=== PATIENT | female | born 1975 | race Caucasian/White ===

== ENCOUNTER 2016-07-12 15:14 | Inpatient (IN) | payer MEDICAID ==
[~2016-07-12] VITALS: Ht 162.6 cm; Wt 62.1 kg
[2016-07-12 14:43] VITALS: BP 116/82
[2016-07-12] MEDS: HYDROcodone/APAP 7.5 MG/325 MG (LORTAB, LORCET PLUS) TABLET PO PRN ×2 (15:47→21:22)
--- NOTE | 2016-07-12 15:59 | Physical Therapy Evaluation ---
PT Evaluation-General Medical Diagnosis Admission Date Jul 12, 2016 at 15:14 Medical Diagnosis: left hip fracture, ARDS, ARF Onset Date: Jul 12, 2016 Therapy Diagnosis Therapy Diagnosis: weakness, abn gait Precautions Precautions/Isolations: Standard Precautions Weight Bear Status Weight Bearing Restriction: Weight Bearing/Tolerated (left LE) Location Restriction: L LE Referral Physician: Ford Reason for Referral: Evaluation/Treatment Medical History Pertinent Medical History: DM Additional Medical History ETOH Current History Began 05/04/16 with esophageal perforation that was subsequently repaired. This was followed by lung decortication. She was intubated and remains with a tracheostomy. She fell on 07/08/16 and sustained a left hip fracture requiring a karen to repair. She is WBAT. She has also had aspiration pneumonia. Approx 1 week ago, her sig other experienced a medical event and . Reviewed History: Yes Social History Home: Single Level Current Living Status: unsure at this time Entry Into Home: Level Entry (per pt report) Prior/Core FIM Prior Level of Function Functional [place] Measure 0=Not Assessed/NA 4=Minimal Assistance 1=Total Assistance 5=Supervision or Setup 2=Maximal Assistance 6=Modified [place] 3=Moderate Assistance 7=Complete [place] Bed Mobility: 7 Transfers (B,C,W/C) (FIM): 7 Gait: 7 Pt indicates she was indep before April of 2016. Indicated that she still drives and able to ambulate in the community. She also indicated that prior to this event she was on disability but did not indicate why. She does not work. PT Evaluation-Current Subjective Agrees to stand EOB with this therapist. Indicates her left hip hurts "really" bad but did not rate or describe it. Objective Patient Orientation: Person, Place Problem Solving: Fair Attachments: Oxygen ROM/Strength ROM Lower Extremities WFL ; left hip flexion to approx 90 degrees only Strenght Lower Extremities Right LE strength is grossly 4-/5 throughout except DF which is 2/5. Left LE strength is grossly 3/5 throughout except DF which is 2/5. Integumentary/Posture Integumentary Refer to nursing notes. Bowel Incontinence: Yes Bladder Incontinence: Yes Posture Normal and symmetrical Neuromuscular (Tone, Coordination, Reflexes) Intact reflexes and no noted tone. Coordination LE's impaired bilaterally. Sensory Vision: Wears Glasses Hearing: Functional Hand Dominance: Right Sensation Right Lower Extremit: Intact Sensation Left Lower Extremity: Intact Transfers Functional [place] Measure 0=Not Assessed/NA 4=Minimal Assistance 1=Total Assistance 5=Supervision or Setup 2=Maximal Assistance 6=Modified [place] 3=Moderate Assistance 7=Complete IndependenceIRFPAI Quality Coding Scale 6 Independent with activity with or without an assistive device 5 Patient requires set up or clean up by helper. Patient completes activity by themselves 4 Supervision or touching assist (CGA). Sunman provide cues , steadying assist 3 The helper provides less than half the effort to complete the activity 2 The helper provides more than half the effort to complete the activity 1 Dependent. The helper does all the effort to complete an activity 7 Patient refused to complete or attempt activity 9 The patient did not perform the activity before the current illness or injury 88 Not attempted due to Medical conditions or safety concerns Transfers (B, C, W/C) (FIM): 2 Scootin Rollin (assist to place legs and sequence as well as roll) Roll Left to Right (QC): 2 Supine to/from Sit: 3 (assist to lift both legs into bed; needed assist to get left leg out of bed) Sit to/from Stand: 2 (max of 1 assist to stand) Sit to Lying (QC): 2 Lying to Sitting/Side of Bed(Q: 3 Sit to Stand (QC): 2 Chair/Vne-bp-Ttgdh Xfer(QC): 2 Car Transfer (QC): 88 (unsafe and unable; ambulance transfer to facility) Cues for sequencing needed. Gait Does the Patient Walk?: Yes Mode of Locomotion: Walk Anticipated Mode of Locomotion: Walk Gait (FIM): 1 (sidestepping only ) Walk 10 feet (QC): 88 (unable; too weak) Walk 50 ft with 2 Turns(QC): 88 Walk 150 ft (QC): 88 Walking 10ft/uneven surface-QC: 88 Gait Assistive Device: FWW Comments/Gait Description Pt only able to stand EOB and take steps sideways with mod to max assist. Too weak to attempt forward gait this visit. Wheelchair Training Does the Pt Use a Wheelchair?: No Stairs Stairs (FIM): 0 (usafe and unable to attempt) 1 Step (curb) (QC): 88 4 Steps (QC): 88 12 Steps (QC): 88 If not tested on admit;explain unable to attempt; weakness Balance Sitting Static: Fair Sitting Dynamic: Fair Standing Static: Fair Standing Dynamic: Poor Picking up an Object (QC): 88 (unable; unsafe) Treatment Sit to stand x 3 at EOB with max assist and sidestepping with max assist with FWW, WBAT. Assessment/Needs Pt presents with complicated medical process involving an esophageal perforation followed by medical complications and surgical interventions. She has been hospitalized since Apr 2016. Most recently, she fell and sustained a left hip fracture that has been repaired. She has a medical history of DM and ETOH use. She has had aspiration pneumonia. Currently she has a trach in place. She has significant LE weakness that impairs functional bed mobility, transfers and gait. Her standing balance is impaired and she has limited functional activity tolerance. She will benefit from skilled PT services to address her deficits and allow her to return to her prior living environment. Unsure of discharge plan due to recent of her significant other. Rehab Potential: Fair Post Rehab Potential-Barriers: Complicated medical stay PT Short Term Goals Short Term Goals Time Frame: Jul 26, 2016 Transfers (B,C,W/C) (FIM): 4 Gait (FIM): 4 Distance (FIM): 3=150 ft Gait Assistive Device: FWW Stairs (FIM): 2 # of Steps: 4 Stairs Level of Assist: 4 PT Biological Sciences Instructor Goals Usp Goals PT Biological Sciences Instructor Goals Time Frame: Aug 09, 2016 Transfers (B,C,W/C) (FIM): 6 Sit to Lying (QC): 6 Lying-Sitting on Side/Bed(QC): 6 Sit to Stand (QC): 6 Roll Left to Right (QC): 6 Chair/Qqe-wy-Xkgbr Xfer(QC): 6 Car Transfer (QC): 5 Does the Patient Walk: Yes Gait (FIM): 6 Gait distance (FIM): 3=150 ft Walk 10 feet (QC): 6 Walk 10ft-Uneven Surface(QC): 6 Walk 50ft with 2 Turns (QC): 6 Walk 150 ft (QC): 6 Gait Level of Assist: 6 Gait Assistive Device: FWW Stairs (FIM): 5 # of Steps: 8 1 Step (curb) (QC): 5 4 Steps (QC): 5 12 Steps (QC): 88 Stairs Level Of Assist: 5 Picking up an Object (QC): 5 Goals set for pt to be mod indep with functional mobility to allow her to return home as before. PT Plan Problem List Problem List: Activity Tolerance, Functional Strength, Safety, Balance, Gait, Transfer, Bed Mobility Treatment/Plan Treatment Plan: Continue Plan of Care Treatment Plan: Bed Mobility, Education, Functional Activity Tavares, Functional Strength, Group Therapy (socialization, education), Gait, Safety, Therapeutic Exercise, Transfers Treatment Duration: Aug 09, 2016 # of days/week 5-6 Visits Per Week: 10-15 Minutes/Day (M-F): 60-90 Minutes/Day (Sat/Marcano): prn Pt/Family Agrees w/Plan: Yes Safety Risks/Education Patient Education: Transfer Techniques, Safety Issues Teaching Recipient: Patient Teaching Methods: Demonstration, Discussion Response to Teaching: Reinforcement Needed Discharge Recommendations Plan Progress functional mobility and gait. Therapy D/C Recommendations: Physical Therapy Home Care Time/GCodes Time In: 1500 Time Out: 1535 Total Billed Treatment Time: 35 Total Billed Treatment visit EVHigh 15 FA 20 Pt arrived via ambulance this date. Fatigued from transfer. DALIA PÉREZ PT Jul 12, 2016 15:59
[2016-07-12] MEDS: NYSTATIN ORAL SUSP 5 ML UDC PO SCH ×2 (17:00→21:21)
[2016-07-12 18:00] VITALS: BP 112/76
[2016-07-12] MEDS: CYCLOBENZAPRINE 10 MG (FLEXERIL) TAB PO PRN (18:22)
[2016-07-12] MEDS: inSUlin (REGULAR) HUMAN 1 UNIT/0.01 ML (CHARGE PER UNIT) SC SCH (20:02)
[2016-07-12] MEDS ORDERED: NON-FORMULARY MEDICATION 1 EA EA SC SCH (21:00)
[2016-07-12] MEDS: LORazepam 0.5 MG (ATIVAN) TABLET PEG PRN (21:22)
[2016-07-12] MEDS: CARVEDILOL 12.5 MG (COREG) TABLET PO SCH (21:22)
[2016-07-12] MEDS: inSUlin DETERMIR 1 UNIT/0.01 ML (LEVEMIR) CHARGE PER UNIT SQ SCH (21:23)
[2016-07-13 06:00] VITALS: BP 141/74
[2016-07-13] MEDS: inSUlin (REGULAR) HUMAN 1 UNIT/0.01 ML (CHARGE PER UNIT) SC SCH ×4 (06:00→21:12)
[2016-07-13 06:46] LABS: BASOPHILS % (AUTO) 0 % (0-10); EOSINOPHILS # (AUTO) 0.3 10^3/uL (0.0-0.3); EOSINOPHILS % (AUTO) 4 % (0-10); LYMPHOCYTES # (AUTO) 1.6 X 10^3 (1.0-4.0); LYMPHOCYTES % (AUTO) 28 % (12-44); MEAN CORPUSCULAR HEMOGLOBIN 28 PG (25-34); MEAN CORPUSCULAR HGB CONC 31 G/DL (32-36); MEAN CORPUSCULAR VOLUME 90 FL (80-99); MEAN PLATELET VOLUME 10.7 FL (7.4-10.4); MONOCYTES # (AUTO) 0.6 X 10^3 (0.0-1.0); MONOCYTES % (AUTO) 10 % (0-12); NEUTROPHILS # (AUTO) 3.4 X 10^3 (1.8-7.8); NEUTROPHILS % (AUTO) 58 % (42-75); PLATELET COUNT 268 10^3/uL (130-400); RED BLOOD COUNT 3.51 10^6/uL (4.35-5.85); WHITE BLOOD COUNT 5.9 10^3/uL (4.3-11.0)
--- NOTE | 2016-07-13 06:58 | Pulmonary Consultation ---
History of Present Illness History of Present Illness Date of Consultation 07/13/16 06:53 Date of Admission History of Present Illness 40yo transferred from [facility] after being on ventilator with ARDS aspiration pneumonia and right hydropneumothorax Allergies and Home Medications Allergies Coded Allergies: Sulfa (Sulfonamide Antibiotics) (Verified Allergy, Mild, Rash, 07/12/16) Home Medications Aspirin 81 Mg Tablet.dr 81 MG PO DAILY (Reported) Carvedilol 12.5 Mg Tablet 12.5 MG PO BID (Reported) Cyclobenzaprine HCl 10 Mg Tablet 10 MG PO TID PRN PRN SPASMS (Reported) Hydrocodone/Acetaminophen 1 Each Tablet 1 TAB PO Q4H PRN PRN PAIN (Reported) Insulin Glargine,Hum.rec.anlog 100 Unit/1 Ml Vial 18 UNIT SQ BID (Reported) Insulin Lispro 100 Unit/1 Ml Vial SQ UD (Reported) </= 140 = NO CORRECTIONAL 141-180= 2 UNITS 181-220= 5 UNITS 221-280= 8 UNITS Nystatin 100,000 Unit/1 Ml Oral.susp 1 ML PO QID (Reported) Past Ngrhwbm-Anxhcu-Zxvxig Hx Patient Social History Alcohol Use: Past History Recreational Drug Use: Yes (past hx) Drug of Choice: polydrug abuse, meth Smoking Status: Current Everyday Smoker Type Used: Cigarettes Recent Foreign Travel: No Contact w/Someone Who Travel: No Recent Infectious Disease Expo: No Recent Hopitalizations: Yes Physical Abuse Screen: No Sexual Abuse: No Seasonal Allergies Seasonal Allergies: No Respiratory Respiratory Disorders: Pneumonia Gastrointestinal Gastrointestinal Disorders: Gastrointestinal Bleed, Esophageal Varices Musculoskeletal Musculoskeletal Disorders: Fractures HEENT Hearing Impairment: Denies Psychosocial Behavioral Health Disorders: Anxiety, Depression Blood Transfusions Adverse Reaction to a Blood Tr: No Review of Systems Constitutional: : Malaise: Sweats: WeaknessNo: Chills, Fever, Other Respiratory: : Cough: Dry: SOB with excertion: Shortness of breath Cardiovascular: No: Chest Pain, Edema, Lt Headedness, Orthopnea, Other, Palpitations, Paroxysmal Noc. Dyspnea Neurological: : Weakness Exam Exam Vital Signs Date Time Temp Pulse Resp B/P Pulse Ox O2 Delivery O2 Flow Rate FiO2 07/12/16 20:20 Trach Collar 4.00 07/12/16 18:00 96.6 73 20 112/76 100 Trach Collar 4.00 1/19/17 16:30 Trach Collar 4.00 07/12/16 14:43 96.1 86 22 116/82 99 Trach Collar 4.00 General Appearance: No Apparent Distress Anxious Chronically ill Neck: Full Range of Motion Respiratory: No Accessory Muscle Use No Respiratory Distress Decreased Breath Sounds Cardiovascular: Regular Rate, Rhythm No Edema No Gallop Gastrointestinal: normal bowel sounds non tender soft Neurologic/Psychiatric: Alert Oriented x3 Skin: Normal Color Warm/Dry Lymphatic: No Adenopathy Results Lab Laboratory Tests 07/13/16 06:36 Assessment/Plan Assessment/Plan Tracheostomy s/p ARDS -Cap trach during day -when not capped use heated humidity -Check CXR -obtain more records from [facility]. Clinical Quality Measures DVT/VTE Risk/Contraindication: Risk Factor Score Per Nursin RFS Level Per Nursing on Admit: 3=High AUDELIA JUSTICE DO Jul 13, 2016 06:58
[2016-07-13 07:17] LABS: ALANINE AMINOTRANSFERASE 16 U/L (0-55); ALBUMIN 2.9 G/DL (3.2-4.5); ANION GAP 7 MMOL/L (5-14); ASPARTATE AMINO TRANSFERASE 16 U/L (5-34); BILIRUBIN,TOTAL 0.3 MG/DL (0.1-1.0); BLOOD UREA NITROGEN 9 MG/DL (7-18); BUN/CREATININE RATIO 18; CALCIUM 9.1 MG/DL (8.5-10.1); CARBON DIOXIDE 31 MMOL/L (21-32); CHLORIDE 100 MMOL/L (98-107); GFR ESTIMATED > 60; GLUCOSE 162 MG/DL (70-105); POTASSIUM 4.5 MMOL/L (3.6-5.0); SODIUM 138 MMOL/L (135-145); TOTAL PROTEIN 6.6 G/DL (6.4-8.2)
--- NOTE | 2016-07-13 08:08 | PM & R (SOAP) Progress Note ---
Subjective Subjective/Events-last exam Patient was seen in her room this AM Appreciate labs and DR Hidalgo note.CXR pending.Theapy assessments pending other than PT which is reviewed Patient with weakness both lower extremities left >rt Review of Systems Neurological: : Weakness Objective Exam Last Set of Vital Signs Vital Signs Date Time Temp Pulse Resp B/P Pulse Ox O2 Delivery O2 Flow Rate FiO2 07/13/16 06:00 98.3 84 17 141/74 98 Trach Collar 4.00 Capillary Refill : I&O Bad tableGeneral: Alert, Oriented X3, Cooperative, No Acute Distress HEENT: Atraumatic, PERRLA, EOMI, Mucous Memb Moist/[place] Neck: Other (trach) Lungs: Clear to Auscultation Heart: Regular Rate Abdomen: Normal Bowel Sounds, Soft, No Tenderness, Other (Peg tube in place) Extremities: Other (trace edema) Neuro: Other (Weakness both lower legs left >rt) Results Lab Laboratory Tests 07/12/16 18:53: Glucometer 252H 07/12/16 20:45: Glucometer 276H 07/13/16 06:34: Glucometer 165H 07/13/16 06:36: Alanine Aminotransferase (ALT/SGPT) 16, Albumin 2.9L, Alkaline Phosphatase 86, Anion Gap 7, Aspartate Amino Transf (AST/SGOT) 16, BUN/Creatinine Ratio 18, Basophils # (Auto) 0.0, Basophils (%) (Auto) 0, Blood Urea Nitrogen 9, Calcium Level 9.1, Carbon Dioxide Level 31, Chloride Level 100, Creatinine 0.50L, Eosinophils # (Auto) 0.3, Eosinophils (%) (Auto) 4, Estimat Glomerular Filtration Rate > 60, Glucose Level 162H, Hematocrit 32L, Hemoglobin 9.8L, Hemoglobin A1c 6.0, Lymphocytes # (Auto) 1.6, Lymphocytes (%) (Auto) 28, Mean Corpuscular Hemoglobin 28, Mean Corpuscular Hemoglobin Concent 31L, Mean Corpuscular Volume 90, Mean Platelet Volume 10.7H, Monocytes # (Auto) 0.6, Monocytes (%) (Auto) 10, Neutrophils # (Auto) 3.4, Neutrophils (%) (Auto) 58, Platelet Count 268, Potassium Level 4.5, Red Blood Count 3.51L, Red Cell Distribution Width 16.0H, Sodium Level 138, Total Bilirubin 0.3, Total Protein 6.6, White Blood Count 5.9 Assessment/Plan Assessment Left hip frx s/p repair S/P trach for pneumonia and ards S/P espohageal rupture and repair OSH-with hx of espohageal varices NPO status on tube feeds HX of substance abuse and etoh use Plan PT?OT/ST assessments ongoing F/U with Lucy and check CXR Trial of capping parul RT F/U DR piña to see this 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
[2016-07-13] MEDS: NYSTATIN ORAL SUSP 5 ML UDC PO SCH ×4 (08:50→21:12)
[2016-07-13] MEDS: ASPIRIN E.C. 81 MG (ECOTRIN) TAB PO SCH (08:50)
[2016-07-13] MEDS: CARVEDILOL 12.5 MG (COREG) TABLET PO SCH ×2 (08:50→21:11)
[2016-07-13] MEDS: inSUlin DETERMIR 1 UNIT/0.01 ML (LEVEMIR) CHARGE PER UNIT SQ SCH ×2 (08:51→21:13)
[2016-07-13] MEDS: HYDROcodone/APAP 7.5 MG/325 MG (LORTAB, LORCET PLUS) TABLET PO PRN ×3 (08:51→21:29)
[2016-07-13] MEDS ORDERED: INSU100V SQ (09:22)
[2016-07-13] MEDS ORDERED: ASPI-983 PO (09:22)
[2016-07-13] MEDS ORDERED: INSU100V6 SQ (09:22)
[2016-07-13] MEDS ORDERED: HYDR-3816 PO (09:22)
[2016-07-13] MEDS ORDERED: CYCL10TA9 PO (09:22)
[2016-07-13] MEDS ORDERED: CARV12.53 PO (09:22)
[2016-07-13] MEDS ORDERED: NYST1000 PO (09:22)
--- NOTE | 2016-07-13 09:22 | HISTORY AND PHYSICAL ---
DATE OF ADMISSION: 07/12/2016 CHIEF COMPLAINT: Difficulty with walking. HISTORY OF PRESENT ILLNESS: The patient is a 40-year-old female recent who lives in [place], [place] who was admitted to an outside hospital in [place] due to esophageal perforation associated with sepsis with various procedures and is currently n.p.o. and on tube feeds and has a trach. Tracheostomy was done 05/22/2016 for ongoing treatment of ARDS. The patient was progressing with mobilization with therapies until she fell on the of this month at an outside facility sustaining a left hip fracture and she is now status post IM nailing with orthopedics. Prior to this illness which began 04/25/2016, it was reported the patient lived with her adult children but was independent with her ADLs. Her spouse apparently during her illness but plan is for her to go home with her daughter who has a history of ethanol use in the past. The patient was followed by hospitalist service, GI, Orthopedics, and general surgery. Currently, she requires assistance for ADLs, is dependent for tube feeds. Communication is impaired due to trach. H&H on 07/11 was 9.2/30.3, platelet count 227,000, WBC count 7.3, albumin 2.9, calcium 8.8. She was treated for pneumonia as well and empyema while at the outside facility. She was followed by infectious disease as well. Orthopedics was Dr. Irwin. PAST MEDICAL HISTORY: 1. Diabetes mellitus. 2. Upper GI bleed. 3. Polydrug abuse including methamphetamine. 4. Hyperlipidemia. 5. Depression. 6. Prior suicide attempt. PAST SURGICAL HISTORY: As per above and cyst removal. ALLERGIES: Sulfa. FAMILY HISTORY: Noncontributory. SOCIAL HISTORY: As per above. Lives in [place], [place]. REVIEW OF SYSTEMS: Ten-point review of systems is significant for dysphasia, n.p.o. on tube feedings. Generalized weakness and anxiety. The patient requested Xanax. MEDICATIONS: 1. Lovenox 40 mg subcutaneous q.24 hours for DVT prophylaxis. 2. ASA 81 mg per PEG daily. 3. Coreg 12.5 mg per PEG b.i.d. 4. Insulin Levemir 18 units subcutaneous b.i.d. 5. Sliding scale insulin regimen. 6. Lorazepam 0.5 mg per PEG q.4 hours for anxiety. 7. Nystatin swish and spit 5 mL q.i.d. 8. Flexeril 10 mg per PEG t.i.d. p.r.n. muscle spasms. 9. Lortab 7.5, 1 tablet q.4 hours per PEG p.r.n. moderate pain. PHYSICAL EXAMINATION: Significant for a female, appearing somewhat older than her stated age, lying in bed in no acute distress. VITAL SIGNS: Blood pressure 112/76, O2 sat 100% on trach collar 4 liters. Blood pressure 112/76, respirations 20, pulse 73. HEENT: Vision and hearing appear grossly intact. Speech is impaired by trach. She is able to communicate by writing down on pad. NECK: Trach in place. No drainage noted. HEART: Regular rhythm. LUNGS: Clear. ABDOMEN: PEG tube in place, clean, soft, nontender. Bowel sounds present. EXTREMITIES: No lower leg edema. No calf tenderness. MUSCULOSKELETAL: The patient has an island dressing over the left hip. No drainage noted. NEUROLOGIC: Right lower extremity strength grossly 4/5 except dorsiflexion which is 2/5. Left lower extremity strength is grossly 3/5 throughout except dorsiflexion which is 2/5. The patient has good minus strength in both upper extremities with functional active range of motion. Coordination of the lower extremities is impaired bilaterally. Cognitively appears grossly intact. Sensation grossly intact to touch. IMPRESSION: 1. Ambulatory dysfunction secondary to fall, fracture left femur, status post IM nailing, Dr. Irwin [facility] [place]. 2. Esophageal perforation with underlying esophageal varices with resulting sepsis, pneumonia and empyema, status post repair. Currently n.p.o. status post PEG on tube feeds. 3. Status post trach for Treatment of ARDS on collar trach collar. 4. General debilitation related to all of this. 5. History of ethanol and substance abuse. 6. Diabetes mellitus, controlled with medication. 7. Anxiety, on medication. 8. DVT prophylaxis on Lovenox subcutaneous. PLAN: The patient will have a comprehensive program of inpatient rehabilitation with goal of maximizing level of functional independence prior to discharge home with her daughter. The patient will have PT/OT 90 minutes per day, each discipline, 5 days a week, when not being seen by speech therapy for gait strengthening, conditioning, balance, ADLs, any patient/family/caregiver training necessary, any adaptive equipment and training necessary. Speech therapy to do cognitive speech and swallow screen, maintain n.p.o. for now. Nutritional consult done. Tube feeds adjusted. PEG tube and trach tube care. Check chest x-ray and routine labs in a.m. Consult Dr. Winters for medical management of this out of town patient. Consult Dr. Ayala for trach care and follow-up recommendations as needed. set up worker to assist with discharge planning, community reentry. Respiratory therapy to assist with trach collar, trach management, monitoring O2 saturation. ESTIMATED LENGTH OF STAY: 3 weeks. PROGNOSIS: Therapy with cardiac and fall precautions. Follow-up with orthopedics, GI, and general surgery upon discharge from this facility. DIET: N.p.o. on tube feeds. CODE STATUS: Full code. POST ADMISSION PHYSICIAN ASSESSMENT: The preadmission screen agrees with the post admission assessment that the patient is a good candidate for inpatient rehabilitation. She appears to be well motivated to participate in 3 hours of therapy a day. She should be able tolerate 3 hours of therapy a day from a medical and surgical standpoint. She should benefit from the 3 hours of therapy a day. She has a reasonable discharge plan, reasonable discharge rehabilitation goals and a supportive family. The goals would be for her to be modified independent to supervision for ADLs and mobility skills prior to discharge home with independence in tube feeds with family training if necessary. The patient has various comorbidities that need to be closely monitored with medications and treatments adjusted on a daily basis as needed. These include the ongoing trach care, tube feed care, her diabetes mellitus, her anxiety, and wound care. BARRIERS TO DISCHARGE: Barriers discharge for this patient who had been on independent prior to this are for her to be modified independent to supervision for ADLs and mobility skills, tube feeds as necessary or at least family training for that and to possibly wean her from trace or provide communication through Passy-Mykel valve prior to discharge home with her daughter so as to lessen the burden of the caregivers. RISKS FOR THIS PATIENT: Include: 1. Recurrent respiratory failure. 2. Trach site infection. 3. PEG tube site infection. 4. Recurrent respiratory infection. 5. Aspiration. 6. DVT. 7. Pulmonary embolism. 8. Fall. 9. Fracture. 10. Wound infection of the hip. 11. Contractures. 12. Urinary retention. 13. UTI. 14. Poorly controlled diabetes and anxiety. Job ID: [id number] Dictated Date: 07/12/2016 21:48:08 Radio Technician Date: 07/13/2016 08:59:49/masood TARANGO
[2016-07-13] MEDS: ENOXAPARIN 40 MG/0.4 ML (LOVENOX) SYR SC SCH (10:45)
--- NOTE | 2016-07-13 11:03 | Diagnostic Imaging Report ---
EXAMINATION: PA and lateral views of the chest. INDICATION: Status post tracheostomy placement. FINDINGS: There is a tracheostomy tube in place with the tip projecting at the level of the clavicles and trachea. There is a PICC line terminating at the upper SVC level. A tube over the left upper abdomen is presumably a gastrostomy tube. There is gaseous distention of the stomach with an air/fluid level seen. The lungs demonstrate minimal vascular congestion and atelectasis in the right perihilar and right basilar areas. The heart size is borderline enlarged. No effusion or pneumothorax. The mediastinum and carlos appear unremarkable. IMPRESSION: Mild pulmonary vascular congestion. Right perihilar subsegmental atelectasis. Dictated by: Dictated on workstation # [id number]
[2016-07-13] MEDS: RT-ALBUTEROL/IPRATROPIUM 3 ML (DUONEB) VIAL INH SCH ×3 (11:08→20:06)
--- NOTE | 2016-07-13 11:20 | Physical Therapy Daily Note ---
PT Daily Note-Current Subjective Agreeable to PT. Reports she rested well last night. Reports she gets tired quickly Pain Numeric Pain Scale: 5-Moderate Pain Location: Left Location Body Site: Hip Pain Description: Ache (constant and nagging. ) Mental Status Patient Orientation: Person, Place, Time, Situation trach with oxygen at 10l/min Transfers Functional [place] Measure 0=Not Assessed/NA 4=Minimal Assistance 1=Total Assistance 5=Supervision or Setup 2=Maximal Assistance 6=Modified [place] 3=Moderate Assistance 7=Complete IndependenceIRFPAI Quality Coding Scale 6 Independent with activity with or without an assistive device 5 Patient requires set up or clean up by helper. Patient completes activity by themselves 4 Supervision or touching assist (CGA). [place] provide cues , steadying assist 3 The helper provides less than half the effort to complete the activity 2 The helper provides more than half the effort to complete the activity 1 Dependent. The helper does all the effort to complete an activity 7 Patient refused to complete or attempt activity 9 The patient did not perform the activity before the current illness or injury 88 Not attempted due to Medical conditions or safety concerns Sup to from sit with mod assist with assist with both legs and some assist with her trunk. Needed assist to transition to sitting on side of bed with feet on the floor. SPT x 1 with FWW with min assist. Pt unable to come to full stand to return to bed from the chair. Required max assist dance style to transition to the bed. Exercises Supine Ex: Ankle pumps, Pelvic tilt, Quad Set, Glut sets, Heel Slides, Short Arc Quads, Hip abd/add Supine Reps: 10 Seated Therapy Exercises: Ankle pumps, Long arc quads, Hip flexion Seated Reps: 10 ther ex peformed to strengthen LE's for functional transfers. Seated EOB maintained x 15 minutes for deep breathing and work to increase functional activity tolerance. Pt in bed post treatment with needs met. Assessment Current Status: Good Progress Progressing. New admit. Complicated history that will make progress slow but anticipate it to be steady. Pt motivated and compliant. PT Short Term Goals Short Term Goals Time Frame: Jul 26, 2016 Transfers (B,C,W/C) (FIM): 4 Gait (FIM): 4 Distance (FIM): 3=150 ft Gait Assistive Device: FWW Stairs (FIM): 2 # of Steps: 4 Stairs Level of Assist: 4 PT Intermediate Goals Geospatial Systems Integrator Goals PT Intermediate Goals Time Frame: Aug 09, 2016 Transfers (B,C,W/C) (FIM): 6 Sit to Lying (QC): 6 Lying-Sitting on Side/Bed(QC): 6 Sit to Stand (QC): 6 Rollin (assist to place legs and sequence as well as roll) Roll Left to Right (QC): 6 Chair/Zci-hp-Oxerr Xfer(QC): 6 Car Transfer (QC): 5 Does the Patient Walk: Yes Gait (FIM): 6 Gait distance (FIM): 3=150 ft Walk 10 feet (QC): 6 Walk 10ft-Uneven Surface(QC): 6 Walk 50ft with 2 Turns (QC): 6 Walk 150 ft (QC): 6 Gait Level of Assist: 6 Gait Assistive Device: FWW Stairs (FIM): 5 # of Steps: 8 1 Step (curb) (QC): 5 4 Steps (QC): 5 12 Steps (QC): 88 Stairs Level Of Assist: 5 Picking up an Object (QC): 5 PT Plan Problem List Problem List: Activity Tolerance, Functional Strength, Safety, Balance, Gait, Transfer Treatment/Plan Treatment Plan: Continue Plan of Care Treatment Plan: Bed Mobility, Education, Functional Activity Tavares, Functional Strength, Group Therapy (socialization, education), Gait, Safety, Therapeutic Exercise, Transfers Treatment Duration: Aug 09, 2016 Visits Per Week: 10-15 Minutes/Day (M-F): 60-90 Minutes/Day (Sat/Marcano): prn Safety Risks/Education Patient Education: Transfer Techniques, Safety Issues Teaching Recipient: Patient Teaching Methods: Demonstration, Discussion Response to Teaching: Verbalize Understanding, Return Demonstration, Reinforcement Needed Time/GCodes Time In: 1000 Time Out: 1100 Total Billed Treatment Time: 60 Total Billed Treatment visit FA35 EX 25 DALIA PÉREZ PT Jul 13, 2016 11:20
--- NOTE | 2016-07-13 12:55 | Consultation ---
History of Present Illness History of Present Illness Patient Consulted On(yamile/time) 07/13/16 12:51 Date of Admission History of Present Illness patient came from the Hospital in [place] for rehabilitation. Patient has a hip fracture. Patient has a trach and PICC line and PEG tube. Patient had a perforated esophageal ulcer. Patient has history of diabetes, polydrug abuse including amphetamine meth, depression and prior suicide attempts Allergies and Home Medications Allergies Coded Allergies: Sulfa (Sulfonamide Antibiotics) (Verified Allergy, Mild, Rash, 07/12/16) Home Medications Aspirin 81 Mg Tablet.dr 81 MG PO DAILY (Reported) Carvedilol 12.5 Mg Tablet 12.5 MG PO BID (Reported) Cyclobenzaprine HCl 10 Mg Tablet 10 MG PO TID PRN PRN SPASMS (Reported) Hydrocodone/Acetaminophen 1 Each Tablet 1 TAB PO Q4H PRN PRN PAIN (Reported) Insulin Glargine,Hum.rec.anlog 100 Unit/1 Ml Vial 18 UNIT SQ BID (Reported) Insulin Lispro 100 Unit/1 Ml Vial SQ UD (Reported) </= 140 = NO CORRECTIONAL 141-180= 2 UNITS 181-220= 5 UNITS 221-280= 8 UNITS Nystatin 100,000 Unit/1 Ml Oral.susp 1 ML PO QID (Reported) Past Jysuejw-Yqzyei-Pdyqov Hx Patient Social History Alcohol Use: Past History Recreational Drug Use: Yes (past hx) Drug of Choice: polydrug abuse, meth Smoking Status: Current Everyday Smoker Type Used: Cigarettes Recent Foreign Travel: No Contact w/Someone Who Travel: No Recent Infectious Disease Expo: No Recent Hopitalizations: Yes Physical Abuse Screen: No Sexual Abuse: No Seasonal Allergies Seasonal Allergies: No Respiratory Respiratory Disorders: Pneumonia Gastrointestinal Gastrointestinal Disorders: Gastrointestinal Bleed, Esophageal Varices Musculoskeletal Musculoskeletal Disorders: Fractures HEENT Hearing Impairment: Denies Psychosocial Behavioral Health Disorders: Anxiety, Depression Blood Transfusions Adverse Reaction to a Blood Tr: No Review of Systems-General Constitutional: no symptoms reported EENTM: other (ttrach in place) Respiratory: wheezing other (ingestion) Cardiovascular: no symptoms reported 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) Genitourinary: no symptoms reported Physical Exam-General Problems Physical Exam Vital Signs Vital Sign - Last 12Hours 07/12/16 07/13/16 14:43 09:02 Temp 96.1 Pulse 86 Resp 22 B/P 116/82 Pulse Ox 99 O2 Delivery Trach Collar O2 Flow Rate 4.00 FiO2 35 Capillary Refill : General Appearance: no apparent distress thin Eyes: Bilateral Eye Normal Inspection HEENT: normal ENT inspection other (has a trach) Respiratory: normal breath sounds no respiratory distress no accessory muscle use Cardiovascular: regular rate, rhythm no murmur Gastrointestinal: non tender soft Assessment/Plan Assessment/Plan Admission Diagnosis/Plan hip fracture. Perforated esophageal ulcer . Hypertension diabetes. Previous suicide attempts. Depression Clinical Quality Measures DVT/VTE Risk/Contraindication: Risk Factor Score Per Nursin RFS Level Per Nursing on Admit: 3=High RANDI RIBEIRO DO Jul 13, 2016 12:55
[2016-07-13] MEDS ORDERED: RT-ALBUTEROL/IPRATROPIUM 3 ML (DUONEB) VIAL INH PRN (13:00)
--- NOTE | 2016-07-13 13:29 | Occupational Therapy Eval ---
OT Evaluation-General/PLF Medical Diagnosis Admission Date Jul 12, 2016 at 15:14 Medical Diagnosis: left hip fracture, ARDS, ARF Onset Date: May 04, 2016 Therapy Diagnosis Therapy Diagnosis: weakness, decr self care, decr functional mobility, decr activity tolerance Height/Weight Height (Feet): 5 Height (Inches): 4.00 Weight (Pounds): 142 Weight (Ounces): 1.6 Precautions Precautions/Isolations: Aspiration, Fall Prevention, Standard Precautions, Contact/Enteric Isolation (c diff), Pressure Ulcer Safety Interventions: Move Closer to Desk, Reorient-PRN Weight Bear Status Weight Bearing Restriction: Weight Bearing/Tolerated (left LE) Location Restriction: L LE Referral Physician: Ford Medical History Pertinent Medical History: DM, Fractures, Smoking Additional Medical History Initial injury perforated esophagus. Developed acute respiratory failure with hypoxemia, ARDs, pneumonia, collapsed lung, chest tube, trach, PEG tube, septic shock, sepsis. She fell and broke her L hip, with IM karen. during hospitalization. Hx multiple substance abuse, suicide attempt, seizures Current History Admitted via ambulance, with fatigue Reviewed History: Yes Social History Home: Single Level Current Living Status: Entry Into Home: Level Entry (per pt report) ADL-Prior Level of Function ADL PLOF Comments Pt reported that she was able to manage her basic self care needs prior to hospitalization. She does not drive and has worked at [employer]. She said that she will be going to live with her son on discharge OT Current Status Subjective Pt seen in room in bed, reported pain 3-4/10 in L hip (did not describe). Pt has trach and no speaking valve so communication by writing Appearance Alert, cooperative, motivated Mental Status/Objective Patient Orientation: Person, Place, Time, Situation Attachments: Central Line, IV, Oxygen, PEG Tube, Other-See Comments (trach) Current Glasses/Contacts: Yes Hearing Aids: No Dentures/Partials: Yes (lost them) Hand Dominance: Right Upper Extremity ROM Grossly WFL bilat Upper Extremity Coordination Grossly WFL Upper Extremity Strength Grossly 4/5 bilat ADL-Treatment ADL-Current All ADLs took much longer than usual due to multiple attachments (O2 or humidified O2, PEG, IV) and difficulty moving L hip Functional [place] Measure 0=Not Assessed/NA 4=Minimal Assistance 1=Total Assistance 5=Supervision or Setup 2=Maximal Assistance 6=Modified [place] 3=Moderate Assistance 7=Complete IndependenceIRFPAI Quality Coding Scale 6 Independent with activity with or without an assistive device 5 Patient requires set up or clean up by helper. Patient completes activity by themselves 4 Supervision or touching assist (CGA). [place] provide cues , steadying assist 3 The helper provides less than half the effort to complete the activity 2 The helper provides more than half the effort to complete the activity 1 Dependent. The helper does all the effort to complete an activity 7 Patient refused to complete or attempt activity 9 The patient did not perform the activity before the current illness or injury 88 Not attempted due to Medical conditions or safety concerns Eating (FIM): 0 (Pt is NPO. Feeding tube which she cannot manage) Eating (QC): 88 Grooming (FIM): 5 (setup to brush hair. has no dentures at this time and no teeth) Oral Hygiene (QC): 88 Bathing (FIM): 5 (Pt washed and dried all parts, sponge bath, supervision, skilled cues, mod techniques. Washed bottom while seated EOB) Shower/Bathe Self (QC): 4 Upper Body Dressing (FIM): 5 (setup) Upper Body Dressing (QC): 5 Lower Body Dressing (FIM): 3 (Help getting sock off and on L foot, skilled cues, mod techniques, getting pants on over feet. Mod assist when standing to pull pants up, FWW) Lower Body Dressing (QC): 3 On/Off Footwear (QC): 3 (Pt did R foot but not L) Toileting (FIM): 3 (Help to manage clothing. pt wiped) Toileting Hygiene (QC): 3 Transfers (B, C, W/C) (FIM): 3 (Mod assist, FWW) Toilet/Commode Transfer (FIM): 3 (BSC, with FWW) Toilet Transfer (QC): 3 Shower Transfer (FIM): 0 Education OT Patient Education: Modified ADL techniques, Progress toward Goal/Update tx plan, Purpose of tx/functional activities, Reviewed precautions, Rehab process, Safety issues, Transfer techniques Teaching Recipient: Patient Teaching Methods: Demonstration, Discussion Response to Teaching: Verbalize Understanding, Return Demonstration OT Short Term Goals Short Term Goals Time Frame: Jul 20, 2016 Lower Body Dressing(FIM): 5 Transfers (B,C,W/C) (FIM): 4 Toilet/Commode Transfer(FIM): 4 Additional Short Term Goals: 2-Verbalize Understanding, 3-ImproveStrength/Tavares 1=Demonstrate adherence to instructed precautions during ADL tasks. 2=Patient will verbalize/demonstrate understanding of assistive devices/ modifications for ADL. 3=Patient will improve strength/tolerance for activity to enable patient to perform ADL's. OT Senior Business Analyst Goals Mcfp Goals Time Frame: Aug 09, 2016 Eating (FIM): 5 Eating (QC): 5 Oral Hygiene (QC): 6 Grooming(FIM): 6 Bathing(FIM): 5 Shower/Bathe Self (QC): 5 Upper Body Dressing(FIM): 6 Upper Body Dressing (QC): 6 Lower Body Dressing(FIM): 6 Lower Body Dressing (QC): 6 On/Off Footwear (QC): 6 Toileting(FIM): 6 Toileting Hygiene (QC): 6 Toilet/Commode Transfer(FIM): 6 Toilet/Commode Transfer (QC): 6 Shower Transfer(FIM): 6 Improve bilat UE strength to 5/5 to help with transfers and ADLs Additional Goals: 2-Verbalize Understanding, 3-ImproveStrength/Tavares 1=Demonstrate adherence to instructed precautions during ADL tasks. 2=Patient will verbalize/demonstrate understanding of assistive devices/ modifications for ADL. 3=Patient will improve strength/tolerance for activity to enable patient to perform ADL's. OT Education/Plan Problem List/Assessment Assessment: Decreased Activ Tolerance, Decreased Safety Aware, Decreased UE Strength, Dependent Transfers, Impaired Bed Mobility, Impaired Funct Balance, Impaired Self-Care Skills Pt would benefit from skilled OT to increase her independence in basic self care to allow her to return to son's home and decrease caregiver bruden Discharge Recommendations Plan/Recommendations: Continue POC Treatment Plan/Plan of Care Treatment,Training & Education: Yes Patient would benefit from OT for education, treatment and training to promote independence in ADL's, mobility, safety and/or upper extremity function for ADL' s. Plan of Care: ADL Retraining, Caregiver Training, Functional Mobility, Group Exercise/Act as Ind (education, exercise, activity tolerance, functional activities, safety), UE Funct Exercise/Act, UE Neuromus Re-Ed/Coord Treatment Duration: Aug 09, 2016 # of days/week 5-6 Visits Per Week: 10-11 Minutes/Day (M-F): 75-90 Minutes/Day (Sat/Marcano): PRN Agreement: Yes Rehab Potential: Fair Time/GCodes Start Time: 11:25 Stop Time: 12:10 Total Time Billed (hr/min): 45 Billed Treatment Time visit, 20 minutes evaluation high complexity, 25 minutes ADL WARD PARISI OT Jul 13, 2016 13:29
--- NOTE | 2016-07-13 14:54 | Therapy Group Daily Note ---
Therapy Daily Group Note Exercises Fine Motor Other/Notes Pt participated socially by introducing self by name, place of and to describe favorite childhood games. Problem solving applied to ask and answer questions to complete cognitive activity. Fine motor activity used to increased dexterity,coordination and strengthening for daily functional tasks. Pt transported back to room. Pt transferred to BSC using FWW for balance CGA. Pt managed clothing and hygiene.Pt transferred to bed using FWW, CGA. Call light in reach, all needs met. Start Time: 13:00 Stop Time: 14:00 Total Billed Treatment Time: 60 Total Billed Treatment 1-GRP DALIA ENGLE Jul 13, 2016 14:54
--- NOTE | 2016-07-13 15:24 | ST Dysphagia Evaluation ---
Speech Evaluation-General Medical Diagnosis left hip fracture, ARDS, ARF Onset Date: Jul 12, 2016 Therapy Diagnosis Therapy Diagnosis: Moderate Oropharyngeal Dysphagia Precautions Precautions: Aspiration Precautions/Isolations: Aspiration, Fall Prevention, Standard Precautions, Pressure Ulcer Referral Referring Physician: Dr. Giuseppe Youngblood Reason for Referral: Evaluation/Treatment Clinical Bedside Swallowing Evaluation Medical History Pertinent Medical History: DM Reviewed History: Yes Social History Current Living Status: unsure at this time Speech PLF/Current-Dysphagia Prior Level of Function Prior to the patient's esophageal perforation, the patient denied dysphagia challenges with any consistency she currently consumed (regular with thin liquids). Subjective The patient was recently admitted to [facility] following an esophageal perforation. The patient greeted the clinician appropriately and agreed to participate in the dysphagia evaluation on this date. Cognitive Status Patient Orientation: Person, Place, Time, Situation Oral Motor Skills Dentition: Edentalous (The patient is edentulous, however, reports she has dentures that were lost at her previous hospital stay.) Ability to Follow Directions: Good The patient is currently NPO pending the swallowing evaluation. Oral Expression Ability: No Impairment Tracheostomy Type: Cuffed (-Deflated cuff observed.), Unplugged, Speaking Valve (A speaking valve is present, however, the patient stated her respirations struggle with the device in place.), Shiley Observation: Excessive Excretion Hypopharynx Other Contributing Factors: PEG Tube Voice Voice Phonatory-Based Quality: Aphonia (With digital occlusion (by clinican and patient), the patient demonstrated a strained vocal quality.) Voice Pitch: Moderately Low Voice Loudness: Severely Soft/Quiet Face Facial Symmetry: Symmetrical Oral-Facial Assessment Oral-Facial Dentition: Normal Labial Seal Description: Normal Smile: Normal Puff Cheeks: Normal Lingual Protrusion: Normal Lingual ROM: Normal Lingual Strength: Normal Pharynx Velopharyngeal Move.: Normal Volitional Dry Swallow: Yes Dysphagia Evaluation Consistencies Presented: Thin Liquid (Teaspoon), Honey Thick Liquid (Teaspoon, Cup Sip), Pureed Oral Phase: Reduced Oral Transit The patient demonstrated mildly increased posterior transit time of puree consistencies. Pharyngeal Phase: Multiple Swallow Attempts, Reduced Laryngeal Elevation The patient demonstrated multiple swallow attempted (one average, three) for all bolus material. *Bolus material was dyed blue to aid in the visualization of possible aspiration from the trach site with each consistency tested. - Thin Liquid, Honey-Thick, Puree: No signs/symptoms of aspiration were demonstrated with multiple boluses of thin liquid, honey-thick liquid, or puree. The patient demonstrated multiple, effortful swallows with all consistencies tested. No tinged bolus material was suctioned from the patient's tracheostomy site by the clinician following the assessment. - Due to the patient's medical history (esophageal perforation, PEG tube) and the presence of marked hypopharyngeal secretions, a video swallow will be recommended prior to the onset of an oral diet. The patient will be re- evaluated on 07/15/16. If the patient continues to not demonstrate signs/ symptoms of aspiration, a video swallow will be requested. Dietary Recommendations: NPO Liquid Recommendations: NPO 1. Frequent oral care to reduce the entrance of bacteria from the oral cavity to the lungs should aspiration of secretions occur. 2. Moist toothettes (drained) for oral moisture. The patient was educated by the clinician and was agreeable to use the toothette for comfort, only (not swallow the water). Dysphagia Evaluation Summary Moderate oropharyngeal dysphagia characterized by increased posterior transfer of bolus material and decreased laryngeal elevation. Speech Short Term Goals Short Term Goals Short Term Goals 1. The patient will tolerate trials of the least restrictive diet without signs/ symptoms of aspiration or laryngeal penetration. 2. The patient will participate in a video swallow to definitely rule out aspiration. 3. The patient will demonstrate swallowing strategies, independently. 4. The patient will demonstrate base of tongue, pharyngeal, and laryngeal elevation exercises with 80% accuracy and mild clinician cueing. Time Frame-STG: Two Weeks Speech Fleet Manager/Dispatch Goals Penitentiary Goals 1. The patient will tolerate the least restrictive diet without signs/symptoms of aspiration or laryngeal penetration. Time Frame: Eight Weeks Speech-Plan Treatment Plan Speech Therapy Treatment Plan: Continue Plan of Care Treatment Duration: Sep 07, 2016 # of days/week Four to Five Visits Per Week: Four to Five Minutes/Day (M-F): 30 Rehab Potential: Guarded Safety Risks/Education Teaching Recipient: Patient Teaching Methods: Discussion Response to Teaching: Verbalize Understanding Education Topics Provided: Plan of Care, Signs/symptoms of aspiration Time Speech Therapy Time In: 09:30 Speech Therapy Time Out: 10:00 Total Billed Time: 30 Billed Treatment Time 1 AUNG FONSECA Jul 13, 2016 15:24
[2016-07-13] MEDS: LORazepam 0.5 MG (ATIVAN) TABLET PEG PRN ×2 (15:56→21:11)
[2016-07-13 18:38] VITALS: BP 110/74
[2016-07-13] MEDS: CYCLOBENZAPRINE 10 MG (FLEXERIL) TAB PO PRN (19:43)
[2016-07-14] MEDS: HYDROcodone/APAP 7.5 MG/325 MG (LORTAB, LORCET PLUS) TABLET PO PRN ×4 (04:03→18:24)
[2016-07-14 06:00] VITALS: BP 95/62
[2016-07-14] MEDS: inSUlin (REGULAR) HUMAN 1 UNIT/0.01 ML (CHARGE PER UNIT) SC SCH ×4 (06:00→20:59)
[2016-07-14] MEDS: RT-ALBUTEROL/IPRATROPIUM 3 ML (DUONEB) VIAL INH SCH ×4 (06:45→19:12)
[2016-07-14 08:50] VITALS: BP 110/65
[2016-07-14] MEDS: NYSTATIN ORAL SUSP 5 ML UDC PO SCH ×4 (08:51→20:52)
[2016-07-14] MEDS: ENOXAPARIN 40 MG/0.4 ML (LOVENOX) SYR SC SCH (08:52)
[2016-07-14] MEDS: CARVEDILOL 12.5 MG (COREG) TABLET PO SCH ×2 (08:52→20:52)
[2016-07-14] MEDS: ASPIRIN E.C. 81 MG (ECOTRIN) TAB PO SCH (08:52)
[2016-07-14] MEDS: inSUlin DETERMIR 1 UNIT/0.01 ML (LEVEMIR) CHARGE PER UNIT SQ SCH ×2 (09:01→20:56)
--- NOTE | 2016-07-14 10:31 | Physical Therapy Daily Note ---
PT Daily Note-Current Subjective Agrees to PT. reports her undergarment is wet. Would like to sit up in the chair. Transfers Functional [place] Measure 0=Not Assessed/NA 4=Minimal Assistance 1=Total Assistance 5=Supervision or Setup 2=Maximal Assistance 6=Modified [place] 3=Moderate Assistance 7=Complete IndependenceIRFPAI Quality Coding Scale 6 Independent with activity with or without an assistive device 5 Patient requires set up or clean up by helper. Patient completes activity by themselves 4 Supervision or touching assist (CGA). [place] provide cues , steadying assist 3 The helper provides less than half the effort to complete the activity 2 The helper provides more than half the effort to complete the activity 1 Dependent. The helper does all the effort to complete an activity 7 Patient refused to complete or attempt activity 9 The patient did not perform the activity before the current illness or injury 88 Not attempted due to Medical conditions or safety concerns Treatments Pt transferred sup to sit EOB with min assist. Sit to stand x 2 to doff and don undergarments. Min assist to stand and CGA to remain standing. Changed undergarment and cleansed pt skin while standing--CGA. Max assist checo care and undergarment placement. Pt needed to sit once to rest. Pt then performed SPT bed to chair with FWW with close CGA. Favors left LE with WB transfer but able to put weight through her toes. Up in chair post treatment with needs met. Assessment Current Status: Good Progress Pt seems more alert today and anxious to get out of bed. Pt follows cues well and is making good progress. Limited functional act tolerance persists, but as expected due to lengthy medical stay. PT Short Term Goals Short Term Goals Time Frame: Jul 26, 2016 Transfers (B,C,W/C) (FIM): 4 Gait (FIM): 4 Distance (FIM): 3=150 ft Gait Assistive Device: FWW Stairs (FIM): 2 # of Steps: 4 Stairs Level of Assist: 4 PT Telegraph Office Manager Goals Detention Goals PT Telegraph Office Manager Goals Time Frame: Aug 09, 2016 Transfers (B,C,W/C) (FIM): 6 Sit to Lying (QC): 6 Lying-Sitting on Side/Bed(QC): 6 Sit to Stand (QC): 6 Rollin (assist to place legs and sequence as well as roll) Roll Left to Right (QC): 6 Chair/[id number] Xfer(QC): 6 Car Transfer (QC): 5 Does the Patient Walk: Yes Gait (FIM): 6 Gait distance (FIM): 3=150 ft Walk 10 feet (QC): 6 Walk 10ft-Uneven Surface(QC): 6 Walk 50ft with 2 Turns (QC): 6 Walk 150 ft (QC): 6 Gait Level of Assist: 6 Gait Assistive Device: FWW Stairs (FIM): 5 # of Steps: 8 1 Step (curb) (QC): 5 4 Steps (QC): 5 12 Steps (QC): 88 Stairs Level Of Assist: 5 Picking up an Object (QC): 5 PT Plan Problem List Problem List: Activity Tolerance, Functional Strength, Safety, Balance, Gait, Transfer, Bed Mobility Treatment/Plan Treatment Plan: Continue Plan of Care Treatment Plan: Bed Mobility, Education, Functional Activity Tavares, Functional Strength, Group Therapy (socialization, education), Gait, Safety, Therapeutic Exercise, Transfers Treatment Duration: Aug 09, 2016 Visits Per Week: 10-15 Minutes/Day (M-F): 60-90 Minutes/Day (Sat/Marcano): prn Safety Risks/Education Patient Education: Transfer Techniques, Safety Issues Teaching Recipient: Patient Teaching Methods: Discussion Response to Teaching: Verbalize Understanding, Reinforcement Needed Time/GCodes Time In: 1010 Time Out: 1025 Total Billed Treatment Time: 15 Total Billed Treatment visit FA 15 DALIA PÉREZ PT Jul 14, 2016 10:31
[2016-07-14] MEDS: LORazepam 0.5 MG (ATIVAN) TABLET PEG PRN (10:48)
[2016-07-14 18:46] VITALS: BP 123/83
[2016-07-14] MEDS: CYCLOBENZAPRINE 10 MG (FLEXERIL) TAB PO PRN (20:52)
[2016-07-15] MEDS: HYDROcodone/APAP 7.5 MG/325 MG (LORTAB, LORCET PLUS) TABLET PO PRN ×4 (00:15→18:28)
[2016-07-15 04:19] VITALS: BP 101/72
[2016-07-15] MEDS: inSUlin (REGULAR) HUMAN 1 UNIT/0.01 ML (CHARGE PER UNIT) SC SCH ×4 (06:18→20:59)
[2016-07-15] MEDS: RT-ALBUTEROL/IPRATROPIUM 3 ML (DUONEB) VIAL INH SCH ×4 (07:29→19:50)
[2016-07-15] MEDS: inSUlin DETERMIR 1 UNIT/0.01 ML (LEVEMIR) CHARGE PER UNIT SQ SCH ×2 (09:25→20:59)
[2016-07-15] MEDS: ENOXAPARIN 40 MG/0.4 ML (LOVENOX) SYR SC SCH (09:25)
[2016-07-15] MEDS: NYSTATIN ORAL SUSP 5 ML UDC PO SCH ×4 (09:25→20:04)
[2016-07-15] MEDS: ASPIRIN E.C. 81 MG (ECOTRIN) TAB PO SCH (09:26)
[2016-07-15] MEDS: CARVEDILOL 12.5 MG (COREG) TABLET PO SCH ×2 (09:26→20:04)
--- NOTE | 2016-07-15 09:34 | Individualized Plan of Care ---
Individualized Plan of Care Rehab Nursing IPOC Order Admission Date Jul 12, 2016 at 15:14 Current Orders Orders-RAHEEM SHAW MD Patient Visit (07/13/16 ) Dysphagia Evaluation Std (07/13/16 ) Patient Visit (07/13/16 ) Functional Activities, Ea 15 (07/13/16 ) Exercise Therap, Ea 15 Min (07/13/16 ) Tube Feeding (07/13/16 Dinner) Nursing Communication (Pt.Care (07/13/16 22:26) Patient Visit (07/14/16 ) Functional Activities, Ea 15 (07/14/16 ) PT IPOC Problem List: Activity Tolerance, Functional Strength, Safety, Balance, Gait, Transfer, Bed Mobility Treatment Plan: Continue Plan of Care Bed Mobility, Education, Functional Activity Tavares, Functional Strength, Group Therapy (socialization, education), Gait, Safety, Therapeutic Exercise, Transfers Treatment Duration: Aug 09, 2016 Visits Per Week: 10-15 Minutes/Day (M-F): 60-90 Minutes/Day (Sat/Marcano): prn OT IPOC Problems: Decreased Activ Tolerance, Decreased Safety Aware, Decreased UE Strength, Dependent Transfers, Impaired Bed Mobility, Impaired Funct Balance, Impaired Self-Care Skills OT Problems Pt would benefit from skilled OT to increase her independence in basic self care to allow her to return to son's home and decrease caregiver bruden Plan of Care: ADL Retraining, Caregiver Training, Functional Mobility, Group Exercise/Act as Ind (education, exercise, activity tolerance, functional activities, safety), UE Funct Exercise/Act, UE Neuromus Re-Ed/Coord Treatment Duration: Aug 09, 2016 Visits Per Week: 10-11 Minutes/Day (M-F): 75-90 Minutes/Day (Sat/Marcano): PRN ST IPOC Speech Therapy Treatment Plan: Continue Plan of Care Treatment Duration: Sep 07, 2016 Visits Per Week: Four to Five Minutes/Day (M-F): 30 Physician IPOC Medical Issues being managed closely and that require the 24 hour availability of a physician:dysphagia NPO status on tube feeds DM pain management Medical Issues: DVT Prophylaxis, Falls Precautions, Fluid/Electrolyte/ Nutrition Balance, Infection Protection, Pain Management, Swallowing Precautions , Wound Care, Other (List) (as per above) Brief Synthesis of Preadmission Screen, Post-Admission Evaluation, and Therapy Evaluations:40 yo female who had been Independent who developed esophageaal perforation requiring repair at OSH with hx of esophageal varices and poly substance abuse who had a long stay for treatment of these conditions who then fell and sustained a left femur frx treated at the same [facility] requiring repair with ortho there Now referred to IRU here for ongoning therapies,She is a recent and plans are for her to go home with her child upon completion of therapies here. Medical Prognosis: good Anticipated Length of Stay: 3-4 weeks Rehab Goals Modified Independent to supervision for adls AND MOBILITY skills and [place] or family training for tube feed administration Anticipated discharge destinat: Home with family and [facility] RAHEEM SHAW MD Jul 15, 2016 09:34
[2016-07-15] MEDS: LORazepam 0.5 MG (ATIVAN) TABLET PEG PRN ×2 (13:20→18:28)
[2016-07-15 18:10] VITALS: BP 90/59
[2016-07-15] MEDS: CYCLOBENZAPRINE 10 MG (FLEXERIL) TAB PO PRN (19:56)
[2016-07-16 06:00] VITALS: BP 99/68
[2016-07-16] MEDS: inSUlin (REGULAR) HUMAN 1 UNIT/0.01 ML (CHARGE PER UNIT) SC SCH ×4 (06:47→19:54)
[2016-07-16] MEDS: RT-ALBUTEROL/IPRATROPIUM 3 ML (DUONEB) VIAL INH SCH ×4 (07:27→19:46)
--- NOTE | 2016-07-16 08:14 | Progress Note (SOAP) ---
Subjective Subjective/Events-last exam patient not having any complaints. Patient has trach, feeding tube, and needs physical therapy and occupational therapy Objective Exam Vital Signs Date Time Temp Pulse Resp B/P Pulse Ox O2 Delivery O2 Flow Rate FiO2 07/16/16 07:27 91 6.00 28 07/16/16 06:00 96.7 93 14 99/68 98 Trach Collar 6.00 07/15/16 21:00 Trach Collar 6.00 07/15/16 19:52 97 6.00 28 07/15/16 18:10 97.6 102 20 90/59 99 Trach Collar 6.00 07/15/16 14:51 97 6.00 28 07/15/16 10:56 98 6.00 28 07/15/16 09:00 Trach Collar 4.00 I & O 07/16/16 06:59 Intake Total 1000 ml Balance 1000 ml Capillary Refill : General Appearance: No Apparent Distress WD/WN HEENT: Other (has trach) Neck: Full Range of Motion Normal Inspection Respiratory: Chest Non Tender No Accessory Muscle Use No Respiratory Distress Cardiovascular: Regular Rate, Rhythm Gastrointestinal: soft Results Lab Laboratory Tests 07/15/16 11:37: Glucometer 365H 07/15/16 15:57: Glucometer 328H 07/15/16 20:47: Glucometer 250H 07/16/16 06:00: Glucometer 253H Assessment/Plan Assessment/Plan Assess & Plan/Chief Complaint hip fracture. Perforated esophageal ulcer . Hypertension diabetes. Previous suicide attempts. Depression. . 07/16/16. Hip fracture. Perforated esophageal ulcer. Hypertension. Diabetes. Previous suicide attempts. Depression Diagnosis/Problems: Clinical Quality Measures DVT/VTE Risk/Contraindication: Risk Factor Score Per Nursin RFS Level Per Nursing on Admit: 3=High RANDI RIBEIRO DO Jul 16, 2016 08:14
[2016-07-16] MEDS: HYDROcodone/APAP 7.5 MG/325 MG (LORTAB, LORCET PLUS) TABLET PO PRN ×4 (08:39→22:12)
[2016-07-16] MEDS: NYSTATIN ORAL SUSP 5 ML UDC PO SCH ×4 (08:39→20:03)
[2016-07-16] MEDS: CARVEDILOL 12.5 MG (COREG) TABLET PO SCH ×2 (08:39→20:04)
[2016-07-16] MEDS: inSUlin DETERMIR 1 UNIT/0.01 ML (LEVEMIR) CHARGE PER UNIT SQ SCH ×2 (08:39→20:04)
[2016-07-16] MEDS: LORazepam 0.5 MG (ATIVAN) TABLET PEG PRN ×4 (08:39→22:12)
[2016-07-16] MEDS: ENOXAPARIN 40 MG/0.4 ML (LOVENOX) SYR SC SCH (08:39)
[2016-07-16] MEDS: ASPIRIN E.C. 81 MG (ECOTRIN) TAB PO SCH (08:39)
--- NOTE | 2016-07-16 10:24 | Occupational Ther Daily Note ---
OT Current Status-Daily Note Subjective Pt. reports 7/10 pain in right hip. Nursing notified and gives pt. medication. Appearance Pt. is in bed. Is able to communicate by mouthing words, or writing them down. Agrees to treatment. Mental Status/Objective Patient Orientation: Person, Place, Time, Situation Functional [place] Measure 0=Not Assessed/NA 4=Minimal Assistance 1=Total Assistance 5=Supervision or Setup 2=Maximal Assistance 6=Modified [place] 3=Moderate Assistance 7=Complete [place] Attachments: IV, NG Tube ADL-Treatment Functional [place] Measure 0=Not Assessed/NA 4=Minimal Assistance 1=Total Assistance 5=Supervision or Setup 2=Maximal Assistance 6=Modified [place] 3=Moderate Assistance 7=Complete IndependenceIRFPAI Quality Coding Scale 6 Independent with activity with or without an assistive device 5 Patient requires set up or clean up by helper. Patient completes activity by themselves 4 Supervision or touching assist (CGA). [place] provide cues , steadying assist 3 The helper provides less than half the effort to complete the activity 2 The helper provides more than half the effort to complete the activity 1 Dependent. The helper does all the effort to complete an activity 7 Patient refused to complete or attempt activity 9 The patient did not perform the activity before the current illness or injury 88 Not attempted due to Medical conditions or safety concerns Grooming (FIM): 5 (Pt. is able to brush hair seated on side of bed. Declines brushing out her mouth.) Bathing (FIM): 4 (Pt. requires min assist in stance to wash checo areas. Pt. issued therapy sponge to wash bilateral LE.) Lower Body Dressing (FIM): 4 (Pt. able to doff/don right sock. Required use of adaptive equipment to doff/don left sock.) Lower Body Dressing (QC): 4 On/Off Footwear (QC): 4 Toileting (FIM): 3 (Pt. was incontinent of urine in brief. Required assist to wash self. Max assist to re-apply brief.) Transfers (B, C, W/C) (FIM): 4 (Min assist for supine-sit, and sit-stand.) Other Treatment Pt. agrees to treatment. Transfers supine-sit with Min assist. Able to balance on side of bed while performing spongebath. Does not have street clothing available. Issued adaptive equipment and educated on how to use it. Tolerates treatment well. Does report pain in right hip, and has pain medication for it. Pt. requests mouth wash but this is not available. OT offers to assist her to brush mouth with toothbrush and paste, as she has no teeth. Pt. declines. Education OT Patient Education: Correct positioning, Modified ADL techniques, Progress toward Goal/Update tx plan, Purpose of tx/functional activities, Reviewed precautions, Rehab process, Transfer techniques Teaching Recipient: Patient Teaching Methods: Demonstration, Discussion Response to Teaching: Verbalize Understanding, Return Demonstration OT Short Term Goals Short Term Goals Time Frame: Jul 20, 2016 Lower Body Dressing(FIM): 5 Transfers (B,C,W/C) (FIM): 4 Toilet/Commode Transfer(FIM): 4 Additional Short Term Goals: 2-Verbalize Understanding, 3-ImproveStrength/Tavares 1=Demonstrate adherence to instructed precautions during ADL tasks. 2=Patient will verbalize/demonstrate understanding of assistive devices/ modifications for ADL. 3=Patient will improve strength/tolerance for activity to enable patient to perform ADL's. OT Channel Development Manager Goals Care Home Goals Time Frame: Aug 09, 2016 Eating (FIM): 5 Eating (QC): 5 Oral Hygiene (QC): 6 Grooming(FIM): 6 Bathing(FIM): 5 Shower/Bathe Self (QC): 5 Upper Body Dressing(FIM): 6 Upper Body Dressing (QC): 6 Lower Body Dressing(FIM): 6 Lower Body Dressing (QC): 6 On/Off Footwear (QC): 6 Toileting(FIM): 6 Toileting Hygiene (QC): 6 Toilet/Commode Transfer(FIM): 6 Toilet/Commode Transfer (QC): 6 Shower Transfer(FIM): 6 Improve bilat UE strength to 5/5 to help with transfers and ADLs Additional Goals: 2-Verbalize Understanding, 3-ImproveStrength/Tavares 1=Demonstrate adherence to instructed precautions during ADL tasks. 2=Patient will verbalize/demonstrate understanding of assistive devices/ modifications for ADL. 3=Patient will improve strength/tolerance for activity to enable patient to perform ADL's. OT Education/Plan Problem List/Assessment Assessment: Decreased Activ Tolerance, Decreased UE Strength, Dependent Transfers, Impaired Bed Mobility, Impaired Funct Balance, Impaired I ADL's, Impaired Self-Care Skills Pt would benefit from skilled OT to increase her independence in basic self care to allow her to return to son's home and decrease caregiver bruden Discharge Recommendations Plan/Recommendations: Continue POC Therapy D/C Recommendations: Home w/ Family Support, Occupational Therapy Home Care, Scheduled Assistance Treatment Plan/Plan of Care Treatment,Training & Education: Yes Patient would benefit from OT for education, treatment and training to promote independence in ADL's, mobility, safety and/or upper extremity function for ADL' s. Plan of Care: ADL Retraining, Caregiver Training, Functional Mobility, Group Exercise/Act as Ind (education, exercise, activity tolerance, functional activities, safety), UE Funct Exercise/Act, UE Neuromus Re-Ed/Coord Treatment Duration: Aug 09, 2016 Visits Per Week: 10-11 Minutes/Day (M-F): 75-90 Minutes/Day (Sat/Marcano): PRN Agreement: Yes Rehab Potential: Fair Time/GCodes Start Time: 08:15 Stop Time: 09:00 Total Time Billed (hr/min): 45 Billed Treatment Time 1, ADL x 3 CORINA TREADWELL OT Jul 16, 2016 10:23
--- NOTE | 2016-07-16 11:56 | Physical Therapy Daily Note ---
PT Daily Note-Current Subjective Pt is supine in bed upon arrival. Pt reports feeling tired and weak. Pt reports pain of 7/10 at L hip incision site and pain is achy and seems to stretch and pull as EX occurs. Pt agrees to PT. Pain Numeric Pain Scale: 7 Location: Incisional, Left Location Body Site: Hip Pain Description: Ache, Tightness Mental Status Patient Orientation: Person, Place, Time, Situation Attachments: PEG Tube Pt has Trach. w/O2. Transfers Functional [place] Measure 0=Not Assessed/NA 4=Minimal Assistance 1=Total Assistance 5=Supervision or Setup 2=Maximal Assistance 6=Modified [place] 3=Moderate Assistance 7=Complete IndependenceIRFPAI Quality Coding Scale 6 Independent with activity with or without an assistive device 5 Patient requires set up or clean up by helper. Patient completes activity by themselves 4 Supervision or touching assist (CGA). [place] provide cues , steadying assist 3 The helper provides less than half the effort to complete the activity 2 The helper provides more than half the effort to complete the activity 1 Dependent. The helper does all the effort to complete an activity 7 Patient refused to complete or attempt activity 9 The patient did not perform the activity before the current illness or injury 88 Not attempted due to Medical conditions or safety concerns Transfers (B, C, W/C) (FIM): 3 Scootin Rollin Roll Left to Right (QC): 5 Supine to/from Sit: 5 Sit to/from Stand: 3 Sit to Lying (QC): 4 Sit to Stand (QC): 3 Chair/Sum-nl-Fludy Xfer(QC): 4 Bed to/from Chair: 4 Weight Bearing Weight Bearing Restriction: Weight Bearing/Tolerated Location Restriction: L LE Wheelchair Training Does the Pt Use a Wheelchair?: Yes Wheelchair (FIM): 4 Wheelchair Distance: 0=368-25 ft Distance: 60' Wheelchair Level of Assist: 4 Wheel 50 ft with 2 turns (QC): 4 Type of Wheelchair: Manual Pt has difficulty and needs assistance with distance from room to Therapy Gym especially with managing feeding tube while propelling W/C. Exercises Seated Therapy Exercises: Ankle pumps, Sit to stand (only 1 before pt reports feeling to weak and not able to continue), Long arc quads, Hip flexion, Kicking activity Seated Reps: 15 NuStep Minutes: 6 NuStep Workload: 4 Treatments Pt transfers from supine to EOB using bed rails at SBA then EOB to standing at Mod A. Pt held on to PT's arms for SPT to W/C. Pt propelled W/C while PT managed feeding tubing to Therapy Gym. Pt then SPT to NuStep for 6m at Workload 4. Pt reported discomfort while using NuStep so discontinued and SPT back to W/C at Mod A. Pt completed seated EX in W/C with one rest break during due to fatigue. Pt then attempted sit to stand at //bars. After one attempt, pt reported needing to sit back in W/C due to weakness and pain. Pt asked to return to room and ask nursing for pain med. Nursing notified next pain med is 12:40 (a little more than an hour away). Pt asked to return to bed to rest at end of tx. Pt SPT to EOB at Mod A then EOB to supine at Min A to assist for positioning. Pt was left with all needs met at end of tx and RT was arriving. Assessment Current Status: Fair Progress Pt continues to have a low activity tolerance and is weak especially with sit to stand transfers. Pt continues to report pain that limits participation in tx. Pt was asked to try ambulation in //bars with PT's assistance but pt refused due to weakness and pain. PT Short Term Goals Short Term Goals Time Frame: Jul 26, 2016 Transfers (B,C,W/C) (FIM): 4 Gait (FIM): 4 Distance (FIM): 3=150 ft Gait Assistive Device: FWW Stairs (FIM): 2 # of Steps: 4 Stairs Level of Assist: 4 PT Mcc Goals Sourcing Coordinator Goals PT Mcc Goals Time Frame: Aug 09, 2016 Transfers (B,C,W/C) (FIM): 6 Sit to Lying (QC): 6 Lying-Sitting on Side/Bed(QC): 6 Sit to Stand (QC): 6 Rollin (assist to place legs and sequence as well as roll) Roll Left to Right (QC): 6 Chair/Dbq-ye-Yqqva Xfer(QC): 6 Car Transfer (QC): 5 Does the Patient Walk: Yes Gait (FIM): 6 Gait distance (FIM): 3=150 ft Walk 10 feet (QC): 6 Walk 10ft-Uneven Surface(QC): 6 Walk 50ft with 2 Turns (QC): 6 Walk 150 ft (QC): 6 Gait Level of Assist: 6 Gait Assistive Device: FWW Stairs (FIM): 5 # of Steps: 8 1 Step (curb) (QC): 5 4 Steps (QC): 5 12 Steps (QC): 88 Stairs Level Of Assist: 5 Picking up an Object (QC): 5 PT Plan Problem List Problem List: Activity Tolerance, Functional Strength, Safety, Balance, Gait, Transfer, Bed Mobility Treatment/Plan Treatment Plan: Continue Plan of Care Treatment Plan: Bed Mobility, Education, Functional Activity Tavares, Functional Strength, Group Therapy (socialization, education), Gait, Safety, Therapeutic Exercise, Transfers Treatment Duration: Aug 09, 2016 Visits Per Week: 10-15 Minutes/Day (M-F): 60-90 Minutes/Day (Sat/Marcano): prn Safety Risks/Education Patient Education: Transfer Techniques, Correct Positioning, W/C Management, Safety Issues Teaching Recipient: Patient Teaching Methods: Discussion Response to Teaching: Reinforcement Needed Time/GCodes Time In: 1030 Time Out: 1130 Total Billed Treatment Time: 60 Total Billed Treatment visit, FA X2 (30m) & EX X2 (30m) PAULINE DE LA PAZ EMBEDDED SOFTWARE MANAGER Jul 16, 2016 11:56
[2016-07-16] MEDS ORDERED: inSUlin DETERMIR 1 UNIT/0.01 ML (LEVEMIR) CHARGE PER UNIT SQ ONE (12:30)
--- NOTE | 2016-07-16 12:31 | Physician Query-General Query ---
Physician Query-General Query to Physician: Please specify the type/specific location of the lt femur fx PHYSICIAN RESPONSE: Based on the clinical findings in the record, please respond to the query above on this document as an addendum. Possible, probable, or questionable diagnosis can be coded for INPATIENTS ONLY. Physician Response: Physician Response See progress note 07/17/16 If you have questions please contact: Billet Header: Linda Ext: [phone] Thank you for your time and cooperation. Clinical Utility Bag Assembler/Billet Header This is a permanent part of the medical record LINDA POWERS Jul 16, 2016 12:31 RAHEEM SHAW MD Jul 17, 2016 11:44
--- NOTE | 2016-07-16 15:11 | ST Cognitive Linguistic Eval ---
Speech Evaluation-General Medical Diagnosis left hip fracture, ARDS, ARF Onset Date: May 04, 2016 Therapy Diagnosis Therapy Diagnosis: Questionable Cognitive Impairment Precautions Precautions: Aspiration Precautions/Isolations: Aspiration, Fall Prevention, Standard Precautions, Pressure Ulcer Referral Referring Physician: Dr. Giuseppe Youngblood Reason for Referral: Evaluation/Treatment Cognitive Screen Medical History Pertinent Medical History: DM, Fractures, Smoking Reviewed History: Yes Social History Current Living Status: Speech PLF-Current Status Prior Level of Function The patient denied cognitive challenges prior to hospitalization. Subjective The patient was recently admitted to [facility] with a left hip fracture and previously documented acute respiratory failure. The patient does have a tracheostomy tube and PEG tube in place. The patient greeted the clinician appropriately and agreed to participate in the cognitive screen on this date. Language Eval: Auditory Comprehends Simple Yes/No Ques: Functional Indent/Objects Multiple [place]: Functional Ident/Pics in Multiple [place]: Functional Follows 1-Step Commands: Functional Follows Complex Directions: Functional Follows General Conversations: Functional The patient did transcribe a majority of responses on paper with a pen. Language Eval: Verbal Language Completes Spontaneous Greeting: Functional Produces Auto, Serial Info: Functional Imitates Simple Words/Phrases: Functional Word Finding: Functional Requests Basic Needs: Functional States Basic Personal Info: Functional Expresses Complex Ideas: Functional Digital occlusion of the trach site was attempted by the patient, however, a severely strained vocal quality was produced. The patient does not wish to attempt Passy Mykel Speaking Valve trials, as she states it is difficult for her to breath with the valve in place. The clinician will continue to focus on vocalizations, including resonant voice exercises in attempts to reduce laryngeal tension. Language Evaluation: Writing Writes to Simple Dictation: Functional Writes Personal Information: Functional Writes Short Phrases: Functional Cognitive Patient Orientation The patient was alert and oriented to location, date, day of week, and year. Objective Cognitive Domain Attention: WNL Memory: WNL Problem Solving: Functional Objective Impression The patient demonstrated cognitive linguistic skills grossly within normal limits for completion of ADL's. The patient did demonstrated aphonia upon digital occlusion of tracheostomy tube; due to this finding, the speech pathologist will continue voicing trials in the future. Communication/Social Cognition Comprehension: 6 Expression: 5 Social Interaction: 5 Problem Solvin Memory: 5 Speech Patient Assess Expression of Ideas/Wants: Expression (4) Understanding [place] Content: Understands (4) Brief Interview-Mental Status: Yes Repetition of Three Words: Three (3) Temporal Orientation: Year: Correct (3) Temporal Orientation: Month: Accurate within 5 days(2) Temporal Orientation: Day: Correct (1) Recall : Wear: Yes, no cue required (2) Recall : Color: Yes, no cue required (2) Recall : Bed: Yes, no cue required (2) Speech Short Term Goals Short Term Goals Short Term Goals 1. The patient will tolerate trials of the least restrictive diet without signs/ symptoms of aspiration or laryngeal penetration. 2. The patient will participate in a video swallow to definitely rule out aspiration. 3. The patient will demonstrate swallowing strategies, independently. 4. The patient will demonstrate base of tongue, pharyngeal, and laryngeal elevation exercises with 80% accuracy and mild clinician cueing. 5. The patient will demonstrate resonant voice techniques to aid in vocalizations with 80% accuracy and moderate clinician verbal cueing and direct modeling. Time Frame-STG: Two Weeks Speech Usp Goals Confidential Investigator Goals 1. The patient will tolerate the least restrictive diet without signs/symptoms of aspiration or laryngeal penetration. 2. The patient will demonstrate reduced laryngeal tension for increase use of audible voice. Time Frame: Eight Weeks Comprehension: 6 Expression: 6 Social Interaction: 6 Problem Solvin Memory: 6 Speech-Plan Treatment Plan Speech Therapy Treatment Plan: Continue Plan of Care Treatment Duration: Sep 07, 2016 # of days/week Four to Five Visits Per Week: Four to Five Minutes/Day (M-F): 30 Rehab Potential: Fair Safety Risks/Education Teaching Recipient: Patient Teaching Methods: Discussion Response to Teaching: Verbalize Understanding Education Topics Provided: Plan of Care Time Speech Therapy Time In: 09:30 Speech Therapy Time Out: 10:00 Total Billed Time: 30 Billed Treatment Time David KIMBER [place]SMEL [place] Jul 16, 2016 15:11
--- NOTE | 2016-07-16 15:12 | Therapy Group Daily Note ---
Therapy Daily Group Note Patient Education Topic Exercises, Other List Below (education on transfers and equipment) Exercises LE Seated Exercise, UE Exercise DALIA ENGLE Jul 16, 2016 15:11
--- NOTE | 2016-07-16 15:16 | Therapy Group Daily Note ---
Therapy Daily Group Note Patient Education Topic Exercises, Other List Below (education on transfers and equipment ) Exercises LE Seated Exercise, UE Exercise Other/Notes Pt propelled self to therapy, without assistance. Pt participated socially by introducing self, currently living and to describe her biggest fear. Pt held a conversation by describing how she would manage her fears. UE/LE seated exercises were completed, education on benefits of LE exercises to decrease blood clots and increase circulation. UE/LE light resistance theraband completed while seated to promote safe transfers. Transfer techniques and equipment used to assist with transfers were discussed and examples were given on how to properly transfer from surface to surface. Pt propelled back to room. Call light in hand. All needs met. Start Time: 13:00 Stop Time: 14:20 Total Billed Treatment Time: 80 Total Billed Treatment 1-GRP DALIA ENGLE Jul 16, 2016 15:16
[2016-07-16 18:50] VITALS: BP 103/69
[2016-07-16] MEDS: CYCLOBENZAPRINE 10 MG (FLEXERIL) TAB PO PRN (20:04)
--- NOTE | 2016-07-16 20:34 | PM & R (SOAP) Progress Note ---
Subjective Subjective/Events-last exam Patient was seen in her room this evening Patient anxous to return home Reassured Patient SBA for transfers Remains on 02 by Trach collar Objective Exam Last Set of Vital Signs Vital Signs Date Time Temp Pulse Resp B/P Pulse Ox O2 Delivery O2 Flow Rate FiO2 07/16/16 19:46 98 6.00 28 07/16/16 18:50 98.2 101 22 103/69 Trach Collar Capillary Refill : I&O Intake and Output 07/16/16 00:00 Intake Total 1901 ml Balance 1901 ml Intake Oral 0 ml Tube Feeding 1101 ml Other 800 ml # Voids 14 # Urine Diapers 6 # Bowel Movements 2 General: Alert, Oriented X3, Cooperative, No Acute Distress HEENT: Atraumatic, PERRLA, EOMI, Mucous Memb Moist/[place] Neck: Other (trach) Lungs: Clear to Auscultation Heart: Regular Rate Abdomen: Normal Bowel Sounds, Soft, No Tenderness, Other (Peg tube in place) Extremities: Other (trace edema) Neuro: Other (Weakness both lower legs left >rt) Results Lab Laboratory Tests 07/13/16 21:06: Glucometer 250H 07/14/16 06:09: Glucometer 73 07/14/16 09:00: Glucometer 145H 07/14/16 10:53: Glucometer 197H 07/14/16 16:32: Glucometer 302H 07/14/16 20:57: Glucometer 228H 07/15/16 06:13: Glucometer 291H 07/15/16 11:37: Glucometer 365H 07/15/16 15:57: Glucometer 328H 07/15/16 20:47: Glucometer 250H 07/16/16 06:00: Glucometer 253H 07/16/16 11:21: Glucometer 361H 07/16/16 16:39: Glucometer 348H 07/16/16 19:52: Glucometer 154H Assessment/Plan Assessment Left hip frx s/p repair S/P trach for pneumonia and ards S/P espohageal rupture and repair OSH-with hx of espohageal varices NPO status on tube feeds HX of substance abuse and etoh use Plan Continue PT/OT/ST F/U with Lucy and check CXR-done Trial of capping parul RT F/U Appreciate Dr Thorpe notes and orders Solid Plasterer has made recs re tube feeds Discussed with RN last week Team Conference 07/18/16 RAHEEM SHAW MD Jul 16, 2016 20:34
[2016-07-17] MEDS: inSUlin (REGULAR) HUMAN 1 UNIT/0.01 ML (CHARGE PER UNIT) SC SCH ×4 (06:00→20:33)
[2016-07-17 06:31] VITALS: BP 116/75
[2016-07-17] MEDS: RT-ALBUTEROL/IPRATROPIUM 3 ML (DUONEB) VIAL INH SCH ×4 (07:16→20:06)
[2016-07-17] MEDS: NYSTATIN ORAL SUSP 5 ML UDC PO SCH ×4 (08:08→20:33)
[2016-07-17] MEDS: ASPIRIN E.C. 81 MG (ECOTRIN) TAB PO SCH (08:08)
[2016-07-17] MEDS: ENOXAPARIN 40 MG/0.4 ML (LOVENOX) SYR SC SCH (08:08)
[2016-07-17] MEDS: CARVEDILOL 12.5 MG (COREG) TABLET PO SCH ×2 (08:09→20:33)
[2016-07-17] MEDS: inSUlin DETERMIR 1 UNIT/0.01 ML (LEVEMIR) CHARGE PER UNIT SQ SCH ×2 (08:09→20:33)
[2016-07-17] MEDS: HYDROcodone/APAP 7.5 MG/325 MG (LORTAB, LORCET PLUS) TABLET PO PRN ×3 (08:11→20:32)
--- NOTE | 2016-07-17 08:20 | Progress Note (SOAP) ---
Subjective Subjective/Events-last exam HIP FRACTURE. Trach. PICC l PEG tube.. Patient feeling okay and doing okay today Objective Exam Vital Signs Date Time Temp Pulse Resp B/P Pulse Ox O2 Delivery O2 Flow Rate FiO2 07/17/16 07:20 90 6.00 28 07/17/16 06:31 96.9 84 16 116/75 96 Trach Collar 07/16/16 20:50 Trach Collar 4.00 07/16/16 19:46 98 6.00 28 07/16/16 18:50 98.2 101 22 103/69 96 Trach Collar 6.00 07/16/16 15:42 98 6.00 28 07/16/16 11:23 97 6.00 28 07/16/16 09:00 Trach Collar 4.00 I & O 07/17/16 07:00 Intake Total 2000 ml Balance 2000 ml Capillary Refill : General Appearance: No Apparent Distress WD/WN HEENT: Normal ENT Inspection Neck: Normal Inspection Respiratory: Chest Non Tender No Accessory Muscle Use No Respiratory Distress Cardiovascular: Regular Rate, Rhythm Gastrointestinal: non tender soft Results Lab Laboratory Tests 07/16/16 11:21: Glucometer 361H 07/16/16 16:39: Glucometer 348H 07/16/16 19:52: Glucometer 154H 07/17/16 06:27: Glucometer 151H Assessment/Plan Assessment/Plan Assess & Plan/Chief Complaint hip fracture. Perforated esophageal ulcer . Hypertension diabetes. Previous suicide attempts. Depression. . 07/16/16. Hip fracture. Perforated esophageal ulcer. Hypertension. Diabetes. Previous suicide attempts. Depression. . 07/17/16. Hip fracture. Hypertension. Diabetes. Depression Hypertension. Diabetes.. Patient doing okay today Diagnosis/Problems: Clinical Quality Measures DVT/VTE Risk/Contraindication: Risk Factor Score Per Nursin RFS Level Per Nursing on Admit: 3=High RANDI RIBEIRO DO Jul 17, 2016 08:20
--- NOTE | 2016-07-17 08:31 | Pulmonary Progress Note ---
Subjective Subjective/Events-last exam Pt has not been tolerating speaking valve. Exam Exam Vital Signs Date Time Temp Pulse Resp B/P Pulse Ox O2 Delivery O2 Flow Rate FiO2 07/17/16 07:20 90 6.00 28 07/17/16 06:31 96.9 84 16 116/75 96 Trach Collar 07/16/16 20:50 Trach Collar 4.00 07/16/16 19:46 98 6.00 28 07/16/16 18:50 98.2 101 22 103/69 96 Trach Collar 6.00 07/16/16 15:42 98 6.00 28 07/16/16 11:23 97 6.00 28 07/16/16 09:00 Trach Collar 4.00 I & O 07/17/16 07:00 Intake Total 2000 ml Balance 2000 ml General Appearance: No Apparent Distress WD/WN HEENT: Normal ENT Inspection Neck: Normal Inspection Respiratory: Chest Non Tender No Accessory Muscle Use No Respiratory Distress Cardiovascular: Regular Rate, Rhythm Gastrointestinal: non tender soft Assessment/Plan Assessment/Plan Tracheostomy s/p ARDS -Pt is not tolerating even having speaking valve -Will try again today Clinical Quality Measures DVT/VTE Risk/Contraindication: Risk Factor Score Per Nursin RFS Level Per Nursing on Admit: 3=High AUDELIA JUSTICE DO Jul 17, 2016 08:31
--- NOTE | 2016-07-17 10:23 | Physical Therapy Daily Note ---
PT Daily Note-Current Subjective Pt laying supine with nurse giving meds upon arrival. Pt reports tightness/ sore on L side especially at incision site. Pt agrees to PT. Dr Ayala arrives at start of tx and finds trach. valve needs changed and pt needs suctioned. asks for pt to remain in room until suctioned. Pain Location: Incisional, Left Location Body Site: Hip Pain Description: Tightness Mental Status Patient Orientation: Person, Place, Time, Situation Attachments: PEG Tube, Other-See Comments (Trach. w/speech valve) Transfers Functional [place] Measure 0=Not Assessed/NA 4=Minimal Assistance 1=Total Assistance 5=Supervision or Setup 2=Maximal Assistance 6=Modified [place] 3=Moderate Assistance 7=Complete IndependenceIRFPAI Quality Coding Scale 6 Independent with activity with or without an assistive device 5 Patient requires set up or clean up by helper. Patient completes activity by themselves 4 Supervision or touching assist (CGA). [place] provide cues , steadying assist 3 The helper provides less than half the effort to complete the activity 2 The helper provides more than half the effort to complete the activity 1 Dependent. The helper does all the effort to complete an activity 7 Patient refused to complete or attempt activity 9 The patient did not perform the activity before the current illness or injury 88 Not attempted due to Medical conditions or safety concerns Scootin Rollin Roll Left to Right (QC): 5 Supine to/from Sit: 5 Sit to/from Stand: 4 Sit to Lying (QC): 4 Sit to Stand (QC): 4 Chair/Doe-pg-Haibf Xfer(QC): 4 Bed to/from Chair: 4 Weight Bearing Weight Bearing Restriction: Full Weight Bearing Location Restriction: LE Bilateral Pt is FWB but is weak in BLE upon standing. Wheelchair Training Does the Pt Use a Wheelchair?: Yes Wheelchair (FIM): 3 Wheelchair Distance: 6=827-81 ft Distance: 125' Wheelchair Level of Assist: 4 Wheel 50 ft with 2 turns (QC): 4 Type of Wheelchair: Manual Pt needs assistance with managing feeding tubing. Pt needs VC for sequencing occasionally. Exercises Seated Therapy Exercises: Ankle pumps, Sit to stand (5 reps at //bars), Long arc quads, Hip flexion, Kicking activity Seated Reps: 15 (3 sets of 15 reps each) Treatments After receiving meds from nursing, pt transferred from supine to EOB at A then EOB to standing at SBA. Pt SPT to W/C for tx at [facility]-Min A. Dr Ayala arrived to see pt. advised pt needs trach. suctioned and new valve placed, ask to not leave room until suctioned. Pt completed 1 rep of seated Ex in W/C while waiting for RT to suction. PT's valve was replaced and pt was suctioned as well as speaking valve put on. Pt then propelled W/C to Therapy Gym for tx. Pt then completed 2 more reps of seated Ex with rest break in between. Pt then completed sit to stands at //bars. Pt reports feeling fatigued and propelled herself back to room to rest. Pt transferred from W/C to EOB using SPT at CGA-Min A. Pt transfers EOB to supine at Min A for positioning especially with BLE. Pt was left with all needs met at end of tx. Nursing notified that pt might need suctioned later this morning. Assessment Current Status: Good Progress Pt is making progress with strengthening and independence with transfers and W/ C mobility. Pt continues to have tightness in both ankles and pain when in DF. PT Short Term Goals Short Term Goals Time Frame: Jul 26, 2016 Transfers (B,C,W/C) (FIM): 4 Gait (FIM): 4 Distance (FIM): 3=150 ft Gait Assistive Device: FWW Wheelchair Distance: 60' Stairs (FIM): 2 # of Steps: 4 Stairs Level of Assist: 4 PT Char Belt Operator Goals Char Belt Operator Goals PT Char Belt Operator Goals Time Frame: Aug 09, 2016 Transfers (B,C,W/C) (FIM): 6 Sit to Lying (QC): 6 Lying-Sitting on Side/Bed(QC): 6 Sit to Stand (QC): 6 Rollin Roll Left to Right (QC): 6 Chair/Prz-ot-Vjrvy Xfer(QC): 6 Car Transfer (QC): 5 Does the Patient Walk: Yes Gait (FIM): 6 Gait distance (FIM): 3=150 ft Walk 10 feet (QC): 6 Walk 10ft-Uneven Surface(QC): 6 Walk 50ft with 2 Turns (QC): 6 Walk 150 ft (QC): 6 Gait Level of Assist: 6 Gait Assistive Device: FWW Stairs (FIM): 5 # of Steps: 8 1 Step (curb) (QC): 5 4 Steps (QC): 5 12 Steps (QC): 88 Stairs Level Of Assist: 5 Picking up an Object (QC): 5 PT Plan Problem List Problem List: Activity Tolerance, Functional Strength, Safety, Balance, Gait, Transfer Treatment/Plan Treatment Plan: Continue Plan of Care Treatment Plan: Bed Mobility, Education, Functional Activity Tavares, Functional Strength, Group Therapy (socialization, education), Gait, Safety, Therapeutic Exercise, Transfers Treatment Duration: Aug 09, 2016 Visits Per Week: 10-15 Minutes/Day (M-F): 60-90 Minutes/Day (Sat/Marcano): prn Safety Risks/Education Patient Education: Gait Training, Transfer Techniques, Correct Positioning, Disease Process, Safety Issues Teaching Recipient: Patient Teaching Methods: Discussion Response to Teaching: Verbalize Understanding Time/GCodes Time In: 815 Time Out: 915 Total Billed Treatment Time: 60 Total Billed Treatment visit, FA X2 (30m) & EX X2 (30m) PAULINE DE LA PAZ PTA Jul 17, 2016 10:23
[2016-07-17] MEDS: LORazepam 0.5 MG (ATIVAN) TABLET PEG PRN ×2 (11:25→20:32)
--- NOTE | 2016-07-17 11:43 | PM & R (SOAP) Progress Note ---
Subjective Subjective/Events-last exam Patient was seen in her room this AM Appreciate DR Hidalgo and Ila notes and orders Appreciate labs and accuchecks Patient min assist for transfers Objective Exam Last Set of Vital Signs Vital Signs Date Time Temp Pulse Resp B/P Pulse Ox O2 Delivery O2 Flow Rate FiO2 07/17/16 09:00 Trach Collar 4.00 07/17/16 07:20 90 28 07/17/16 06:31 96.9 84 16 116/75 Capillary Refill : I&O Intake and Output 07/17/16 00:00 Intake Total 1000 ml Balance 1000 ml Intake Oral 0 ml Tube Feeding 600 ml Other 400 ml # Voids 5 # Urine Diapers 8 # Bowel Movements 1 General: Alert, Oriented X3, Cooperative, No Acute Distress HEENT: Atraumatic, PERRLA, EOMI, Mucous Memb Moist/[place] Neck: Other (trach) Lungs: Clear to Auscultation Heart: Regular Rate Abdomen: Normal Bowel Sounds, Soft, No Tenderness, Other (Peg tube in place) Extremities: Other (trace edema) Neuro: Other (Weakness both lower legs left >rt) Results Lab Laboratory Tests 07/14/16 16:32: Glucometer 302H 07/14/16 20:57: Glucometer 228H 07/15/16 06:13: Glucometer 291H 07/15/16 11:37: Glucometer 365H 07/15/16 15:57: Glucometer 328H 07/15/16 20:47: Glucometer 250H 07/16/16 06:00: Glucometer 253H 07/16/16 11:21: Glucometer 361H 07/16/16 16:39: Glucometer 348H 07/16/16 19:52: Glucometer 154H 07/17/16 06:27: Glucometer 151H 07/17/16 11:05: Glucometer 363H Assessment/Plan Assessment Comminuted left intertrochanteric fracture s/p repair OSH ortho S/P trach for pneumonia and ards S/P espohageal rupture and repair OSH-with hx of esophageal varices NPO status on tube feeds HX of substance abuse and etoh use DM meds being adjusted Plan Continue PT/OT/ST F/U with Lucy and check CXR-done Trial of capping trach-ongoing RT F/U Appreciate Dr Thorpe notes and orders Wine [employer] Spir[employer] Clerk has made recs re tube feeds Discussed with RN last week Team Conference tomorrow Appreciate Dr Hidalgo notes and orders Trend Accuchecks and adjust meds as needed RAHEEM SHAW MD Jul 17, 2016 11:43
--- NOTE | 2016-07-17 11:54 | Occupational Ther Daily Note ---
OT Current Status-Daily Note Subjective Pt. does not report pain, but does report that she is tired at end of treatment. Appearance Pt. is in bed. Agrees to shower. Mental Status/Objective Patient Orientation: Person, Place, Time, Situation Functional [place] Measure 0=Not Assessed/NA 4=Minimal Assistance 1=Total Assistance 5=Supervision or Setup 2=Maximal Assistance 6=Modified [place] 3=Moderate Assistance 7=Complete [place] ADL-Treatment Functional [place] Measure 0=Not Assessed/NA 4=Minimal Assistance 1=Total Assistance 5=Supervision or Setup 2=Maximal Assistance 6=Modified [place] 3=Moderate Assistance 7=Complete IndependenceIRFPAI Quality Coding Scale 6 Independent with activity with or without an assistive device 5 Patient requires set up or clean up by helper. Patient completes activity by themselves 4 Supervision or touching assist (CGA). [place] provide cues , steadying assist 3 The helper provides less than half the effort to complete the activity 2 The helper provides more than half the effort to complete the activity 1 Dependent. The helper does all the effort to complete an activity 7 Patient refused to complete or attempt activity 9 The patient did not perform the activity before the current illness or injury 88 Not attempted due to Medical conditions or safety concerns Grooming (FIM): 5 (Pt. is able to comb hair with set up.) Bathing (FIM): 4 (Pt. requires min assist in stance to wash checo area. Also requires CGA at times while dynamically moving during sitting to wash.) Lower Body Dressing (FIM): 3 (Pt. is able to doff socks, but requires assist to don left sock. Is able to don right sock.) Transfers (B, C, W/C) (FIM): 4 (Pt. is able to transfer supine to and from sit with SBA. Requires min assist to stand and transfer to and from chair.) Shower Transfer(FIM): 4 Other Treatment Pt. showered this date. OT covered all bandaged areas per nursing with plastic and tape to keep dry. Transferred from bed to wheelchair with min assist, and then into shower with min assist. Pt. able to wash hair, but then asked OT to wash it again for her. Pt. able to reach all areas in shower, but did require steadying assist to wash checo area and with balance in stance. Transferred back to chair after shower, and then to bed with min assist. Pt. able to sit back up after rest break and complete 6 minutes on armbike to increase UE strength for daily tasks such as donning a shirt. Tolerated this well. Pt. requested to rest again. All needs met in room. Pt. comfortable. Will come back later to work with pt. again. Education OT Patient Education: Correct positioning, Exercise program, Modified ADL techniques, Progress toward Goal/Update tx plan, Purpose of tx/functional activities, Reviewed precautions, Rehab process, Transfer techniques Teaching Recipient: Patient Teaching Methods: Demonstration, Discussion Response to Teaching: Verbalize Understanding, Return Demonstration OT Short Term Goals Short Term Goals Time Frame: Jul 20, 2016 Lower Body Dressing(FIM): 5 Transfers (B,C,W/C) (FIM): 4 Toilet/Commode Transfer(FIM): 4 Additional Short Term Goals: 2-Verbalize Understanding, 3-ImproveStrength/Tavares 1=Demonstrate adherence to instructed precautions during ADL tasks. 2=Patient will verbalize/demonstrate understanding of assistive devices/ modifications for ADL. 3=Patient will improve strength/tolerance for activity to enable patient to perform ADL's. OT Usp Goals Materials Director Goals Time Frame: Aug 09, 2016 Eating (FIM): 5 Eating (QC): 5 Oral Hygiene (QC): 6 Grooming(FIM): 6 Bathing(FIM): 5 Shower/Bathe Self (QC): 5 Upper Body Dressing(FIM): 6 Upper Body Dressing (QC): 6 Lower Body Dressing(FIM): 6 Lower Body Dressing (QC): 6 On/Off Footwear (QC): 6 Toileting(FIM): 6 Toileting Hygiene (QC): 6 Toilet/Commode Transfer(FIM): 6 Toilet/Commode Transfer (QC): 6 Shower Transfer(FIM): 6 Comprehension(FIM): 6 Expression (FIM): 6 Social Interaction(FIM): 6 Problem Solving(FIM): 6 Memory(FIM): 6 Improve bilat UE strength to 5/5 to help with transfers and ADLs Additional Goals: 2-Verbalize Understanding, 3-ImproveStrength/Tavares 1=Demonstrate adherence to instructed precautions during ADL tasks. 2=Patient will verbalize/demonstrate understanding of assistive devices/ modifications for ADL. 3=Patient will improve strength/tolerance for activity to enable patient to perform ADL's. OT Education/Plan Problem List/Assessment Assessment: Decreased Activ Tolerance, Decreased UE Strength, Dependent Transfers, Impaired Funct Balance, Impaired I ADL's, Impaired Self-Care Skills Pt would benefit from skilled OT to increase her independence in basic self care to allow her to return to son's home and decrease caregiver bruden Discharge Recommendations Plan/Recommendations: Continue POC Therapy D/C Recommendations: Home w/ Family Support, Occupational Therapy Home Care, Scheduled Assistance Barriers to Progress weakness, trach, feeding tube. Treatment Plan/Plan of Care Treatment,Training & Education: Yes Patient would benefit from OT for education, treatment and training to promote independence in ADL's, mobility, safety and/or upper extremity function for ADL' s. Plan of Care: ADL Retraining, Caregiver Training, Functional Mobility, Group Exercise/Act as Ind (education, exercise, activity tolerance, functional activities, safety), UE Funct Exercise/Act, UE Neuromus Re-Ed/Coord Treatment Duration: Aug 09, 2016 Visits Per Week: 10-11 Minutes/Day (M-F): 75-90 Minutes/Day (Sat/Marcano): PRN Agreement: Yes Rehab Potential: Fair Time/GCodes Start Time: 10:30 Stop Time: 11:40 Total Time Billed (hr/min): 70 Billed Treatment Time 1, ADL x 60minutes, EX x 10minutes CORINA TREADWELL OT Jul 17, 2016 11:54
--- NOTE | 2016-07-17 15:00 | Physical Therapy Daily Note ---
PT Daily Note-Current Subjective Patient in bed pre tx, agrees to PT, pleasant and motivated. Pain Numeric Pain Scale: 6 Location: Left Location Body Site: Hip Appearance Patient in bed post tx, has nurse call, phone, tray, all needs met. Patient states she needs suctioned, nurse notified. Mental Status Patient Orientation: Normal For Age Attachments: PEG Tube Transfers Functional [place] Measure 0=Not Assessed/NA 4=Minimal Assistance 1=Total Assistance 5=Supervision or Setup 2=Maximal Assistance 6=Modified [place] 3=Moderate Assistance 7=Complete IndependenceIRFPAI Quality Coding Scale 6 Independent with activity with or without an assistive device 5 Patient requires set up or clean up by helper. Patient completes activity by themselves 4 Supervision or touching assist (CGA). [place] provide cues , steadying assist 3 The helper provides less than half the effort to complete the activity 2 The helper provides more than half the effort to complete the activity 1 Dependent. The helper does all the effort to complete an activity 7 Patient refused to complete or attempt activity 9 The patient did not perform the activity before the current illness or injury 88 Not attempted due to Medical conditions or safety concerns Transfers (B, C, W/C) (FIM): 4 Scootin Rollin Supine to/from Sit: 4 (min assist to get left leg back into bed) Sit to/from Stand: 4 Bed to/from Chair: 4 cues for hand placement and to lock brakes on the wheelchair Treatments After getting up from bed and into a wheelchair patient was taken to the therapy gym and then into the parallel bars. She stood and attempted heel raises but only was able to do a few before she needed to sit down and she said she was going pee. Patient was then taken back to her room, changed and dressed and then transferred back to bed. Assessment Current Status: Fair Progress Patient perform a transfers and bed mobility several times and seem to be getting better at it. PT Short Term Goals Short Term Goals Time Frame: Jul 26, 2016 Transfers (B,C,W/C) (FIM): 4 Gait (FIM): 4 Distance (FIM): 3=150 ft Gait Assistive Device: FWW Wheelchair Distance: 125' Stairs (FIM): 2 # of Steps: 4 Stairs Level of Assist: 4 PT Chcf Goals Social Science Manager Goals PT Social Science Manager Goals Time Frame: Aug 09, 2016 Transfers (B,C,W/C) (FIM): 6 Sit to Lying (QC): 6 Lying-Sitting on Side/Bed(QC): 6 Sit to Stand (QC): 6 Rollin Roll Left to Right (QC): 6 Chair/Stt-so-Cqght Xfer(QC): 6 Car Transfer (QC): 5 Does the Patient Walk: Yes Gait (FIM): 6 Gait distance (FIM): 3=150 ft Walk 10 feet (QC): 6 Walk 10ft-Uneven Surface(QC): 6 Walk 50ft with 2 Turns (QC): 6 Walk 150 ft (QC): 6 Gait Level of Assist: 6 Gait Assistive Device: FWW Stairs (FIM): 5 # of Steps: 8 1 Step (curb) (QC): 5 4 Steps (QC): 5 12 Steps (QC): 88 Stairs Level Of Assist: 5 Picking up an Object (QC): 5 PT Plan Problem List Problem List: Activity Tolerance, Functional Strength, Safety, Balance, Gait, Transfer, Bed Mobility Treatment/Plan Treatment Plan: Continue Plan of Care Treatment Plan: Bed Mobility, Education, Functional Activity Tavares, Functional Strength, Group Therapy (socialization, education), Gait, Safety, Therapeutic Exercise, Transfers Treatment Duration: Aug 09, 2016 Visits Per Week: 10-15 Minutes/Day (M-F): 60-90 Minutes/Day (Sat/Marcano): prn Safety Risks/Education Patient Education: Transfer Techniques, Correct Positioning, Safety Issues Teaching Recipient: Patient Teaching Methods: Demonstration, Discussion Response to Teaching: Reinforcement Needed Time/GCodes Time In: 1430 Time Out: 1500 Total Billed Treatment Time: 30 Total Billed Treatment 1 visit FA 30 min JOSEE SPARKS PT Jul 17, 2016 15:00
--- NOTE | 2016-07-17 15:41 | Occupational Ther Daily Note ---
OT Current Status-Daily Note Subjective No pain reported. Appearance Pt. asleep in bed. Wakes up and agrees to therapy. Mental Status/Objective Patient Orientation: Person, Place, Time, Situation Functional [place] Measure 0=Not Assessed/NA 4=Minimal Assistance 1=Total Assistance 5=Supervision or Setup 2=Maximal Assistance 6=Modified [place] 3=Moderate Assistance 7=Complete [place] ADL-Treatment Functional [place] Measure 0=Not Assessed/NA 4=Minimal Assistance 1=Total Assistance 5=Supervision or Setup 2=Maximal Assistance 6=Modified [place] 3=Moderate Assistance 7=Complete IndependenceIRFPAI Quality Coding Scale 6 Independent with activity with or without an assistive device 5 Patient requires set up or clean up by helper. Patient completes activity by themselves 4 Supervision or touching assist (CGA). [place] provide cues , steadying assist 3 The helper provides less than half the effort to complete the activity 2 The helper provides more than half the effort to complete the activity 1 Dependent. The helper does all the effort to complete an activity 7 Patient refused to complete or attempt activity 9 The patient did not perform the activity before the current illness or injury 88 Not attempted due to Medical conditions or safety concerns Transfers (B, C, W/C) (FIM): 4 (Pt. transfers supine-sit with SBA, and sit- stand with min assist. Able to get legs back into bed with SBA.) Pt. agrees to therapy. Transfers to side of bed with SBA. Participated in fine motor coordination task with nut/bolts to increase strength for tasks such as buttoning shirt. Tolerates this well. Practices standing at bedside. Stand 3 times with min assist each time. Tolerates standing approximately 1 minute each time. Transfers back to bed with SBA for sit-supine. All needs met in room. Education OT Patient Education: Correct positioning, Exercise program, Progress toward Goal/Update tx plan, Purpose of tx/functional activities, Reviewed precautions, Rehab process, Transfer techniques Teaching Recipient: Patient Teaching Methods: Demonstration, Discussion Response to Teaching: Verbalize Understanding, Return Demonstration OT Short Term Goals Short Term Goals Time Frame: Jul 20, 2016 Lower Body Dressing(FIM): 5 Transfers (B,C,W/C) (FIM): 4 Toilet/Commode Transfer(FIM): 4 Additional Short Term Goals: 2-Verbalize Understanding, 3-ImproveStrength/Tavares 1=Demonstrate adherence to instructed precautions during ADL tasks. 2=Patient will verbalize/demonstrate understanding of assistive devices/ modifications for ADL. 3=Patient will improve strength/tolerance for activity to enable patient to perform ADL's. OT Retirement Goals Retirement Goals Time Frame: Aug 09, 2016 Eating (FIM): 5 Eating (QC): 5 Oral Hygiene (QC): 6 Grooming(FIM): 6 Bathing(FIM): 5 Shower/Bathe Self (QC): 5 Upper Body Dressing(FIM): 6 Upper Body Dressing (QC): 6 Lower Body Dressing(FIM): 6 Lower Body Dressing (QC): 6 On/Off Footwear (QC): 6 Toileting(FIM): 6 Toileting Hygiene (QC): 6 Toilet/Commode Transfer(FIM): 6 Toilet/Commode Transfer (QC): 6 Shower Transfer(FIM): 6 Comprehension(FIM): 6 Expression (FIM): 6 Social Interaction(FIM): 6 Problem Solving(FIM): 6 Memory(FIM): 6 Improve bilat UE strength to 5/5 to help with transfers and ADLs Additional Goals: 2-Verbalize Understanding, 3-ImproveStrength/Tavares 1=Demonstrate adherence to instructed precautions during ADL tasks. 2=Patient will verbalize/demonstrate understanding of assistive devices/ modifications for ADL. 3=Patient will improve strength/tolerance for activity to enable patient to perform ADL's. OT Education/Plan Problem List/Assessment Assessment: Decreased Activ Tolerance, Decreased UE Strength, Impaired Bed Mobility, Impaired Funct Balance, Impaired I ADL's, Impaired Self-Care Skills, Restricted Funct UE ROM Pt would benefit from skilled OT to increase her independence in basic self care to allow her to return to son's home and decrease caregiver bruden Discharge Recommendations Plan/Recommendations: Continue POC Therapy D/C Recommendations: Home w/ Family Support, Occupational Therapy Home Care, Scheduled Assistance Treatment Plan/Plan of Care Treatment,Training & Education: Yes Patient would benefit from OT for education, treatment and training to promote independence in ADL's, mobility, safety and/or upper extremity function for ADL' s. Plan of Care: ADL Retraining, Caregiver Training, Functional Mobility, Group Exercise/Act as Ind (education, exercise, activity tolerance, functional activities, safety), UE Funct Exercise/Act, UE Neuromus Re-Ed/Coord Treatment Duration: Aug 09, 2016 Visits Per Week: 10-11 Minutes/Day (M-F): 75-90 Minutes/Day (Sat/Marcano): PRN Agreement: Yes Rehab Potential: Fair Time/GCodes Start Time: 13:10 Stop Time: 13:30 Total Time Billed (hr/min): 20 Billed Treatment Time 1, EX CORINA TREADWELL OT Jul 17, 2016 15:41
[2016-07-17 18:06] VITALS: BP 97/67
[2016-07-17 19:49] VITALS: BP 109/75
[2016-07-18] MEDS: LORazepam 0.5 MG (ATIVAN) TABLET PEG PRN ×4 (00:32→22:42)
[2016-07-18] MEDS: HYDROcodone/APAP 7.5 MG/325 MG (LORTAB, LORCET PLUS) TABLET PO PRN ×5 (00:33→22:42)
[2016-07-18 06:00] VITALS: BP 105/71
[2016-07-18] MEDS: inSUlin (REGULAR) HUMAN 1 UNIT/0.01 ML (CHARGE PER UNIT) SC SCH ×4 (06:00→20:48)
[2016-07-18] MEDS: RT-ALBUTEROL/IPRATROPIUM 3 ML (DUONEB) VIAL INH SCH ×4 (06:20→19:55)
--- NOTE | 2016-07-18 08:00 | Progress Note (SOAP) ---
Subjective Subjective/Events-last exam patient has no complaints this a.m. Patient during the day blood sugars elevated. Increase basal insulin. Patient getting out of bed with 2 person assist Objective Exam Vital Signs Date Time Temp Pulse Resp B/P Pulse Ox O2 Delivery O2 Flow Rate FiO2 07/18/16 06:20 100 6.00 28 07/18/16 06:00 96.9 93 18 105/71 96 Room Air 07/17/16 20:30 Trach Collar 4.00 07/17/16 20:06 97 6.00 28 07/17/16 19:49 109/75 07/17/16 18:06 96.9 98 16 97/67 96 07/17/16 09:00 Trach Collar 4.00 I & O 07/18/16 07:00 Intake Total 2350 ml Balance 2350 ml Capillary Refill : General Appearance: No Apparent Distress WD/WN HEENT: Other (has trach) Neck: Normal Inspection Respiratory: Chest Non Tender No Accessory Muscle Use No Respiratory Distress Cardiovascular: Regular Rate, Rhythm No Murmur Gastrointestinal: other (PEG tube) Results Lab Laboratory Tests 07/17/16 11:05: Glucometer 363H 07/17/16 15:19: Glucometer 340H 07/17/16 18:07: Glucometer 194H 07/17/16 20:03: Glucometer 138H 07/18/16 06:18: Glucometer 174H Assessment/Plan Assessment/Plan Assess & Plan/Chief Complaint hip fracture. Perforated esophageal ulcer . Hypertension diabetes. Previous suicide attempts. Depression. . 07/16/16. Hip fracture. Perforated esophageal ulcer. Hypertension. Diabetes. Previous suicide attempts. Depression. . 07/17/16. Hip fracture. Hypertension. Diabetes. Depression Hypertension. Diabetes.. Patient doing okay today. . 07/18/16. Hip fracture hypertension. Diabetes. Patient improving Diagnosis/Problems: Clinical Quality Measures DVT/VTE Risk/Contraindication: Risk Factor Score Per Nursin RFS Level Per Nursing on Admit: 3=High RANDI RIBEIRO DO Jul 18, 2016 08:00
[2016-07-18] MEDS: NYSTATIN ORAL SUSP 5 ML UDC PO SCH ×4 (08:54→20:52)
[2016-07-18] MEDS: CARVEDILOL 12.5 MG (COREG) TABLET PO SCH ×2 (08:54→20:52)
[2016-07-18] MEDS: ASPIRIN E.C. 81 MG (ECOTRIN) TAB PO SCH (08:54)
[2016-07-18] MEDS: ENOXAPARIN 40 MG/0.4 ML (LOVENOX) SYR SC SCH (08:55)
[2016-07-18] MEDS: inSUlin DETERMIR 1 UNIT/0.01 ML (LEVEMIR) CHARGE PER UNIT SQ SCH ×2 (08:56→20:51)
--- NOTE | 2016-07-18 09:24 | PM & R (SOAP) Progress Note ---
Subjective Subjective/Events-last exam Patient was seen in her room this AM Appreciate Dr thorpe notes and orders Therapy notes reviewed Patient Min assist for transfers Accuchecks and current labs noted Objective Exam Last Set of Vital Signs Vital Signs Date Time Temp Pulse Resp B/P Pulse Ox O2 Delivery O2 Flow Rate FiO2 07/18/16 06:20 100 6.00 28 07/18/16 06:00 96.9 93 18 105/71 Room Air Capillary Refill : I&O Intake and Output 07/18/16 00:00 Intake Total 2300 ml Balance 2300 ml Tube Feeding 1600 ml Other 700 ml # Voids 1 # Urine Diapers 8 General: Alert, Oriented X3, Cooperative, No Acute Distress HEENT: Atraumatic, PERRLA, EOMI, Mucous Memb Moist/Fowler Neck: Other (trach) Lungs: Clear to Auscultation Heart: Regular Rate Abdomen: Normal Bowel Sounds, Soft, No Tenderness, Other (Peg tube in place) Extremities: Other (trace edema) Neuro: Other (Weakness both lower legs left >rt) Results Lab Laboratory Tests 07/15/16 11:37: Glucometer 365H 07/15/16 15:57: Glucometer 328H 07/15/16 20:47: Glucometer 250H 07/16/16 06:00: Glucometer 253H 07/16/16 11:21: Glucometer 361H 07/16/16 16:39: Glucometer 348H 07/16/16 19:52: Glucometer 154H 07/17/16 06:27: Glucometer 151H 07/17/16 11:05: Glucometer 363H 07/17/16 15:19: Glucometer 340H 07/17/16 18:07: Glucometer 194H 07/17/16 20:03: Glucometer 138H 07/18/16 06:18: Glucometer 174H Assessment/Plan Assessment Comminuted left intertrochanteric fracture s/p repair OSH ortho S/P trach for pneumonia and ards S/P espohageal rupture and repair OSH-with hx of esophageal varices NPO status on tube feeds-MBS to be done with ST HX of substance abuse and etoh use DM meds being adjusted Plan Continue PT/OT/ST F/U with Lucy and check CXR-done Trial of capping trach-ongoing RT F/U Appreciate Dr Thorpe notes and orders Stock Blender has made recs re tube feeds Discussed with RN last we Appreciate Dr Hidalgo notes and orders Trend Accuchecks and adjust meds as needed Team Conference to be held later today-see report for full functional update and POC and RAHEEM RODRIGUEZ MD Jul 18, 2016 09:24
--- NOTE | 2016-07-18 12:15 | Occupational Ther Daily Note ---
OT Current Status-Daily Note Subjective Pt. reports that her left hip hurts, but does not give a pain level. States, " I have already had something." Appearance Pt. is in bed. Declines bathing but agrees to come to therapy gym to work on UE strengthening. Mental Status/Objective Patient Orientation: Person, Place Functional [place] Measure 0=Not Assessed/NA 4=Minimal Assistance 1=Total Assistance 5=Supervision or Setup 2=Maximal Assistance 6=Modified [place] 3=Moderate Assistance 7=Complete [place] ADL-Treatment Functional [place] Measure 0=Not Assessed/NA 4=Minimal Assistance 1=Total Assistance 5=Supervision or Setup 2=Maximal Assistance 6=Modified [place] 3=Moderate Assistance 7=Complete IndependenceIRFPAI Quality Coding Scale 6 Independent with activity with or without an assistive device 5 Patient requires set up or clean up by helper. Patient completes activity by themselves 4 Supervision or touching assist (CGA). [place] provide cues , steadying assist 3 The helper provides less than half the effort to complete the activity 2 The helper provides more than half the effort to complete the activity 1 Dependent. The helper does all the effort to complete an activity 7 Patient refused to complete or attempt activity 9 The patient did not perform the activity before the current illness or injury 88 Not attempted due to Medical conditions or safety concerns Other Treatment Pt. is in bed. Agrees to treatment. Does not want to wear her speaking valve, but does plug trach with her finger when she wants to have a voice. Transferred supine-sit with SBA. Sit-stand with min assist and transferred to wheelchair. Went to therapy gym. Participated in series of UE strengthening tasks to increase overall strength. Tolerated armbike at mod resistance x 15minutes with 1 rest break to increase strength to brush hair, don shirt, hold walker. Then completed arm arc to increase UE ROM at shoulder level. Donned 1 lb. wrist weights to complete peg activity for increased UE strength. Spoke with pt.regarding home set up. Pt. states that she will have a lot of help at home from her son and her sister. States that she wants to go home. Spoke to her about the trach and peg tube. Pt. does not know how long she will need this. Went back to room. Transferred back to bed with min assist. All needs met at this time. Education OT Patient Education: Correct positioning, Modified ADL techniques, Progress toward Goal/Update tx plan, Purpose of tx/functional activities, Reviewed precautions, Rehab process, Transfer techniques Teaching Recipient: Patient Teaching Methods: Demonstration, Discussion Response to Teaching: Verbalize Understanding, Return Demonstration OT Short Term Goals Short Term Goals Time Frame: Jul 20, 2016 Lower Body Dressing(FIM): 5 Transfers (B,C,W/C) (FIM): 4 Toilet/Commode Transfer(FIM): 4 Additional Short Term Goals: 2-Verbalize Understanding, 3-ImproveStrength/Tavares 1=Demonstrate adherence to instructed precautions during ADL tasks. 2=Patient will verbalize/demonstrate understanding of assistive devices/ modifications for ADL. 3=Patient will improve strength/tolerance for activity to enable patient to perform ADL's. OT Correction Goals Load Blocker Goals Time Frame: Aug 09, 2016 Eating (FIM): 5 Eating (QC): 5 Oral Hygiene (QC): 6 Grooming(FIM): 6 Bathing(FIM): 5 Shower/Bathe Self (QC): 5 Upper Body Dressing(FIM): 6 Upper Body Dressing (QC): 6 Lower Body Dressing(FIM): 6 Lower Body Dressing (QC): 6 On/Off Footwear (QC): 6 Toileting(FIM): 6 Toileting Hygiene (QC): 6 Toilet/Commode Transfer(FIM): 6 Toilet/Commode Transfer (QC): 6 Shower Transfer(FIM): 6 Comprehension(FIM): 6 Expression (FIM): 6 Social Interaction(FIM): 6 Problem Solving(FIM): 6 Memory(FIM): 6 Improve bilat UE strength to 5/5 to help with transfers and ADLs Additional Goals: 2-Verbalize Understanding, 3-ImproveStrength/Tavares 1=Demonstrate adherence to instructed precautions during ADL tasks. 2=Patient will verbalize/demonstrate understanding of assistive devices/ modifications for ADL. 3=Patient will improve strength/tolerance for activity to enable patient to perform ADL's. OT Education/Plan Problem List/Assessment Assessment: Decreased Activ Tolerance, Decreased UE Strength, Dependent Transfers, Impaired Bed Mobility, Impaired Funct Balance, Impaired I ADL's, Impaired Self-Care Skills, Restricted Funct UE ROM Pt would benefit from skilled OT to increase her independence in basic self care to allow her to return to son's home and decrease caregiver bruden Discharge Recommendations Plan/Recommendations: Continue POC Therapy D/C Recommendations: Home w/ Family Support, Occupational Therapy Home Care, Longterm (TCU/NH) Equpiment Recommendations-D/C: Extended Bath Bench Comment Pt. needs a walker as well. Target Placement Home with family support. Treatment Plan/Plan of Care Treatment,Training & Education: Yes Patient would benefit from OT for education, treatment and training to promote independence in ADL's, mobility, safety and/or upper extremity function for ADL' s. Plan of Care: ADL Retraining, Caregiver Training, Functional Mobility, Group Exercise/Act as Ind (education, exercise, activity tolerance, functional activities, safety), UE Funct Exercise/Act, UE Neuromus Re-Ed/Coord Treatment Duration: Aug 09, 2016 Visits Per Week: 10-11 Minutes/Day (M-F): 75-90 Minutes/Day (Sat/Marcano): PRN Agreement: Yes Rehab Potential: Fair Time/GCodes Start Time: 10:30 Stop Time: 11:30 Total Time Billed (hr/min): 60 Billed Treatment Time 1, EX x 30minutes, FA x 30minutes CORINA TREADWELL OT Jul 18, 2016 12:15
--- NOTE | 2016-07-18 13:35 | Speech Therapy Daily Note ---
Speech Daily Progress Note Subjective The patient was seated upright in bed upon entrance. The patient greeted the clinician appropriately and agreed to participate in dysphagia therapy on this date. Objective Passy Mykel Speaking Valve (PMV): Per patient, she is tolerating the speaking valve, however, continues to feel "a little short of breath." Prior to placement , the patient's SpO2% was 95%. The patient was able to independently place PMV. In place, the patient's SpO2% fluctuated between 84% and 94% throughout a period of 15 minutes. The patient's SpO2% increased once external pressure was placed to the trach (repositioned), as well as, her voice (improved). Per RT, the patient's trach does not lay well in the airway at rest and improves with the above external pressure. Backflow is noted when the patient removes the PMV. Dysphagia Exercises: Dysphagia exercises were initiated on this date. The patient demonstrated good accuracy with dysphagia exercises following direct modeling by the clinician. Assessment Assessment Current Status: Good Progress Treatment Plan Continue Plan of Care Communication Comprehension: 5 Expression: 4 Social Cognition Social Interaction: 4 Problem Solvin Memory: 4 Speech Short Term Goals Short Term Goals Short Term Goals 1. The patient will tolerate trials of the least restrictive diet without signs/ symptoms of aspiration or laryngeal penetration. 2. The patient will participate in a video swallow to definitely rule out aspiration. 3. The patient will demonstrate swallowing strategies, independently. 4. The patient will demonstrate base of tongue, pharyngeal, and laryngeal elevation exercises with 80% accuracy and mild clinician cueing. 5. The patient will demonstrate resonant voice techniques to aid in vocalizations with 80% accuracy and moderate clinician verbal cueing and direct modeling. Time Frame-STG: Two Weeks Speech Jail Goals Oven Stripper Goals 1. The patient will tolerate the least restrictive diet without signs/symptoms of aspiration or laryngeal penetration. 2. The patient will demonstrate reduced laryngeal tension for increase use of audible voice. Time Frame: Eight Weeks Comprehension: 6 Expression: 6 Social Interaction: 6 Problem Solvin Memory: 6 Speech-Plan Treatment Plan Speech Therapy Treatment Plan: Continue Plan of Care Treatment Duration: Sep 07, 2016 # of days/week Four to Five Visits Per Week: Four to Five Minutes/Day (M-F): 30 Rehab Potential: Fair Safety Risks/Education Teaching Recipient: Patient Teaching Methods: Demonstration, Handout, Discussion Response to Teaching: Verbalize Understanding Education Topics Provided: Dysphagia Exercises Time Speech Therapy Time In: 10:00 Speech Therapy Time Out: 10:30 Total Billed Time: 30 Billed Treatment Time 1, AUNG FREEMAN Jul 18, 2016 13:35
--- NOTE | 2016-07-18 14:08 | Physical Therapy Daily Note ---
PT Daily Note-Current Subjective Pt supine in bed upon arrival. RT is just finishing breathing tx with pt. Pt is encouraged to use speaking valve as often as possible to help so trach. can be removed. Pt agrees to PT although reports pain of 7/10 in outer L calf. Pain Numeric Pain Scale: 10-Worst Possible Pain Location: Left, Lateral Location Body Site: Calf Pain Description: Stabbing, Sharp Comment: Pt increased pain during supine Ex and asked to discontinue. Mental Status Patient Orientation: Person, Place, Time, Situation Attachments: PEG Tube Transfers Functional [place] Measure 0=Not Assessed/NA 4=Minimal Assistance 1=Total Assistance 5=Supervision or Setup 2=Maximal Assistance 6=Modified [place] 3=Moderate Assistance 7=Complete IndependenceIRFPAI Quality Coding Scale 6 Independent with activity with or without an assistive device 5 Patient requires set up or clean up by helper. Patient completes activity by themselves 4 Supervision or touching assist (CGA). [place] provide cues , steadying assist 3 The helper provides less than half the effort to complete the activity 2 The helper provides more than half the effort to complete the activity 1 Dependent. The helper does all the effort to complete an activity 7 Patient refused to complete or attempt activity 9 The patient did not perform the activity before the current illness or injury 88 Not attempted due to Medical conditions or safety concerns Transfers (B, C, W/C) (FIM): 4 Scootin Rollin Supine to/from Sit: 5 Sit to/from Stand: 4 Sit to Lying (QC): 4 Sit to Stand (QC): 4 Chair/Ncz-pt-[place] Xfer(QC): 4 Bed to/from Chair: 4 Weight Bearing Weight Bearing Restriction: Full Weight Bearing Location Restriction: LE Bilateral Wheelchair Training Does the Pt Use a Wheelchair?: Yes Wheelchair (FIM): 3 Wheelchair Distance: 1=934-92 ft Distance: 80' Wheelchair Level of Assist: 4 Wheel 50 ft with 2 turns (QC): 5 Wheel 150 ft (QC): 88 Type of Wheelchair: Manual Pt needs assistance with managing pt's feeding tube during W/C mobility as well as fatigues and needs to rest before arriving at Therapy Gym. Exercises Supine Ex: Ankle pumps, Quad Set, Heel Slides, Straight leg raise, Hip abd/add Supine Reps: 15 Treatments Pt transferred from supine to EOB at SBA and EOB to standing for SPT at Min A. Pt propelled W/C to Therapy Gym. Pt transferred from W/C to mat for Supine Ex at Min A. Pt completed supine Ex but at end of Ex c/o sharp increase in pain in lateral L calf. Pt asked to return to room to rest. Notfied nursing of pain increase but was too early to have pain med. Nursing will watch. Pt transferred from W/C to supine in bed at Min A. Pt was left with call light and all needs met at end of tx. Assessment Current Status: Fair Progress Pt reports sharp increase in pain with EX. Pt will notify staff if continues. PT Short Term Goals Short Term Goals Time Frame: Jul 26, 2016 Transfers (B,C,W/C) (FIM): 4 Gait (FIM): 4 Distance (FIM): 3=150 ft Gait Assistive Device: FWW Wheelchair Distance: 125' Stairs (FIM): 2 # of Steps: 4 Stairs Level of Assist: 4 PT Equipment Maintenance Tech Goals Usp Goals PT Usp Goals Time Frame: Aug 09, 2016 Transfers (B,C,W/C) (FIM): 6 Sit to Lying (QC): 6 Lying-Sitting on Side/Bed(QC): 6 Sit to Stand (QC): 6 Rollin Roll Left to Right (QC): 6 Chair/Gwb-hh-Ibfwi Xfer(QC): 6 Car Transfer (QC): 5 Does the Patient Walk: Yes Gait (FIM): 6 Gait distance (FIM): 3=150 ft Walk 10 feet (QC): 6 Walk 10ft-Uneven Surface(QC): 6 Walk 50ft with 2 Turns (QC): 6 Walk 150 ft (QC): 6 Gait Level of Assist: 6 Gait Assistive Device: FWW Stairs (FIM): 5 # of Steps: 8 1 Step (curb) (QC): 5 4 Steps (QC): 5 12 Steps (QC): 88 Stairs Level Of Assist: 5 Picking up an Object (QC): 5 PT Plan Problem List Problem List: Activity Tolerance, Functional Strength, Safety, Balance, Gait, Transfer Treatment/Plan Treatment Plan: Continue Plan of Care Treatment Plan: Bed Mobility, Education, Functional Activity Tavares, Functional Strength, Group Therapy (socialization, education), Gait, Safety, Therapeutic Exercise, Transfers Treatment Duration: Aug 09, 2016 Visits Per Week: 10-15 Minutes/Day (M-F): 60-90 Minutes/Day (Sat/Marcano): prn Safety Risks/Education Patient Education: Gait Training, Transfer Techniques, Correct Positioning, Safety Issues Teaching Recipient: Patient Teaching Methods: Discussion Time/GCodes Time In: 1130 Time Out: 1215 Total Billed Treatment Time: 45 Total Billed Treatment visit, EX (20m) & FA X2 (25m) PAULINE DE LA PAZ ECONOMIC DEVELOPMENT MANAGER Jul 18, 2016 14:08
--- NOTE | 2016-07-18 15:20 | Therapy Group Daily Note ---
Therapy Daily Group Note Patient Education Topic Exercises, Other List Below (Educationon arthritis, benefits of using a paraffin bath, built up utensils) Exercises Stretching, UE Exercise Other/Notes Pt participated socially by introducing self and describing what she likes to do to help her relax. Topic of discussion was arthritis, carpal tunnel and the benefits of using a paraffin bath, different types of AE for arthritis. Pt was able to place both hands in the paraffin bath. Pt then completed nerve glide exercise. Pt transported back to room. Pt left sitting in w/c. Call light in hand. All needs met. Start Time: 13:00 Stop Time: 14:10 Total Billed Treatment Time: 70 Total Billed Treatment 1-GRP DALIA ENGLE Jul 18, 2016 15:20
[2016-07-18 18:44] VITALS: BP 103/70
[2016-07-19] MEDS: inSUlin (REGULAR) HUMAN 1 UNIT/0.01 ML (CHARGE PER UNIT) SC SCH ×4 (05:34→21:05)
[2016-07-19 06:00] VITALS: BP 108/71
[2016-07-19] MEDS: RT-ALBUTEROL/IPRATROPIUM 3 ML (DUONEB) VIAL INH SCH ×4 (07:07→19:03)
[2016-07-19] MEDS: ASPIRIN E.C. 81 MG (ECOTRIN) TAB PO SCH (08:26)
[2016-07-19] MEDS: CARVEDILOL 12.5 MG (COREG) TABLET PO SCH ×2 (08:26→20:45)
[2016-07-19] MEDS: NYSTATIN ORAL SUSP 5 ML UDC PO SCH ×4 (08:27→20:46)
[2016-07-19] MEDS: inSUlin DETERMIR 1 UNIT/0.01 ML (LEVEMIR) CHARGE PER UNIT SQ SCH ×2 (08:27→20:45)
[2016-07-19] MEDS: ENOXAPARIN 40 MG/0.4 ML (LOVENOX) SYR SC SCH (08:27)
--- NOTE | 2016-07-19 08:34 | PM & R (SOAP) Progress Note ---
Subjective Subjective/Events-last exam Patient was seen in her room this AM Patient min assist for transfers Objective Exam Last Set of Vital Signs Vital Signs Date Time Temp Pulse Resp B/P Pulse Ox O2 Delivery O2 Flow Rate FiO2 07/19/16 07:07 98 6.00 28 07/19/16 06:00 97.5 89 22 108/71 Room Air Capillary Refill : I&O Intake and Output 07/19/16 00:00 Intake Total 2350 ml Balance 2350 ml Tube Feeding 1250 ml Other 1100 ml # Voids 3 # Urine Diapers 4 General: Alert, Oriented X3, Cooperative, No Acute Distress HEENT: Atraumatic, PERRLA, EOMI, Mucous Memb Moist/[place] Neck: Other (trach) Lungs: Clear to Auscultation Heart: Regular Rate Abdomen: Normal Bowel Sounds, Soft, No Tenderness, Other (Peg tube in place) Extremities: Other (trace edema) Neuro: Other (Weakness both lower legs left >rt) Results Lab Laboratory Tests 07/16/16 11:21: Glucometer 361H 07/16/16 16:39: Glucometer 348H 07/16/16 19:52: Glucometer 154H 07/17/16 06:27: Glucometer 151H 07/17/16 11:05: Glucometer 363H 07/17/16 15:19: Glucometer 340H 07/17/16 18:07: Glucometer 194H 07/17/16 20:03: Glucometer 138H 07/18/16 06:18: Glucometer 174H 07/18/16 11:02: Glucometer 309H 07/18/16 15:50: Glucometer 247H 07/18/16 20:48: Glucometer 145H 07/19/16 05:31: Glucometer 184H Assessment/Plan Assessment Comminuted left intertrochanteric fracture s/p repair OSH ortho S/P trach for pneumonia and ards S/P espohageal rupture and repair OSH-with hx of esophageal varices NPO status on tube feeds-MBS to be done with ST HX of substance abuse and etoh use DM meds being adjusted Plan Continue PT/OT/ST F/U with Lucy and check CXR-done Trial of capping trach-ongoing RT F/U Appreciate Dr Thorpe notes and orders Corporate Strategy Associate has made recs re tube feeds Discussed with RN last week Appreciate Dr Hidalgo notes and orders Trend Accuchecks and adjust meds as needed Team Conference held yesterday-see report for full functional update and POC and RAHEEM RODRIGUEZ MD Jul 19, 2016 08:33
[2016-07-19] MEDS: HYDROcodone/APAP 7.5 MG/325 MG (LORTAB, LORCET PLUS) TABLET PO PRN ×3 (09:44→20:45)
--- NOTE | 2016-07-19 09:45 | Progress Note (SOAP) ---
Subjective Subjective/Events-last exam patient states she's feeling better. Patient sugars still elevated but coming down some. Patient getting around with a walker Objective Exam Vital Signs Date Time Temp Pulse Resp B/P Pulse Ox O2 Delivery O2 Flow Rate FiO2 07/19/16 07:07 98 6.00 28 07/19/16 06:00 97.5 89 22 108/71 96 Room Air 07/19/16 02:57 28 07/18/16 20:30 Trach Collar 07/18/16 19:55 94 6.00 28 07/18/16 18:44 97.1 95 18 103/70 97 Room Air 07/18/16 15:57 94 07/18/16 11:23 93 I & O 07/19/16 06:59 Intake Total 2350 ml Balance 2350 ml Capillary Refill : General Appearance: No Apparent Distress WD/WN HEENT: Normal ENT Inspection Neck: Other (trach) Respiratory: Chest Non Tender No Accessory Muscle Use No Respiratory Distress Cardiovascular: Regular Rate, Rhythm Gastrointestinal: non tender soft Results Lab Laboratory Tests 07/18/16 11:02: Glucometer 309H 07/18/16 15:50: Glucometer 247H 07/18/16 20:48: Glucometer 145H 07/19/16 05:31: Glucometer 184H Assessment/Plan Assessment/Plan Assess & Plan/Chief Complaint hip fracture. Perforated esophageal ulcer . Hypertension diabetes. Previous suicide attempts. Depression. . 07/16/16. Hip fracture. Perforated esophageal ulcer. Hypertension. Diabetes. Previous suicide attempts. Depression. . 07/17/16. Hip fracture. Hypertension. Diabetes. Depression Hypertension. Diabetes.. Patient doing okay today. . 07/18/16. Hip fracture hypertension. Diabetes. Patient improving. . 07/19/16 hip fracture. Diabetes. Patient feel she is improving. Patient getting around with a walker. Sugars still elevated. More levimir Diagnosis/Problems: Clinical Quality Measures DVT/VTE Risk/Contraindication: Risk Factor Score Per Nursin RFS Level Per Nursing on Admit: 3=High RANDI RIBEIRO DO Jul 19, 2016 09:44
--- NOTE | 2016-07-19 10:15 | ST Mod Barium Swallow ---
Speech Evaluation-General Medical Diagnosis left hip fracture, ARDS, ARF Onset Date: May 04, 2016 Precautions Precautions: Aspiration Precautions/Isolations: Fall Prevention, Standard Precautions Referral Referring Physician: Dr. Giuseppe Youngblood Reason for Referral: Evaluation/Treatment Medical History Pertinent Medical History: DM, Fractures, Smoking Reviewed History: Yes Social History Current Living Status: Speech Mod Barium Swallow Summary/Impressions 1. The patient should remain NPO with primary nutrition, hydration, and medication received via PEJ tube. 2. Therapeutic trials of puree consistency (two to three teaspoons) with speech pathology, only. 3. Frequent, consistent oral care to reduce the transfer of oral bacteria to the lungs should aspiration of secretions occur. 4. Consider further esophageal evaluation, such as an EGD, due to the patient's demonstrated impaired esophageal motility and presence of aspiration. 5. Continue dysphagia strengthening exercises, as directed. Speech Short Term Goals Short Term Goals Short Term Goals 1. The patient will tolerate trials of the least restrictive diet without signs/ symptoms of aspiration or laryngeal penetration. 2. The patient will participate in a video swallow to definitely rule out aspiration. 3. The patient will demonstrate swallowing strategies, independently. 4. The patient will demonstrate base of tongue, pharyngeal, and laryngeal elevation exercises with 80% accuracy and mild clinician cueing. 5. The patient will demonstrate resonant voice techniques to aid in vocalizations with 80% accuracy and moderate clinician verbal cueing and direct modeling. Time Frame-STG: Two Weeks Speech [facility] Goals High School Director Goals 1. The patient will tolerate the least restrictive diet without signs/symptoms of aspiration or laryngeal penetration. 2. The patient will demonstrate reduced laryngeal tension for increase use of audible voice. Time Frame: Eight Weeks Comprehension: 6 Expression: 6 Social Interaction: 6 Problem Solvin Memory: 6 Speech-Plan Treatment Plan Treatment Duration: Sep 07, 2016 Visits Per Week: Four to Five Minutes/Day (M-F): 30 Rehab Potential: AUNG uSarez Jul 19, 2016 10:15
--- NOTE | 2016-07-19 11:16 | Physical Therapy Daily Note ---
PT Daily Note-Current Subjective Agrees to rx but states she is so very tired. Agrees to ther ex in bed, TRFs and sit to stands and pre gait activity Pain Numeric Pain Scale: 0-No Pain Mental Status Patient Orientation: Normal For Age Attachments: Oxygen, PEG Tube Transfers Functional [place] Measure 0=Not Assessed/NA 4=Minimal Assistance 1=Total Assistance 5=Supervision or Setup 2=Maximal Assistance 6=Modified [place] 3=Moderate Assistance 7=Complete IndependenceIRFPAI Quality Coding Scale 6 Independent with activity with or without an assistive device 5 Patient requires set up or clean up by helper. Patient completes activity by themselves 4 Supervision or touching assist (CGA). [place] provide cues , steadying assist 3 The helper provides less than half the effort to complete the activity 2 The helper provides more than half the effort to complete the activity 1 Dependent. The helper does all the effort to complete an activity 7 Patient refused to complete or attempt activity 9 The patient did not perform the activity before the current illness or injury 88 Not attempted due to Medical conditions or safety concerns Transfers (B, C, W/C) (FIM): 4 Scootin Rollin Supine to/from Sit: 5 Sit to/from Stand: 4 Bed to/from Chair: 4 Gait Training Gait Assistive Device: FWW side stepping left and right at bedside Exercises Supine Ex: Bridging, Ankle pumps, Quad Set, Rolling, Glut sets, Lower trunk rotation, Heel Slides, Short Arc Quads, Scooting, Straight leg raise, Hip abd/ add Supine Reps: 20 Seated Therapy Exercises: Ankle pumps, Sit to stand, Long arc quads, Hip flexion Seated Reps: 12 Assessment Current Status: Good Progress pt. needed suctioned during Rx , was plagued with heavy secretions PT Short Term Goals Short Term Goals Time Frame: Jul 26, 2016 Transfers (B,C,W/C) (FIM): 4 Gait (FIM): 4 Distance (FIM): 3=150 ft Gait Assistive Device: FWW Wheelchair Distance: 80' Stairs (FIM): 2 # of Steps: 4 Stairs Level of Assist: 4 PT Director Of Healthcare Systems Goals Director Of Healthcare Systems Goals PT Shelter Goals Time Frame: Aug 09, 2016 Transfers (B,C,W/C) (FIM): 6 Sit to Lying (QC): 6 Lying-Sitting on Side/Bed(QC): 6 Sit to Stand (QC): 6 Rollin Roll Left to Right (QC): 6 Chair/Exw-sn-Pvgsm Xfer(QC): 6 Car Transfer (QC): 5 Does the Patient Walk: Yes Gait (FIM): 6 Gait distance (FIM): 3=150 ft Walk 10 feet (QC): 6 Walk 10ft-Uneven Surface(QC): 6 Walk 50ft with 2 Turns (QC): 6 Walk 150 ft (QC): 6 Gait Level of Assist: 6 Gait Assistive Device: FWW Stairs (FIM): 5 # of Steps: 8 1 Step (curb) (QC): 5 4 Steps (QC): 5 12 Steps (QC): 88 Stairs Level Of Assist: 5 Picking up an Object (QC): 5 PT Plan Treatment/Plan Treatment Plan: Continue Plan of Care Treatment Plan: Bed Mobility, Education, Functional Activity Tavares, Functional Strength, Group Therapy (socialization, education), Gait, Safety, Therapeutic Exercise, Transfers Treatment Duration: Aug 09, 2016 Visits Per Week: 10-15 Minutes/Day (M-F): 60-90 Minutes/Day (Sat/Marcano): prn Safety Risks/Education Patient Education: Transfer Techniques, Correct Positioning, Safety Issues Teaching Recipient: Patient Teaching Methods: Demonstration, Discussion Response to Teaching: Verbalize Understanding, Return Demonstration, Reinforcement Needed Time/GCodes Time In: 1030 Time Out: 1115 Total Billed Treatment Time: 45 Total Billed Treatment 1,FA20m,EX25m G Codes Necessary: ADAMS Rubin MARKETING AND PROMOTIONS MANAGER Jul 19, 2016 11:16
--- NOTE | 2016-07-19 11:44 | Diagnostic Imaging Report ---
EXAM: Modified barium swallow. INDICATION: Dysphagia. FINDINGS: This study was performed in the presence of the speech pathologist, Deedee Blanca. The patient was asked to swallow barium impregnated substances including honey and nectar consistencies. The patient did show penetration without cough with both of these substances. Also, during the course of the exam, it was noted that there was to and fro motion of the contrast within the esophagus. This does suggest disordered esophageal motility. If further evaluation is desired, then an esophagram should be considered. However, the esophagram itself could be precarious due to the patient's compromised swallowing mechanism. Endoscopy should also be considered for additional study. IMPRESSION: The swallowing mechanism is compromised as there is penetration with both the nectar and honey consistencies. The esophageal motility also appears abnormal. Considerations as above. Dictated by: Dictated on workstation # [id number]
--- NOTE | 2016-07-19 12:37 | Occupational Ther Daily Note ---
OT Current Status-Daily Note Subjective Pt alert and lying in bed. Pt agreed to therapy. No c/o pain at this time. Mental Status/Objective Patient Orientation: Person, Place, Time, Situation Functional [place] Measure 0=Not Assessed/NA 4=Minimal Assistance 1=Total Assistance 5=Supervision or Setup 2=Maximal Assistance 6=Modified [place] 3=Moderate Assistance 7=Complete [place] ADL-Treatment Pt agreed to sponge bath. Pt was able to go from supine to sit EOB by self. Min A with transfer from bed to chair using FWW. Pt then was able to bathe self sitting in chair after set up using AE for lower body bathing. Pt was able to don pants by self and using AE to don L sock and donned R sock by self. Pt was able to brush hair and cleanse mouth with swab by self. Functional [place] Measure 0=Not Assessed/NA 4=Minimal Assistance 1=Total Assistance 5=Supervision or Setup 2=Maximal Assistance 6=Modified [place] 3=Moderate Assistance 7=Complete IndependenceIRFPAI Quality Coding Scale 6 Independent with activity with or without an assistive device 5 Patient requires set up or clean up by helper. Patient completes activity by themselves 4 Supervision or touching assist (CGA). [place] provide cues , steadying assist 3 The helper provides less than half the effort to complete the activity 2 The helper provides more than half the effort to complete the activity 1 Dependent. The helper does all the effort to complete an activity 7 Patient refused to complete or attempt activity 9 The patient did not perform the activity before the current illness or injury 88 Not attempted due to Medical conditions or safety concerns Grooming (FIM): 6 Upper Body (FIM): 5 Lower Body Dressing (FIM): 5 On/Off Footwear (QC): 5 Other Treatment Pt transported to therapy gym via w/c. Completed arm bike for 15 min at 10 tang resistance to increase strength and activity tolerance for daily functional tasks (no breaks). After therapy, pt lying in bed with call light/ phone in reach. All needs met in room. OT Short Term Goals Short Term Goals Time Frame: Jul 20, 2016 Lower Body Dressing(FIM): 5 Transfers (B,C,W/C) (FIM): 4 Toilet/Commode Transfer(FIM): 4 Additional Short Term Goals: 2-Verbalize Understanding, 3-ImproveStrength/Tavares 1=Demonstrate adherence to instructed precautions during ADL tasks. 2=Patient will verbalize/demonstrate understanding of assistive devices/ modifications for ADL. 3=Patient will improve strength/tolerance for activity to enable patient to perform ADL's. OT Head Animal Keeper Goals Snf Goals Time Frame: Aug 09, 2016 Eating (FIM): 5 Eating (QC): 5 Oral Hygiene (QC): 6 Grooming(FIM): 6 Bathing(FIM): 5 Shower/Bathe Self (QC): 5 Upper Body Dressing(FIM): 6 Upper Body Dressing (QC): 6 Lower Body Dressing(FIM): 6 Lower Body Dressing (QC): 6 On/Off Footwear (QC): 6 Toileting(FIM): 6 Toileting Hygiene (QC): 6 Toilet/Commode Transfer(FIM): 6 Toilet/Commode Transfer (QC): 6 Shower Transfer(FIM): 6 Comprehension(FIM): 6 Expression (FIM): 6 Social Interaction(FIM): 6 Problem Solving(FIM): 6 Memory(FIM): 6 Improve bilat UE strength to 5/5 to help with transfers and ADLs Additional Goals: 2-Verbalize Understanding, 3-ImproveStrength/Tavares 1=Demonstrate adherence to instructed precautions during ADL tasks. 2=Patient will verbalize/demonstrate understanding of assistive devices/ modifications for ADL. 3=Patient will improve strength/tolerance for activity to enable patient to perform ADL's. OT Education/Plan Problem List/Assessment Pt would benefit from skilled OT to increase her independence in basic self care to allow her to return to son's home and decrease caregiver bruden Discharge Recommendations Plan/Recommendations: Continue POC Treatment Plan/Plan of Care Patient would benefit from OT for education, treatment and training to promote independence in ADL's, mobility, safety and/or upper extremity function for ADL' s. Plan of Care: ADL Retraining, Caregiver Training, Functional Mobility, Group Exercise/Act as Ind (education, exercise, activity tolerance, functional activities, safety), UE Funct Exercise/Act, UE Neuromus Re-Ed/Coord Treatment Duration: Aug 09, 2016 Visits Per Week: 10-11 Minutes/Day (M-F): 75-90 Minutes/Day (Sat/Marcano): PRN Agreement: Yes Rehab Potential: Fair Time/GCodes Start Time: 08:45 Stop Time: 09:30 Total Time Billed (hr/min): 45 Billed Treatment Time 1 visit-ADL 2 (30 min) EX 1 (15 min) DALIA ENGLE Jul 19, 2016 12:36
--- NOTE | 2016-07-19 13:49 | Physical Therapy Daily Note ---
PT Daily Note-Current Subjective Pt. states she doesnt want to work b/c she is tired. Had discussion reviewing with pt. that if she is sick, vomiting, febrile, in uncontrollable pain she can put therapies off but fatigue is expected and we need to work through it. Pt. accepted this and participated. Pt. declined using her speaking valve stating she cant breathe well with it in Pain Numeric Pain Scale: 0-No Pain Location: No Pain Reported Mental Status Patient Orientation: Confused Attachments: Oxygen, PEG Tube Transfers Functional [place] Measure 0=Not Assessed/NA 4=Minimal Assistance 1=Total Assistance 5=Supervision or Setup 2=Maximal Assistance 6=Modified [place] 3=Moderate Assistance 7=Complete IndependenceIRFPAI Quality Coding Scale 6 Independent with activity with or without an assistive device 5 Patient requires set up or clean up by helper. Patient completes activity by themselves 4 Supervision or touching assist (CGA). [place] provide cues , steadying assist 3 The helper provides less than half the effort to complete the activity 2 The helper provides more than half the effort to complete the activity 1 Dependent. The helper does all the effort to complete an activity 7 Patient refused to complete or attempt activity 9 The patient did not perform the activity before the current illness or injury 88 Not attempted due to Medical conditions or safety concerns TRFs in out bed and SPTs bed to w/c and w/c to Nustep all CGA Gait Training Gait Assistive Device: FWW standing pre gait swaying all CGA Wheelchair Training Does the Pt Use a Wheelchair?: Yes Wheelchair (FIM): 5 Wheelchair Distance: 3=150 ft (x2) Wheelchair Level of Assist: 5 (insruction needed) Type of Wheelchair: Manual Exercises Supine Ex: Bridging, Ankle pumps, Rolling, Heel Slides, Hip abd/add Supine Reps: 12 NuStep Minutes: 12 NuStep Workload: 2 Assessment Current Status: Good Progress impulsive, poor safety judgement PT Short Term Goals Short Term Goals Time Frame: Jul 26, 2016 Transfers (B,C,W/C) (FIM): 4 Gait (FIM): 4 Distance (FIM): 3=150 ft Gait Assistive Device: FWW Wheelchair Distance: 80' Stairs (FIM): 2 # of Steps: 4 Stairs Level of Assist: 4 PT Senior Living Goals Software Developer Manager Goals PT Senior Living Goals Time Frame: Aug 09, 2016 Transfers (B,C,W/C) (FIM): 6 Sit to Lying (QC): 6 Lying-Sitting on Side/Bed(QC): 6 Sit to Stand (QC): 6 Rollin Roll Left to Right (QC): 6 Chair/Zmb-bf-Knixz Xfer(QC): 6 Car Transfer (QC): 5 Does the Patient Walk: Yes Gait (FIM): 6 Gait distance (FIM): 3=150 ft Walk 10 feet (QC): 6 Walk 10ft-Uneven Surface(QC): 6 Walk 50ft with 2 Turns (QC): 6 Walk 150 ft (QC): 6 Gait Level of Assist: 6 Gait Assistive Device: FWW Stairs (FIM): 5 # of Steps: 8 1 Step (curb) (QC): 5 4 Steps (QC): 5 12 Steps (QC): 88 Stairs Level Of Assist: 5 Picking up an Object (QC): 5 PT Plan Treatment/Plan Treatment Plan: Continue Plan of Care Treatment Plan: Bed Mobility, Education, Functional Activity T[place], Functional Strength, Group Therapy (socialization, education), Gait, Safety, Therapeutic Exercise, Transfers Treatment Duration: Aug 09, 2016 Visits Per Week: 10-15 Minutes/Day (M-F): 60-90 Minutes/Day (Sat/Marcano): prn Safety Risks/Education Patient Education: Gait Training, Transfer Techniques, Correct Positioning, W/ C Management, Disease Process, Safety Issues Teaching Recipient: Patient Teaching Methods: Demonstration, Discussion Response to Teaching: Verbalize Understanding, Return Demonstration, Reinforcement Needed Time/GCodes Time In: 1305 Time Out: 1335 Total Billed Treatment Time: 30 Total Billed Treatment 1,FA15,EX15 G Codes Necessary: ADAMS Rubin PHYSICAL THERAPY COORDINATOR Jul 19, 2016 13:49
--- NOTE | 2016-07-19 14:19 | ST Mod Barium Swallow ---
Speech Evaluation-General Medical Diagnosis left hip fracture, ARDS, ARF Onset Date: May 04, 2016 Therapy Diagnosis Therapy Diagnosis: Moderate to Severe Pharyngo-Esophageal Dysphagia Precautions Precautions: Aspiration Precautions/Isolations: Fall Prevention, Standard Precautions Referral Referring Physician: Dr. Giuseppe Youngblood Reason for Referral: Evaluation/Treatment Modified Barium Swallow Evaluation Medical History Pertinent Medical History: DM, Fractures, Smoking Reviewed History: Yes Social History Current Living Status: Speech Mod Barium Swallow Prior Level of Function Prior to the patient's intubation event and subsequent tracheostomy placement, the patient consumed a regular diet with thin liquids at home. The patient denied swallowing difficulties with any consistency she previously consumed. Oral Motor Skills Dentition Comments: The patient is edentulous at this time. Dentures are not present for eval. Lingual Protrusion: Normal Lingual ROM: Normal Lingual Strength: Normal Velum: Normal Volitional Dry Swallow: Yes (The patient digitally occluded trach site for all swallows.) Voluntary Cough: Yes Can Clear Throat Volitionally: Yes Textures-Lateral View Lateral View Food Presentation: Honey Liquid via Spoon, Pureed Solids Oral Phase Labial Closure: No Impairment (WFL) Bolus Formation Pooling L/R: No Impairment (WFL) Bolus Formation Placement: No Impairment (WFL) Solid consistencies were not trialed at this time. A/P Lingual Propulsion: Minimal Impairment (Patient demonstrated minimally increased posterior transfer time with puree consistencies.) Lingual Movement: No Impairment (WFL) Oral Phase Residue: No Impairment (WFL) Pharyngeal Phase Swallow Response: Moderate Impairment (All material reached the laryngeal surface of the epi) Base of Tongue: Mild Impairment Epiglottic Movement: Moderate Impairment (Due to decreased hyo-laryngeal excursion, complete epiglottic inversion was not completed.) Laryngeal Elevation: Moderate Impairment Vallecular Residue: Moderate (With all consistencies tested.) Pharyngeal Wall Residue: Mild Piriform Sinus Residue: Moderate (With all consistencies tested.) Laryngeal Penetration: Moderate (Moderate to severe deep laryngeal penetration occurred with honey-thick consistencies tested during the swallow.) Aspiration Observations: Moderate (With honey-thick consistencies.) Other Pharyngeal Observations: Deep laryngeal penetration with subsequent aspiration occurred with honey-thick liquid following the swallow secondary to retrograde flow from the mid-esophageal region to the pyriform sinus region, through the interarytenoid space and into the airway. The material briefly entered the proximal airway and was expectorated into the laryngeal vestibule upon completion of the swallow. The patient was unable to clear the remaining penetrated material from the laryngeal vestibule, with residue remaining post swallow. Moderate laryngeal penetration occurred with puree consistencies during the swallow. The penetrated material remained mildly in the laryngeal vestibule following the swallow. Due to the large amount of laryngeal penetration and suspected subsequent aspiration, bolus trials were ceased at this time. Esophageal Phase Peristalsis: Moderate A/P Esophageal Propulsion Time: Greater Than 5 Seconds Abnormal Other Esophageal Observations: Reflux (Moderate retrograde flow of honey-thick liquid material was visualized through the cricopharyngeal region and into the pyriform sinus region.) Performed-A/P View Not Applicable/Performed Summary/Impressions The patient demonstrated moderate to severe pharyngoesophageal dysphagia characterized by decreased base of tongue retraction, reduced pharyngeal contractions, decreased hyo-laryngeal excursion resulting in minimal epiglottic inversion, reduced sensation and protection of the airway in the presence of bolus material, and decreased esophageal motility. The patient remains at risk for aspiration with any PO consistencies at this time. 1. The patient should remain NPO with primary nutrition, hydration, and medication received via PEJ tube. 2. Therapeutic trials of puree consistency (two to three teaspoons) with speech pathology, only. 3. Frequent, consistent oral care to reduce the transfer of oral bacteria to the lungs should aspiration of secretions occur. 4. Consider further esophageal evaluation, such as an EGD, due to the patient's demonstrated impaired esophageal motility and presence of aspiration. 5. Continue dysphagia strengthening exercises, as directed. Speech Short Term Goals Short Term Goals Short Term Goals 1. The patient will tolerate trials of the least restrictive diet without signs/ symptoms of aspiration or laryngeal penetration. 2. The patient will participate in a video swallow to definitely rule out aspiration. 3. The patient will demonstrate swallowing strategies, independently. 4. The patient will demonstrate base of tongue, pharyngeal, and laryngeal elevation exercises with 80% accuracy and mild clinician cueing. 5. The patient will demonstrate resonant voice techniques to aid in vocalizations with 80% accuracy and moderate clinician verbal cueing and direct modeling. Time Frame-STG: Two Weeks Speech Jail Goals Associate Professor Of Kinesiology Goals 1. The patient will tolerate the least restrictive diet without signs/symptoms of aspiration or laryngeal penetration. 2. The patient will demonstrate reduced laryngeal tension for increase use of audible voice. Time Frame: Eight Weeks Comprehension: 6 Expression: 6 Social Interaction: 6 Problem Solvin Memory: 6 Speech-Plan Treatment Plan Speech Therapy Treatment Plan: Continue Plan of Care Treatment Duration: Sep 07, 2016 # of days/week Four to Five Visits Per Week: Four to Five Minutes/Day (M-F): 30 Rehab Potential: Fair Safety Risks/Education Teaching Recipient: Patient Teaching Methods: Discussion Response to Teaching: Verbalize Understanding, Reinforcement Needed Education Topics Provided: Swallowing Recommendations, Results Time Speech Therapy Time In: 09:45 Speech Therapy Time Out: 10:15 Total Billed Time: 30 Billed Treatment Time BRIANA Hernandez AUNG FRAGA Jul 19, 2016 14:19
--- NOTE | 2016-07-19 15:14 | Occupational Ther Daily Note ---
OT Current Status-Daily Note Subjective Pt alert, lying in bed. Pt requested to stay in room for afternoon treatment. Pt agreed to therapy. No c/o pain at this time. Mental Status/Objective Patient Orientation: Person, Place, Time, Situation Functional [place] Measure 0=Not Assessed/NA 4=Minimal Assistance 1=Total Assistance 5=Supervision or Setup 2=Maximal Assistance 6=Modified [place] 3=Moderate Assistance 7=Complete [place] Attachments: IV ADL-Treatment Functional [place] Measure 0=Not Assessed/NA 4=Minimal Assistance 1=Total Assistance 5=Supervision or Setup 2=Maximal Assistance 6=Modified [place] 3=Moderate Assistance 7=Complete IndependenceIRFPAI Quality Coding Scale 6 Independent with activity with or without an assistive device 5 Patient requires set up or clean up by helper. Patient completes activity by themselves 4 Supervision or touching assist (CGA). [place] provide cues , steadying assist 3 The helper provides less than half the effort to complete the activity 2 The helper provides more than half the effort to complete the activity 1 Dependent. The helper does all the effort to complete an activity 7 Patient refused to complete or attempt activity 9 The patient did not perform the activity before the current illness or injury 88 Not attempted due to Medical conditions or safety concerns Other Treatment Pt completed resistive clothespins with B hands 2x's with each hand, tolerated well. Pt then complete theraputty (medium resistance) exercises to increase pinch and grasp strength for functional tasks. Pt then demonstrated ability to complete zimmerman translation during activity to promote coordination and dexterity of fingers and hand. After therapy, pt lying in bed with call light/ phone in reach. Pt requested a nurse to come and suction her. All need met in room. OT Short Term Goals Short Term Goals Time Frame: Jul 20, 2016 Lower Body Dressing(FIM): 5 Transfers (B,C,W/C) (FIM): 4 Toilet/Commode Transfer(FIM): 4 Additional Short Term Goals: 2-Verbalize Understanding, 3-ImproveStrength/Tavares 1=Demonstrate adherence to instructed precautions during ADL tasks. 2=Patient will verbalize/demonstrate understanding of assistive devices/ modifications for ADL. 3=Patient will improve strength/tolerance for activity to enable patient to perform ADL's. OT Intermediate Goals Stencil Cutter Machine Goals Time Frame: Aug 09, 2016 Eating (FIM): 5 Eating (QC): 5 Oral Hygiene (QC): 6 Grooming(FIM): 6 Bathing(FIM): 5 Shower/Bathe Self (QC): 5 Upper Body Dressing(FIM): 6 Upper Body Dressing (QC): 6 Lower Body Dressing(FIM): 6 Lower Body Dressing (QC): 6 On/Off Footwear (QC): 6 Toileting(FIM): 6 Toileting Hygiene (QC): 6 Toilet/Commode Transfer(FIM): 6 Toilet/Commode Transfer (QC): 6 Shower Transfer(FIM): 6 Comprehension(FIM): 6 Expression (FIM): 6 Social Interaction(FIM): 6 Problem Solving(FIM): 6 Memory(FIM): 6 Improve bilat UE strength to 5/5 to help with transfers and ADLs Additional Goals: 2-Verbalize Understanding, 3-ImproveStrength/Tavares 1=Demonstrate adherence to instructed precautions during ADL tasks. 2=Patient will verbalize/demonstrate understanding of assistive devices/ modifications for ADL. 3=Patient will improve strength/tolerance for activity to enable patient to perform ADL's. OT Education/Plan Problem List/Assessment Pt would benefit from skilled OT to increase her independence in basic self care to allow her to return to son's home and decrease caregiver bruden Discharge Recommendations Plan/Recommendations: Continue POC Treatment Plan/Plan of Care Patient would benefit from OT for education, treatment and training to promote independence in ADL's, mobility, safety and/or upper extremity function for ADL' s. Plan of Care: ADL Retraining, Caregiver Training, Functional Mobility, Group Exercise/Act as Ind (education, exercise, activity tolerance, functional activities, safety), UE Funct Exercise/Act, UE Neuromus Re-Ed/Coord Treatment Duration: Aug 09, 2016 Visits Per Week: 10-11 Minutes/Day (M-F): 75-90 Minutes/Day (Sat/Marcano): PRN Agreement: Yes Rehab Potential: Fair Time/GCodes Start Time: 14:30 Stop Time: 15:00 Total Time Billed (hr/min): 30 Billed Treatment Time 1 visit-EX 2 (30 min) DALIA ENGLE Jul 19, 2016 15:14
[2016-07-19] MEDS: LORazepam 0.5 MG (ATIVAN) TABLET PEG PRN ×2 (15:26→20:45)
[2016-07-19 18:34] VITALS: BP 118/80
[2016-07-20] MEDS: inSUlin (REGULAR) HUMAN 1 UNIT/0.01 ML (CHARGE PER UNIT) SC SCH ×4 (05:38→21:00)
[2016-07-20 06:00] VITALS: BP 99/64
[2016-07-20 06:04] LABS: BASOPHILS % (AUTO) 0 % (0-10); EOSINOPHILS # (AUTO) 0.2 10^3/uL (0.0-0.3); EOSINOPHILS % (AUTO) 3 % (0-10); LYMPHOCYTES # (AUTO) 1.8 X 10^3 (1.0-4.0); LYMPHOCYTES % (AUTO) 21 % (12-44); MEAN CORPUSCULAR HEMOGLOBIN 28 PG (25-34); MEAN CORPUSCULAR HGB CONC 32 G/DL (32-36); MEAN CORPUSCULAR VOLUME 88 FL (80-99); MEAN PLATELET VOLUME 10.3 FL (7.4-10.4); MONOCYTES # (AUTO) 0.9 X 10^3 (0.0-1.0); MONOCYTES % (AUTO) 11 % (0-12); NEUTROPHILS # (AUTO) 5.6 X 10^3 (1.8-7.8); NEUTROPHILS % (AUTO) 66 % (42-75); PLATELET COUNT 472 10^3/uL (130-400); RED BLOOD COUNT 3.81 10^6/uL (4.35-5.85); RED CELL DISTRIBUTION WIDTH 16.1 % (10.0-14.5); WHITE BLOOD COUNT 8.5 10^3/uL (4.3-11.0)
--- NOTE | 2016-07-20 06:29 | Pulmonary Progress Note ---
Subjective Subjective/Events-last exam pt had barium swallow Exam Exam Vital Signs Date Time Temp Pulse Resp B/P Pulse Ox O2 Delivery O2 Flow Rate FiO2 07/20/16 02:40 6.00 28 07/19/16 20:40 Trach Collar 07/19/16 19:03 97 07/19/16 18:34 96.3 98 16 118/80 91 07/19/16 15:55 99 6.00 28 07/19/16 11:15 91 6.00 28 07/19/16 09:00 Trach Collar 07/19/16 07:07 98 6.00 28 I & O 07/20/16 07:00 Intake Total 2425 ml Balance 2425 ml General Appearance: No Apparent Distress WD/WN HEENT: Normal ENT Inspection Neck: Other (trach) Respiratory: Chest Non Tender No Accessory Muscle Use No Respiratory Distress Cardiovascular: Regular Rate, Rhythm Gastrointestinal: non tender soft Results Lab Laboratory Tests 07/20/16 05:30 Assessment/Plan Assessment/Plan Tracheostomy s/p ARDS -Pt is doing better with speaking valve Dysphagia -Pt failed barium swallow. She is high risk for aspiration. Will d/w speech therapy Clinical Quality Measures DVT/VTE Risk/Contraindication: Risk Factor Score Per Nursin RFS Level Per Nursing on Admit: 3=High AUDELIA JUSTICE DO Jul 20, 2016 06:29
[2016-07-20 06:31] LABS: ANION GAP 11 MMOL/L (5-14); BLOOD UREA NITROGEN 18 MG/DL (7-18); BUN/CREATININE RATIO 32; CALCIUM 9.6 MG/DL (8.5-10.1); CARBON DIOXIDE 27 MMOL/L (21-32); CHLORIDE 99 MMOL/L (98-107); CREATININE SERUM 0.56 MG/DL (0.60-1.30); GFR ESTIMATED > 60; GLUCOSE 176 MG/DL (70-105); POTASSIUM 4.5 MMOL/L (3.6-5.0); SODIUM 137 MMOL/L (135-145)
[2016-07-20] MEDS: RT-ALBUTEROL/IPRATROPIUM 3 ML (DUONEB) VIAL INH SCH ×4 (06:50→19:35)
--- NOTE | 2016-07-20 08:06 | Progress Note (SOAP) ---
Subjective Subjective/Events-last exam patient resting comfortably. Patient has no complaints. Patient had modified barium swallow yesterday. Results abnormal. Has disorder esophageal debility Objective Exam Vital Signs Date Time Temp Pulse Resp B/P Pulse Ox O2 Delivery O2 Flow Rate FiO2 07/20/16 06:56 96 6.00 28 07/20/16 06:00 97.5 102 22 99/64 94 Trach Collar 07/20/16 02:40 6.00 28 07/19/16 20:40 Trach Collar 07/19/16 19:03 97 07/19/16 18:34 96.3 98 16 118/80 91 07/19/16 15:55 99 6.00 28 07/19/16 11:15 91 6.00 28 07/19/16 09:00 Trach Collar I & O 07/20/16 07:00 Intake Total 2425 ml Balance 2425 ml Capillary Refill : General Appearance: No Apparent Distress WD/WN Results Lab Laboratory Tests 07/20/16 05:30 Laboratory Tests 07/19/16 11:26: Glucometer 304H 07/19/16 15:26: Glucometer 174H 07/19/16 20:54: Glucometer 261H 07/20/16 05:30: Anion Gap 11, BUN/Creatinine Ratio 32, Basophils # (Auto) 0.0, Basophils (%) ( Auto) 0, Blood Urea Nitrogen 18, Calcium Level 9.6, Carbon Dioxide Level 27, Chloride Level 99, Creatinine 0.56L, Eosinophils # (Auto) 0.2, Eosinophils (%) ( Auto) 3, Estimat Glomerular Filtration Rate > 60, Glucose Level 176H, Hematocrit 33L, Hemoglobin 10.7L, Lymphocytes # (Auto) 1.8, Lymphocytes (%) ( Auto) 21, Mean Corpuscular Hemoglobin 28, Mean Corpuscular Hemoglobin Concent 32 , Mean Corpuscular Volume 88, Mean Platelet Volume 10.3, Monocytes # (Auto) 0.9 , Monocytes (%) (Auto) 11, Neutrophils # (Auto) 5.6, Neutrophils (%) (Auto) 66, Platelet Count 472H, Potassium Level 4.5, Red Blood Count 3.81L, Red Cell Distribution Width 16.1H, Sodium Level 137, White Blood Count 8.5 07/20/16 05:31: Glucometer 166H Assessment/Plan Assessment/Plan Assess & Plan/Chief Complaint hip fracture. Perforated esophageal ulcer . Hypertension diabetes. Previous suicide attempts. Depression. . 07/16/16. Hip fracture. Perforated esophageal ulcer. Hypertension. Diabetes. Previous suicide attempts. Depression. . 07/17/16. Hip fracture. Hypertension. Diabetes. Depression Hypertension. Diabetes.. Patient doing okay today. . 07/18/16. Hip fracture hypertension. Diabetes. Patient improving. . 07/19/16 hip fracture. Diabetes. Patient feel she is improving. Patient getting around with a walker. Sugars still elevated. More levimir. . 07/20/16. Sugars better. patient failed modified barium swallow study. Has disorder esophageal mobility. Hip fracture. Perforated esophageal ulcer. Hypertension. Diagnosis/Problems: Clinical Quality Measures DVT/VTE Risk/Contraindication: Risk Factor Score Per Nursin RFS Level Per Nursing on Admit: 3=High RANDI RIBEIRO DO Jul 20, 2016 08:06
--- NOTE | 2016-07-20 08:13 | PM & R (SOAP) Progress Note ---
Subjective Subjective/Events-last exam Patient was seen in her room this AM Discussed case with RN Tube feeds switched over to Bolus Patient min assist for transfers Objective Exam Last Set of Vital Signs Vital Signs Date Time Temp Pulse Resp B/P Pulse Ox O2 Delivery O2 Flow Rate FiO2 07/20/16 06:56 96 6.00 28 07/20/16 06:00 97.5 102 22 99/64 Trach Collar Capillary Refill : I&O Intake and Output 07/20/16 00:00 Intake Total 2350 ml Balance 2350 ml Tube Feeding 1250 ml Other 1100 ml # Voids 6 General: Alert, Oriented X3, Cooperative, No Acute Distress HEENT: Atraumatic, PERRLA, EOMI, Mucous Memb Moist/[address] Neck: Other (trach) Lungs: Clear to Auscultation Heart: Regular Rate Abdomen: Normal Bowel Sounds, Soft, No Tenderness, Other (Peg tube in place) Extremities: Other (trace edema) Neuro: Other (Weakness both lower legs left >rt) Results Lab Laboratory Tests 07/17/16 11:05: Glucometer 363H 07/17/16 15:19: Glucometer 340H 07/17/16 18:07: Glucometer 194H 07/17/16 20:03: Glucometer 138H 07/18/16 06:18: Glucometer 174H 07/18/16 11:02: Glucometer 309H 07/18/16 15:50: Glucometer 247H 07/18/16 20:48: Glucometer 145H 07/19/16 05:31: Glucometer 184H 07/19/16 11:26: Glucometer 304H 07/19/16 15:26: Glucometer 174H 07/19/16 20:54: Glucometer 261H 07/20/16 05:30: Anion Gap 11, BUN/Creatinine Ratio 32, Basophils # (Auto) 0.0, Basophils (%) ( Auto) 0, Blood Urea Nitrogen 18, Calcium Level 9.6, Carbon Dioxide Level 27, Chloride Level 99, Creatinine 0.56L, Eosinophils # (Auto) 0.2, Eosinophils (%) ( Auto) 3, Estimat Glomerular Filtration Rate > 60, Glucose Level 176H, Hematocrit 33L, Hemoglobin 10.7L, Lymphocytes # (Auto) 1.8, Lymphocytes (%) ( Auto) 21, Mean Corpuscular Hemoglobin 28, Mean Corpuscular Hemoglobin Concent 32 , Mean Corpuscular Volume 88, Mean Platelet Volume 10.3, Monocytes # (Auto) 0.9 , Monocytes (%) (Auto) 11, Neutrophils # (Auto) 5.6, Neutrophils (%) (Auto) 66, Platelet Count 472H, Potassium Level 4.5, Red Blood Count 3.81L, Red Cell Distribution Width 16.1H, Sodium Level 137, White Blood Count 8.5 07/20/16 05:31: Glucometer 166H Assessment/Plan Assessment Comminuted left intertrochanteric fracture s/p repair OSH ortho S/P trach for pneumonia and ards S/P espohageal rupture and repair OSH-with hx of esophageal varices NPO status on tube feeds-MBS to be done with ST HX of substance abuse and etoh use DM meds being adjusted Plan Continue PT/OT/ST F/U with Lucy and check CXR-done Trial of capping trach-ongoing RT F/U Appreciate Dr Thorpe notes and orders Chief Medical Officer has made recs re tube feeds Discussed with RN last week Appreciate Dr Hidalgo notes and orders Trend Accuchecks and adjust meds as needed Team Conference held 07-18-16 see report for full functional update and POC and ELOS Appreciate MBS report and recs Monitor for any regurg with bolus tube feeds RAHEEM SHAW MD Jul 20, 2016 08:13
[2016-07-20] MEDS: ASPIRIN E.C. 81 MG (ECOTRIN) TAB PO SCH (08:31)
[2016-07-20] MEDS: CARVEDILOL 12.5 MG (COREG) TABLET PO SCH ×2 (08:31→21:00)
[2016-07-20] MEDS: inSUlin DETERMIR 1 UNIT/0.01 ML (LEVEMIR) CHARGE PER UNIT SQ SCH ×2 (08:32→22:00)
[2016-07-20] MEDS: ENOXAPARIN 40 MG/0.4 ML (LOVENOX) SYR SC SCH (08:32)
[2016-07-20] MEDS: NYSTATIN ORAL SUSP 5 ML UDC PO SCH ×4 (08:32→21:00)
--- NOTE | 2016-07-20 10:04 | Occupational Ther Daily Note ---
OT Current Status-Daily Note Subjective Pt. reports 7/10 pain in left hip. Notified nursing. Appearance Pt. is in bed. Agrees to shower. Mental Status/Objective Patient Orientation: Person, Place Functional [place] Measure 0=Not Assessed/NA 4=Minimal Assistance 1=Total Assistance 5=Supervision or Setup 2=Maximal Assistance 6=Modified [place] 3=Moderate Assistance 7=Complete [place] ADL-Treatment Functional [place] Measure 0=Not Assessed/NA 4=Minimal Assistance 1=Total Assistance 5=Supervision or Setup 2=Maximal Assistance 6=Modified [place] 3=Moderate Assistance 7=Complete IndependenceIRFPAI Quality Coding Scale 6 Independent with activity with or without an assistive device 5 Patient requires set up or clean up by helper. Patient completes activity by themselves 4 Supervision or touching assist (CGA). [place] provide cues , steadying assist 3 The helper provides less than half the effort to complete the activity 2 The helper provides more than half the effort to complete the activity 1 Dependent. The helper does all the effort to complete an activity 7 Patient refused to complete or attempt activity 9 The patient did not perform the activity before the current illness or injury 88 Not attempted due to Medical conditions or safety concerns Grooming (FIM): 5 (Pt. is able to comb hair after set up.) Bathing (FIM): 5 (Pt. is able to bathe with SBA all parts.) Upper Body (FIM): 5 (Dons shirt with set up.) Lower Body Dressing (FIM): 5 (Pt. is able to don brief and pants with SBA. Is able to don socks with SBA and adaptive equipment.) On/Off Footwear (QC): 5 Transfers (B, C, W/C) (FIM): 4 (Pt. is able to transfer supine-sit with sba. Transfers sit-stand and to chair with min assist. Back to bed with min assist but able to get her feet into bed with SBA.) Shower Transfer(FIM): 4 Other Treatment Pt. agrees to shower. Abdominal dressings covered with plastic to keep dry. Notified RT after shower to change trach collar. Pt. able to shower well with fatigued noted. Transferred back to bed after all ADLs. Education OT Patient Education: Correct positioning, Modified ADL techniques, Progress toward Goal/Update tx plan, Purpose of tx/functional activities, Reviewed precautions, Rehab process, Transfer techniques Teaching Recipient: Patient Teaching Methods: Demonstration, Discussion Response to Teaching: Verbalize Understanding, Return Demonstration OT Short Term Goals Short Term Goals Time Frame: Jul 20, 2016 Lower Body Dressing(FIM): 5 Transfers (B,C,W/C) (FIM): 4 Toilet/Commode Transfer(FIM): 4 Additional Short Term Goals: 2-Verbalize Understanding, 3-ImproveStrength/Tavares 1=Demonstrate adherence to instructed precautions during ADL tasks. 2=Patient will verbalize/demonstrate understanding of assistive devices/ modifications for ADL. 3=Patient will improve strength/tolerance for activity to enable patient to perform ADL's. OT Ticket Dispatcher Goals Retirement Goals Time Frame: Aug 09, 2016 Eating (FIM): 5 Eating (QC): 5 Oral Hygiene (QC): 6 Grooming(FIM): 6 Bathing(FIM): 5 Shower/Bathe Self (QC): 5 Upper Body Dressing(FIM): 6 Upper Body Dressing (QC): 6 Lower Body Dressing(FIM): 6 Lower Body Dressing (QC): 6 On/Off Footwear (QC): 6 Toileting(FIM): 6 Toileting Hygiene (QC): 6 Toilet/Commode Transfer(FIM): 6 Toilet/Commode Transfer (QC): 6 Shower Transfer(FIM): 6 Comprehension(FIM): 6 Expression (FIM): 6 Social Interaction(FIM): 6 Problem Solving(FIM): 6 Memory(FIM): 6 Improve bilat UE strength to 5/5 to help with transfers and ADLs Additional Goals: 2-Verbalize Understanding, 3-ImproveStrength/Tavares 1=Demonstrate adherence to instructed precautions during ADL tasks. 2=Patient will verbalize/demonstrate understanding of assistive devices/ modifications for ADL. 3=Patient will improve strength/tolerance for activity to enable patient to perform ADL's. OT Education/Plan Problem List/Assessment Assessment: Decreased Activ Tolerance, Decreased UE Strength, Dependent Transfers, Impaired Funct Balance, Impaired I ADL's, Impaired Self-Care Skills, Restricted Funct UE ROM Pt would benefit from skilled OT to increase her independence in basic self care to allow her to return to son's home and decrease caregiver bruden Discharge Recommendations Plan/Recommendations: Continue POC Therapy D/C Recommendations: Home w/ Family Support, Occupational Therapy Home Care, Scheduled Assistance Treatment Plan/Plan of Care Treatment,Training & Education: Yes Patient would benefit from OT for education, treatment and training to promote independence in ADL's, mobility, safety and/or upper extremity function for ADL' s. Plan of Care: ADL Retraining, Caregiver Training, Functional Mobility, Group Exercise/Act as Ind (education, exercise, activity tolerance, functional activities, safety), UE Funct Exercise/Act, UE Neuromus Re-Ed/Coord Treatment Duration: Aug 09, 2016 Visits Per Week: 10-11 Minutes/Day (M-F): 75-90 Minutes/Day (Sat/Marcano): PRN Agreement: Yes Rehab Potential: Fair Time/GCodes Start Time: 08:30 Stop Time: 09:15 Total Time Billed (hr/min): 45 Billed Treatment Time 1, ADL x 3 CORINA TREADWELL OT Jul 20, 2016 10:04
[2016-07-20] MEDS: HYDROcodone/APAP 7.5 MG/325 MG (LORTAB, LORCET PLUS) TABLET PO PRN ×3 (10:36→15:46)
--- NOTE | 2016-07-20 11:07 | Physical Therapy Daily Note ---
PT Daily Note-Current Subjective Pt in bed c/o some left hip pain at 6/10. Requests pain meds and given by nursing. Pain Numeric Pain Scale: 5-Moderate Pain Location: Left Location Body Site: Hip Pain Description: Ache Mental Status Patient Orientation: Normal For Age pt. appears annoyed that she has to have therapy again, this FINAL INSTALLER INSPECTOR explaining again that 3 hr requirement and that she should try even when fatigued Transfers Functional [place] Measure 0=Not Assessed/NA 4=Minimal Assistance 1=Total Assistance 5=Supervision or Setup 2=Maximal Assistance 6=Modified [place] 3=Moderate Assistance 7=Complete IndependenceIRFPAI Quality Coding Scale 6 Independent with activity with or without an assistive device 5 Patient requires set up or clean up by helper. Patient completes activity by themselves 4 Supervision or touching assist (CGA). [place] provide cues , steadying assist 3 The helper provides less than half the effort to complete the activity 2 The helper provides more than half the effort to complete the activity 1 Dependent. The helper does all the effort to complete an activity 7 Patient refused to complete or attempt activity 9 The patient did not perform the activity before the current illness or injury 88 Not attempted due to Medical conditions or safety concerns Transfers (B, C, W/C) (FIM): 4 Scootin Rollin Supine to/from Sit: 5 Sit to/from Stand: 4 Bed to/from Chair: 4 SPTs wit FWW CGA to Min Gait Training Does the Patient Walk?: Yes Distance (FIM): 1=up to 49 ft (6ftx3) Gait Level of Assist: 3 Gait Persons Needed: 1 Gait Assistive Device: Parallel Bars poor control, impulsive Wheelchair Training Does the Pt Use a Wheelchair?: Yes Wheelchair (FIM): 2 Wheelchair Distance: 2=271-19 ft (100x2) Wheelchair Level of Assist: 4 Exercises Supine Ex: Bridging, Ankle pumps, Quad Set, Rolling, Glut sets, Heel Slides, Short Arc Quads, Scooting, Straight leg raise, Hip abd/add Supine Reps: 15 Assessment Current Status: Good Progress fatigued quickly , in bed after Rx, naik at hand PT Short Term Goals Short Term Goals Time Frame: Jul 26, 2016 Transfers (B,C,W/C) (FIM): 4 Gait (FIM): 4 Distance (FIM): 3=150 ft Gait Assistive Device: FWW Wheelchair Distance: 80' Stairs (FIM): 2 # of Steps: 4 Stairs Level of Assist: 4 PT Pump Operator Goals Pump Operator Goals PT Retirement Goals Time Frame: Aug 09, 2016 Transfers (B,C,W/C) (FIM): 6 Sit to Lying (QC): 6 Lying-Sitting on Side/Bed(QC): 6 Sit to Stand (QC): 6 Rollin Roll Left to Right (QC): 6 Chair/Vic-kg-Kgvxi Xfer(QC): 6 Car Transfer (QC): 5 Does the Patient Walk: Yes Gait (FIM): 6 Gait distance (FIM): 3=150 ft Walk 10 feet (QC): 6 Walk 10ft-Uneven Surface(QC): 6 Walk 50ft with 2 Turns (QC): 6 Walk 150 ft (QC): 6 Gait Level of Assist: 6 Gait Assistive Device: FWW Stairs (FIM): 5 # of Steps: 8 1 Step (curb) (QC): 5 4 Steps (QC): 5 12 Steps (QC): 88 Stairs Level Of Assist: 5 Picking up an Object (QC): 5 PT Plan Treatment/Plan Treatment Plan: Continue Plan of Care Treatment Plan: Bed Mobility, Education, Functional Activity Tavares, Functional Strength, Group Therapy (socialization, education), Gait, Safety, Therapeutic Exercise, Transfers Treatment Duration: Aug 09, 2016 Visits Per Week: 10-15 Minutes/Day (M-F): 60-90 Minutes/Day (Sat/Marcano): prn Safety Risks/Education Patient Education: Gait Training, Transfer Techniques, Correct Positioning, W/ C Management, Disease Process, Safety Issues Teaching Recipient: Patient Teaching Methods: Demonstration, Discussion Response to Teaching: Verbalize Understanding, Return Demonstration, Reinforcement Needed Time/GCodes Time In: 1015 Time Out: 1100 Total Billed Treatment Time: 45 Total Billed Treatment 1,GT15,WCH 15,EX15 G Codes Necessary: ADAMS Rubin FINAL INSTALLER INSPECTOR Jul 20, 2016 11:07
--- NOTE | 2016-07-20 11:30 | Speech Therapy Daily Note ---
Speech Daily Progress Note Subjective The patient was seated upright in bed upon entrance. The patient greeted the clinician appropriately and agreed to participate in dysphagia therapy on this date. Objective Dysphagia Exercises: Dysphagia exercises were continued on this date. The patient demonstrated fair to good accuracy with dysphagia exercises following direct modeling by the clinician. The clinician required breaks between exercises for clearance of hypopharyngeal secretions (expectorated orally with digital occlusion of trach). - Extensive education was provided by the clinician regarding the patient's recent video swallow evaluation. The patient verbalized comprehension and denied additional questions at this time. Assessment Assessment Current Status: Fair Progress Treatment Plan Continue Plan of Care Communication Comprehension: 5 Expression: 5 Social Cognition Social Interaction: 5 Problem Solvin Memory: 4 Speech Short Term Goals Short Term Goals Short Term Goals 1. The patient will tolerate trials of the least restrictive diet without signs/ symptoms of aspiration or laryngeal penetration. 2. The patient will participate in a video swallow to definitely rule out aspiration. 3. The patient will demonstrate swallowing strategies, independently. 4. The patient will demonstrate base of tongue, pharyngeal, and laryngeal elevation exercises with 80% accuracy and mild clinician cueing. 5. The patient will demonstrate resonant voice techniques to aid in vocalizations with 80% accuracy and moderate clinician verbal cueing and direct modeling. Time Frame-STG: Two Weeks Speech Customer Operations Representative Goals Chcf Goals 1. The patient will tolerate the least restrictive diet without signs/symptoms of aspiration or laryngeal penetration. 2. The patient will demonstrate reduced laryngeal tension for increase use of audible voice. Time Frame: Eight Weeks Comprehension: 6 Expression: 6 Social Interaction: 6 Problem Solvin Memory: 6 Speech-Plan Treatment Plan Speech Therapy Treatment Plan: Continue Plan of Care Treatment Duration: Sep 07, 2016 # of days/week Four to Five Visits Per Week: Four to Five Minutes/Day (M-F): 30 Rehab Potential: Fair Safety Risks/Education Teaching Recipient: Patient Teaching Methods: Demonstration, Handout, Discussion Response to Teaching: Verbalize Understanding, Return Demonstration, Reinforcement Needed Education Topics Provided: Video Swallow Results, Recommendations, Swallowing Exercises Time Speech Therapy Time In: 11:00 Speech Therapy Time Out: 11:30 Total Billed Time: 30 Billed Treatment Time ALEJANDRA Hernandez ELIZABETH Jul 20, 2016 11:30
--- NOTE | 2016-07-20 14:59 | Therapy Group Daily Note ---
Therapy Daily Group Note Other/Notes Pt transported to OT/PT group via w/c. Pt actively participated in group. Group consisted of introductions (name, place living, what do you do to exercise ), socialization, ARU description and expectations, arthritis education, education on how exercise can alleviate pain, UE/LE seated exercises and recall/ memory activity. Pt unable to speak at this time so pt was able to write thoughts down and give to ARU staff to read. Pt was able to contribute to discussions for arthritis and pain. Pt tolerated UE/LE seated exercises well. Pt was able to complete the recall/memory activity without difficulty. After therapy, pt transported room via w/c and laid down in bed with call light/phone in reach. All needs met in room. Start Time: 13:00 Stop Time: 14:30 Total Billed Treatment Time: 90 Total Billed Treatment 1-GRP DALIA ENGLE Jul 20, 2016 14:58
[2016-07-20] MEDS: CYCLOBENZAPRINE 10 MG (FLEXERIL) TAB PO PRN ×2 (15:46→23:16)
[2016-07-20 18:30] VITALS: BP 111/76
[2016-07-20] MEDS: LORazepam 0.5 MG (ATIVAN) TABLET PEG PRN (21:26)
[2016-07-21 06:00] VITALS: BP 104/71
[2016-07-21] MEDS: inSUlin (REGULAR) HUMAN 1 UNIT/0.01 ML (CHARGE PER UNIT) SC SCH ×4 (06:00→20:01)
[2016-07-21] MEDS: RT-ALBUTEROL/IPRATROPIUM 3 ML (DUONEB) VIAL INH SCH ×4 (07:13→19:10)
[2016-07-21] MEDS: CARVEDILOL 12.5 MG (COREG) TABLET PO SCH ×2 (09:57→20:00)
[2016-07-21] MEDS: NYSTATIN ORAL SUSP 5 ML UDC PO SCH ×4 (09:57→20:00)
[2016-07-21] MEDS: ASPIRIN E.C. 81 MG (ECOTRIN) TAB PO SCH (09:57)
[2016-07-21] MEDS: ENOXAPARIN 40 MG/0.4 ML (LOVENOX) SYR SC SCH (09:58)
[2016-07-21] MEDS: inSUlin DETERMIR 1 UNIT/0.01 ML (LEVEMIR) CHARGE PER UNIT SQ SCH ×2 (09:58→20:00)
[2016-07-21] MEDS: HYDROcodone/APAP 7.5 MG/325 MG (LORTAB, LORCET PLUS) TABLET PO PRN ×3 (11:39→23:12)
--- NOTE | 2016-07-21 12:25 | Physical Therapy Daily Note ---
PT Daily Note-Current Subjective Pt initially refused therapy. Finally agreed to supine ex. Transfers Functional [place] Measure 0=Not Assessed/NA 4=Minimal Assistance 1=Total Assistance 5=Supervision or Setup 2=Maximal Assistance 6=Modified [place] 3=Moderate Assistance 7=Complete IndependenceIRFPAI Quality Coding Scale 6 Independent with activity with or without an assistive device 5 Patient requires set up or clean up by helper. Patient completes activity by themselves 4 Supervision or touching assist (CGA). [place] provide cues , steadying assist 3 The helper provides less than half the effort to complete the activity 2 The helper provides more than half the effort to complete the activity 1 Dependent. The helper does all the effort to complete an activity 7 Patient refused to complete or attempt activity 9 The patient did not perform the activity before the current illness or injury 88 Not attempted due to Medical conditions or safety concerns Exercises Supine Ex: LE Protocol Supine Reps: 20 Assessment No issues with supine exercises. Attempted to convince pt to get up and stand, but pt again refused. PT Short Term Goals Short Term Goals Time Frame: Jul 26, 2016 Transfers (B,C,W/C) (FIM): 4 Gait (FIM): 4 Distance (FIM): 3=150 ft Gait Assistive Device: FWW Wheelchair Distance: 80' Stairs (FIM): 2 # of Steps: 4 Stairs Level of Assist: 4 PT Long-Term Goals Long-Term Goals PT Loan Review Officer Goals Time Frame: Aug 09, 2016 Transfers (B,C,W/C) (FIM): 6 Sit to Lying (QC): 6 Lying-Sitting on Side/Bed(QC): 6 Sit to Stand (QC): 6 Rollin Roll Left to Right (QC): 6 Chair/Eec-uc-Fppwf Xfer(QC): 6 Car Transfer (QC): 5 Does the Patient Walk: Yes Gait (FIM): 6 Gait distance (FIM): 3=150 ft Walk 10 feet (QC): 6 Walk 10ft-Uneven Surface(QC): 6 Walk 50ft with 2 Turns (QC): 6 Walk 150 ft (QC): 6 Gait Level of Assist: 6 Gait Assistive Device: FWW Stairs (FIM): 5 # of Steps: 8 1 Step (curb) (QC): 5 4 Steps (QC): 5 12 Steps (QC): 88 Stairs Level Of Assist: 5 Picking up an Object (QC): 5 PT Plan Treatment/Plan Treatment Plan: Continue Plan of Care Treatment Plan: Bed Mobility, Education, Functional Activity Tavares, Functional Strength, Group Therapy (socialization, education), Gait, Safety, Therapeutic Exercise, Transfers Treatment Duration: Aug 09, 2016 Visits Per Week: 10-15 Minutes/Day (M-F): 60-90 Minutes/Day (Sat/Marcano): prn Time/GCodes Time In: 1100 Time Out: 1115 Total Billed Treatment Time: 15 Total Billed Treatment 1, ex 15' KATHERYN VAUGHN PT Jul 21, 2016 12:25
[2016-07-21] MEDS: CYCLOBENZAPRINE 10 MG (FLEXERIL) TAB PO PRN ×2 (15:11→23:12)
[2016-07-21 18:18] VITALS: BP 116/69
[2016-07-21] MEDS ORDERED: WATER (STERILE) FOR INJECTION 0 ML ONE (19:10)
[2016-07-21] MEDS: LORazepam 0.5 MG (ATIVAN) TABLET PEG PRN (20:00)
[2016-07-22] MEDS: LORazepam 0.5 MG (ATIVAN) TABLET PEG PRN ×3 (00:22→20:48)
[2016-07-22 06:00] VITALS: BP 108/71
[2016-07-22] MEDS: inSUlin (REGULAR) HUMAN 1 UNIT/0.01 ML (CHARGE PER UNIT) SC SCH ×4 (06:00→20:49)
[2016-07-22] MEDS: RT-ALBUTEROL/IPRATROPIUM 3 ML (DUONEB) VIAL INH SCH ×4 (07:56→20:23)
[2016-07-22] MEDS: CARVEDILOL 12.5 MG (COREG) TABLET PO SCH ×2 (09:21→20:48)
[2016-07-22] MEDS: ENOXAPARIN 40 MG/0.4 ML (LOVENOX) SYR SC SCH (09:21)
[2016-07-22] MEDS: ASPIRIN E.C. 81 MG (ECOTRIN) TAB PO SCH (09:21)
[2016-07-22] MEDS: NYSTATIN ORAL SUSP 5 ML UDC PO SCH ×4 (09:21→20:48)
[2016-07-22] MEDS: inSUlin DETERMIR 1 UNIT/0.01 ML (LEVEMIR) CHARGE PER UNIT SQ SCH ×2 (09:22→20:49)
[2016-07-22] MEDS: HYDROcodone/APAP 7.5 MG/325 MG (LORTAB, LORCET PLUS) TABLET PO PRN ×3 (13:07→22:00)
[2016-07-22] MEDS ORDERED: inSUlin (REGULAR) HUMAN 1 UNIT/0.01 ML (CHARGE PER UNIT) SC ONE (16:15)
[2016-07-22 18:00] VITALS: BP 115/76
[2016-07-22] MEDS: CYCLOBENZAPRINE 10 MG (FLEXERIL) TAB PO PRN (20:48)
[2016-07-23 05:54] VITALS: BP 112/82
[2016-07-23] MEDS: inSUlin (REGULAR) HUMAN 1 UNIT/0.01 ML (CHARGE PER UNIT) SC SCH ×4 (06:00→20:50)
--- NOTE | 2016-07-23 07:17 | Pulmonary Progress Note ---
Subjective Subjective/Events-last exam no other complications noted. Exam Exam Vital Signs Date Time Temp Pulse Resp B/P Pulse Ox O2 Delivery O2 Flow Rate FiO2 07/23/16 05:54 97.4 92 20 112/82 98 Trach Collar 6.00 07/22/16 21:00 Trach Collar 4.00 07/22/16 20:23 97 6.00 28 07/22/16 18:00 96.3 96 22 115/76 98 Trach Collar 6.00 07/22/16 15:40 97 6.00 28 07/22/16 10:50 90 07/22/16 08:33 Trach Collar 4.00 07/22/16 08:00 95 6.00 28 I & O 07/23/16 07:00 Intake Total 2470 ml Balance 2470 ml General Appearance: No Apparent Distress WD/WN HEENT: Normal ENT Inspection Neck: Other (trach) Respiratory: Chest Non Tender No Accessory Muscle Use No Respiratory Distress Cardiovascular: Regular Rate, Rhythm Gastrointestinal: non tender soft Assessment/Plan Assessment/Plan Tracheostomy s/p ARDS -Pt is doing better with speaking valve Dysphagia - high risk for aspiration -Pt failed barium swallow. She is high risk for aspiration. Will d/w speech therapy Clinical Quality Measures DVT/VTE Risk/Contraindication: Risk Factor Score Per Nursin RFS Level Per Nursing on Admit: 3=High AUDELIA JUSTICE DO Jul 23, 2016 07:17
[2016-07-23] MEDS: RT-ALBUTEROL/IPRATROPIUM 3 ML (DUONEB) VIAL INH SCH ×4 (07:27→21:42)
--- NOTE | 2016-07-23 08:46 | Progress Note (SOAP) ---
Subjective Subjective/Events-last exam patient states she's feeling better. Patient has trach. Patient speaking better and latter. Patient failure to swallowing study. Hip fracture Objective Exam Vital Signs Date Time Temp Pulse Resp B/P Pulse Ox O2 Delivery O2 Flow Rate FiO2 07/23/16 07:27 98 6.00 28 07/23/16 05:54 97.4 92 20 112/82 98 Trach Collar 6.00 07/22/16 21:00 Trach Collar 4.00 07/22/16 20:23 97 6.00 28 07/22/16 18:00 96.3 96 22 115/76 98 Trach Collar 6.00 07/22/16 15:40 97 6.00 28 07/22/16 10:50 90 I & O 07/23/16 07:00 Intake Total 2470 ml Balance 2470 ml Capillary Refill : General Appearance: No Apparent Distress WD/WN Neck: Other (trach) Respiratory: No Accessory Muscle Use No Respiratory Distress Cardiovascular: Regular Rate, Rhythm No Murmur Results Lab Laboratory Tests 07/22/16 10:48: Glucometer 209H 07/22/16 15:24: Glucometer 427*H 07/22/16 20:08: Glucometer 261H 07/23/16 06:00: Glucometer 82 Assessment/Plan Assessment/Plan Assess & Plan/Chief Complaint hip fracture. Perforated esophageal ulcer . Hypertension diabetes. Previous suicide attempts. Depression. . 07/16/16. Hip fracture. Perforated esophageal ulcer. Hypertension. Diabetes. Previous suicide attempts. Depression. . 07/17/16. Hip fracture. Hypertension. Diabetes. Depression Hypertension. Diabetes.. Patient doing okay today. . 07/18/16. Hip fracture hypertension. Diabetes. Patient improving. . 07/19/16 hip fracture. Diabetes. Patient feel she is improving. Patient getting around with a walker. Sugars still elevated. More levimir. . 07/20/16. Sugars better. patient failed modified barium swallow study. Has disorder esophageal mobility. Hip fracture. Perforated esophageal ulcer. Hypertension.. . 07/23/16. Hip fracture. Perforated esophageal ulcer. Hypertension. Diabetes. Doing better. Previous suicide attempts. Diagnosis/Problems: Clinical Quality Measures DVT/VTE Risk/Contraindication: Risk Factor Score Per Nursin RFS Level Per Nursing on Admit: 3=High RANDI RIBEIRO DO Jul 23, 2016 08:46
[2016-07-23] MEDS: NYSTATIN ORAL SUSP 5 ML UDC PO SCH ×4 (08:47→20:33)
[2016-07-23] MEDS: inSUlin DETERMIR 1 UNIT/0.01 ML (LEVEMIR) CHARGE PER UNIT SQ SCH ×2 (08:47→20:51)
[2016-07-23] MEDS: ASPIRIN E.C. 81 MG (ECOTRIN) TAB PO SCH (08:48)
[2016-07-23] MEDS: ENOXAPARIN 40 MG/0.4 ML (LOVENOX) SYR SC SCH (08:48)
[2016-07-23] MEDS: CARVEDILOL 12.5 MG (COREG) TABLET PO SCH ×2 (08:48→20:33)
--- NOTE | 2016-07-23 09:46 | Occupational Ther Daily Note ---
OT Current Status-Daily Note Subjective Pt seen in room, up in bed, agreeable to OT. No pain mentioned Appearance Alert, cooperative Mental Status/Objective Functional [place] Measure 0=Not Assessed/NA 4=Minimal Assistance 1=Total Assistance 5=Supervision or Setup 2=Maximal Assistance 6=Modified [place] 3=Moderate Assistance 7=Complete [place] Attachments: Central Line, Drains, Oxygen, PEG Tube ADL-Treatment Pt was incontinent of urine in her paper briefs Functional [place] Measure 0=Not Assessed/NA 4=Minimal Assistance 1=Total Assistance 5=Supervision or Setup 2=Maximal Assistance 6=Modified [place] 3=Moderate Assistance 7=Complete IndependenceIRFPAI Quality Coding Scale 6 Independent with activity with or without an assistive device 5 Patient requires set up or clean up by helper. Patient completes activity by themselves 4 Supervision or touching assist (CGA). [place] provide cues , steadying assist 3 The helper provides less than half the effort to complete the activity 2 The helper provides more than half the effort to complete the activity 1 Dependent. The helper does all the effort to complete an activity 7 Patient refused to complete or attempt activity 9 The patient did not perform the activity before the current illness or injury 88 Not attempted due to Medical conditions or safety concerns Eating (FIM): 0 (Continues NPO. Failed swallow study) Grooming (FIM): 5 (Combed hair setup. Cleaned mouth with swab. No teeth. Washed face and hands with setup) Bathing (FIM): 5 (Washed and dried all parts with setup, sponge bath. Stood SBA during bath) Upper Body (FIM): 5 (Setup to don shirt and doff gown) Lower Body Dressing (FIM): 5 (Setup. Pt education use of dressing stick and mod technique for donning pants and brief. Pt recalled educ for donning slipper sock. Stood SBA, FWW to pull pants up) On/Off Footwear (QC): 5 (SOck aid, setup) She is interested in trying out transfer tub bench to use with bathtub at home ( may have difficulty stepping in and out of tub) Other Treatment Pt did 12 reps bilat UE exercise with yellow theraband, working on shoulders and elbows, focusing on exercises needed for safe sit to stand from surfaces. Pt did 2 sets, able to track reps herself and switch sides without assistance. Education OT Patient Education: Exercise program, Modified ADL techniques, Progress toward Goal/Update tx plan, Use of adapted equipment Teaching Recipient: Patient Teaching Methods: Demonstration, Discussion Response to Teaching: Return Demonstration OT Short Term Goals Short Term Goals Time Frame: Jul 20, 2016 Lower Body Dressing(FIM): 5 Transfers (B,C,W/C) (FIM): 4 Toilet/Commode Transfer(FIM): 4 Additional Short Term Goals: 2-Verbalize Understanding, 3-ImproveStrength/Tavares 1=Demonstrate adherence to instructed precautions during ADL tasks. 2=Patient will verbalize/demonstrate understanding of assistive devices/ modifications for ADL. 3=Patient will improve strength/tolerance for activity to enable patient to perform ADL's. OT Carbon Capture Power Plant Engineer Goals Longterm Goals Time Frame: Aug 09, 2016 Eating (FIM): 5 Eating (QC): 5 Oral Hygiene (QC): 6 Grooming(FIM): 6 Bathing(FIM): 5 Shower/Bathe Self (QC): 5 Upper Body Dressing(FIM): 6 Upper Body Dressing (QC): 6 Lower Body Dressing(FIM): 6 Lower Body Dressing (QC): 6 On/Off Footwear (QC): 6 Toileting(FIM): 6 Toileting Hygiene (QC): 6 Toilet/Commode Transfer(FIM): 6 Toilet/Commode Transfer (QC): 6 Shower Transfer(FIM): 6 Comprehension(FIM): 6 Expression (FIM): 6 Social Interaction(FIM): 6 Problem Solving(FIM): 6 Memory(FIM): 6 Improve bilat UE strength to 5/5 to help with transfers and ADLs Additional Goals: 2-Verbalize Understanding, 3-ImproveStrength/Tavares 1=Demonstrate adherence to instructed precautions during ADL tasks. 2=Patient will verbalize/demonstrate understanding of assistive devices/ modifications for ADL. 3=Patient will improve strength/tolerance for activity to enable patient to perform ADL's. OT Education/Plan Problem List/Assessment Pt would benefit from skilled OT to increase her independence in basic self care to allow her to return to son's home and decrease caregiver bruden Discharge Recommendations Plan/Recommendations: Continue POC Treatment Plan/Plan of Care Patient would benefit from OT for education, treatment and training to promote independence in ADL's, mobility, safety and/or upper extremity function for ADL' s. Plan of Care: ADL Retraining, Caregiver Training, Functional Mobility, Group Exercise/Act as Ind (education, exercise, activity tolerance, functional activities, safety), UE Funct Exercise/Act, UE Neuromus Re-Ed/Coord Treatment Duration: Aug 09, 2016 Visits Per Week: 10-11 Minutes/Day (M-F): 75-90 Minutes/Day (Sat/Marcano): PRN Agreement: Yes Rehab Potential: Fair Time/GCodes Start Time: 08:55 Stop Time: 09:30 Total Time Billed (hr/min): 35 Billed Treatment Time visit, 20 minutes ADL, 15 minutes exercise WARD PARISI OT Jul 23, 2016 09:45
[2016-07-23] MEDS: HYDROcodone/APAP 7.5 MG/325 MG (LORTAB, LORCET PLUS) TABLET PO PRN ×4 (10:15→20:33)
--- NOTE | 2016-07-23 10:29 | Physical Therapy Daily Note ---
PT Daily Note-Current Subjective Pt. agreeable to Rx. c/o during Rx that she had pain in left hip at 7/10 and requested pain meds. Pt. also c/o some SOB with when laying down with 2-3 pillows for ther ex on mat in gym Pain Numeric Pain Scale: 7 Location: Right Location Body Site: Hip Pain Description: Ache Mental Status pt. is impulsive and begins to TRF without gait belt or FWW near her and this DRUM TENDER across the room. Transfers Functional [place] Measure 0=Not Assessed/NA 4=Minimal Assistance 1=Total Assistance 5=Supervision or Setup 2=Maximal Assistance 6=Modified [place] 3=Moderate Assistance 7=Complete IndependenceIRFPAI Quality Coding Scale 6 Independent with activity with or without an assistive device 5 Patient requires set up or clean up by helper. Patient completes activity by themselves 4 Supervision or touching assist (CGA). [place] provide cues , steadying assist 3 The helper provides less than half the effort to complete the activity 2 The helper provides more than half the effort to complete the activity 1 Dependent. The helper does all the effort to complete an activity 7 Patient refused to complete or attempt activity 9 The patient did not perform the activity before the current illness or injury 88 Not attempted due to Medical conditions or safety concerns Transfers (B, C, W/C) (FIM): 4 Scootin Rollin Supine to/from Sit: 4 Sit to/from Stand: 4 Bed to/from Chair: 4 Pt. requested assist from sup to sit when she was feeling SOB, 2 TRFs SBA and 1 TRF with min to CGA Gait Training Does the Patient Walk?: Yes Gait (FIM): 1 Distance (FIM): 1=up to 49 ft (20ftx3) Gait Level of Assist: 4 Gait Persons Needed: 1 Gait Assistive Device: FWW poor DF, needs much skilled verbal instruction for broader LUZ and step length Wheelchair Training Does the Pt Use a Wheelchair?: Yes Wheelchair (FIM): 2 Wheelchair Distance: 3=119-66 ft Wheelchair Level of Assist: 5 Type of Wheelchair: Manual Exercises Supine Ex: Bridging, Ankle pumps, Quad Set, Rolling, Glut sets, Heel Slides, Short Arc Quads, Scooting, Straight leg raise, Hip abd/add Supine Reps: 12 Seated Therapy Exercises: Ankle pumps, Sit to stand, Long arc quads Seated Reps: 10 Assessment Current Status: Good Progress improved TRF skills and gait skills, c/o pain and SOB inhibits pts Rx tolerance PT Short Term Goals Short Term Goals Time Frame: Jul 26, 2016 Transfers (B,C,W/C) (FIM): 4 Gait (FIM): 4 Distance (FIM): 3=150 ft Gait Assistive Device: FWW Wheelchair Distance: 80' Stairs (FIM): 2 # of Steps: 4 Stairs Level of Assist: 4 PT Assisted Goals Methods Specialist Goals PT Methods Specialist Goals Time Frame: Aug 09, 2016 Transfers (B,C,W/C) (FIM): 6 Sit to Lying (QC): 6 Lying-Sitting on Side/Bed(QC): 6 Sit to Stand (QC): 6 Rollin Roll Left to Right (QC): 6 Chair/Rfx-zk-Yomcf Xfer(QC): 6 Car Transfer (QC): 5 Does the Patient Walk: Yes Gait (FIM): 6 Gait distance (FIM): 3=150 ft Walk 10 feet (QC): 6 Walk 10ft-Uneven Surface(QC): 6 Walk 50ft with 2 Turns (QC): 6 Walk 150 ft (QC): 6 Gait Level of Assist: 6 Gait Assistive Device: FWW Stairs (FIM): 5 # of Steps: 8 1 Step (curb) (QC): 5 4 Steps (QC): 5 12 Steps (QC): 88 Stairs Level Of Assist: 5 Picking up an Object (QC): 5 PT Plan Treatment/Plan Treatment Plan: Continue Plan of Care Treatment Plan: Bed Mobility, Education, Functional Activity Tavares, Functional Strength, Group Therapy (socialization, education), Gait, Safety, Therapeutic Exercise, Transfers Treatment Duration: Aug 09, 2016 Visits Per Week: 10-15 Minutes/Day (M-F): 60-90 Minutes/Day (Sat/Marcano): prn Safety Risks/Education Patient Education: Gait Training, Transfer Techniques, Issued Written HEP, Correct Positioning, W/C Management, Disease Process, Safety Issues Teaching Recipient: Patient Teaching Methods: Demonstration, Discussion Response to Teaching: Verbalize Understanding, Return Demonstration, Reinforcement Needed Time/GCodes Time In: 930 Time Out: 1030 Total Billed Treatment Time: 60 Total Billed Treatment 1,EX25,GT20,FA15 G Codes Necessary: ADAMS Rubin PTA 30, 2017 10:29
--- NOTE | 2016-07-23 11:54 | Speech Therapy Daily Note ---
Speech Daily Progress Note Subjective The patient was seated upright in bed upon entrance. The patient greeted the clinician appropriately and agreed to participate in dysphagia therapy on this date. The patient did intermittently wear [place] Valve (PMV) throughout treatment. Backflow (moderate) was noted when the patient removed the PMV. Objective Dysphagia Exercises: Dysphagia exercises were continued on this date. The patient demonstrated fair to good accuracy with dysphagia exercises following direct modeling by the clinician. The clinician required breaks between exercises for clearance of hypopharyngeal secretions (expectorated orally with digital occlusion of trach). Extensive education was provided to the patient regarding her NPO status and high risk of aspiration with oral intake of any kind (ice chips, candy, gum). The patient is allowed to continue oral swabs for moisture and may use ice water for moisture of oral swabs. Assessment Assessment Current Status: Fair Progress Treatment Plan Continue Plan of Care Communication Comprehension: 5 Expression: 5 Social Cognition Social Interaction: 4 Problem Solvin Memory: 5 Speech Short Term Goals Short Term Goals Short Term Goals 1. The patient will tolerate trials of the least restrictive diet without signs/ symptoms of aspiration or laryngeal penetration. 2. The patient will participate in a video swallow to definitely rule out aspiration. 3. The patient will demonstrate swallowing strategies, independently. 4. The patient will demonstrate base of tongue, pharyngeal, and laryngeal elevation exercises with 80% accuracy and mild clinician cueing. 5. The patient will demonstrate resonant voice techniques to aid in vocalizations with 80% accuracy and moderate clinician verbal cueing and direct modeling. Time Frame-STG: Two Weeks Speech Time Study Analyst Goals Time Study Analyst Goals 1. The patient will tolerate the least restrictive diet without signs/symptoms of aspiration or laryngeal penetration. 2. The patient will demonstrate reduced laryngeal tension for increase use of audible voice. Time Frame: Eight Weeks Comprehension: 6 Expression: 6 Social Interaction: 6 Problem Solvin Memory: 6 Speech-Plan Treatment Plan Speech Therapy Treatment Plan: Continue Plan of Care Treatment Duration: Sep 07, 2016 # of days/week Four to Five Visits Per Week: Four to Five Minutes/Day (M-F): 30 Rehab Potential: Fair Safety Risks/Education Teaching Recipient: Patient Teaching Methods: Demonstration, Discussion Response to Teaching: Verbalize Understanding, Return Demonstration, Reinforcement Needed Education Topics Provided: Dysphagia Exercises Time Speech Therapy Time In: 10:30 Speech Therapy Time Out: 11:00 Total Billed Time: 30 Billed Treatment Time 1, DYST FLAKITO,AUNG ST Jul 23, 2016 11:54
--- NOTE | 2016-07-23 14:44 | Physical Therapy Daily Note ---
PT Daily Note-Current Subjective Patient is in recliner and agrees to PT. Patient c/o 12/01 with RN issuing medication. Pain Numeric Pain Scale: 6 Location: Left Location Body Site: Hip Pain Description: Ache Mental Status Patient Orientation: Normal For Age Transfers Functional [place] Measure 0=Not Assessed/NA 4=Minimal Assistance 1=Total Assistance 5=Supervision or Setup 2=Maximal Assistance 6=Modified [place] 3=Moderate Assistance 7=Complete IndependenceIRFPAI Quality Coding Scale 6 Independent with activity with or without an assistive device 5 Patient requires set up or clean up by helper. Patient completes activity by themselves 4 Supervision or touching assist (CGA). [place] provide cues , steadying assist 3 The helper provides less than half the effort to complete the activity 2 The helper provides more than half the effort to complete the activity 1 Dependent. The helper does all the effort to complete an activity 7 Patient refused to complete or attempt activity 9 The patient did not perform the activity before the current illness or injury 88 Not attempted due to Medical conditions or safety concerns Transfers (B, C, W/C) (FIM): 4 Scootin Sit to/from Stand: 4 Sit to Stand (QC): 4 CGA for safety Gait Training Does the Patient Walk?: Yes Gait (FIM): 2 Distance (FIM): 4=122-21 ft Distance: 50' x 4 Gait Level of Assist: 4 Gait Persons Needed: 1 Gait Assistive Device: FWW functional with FWW; patient has to perform terminal knee extension to weight shift Exercises Seated Therapy Exercises: Ankle pumps, Long arc quads Seated Reps: 20 Assessment Patient improving with treatment and returned to room and is up in recliner. PT issued warm blanket to relieve left hip pain. PT Short Term Goals Short Term Goals Time Frame: Jul 26, 2016 Transfers (B,C,W/C) (FIM): 4 Gait (FIM): 4 Distance (FIM): 3=150 ft Gait Assistive Device: FWW Wheelchair Distance: 80' Stairs (FIM): 2 # of Steps: 4 Stairs Level of Assist: 4 PT Detention Goals Nuclear Auxiliary Operator Goals PT Nuclear Auxiliary Operator Goals Time Frame: Aug 09, 2016 Transfers (B,C,W/C) (FIM): 6 Sit to Lying (QC): 6 Lying-Sitting on Side/Bed(QC): 6 Sit to Stand (QC): 6 Rollin Roll Left to Right (QC): 6 Chair/Wvo-mt-Swzql Xfer(QC): 6 Car Transfer (QC): 5 Does the Patient Walk: Yes Gait (FIM): 6 Gait distance (FIM): 3=150 ft Walk 10 feet (QC): 6 Walk 10ft-Uneven Surface(QC): 6 Walk 50ft with 2 Turns (QC): 6 Walk 150 ft (QC): 6 Gait Level of Assist: 6 Gait Assistive Device: FWW Stairs (FIM): 5 # of Steps: 8 1 Step (curb) (QC): 5 4 Steps (QC): 5 12 Steps (QC): 88 Stairs Level Of Assist: 5 Picking up an Object (QC): 5 PT Plan Treatment/Plan Treatment Plan: Continue Plan of Care Treatment Plan: Bed Mobility, Education, Functional Activity Tavares, Functional Strength, Group Therapy (socialization, education), Gait, Safety, Therapeutic Exercise, Transfers Treatment Duration: Aug 09, 2016 Visits Per Week: 10-15 Minutes/Day (M-F): 60-90 Minutes/Day (Sat/Marcano): prn Time/GCodes Time In: 1350 Time Out: 1405 Total Billed Treatment Time: 15 Total Billed Treatment 1 visit FA 15 min KYA BENTLEY PT Jul 23, 2016 14:44
--- NOTE | 2016-07-23 14:46 | Occupational Ther Daily Note ---
OT Current Status-Daily Note Subjective Pt seen in room, up in recliner, agreeable to OT. No pain mentioned Appearance Alert, cooperative, impulsive and moves fast without good awareness of safely Mental Status/Objective Functional [place] Measure 0=Not Assessed/NA 4=Minimal Assistance 1=Total Assistance 5=Supervision or Setup 2=Maximal Assistance 6=Modified [place] 3=Moderate Assistance 7=Complete [place] ADL-Treatment Functional [place] Measure 0=Not Assessed/NA 4=Minimal Assistance 1=Total Assistance 5=Supervision or Setup 2=Maximal Assistance 6=Modified [place] 3=Moderate Assistance 7=Complete IndependenceIRFPAI Quality Coding Scale 6 Independent with activity with or without an assistive device 5 Patient requires set up or clean up by helper. Patient completes activity by themselves 4 Supervision or touching assist (CGA). [place] provide cues , steadying assist 3 The helper provides less than half the effort to complete the activity 2 The helper provides more than half the effort to complete the activity 1 Dependent. The helper does all the effort to complete an activity 7 Patient refused to complete or attempt activity 9 The patient did not perform the activity before the current illness or injury 88 Not attempted due to Medical conditions or safety concerns Toileting (FIM): 5 (Tall toilet, grab bar, FWW. managed clothing and hygiene) Toilet/Commode Transfer (FIM): 5 (Tall tolet, grab bar, FWW) Other Treatment Pt walked to w/c CGA, FWW and transferred, with skilled cues for safely. pt propelled herself to the gym for UE exercise.Pt did 15 minutes bilat UE exercise on arm bike, 5 minutes at 15W resistance and 10 minutes at 10W resistance (increased resistance). Pt transported back to her room to toilet. Once up in recliner, pt did 10 reps bilat UE exercise with 2# weight, working on shoulders, elbows, forearms and wrists, as needed to help push herself up for transfers. Also did 10 reps chair pushups. Pt was able to track reps herself and switch sides without difficulty. pt left up in recliner, all needs met. OT Short Term Goals Short Term Goals Time Frame: Jul 20, 2016 Lower Body Dressing(FIM): 5 Transfers (B,C,W/C) (FIM): 4 Toilet/Commode Transfer(FIM): 4 Additional Short Term Goals: 2-Verbalize Understanding, 3-ImproveStrength/Tavares 1=Demonstrate adherence to instructed precautions during ADL tasks. 2=Patient will verbalize/demonstrate understanding of assistive devices/ modifications for ADL. 3=Patient will improve strength/tolerance for activity to enable patient to perform ADL's. OT Chcf Goals Under Cutter Goals Time Frame: Aug 09, 2016 Eating (FIM): 5 Eating (QC): 5 Oral Hygiene (QC): 6 Grooming(FIM): 6 Bathing(FIM): 5 Shower/Bathe Self (QC): 5 Upper Body Dressing(FIM): 6 Upper Body Dressing (QC): 6 Lower Body Dressing(FIM): 6 Lower Body Dressing (QC): 6 On/Off Footwear (QC): 6 Toileting(FIM): 6 Toileting Hygiene (QC): 6 Toilet/Commode Transfer(FIM): 6 Toilet/Commode Transfer (QC): 6 Shower Transfer(FIM): 6 Comprehension(FIM): 6 Expression (FIM): 6 Social Interaction(FIM): 6 Problem Solving(FIM): 6 Memory(FIM): 6 Improve bilat UE strength to 5/5 to help with transfers and ADLs Additional Goals: 2-Verbalize Understanding, 3-ImproveStrength/Tavares 1=Demonstrate adherence to instructed precautions during ADL tasks. 2=Patient will verbalize/demonstrate understanding of assistive devices/ modifications for ADL. 3=Patient will improve strength/tolerance for activity to enable patient to perform ADL's. OT Education/Plan Problem List/Assessment Pt would benefit from skilled OT to increase her independence in basic self care to allow her to return to son's home and decrease caregiver bruden Discharge Recommendations Plan/Recommendations: Continue POC Treatment Plan/Plan of Care Patient would benefit from OT for education, treatment and training to promote independence in ADL's, mobility, safety and/or upper extremity function for ADL' s. Plan of Care: ADL Retraining, Caregiver Training, Functional Mobility, Group Exercise/Act as Ind (education, exercise, activity tolerance, functional activities, safety), UE Funct Exercise/Act, UE Neuromus Re-Ed/Coord Treatment Duration: Aug 09, 2016 Visits Per Week: 10-11 Minutes/Day (M-F): 75-90 Minutes/Day (Sat/Marcano): PRN Agreement: Yes Rehab Potential: Fair Time/GCodes Start Time: 12:50 Stop Time: 13:30 Total Time Billed (hr/min): 40 Billed Treatment Time visit, 40 minutes exercise WARD PARISI OT Jul 23, 2016 14:46
[2016-07-23 18:29] VITALS: BP 119/80
[2016-07-23] MEDS: LORazepam 0.5 MG (ATIVAN) TABLET PEG PRN (20:33)
[2016-07-23] MEDS: CYCLOBENZAPRINE 10 MG (FLEXERIL) TAB PO PRN (20:33)
--- NOTE | 2016-07-23 21:21 | PM & R (SOAP) Progress Note ---
Subjective Subjective/Events-last exam Patient was seen in her room this evening Patient min assist for transfers Objective Exam Last Set of Vital Signs Vital Signs Date Time Temp Pulse Resp B/P Pulse Ox O2 Delivery O2 Flow Rate FiO2 07/23/16 21:08 Trach Collar 6.00 07/23/16 18:29 95.1 89 16 119/80 100 07/23/16 15:53 28 Capillary Refill : I&O Intake and Output 07/23/16 00:00 Intake Total 2675 ml Balance 2675 ml Tube Feeding 1625 ml Other 1050 ml # Voids 10 General: Alert, Oriented X3, Cooperative, No Acute Distress HEENT: Atraumatic, PERRLA, EOMI, Mucous Memb Moist/[place] Neck: Other (trach) Lungs: Clear to Auscultation Heart: Regular Rate Abdomen: Normal Bowel Sounds, Soft, No Tenderness, Other (Peg tube in place) Extremities: Other (trace edema) Neuro: Other (Weakness both lower legs left >rt) Results Lab Laboratory Tests 07/21/16 05:51: Glucometer 80 07/21/16 11:21: Glucometer 97 07/21/16 15:44: Glucometer 220H 07/21/16 19:55: Glucometer 240H 07/22/16 05:40: Glucometer 107 07/22/16 10:48: Glucometer 209H 07/22/16 15:24: Glucometer 427*H 07/22/16 20:08: Glucometer 261H 07/23/16 06:00: Glucometer 82 07/23/16 11:09: Glucometer 68L 07/23/16 12:48: Glucometer 96 07/23/16 16:04: Glucometer 106 07/23/16 20:49: Glucometer 178H Assessment/Plan Assessment Comminuted left intertrochanteric fracture s/p repair OSH ortho S/P trach for pneumonia and ards S/P espohageal rupture and repair OSH-with hx of esophageal varices NPO status on tube feeds-MBS to be done with ST HX of substance abuse and etoh use DM meds being adjusted Plan Continue PT/OT/ST F/U with Lucy and check CXR-done Trial of capping trach-ongoing RT F/U Appreciate Dr Thorpe notes and orders Lawyer Probate has made recs re tube feeds Discussed with RN last week Appreciate Dr Hidalgo notes and orders Trend Accuchecks and adjust meds as needed Appreciate MBS report and recs Monitor for any regurg with bolus tube feeds Next Team Conference 07/25/16 RAHEEM SHAW MD Jul 23, 2016 21:21
[2016-07-24 05:07] VITALS: BP 118/80
[2016-07-24] MEDS: inSUlin (REGULAR) HUMAN 1 UNIT/0.01 ML (CHARGE PER UNIT) SC SCH ×4 (05:37→20:01)
[2016-07-24] MEDS: RT-ALBUTEROL/IPRATROPIUM 3 ML (DUONEB) VIAL INH SCH ×4 (06:44→19:25)
--- NOTE | 2016-07-24 08:16 | Progress Note (SOAP) ---
Subjective Subjective/Events-last exam patient holding her own. Hip fracture. Patient has trach. Objective Exam Vital Signs Date Time Temp Pulse Resp B/P Pulse Ox O2 Delivery O2 Flow Rate FiO2 07/24/16 06:44 99 6.00 28 07/24/16 05:07 98.0 80 21 118/80 96 Trach Collar 6.00 07/23/16 22:27 97 07/23/16 21:08 Trach Collar 6.00 07/23/16 18:29 95.1 89 16 119/80 100 Room Air 07/23/16 15:53 99 6.00 28 07/23/16 09:00 Trach Collar 6.00 I & O 07/24/16 07:00 Intake Total 1110 ml Output Total 420 ml Balance 690 ml Capillary Refill : General Appearance: No Apparent Distress WD/WN Results Lab Laboratory Tests 07/23/16 11:09: Glucometer 68L 07/23/16 12:48: Glucometer 96 07/23/16 16:04: Glucometer 106 07/23/16 20:49: Glucometer 178H 07/24/16 00:17: Glucometer 115H 07/24/16 05:31: Glucometer 63L 07/24/16 06:12: Glucometer 87 Assessment/Plan Assessment/Plan Assess & Plan/Chief Complaint hip fracture. Perforated esophageal ulcer . Hypertension diabetes. Previous suicide attempts. Depression. . 07/16/16. Hip fracture. Perforated esophageal ulcer. Hypertension. Diabetes. Previous suicide attempts. Depression. . 07/17/16. Hip fracture. Hypertension. Diabetes. Depression Hypertension. Diabetes.. Patient doing okay today. . 07/18/16. Hip fracture hypertension. Diabetes. Patient improving. . 07/19/16 hip fracture. Diabetes. Patient feel she is improving. Patient getting around with a walker. Sugars still elevated. More levimir. . 07/20/16. Sugars better. patient failed modified barium swallow study. Has disorder esophageal mobility. Hip fracture. Perforated esophageal ulcer. Hypertension.. . 07/23/16. Hip fracture. Perforated esophageal ulcer. Hypertension. Diabetes. Doing better. Previous suicide attempts.. . 07/24/16. Hip fracture area Perforated esophageal ulcer. Hypertension. Patient voices no complaints Diagnosis/Problems: Clinical Quality Measures DVT/VTE Risk/Contraindication: Risk Factor Score Per Nursin RFS Level Per Nursing on Admit: 3=High GELLENDER,RANDI A DO Jul 24, 2016 08:16
[2016-07-24] MEDS: ENOXAPARIN 40 MG/0.4 ML (LOVENOX) SYR SC SCH (08:34)
[2016-07-24] MEDS: HYDROcodone/APAP 7.5 MG/325 MG (LORTAB, LORCET PLUS) TABLET PO PRN ×3 (08:35→20:01)
[2016-07-24] MEDS: CARVEDILOL 12.5 MG (COREG) TABLET PO SCH ×2 (08:35→20:01)
[2016-07-24] MEDS: ASPIRIN E.C. 81 MG (ECOTRIN) TAB PO SCH (08:35)
[2016-07-24] MEDS: inSUlin DETERMIR 1 UNIT/0.01 ML (LEVEMIR) CHARGE PER UNIT SQ SCH ×2 (08:35→20:02)
[2016-07-24] MEDS: NYSTATIN ORAL SUSP 5 ML UDC PO SCH ×4 (08:49→20:00)
--- NOTE | 2016-07-24 09:29 | Speech Therapy Daily Note ---
Speech Daily Progress Note Subjective The patient was seated upright on the edge of bed upon entrance. The patient greeted the clinician appropriately and agreed to participate in dysphagia therapy on this date. The clinician attempted to place the [place] Valve (PMV ) throughout the session, however, the patient continued to remove the PMV due to discomfort. The patient's SpO2% remained at 98% throughout dysphagia exercises (PMV not in place). Objective Dysphagia Exercises: Dysphagia exercises were continued on this date. The patient demonstrated fair to good accuracy with dysphagia exercises following direct modeling by the clinician. The clinician required breaks between exercises for clearance of hypopharyngeal secretions (expectorated orally with digital occlusion of trach). Assessment Assessment Current Status: Fair Progress Treatment Plan Continue Plan of Care Communication Comprehension: 5 Expression: 5 Social Cognition Social Interaction: 4 Problem Solvin Memory: 4 Speech Short Term Goals Short Term Goals Short Term Goals 1. The patient will tolerate trials of the least restrictive diet without signs/ symptoms of aspiration or laryngeal penetration. 2. The patient will participate in a video swallow to definitely rule out aspiration. 3. The patient will demonstrate swallowing strategies, independently. 4. The patient will demonstrate base of tongue, pharyngeal, and laryngeal elevation exercises with 80% accuracy and mild clinician cueing. 5. The patient will demonstrate resonant voice techniques to aid in vocalizations with 80% accuracy and moderate clinician verbal cueing and direct modeling. Time Frame-STG: Two Weeks Speech Group Home Goals Supervisor Electronic Testing Goals 1. The patient will tolerate the least restrictive diet without signs/symptoms of aspiration or laryngeal penetration. 2. The patient will demonstrate reduced laryngeal tension for increase use of audible voice. Time Frame: Eight Weeks Comprehension: 6 Expression: 6 Social Interaction: 6 Problem Solvin Memory: 6 Speech-Plan Treatment Plan Speech Therapy Treatment Plan: Continue Plan of Care Treatment Duration: Sep 07, 2016 # of days/week Four to Five Visits Per Week: Four to Five Minutes/Day (M-F): 30 Rehab Potential: Fair Safety Risks/Education Teaching Recipient: Patient Teaching Methods: Demonstration, Handout, Discussion Response to Teaching: Return Demonstration, Reinforcement Needed Education Topics Provided: Dysphagia Exercises Time Speech Therapy Time In: 08:30 Speech Therapy Time Out: 09:00 Total Billed Time: 30 Billed Treatment Time ALEJANDRA Hernandez ELIZABETH Jul 24, 2016 09:29
--- NOTE | 2016-07-24 09:56 | Physical Therapy Daily Note ---
PT Daily Note-Current Subjective Pt. in bed, lights off at 9AM. Pt. states it is too early for her to get up and around. States she has never been employed and has never gotten up before 10AM. This INSPECTOR FIREARMS sharing and explaining the routines and goals of ARU and that we may not be able to wait til 10AM for start time every day. Pt. states she is a little dizzy and light headed while on her feet. This INSPECTOR FIREARMS again explains/ suggests that she might consider getting up in the chair earlier to let her brain get use to upright position after for best results ariella after superintendent terminal illness like she has had. Pt. agrees at this time. Pain Numeric Pain Scale: 0-No Pain Mental Status Attachments: Ventilator (trach) pt. is impulsive with movements, seems to have impaired judgement etc Transfers Functional [place] Measure 0=Not Assessed/NA 4=Minimal Assistance 1=Total Assistance 5=Supervision or Setup 2=Maximal Assistance 6=Modified [place] 3=Moderate Assistance 7=Complete IndependenceIRFPAI Quality Coding Scale 6 Independent with activity with or without an assistive device 5 Patient requires set up or clean up by helper. Patient completes activity by themselves 4 Supervision or touching assist (CGA). [place] provide cues , steadying assist 3 The helper provides less than half the effort to complete the activity 2 The helper provides more than half the effort to complete the activity 1 Dependent. The helper does all the effort to complete an activity 7 Patient refused to complete or attempt activity 9 The patient did not perform the activity before the current illness or injury 88 Not attempted due to Medical conditions or safety concerns Transfers (B, C, W/C) (FIM): 5 Scootin Rollin Supine to/from Sit: 5 (pt. reaches her hand and wants to be pulled up however she is able to do this SBA) Sit to/from Stand: 5 Gait Training Does the Patient Walk?: Yes Gait (FIM): 2 Distance (FIM): 5=448-05 ft (70x2,40) Gait Level of Assist: 4 (plus w/c f/u) Gait Persons Needed: 1 Gait Assistive Device: FWW poor DF, Wheelchair Training Does the Pt Use a Wheelchair?: Yes Wheelchair (FIM): 2 Wheelchair Distance: 1=740-73 ft (75ftx2) Wheelchair Level of Assist: 5 Type of Wheelchair: Manual pt. affixes brakes indep, can wheel very slowly, fatigues Exercises Supine Ex: Bridging, Ankle pumps, Quad Set, Rolling, Glut sets, Heel Slides, Short Arc Quads, Scooting, Straight leg raise, Hip abd/add Supine Reps: 15 NuStep Minutes: 8 NuStep Workload: 3 Treatments pt. in bed rolled left and right and removed old tape on brief and donned new elastic pull up brief with instruction for all Assessment Current Status: Good Progress pts. progress is limited by her impaired safety and poor judgement. Pt. voiced today she thinks she could go home right now. PT Short Term Goals Short Term Goals Time Frame: Jul 26, 2016 Transfers (B,C,W/C) (FIM): 4 Gait (FIM): 4 Distance (FIM): 3=150 ft Gait Assistive Device: FWW Wheelchair Distance: 80' Stairs (FIM): 2 # of Steps: 4 Stairs Level of Assist: 4 PT Mcc Goals Claims Service Adjustor Goals PT Claims Service Adjustor Goals Time Frame: Aug 09, 2016 Transfers (B,C,W/C) (FIM): 6 Sit to Lying (QC): 6 Lying-Sitting on Side/Bed(QC): 6 Sit to Stand (QC): 6 Rollin Roll Left to Right (QC): 6 Chair/Edk-sc-Yscmt Xfer(QC): 6 Car Transfer (QC): 5 Does the Patient Walk: Yes Gait (FIM): 6 Gait distance (FIM): 3=150 ft Walk 10 feet (QC): 6 Walk 10ft-Uneven Surface(QC): 6 Walk 50ft with 2 Turns (QC): 6 Walk 150 ft (QC): 6 Gait Level of Assist: 6 Gait Assistive Device: FWW Stairs (FIM): 5 # of Steps: 8 1 Step (curb) (QC): 5 4 Steps (QC): 5 12 Steps (QC): 88 Stairs Level Of Assist: 5 Picking up an Object (QC): 5 PT Plan Treatment/Plan Treatment Plan: Continue Plan of Care Treatment Plan: Bed Mobility, Education, Functional Activity Tavares, Functional Strength, Group Therapy (socialization, education), Gait, Safety, Therapeutic Exercise, Transfers Treatment Duration: Aug 09, 2016 Visits Per Week: 10-15 Minutes/Day (M-F): 60-90 Minutes/Day (Sat/Marcano): prn Safety Risks/Education Patient Education: Gait Training, Transfer Techniques, Correct Positioning, W/ C Management, Disease Process, Safety Issues Teaching Recipient: Patient Teaching Methods: Demonstration, Discussion Response to Teaching: Verbalize Understanding, Return Demonstration, Reinforcement Needed Time/GCodes Time In: 900 Time Out: 1000 Total Billed Treatment Time: 60 Total Billed Treatment 1,EX25m,FA20m,GT15m G Codes Necessary: ADAMS Rubin INSPECTOR FIREARMS Jul 24, 2016 09:56
--- NOTE | 2016-07-24 13:11 | Physical Therapy Daily Note ---
PT Daily Note-Current Subjective Pt. asleep upon entering and is perturbed that she was awakened. This AUTOMOTIVE PARTS COUNTERPERSON reviewed the schedule for the day on her table. Pain Comment: pt. states she is not in pain ans is not dizzy Transfers Functional [place] Measure 0=Not Assessed/NA 4=Minimal Assistance 1=Total Assistance 5=Supervision or Setup 2=Maximal Assistance 6=Modified [place] 3=Moderate Assistance 7=Complete IndependenceIRFPAI Quality Coding Scale 6 Independent with activity with or without an assistive device 5 Patient requires set up or clean up by helper. Patient completes activity by themselves 4 Supervision or touching assist (CGA). [place] provide cues , steadying assist 3 The helper provides less than half the effort to complete the activity 2 The helper provides more than half the effort to complete the activity 1 Dependent. The helper does all the effort to complete an activity 7 Patient refused to complete or attempt activity 9 The patient did not perform the activity before the current illness or injury 88 Not attempted due to Medical conditions or safety concerns all sit to stand SBA Gait Training Does the Patient Walk?: Yes Gait (FIM): 2 Distance (FIM): 7=336-25 ft (70x2) Gait Level of Assist: 4 Gait Persons Needed: 1 Gait Assistive Device: FWW pt. stood, took a hold of FWW , picked it up and turned quickly with FWW in air losing her balance to the side. This AUTOMOTIVE PARTS COUNTERPERSON again explaining safety etc. Pt. appears to ignore Exercises Seated Therapy Exercises: Ankle pumps, Sit to stand, Long arc quads, Hip flexion (right only) Seated Reps: 15 Assessment pt. is asleep at any time of day this AUTOMOTIVE PARTS COUNTERPERSON enters. Pt. is perturbed at being awakened PT Short Term Goals Short Term Goals Time Frame: Jul 26, 2016 Transfers (B,C,W/C) (FIM): 4 Gait (FIM): 4 Distance (FIM): 3=150 ft Gait Assistive Device: FWW Wheelchair Distance: 80' Stairs (FIM): 2 # of Steps: 4 Stairs Level of Assist: 4 PT Tumbler Machine Operator Helper Goals Longterm Goals PT Longterm Goals Time Frame: Aug 09, 2016 Transfers (B,C,W/C) (FIM): 6 Sit to Lying (QC): 6 Lying-Sitting on Side/Bed(QC): 6 Sit to Stand (QC): 6 Rollin Roll Left to Right (QC): 6 Chair/[id number]-[id number] Xfer(QC): 6 Car Transfer (QC): 5 Does the Patient Walk: Yes Gait (FIM): 6 Gait distance (FIM): 3=150 ft Walk 10 feet (QC): 6 Walk 10ft-Uneven Surface(QC): 6 Walk 50ft with 2 Turns (QC): 6 Walk 150 ft (QC): 6 Gait Level of Assist: 6 Gait Assistive Device: FWW Stairs (FIM): 5 # of Steps: 8 1 Step (curb) (QC): 5 4 Steps (QC): 5 12 Steps (QC): 88 Stairs Level Of Assist: 5 Picking up an Object (QC): 5 PT Plan Treatment/Plan Treatment Plan: Continue Plan of Care Treatment Plan: Bed Mobility, Education, Functional Activity Tavares, Functional Strength, Group Therapy (socialization, education), Gait, Safety, Therapeutic Exercise, Transfers Treatment Duration: Aug 09, 2016 Visits Per Week: 10-15 Minutes/Day (M-F): 60-90 Minutes/Day (Sat/Marcano): prn Safety Risks/Education Patient Education: Gait Training, Transfer Techniques, Correct Positioning, Safety Issues Teaching Recipient: Patient Teaching Methods: Demonstration, Discussion Response to Teaching: Verbalize Understanding, Return Demonstration, Reinforcement Needed Time/GCodes Time In: 1245 Time Out: 1300 Total Billed Treatment Time: 15 Total Billed Treatment 1,GT15m G Codes Necessary: ADAMS Rubin AUTOMOTIVE PARTS COUNTERPERSON Jul 24, 2016 13:10
--- NOTE | 2016-07-24 13:25 | Occupational Ther Daily Note ---
OT Current Status-Daily Note Subjective Pt seen in room, up in recliner, agreeable to OT, after PT. No pain mentioned Appearance Alert, cooperative Mental Status/Objective Functional [place] Measure 0=Not Assessed/NA 4=Minimal Assistance 1=Total Assistance 5=Supervision or Setup 2=Maximal Assistance 6=Modified [place] 3=Moderate Assistance 7=Complete [place] ADL-Treatment Functional [place] Measure 0=Not Assessed/NA 4=Minimal Assistance 1=Total Assistance 5=Supervision or Setup 2=Maximal Assistance 6=Modified [place] 3=Moderate Assistance 7=Complete IndependenceIRFPAI Quality Coding Scale 6 Independent with activity with or without an assistive device 5 Patient requires set up or clean up by helper. Patient completes activity by themselves 4 Supervision or touching assist (CGA). [place] provide cues , steadying assist 3 The helper provides less than half the effort to complete the activity 2 The helper provides more than half the effort to complete the activity 1 Dependent. The helper does all the effort to complete an activity 7 Patient refused to complete or attempt activity 9 The patient did not perform the activity before the current illness or injury 88 Not attempted due to Medical conditions or safety concerns Other Treatment Pt did 15 reps bila UE exercise with 2# weight, working on shoulders, elbows, forearms and wrists. Also did 15 reps bilat UE ex with yellow theraband, working on shoulders and elbows in particular. Pt educ as needed on specific exercises. Exercise as needed for transfers up and downw (she sometimes struggles to get upright and with her balance). Pt left up in recliner, all needs met. OT Short Term Goals Short Term Goals Time Frame: Jul 20, 2016 Lower Body Dressing(FIM): 5 Transfers (B,C,W/C) (FIM): 4 Toilet/Commode Transfer(FIM): 4 Additional Short Term Goals: 2-Verbalize Understanding, 3-ImproveStrength/Tavares 1=Demonstrate adherence to instructed precautions during ADL tasks. 2=Patient will verbalize/demonstrate understanding of assistive devices/ modifications for ADL. 3=Patient will improve strength/tolerance for activity to enable patient to perform ADL's. OT Frameman Goals Frameman Goals Time Frame: Aug 09, 2016 Eating (FIM): 5 Eating (QC): 5 Oral Hygiene (QC): 6 Grooming(FIM): 6 Bathing(FIM): 5 Shower/Bathe Self (QC): 5 Upper Body Dressing(FIM): 6 Upper Body Dressing (QC): 6 Lower Body Dressing(FIM): 6 Lower Body Dressing (QC): 6 On/Off Footwear (QC): 6 Toileting(FIM): 6 Toileting Hygiene (QC): 6 Toilet/Commode Transfer(FIM): 6 Toilet/Commode Transfer (QC): 6 Shower Transfer(FIM): 6 Comprehension(FIM): 6 Expression (FIM): 6 Social Interaction(FIM): 6 Problem Solving(FIM): 6 Memory(FIM): 6 Improve bilat UE strength to 5/5 to help with transfers and ADLs Additional Goals: 2-Verbalize Understanding, 3-ImproveStrength/Tavares 1=Demonstrate adherence to instructed precautions during ADL tasks. 2=Patient will verbalize/demonstrate understanding of assistive devices/ modifications for ADL. 3=Patient will improve strength/tolerance for activity to enable patient to perform ADL's. OT Education/Plan Problem List/Assessment Pt would benefit from skilled OT to increase her independence in basic self care to allow her to return to son's home and decrease caregiver bruden Discharge Recommendations Plan/Recommendations: Continue POC Treatment Plan/Plan of Care Patient would benefit from OT for education, treatment and training to promote independence in ADL's, mobility, safety and/or upper extremity function for ADL' s. Plan of Care: ADL Retraining, Caregiver Training, Functional Mobility, Group Exercise/Act as Ind (education, exercise, activity tolerance, functional activities, safety), UE Funct Exercise/Act, UE Neuromus Re-Ed/Coord Treatment Duration: Aug 09, 2016 Visits Per Week: 10-11 Minutes/Day (M-F): 75-90 Minutes/Day (Sat/Marcano): PRN Agreement: Yes Rehab Potential: Fair Time/GCodes Start Time: 13:00 Stop Time: 13:15 Total Time Billed (hr/min): 15 Billed Treatment Time visit, 15 minutes exercise WARD PARISI OT Jul 24, 2016 13:25
--- NOTE | 2016-07-24 13:27 | Occupational Ther Daily Note ---
OT Current Status-Daily Note Subjective Pt seen up in recliner initially at 10 am but requested time to rest after PT so was rescheduled. No pain mentioned Appearance Alert, cooperative, talks by closing off speaking valve Mental Status/Objective Functional [place] Measure 0=Not Assessed/NA 4=Minimal Assistance 1=Total Assistance 5=Supervision or Setup 2=Maximal Assistance 6=Modified [place] 3=Moderate Assistance 7=Complete [place] ADL-Treatment Functional [place] Measure 0=Not Assessed/NA 4=Minimal Assistance 1=Total Assistance 5=Supervision or Setup 2=Maximal Assistance 6=Modified [place] 3=Moderate Assistance 7=Complete IndependenceIRFPAI Quality Coding Scale 6 Independent with activity with or without an assistive device 5 Patient requires set up or clean up by helper. Patient completes activity by themselves 4 Supervision or touching assist (CGA). [place] provide cues , steadying assist 3 The helper provides less than half the effort to complete the activity 2 The helper provides more than half the effort to complete the activity 1 Dependent. The helper does all the effort to complete an activity 7 Patient refused to complete or attempt activity 9 The patient did not perform the activity before the current illness or injury 88 Not attempted due to Medical conditions or safety concerns Grooming (FIM): 6 (Combed hair and rinsed out mouth. Does not have dentures here or teeth. ) Bathing (FIM): 5 (Pt washed and dried all parts except back, sitting in recliner, sponge bath with setup. Pt declined shower. ) Upper Body (FIM): 5 (Undressed and dressed upper body with setup.) Lower Body Dressing (FIM): 5 (Undressed and dressed lower body with setup, SBA for standing to pull pants up, FWW. Able to get sock on R foot herself byt used sock aid to put sock on L foot, with no additional instructions. ) Transfers (B, C, W/C) (FIM): 5 (Safety reminders for sit to stand and stand to sit, for hand placement. CGA, FWW when walking to w/c and back) Other Treatment Pt propelled w/c to gym area. Did 16 minutes bilat UE exercise on arm bike ( increased time) set at 10-12W resistance. Pt worked steadily with no recovery breaks. Also did arc activity x 2 sets short extension and 1 set medium extension, with 1# weight on each arm. All activities to help strengthen arms for transfers and standing during ADLs, using FWW. Pt was returned to room, transferred to recliner, all needs met. Education OT Patient Education: Exercise program, Modified ADL techniques, Safety issues , Transfer techniques Teaching Recipient: Patient Teaching Methods: Discussion Response to Teaching: Return Demonstration OT Short Term Goals Short Term Goals Time Frame: Jul 20, 2016 Lower Body Dressing(FIM): 5 Transfers (B,C,W/C) (FIM): 4 Toilet/Commode Transfer(FIM): 4 Additional Short Term Goals: 2-Verbalize Understanding, 3-ImproveStrength/Tavares 1=Demonstrate adherence to instructed precautions during ADL tasks. 2=Patient will verbalize/demonstrate understanding of assistive devices/ modifications for ADL. 3=Patient will improve strength/tolerance for activity to enable patient to perform ADL's. OT Senior Care Goals Harvest Worker Field Crop Goals Time Frame: Aug 09, 2016 Eating (FIM): 5 Eating (QC): 5 Oral Hygiene (QC): 6 Grooming(FIM): 6 Bathing(FIM): 5 Shower/Bathe Self (QC): 5 Upper Body Dressing(FIM): 6 Upper Body Dressing (QC): 6 Lower Body Dressing(FIM): 6 Lower Body Dressing (QC): 6 On/Off Footwear (QC): 6 Toileting(FIM): 6 Toileting Hygiene (QC): 6 Toilet/Commode Transfer(FIM): 6 Toilet/Commode Transfer (QC): 6 Shower Transfer(FIM): 6 Comprehension(FIM): 6 Expression (FIM): 6 Social Interaction(FIM): 6 Problem Solving(FIM): 6 Memory(FIM): 6 Improve bilat UE strength to 5/5 to help with transfers and ADLs Additional Goals: 2-Verbalize Understanding, 3-ImproveStrength/Tavares 1=Demonstrate adherence to instructed precautions during ADL tasks. 2=Patient will verbalize/demonstrate understanding of assistive devices/ modifications for ADL. 3=Patient will improve strength/tolerance for activity to enable patient to perform ADL's. OT Education/Plan Problem List/Assessment Pt would benefit from skilled OT to increase her independence in basic self care to allow her to return to son's home and decrease caregiver bruden Discharge Recommendations Plan/Recommendations: Continue POC Treatment Plan/Plan of Care Patient would benefit from OT for education, treatment and training to promote independence in ADL's, mobility, safety and/or upper extremity function for ADL' s. Plan of Care: ADL Retraining, Caregiver Training, Functional Mobility, Group Exercise/Act as Ind (education, exercise, activity tolerance, functional activities, safety), UE Funct Exercise/Act, UE Neuromus Re-Ed/Coord Treatment Duration: Aug 09, 2016 Visits Per Week: 10-11 Minutes/Day (M-F): 75-90 Minutes/Day (Sat/Marcano): PRN Agreement: Yes Rehab Potential: Fair Time/GCodes Start Time: 11:00 Stop Time: 12:00 Total Time Billed (hr/min): 60 Billed Treatment Time visit, 25 minutes ADL, 35 minutes exercise WARD PARISI OT Jul 24, 2016 13:27
[2016-07-24 18:13] VITALS: BP 111/71
--- NOTE | 2016-07-24 19:09 | PM & R (SOAP) Progress Note ---
Subjective Subjective/Events-last exam Patient was seen in her room this AM Patient SBA for transfers Appreciate Therapy notes and DR Thorpe note Discussed case with DR Winters this AM Objective Exam Last Set of Vital Signs Vital Signs Date Time Temp Pulse Resp B/P Pulse Ox O2 Delivery O2 Flow Rate FiO2 07/24/16 18:13 96.4 79 14 111/71 99 Trach Collar 07/24/16 09:00 6.00 07/24/16 06:44 28 Capillary Refill : I&O Intake and Output 07/24/16 00:00 Intake Total 1650 ml Output Total 285 ml Balance 1365 ml Intake Oral 0 ml Tube Feeding 870 ml Other 780 ml Output Gastric Drainage Total 285 ml # Voids 5 General: Alert, Oriented X3, Cooperative, No Acute Distress HEENT: Atraumatic, PERRLA, EOMI, Mucous Memb Moist/[place] Neck: Other (trach) Lungs: Clear to Auscultation Heart: Regular Rate Abdomen: Normal Bowel Sounds, Soft, No Tenderness, Other (Peg tube in place) Extremities: Other (trace edema) Neuro: Other (Weakness both lower legs left >rt) Results Lab Laboratory Tests 07/21/16 19:55: Glucometer 240H 07/22/16 05:40: Glucometer 107 07/22/16 10:48: Glucometer 209H 07/22/16 15:24: Glucometer 427*H 07/22/16 20:08: Glucometer 261H 07/23/16 06:00: Glucometer 82 07/23/16 11:09: Glucometer 68L 07/23/16 12:48: Glucometer 96 07/23/16 16:04: Glucometer 106 07/23/16 20:49: Glucometer 178H 07/24/16 00:17: Glucometer 115H 07/24/16 05:31: Glucometer 63L 07/24/16 06:12: Glucometer 87 07/24/16 11:01: Glucometer 95 07/24/16 16:07: Glucometer 159H Assessment/Plan Assessment Comminuted left intertrochanteric fracture s/p repair OSH ortho S/P trach for pneumonia and ards S/P espohageal rupture and repair OSH-with hx of esophageal varices NPO status on tube feeds-MBS to be done with ST-done HX of substance abuse and etoh use DM meds being adjusted Plan Continue PT/OT/ST F/U with Lucy and check CXR-done Trial of capping trach-ongoing RT F/U Appreciate Dr Thorpe notes and orders Director Ship has made recs re tube feeds Discussed with RN last week Appreciate Dr Hidalgo notes and orders Trend Accuchecks and adjust meds as needed Appreciate MBS report and recs Monitor for any regurg with bolus tube feeds Next Team Conference tomorrow 07/25/16 F/U with SW re what discharge options possible RAHEEM SHAW MD Jul 24, 2016 19:09
[2016-07-24] MEDS: CYCLOBENZAPRINE 10 MG (FLEXERIL) TAB PO PRN (20:01)
[2016-07-24] MEDS: LORazepam 0.5 MG (ATIVAN) TABLET PEG PRN (20:01)
[2016-07-25] MEDS: HYDROcodone/APAP 7.5 MG/325 MG (LORTAB, LORCET PLUS) TABLET PO PRN ×4 (00:12→22:04)
[2016-07-25] MEDS: inSUlin (REGULAR) HUMAN 1 UNIT/0.01 ML (CHARGE PER UNIT) SC SCH ×4 (04:59→22:05)
[2016-07-25 06:37] VITALS: BP 102/71
[2016-07-25] MEDS: RT-ALBUTEROL/IPRATROPIUM 3 ML (DUONEB) VIAL INH SCH ×4 (07:00→19:00)
--- NOTE | 2016-07-25 08:09 | Progress Note (SOAP) ---
Subjective Subjective/Events-last exam patient resting comfortably this morning. Patient stable. Objective Exam Vital Signs Date Time Temp Pulse Resp B/P Pulse Ox O2 Delivery O2 Flow Rate FiO2 07/25/16 07:06 98 5.00 28 07/25/16 06:37 97.8 72 18 102/71 98 Trach Collar 6.00 07/24/16 21:00 Trach Collar 6.00 07/24/16 19:25 92 5.00 28 07/24/16 18:13 96.4 79 14 111/71 99 Trach Collar 07/24/16 15:08 98 07/24/16 10:27 92 07/24/16 09:00 Trach Collar 6.00 I & O 07/25/16 07:00 Intake Total 1680 ml Balance 1680 ml Capillary Refill : General Appearance: No Apparent Distress WD/WN Results Lab Laboratory Tests 07/24/16 11:01: Glucometer 95 07/24/16 16:07: Glucometer 159H 07/24/16 19:59: Glucometer 158H 07/24/16 21:37: Glucometer 165H 07/25/16 04:51: Glucometer 120H Assessment/Plan Assessment/Plan Assess & Plan/Chief Complaint hip fracture. Perforated esophageal ulcer . Hypertension diabetes. Previous suicide attempts. Depression. . 07/16/16. Hip fracture. Perforated esophageal ulcer. Hypertension. Diabetes. Previous suicide attempts. Depression. . 07/17/16. Hip fracture. Hypertension. Diabetes. Depression Hypertension. Diabetes.. Patient doing okay today. . 07/18/16. Hip fracture hypertension. Diabetes. Patient improving. . 07/19/16 hip fracture. Diabetes. Patient feel she is improving. Patient getting around with a walker. Sugars still elevated. More levimir. . 07/20/16. Sugars better. patient failed modified barium swallow study. Has disorder esophageal mobility. Hip fracture. Perforated esophageal ulcer. Hypertension.. . 07/23/16. Hip fracture. Perforated esophageal ulcer. Hypertension. Diabetes. Doing better. Previous suicide attempts.. . 07/24/16. Hip fracture area Perforated esophageal ulcer. Hypertension. Patient voices no complaints. . 07/25/16. Patient has no complaints. Patient tolerated this morning Diagnosis/Problems: Clinical Quality Measures DVT/VTE Risk/Contraindication: Risk Factor Score Per Nursin RFS Level Per Nursing on Admit: 3=High GELLENDER,RANDI A DO Jul 25, 2016 08:09
[2016-07-25] MEDS: NYSTATIN ORAL SUSP 5 ML UDC PO SCH ×4 (08:46→22:04)
[2016-07-25] MEDS: CARVEDILOL 12.5 MG (COREG) TABLET PO SCH ×2 (08:46→22:04)
[2016-07-25] MEDS: ASPIRIN E.C. 81 MG (ECOTRIN) TAB PO SCH (08:46)
[2016-07-25] MEDS: ENOXAPARIN 40 MG/0.4 ML (LOVENOX) SYR SC SCH (08:47)
[2016-07-25] MEDS: inSUlin DETERMIR 1 UNIT/0.01 ML (LEVEMIR) CHARGE PER UNIT SQ SCH ×2 (08:48→22:05)
--- NOTE | 2016-07-25 08:54 | Speech Therapy Daily Note ---
Speech Daily Progress Note Subjective The patient was sleeping in bed upon entrance. The patient was roused with moderate verbal prompting and was agreeable to dysphagia treatment on this date. To note, the patient required consistent verbal encouragement for continued participation. Per night nursing, the patient continues to consume hard candies and gum regardless of the clinician's NPO recommendation and education regarding these materials. The clinician visited with the patient for the third time regarding these consistencies prior to the onset of today's session. The patient's high risk of aspiration and possible subsequent pneumonia was shared, as well as, continued education regarding the importance of her NPO status for her overall safety. Per patient, "I can't have anything else, I am going to keep eating them , I don't see anything wrong with it." Extensive education regarding her risk was continued and she verbalized comprehension of the discussed material and her risks. Objective Dysphagia Exercises: The patient demonstrated fair accuracy with dysphagia exercises on this date. Moderate clinician verbal cueing and direct modeling was provided. The patient demonstrated decreased motivation and participation throughout today's session. - The patient was unable to tolerate the [place] Speaking Valve. The valve was placed and promptly removed by patient. Moderate backflow of air was noted upon removal. The patient's SpO2% remained at 95% throughout the session ( without PMV). Assessment Assessment Current Status: Fair Progress Treatment Plan Continue Plan of Care Communication Comprehension: 5 Expression: 5 Social Cognition Social Interaction: 4 Problem Solvin Memory: 4 Speech Short Term Goals Short Term Goals Short Term Goals 1. The patient will tolerate trials of the least restrictive diet without signs/ symptoms of aspiration or laryngeal penetration. 2. The patient will participate in a video swallow to definitely rule out aspiration. 3. The patient will demonstrate swallowing strategies, independently. 4. The patient will demonstrate base of tongue, pharyngeal, and laryngeal elevation exercises with 80% accuracy and mild clinician cueing. 5. The patient will demonstrate resonant voice techniques to aid in vocalizations with 80% accuracy and moderate clinician verbal cueing and direct modeling. Time Frame-STG: Two Weeks Speech Auto Design Detailer Goals Residential Goals 1. The patient will tolerate the least restrictive diet without signs/symptoms of aspiration or laryngeal penetration. 2. The patient will demonstrate reduced laryngeal tension for increase use of audible voice. Time Frame: Eight Weeks Comprehension: 6 Expression: 6 Social Interaction: 6 Problem Solvin Memory: 6 Speech-Plan Treatment Plan Speech Therapy Treatment Plan: Continue Plan of Care Treatment Duration: Sep 07, 2016 # of days/week Four to Five Visits Per Week: Four to Five Minutes/Day (M-F): 30 Rehab Potential: Fair Safety Risks/Education Teaching Recipient: Patient Teaching Methods: Discussion Response to Teaching: Verbalize Understanding, Reinforcement Needed Education Topics Provided: Aspiration Risk, Swallowing Recommendations Time Speech Therapy Time In: 08:15 Speech Therapy Time Out: 08:45 Total Billed Time: 30 Billed Treatment Time 1, AUNG FREEMAN Jul 25, 2016 08:54
--- NOTE | 2016-07-25 10:13 | Physical Therapy Daily Note ---
PT Daily Note-Current Subjective Pt. in bed, frowns when this ARCHITECTURAL ENGINEER enters. Agrees to Rx when encouraged. States she has pain in left hip at 5/10 with exercise and bilat anterior tibs with work on DF. Pain Numeric Pain Scale: 5-Moderate Pain Location: Left Location Body Site: Hip Pain Description: Ache Appearance left hip observed with dressing entact, no red or heat, no gross malformation Mental Status Attachments: Ventilator (trach) pt. is impulsive, moves quickly and unsafely. warned about risks of such movement patterns, pt. rolls her eyes Transfers Functional [place] Measure 0=Not Assessed/NA 4=Minimal Assistance 1=Total Assistance 5=Supervision or Setup 2=Maximal Assistance 6=Modified [place] 3=Moderate Assistance 7=Complete IndependenceIRFPAI Quality Coding Scale 6 Independent with activity with or without an assistive device 5 Patient requires set up or clean up by helper. Patient completes activity by themselves 4 Supervision or touching assist (CGA). [place] provide cues , steadying assist 3 The helper provides less than half the effort to complete the activity 2 The helper provides more than half the effort to complete the activity 1 Dependent. The helper does all the effort to complete an activity 7 Patient refused to complete or attempt activity 9 The patient did not perform the activity before the current illness or injury 88 Not attempted due to Medical conditions or safety concerns Transfers (B, C, W/C) (FIM): 4 Scootin Rollin Supine to/from Sit: 4 Sit to/from Stand: 4 Bed to/from Chair: 4 pt. makes all movement so quickly and impulsively that this ARCHITECTURAL ENGINEER has to warn her eery TRF to wait until this ARCHITECTURAL ENGINEER is nearby or hands on. with ARCHITECTURAL ENGINEER in room but back turned to retrieve equipment pt, has been found on her feet. this is not safe given her foot drop and unsafe judgement Gait Training Does the Patient Walk?: Yes Gait (FIM): 4 Distance (FIM): 8=616-15 ft (125x3) Gait Level of Assist: 4 Gait Persons Needed: 1 Gait Assistive Device: FWW w/c to follow, cues for safe habits, small steps and to make sure she has good controlled movements Exercises Supine Ex: Bridging, Ankle pumps, Quad Set, Glut sets, Heel Slides, Short Arc Quads, Hip abd/add Supine Reps: 10 Seated Therapy Exercises: Sit to stand, Long arc quads Seated Reps: 10 HC stretches bilat and emphasis on ant tibs, seem to be improving NuStep Minutes: 10 NuStep Workload: 2 Treatments pt. c/o SOB in supine position and prefers seated exercise or Nustep. Assessment Current Status: Good Progress pts unsafe habits and poor judgement as well as lack of understanding about what is safe limits progress. Pt. not motivated to work, doesnt want to be awakened. This ARCHITECTURAL ENGINEER educating again today RE: qualifications for ARU PT Short Term Goals Short Term Goals Time Frame: Jul 26, 2016 Transfers (B,C,W/C) (FIM): 4 Gait (FIM): 4 Distance (FIM): 3=150 ft Gait Assistive Device: FWW Wheelchair Distance: 80' Stairs (FIM): 2 # of Steps: 4 Stairs Level of Assist: 4 PT Custodial Goals Language Asst Goals PT Custodial Goals Time Frame: Aug 09, 2016 Transfers (B,C,W/C) (FIM): 6 Sit to Lying (QC): 6 Lying-Sitting on Side/Bed(QC): 6 Sit to Stand (QC): 6 Rollin Roll Left to Right (QC): 6 Chair/Xbn-ff-Xefeo Xfer(QC): 6 Car Transfer (QC): 5 Does the Patient Walk: Yes Gait (FIM): 6 Gait distance (FIM): 3=150 ft Walk 10 feet (QC): 6 Walk 10ft-Uneven Surface(QC): 6 Walk 50ft with 2 Turns (QC): 6 Walk 150 ft (QC): 6 Gait Level of Assist: 6 Gait Assistive Device: FWW Stairs (FIM): 5 # of Steps: 8 1 Step (curb) (QC): 5 4 Steps (QC): 5 12 Steps (QC): 88 Stairs Level Of Assist: 5 Picking up an Object (QC): 5 PT Plan Treatment/Plan Treatment Plan: Continue Plan of Care Treatment Plan: Bed Mobility, Education, Functional Activity Tavares, Functional Strength, Group Therapy (socialization, education), Gait, Safety, Therapeutic Exercise, Transfers Treatment Duration: Aug 09, 2016 Visits Per Week: 10-15 Minutes/Day (M-F): 60-90 Minutes/Day (Sat/Marcano): prn Safety Risks/Education Patient Education: Gait Training, Transfer Techniques, Correct Positioning, W/ C Management, Disease Process, Safety Issues Teaching Recipient: Patient Teaching Methods: Demonstration, Discussion Response to Teaching: Verbalize Understanding, Return Demonstration, Reinforcement Needed Time/GCodes Time In: 900 Time Out: 1000 Total Billed Treatment Time: 60 Total Billed Treatment 1,GT15m,FA15m,EX30m G Codes Necessary: ADAMS Rubin PTA Jul 25, 2016 10:13
--- NOTE | 2016-07-25 11:08 | Occupational Ther Daily Note ---
OT Current Status-Daily Note Subjective Pt seen in room, up in recliner, agreeable to OT. Pt wanted to take a shower. No pain mentioned. Appearance Alert, cooperative Mental Status/Objective Functional [place] Measure 0=Not Assessed/NA 4=Minimal Assistance 1=Total Assistance 5=Supervision or Setup 2=Maximal Assistance 6=Modified [place] 3=Moderate Assistance 7=Complete [place] Attachments: PEG Tube, Other-See Comments (trach) ADL-Treatment Pt was observed to take a sip of water from a cup and cautioned that she has NPO status and reviewed risks of aspiration. Pt verbalized understanding Functional [place] Measure 0=Not Assessed/NA 4=Minimal Assistance 1=Total Assistance 5=Supervision or Setup 2=Maximal Assistance 6=Modified [place] 3=Moderate Assistance 7=Complete IndependenceIRFPAI Quality Coding Scale 6 Independent with activity with or without an assistive device 5 Patient requires set up or clean up by helper. Patient completes activity by themselves 4 Supervision or touching assist (CGA). [place] provide cues , steadying assist 3 The helper provides less than half the effort to complete the activity 2 The helper provides more than half the effort to complete the activity 1 Dependent. The helper does all the effort to complete an activity 7 Patient refused to complete or attempt activity 9 The patient did not perform the activity before the current illness or injury 88 Not attempted due to Medical conditions or safety concerns Grooming (FIM): 5 (Pt combed hair, washed face and hands setup. No makeup) Bathing (FIM): 5 (Washed and dried all parts, SBA when standing to wash bottom. Shower bench, grab bars, hand held shower. Washed hair. Did not cover dressings or trach, per nursing OK, with wet dressings changed by nursing after shower. ) Upper Body (FIM): 5 (setup) Lower Body Dressing (FIM): 5 (setup, supervision for standing to pull pants up. Pt educ to dress operated leg first and to roll down top of Depends to facilitate getting feet in. ) Toileting (FIM): 5 (SBA to stand to manage clothing. BSC over toilet, grab bars , FWW) Toilet/Commode Transfer (FIM): 5 (SBA, BSC over toilet, grab bars, FWW) Shower Transfer(FIM): 5 (Shower bench, SBA. grab bars, FWW) Discussed equipment needs at home, including transfer tub bench for getting in/ out of tub to shower. May also need sock aid and BSC over toilet. Pt left up in recliner, all needs met. OT Short Term Goals Short Term Goals Time Frame: Jul 20, 2016 Lower Body Dressing(FIM): 5 Transfers (B,C,W/C) (FIM): 4 Toilet/Commode Transfer(FIM): 4 Additional Short Term Goals: 2-Verbalize Understanding, 3-ImproveStrength/Tavares 1=Demonstrate adherence to instructed precautions during ADL tasks. 2=Patient will verbalize/demonstrate understanding of assistive devices/ modifications for ADL. 3=Patient will improve strength/tolerance for activity to enable patient to perform ADL's. OT Senior Living Goals Hardware Test Engineer Goals Time Frame: Aug 09, 2016 Eating (FIM): 5 Eating (QC): 5 Oral Hygiene (QC): 6 Grooming(FIM): 6 Bathing(FIM): 5 Shower/Bathe Self (QC): 5 Upper Body Dressing(FIM): 6 Upper Body Dressing (QC): 6 Lower Body Dressing(FIM): 6 Lower Body Dressing (QC): 6 On/Off Footwear (QC): 6 Toileting(FIM): 6 Toileting Hygiene (QC): 6 Toilet/Commode Transfer(FIM): 6 Toilet/Commode Transfer (QC): 6 Shower Transfer(FIM): 6 Comprehension(FIM): 6 Expression (FIM): 6 Social Interaction(FIM): 6 Problem Solving(FIM): 6 Memory(FIM): 6 Improve bilat UE strength to 5/5 to help with transfers and ADLs Additional Goals: 2-Verbalize Understanding, 3-ImproveStrength/Tavares 1=Demonstrate adherence to instructed precautions during ADL tasks. 2=Patient will verbalize/demonstrate understanding of assistive devices/ modifications for ADL. 3=Patient will improve strength/tolerance for activity to enable patient to perform ADL's. OT Education/Plan Problem List/Assessment Pt would benefit from skilled OT to increase her independence in basic self care to allow her to return to son's home and decrease caregiver bruden Discharge Recommendations Plan/Recommendations: Continue POC Treatment Plan/Plan of Care Patient would benefit from OT for education, treatment and training to promote independence in ADL's, mobility, safety and/or upper extremity function for ADL' s. Plan of Care: ADL Retraining, Caregiver Training, Functional Mobility, Group Exercise/Act as Ind (education, exercise, activity tolerance, functional activities, safety), UE Funct Exercise/Act, UE Neuromus Re-Ed/Coord Treatment Duration: Aug 09, 2016 Visits Per Week: 10-11 Minutes/Day (M-F): 75-90 Minutes/Day (Sat/Marcano): PRN Agreement: Yes Rehab Potential: Fair Time/GCodes Start Time: 10:15 Stop Time: 11:00 Total Time Billed (hr/min): 45 Billed Treatment Time visit, 45 minutes ADL WARD PARISI OT Jul 25, 2016 11:08
--- NOTE | 2016-07-25 14:48 | Therapy Group Daily Note ---
Therapy Daily Group Note Patient Education Topic Home Safety, Fall Prevention, Other List Below (mobility devices) Exercises LE Seated Exercise, UE Exercise Other/Notes Pt was an active participant in OT/PT group and socialized with other group members by sharing what she was most proud of. She contributed to discussion/ education on home safety/fall prevention and mobility devices and shared some examples from her life regarding safety at home . She did seated UE and LE exercises . She was returned to her room per w/c, stopping with OT to look at a transfer tub bench in bathtub (idea for home use). Pt transferred SBA, FWW to recliner and needed skilled cues for hand placement for safety when sitting. Start Time: 13:00 Stop Time: 14:15 Total Billed Treatment Time: 75 Total Billed Treatment visit, 75 minutes group WARD PARISI OT Jul 25, 2016 14:48
--- NOTE | 2016-07-25 15:27 | PM & R (SOAP) Progress Note ---
Subjective Subjective/Events-last exam Patient was seen in her room earlier today Patient Min assist for transfers Objective Exam Last Set of Vital Signs Vital Signs Date Time Temp Pulse Resp B/P Pulse Ox O2 Delivery O2 Flow Rate FiO2 07/25/16 14:37 96 5.00 28 07/25/16 09:00 Trach Collar 07/25/16 06:37 97.8 72 18 102/71 Capillary Refill : I&O Intake and Output 07/25/16 00:00 Intake Total 1500 ml Output Total 135 ml Balance 1365 ml Intake Oral 0 ml Tube Feeding 960 ml Other 540 ml Output Gastric Drainage Total 135 ml # Voids 7 # Urine Diapers 1 General: Alert, Oriented X3, Cooperative, No Acute Distress HEENT: Atraumatic, PERRLA, EOMI, Mucous Memb Moist/[place] Neck: Other (trach) Lungs: Clear to Auscultation Heart: Regular Rate Abdomen: Normal Bowel Sounds, Soft, No Tenderness, Other (Peg tube in place) Extremities: Other (trace edema) Neuro: Other (Weakness both lower legs left >rt) Results Lab Laboratory Tests 07/22/16 20:08: Glucometer 261H 07/23/16 06:00: Glucometer 82 07/23/16 11:09: Glucometer 68L 07/23/16 12:48: Glucometer 96 07/23/16 16:04: Glucometer 106 07/23/16 20:49: Glucometer 178H 07/24/16 00:17: Glucometer 115H 07/24/16 05:31: Glucometer 63L 07/24/16 06:12: Glucometer 87 07/24/16 11:01: Glucometer 95 07/24/16 16:07: Glucometer 159H 07/24/16 19:59: Glucometer 158H 07/24/16 21:37: Glucometer 165H 07/25/16 04:51: Glucometer 120H 07/25/16 11:02: Glucometer 62L Assessment/Plan Assessment Comminuted left intertrochanteric fracture s/p repair OSH ortho S/P trach for pneumonia and ards S/P espohageal rupture and repair OSH-with hx of esophageal varices NPO status on tube feeds-MBS to be done with ST-done HX of substance abuse and etoh use DM meds being adjusted Plan Continue PT/OT/ST F/U with Lucy and check CXR-done Trial of capping trach-ongoing RT F/U Appreciate Dr Thorpe notes and orders Pocket Grinder Operator has made recs re tube feeds Discussed with RN last week Appreciate Dr Hidalgo notes and orders Trend Accuchecks and adjust meds as needed Appreciate MBS report and recs Monitor for any regurg with bolus tube feeds Team Conference held earlier today-see report for full functional update and POC and ELOS F/U with SW re what discharge options possible RAHEEM SHAW MD Jul 25, 2016 15:27
[2016-07-25] MEDS: LORazepam 0.5 MG (ATIVAN) TABLET PEG PRN ×2 (17:08→22:04)
[2016-07-25 18:58] VITALS: BP 118/63
[2016-07-25 22:01] VITALS: BP 125/79
[2016-07-26 06:00] VITALS: BP 99/64
[2016-07-26] MEDS: inSUlin (REGULAR) HUMAN 1 UNIT/0.01 ML (CHARGE PER UNIT) SC SCH ×4 (06:00→19:57)
[2016-07-26 06:26] LABS: ALANINE AMINOTRANSFERASE 20 U/L (0-55); ALBUMIN 3.5 G/DL (3.2-4.5); ANION GAP 8 MMOL/L (5-14); ASPARTATE AMINO TRANSFERASE 15 U/L (5-34); BILIRUBIN,TOTAL 0.2 MG/DL (0.1-1.0); BLOOD UREA NITROGEN 16 MG/DL (7-18); BUN/CREATININE RATIO 30; CALCIUM 9.3 MG/DL (8.5-10.1); CARBON DIOXIDE 28 MMOL/L (21-32); CHLORIDE 102 MMOL/L (98-107); CREATININE SERUM 0.54 MG/DL (0.60-1.30); GFR ESTIMATED > 60; GLUCOSE 94 MG/DL (70-105); POTASSIUM 4.2 MMOL/L (3.6-5.0); SODIUM 138 MMOL/L (135-145); TOTAL PROTEIN 7.1 G/DL (6.4-8.2)
--- NOTE | 2016-07-26 07:09 | Pulmonary Progress Note ---
Standard Progress Note Progress Notes no complications noted. Assessment & Plan Tracheostomy s/p ARDS -Pt is doing better with speaking valve Dysphagia - high risk for aspiration -Pt failed barium swallow. She is high risk for aspiration. will change to uncuffed fenestrated tracheostomy tube. RT has ordered tube. AUDELIA JUSTICE DO Jul 26, 2016 07:09
[2016-07-26] MEDS: RT-ALBUTEROL/IPRATROPIUM 3 ML (DUONEB) VIAL INH SCH ×4 (07:19→18:58)
[2016-07-26] MEDS: NYSTATIN ORAL SUSP 5 ML UDC PO SCH ×4 (08:16→19:47)
[2016-07-26] MEDS: inSUlin DETERMIR 1 UNIT/0.01 ML (LEVEMIR) CHARGE PER UNIT SQ SCH ×2 (08:16→19:47)
[2016-07-26] MEDS: ENOXAPARIN 40 MG/0.4 ML (LOVENOX) SYR SC SCH (08:16)
[2016-07-26] MEDS: CARVEDILOL 12.5 MG (COREG) TABLET PO SCH ×2 (08:17→19:46)
[2016-07-26] MEDS: ASPIRIN E.C. 81 MG (ECOTRIN) TAB PO SCH (08:17)
[2016-07-26] MEDS: LORazepam 0.5 MG (ATIVAN) TABLET PEG PRN ×3 (08:17→19:46)
[2016-07-26] MEDS: HYDROcodone/APAP 7.5 MG/325 MG (LORTAB, LORCET PLUS) TABLET PO PRN ×3 (08:17→19:46)
--- NOTE | 2016-07-26 08:23 | Progress Note (SOAP) ---
Subjective Subjective/Events-last exam patient tired and lethargic this morning. Patient doing speech exercises okay. Patient having difficulty with trach Objective Exam Vital Signs Date Time Temp Pulse Resp B/P Pulse Ox O2 Delivery O2 Flow Rate FiO2 07/26/16 07:19 99 6.00 28 07/26/16 06:00 99.8 83 22 99/64 98 Trach Collar 07/26/16 03:07 97 6.00 28 07/25/16 22:09 97 6.00 28 07/25/16 22:01 91 20 125/79 95 Trach Collar 07/25/16 21:00 Trach Collar 6.00 07/25/16 19:00 91 07/25/16 18:58 98.8 86 18 118/63 98 Room Air 07/25/16 14:37 96 5.00 28 07/25/16 10:15 95 5.00 28 07/25/16 09:00 Trach Collar 6.00 I & O 07/26/16 07:00 Intake Total 1660 ml Balance 1660 ml Capillary Refill : General Appearance: No Apparent Distress WD/WN Results Lab Laboratory Tests 07/26/16 05:43 Laboratory Tests 07/25/16 11:02: Glucometer 62L 07/25/16 17:06: Glucometer 164H 07/25/16 21:50: Glucometer 323H 07/26/16 05:43: Alanine Aminotransferase (ALT/SGPT) 20, Albumin 3.5, Alkaline Phosphatase 116, Anion Gap 8, Aspartate Amino Transf (AST/SGOT) 15, BUN/Creatinine Ratio 30, Blood Urea Nitrogen 16, Calcium Level 9.3, Carbon Dioxide Level 28, Chloride Level 102, Creatinine 0.54L, Estimat Glomerular Filtration Rate > 60, Glucose Level 94, Potassium Level 4.2, Sodium Level 138, Total Bilirubin 0.2, Total Protein 7.1 07/26/16 06:03: Glucometer 84 Assessment/Plan Assessment/Plan Assess & Plan/Chief Complaint hip fracture. Perforated esophageal ulcer . Hypertension diabetes. Previous suicide attempts. Depression. . 07/16/16. Hip fracture. Perforated esophageal ulcer. Hypertension. Diabetes. Previous suicide attempts. Depression. . 07/17/16. Hip fracture. Hypertension. Diabetes. Depression Hypertension. Diabetes.. Patient doing okay today. . 07/18/16. Hip fracture hypertension. Diabetes. Patient improving. . 07/19/16 hip fracture. Diabetes. Patient feel she is improving. Patient getting around with a walker. Sugars still elevated. More levimir. . 07/20/16. Sugars better. patient failed modified barium swallow study. Has disorder esophageal mobility. Hip fracture. Perforated esophageal ulcer. Hypertension.. . 07/23/16. Hip fracture. Perforated esophageal ulcer. Hypertension. Diabetes. Doing better. Previous suicide attempts.. . 07/24/16. Hip fracture area Perforated esophageal ulcer. Hypertension. Patient voices no complaints. . 07/25/16. Patient has no complaints. Patient tolerated this morning 07/26/16. Hip fracture. Perforated esophageal ulcer. Hypertension. Diabetes.. Patient lethargic. Diagnosis/Problems: Clinical Quality Measures DVT/VTE Risk/Contraindication: Risk Factor Score Per Nursin RFS Level Per Nursing on Admit: 3=High RANDI RIBEIRO DO Jul 26, 2016 08:23
--- NOTE | 2016-07-26 08:53 | Speech Therapy Daily Note ---
Speech Daily Progress Note Subjective The patient was laying in bed upon entrance. The patient demonstrated fatigue on this date, requiring consistent verbal prompting from clinician for alertness. The patient was agreeable to dysphagia therapy on this date. Objective Dysphagia Exercises: Limited dysphagia exercises were completed on this date due to consistent encouragement required for continued participation. The exercises completed were done with fair accuracy following direct modeling by the clinician. - Due to the patient's upcoming discharge, a repetition of the cognitive screen was completed to ensure appropriate decision making ability. The Perkins Cognitive Assessment (MoCA) was completed (Version One) with the following results. - Visuospatial/Executive: The patient was able to accurately draw clock and complete trail-making. The patient was unable to accurately copy a cube. - Naming: The patient was able to name three items accurately. - Memory: The patient was able to recall three of five words immediately and three of five words following a five minute delay. - Attention: The patient was able to repeat five digits forward and three digits in reverse, as well as, serial seven subtraction. - Language: The patient was able to repeat short phrases and state the similarity between two words. - Orientation: The patient was oriented to date, month, year, day, place, and city. - The patient demonstrated a score of +26/30 which correlates to cognitive functions within normal limits. Assessment Assessment Current Status: Fair Progress Treatment Plan Continue Plan of Care Communication Comprehension: 5 Expression: 5 Social Cognition Social Interaction: 4 Problem Solvin Memory: 4 Speech Short Term Goals Short Term Goals Short Term Goals 1. The patient will tolerate trials of the least restrictive diet without signs/ symptoms of aspiration or laryngeal penetration. 2. The patient will participate in a video swallow to definitely rule out aspiration. 3. The patient will demonstrate swallowing strategies, independently. 4. The patient will demonstrate base of tongue, pharyngeal, and laryngeal elevation exercises with 80% accuracy and mild clinician cueing. 5. The patient will demonstrate resonant voice techniques to aid in vocalizations with 80% accuracy and moderate clinician verbal cueing and direct modeling. Time Frame-STG: Two Weeks Speech [employer] Goals Prison Goals 1. The patient will tolerate the least restrictive diet without signs/symptoms of aspiration or laryngeal penetration. 2. The patient will demonstrate reduced laryngeal tension for increase use of audible voice. Time Frame: Eight Weeks Comprehension: 6 Expression: 6 Social Interaction: 6 Problem Solvin Memory: 6 Speech-Plan Treatment Plan Speech Therapy Treatment Plan: Continue Plan of Care Continue dysphagia exercises as previously completed (Swallow Therapy). Treatment Duration: Sep 07, 2016 # of days/week Four to Five Visits Per Week: Four to Five Minutes/Day (M-F): 30 Rehab Potential: Fair Safety Risks/Education Teaching Recipient: Patient Teaching Methods: Discussion Response to Teaching: Return Demonstration Education Topics Provided: Dysphagia Exercises Time Speech Therapy Time In: 08:15 Speech Therapy Time Out: 08:45 Total Billed Time: 30 Billed Treatment Time 1, AUNG FREEMAN Jul 26, 2016 08:53
--- NOTE | 2016-07-26 10:07 | Physical Therapy Daily Note ---
PT Daily Note-Current Subjective Pt up in recliner, agrees to Rx. States during ther ex that she has been worming on DF with both feet/ankles in her room when she is alone. Pt. requests her spit cup and tissues and sponge with water on it several times during Rx. Pain Numeric Pain Scale: 0-No Pain Mental Status Patient Orientation: Person, Place, Time, Eyes Open, Situation, Normal For Age Attachments: PEG Tube, Ventilator (trach), IV Transfers Functional [place] Measure 0=Not Assessed/NA 4=Minimal Assistance 1=Total Assistance 5=Supervision or Setup 2=Maximal Assistance 6=Modified [place] 3=Moderate Assistance 7=Complete IndependenceIRFPAI Quality Coding Scale 6 Independent with activity with or without an assistive device 5 Patient requires set up or clean up by helper. Patient completes activity by themselves 4 Supervision or touching assist (CGA). [place] provide cues , steadying assist 3 The helper provides less than half the effort to complete the activity 2 The helper provides more than half the effort to complete the activity 1 Dependent. The helper does all the effort to complete an activity 7 Patient refused to complete or attempt activity 9 The patient did not perform the activity before the current illness or injury 88 Not attempted due to Medical conditions or safety concerns Transfers (B, C, W/C) (FIM): 5 Scootin Rollin Supine to/from Sit: 6 Sit to/from Stand: 5 Bed to/from Chair: 5 pt. continues to move impulsively and needs reminders during Rx that she needs to move slowly and wait until gait belt is on and walker is in front of her. Gait Training Does the Patient Walk?: Yes Gait (FIM): 4 Distance (FIM): 3=150 ft (x2) Gait Level of Assist: 4 Gait Persons Needed: 1 Gait Assistive Device: FWW pt. with increased DF and facilitates this during gait...increased safety Wheelchair Training Does the Pt Use a Wheelchair?: Yes Wheelchair (FIM): 5 Wheelchair Distance: 3=150 ft Wheelchair Level of Assist: 5 Type of Wheelchair: Manual needs cues to use UEs to propel w/c and not reach to pull and push on doorways etc Exercises Supine Ex: Bridging, Ankle pumps (HC stretches and AAROM DF), Quad Set, Rolling , Glut sets, Heel Slides, Short Arc Quads, Scooting, Straight leg raise, Hip abd /add Supine Reps: 15 Assessment Current Status: Good Progress improved gait PT Short Term Goals Short Term Goals Time Frame: Jul 26, 2016 Transfers (B,C,W/C) (FIM): 4 Gait (FIM): 4 Distance (FIM): 3=150 ft Gait Assistive Device: FWW Wheelchair Distance: 80' Stairs (FIM): 2 # of Steps: 4 Stairs Level of Assist: 4 PT Mcc Goals First Line Supervisor Goals PT First Line Supervisor Goals Time Frame: Aug 09, 2016 Transfers (B,C,W/C) (FIM): 6 Sit to Lying (QC): 6 Lying-Sitting on Side/Bed(QC): 6 Sit to Stand (QC): 6 Rollin Roll Left to Right (QC): 6 Chair/Xit-rq-Ujlbh Xfer(QC): 6 Car Transfer (QC): 5 Does the Patient Walk: Yes Gait (FIM): 6 Gait distance (FIM): 3=150 ft Walk 10 feet (QC): 6 Walk 10ft-Uneven Surface(QC): 6 Walk 50ft with 2 Turns (QC): 6 Walk 150 ft (QC): 6 Gait Level of Assist: 6 Gait Assistive Device: FWW Stairs (FIM): 5 # of Steps: 8 1 Step (curb) (QC): 5 4 Steps (QC): 5 12 Steps (QC): 88 Stairs Level Of Assist: 5 Picking up an Object (QC): 5 PT Plan Treatment/Plan Treatment Plan: Continue Plan of Care Treatment Plan: Bed Mobility, Education, Functional Activity Tavares, Functional Strength, Group Therapy (socialization, education), Gait, Safety, Therapeutic Exercise, Transfers Treatment Duration: Aug 09, 2016 Visits Per Week: 10-15 Minutes/Day (M-F): 60-90 Minutes/Day (Sat/Marcano): prn Safety Risks/Education Patient Education: Gait Training, Transfer Techniques, Correct Positioning, W/ C Management, Disease Process, Safety Issues Teaching Recipient: Patient Teaching Methods: Demonstration, Discussion Response to Teaching: Verbalize Understanding, Return Demonstration, Reinforcement Needed Discharge Recommendations Plan will attempt to obtain shoes in pts sz 9 , this would allow for AFOs if needed as well as gait support etc Time/GCodes Time In: 915 Time Out: 1015 Total Billed Treatment Time: 60 Total Billed Treatment 1,GT20m,EX15m,FA25m G Codes Necessary: ADAMS Rubin AIRCRAFT STRUCTURE MECHANIC Jul 26, 2016 10:07
--- NOTE | 2016-07-26 11:21 | Occupational Ther Daily Note ---
OT Current Status-Daily Note Subjective Pt seen in room, up in recliner, reluctantly agreeable to OT. pt reported that her stomach was upset and she didn't want to leave her room but agreed to room exercises. Appearance Alert, often closed eyes Mental Status/Objective Functional [place] Measure 0=Not Assessed/NA 4=Minimal Assistance 1=Total Assistance 5=Supervision or Setup 2=Maximal Assistance 6=Modified [place] 3=Moderate Assistance 7=Complete [place] ADL-Treatment Functional [place] Measure 0=Not Assessed/NA 4=Minimal Assistance 1=Total Assistance 5=Supervision or Setup 2=Maximal Assistance 6=Modified [place] 3=Moderate Assistance 7=Complete IndependenceIRFPAI Quality Coding Scale 6 Independent with activity with or without an assistive device 5 Patient requires set up or clean up by helper. Patient completes activity by themselves 4 Supervision or touching assist (CGA). [place] provide cues , steadying assist 3 The helper provides less than half the effort to complete the activity 2 The helper provides more than half the effort to complete the activity 1 Dependent. The helper does all the effort to complete an activity 7 Patient refused to complete or attempt activity 9 The patient did not perform the activity before the current illness or injury 88 Not attempted due to Medical conditions or safety concerns Other Treatment Pt did 15 reps bilat UE exercises with yellow theraband, 1# exercise bar and 2# free weight, working on shoulders, elbows, forearms and wrists. Also provided with blue foam hand outdoor illuminating engineer and red (medium) resistance theraputty with 10 1/4 " beads in it. Pt educ on different exercises she can do with theraputty, including squeezing, pinching, pulling. Return demonstration. Pt needs skilled instruction in exercise to do them correctly but she can track repetitions. Pt left up in recliner, all needs met. OT Short Term Goals Short Term Goals Time Frame: Jul 20, 2016 Lower Body Dressing(FIM): 5 Transfers (B,C,W/C) (FIM): 4 Toilet/Commode Transfer(FIM): 4 Additional Short Term Goals: 2-Verbalize Understanding, 3-ImproveStrength/Tavares 1=Demonstrate adherence to instructed precautions during ADL tasks. 2=Patient will verbalize/demonstrate understanding of assistive devices/ modifications for ADL. 3=Patient will improve strength/tolerance for activity to enable patient to perform ADL's. OT Child Psychologist Goals Skilled Nursing Goals Time Frame: Aug 09, 2016 Eating (FIM): 5 Eating (QC): 5 Oral Hygiene (QC): 6 Grooming(FIM): 6 Bathing(FIM): 5 Shower/Bathe Self (QC): 5 Upper Body Dressing(FIM): 6 Upper Body Dressing (QC): 6 Lower Body Dressing(FIM): 6 Lower Body Dressing (QC): 6 On/Off Footwear (QC): 6 Toileting(FIM): 6 Toileting Hygiene (QC): 6 Toilet/Commode Transfer(FIM): 6 Toilet/Commode Transfer (QC): 6 Shower Transfer(FIM): 6 Comprehension(FIM): 6 Expression (FIM): 6 Social Interaction(FIM): 6 Problem Solving(FIM): 6 Memory(FIM): 6 Improve bilat UE strength to 5/5 to help with transfers and ADLs Additional Goals: 2-Verbalize Understanding, 3-ImproveStrength/Tavares 1=Demonstrate adherence to instructed precautions during ADL tasks. 2=Patient will verbalize/demonstrate understanding of assistive devices/ modifications for ADL. 3=Patient will improve strength/tolerance for activity to enable patient to perform ADL's. OT Education/Plan Problem List/Assessment Pt would benefit from skilled OT to increase her independence in basic self care to allow her to return to son's home and decrease caregiver bruden Discharge Recommendations Plan/Recommendations: Continue POC Treatment Plan/Plan of Care Patient would benefit from OT for education, treatment and training to promote independence in ADL's, mobility, safety and/or upper extremity function for ADL' s. Plan of Care: ADL Retraining, Caregiver Training, Functional Mobility, Group Exercise/Act as Ind (education, exercise, activity tolerance, functional activities, safety), UE Funct Exercise/Act, UE Neuromus Re-Ed/Coord Treatment Duration: Aug 09, 2016 Visits Per Week: 10-11 Minutes/Day (M-F): 75-90 Minutes/Day (Sat/Marcano): PRN Agreement: Yes Rehab Potential: Fair Time/GCodes Start Time: 10:30 Stop Time: 11:15 Total Time Billed (hr/min): 45 Billed Treatment Time visit, 45 minutes exercise WARD PARISI OT Jul 26, 2016 11:21
--- NOTE | 2016-07-26 13:31 | Physical Therapy Daily Note ---
PT Daily Note-Current Subjective Patient states she is nauseous but agrees to PT. Pain Numeric Pain Scale: 0-No Pain Location: No Pain Reported Mental Status Patient Orientation: Normal For Age Attachments: PEG Tube (4) Transfers Functional [place] Measure 0=Not Assessed/NA 4=Minimal Assistance 1=Total Assistance 5=Supervision or Setup 2=Maximal Assistance 6=Modified [place] 3=Moderate Assistance 7=Complete IndependenceIRFPAI Quality Coding Scale 6 Independent with activity with or without an assistive device 5 Patient requires set up or clean up by helper. Patient completes activity by themselves 4 Supervision or touching assist (CGA). [place] provide cues , steadying assist 3 The helper provides less than half the effort to complete the activity 2 The helper provides more than half the effort to complete the activity 1 Dependent. The helper does all the effort to complete an activity 7 Patient refused to complete or attempt activity 9 The patient did not perform the activity before the current illness or injury 88 Not attempted due to Medical conditions or safety concerns Transfers (B, C, W/C) (FIM): 4 Scootin Sit to/from Stand: 5 Sit to Stand (QC): 5 Gait Training Does the Patient Walk?: Yes Gait (FIM): 2 Distance (FIM): 4=195-96 ft Distance: 125' x 3 Gait Level of Assist: 4 Gait Assistive Device: FWW functional gait sequence Exercises Seated Therapy Exercises: Ankle pumps, Long arc quads Seated Reps: [address] Ex=Flex, Abd, Ext, Marching Standing Reps: 15 Assessment Patient is progressing with treatment. She still requires much encouragement to participate with therapy. PT to increase as tolerated by patient. PT Short Term Goals Short Term Goals Time Frame: Jul 26, 2016 Transfers (B,C,W/C) (FIM): 4 Gait (FIM): 4 Distance (FIM): 3=150 ft Gait Assistive Device: FWW Wheelchair Distance: 80' Stairs (FIM): 2 # of Steps: 4 Stairs Level of Assist: 4 PT Senior Care Goals Daycare Provider Goals PT Senior Care Goals Time Frame: Aug 09, 2016 Transfers (B,C,W/C) (FIM): 6 Sit to Lying (QC): 6 Lying-Sitting on Side/Bed(QC): 6 Sit to Stand (QC): 6 Rollin Roll Left to Right (QC): 6 Chair/[id number] Xfer(QC): 6 Car Transfer (QC): 5 Does the Patient Walk: Yes Gait (FIM): 6 Gait distance (FIM): 3=150 ft Walk 10 feet (QC): 6 Walk 10ft-Uneven Surface(QC): 6 Walk 50ft with 2 Turns (QC): 6 Walk 150 ft (QC): 6 Gait Level of Assist: 6 Gait Assistive Device: FWW Stairs (FIM): 5 # of Steps: 8 1 Step (curb) (QC): 5 4 Steps (QC): 5 12 Steps (QC): 88 Stairs Level Of Assist: 5 Picking up an Object (QC): 5 PT Plan Treatment/Plan Treatment Plan: Continue Plan of Care Treatment Plan: Bed Mobility, Education, Functional Activity Tavares, Functional Strength, Group Therapy (socialization, education), Gait, Safety, Therapeutic Exercise, Transfers Treatment Duration: Aug 09, 2016 Visits Per Week: 10-15 Minutes/Day (M-F): 60-90 Minutes/Day (Sat/Marcano): prn Time/GCodes Time In: 1255 Time Out: 1325 Total Billed Treatment Time: 30 Total Billed Treatment 1 visit GT 15 min EX 15 min KYA BENTLEY PT Jul 26, 2016 13:31
--- NOTE | 2016-07-26 15:24 | Occupational Ther Daily Note ---
OT Current Status-Daily Note Subjective Pt seen in room, up in recliner, reluctantly agreeable to OT out of her room. Still reporting upset stomach Appearance Alert, cooperative Mental Status/Objective Functional [place] Measure 0=Not Assessed/NA 4=Minimal Assistance 1=Total Assistance 5=Supervision or Setup 2=Maximal Assistance 6=Modified [place] 3=Moderate Assistance 7=Complete [place] ADL-Treatment Functional [place] Measure 0=Not Assessed/NA 4=Minimal Assistance 1=Total Assistance 5=Supervision or Setup 2=Maximal Assistance 6=Modified [place] 3=Moderate Assistance 7=Complete IndependenceIRFPAI Quality Coding Scale 6 Independent with activity with or without an assistive device 5 Patient requires set up or clean up by helper. Patient completes activity by themselves 4 Supervision or touching assist (CGA). [place] provide cues , steadying assist 3 The helper provides less than half the effort to complete the activity 2 The helper provides more than half the effort to complete the activity 1 Dependent. The helper does all the effort to complete an activity 7 Patient refused to complete or attempt activity 9 The patient did not perform the activity before the current illness or injury 88 Not attempted due to Medical conditions or safety concerns Other Treatment Transferred CGA, FWW from recliner to w/c, with additional assistance needed to maneuver tube feeding pump. Pt educ to move slowly and safely but she is still impulsive. Pt transported per w/c to gym. She did 14 minutes bilat UE exercise on arm bike set at 10W resistance but today took rest/recovery periods which she normally does not do. Pt ended exercises with 2 minutes left on arm bike due to "I told you. I don't feel good". Pt returned to room (help needed with pump), transferred back to bed [facility], FWW with skilled cues for safety. Left up in recliner, all needs met OT Short Term Goals Short Term Goals Time Frame: Jul 20, 2016 Lower Body Dressing(FIM): 5 Transfers (B,C,W/C) (FIM): 4 Toilet/Commode Transfer(FIM): 4 Additional Short Term Goals: 2-Verbalize Understanding, 3-ImproveStrength/Tavares 1=Demonstrate adherence to instructed precautions during ADL tasks. 2=Patient will verbalize/demonstrate understanding of assistive devices/ modifications for ADL. 3=Patient will improve strength/tolerance for activity to enable patient to perform ADL's. OT Production Control Coordinating Clerk Goals Prison Goals Time Frame: Aug 09, 2016 Eating (FIM): 5 Eating (QC): 5 Oral Hygiene (QC): 6 Grooming(FIM): 6 Bathing(FIM): 5 Shower/Bathe Self (QC): 5 Upper Body Dressing(FIM): 6 Upper Body Dressing (QC): 6 Lower Body Dressing(FIM): 6 Lower Body Dressing (QC): 6 On/Off Footwear (QC): 6 Toileting(FIM): 6 Toileting Hygiene (QC): 6 Toilet/Commode Transfer(FIM): 6 Toilet/Commode Transfer (QC): 6 Shower Transfer(FIM): 6 Comprehension(FIM): 6 Expression (FIM): 6 Social Interaction(FIM): 6 Problem Solving(FIM): 6 Memory(FIM): 6 Improve bilat UE strength to 5/5 to help with transfers and ADLs Additional Goals: 2-Verbalize Understanding, 3-ImproveStrength/Tavares 1=Demonstrate adherence to instructed precautions during ADL tasks. 2=Patient will verbalize/demonstrate understanding of assistive devices/ modifications for ADL. 3=Patient will improve strength/tolerance for activity to enable patient to perform ADL's. OT Education/Plan Problem List/Assessment Pt would benefit from skilled OT to increase her independence in basic self care to allow her to return to son's home and decrease caregiver bruden Discharge Recommendations Plan/Recommendations: Continue POC Treatment Plan/Plan of Care Patient would benefit from OT for education, treatment and training to promote independence in ADL's, mobility, safety and/or upper extremity function for ADL' s. Plan of Care: ADL Retraining, Caregiver Training, Functional Mobility, Group Exercise/Act as Ind (education, exercise, activity tolerance, functional activities, safety), UE Funct Exercise/Act, UE Neuromus Re-Ed/Coord Treatment Duration: Aug 09, 2016 Visits Per Week: 10-11 Minutes/Day (M-F): 75-90 Minutes/Day (Sat/Marcano): PRN Agreement: Yes Rehab Potential: Fair Time/GCodes Start Time: 14:00 Stop Time: 14:30 Total Time Billed (hr/min): 30 Billed Treatment Time visit, 30 minutes exercise WARD PARISI OT Jul 26, 2016 15:24
[2016-07-26 18:20] VITALS: BP 107/67
--- NOTE | 2016-07-26 18:53 | PM & R (SOAP) Progress Note ---
Subjective Subjective/Events-last exam Patient was seen in her room this AM Patient min assist for gait and SBA for transfers Appreciate Dr Hidalgo note and orders Current labs reviewed. Objective Exam Last Set of Vital Signs Vital Signs Date Time Temp Pulse Resp B/P Pulse Ox O2 Delivery O2 Flow Rate FiO2 07/26/16 15:43 99 6.00 28 07/26/16 09:00 Trach Collar 07/26/16 06:00 99.8 83 22 99/64 Capillary Refill : I&O Intake and Output 07/26/16 00:00 Intake Total 1720 ml Balance 1720 ml Tube Feeding 1020 ml Other 700 ml # Voids 6 # Urine Diapers 3 # Bowel Movements 1 General: Alert, Oriented X3, Cooperative, No Acute Distress HEENT: Atraumatic, PERRLA, EOMI, Mucous Memb Moist/[place] Neck: Other (trach) Lungs: Clear to Auscultation Heart: Regular Rate Abdomen: Normal Bowel Sounds, Soft, No Tenderness, Other (Peg tube in place) Extremities: Other (trace edema) Neuro: Other (Weakness both lower legs left >rt) Results Lab Laboratory Tests 07/23/16 20:49: Glucometer 178H 07/24/16 00:17: Glucometer 115H 07/24/16 05:31: Glucometer 63L 07/24/16 06:12: Glucometer 87 07/24/16 11:01: Glucometer 95 07/24/16 16:07: Glucometer 159H 07/24/16 19:59: Glucometer 158H 07/24/16 21:37: Glucometer 165H 07/25/16 04:51: Glucometer 120H 07/25/16 11:02: Glucometer 62L 07/25/16 17:06: Glucometer 164H 07/25/16 21:50: Glucometer 323H 07/26/16 05:43: Alanine Aminotransferase (ALT/SGPT) 20, Albumin 3.5, Alkaline Phosphatase 116, Anion Gap 8, Aspartate Amino Transf (AST/SGOT) 15, BUN/Creatinine Ratio 30, Blood Urea Nitrogen 16, Calcium Level 9.3, Carbon Dioxide Level 28, Chloride Level 102, Creatinine 0.54L, Estimat Glomerular Filtration Rate > 60, Glucose Level 94, Potassium Level 4.2, Sodium Level 138, Total Bilirubin 0.2, Total Protein 7.1 07/26/16 06:03: Glucometer 84 07/26/16 11:25: Glucometer 133H 07/26/16 16:22: Glucometer 167H Assessment/Plan Assessment Comminuted left intertrochanteric fracture s/p repair OSH ortho S/P trach for pneumonia and ards S/P espohageal rupture and repair OSH-with hx of esophageal varices NPO status on tube feeds-MBS to be done with ST-done HX of substance abuse and etoh use DM meds adjusted with better control Plan Continue PT/OT/ST F/U with Lucy and check CXR-done Trial of capping trach-ongoing RT F/U Appreciate Dr Thorpe notes and orders Car Head Liner Installer has made recs re tube feeds Discussed with RN last week Appreciate Dr Hidalgo notes and orders Trend Accuchecks and adjust meds as needed Appreciate MBS report and recs Monitor for any regurg with bolus tube feeds Team Conference held yesterday-see report for full functional update and POC and ELOS F/U with SW re what discharge options possible Discharge set for 07/31/16 tentatively RAHEEM SHAW MD Jul 26, 2016 18:53
[2016-07-27] MEDS: inSUlin (REGULAR) HUMAN 1 UNIT/0.01 ML (CHARGE PER UNIT) SC SCH ×4 (06:00→20:42)
[2016-07-27 06:07] VITALS: BP 116/77
[2016-07-27] MEDS: RT-ALBUTEROL/IPRATROPIUM 3 ML (DUONEB) VIAL INH SCH ×4 (07:24→18:59)
--- NOTE | 2016-07-27 08:05 | Progress Note (SOAP) ---
Subjective Subjective/Events-last exam patient awake this morning. Patient trach was changed today. Patient alert. Patient doing good with speech exercises Objective Exam Vital Signs Date Time Temp Pulse Resp B/P Pulse Ox O2 Delivery O2 Flow Rate FiO2 07/27/16 07:24 98 6.00 28 07/27/16 06:07 97.8 81 18 116/77 100 Trach Collar 6.00 07/26/16 21:00 Trach Collar 6.00 07/26/16 18:58 98 6.00 28 07/26/16 18:20 98.1 102 16 107/67 93 07/26/16 15:43 99 6.00 28 07/26/16 11:33 97 6.00 28 07/26/16 09:00 Trach Collar 6.00 I & O 07/27/16 07:00 Intake Total 1600 ml Balance 1600 ml Capillary Refill : General Appearance: No Apparent Distress WD/WN Results Lab Laboratory Tests 07/26/16 11:25: Glucometer 133H 07/26/16 16:22: Glucometer 167H 07/26/16 19:51: Glucometer 268H 07/27/16 05:35: Glucometer 67L Assessment/Plan Assessment/Plan Assess & Plan/Chief Complaint hip fracture. Perforated esophageal ulcer . Hypertension diabetes. Previous suicide attempts. Depression. . 07/16/16. Hip fracture. Perforated esophageal ulcer. Hypertension. Diabetes. Previous suicide attempts. Depression. . 07/17/16. Hip fracture. Hypertension. Diabetes. Depression Hypertension. Diabetes.. Patient doing okay today. . 07/18/16. Hip fracture hypertension. Diabetes. Patient improving. . 07/19/16 hip fracture. Diabetes. Patient feel she is improving. Patient getting around with a walker. Sugars still elevated. More levimir. . 07/20/16. Sugars better. patient failed modified barium swallow study. Has disorder esophageal mobility. Hip fracture. Perforated esophageal ulcer. Hypertension.. . 07/23/16. Hip fracture. Perforated esophageal ulcer. Hypertension. Diabetes. Doing better. Previous suicide attempts.. . 07/24/16. Hip fracture area Perforated esophageal ulcer. Hypertension. Patient voices no complaints. . 07/25/16. Patient has no complaints. Patient tolerated this morning 07/26/16. Hip fracture. Perforated esophageal ulcer. Hypertension. Diabetes.. Patient lethargic.. . 12/09/16. Hip fracture. Perforated esophageal ulcer. Hypertension. Diabetes doing good. Patient had trach exchange today Diagnosis/Problems: Clinical Quality Measures DVT/VTE Risk/Contraindication: Risk Factor Score Per Nursin RFS Level Per Nursing on Admit: 3=High RANDI RIBEIRO DO Jul 27, 2016 08:05
--- NOTE | 2016-07-27 08:23 | PM & R (SOAP) Progress Note ---
Subjective Subjective/Events-last exam Patient was seen in her room this AM Discussed case with DR Winters and RN RT here to switch out trach Objective Exam Last Set of Vital Signs Vital Signs Date Time Temp Pulse Resp B/P Pulse Ox O2 Delivery O2 Flow Rate FiO2 07/27/16 07:24 98 6.00 28 07/27/16 06:07 97.8 81 18 116/77 Trach Collar Capillary Refill : I&O Intake and Output 07/27/16 00:00 Intake Total 1200 ml Balance 1200 ml Intake Oral 0 ml Tube Feeding 1200 ml # Voids 8 General: Alert, Oriented X3, Cooperative, No Acute Distress HEENT: Atraumatic, PERRLA, EOMI, Mucous Memb Moist/[place] Neck: Other (trach) Lungs: Clear to Auscultation Heart: Regular Rate Abdomen: Normal Bowel Sounds, Soft, No Tenderness, Other (Peg tube in place) Extremities: Other (trace edema) Neuro: Other (Weakness both lower legs left >rt) Results Lab Laboratory Tests 07/24/16 11:01: Glucometer 95 07/24/16 16:07: Glucometer 159H 07/24/16 19:59: Glucometer 158H 07/24/16 21:37: Glucometer 165H 07/25/16 04:51: Glucometer 120H 07/25/16 11:02: Glucometer 62L 07/25/16 17:06: Glucometer 164H 07/25/16 21:50: Glucometer 323H 07/26/16 05:43: Alanine Aminotransferase (ALT/SGPT) 20, Albumin 3.5, Alkaline Phosphatase 116, Anion Gap 8, Aspartate Amino Transf (AST/SGOT) 15, BUN/Creatinine Ratio 30, Blood Urea Nitrogen 16, Calcium Level 9.3, Carbon Dioxide Level 28, Chloride Level 102, Creatinine 0.54L, Estimat Glomerular Filtration Rate > 60, Glucose Level 94, Potassium Level 4.2, Sodium Level 138, Total Bilirubin 0.2, Total Protein 7.1 07/26/16 06:03: Glucometer 84 07/26/16 11:25: Glucometer 133H 07/26/16 16:22: Glucometer 167H 07/26/16 19:51: Glucometer 268H 07/27/16 05:35: Glucometer 67L Assessment/Plan Assessment Comminuted left intertrochanteric fracture s/p repair OSH ortho S/P trach for pneumonia and ards S/P espohageal rupture and repair OSH-with hx of esophageal varices NPO status on tube feeds-MBS to be done with ST-done HX of substance abuse and etoh use DM meds adjusted with better control Plan Continue PT/OT/ST F/U with Lucy and check CXR-done Trial of capping [id number] RT F/U Appreciate Dr Thorpe notes and orders Mail Handlers Supervisor has made recs re tube feeds Discussed with RN last week Appreciate Dr Hidalgo notes and orders Trend Accuchecks and adjust meds as needed Appreciate MBS report and recs Monitor for any regurg with bolus tube feeds Team Conference held 07-25-16-see report for full functional update and POC and ELOS F/U with SW re what discharge options possible Discharge set for 07/31/16 tentatively RAHEEM SHAW MD Jul 27, 2016 08:23
[2016-07-27] MEDS: NYSTATIN ORAL SUSP 5 ML UDC PO SCH ×4 (09:08→20:45)
[2016-07-27] MEDS: LORazepam 0.5 MG (ATIVAN) TABLET PEG PRN ×3 (09:08→20:43)
[2016-07-27] MEDS: CARVEDILOL 12.5 MG (COREG) TABLET PO SCH ×2 (09:08→20:44)
[2016-07-27] MEDS: ENOXAPARIN 40 MG/0.4 ML (LOVENOX) SYR SC SCH (09:09)
[2016-07-27] MEDS: ASPIRIN E.C. 81 MG (ECOTRIN) TAB PO SCH (09:09)
[2016-07-27] MEDS: inSUlin DETERMIR 1 UNIT/0.01 ML (LEVEMIR) CHARGE PER UNIT SQ SCH ×2 (09:09→20:42)
[2016-07-27] MEDS: HYDROcodone/APAP 7.5 MG/325 MG (LORTAB, LORCET PLUS) TABLET PO PRN ×3 (09:09→20:44)
--- NOTE | 2016-07-27 09:19 | Occ Therapy Progress Note ---
Therapy Progress Note Attempted to complete therapy at 0830 with pt. Pt refused stating that her stomach did not feel well and that she just wanted to rest. Changed scheduled time to see pt later in morning. DALIA ENGLE Jul 27, 2016 09:19
--- NOTE | 2016-07-27 09:45 | Speech Therapy Daily Note ---
Speech Daily Progress Note Subjective The patient was laying in bed upon entrance. The patient required moderate clinician verbal prompting for appropriate alertness levels, stating she was "tired." The patient was agreeable to dysphagia therapy on this date. To note: The patient's tracheostomy tube was changed to a Shiley, #6, Fenestrated, Uncuffed on this date (prior to the clinician's session). The patient stated the new tracheostomy is much more comfortable, however, refused speaking valve trials on this date. Objective Dysphagia Exercises: The patient demonstrated fair accuracy with dysphagia exercises following direct modeling by the clinician and continuous encouragement for participation. The patient denied any questions or concerns regarding the exercises on this date. Assessment Assessment Current Status: Fair Progress Treatment Plan Continue Plan of Care Communication Comprehension: 5 Expression: 5 Social Cognition Social Interaction: 4 Problem Solvin Memory: 4 Speech Short Term Goals Short Term Goals Short Term Goals 1. The patient will tolerate trials of the least restrictive diet without signs/ symptoms of aspiration or laryngeal penetration. 2. The patient will participate in a video swallow to definitely rule out aspiration. 3. The patient will demonstrate swallowing strategies, independently. 4. The patient will demonstrate base of tongue, pharyngeal, and laryngeal elevation exercises with 80% accuracy and mild clinician cueing. 5. The patient will demonstrate resonant voice techniques to aid in vocalizations with 80% accuracy and moderate clinician verbal cueing and direct modeling. Time Frame-STG: Two Weeks Speech Spine Specialist Goals Spine Specialist Goals 1. The patient will tolerate the least restrictive diet without signs/symptoms of aspiration or laryngeal penetration. 2. The patient will demonstrate reduced laryngeal tension for increase use of audible voice. Time Frame: Eight Weeks Comprehension: 6 Expression: 6 Social Interaction: 6 Problem Solvin Memory: 6 Speech-Plan Treatment Plan Speech Therapy Treatment Plan: Continue Plan of Care Continued skilled dysphagia therapy. Treatment Duration: Sep 07, 2016 # of days/week Four to Five Visits Per Week: Four to Five Minutes/Day (M-F): 30 Rehab Potential: Fair Safety Risks/Education Teaching Recipient: Patient Teaching Methods: Demonstration, Handout Response to Teaching: Return Demonstration, Reinforcement Needed Education Topics Provided: Dysphagia Exercises Time Speech Therapy Time In: 08:00 Speech Therapy Time Out: 08:30 Total Billed Time: 30 Billed Treatment Time 1ALEJANDRA ELIZABETH Jul 27, 2016 09:45
--- NOTE | 2016-07-27 10:27 | Physical Therapy Daily Note ---
PT Daily Note-Current Subjective At 930 AM pt. still in bed with lights off , pretends to still be asleep when this HAND KISS SETTER gently touched her and turned low lights on, spoke quietly. Pt. did awaken and stated angrily that she has an upset tummy and "will not do therapy" . After some discussion pts. nurse was consulted and joined this HAND KISS SETTER in the room to strongly encourage her participation. Pt. emotional but agreed but only if she could "stay in this room" Pain Numeric Pain Scale: 4 Location: Upper Location Body Site: Abdomen Pain Description: Ache Mental Status Attachments: Oxygen, Drains, PEG Tube, Ventilator (trach O2) Transfers Functional [place] Measure 0=Not Assessed/NA 4=Minimal Assistance 1=Total Assistance 5=Supervision or Setup 2=Maximal Assistance 6=Modified [place] 3=Moderate Assistance 7=Complete IndependenceIRFPAI Quality Coding Scale 6 Independent with activity with or without an assistive device 5 Patient requires set up or clean up by helper. Patient completes activity by themselves 4 Supervision or touching assist (CGA). [place] provide cues , steadying assist 3 The helper provides less than half the effort to complete the activity 2 The helper provides more than half the effort to complete the activity 1 Dependent. The helper does all the effort to complete an activity 7 Patient refused to complete or attempt activity 9 The patient did not perform the activity before the current illness or injury 88 Not attempted due to Medical conditions or safety concerns Transfers (B, C, W/C) (FIM): 5 Scootin Rollin Supine to/from Sit: 5 Sit to/from Stand: 5 pt. upset and all moves and TRFs were galindo and not in good keeping with safety , very impulsive etc. Gait Training Does the Patient Walk?: Yes Gait (FIM): 2 Distance (FIM): 8=279-01 ft Gait Level of Assist: 4 Gait Persons Needed: 1 Gait Assistive Device: FWW limited to pt room per her insistence, 50ft, 30ftx2 CGA and assist for attachments Exercises Supine Ex: Bridging, Ankle pumps, Quad Set, Rolling, Glut sets, Heel Slides, Short Arc Quads, Scooting, Straight leg raise, Hip abd/add Supine Reps: 15 Seated Therapy Exercises: Ankle pumps, Sit to stand, Long arc quads, Hip flexion Seated Reps: 12 Assessment Current Status: Good Progress improved DF, pt. very angry today, c/o abdominal pain, "if I could just fart or poop" ( this reported to nursing) PT Short Term Goals Short Term Goals Time Frame: Jul 26, 2016 Transfers (B,C,W/C) (FIM): 4 Gait (FIM): 4 Distance (FIM): 3=150 ft Gait Assistive Device: FWW Wheelchair Distance: 80' Stairs (FIM): 2 # of Steps: 4 Stairs Level of Assist: 4 PT Portfolio Manager Goals [facility] Goals PT [facility] Goals Time Frame: Aug 09, 2016 Transfers (B,C,W/C) (FIM): 6 Sit to Lying (QC): 6 Lying-Sitting on Side/Bed(QC): 6 Sit to Stand (QC): 6 Rollin Roll Left to Right (QC): 6 Chair/Mxm-rd-Dsezb Xfer(QC): 6 Car Transfer (QC): 5 Does the Patient Walk: Yes Gait (FIM): 6 Gait distance (FIM): 3=150 ft Walk 10 feet (QC): 6 Walk 10ft-Uneven Surface(QC): 6 Walk 50ft with 2 Turns (QC): 6 Walk 150 ft (QC): 6 Gait Level of Assist: 6 Gait Assistive Device: FWW Stairs (FIM): 5 # of Steps: 8 1 Step (curb) (QC): 5 4 Steps (QC): 5 12 Steps (QC): 88 Stairs Level Of Assist: 5 Picking up an Object (QC): 5 PT Plan Treatment/Plan Treatment Plan: Continue Plan of Care Treatment Plan: Bed Mobility, Education, Functional Activity Tavares, Functional Strength, Group Therapy (socialization, education), Gait, Safety, Therapeutic Exercise, Transfers Treatment Duration: Aug 09, 2016 Visits Per Week: 10-15 Minutes/Day (M-F): 60-90 Minutes/Day (Sat/Marcano): prn Safety Risks/Education Patient Education: Gait Training, Transfer Techniques, Issued Written HEP, Correct Positioning, Disease Process, Safety Issues Teaching Recipient: Patient Teaching Methods: Demonstration, Discussion Response to Teaching: Verbalize Understanding, Return Demonstration, Reinforcement Needed Time/GCodes Time In: 930 Time Out: 1030 Total Billed Treatment Time: 60 Total Billed Treatment 1,GT15m,FA20m,EX25m G Codes Necessary: No ADAMS MCMAHAN A HAND KISS SETTER Jul 27, 2016 10:27
--- NOTE | 2016-07-27 11:16 | Occupational Ther Daily Note ---
OT Current Status-Daily Note Subjective Pt alert, sitting up in the chair. Pt stated that she did not feel well and just wanted to relax and watch TV. OT encouraged pt to complete therapy, pt did agree to therapy. Mental Status/Objective Patient Orientation: Person, Place, Time, Situation Functional [place] Measure 0=Not Assessed/NA 4=Minimal Assistance 1=Total Assistance 5=Supervision or Setup 2=Maximal Assistance 6=Modified [place] 3=Moderate Assistance 7=Complete [place] Attachments: IV, PEG Tube ADL-Treatment Functional [place] Measure 0=Not Assessed/NA 4=Minimal Assistance 1=Total Assistance 5=Supervision or Setup 2=Maximal Assistance 6=Modified [place] 3=Moderate Assistance 7=Complete IndependenceIRFPAI Quality Coding Scale 6 Independent with activity with or without an assistive device 5 Patient requires set up or clean up by helper. Patient completes activity by themselves 4 Supervision or touching assist (CGA). [place] provide cues , steadying assist 3 The helper provides less than half the effort to complete the activity 2 The helper provides more than half the effort to complete the activity 1 Dependent. The helper does all the effort to complete an activity 7 Patient refused to complete or attempt activity 9 The patient did not perform the activity before the current illness or injury 88 Not attempted due to Medical conditions or safety concerns Other Treatment Attempted to get pt to complete different UE activities that could be completed sitting in recliner. Pt finally participated in word association task and reach grasping tasks. Pt was able to verbalize random words to prepare for a group activity later today. Pt then was able to complete UE tasks reaching and placing items in designated areas, against gravity. Pt stated that she would get dressed later to go to therapy group. After therapy, pt sitting in recliner with feet up watching TV. Call light/phone in reach. All needs met in room. OT Short Term Goals Short Term Goals Time Frame: Jul 20, 2016 Lower Body Dressing(FIM): 5 Transfers (B,C,W/C) (FIM): 4 Toilet/Commode Transfer(FIM): 4 Additional Short Term Goals: 2-Verbalize Understanding, 3-ImproveStrength/Tavares 1=Demonstrate adherence to instructed precautions during ADL tasks. 2=Patient will verbalize/demonstrate understanding of assistive devices/ modifications for ADL. 3=Patient will improve strength/tolerance for activity to enable patient to perform ADL's. OT Neon Tube Pumper Goals Neon Tube Pumper Goals Time Frame: Aug 09, 2016 Eating (FIM): 5 Eating (QC): 5 Oral Hygiene (QC): 6 Grooming(FIM): 6 Bathing(FIM): 5 Shower/Bathe Self (QC): 5 Upper Body Dressing(FIM): 6 Upper Body Dressing (QC): 6 Lower Body Dressing(FIM): 6 Lower Body Dressing (QC): 6 On/Off Footwear (QC): 6 Toileting(FIM): 6 Toileting Hygiene (QC): 6 Toilet/Commode Transfer(FIM): 6 Toilet/Commode Transfer (QC): 6 Shower Transfer(FIM): 6 Comprehension(FIM): 6 Expression (FIM): 6 Social Interaction(FIM): 6 Problem Solving(FIM): 6 Memory(FIM): 6 Improve bilat UE strength to 5/5 to help with transfers and ADLs Additional Goals: 2-Verbalize Understanding, 3-ImproveStrength/Tavares 1=Demonstrate adherence to instructed precautions during ADL tasks. 2=Patient will verbalize/demonstrate understanding of assistive devices/ modifications for ADL. 3=Patient will improve strength/tolerance for activity to enable patient to perform ADL's. OT Education/Plan Problem List/Assessment Pt would benefit from skilled OT to increase her independence in basic self care to allow her to return to son's home and decrease caregiver bruden Discharge Recommendations Plan/Recommendations: Continue POC Treatment Plan/Plan of Care Patient would benefit from OT for education, treatment and training to promote independence in ADL's, mobility, safety and/or upper extremity function for ADL' s. Plan of Care: ADL Retraining, Caregiver Training, Functional Mobility, Group Exercise/Act as Ind (education, exercise, activity tolerance, functional activities, safety), UE Funct Exercise/Act, UE Neuromus Re-Ed/Coord Treatment Duration: Aug 09, 2016 Visits Per Week: 10-11 Minutes/Day (M-F): 75-90 Minutes/Day (Sat/Marcano): PRN Agreement: Yes Rehab Potential: Fair Time/GCodes Start Time: 10:30 Stop Time: 11:15 Total Time Billed (hr/min): 45 Billed Treatment Time 1 visit-FA 3 (45 min) DALIA ENGLE Jul 27, 2016 11:16
--- NOTE | 2016-07-27 14:23 | Therapy Group Daily Note ---
Therapy Daily Group Note Other/Notes Each patient was brought to group, if they could ambulate they were brought that way and if they couldn't then they came by wheelchair. At group each patient had to state their name, where they were from and recall an interesting fact about their past. Then patients were oriented to the rehab floor by discussing the roles of each discipline of therapy, how many minutes are required, etc. Then, each patient participated in a group game/activity that involves memory, critical thinking, and cooperation. The group also had to stop occasionally for upper and lower extremity seated exercises. After group was over each patient was transported back to their room. Start Time: 13:00 Stop Time: 14:00 Total Billed Treatment Time: 60 Total Billed Treatment 1 visit GRP 60 min JOSEE SPARKS PT Jul 27, 2016 14:23
[2016-07-27 18:00] VITALS: BP 124/78
[2016-07-28 05:00] VITALS: BP 105/70
[2016-07-28] MEDS: inSUlin (REGULAR) HUMAN 1 UNIT/0.01 ML (CHARGE PER UNIT) SC SCH ×4 (06:00→20:10)
[2016-07-28] MEDS: RT-ALBUTEROL/IPRATROPIUM 3 ML (DUONEB) VIAL INH SCH ×4 (07:50→19:25)
[2016-07-28] MEDS: ASPIRIN E.C. 81 MG (ECOTRIN) TAB PO SCH (08:50)
[2016-07-28] MEDS: CARVEDILOL 12.5 MG (COREG) TABLET PO SCH ×2 (08:50→20:01)
[2016-07-28] MEDS: NYSTATIN ORAL SUSP 5 ML UDC PO SCH ×4 (08:50→20:02)
[2016-07-28] MEDS: inSUlin DETERMIR 1 UNIT/0.01 ML (LEVEMIR) CHARGE PER UNIT SQ SCH ×2 (08:50→20:10)
[2016-07-28] MEDS: ENOXAPARIN 40 MG/0.4 ML (LOVENOX) SYR SC SCH (08:51)
--- NOTE | 2016-07-28 10:34 | Physical Therapy Daily Note ---
PT Daily Note-Current Subjective States that she is tired. Pain Numeric Pain Scale: 0-No Pain Transfers Functional [place] Measure 0=Not Assessed/NA 4=Minimal Assistance 1=Total Assistance 5=Supervision or Setup 2=Maximal Assistance 6=Modified [place] 3=Moderate Assistance 7=Complete IndependenceIRFPAI Quality Coding Scale 6 Independent with activity with or without an assistive device 5 Patient requires set up or clean up by helper. Patient completes activity by themselves 4 Supervision or touching assist (CGA). [place] provide cues , steadying assist 3 The helper provides less than half the effort to complete the activity 2 The helper provides more than half the effort to complete the activity 1 Dependent. The helper does all the effort to complete an activity 7 Patient refused to complete or attempt activity 9 The patient did not perform the activity before the current illness or injury 88 Not attempted due to Medical conditions or safety concerns Transfers (B, C, W/C) (FIM): 5 Scootin Supine to/from Sit: 5 Sit to/from Stand: 5 Sit to Lying (QC): 5 Sit to Stand (QC): 5 Gait Training Does the Patient Walk?: Yes Gait (FIM): 2 Distance (FIM): 1=314-68 ft Distance: 50' x 4 Walk 50 ft with 2 Turns(QC): 4 Gait Level of Assist: 5 Gait Persons Needed: 2 Gait Assistive Device: FWW Exercises Seated Therapy Exercises: LE Protocol Seated Reps: 20 Assessment Current Status: Excellent Progress Patient did well with all activities. PT Short Term Goals Short Term Goals Time Frame: Jul 26, 2016 Transfers (B,C,W/C) (FIM): 4 Gait (FIM): 4 Distance (FIM): 3=150 ft Gait Assistive Device: FWW Wheelchair Distance: 80' Stairs (FIM): 2 # of Steps: 4 Stairs Level of Assist: 4 PT Barber Or Beauty Shop Manager Goals Assisted Goals PT Assisted Goals Time Frame: Aug 09, 2016 Transfers (B,C,W/C) (FIM): 6 Sit to Lying (QC): 6 Lying-Sitting on Side/Bed(QC): 6 Sit to Stand (QC): 6 Rollin Roll Left to Right (QC): 6 Chair/Fdi-ef-Rvslu Xfer(QC): 6 Car Transfer (QC): 5 Does the Patient Walk: Yes Gait (FIM): 6 Gait distance (FIM): 3=150 ft Walk 10 feet (QC): 6 Walk 10ft-Uneven Surface(QC): 6 Walk 50ft with 2 Turns (QC): 6 Walk 150 ft (QC): 6 Gait Level of Assist: 6 Gait Assistive Device: FWW Stairs (FIM): 5 # of Steps: 8 1 Step (curb) (QC): 5 4 Steps (QC): 5 12 Steps (QC): 88 Stairs Level Of Assist: 5 Picking up an Object (QC): 5 PT Plan Treatment/Plan Treatment Plan: Continue Plan of Care Treatment Plan: Bed Mobility, Education, Functional Activity Tavares, Functional Strength, Group Therapy (socialization, education), Gait, Safety, Therapeutic Exercise, Transfers Treatment Duration: Aug 09, 2016 Visits Per Week: 10-15 Minutes/Day (M-F): 60-90 Minutes/Day (Sat/Marcano): prn Time/GCodes Time In: 1015 Time Out: 1035 Total Billed Treatment Time: 20' Total Billed Treatment 1, GT x 15, EX x 5' G Codes Necessary: KATHERYN Christopher PT Jul 28, 2016 10:34
[2016-07-28] MEDS: HYDROcodone/APAP 7.5 MG/325 MG (LORTAB, LORCET PLUS) TABLET PO PRN ×2 (14:36→18:48)
[2016-07-28 17:50] VITALS: BP 107/69
[2016-07-28] MEDS: LORazepam 0.5 MG (ATIVAN) TABLET PEG PRN (18:48)
[2016-07-28] MEDS: CYCLOBENZAPRINE 10 MG (FLEXERIL) TAB PO PRN (20:01)
[2016-07-29 06:00] VITALS: BP 113/70
[2016-07-29] MEDS: inSUlin (REGULAR) HUMAN 1 UNIT/0.01 ML (CHARGE PER UNIT) SC SCH ×4 (06:58→20:31)
[2016-07-29] MEDS: RT-ALBUTEROL/IPRATROPIUM 3 ML (DUONEB) VIAL INH SCH ×4 (07:34→18:54)
[2016-07-29] MEDS: ASPIRIN E.C. 81 MG (ECOTRIN) TAB PO SCH (08:09)
[2016-07-29] MEDS: CARVEDILOL 12.5 MG (COREG) TABLET PO SCH ×2 (08:09→20:27)
[2016-07-29] MEDS: NYSTATIN ORAL SUSP 5 ML UDC PO SCH ×4 (08:10→20:28)
[2016-07-29] MEDS: inSUlin DETERMIR 1 UNIT/0.01 ML (LEVEMIR) CHARGE PER UNIT SQ SCH ×2 (08:10→20:28)
[2016-07-29] MEDS: ENOXAPARIN 40 MG/0.4 ML (LOVENOX) SYR SC SCH (08:10)
[2016-07-29] MEDS: HYDROcodone/APAP 7.5 MG/325 MG (LORTAB, LORCET PLUS) TABLET PO PRN ×2 (16:57→21:24)
[2016-07-29 17:53] VITALS: BP 107/71
[2016-07-29] MEDS: LORazepam 0.5 MG (ATIVAN) TABLET PEG PRN (20:27)
[2016-07-29] MEDS: CYCLOBENZAPRINE 10 MG (FLEXERIL) TAB PO PRN (22:47)
[2016-07-30 05:07] VITALS: BP 99/65
[2016-07-30] MEDS: inSUlin (REGULAR) HUMAN 1 UNIT/0.01 ML (CHARGE PER UNIT) SC SCH ×4 (05:09→20:16)
[2016-07-30] MEDS: RT-ALBUTEROL/IPRATROPIUM 3 ML (DUONEB) VIAL INH SCH ×4 (07:09→20:30)
--- NOTE | 2016-07-30 08:24 | Progress Note (SOAP) ---
Subjective Subjective/Events-last exam hip fracture. New trach set working better. Patient resting comfortably. Patient has no complaints Objective Exam Vital Signs Date Time Temp Pulse Resp B/P Pulse Ox O2 Delivery O2 Flow Rate FiO2 07/30/16 07:24 6.00 28 07/30/16 05:07 96.3 79 18 99/65 97 Trach Collar 6.00 07/30/16 02:53 6.00 28 07/29/16 20:38 Trach Collar 6.00 07/29/16 18:54 98 6.00 28 07/29/16 17:53 97.1 90 18 107/71 97 Trach Collar 6.00 07/29/16 14:55 96 6.00 28 07/29/16 10:44 93 6.00 28 07/29/16 09:42 Trach Collar 6.00 I & O 07/30/16 07:00 Intake Total 2050 ml Balance 2050 ml Capillary Refill : General Appearance: No Apparent Distress HEENT: Normal ENT Inspection Neck: Other (right in place) Respiratory: Chest Non Tender No Accessory Muscle Use No Respiratory Distress Cardiovascular: Regular Rate, Rhythm No Murmur Gastrointestinal: non tender soft other (PEG tube) Results Lab Laboratory Tests 07/29/16 11:09: Glucometer 193H 07/29/16 15:58: Glucometer 295H 07/29/16 20:26: Glucometer 341H 07/30/16 04:50: Glucometer 139H Assessment/Plan Assessment/Plan Assess & Plan/Chief Complaint hip fracture. Perforated esophageal ulcer . Hypertension diabetes. Previous suicide attempts. Depression. . 07/16/16. Hip fracture. Perforated esophageal ulcer. Hypertension. Diabetes. Previous suicide attempts. Depression. . 07/17/16. Hip fracture. Hypertension. Diabetes. Depression Hypertension. Diabetes.. Patient doing okay today. . 07/18/16. Hip fracture hypertension. Diabetes. Patient improving. . 07/19/16 hip fracture. Diabetes. Patient feel she is improving. Patient getting around with a walker. Sugars still elevated. More levimir. . 07/20/16. Sugars better. patient failed modified barium swallow study. Has disorder esophageal mobility. Hip fracture. Perforated esophageal ulcer. Hypertension.. . 07/23/16. Hip fracture. Perforated esophageal ulcer. Hypertension. Diabetes. Doing better. Previous suicide attempts.. . 07/24/16. Hip fracture area Perforated esophageal ulcer. Hypertension. Patient voices no complaints. . 07/25/16. Patient has no complaints. Patient tolerated this morning 07/26/16. Hip fracture. Perforated esophageal ulcer. Hypertension. Diabetes.. Patient lethargic.. . 12/09/16. Hip fracture. Perforated esophageal ulcer. Hypertension. Diabetes doing good. Patient had trach exchange today. . 13/12/16. Hip fracture. Perforated esophageal ulcer. Hypertension. Diabetes. Patient resting comfortably. Patient has no complaints today Diagnosis/Problems: Clinical Quality Measures DVT/VTE Risk/Contraindication: Risk Factor Score Per Nursin RFS Level Per Nursing on Admit: 3=High RANDI RIBEIRO DO Jul 30, 2016 08:24
[2016-07-30] MEDS: inSUlin DETERMIR 1 UNIT/0.01 ML (LEVEMIR) CHARGE PER UNIT SQ SCH ×2 (09:41→20:17)
[2016-07-30] MEDS: HYDROcodone/APAP 7.5 MG/325 MG (LORTAB, LORCET PLUS) TABLET PO PRN ×3 (09:41→20:17)
[2016-07-30] MEDS: CARVEDILOL 12.5 MG (COREG) TABLET PO SCH ×2 (09:41→20:17)
[2016-07-30] MEDS: ASPIRIN E.C. 81 MG (ECOTRIN) TAB PO SCH (09:41)
[2016-07-30] MEDS: ENOXAPARIN 40 MG/0.4 ML (LOVENOX) SYR SC SCH (09:42)
[2016-07-30 09:45] VITALS: BP 122/77
--- NOTE | 2016-07-30 09:45 | Speech Therapy Daily Note ---
Speech Daily Progress Note Subjective The patient was laying in bed upon entrance. The patient agreed to participate in dysphagia therapy on this date. Objective - Prior to the onset of dysphagia exercises, the patient requested to be suctioned by clinician. The clinician suctioned the patient's tracheostomy site , as well as, cleaned the patient's tracheostomy. The patient reported increased comfort following care. - Dysphagia Exercises: The patient demonstrated fair to good accuracy with dysphagia exercises following direct modeling from the clinician. The patient continued to require moderate encouragement for continued participation and continued to defer Passy Mykel Speaking Valve trials. The patient completed ten repetitions of each exercise. Assessment Assessment Current Status: Fair Progress Treatment Plan Continue Plan of Care Communication Comprehension: 5 Expression: 5 Social Cognition Social Interaction: 4 Problem Solvin Memory: 4 Speech Short Term Goals Short Term Goals Short Term Goals 1. The patient will tolerate trials of the least restrictive diet without signs/ symptoms of aspiration or laryngeal penetration. 2. The patient will participate in a video swallow to definitely rule out aspiration. 3. The patient will demonstrate swallowing strategies, independently. 4. The patient will demonstrate base of tongue, pharyngeal, and laryngeal elevation exercises with 80% accuracy and mild clinician cueing. 5. The patient will demonstrate resonant voice techniques to aid in vocalizations with 80% accuracy and moderate clinician verbal cueing and direct modeling. Time Frame-STG: Two Weeks Speech Long-Term Goals Certified Phlebotomy Technician Goals 1. The patient will tolerate the least restrictive diet without signs/symptoms of aspiration or laryngeal penetration. 2. The patient will demonstrate reduced laryngeal tension for increase use of audible voice. Time Frame: Eight Weeks Comprehension: 6 Expression: 6 Social Interaction: 6 Problem Solvin Memory: 6 Speech-Plan Treatment Plan Speech Therapy Treatment Plan: Continue Plan of Care Skilled dysphagia therapy to focus on pharyngeal and laryngeal strengthening. Treatment Duration: Sep 07, 2016 # of days/week Four to Five. Visits Per Week: Four to Five Minutes/Day (M-F): 30 Rehab Potential: Fair Safety Risks/Education Teaching Recipient: Patient Teaching Methods: Demonstration, Handout Response to Teaching: Return Demonstration, Reinforcement Needed Education Topics Provided: Dysphagia Exercises Time Speech Therapy Time In: 09:00 Speech Therapy Time Out: 09:30 Total Billed Time: 30 Billed Treatment Time ALEJANDRA Hernandez AUNG FRAGA Jul 30, 2016 09:45
[2016-07-30] MEDS: NYSTATIN ORAL SUSP 5 ML UDC PO SCH ×4 (09:46→20:17)
--- NOTE | 2016-07-30 13:17 | Occupational Ther Daily Note ---
OT Current Status-Daily Note Subjective Pt seen in room, up in bed, agreeable to OT. No pain mentioned. Appearance Alert, cooperative. Vocal - has speaking valve in place Mental Status/Objective Functional [place] Measure 0=Not Assessed/NA 4=Minimal Assistance 1=Total Assistance 5=Supervision or Setup 2=Maximal Assistance 6=Modified [place] 3=Moderate Assistance 7=Complete [place] Attachments: PEG Tube, Other-See Comments (trach) ADL-Treatment Pt continues to be impulsive when walking with FWW and required SBA for safety with mobility components of ADLs Functional [place] Measure 0=Not Assessed/NA 4=Minimal Assistance 1=Total Assistance 5=Supervision or Setup 2=Maximal Assistance 6=Modified [place] 3=Moderate Assistance 7=Complete IndependenceIRFPAI Quality Coding Scale 6 Independent with activity with or without an assistive device 5 Patient requires set up or clean up by helper. Patient completes activity by themselves 4 Supervision or touching assist (CGA). [place] provide cues , steadying assist 3 The helper provides less than half the effort to complete the activity 2 The helper provides more than half the effort to complete the activity 1 Dependent. The helper does all the effort to complete an activity 7 Patient refused to complete or attempt activity 9 The patient did not perform the activity before the current illness or injury 88 Not attempted due to Medical conditions or safety concerns Eating (FIM): 1 (Pt is NPO. has feeding tube which she cannot manage herself) Eating (QC): 88 (Unsafe to eat due to swallowing precautions) Grooming (FIM): 5 (setup to brush hair, wash face and hands. pt has dentures which she doesn't wear) Oral Hygiene (QC): 5 (Pt has the ability to remove and replace dentures and clean them, although she doesn't have them here. She can swab her mouth out if items are present) Toileting Hygiene (QC): 4 (SBA for safety for standing to manage clothing and hygiene. BSC over toilet, FWW) Bathing (FIM): 5 (setup, supervision due to impulsivity. Washed and dried all parts. Had help rinsing hair. Shower bench, hand held shower, grab bars. ) Bathing Location: L Arm, R Arm, L Upper Leg, R Upper Leg, L Lower Leg ( including foot), R Lower Leg (including foot), Chest, Abdomen, Buttocks, Perineal Area Upper Body (FIM): 5 (setup to don shirt) Upper Body Dressing (QC): 5 (setup) Lower Body Dressing (FIM): 5 (SBA to stand to pull pants up and down. Able to get skipper socks on, using soft sock aid. FWW. Some reminders for modified technique. Limited by L hip ROM) Lower Body Dressing (QC): 4 (SBA for safety for standing to pull pants up) On/Off Footwear (QC): 5 (setup using soft sock aid) Toileting (FIM): 5 (SBA for safety for standing. BSC over toilet. FWW) Toilet/Commode Transfer (FIM): 5 (Sba for safety, BSC over toilet, FWW) Toilet Transfer (QC): 4 (SBA for safety due to impulsivity, BSC over toilet, FWW) Shower Transfer(FIM): 5 (SBA for safety due to impulsivity. SHower bench, grab bars) Other Treatment Pt worked on bilat UE strengthening with red theraputty with beads in it and with yellow theraband, 15 reps 4 different exercises. UE ex to strengthen arms for standing during ADLs and walking with FWW. Pt left up in recliner, all needs met. OT Short Term Goals Short Term Goals Time Frame: Jul 20, 2016 Lower Body Dressing(FIM): 5 Transfers (B,C,W/C) (FIM): 4 Toilet/Commode Transfer(FIM): 4 Additional Short Term Goals: 2-Verbalize Understanding, 3-ImproveStrength/Tavares 1=Demonstrate adherence to instructed precautions during ADL tasks. 2=Patient will verbalize/demonstrate understanding of assistive devices/ modifications for ADL. 3=Patient will improve strength/tolerance for activity to enable patient to perform ADL's. OT Senior Training And Development Rep Goals Residential Goals Time Frame: Aug 09, 2016 Eating (FIM): 5 Eating (QC): 5 Oral Hygiene (QC): 6 Grooming(FIM): 6 Bathing(FIM): 5 Shower/Bathe Self (QC): 5 Upper Body Dressing(FIM): 6 Upper Body Dressing (QC): 6 Lower Body Dressing(FIM): 6 Lower Body Dressing (QC): 6 On/Off Footwear (QC): 6 Toileting(FIM): 6 Toileting Hygiene (QC): 6 Toilet/Commode Transfer(FIM): 6 Toilet/Commode Transfer (QC): 6 Shower Transfer(FIM): 6 Comprehension(FIM): 6 Expression (FIM): 6 Social Interaction(FIM): 6 Problem Solving(FIM): 6 Memory(FIM): 6 Improve bilat UE strength to 5/5 to help with transfers and ADLs Additional Goals: 2-Verbalize Understanding, 3-ImproveStrength/Tavares 1=Demonstrate adherence to instructed precautions during ADL tasks. 2=Patient will verbalize/demonstrate understanding of assistive devices/ modifications for ADL. 3=Patient will improve strength/tolerance for activity to enable patient to perform ADL's. OT Education/Plan Problem List/Assessment Pt would benefit from skilled OT to increase her independence in basic self care to allow her to return to son's home and decrease caregiver bruden Discharge Recommendations Plan/Recommendations: Continue POC Treatment Plan/Plan of Care Patient would benefit from OT for education, treatment and training to promote independence in ADL's, mobility, safety and/or upper extremity function for ADL' s. Plan of Care: ADL Retraining, Caregiver Training, Functional Mobility, Group Exercise/Act as Ind (education, exercise, activity tolerance, functional activities, safety), UE Funct Exercise/Act, UE Neuromus Re-Ed/Coord Treatment Duration: Aug 09, 2016 Visits Per Week: 10-11 Minutes/Day (M-F): 75-90 Minutes/Day (Sat/Marcano): PRN Agreement: Yes Rehab Potential: Fair Time/GCodes Start Time: 09:30 Stop Time: 10:15 Total Time Billed (hr/min): 45 Billed Treatment Time visit, 20 minutes exercise, 25 minutes ADL WARD PARISI OT Jul 30, 2016 13:17
--- NOTE | 2016-07-30 13:27 | Physical Therapy Daily Note ---
PT Daily Note-Current Subjective Pt is L side lying in bed upon arrival. Pt reports pain of 7/10 in L calf and just received pain med. Pt agreed to PT. Pain Numeric Pain Scale: 7 Location: Left Location Body Site: Calf Pain Description: Ache Mental Status Patient Orientation: Person, Place, Situation Attachments: Oxygen, Drains, PEG Tube, Other-See Comments (Trach.) Transfers Functional [place] Measure 0=Not Assessed/NA 4=Minimal Assistance 1=Total Assistance 5=Supervision or Setup 2=Maximal Assistance 6=Modified [place] 3=Moderate Assistance 7=Complete IndependenceIRFPAI Quality Coding Scale 6 Independent with activity with or without an assistive device 5 Patient requires set up or clean up by helper. Patient completes activity by themselves 4 Supervision or touching assist (CGA). [place] provide cues , steadying assist 3 The helper provides less than half the effort to complete the activity 2 The helper provides more than half the effort to complete the activity 1 Dependent. The helper does all the effort to complete an activity 7 Patient refused to complete or attempt activity 9 The patient did not perform the activity before the current illness or injury 88 Not attempted due to Medical conditions or safety concerns Transfers (B, C, W/C) (FIM): 5 Scootin Rollin Roll Left to Right (QC): 5 Supine to/from Sit: 5 Sit to/from Stand: 5 Sit to Lying (QC): 5 Sit to Stand (QC): 5 Chair/Xbv-lf-Falqg Xfer(QC): 5 Bed to/from Chair: 5 Car Transfer (QC): 88 Pt did not have a car available for transfer as well as raining outside and a little chilly fo did not attempt for safety. Weight Bearing Weight Bearing Restriction: Full Weight Bearing Location Restriction: LE Bilateral Gait Training Does the Patient Walk?: Yes Distance (FIM): 3=150 ft Distance: 150 + 150= 300 Walk 10 feet (QC): 5 Walk 50 ft with 2 Turns(QC): 5 Walk 150 ft (QC): 4 Walking 10ft/uneven surface-QC: 4 Gait Level of Assist: 5 Gait Persons Needed: 1 Gait Assistive Device: FWW Pt fatigues easy and requires rest breaks. Pt still has slight foot drop during ambualtion. Pt is steady, no LOB. Pt's alexa is slow. Stair Training Stair Training: Handrails/: 2 handrails Stairs (FIM): 2 #of Steps: 4 1 Step (curb) (QC): 4 4 Steps (QC): 4 12 Steps (QC): 88 Stairs: Pattern: Step to Level of Assist: 4 Balance Picking up an Object (QC): 88 Special Test Comments Did not attempt for safety due to unsteady when bending over. Exercises Seated Therapy Exercises: Ankle pumps, Sit to stand, Long arc quads, Hip flexion, Kicking activity Seated Reps: 20 Treatments Pt transfers from supine to EOB at [facility] then EOB to standing using FWW at [facility]. Pt ambulates to Therapy Gym using FWW at [facility]. Pt rests upon arrival. Pt then attempts stairs at CGA-Min A using 2 hand rails in step to gait pattern. Pt reports feeling dizzy, disoriented and a little foggy and requests to return to room to regroup. Pt ask for PT to return in approx. 30m to resume PT tx. Upon return, pt resumed tx with transfer to standing using FWW to standing and walked in [facility] for approx. 150' using FWW at [facility] then needed short rest. Pt walked again for additional 150' before rest. Pt then wanted to return to room. Pt transferred back to recliner at [facility] then completed seated EX in recliner. Pt asked for feet to be raised up and chair reclined with pillow under head, low back and legs. Pt was left with all needs met at end of tx. Assessment Pt reports feeling dizzy, disoriented & foggy early in tx but after rest, pt was able to resume tx. Pt is transferring and ambulating better with more strength. PT Short Term Goals Short Term Goals Time Frame: Jul 26, 2016 Transfers (B,C,W/C) (FIM): 4 Gait (FIM): 4 Distance (FIM): 3=150 ft Gait Assistive Device: FWW Wheelchair Distance: 80' Stairs (FIM): 2 # of Steps: 4 Stairs Level of Assist: 4 PT Hopper Filler Goals Half-Way Goals PT Hopper Filler Goals Time Frame: Aug 09, 2016 Transfers (B,C,W/C) (FIM): 6 Sit to Lying (QC): 6 Lying-Sitting on Side/Bed(QC): 6 Sit to Stand (QC): 6 Rollin Roll Left to Right (QC): 6 Chair/Foi-tv-Erngv Xfer(QC): 6 Car Transfer (QC): 5 Does the Patient Walk: Yes Gait (FIM): 6 Gait distance (FIM): 3=150 ft Walk 10 feet (QC): 6 Walk 10ft-Uneven Surface(QC): 6 Walk 50ft with 2 Turns (QC): 6 Walk 150 ft (QC): 6 Gait Level of Assist: 6 Gait Assistive Device: FWW Stairs (FIM): 5 # of Steps: 8 1 Step (curb) (QC): 5 4 Steps (QC): 5 12 Steps (QC): 88 Stairs Level Of Assist: 5 Picking up an Object (QC): 5 PT Plan Problem List Problem List: Activity Tolerance, Safety, Balance, Gait Treatment/Plan Treatment Plan: Continue Plan of Care Treatment Plan: Bed Mobility, Education, Functional Activity Tavares, Functional Strength, Group Therapy (socialization, education), Gait, Safety, Therapeutic Exercise, Transfers Treatment Duration: Aug 09, 2016 Visits Per Week: 10-15 Minutes/Day (M-F): 60-90 Minutes/Day (Sat/Marcano): prn Safety Risks/Education Patient Education: Gait Training, Transfer Techniques, Correct Positioning, Safety Issues Teaching Recipient: Patient Teaching Methods: Discussion Response to Teaching: Verbalize Understanding Time/GCodes Time In: 1045 Time Out: 1215 Total Billed Treatment Time: 60 Total Billed Treatment 2 visits, FA X2 (30m), GT (15m) & EX (15m) 1st tx: 5742-5381 & 2nd tx: 9939-0233 (60m total) PAULINE DE LA PAZ PTA Jul 30, 2016 13:27
--- NOTE | 2016-07-30 14:51 | Therapy Group Daily Note ---
Therapy Daily Group Note Patient Education Topic Other List Below (memory strategies ) Exercises LE Seated Exercise, UE Exercise Other/Notes Pt. attended group session this date, came to and from in w/c with assist. Pt. participated well introducing self, giving full effort for vocalization, joining in memory activity focused on memories of other group members introduction of themselves . Pts participated in seated U&L extremity therex that was lead by pts reading and demonstrating from exercise instruction cards. This pt. lead her exercise well. Other memory activities included matching image game. Pt. did very well at this. Pt required min assist to room to bed with call naik at hand after. Start Time: 13:00 Stop Time: 14:05 Total Billed Treatment Time: 65 Total Billed Treatment 1,GRP ADAMS MCMAHAN AUTOMOTIVE MECHANIC Jul 30, 2016 14:51
[2016-07-30 17:55] VITALS: BP 116/73
[2016-07-30] MEDS: LORazepam 0.5 MG (ATIVAN) TABLET PEG PRN (20:17)
--- NOTE | 2016-07-30 20:47 | PM & R (SOAP) Progress Note ---
Subjective Subjective/Events-last exam Patient was seen in her room this evening Patient SBA for transfers Tolerating Trach capping well Objective Exam Last Set of Vital Signs Vital Signs Date Time Temp Pulse Resp B/P Pulse Ox O2 Delivery O2 Flow Rate FiO2 07/30/16 17:55 97.5 83 18 116/73 96 Room Air 07/30/16 11:18 Capillary Refill : I&O Intake and Output 07/30/16 00:00 Intake Total 2000 ml Balance 2000 ml Intake Oral 0 ml Tube Feeding 1200 ml Other 800 ml # Voids 5 # Urine Diapers 4 General: Alert, Oriented X3, Cooperative, No Acute Distress HEENT: Atraumatic, PERRLA, EOMI, Mucous Memb Moist/[place] Neck: Other (trach) Lungs: Clear to Auscultation Heart: Regular Rate Abdomen: Normal Bowel Sounds, Soft, No Tenderness, Other (Peg tube in place) Extremities: Other (trace edema) Neuro: Other (Weakness both lower legs left >rt) Results Lab Laboratory Tests 07/28/16 05:53: Glucometer 181H 07/28/16 11:15: Glucometer 211H 07/28/16 16:01: Glucometer 109 07/28/16 20:04: Glucometer 287H 07/29/16 05:42: Glucometer 219H 07/29/16 11:09: Glucometer 193H 07/29/16 15:58: Glucometer 295H 07/29/16 20:26: Glucometer 341H 07/30/16 04:50: Glucometer 139H 07/30/16 11:02: Glucometer 200H 07/30/16 16:03: Glucometer 340H 07/30/16 20:01: Glucometer 222H Assessment/Plan Assessment Comminuted left intertrochanteric fracture s/p repair OSH ortho S/P trach for pneumonia and ards-now capped S/P espohageal rupture and repair OSH-with hx of esophageal varices NPO status on tube feeds-MBS to be done with ST-done HX of substance abuse and etoh use DM meds adjusted with better control Plan Continue PT/OT/ST F/U with Lucy and check CXR-done Trial of capping [id number] RT F/U Appreciate Dr Thorpe notes and orders Propellant Charge Zone Assembler has made recs re tube feeds Discussed with RN last week Appreciate Dr Hidalgo notes and orders Trend Accuchecks and adjust meds as needed Appreciate MBS report and recs Monitor for any regurg with bolus tube feeds F/U with SW re what discharge options possible Next Team Conference 08/01/16 RAHEEM SHAW MD Jul 30, 2016 20:47
[2016-07-30] MEDS: CYCLOBENZAPRINE 10 MG (FLEXERIL) TAB PO PRN (22:08)
[2016-07-31 04:55] VITALS: BP 106/71
[2016-07-31] MEDS: inSUlin (REGULAR) HUMAN 1 UNIT/0.01 ML (CHARGE PER UNIT) SC SCH ×4 (05:14→21:14)
[2016-07-31] MEDS: RT-ALBUTEROL/IPRATROPIUM 3 ML (DUONEB) VIAL INH SCH ×5 (07:26→20:21)
--- NOTE | 2016-07-31 07:26 | Pulmonary Progress Note ---
Subjective Subjective/Events-last exam No complications noted. Exam Exam Vital Signs Date Time Temp Pulse Resp B/P Pulse Ox O2 Delivery O2 Flow Rate FiO2 07/31/16 04:55 97.9 99 18 106/71 97 Trach Collar 6.00 07/31/16 02:49 93 6.00 28 07/30/16 22:26 97 6.00 28 07/30/16 21:00 Trach Collar 6.00 07/30/16 20:30 94 07/30/16 17:55 97.5 83 18 116/73 96 Room Air 07/30/16 16:10 92 07/30/16 11:18 93 07/30/16 09:45 78 122/77 07/30/16 08:00 Trach Collar 6.00 I & O 07/31/16 07:00 Intake Total 2100 ml Balance 2100 ml General Appearance: No Apparent Distress HEENT: Normal ENT Inspection Neck: Other (right in place) Respiratory: Chest Non Tender No Accessory Muscle Use No Respiratory Distress Cardiovascular: Regular Rate, Rhythm No Murmur Gastrointestinal: non tender soft other (PEG tube) Assessment/Plan Assessment/Plan Tracheostomy s/p ARDS -Pt is doing better with speaking valve Dysphagia - high risk for aspiration -Pt failed barium swallow. She is high risk for aspiration. will change to uncuffed fenestrated tracheostomy tube. RT has ordered tube. Clinical Quality Measures DVT/VTE Risk/Contraindication: Risk Factor Score Per Nursin RFS Level Per Nursing on Admit: 3=High AUDELIA JUSTICE DO Jul 31, 2016 07:26
--- NOTE | 2016-07-31 08:24 | Progress Note (SOAP) ---
Subjective Subjective/Events-last exam hip fracture. Trach.. Patient resting comfortably. Decrease the pain medication since patient sleepy Objective Exam Vital Signs Date Time Temp Pulse Resp B/P Pulse Ox O2 Delivery O2 Flow Rate FiO2 07/31/16 07:26 97 6.00 28 07/31/16 04:55 97.9 99 18 106/71 97 Trach Collar 6.00 07/31/16 02:49 93 6.00 28 07/30/16 22:26 97 6.00 28 07/30/16 21:00 Trach Collar 6.00 07/30/16 20:30 94 07/30/16 17:55 97.5 83 18 116/73 96 Room Air 07/30/16 16:10 92 07/30/16 11:18 93 07/30/16 09:45 78 122/77 I & O 07/31/16 07:00 Intake Total 2100 ml Balance 2100 ml Capillary Refill : General Appearance: No Apparent Distress WD/WN Results Lab Laboratory Tests 07/30/16 11:02: Glucometer 200H 07/30/16 16:03: Glucometer 340H 07/30/16 20:01: Glucometer 222H 07/31/16 04:44: Glucometer 94 Assessment/Plan Assessment/Plan Assess & Plan/Chief Complaint hip fracture. Perforated esophageal ulcer . Hypertension diabetes. Previous suicide attempts. Depression. . 07/16/16. Hip fracture. Perforated esophageal ulcer. Hypertension. Diabetes. Previous suicide attempts. Depression. . 07/17/16. Hip fracture. Hypertension. Diabetes. Depression Hypertension. Diabetes.. Patient doing okay today. . 07/18/16. Hip fracture hypertension. Diabetes. Patient improving. . 07/19/16 hip fracture. Diabetes. Patient feel she is improving. Patient getting around with a walker. Sugars still elevated. More levimir. . 07/20/16. Sugars better. patient failed modified barium swallow study. Has disorder esophageal mobility. Hip fracture. Perforated esophageal ulcer. Hypertension.. . 07/23/16. Hip fracture. Perforated esophageal ulcer. Hypertension. Diabetes. Doing better. Previous suicide attempts.. . 07/24/16. Hip fracture area Perforated esophageal ulcer. Hypertension. Patient voices no complaints. . 07/25/16. Patient has no complaints. Patient tolerated this morning 07/26/16. Hip fracture. Perforated esophageal ulcer. Hypertension. Diabetes.. Patient lethargic.. . 12/09/16. Hip fracture. Perforated esophageal ulcer. Hypertension. Diabetes doing good. Patient had trach exchange today. . 13/12/16. Hip fracture. Perforated esophageal ulcer. Hypertension. Diabetes. Patient resting comfortably. Patient has no complaints today. . 07/31/16. Hip fracture. Perforated esophageal ulcer. Hypertension. Diabetes. Patient sleeping. To decrease the pain pills. Diagnosis/Problems: Clinical Quality Measures DVT/VTE Risk/Contraindication: Risk Factor Score Per Nursin RFS Level Per Nursing on Admit: 3=High RANDI RIBEIRO DO Jul 31, 2016 08:24
[2016-07-31] MEDS: inSUlin DETERMIR 1 UNIT/0.01 ML (LEVEMIR) CHARGE PER UNIT SQ SCH ×2 (09:10→21:14)
[2016-07-31] MEDS: ENOXAPARIN 40 MG/0.4 ML (LOVENOX) SYR SC SCH (09:10)
[2016-07-31] MEDS: NYSTATIN ORAL SUSP 5 ML UDC PO SCH ×4 (09:11→21:14)
[2016-07-31] MEDS: CARVEDILOL 12.5 MG (COREG) TABLET PO SCH ×2 (09:11→21:15)
[2016-07-31] MEDS: ASPIRIN E.C. 81 MG (ECOTRIN) TAB PO SCH (09:11)
[2016-07-31] MEDS: HYDROcodone/APAP 7.5 MG/325 MG (LORTAB, LORCET PLUS) TABLET PO PRN ×3 (09:53→21:15)
--- NOTE | 2016-07-31 10:16 | Physical Therapy Daily Note ---
PT Daily Note-Current Subjective Patient in bed pre tx, agrees to PT after some encouragement. Patient very reluctant to participate. Poor motivation. Patient has pain of 6/10 in her left leg, nurse notified and she got some pain meds. Appearance Patient in chair in therapy gym post tx, she has OT right after PT. Mental Status Patient Orientation: Person, Place, Situation Attachments: PEG Tube Transfers Functional [place] Measure 0=Not Assessed/NA 4=Minimal Assistance 1=Total Assistance 5=Supervision or Setup 2=Maximal Assistance 6=Modified [place] 3=Moderate Assistance 7=Complete IndependenceIRFPAI Quality Coding Scale 6 Independent with activity with or without an assistive device 5 Patient requires set up or clean up by helper. Patient completes activity by themselves 4 Supervision or touching assist (CGA). [place] provide cues , steadying assist 3 The helper provides less than half the effort to complete the activity 2 The helper provides more than half the effort to complete the activity 1 Dependent. The helper does all the effort to complete an activity 7 Patient refused to complete or attempt activity 9 The patient did not perform the activity before the current illness or injury 88 Not attempted due to Medical conditions or safety concerns Transfers (B, C, W/C) (FIM): 4 Scootin Rollin Roll Left to Right (QC): 6 Supine to/from Sit: 6 Sit to/from Stand: 4 Sit to Lying (QC): 6 Sit to Stand (QC): 6 Chair/Yzp-bz-Xcupp Xfer(QC): 4 Bed to/from Chair: 4 Patient performs bed mobility with mod I, sit to stand and transfers with CGA. Patient needs cues for safety and hand placement. Gait Training Does the Patient Walk?: Yes Gait (FIM): 4 Distance: 150'x4 Walk 10 feet (QC): 4 Walk 50 ft with 2 Turns(QC): 4 Walk 150 ft (QC): 4 Walking 10ft/uneven surface-QC: 4 Gait Level of Assist: 4 Gait Persons Needed: 1 Gait Assistive Device: FWW Patient ambulates 150' with a rolling walker with CGA, she is very unsteady and impulsive but did not have a LOB. She also can ambulate 10' over an uneven surface like carpet and go 50' with at least 2 turns of 90 degrees. She has foot drop on the left and knee hyperextension during ambulation. Stair Training Stair Training: Handrails/: 2 handrails Stairs (FIM): 2 #of Steps: 4 1 Step (curb) (QC): 3 4 Steps (QC): 3 12 Steps (QC): 88 Stairs: Pattern: Step to Level of Assist: 4 Patient can go up and down 4 steps using 2 handrails with min assist. She is very anxious and unsteady. She is impulsive and needs cues for safety and foot placement. Exercises NuStep Minutes: 15 NuStep Workload: 3 Treatments ambulation, patient was toileted once, bed mobility and transfers, stair training, functional strengthening Assessment Current Status: Poor Progress Patient has poor safety awareness. She does not pay attention to her surroundings and will go through tight spaces while her therapist struggles to keep her balance and safety. She will choose a chair without arm rests to sit in instead of a safer one. She does not pay attention to her attachments. She is impulsive and moves quickly and without regard for her safety. PT Short Term Goals Short Term Goals Time Frame: Jul 26, 2016 Transfers (B,C,W/C) (FIM): 4 Gait (FIM): 4 Distance (FIM): 3=150 ft Gait Assistive Device: FWW Wheelchair Distance: 80' Stairs (FIM): 2 # of Steps: 4 Stairs Level of Assist: 4 PT Assisted Goals Assisted Goals PT Human Resource Adviser Goals Time Frame: Aug 09, 2016 Transfers (B,C,W/C) (FIM): 6 Sit to Lying (QC): 6 (met) Lying-Sitting on Side/Bed(QC): 6 (met) Sit to Stand (QC): 6 Rollin (met) Roll Left to Right (QC): 6 (met) Chair/Qmd-ou-Yvbsq Xfer(QC): 6 Car Transfer (QC): 5 Does the Patient Walk: Yes Gait (FIM): 6 Gait distance (FIM): 3=150 ft Walk 10 feet (QC): 6 Walk 10ft-Uneven Surface(QC): 6 Walk 50ft with 2 Turns (QC): 6 Walk 150 ft (QC): 6 Gait Level of Assist: 6 Gait Assistive Device: FWW Stairs (FIM): 5 # of Steps: 8 1 Step (curb) (QC): 5 4 Steps (QC): 5 12 Steps (QC): 88 Stairs Level Of Assist: 5 Picking up an Object (QC): 5 PT Plan Problem List Problem List: Activity Tolerance, Functional Strength, Safety, Balance, Gait, Transfer, Bed Mobility Treatment/Plan Treatment Plan: Continue Plan of Care Treatment Plan: Bed Mobility, Education, Functional Activity Tavares, Functional Strength, Group Therapy (socialization, education), Gait, Safety, Therapeutic Exercise, Transfers Treatment Duration: Aug 09, 2016 Visits Per Week: 10-15 Minutes/Day (M-F): 60-90 Minutes/Day (Sat/Marcano): prn Safety Risks/Education Patient Education: Gait Training, Transfer Techniques, Steps, Safety Issues Teaching Recipient: Patient Teaching Methods: Handout, Discussion Response to Teaching: Reinforcement Needed Time/GCodes Time In: 930 Time Out: 1015 Total Billed Treatment Time: 45 Total Billed Treatment 1 visit EX 15 min GT 30 min JOSEE SPARKS PT Jul 31, 2016 10:16
--- NOTE | 2016-07-31 11:25 | Occupational Ther Daily Note ---
OT Current Status-Daily Note Subjective Pt seen in gym after PT. Agreeable to OT. No pain mentioned Appearance Alert, cooperative Mental Status/Objective Functional [place] Measure 0=Not Assessed/NA 4=Minimal Assistance 1=Total Assistance 5=Supervision or Setup 2=Maximal Assistance 6=Modified [place] 3=Moderate Assistance 7=Complete [place] Attachments: PEG Tube, Other-See Comments (trach - capped) ADL-Treatment Functional [place] Measure 0=Not Assessed/NA 4=Minimal Assistance 1=Total Assistance 5=Supervision or Setup 2=Maximal Assistance 6=Modified [place] 3=Moderate Assistance 7=Complete IndependenceIRFPAI Quality Coding Scale 6 Independent with activity with or without an assistive device 5 Patient requires set up or clean up by helper. Patient completes activity by themselves 4 Supervision or touching assist (CGA). [place] provide cues , steadying assist 3 The helper provides less than half the effort to complete the activity 2 The helper provides more than half the effort to complete the activity 1 Dependent. The helper does all the effort to complete an activity 7 Patient refused to complete or attempt activity 9 The patient did not perform the activity before the current illness or injury 88 Not attempted due to Medical conditions or safety concerns Other Treatment Pt was scheduled for discharge today but now uncertain, with DC plans pending. Pt did 16 minutes bilat UE exercise with arm bike set at 15W resistance ( increased resistance for entire time), with one brief recovery period. Also did graded clothespins and nuts/bolts with 1# weight on each arm. Exercise and activities to help with safety with walking and ADLs. At end of tx, pt stood with CGA and walked CGA, FWW to room, OT bringing kangaroo pump. She walked impulsively fast but did not lose her balance. Skilled cue to reach back with arms before sitting, which she did not do. Pt left up in recliner, all needs met , pump plugged in. Education OT Patient Education: Exercise program, Progress toward Goal/Update tx plan, Safety issues, Transfer techniques OT Short Term Goals Short Term Goals Time Frame: Jul 20, 2016 Lower Body Dressing(FIM): 5 Transfers (B,C,W/C) (FIM): 4 Toilet/Commode Transfer(FIM): 4 Additional Short Term Goals: 2-Verbalize Understanding, 3-ImproveStrength/Tavares 1=Demonstrate adherence to instructed precautions during ADL tasks. 2=Patient will verbalize/demonstrate understanding of assistive devices/ modifications for ADL. 3=Patient will improve strength/tolerance for activity to enable patient to perform ADL's. OT Brake Linings Coater Goals Mcfp Goals Time Frame: Aug 09, 2016 Eating (FIM): 5 Eating (QC): 5 Oral Hygiene (QC): 6 Grooming(FIM): 6 Bathing(FIM): 5 Shower/Bathe Self (QC): 5 Upper Body Dressing(FIM): 6 Upper Body Dressing (QC): 6 Lower Body Dressing(FIM): 6 Lower Body Dressing (QC): 6 On/Off Footwear (QC): 6 Toileting(FIM): 6 Toileting Hygiene (QC): 6 Toilet/Commode Transfer(FIM): 6 Toilet/Commode Transfer (QC): 6 Shower Transfer(FIM): 6 Comprehension(FIM): 6 Expression (FIM): 6 Social Interaction(FIM): 6 Problem Solving(FIM): 6 Memory(FIM): 6 Improve bilat UE strength to 5/5 to help with transfers and ADLs Additional Goals: 2-Verbalize Understanding, 3-ImproveStrength/Tavares 1=Demonstrate adherence to instructed precautions during ADL tasks. 2=Patient will verbalize/demonstrate understanding of assistive devices/ modifications for ADL. 3=Patient will improve strength/tolerance for activity to enable patient to perform ADL's. OT Education/Plan Problem List/Assessment Pt would benefit from skilled OT to increase her independence in basic self care to allow her to return to son's home and decrease caregiver bruden Discharge Recommendations Plan/Recommendations: Continue POC Treatment Plan/Plan of Care Patient would benefit from OT for education, treatment and training to promote independence in ADL's, mobility, safety and/or upper extremity function for ADL' s. Plan of Care: ADL Retraining, Caregiver Training, Functional Mobility, Group Exercise/Act as Ind (education, exercise, activity tolerance, functional activities, safety), UE Funct Exercise/Act, UE Neuromus Re-Ed/Coord Treatment Duration: Aug 09, 2016 Visits Per Week: 10-11 Minutes/Day (M-F): 75-90 Minutes/Day (Sat/Marcano): PRN Agreement: Yes Rehab Potential: Fair Time/GCodes Start Time: 10:15 Stop Time: 11:00 Total Time Billed (hr/min): 45 Billed Treatment Time visit, 45 minutes exercise WARD PARISI OT Jul 31, 2016 11:25
--- NOTE | 2016-07-31 13:35 | PM & R (SOAP) Progress Note ---
Subjective Subjective/Events-last exam Patient was seen in her room this afternoon Discussed case with RICHARD Patient doesnt want to go to [place] in her home community but her family does Patient still on Tube feeds and Her Insurance wont pay for Home Tube feeds.Patient wants to go home but would be ill advised without safe nutritional support Objective Exam Last Set of Vital Signs Vital Signs Date Time Temp Pulse Resp B/P Pulse Ox O2 Delivery O2 Flow Rate FiO2 07/31/16 09:00 Trach Collar 07/31/16 07:26 97 6.00 28 07/31/16 04:55 97.9 99 18 106/71 Capillary Refill : I&O Intake and Output 07/31/16 00:00 Intake Total 2100 ml Balance 2100 ml Intake Oral 0 ml Tube Feeding 1200 ml Other 900 ml # Voids 8 General: Alert, Oriented X3, Cooperative, No Acute Distress HEENT: Atraumatic, PERRLA, EOMI, Mucous Memb Moist/[place] Neck: Other (trach) Lungs: Clear to Auscultation Heart: Regular Rate Abdomen: Normal Bowel Sounds, Soft, No Tenderness, Other (Peg tube in place) Extremities: Other (trace edema) Neuro: Other (Weakness both lower legs left >rt) Results Lab Laboratory Tests 07/28/16 16:01: Glucometer 109 07/28/16 20:04: Glucometer 287H 07/29/16 05:42: Glucometer 219H 07/29/16 11:09: Glucometer 193H 07/29/16 15:58: Glucometer 295H 07/29/16 20:26: Glucometer 341H 07/30/16 04:50: Glucometer 139H 07/30/16 11:02: Glucometer 200H 07/30/16 16:03: Glucometer 340H 07/30/16 20:01: Glucometer 222H 07/31/16 04:44: Glucometer 94 07/31/16 11:07: Glucometer 239H Assessment/Plan Assessment Comminuted left intertrochanteric fracture s/p repair OSH ortho S/P trach for pneumonia and ards-now capped S/P espohageal rupture and repair OSH-with hx of esophageal varices NPO status on tube feeds-MBS to be done with ST-done HX of substance abuse and etoh use DM meds adjusted with better control Plan Continue PT/OT/ST F/U with Lucy and check CXR-done Trial of capping [id number] RT F/U Appreciate Dr Thorpe notes and orders Camera Engineer has made recs re tube feeds Discussed with RN last week Appreciate Dr Hidalgo notes and orders Trend Accuchecks and adjust meds as needed Appreciate MBS report and recs Monitor for any regurg with bolus tube feeds F/U with SW re what discharge options possible Next Team Conference tomorrow 08/01/16 Encouraged Patient to accept NH Placement at least on a temporary basis RAHEEM SHAW MD Jul 31, 2016 13:35
--- NOTE | 2016-07-31 13:36 | Speech Therapy Daily Note ---
Speech Daily Progress Note Subjective The patient was laying in bed, sleeping upon entrance. The patient required moderate clinician verbal prompting for appropriate alertness level, as well as , adequate participation throughout the session. Objective - Dysphagia Exercises: The patient demonstrated fair to good accuracy with dysphagia exercises following direct modeling from the clinician. The patient continued to require moderate encouragement for continued participation. The patient completed ten repetitions of each exercise. The patient's tracheostomy remained capped throughout the session. Assessment Assessment Current Status: Fair Progress Treatment Plan Continue Plan of Care Communication Comprehension: 5 Expression: 5 Social Cognition Social Interaction: 4 Problem Solvin Memory: 4 Speech Short Term Goals Short Term Goals Short Term Goals 1. The patient will tolerate trials of the least restrictive diet without signs/ symptoms of aspiration or laryngeal penetration. 2. The patient will participate in a video swallow to definitely rule out aspiration. 3. The patient will demonstrate swallowing strategies, independently. 4. The patient will demonstrate base of tongue, pharyngeal, and laryngeal elevation exercises with 80% accuracy and mild clinician cueing. 5. The patient will demonstrate resonant voice techniques to aid in vocalizations with 80% accuracy and moderate clinician verbal cueing and direct modeling. Time Frame-STG: Two Weeks Speech Paint Spray Tender Goals Senior Care Goals 1. The patient will tolerate the least restrictive diet without signs/symptoms of aspiration or laryngeal penetration. 2. The patient will demonstrate reduced laryngeal tension for increase use of audible voice. Time Frame: Eight Weeks Comprehension: 6 Expression: 6 Social Interaction: 6 Problem Solvin Memory: 6 Speech-Plan Treatment Plan Speech Therapy Treatment Plan: Continue Plan of Care Continue skilled dysphagia therapy. Treatment Duration: Sep 07, 2016 # of days/week Four to five Visits Per Week: Four to Five Minutes/Day (M-F): 30 Rehab Potential: Fair Safety Risks/Education Teaching Recipient: Patient Teaching Methods: Demonstration, Handout, Discussion Response to Teaching: Return Demonstration, Reinforcement Needed Education Topics Provided: Dysphagia Exercises Time Speech Therapy Time In: 09:00 Speech Therapy Time Out: 09:30 Total Billed Time: 30 Billed Treatment Time David ALEJANDRA FLAKITOAUNG ST Jul 31, 2016 13:36
--- NOTE | 2016-07-31 14:28 | Occupational Ther Daily Note ---
OT Current Status-Daily Note Subjective Pt seen in room, asleep in recliner, agreeable to OT. Pt stated that she is going home today and is just waiting for her ride. Appearance Alert, cooperative but anxious to finish therapy Mental Status/Objective Functional [place] Measure 0=Not Assessed/NA 4=Minimal Assistance 1=Total Assistance 5=Supervision or Setup 2=Maximal Assistance 6=Modified [place] 3=Moderate Assistance 7=Complete [place] ADL-Treatment Functional [place] Measure 0=Not Assessed/NA 4=Minimal Assistance 1=Total Assistance 5=Supervision or Setup 2=Maximal Assistance 6=Modified [place] 3=Moderate Assistance 7=Complete IndependenceIRFPAI Quality Coding Scale 6 Independent with activity with or without an assistive device 5 Patient requires set up or clean up by helper. Patient completes activity by themselves 4 Supervision or touching assist (CGA). [place] provide cues , steadying assist 3 The helper provides less than half the effort to complete the activity 2 The helper provides more than half the effort to complete the activity 1 Dependent. The helper does all the effort to complete an activity 7 Patient refused to complete or attempt activity 9 The patient did not perform the activity before the current illness or injury 88 Not attempted due to Medical conditions or safety concerns Other Treatment Pt did 10 reps x 2 sets bilat UE ex with red theraband (upgraded to moderate resistance). Pt was able to recall 50% of exercises for second set, in preparation for using as home exercise program. pt also recalled several exercises with red theraputty to use for strengthening hands. Pt educ two intrinsic exercises to work on small muscles in hands. All exercises to help with transfers and ADLs. pt left up in recliner, all needs met. Education OT Patient Education: Exercise program, Home exercise program Teaching Recipient: Patient Teaching Methods: Demonstration, Discussion Response to Teaching: Return Demonstration, Reinforcement Needed OT Short Term Goals Short Term Goals Time Frame: Jul 20, 2016 Lower Body Dressing(FIM): 5 Transfers (B,C,W/C) (FIM): 4 Toilet/Commode Transfer(FIM): 4 Additional Short Term Goals: 2-Verbalize Understanding, 3-ImproveStrength/Tavares 1=Demonstrate adherence to instructed precautions during ADL tasks. 2=Patient will verbalize/demonstrate understanding of assistive devices/ modifications for ADL. 3=Patient will improve strength/tolerance for activity to enable patient to perform ADL's. OT Nursing Home Goals High School Band Teacher Goals Time Frame: Aug 09, 2016 Eating (FIM): 5 Eating (QC): 5 Oral Hygiene (QC): 6 Grooming(FIM): 6 Bathing(FIM): 5 Shower/Bathe Self (QC): 5 Upper Body Dressing(FIM): 6 Upper Body Dressing (QC): 6 Lower Body Dressing(FIM): 6 Lower Body Dressing (QC): 6 On/Off Footwear (QC): 6 Toileting(FIM): 6 Toileting Hygiene (QC): 6 Toilet/Commode Transfer(FIM): 6 Toilet/Commode Transfer (QC): 6 Shower Transfer(FIM): 6 Comprehension(FIM): 6 Expression (FIM): 6 Social Interaction(FIM): 6 Problem Solving(FIM): 6 Memory(FIM): 6 Improve bilat UE strength to 5/5 to help with transfers and ADLs Additional Goals: 2-Verbalize Understanding, 3-ImproveStrength/Tavares 1=Demonstrate adherence to instructed precautions during ADL tasks. 2=Patient will verbalize/demonstrate understanding of assistive devices/ modifications for ADL. 3=Patient will improve strength/tolerance for activity to enable patient to perform ADL's. OT Education/Plan Problem List/Assessment Pt would benefit from skilled OT to increase her independence in basic self care to allow her to return to son's home and decrease caregiver bruden Discharge Recommendations Plan/Recommendations: Continue POC Treatment Plan/Plan of Care Patient would benefit from OT for education, treatment and training to promote independence in ADL's, mobility, safety and/or upper extremity function for ADL' s. Plan of Care: ADL Retraining, Caregiver Training, Functional Mobility, Group Exercise/Act as Ind (education, exercise, activity tolerance, functional activities, safety), UE Funct Exercise/Act, UE Neuromus Re-Ed/Coord Treatment Duration: Aug 09, 2016 Visits Per Week: 10-11 Minutes/Day (M-F): 75-90 Minutes/Day (Sat/Marcano): PRN Agreement: Yes Rehab Potential: Fair Time/GCodes Start Time: 13:30 Stop Time: 14:00 Total Time Billed (hr/min): 30 Billed Treatment Time visit, 30 minutes exercise WARD PARISI OT Jul 31, 2016 14:28
--- NOTE | 2016-07-31 16:15 | Physical Therapy Daily Note ---
PT Daily Note-Current Subjective Patient in bed pre tx, agrees reluctantly to physical therapy. States her pain at 5/10. Appearance Patient in bed post tx, has nurse call, phone, tray, all needs met. Mental Status Patient Orientation: Person, Place, Situation Attachments: PEG Tube Transfers Functional [place] Measure 0=Not Assessed/NA 4=Minimal Assistance 1=Total Assistance 5=Supervision or Setup 2=Maximal Assistance 6=Modified [place] 3=Moderate Assistance 7=Complete IndependenceIRFPAI Quality Coding Scale 6 Independent with activity with or without an assistive device 5 Patient requires set up or clean up by helper. Patient completes activity by themselves 4 Supervision or touching assist (CGA). [place] provide cues , steadying assist 3 The helper provides less than half the effort to complete the activity 2 The helper provides more than half the effort to complete the activity 1 Dependent. The helper does all the effort to complete an activity 7 Patient refused to complete or attempt activity 9 The patient did not perform the activity before the current illness or injury 88 Not attempted due to Medical conditions or safety concerns Transfers (B, C, W/C) (FIM): 5 Sit to/from Stand: 5 much steadier with transfers, stronger Gait Training Gait (FIM): 4 Distance: 200', 150' Gait Level of Assist: 4 (CGA) Gait Persons Needed: 1 Gait Assistive Device: FWW steadier ambulation, better balance and endurance Exercises Seated Therapy Exercises: Ankle pumps, Hip flexion, Hip abd/add Seated Reps: 20 LAQ alternating for 5 min Treatments bed mobility and transfers, ambulation, functional strengthening, patient also needed assist changing her brief before tx Assessment Current Status: Fair Progress better balance and endurance PT Short Term Goals Short Term Goals Time Frame: Jul 26, 2016 Transfers (B,C,W/C) (FIM): 4 Gait (FIM): 4 Distance (FIM): 3=150 ft Gait Assistive Device: FWW Wheelchair Distance: 80' Stairs (FIM): 2 # of Steps: 4 Stairs Level of Assist: 4 PT Edge Stainer Goals Retirement Goals PT Retirement Goals Time Frame: Aug 09, 2016 Transfers (B,C,W/C) (FIM): 6 Sit to Lying (QC): 6 (met) Lying-Sitting on Side/Bed(QC): 6 (met) Sit to Stand (QC): 6 Rollin (met) Roll Left to Right (QC): 6 (met) Chair/Zpu-by-Wtrue Xfer(QC): 6 Car Transfer (QC): 5 Does the Patient Walk: Yes Gait (FIM): 6 Gait distance (FIM): 3=150 ft Walk 10 feet (QC): 6 Walk 10ft-Uneven Surface(QC): 6 Walk 50ft with 2 Turns (QC): 6 Walk 150 ft (QC): 6 Gait Level of Assist: 6 Gait Assistive Device: FWW Stairs (FIM): 5 # of Steps: 8 1 Step (curb) (QC): 5 4 Steps (QC): 5 12 Steps (QC): 88 Stairs Level Of Assist: 5 Picking up an Object (QC): 5 PT Plan Problem List Problem List: Activity Tolerance, Functional Strength, Safety, Balance, Gait, Transfer, Bed Mobility, ROM Treatment/Plan Treatment Plan: Continue Plan of Care Treatment Plan: Bed Mobility, Education, Functional Activity Tavares, Functional Strength, Group Therapy (socialization, education), Gait, Safety, Therapeutic Exercise, Transfers Treatment Duration: Aug 09, 2016 Visits Per Week: 10-15 Minutes/Day (M-F): 60-90 Minutes/Day (Sat/Marcano): prn Safety Risks/Education Patient Education: Gait Training, Transfer Techniques, Safety Issues Teaching Recipient: Patient Teaching Methods: Demonstration, Discussion Response to Teaching: Reinforcement Needed Time/GCodes Time In: 1545 Time Out: 1615 Total Billed Treatment Time: 30 Total Billed Treatment 1 visit GT 20 min EX 10 min JOSEE SPARKS PT Jul 31, 2016 16:15
[2016-07-31 18:20] VITALS: BP 114/74
[2016-07-31] MEDS: LORazepam 0.5 MG (ATIVAN) TABLET PEG PRN (21:14)
[2016-08-01 05:26] VITALS: BP 113/73
[2016-08-01] MEDS: inSUlin (REGULAR) HUMAN 1 UNIT/0.01 ML (CHARGE PER UNIT) SC SCH ×4 (06:00→21:10)
[2016-08-01] MEDS: RT-ALBUTEROL/IPRATROPIUM 3 ML (DUONEB) VIAL INH SCH ×4 (08:12→18:40)
--- NOTE | 2016-08-01 08:30 | Progress Note (SOAP) ---
Subjective Subjective/Events-last exam patient more alert today.. Patient not willing to go to prison in [place]. Patient voices no complaints Objective Exam Vital Signs Date Time Temp Pulse Resp B/P Pulse Ox O2 Delivery O2 Flow Rate FiO2 08/01/16 05:26 97.8 85 18 113/73 97 Trach Collar 6.00 07/31/16 20:13 97 6.00 28 07/31/16 20:10 Trach Collar 6.00 07/31/16 18:20 96.5 77 16 114/74 93 07/31/16 15:23 99 07/31/16 09:00 Trach Collar I & O 08/01/16 07:00 Intake Total 2450 ml Balance 2450 ml Capillary Refill : General Appearance: No Apparent Distress WD/WN HEENT: Normal ENT Inspection Neck: Other (trach) Respiratory: No Accessory Muscle Use No Respiratory Distress Cardiovascular: Regular Rate, Rhythm No Murmur Results Lab Laboratory Tests 07/31/16 11:07: Glucometer 239H 07/31/16 16:22: Glucometer 256H 07/31/16 21:09: Glucometer 201H 08/01/16 06:14: Glucometer 119H Assessment/Plan Assessment/Plan Assess & Plan/Chief Complaint hip fracture. Perforated esophageal ulcer . Hypertension diabetes. Previous suicide attempts. Depression. . 07/16/16. Hip fracture. Perforated esophageal ulcer. Hypertension. Diabetes. Previous suicide attempts. Depression. . 07/17/16. Hip fracture. Hypertension. Diabetes. Depression Hypertension. Diabetes.. Patient doing okay today. . 07/18/16. Hip fracture hypertension. Diabetes. Patient improving. . 07/19/16 hip fracture. Diabetes. Patient feel she is improving. Patient getting around with a walker. Sugars still elevated. More levimir. . 07/20/16. Sugars better. patient failed modified barium swallow study. Has disorder esophageal mobility. Hip fracture. Perforated esophageal ulcer. Hypertension.. . 07/23/16. Hip fracture. Perforated esophageal ulcer. Hypertension. Diabetes. Doing better. Previous suicide attempts.. . 07/24/16. Hip fracture area Perforated esophageal ulcer. Hypertension. Patient voices no complaints. . 07/25/16. Patient has no complaints. Patient tolerated this morning 07/26/16. Hip fracture. Perforated esophageal ulcer. Hypertension. Diabetes.. Patient lethargic.. . 12/09/16. Hip fracture. Perforated esophageal ulcer. Hypertension. Diabetes doing good. Patient had trach exchange today. . 13/12/16. Hip fracture. Perforated esophageal ulcer. Hypertension. Diabetes. Patient resting comfortably. Patient has no complaints today. . 07/31/16. Hip fracture. Perforated esophageal ulcer. Hypertension. Diabetes. Patient sleeping. To decrease the pain pills.. . area Hip fracture. Perforated esophageal ulcer. Hypertension. Diabetes. Patient at this moment doesn't want to go to an [facility] Diagnosis/Problems: Clinical Quality Measures DVT/VTE Risk/Contraindication: Risk Factor Score Per Nursin RFS Level Per Nursing on Admit: 3=High RANDI RIBEIRO DO Aug 01, 2016 08:30
[2016-08-01] MEDS: ASPIRIN E.C. 81 MG (ECOTRIN) TAB PO SCH (09:13)
[2016-08-01] MEDS: NYSTATIN ORAL SUSP 5 ML UDC PO SCH ×4 (09:13→21:09)
[2016-08-01] MEDS: HYDROcodone/APAP 7.5 MG/325 MG (LORTAB, LORCET PLUS) TABLET PO PRN ×3 (09:14→21:09)
[2016-08-01] MEDS: LORazepam 0.5 MG (ATIVAN) TABLET PEG PRN ×3 (09:14→21:09)
[2016-08-01] MEDS: ENOXAPARIN 40 MG/0.4 ML (LOVENOX) SYR SC SCH (09:14)
[2016-08-01] MEDS: CARVEDILOL 12.5 MG (COREG) TABLET PO SCH ×2 (09:14→21:09)
[2016-08-01] MEDS: inSUlin DETERMIR 1 UNIT/0.01 ML (LEVEMIR) CHARGE PER UNIT SQ SCH ×2 (09:14→21:10)
--- NOTE | 2016-08-01 09:25 | Speech Therapy Daily Note ---
Speech Daily Progress Note Subjective The patient was sitting upright in recliner upon entrance. The patient agreed to participate in dysphagia therapy on this date. Objective - Prior to the onset of dysphagia exercises, the patient requested to be suctioned by clinician. The clinician suctioned the patient's tracheostomy site , as well as, cleaned the patient's tracheostomy. The patient reported increased comfort following care. - Dysphagia Exercises: The patient demonstrated fair to good accuracy with dysphagia exercises following direct modeling from the clinician. The patient continued to require moderate encouragement for continued participation and continued to defer Passy Mykel Speaking Valve trials. The patient completed ten repetitions of each exercise. Assessment Assessment Current Status: Fair Progress Treatment Plan Continue Plan of Care Communication Comprehension: 5 Expression: 5 Social Cognition Social Interaction: 4 Problem Solvin Memory: 4 Speech Short Term Goals Short Term Goals Short Term Goals 1. The patient will tolerate trials of the least restrictive diet without signs/ symptoms of aspiration or laryngeal penetration. PROGRESSING 2. The patient will participate in a video swallow to definitely rule out aspiration. MET 3. The patient will demonstrate swallowing strategies, independently. PROGRESSING 4. The patient will demonstrate base of tongue, pharyngeal, and laryngeal elevation exercises with 80% accuracy and mild clinician cueing. PROGRESSING 5. The patient will demonstrate resonant voice techniques to aid in vocalizations with 80% accuracy and moderate clinician verbal cueing and direct modeling. NOT MET Time Frame-STG: Two Weeks Speech Fdc Goals Garment Supervisor Goals 1. The patient will tolerate the least restrictive diet without signs/symptoms of aspiration or laryngeal penetration. 2. The patient will demonstrate reduced laryngeal tension for increase use of audible voice. Time Frame: Eight Weeks Comprehension: 6 Expression: 6 Social Interaction: 6 Problem Solvin Memory: 6 Speech-Plan Treatment Plan Speech Therapy Treatment Plan: Continue Plan of Care Continue skilled dysphagia therapy to strengthen laryngeal, base of tongue, and pharyngeal musculature. Treatment Duration: Sep 07, 2016 # of days/week Four to Five Visits Per Week: Four to Five Minutes/Day (M-F): 30 Rehab Potential: Fair Safety Risks/Education Teaching Recipient: Patient Teaching Methods: Demonstration, Handout, Discussion Response to Teaching: Return Demonstration, Reinforcement Needed Education Topics Provided: Dysphagia Exercises Time Speech Therapy Time In: 08:30 Speech Therapy Time Out: 09:00 Total Billed Time: 30 Billed Treatment Time DavidALEJANDRA ELIZABETH Aug 01, 2016 09:25
--- NOTE | 2016-08-01 10:23 | Physical Therapy Daily Note ---
PT Daily Note-Current Subjective Agreeable to PT. However multiple times throughout course of therapy, requests to stop therapy so she can go to her room and rest. Pain Numeric Pain Scale: 6 Location: Left Location Body Site: Hip Pain Description: Stabbing Comment: increases with activity; has taken pain meds Mental Status Patient Orientation: Person, Place, Time, Situation Transfers Functional [place] Measure 0=Not Assessed/NA 4=Minimal Assistance 1=Total Assistance 5=Supervision or Setup 2=Maximal Assistance 6=Modified [place] 3=Moderate Assistance 7=Complete IndependenceIRFPAI Quality Coding Scale 6 Independent with activity with or without an assistive device 5 Patient requires set up or clean up by helper. Patient completes activity by themselves 4 Supervision or touching assist (CGA). [place] provide cues , steadying assist 3 The helper provides less than half the effort to complete the activity 2 The helper provides more than half the effort to complete the activity 1 Dependent. The helper does all the effort to complete an activity 7 Patient refused to complete or attempt activity 9 The patient did not perform the activity before the current illness or injury 88 Not attempted due to Medical conditions or safety concerns Transfers (B, C, W/C) (FIM): 5 (SBA with standing activities for safety.) Rollin Roll Left to Right (QC): 6 Supine to/from Sit: 6 Sit to/from Stand: 5 Sit to Lying (QC): 6 Sit to Stand (QC): 5 Chair/Qpf-ws-Ojrbh Xfer(QC): 5 Pt is indep from the supine or seated level but once she is transferring to stand recommend SBA for safety reasons. Gait Training Does the Patient Walk?: Yes Gait (FIM): 5 Distance (FIM): 3=150 ft Distance: 150 ft x 4 Walk 10 feet (QC): 5 Walk 50 ft with 2 Turns(QC): 5 Walk 150 ft (QC): 5 Walking 10ft/uneven surface-QC: 4 Gait Level of Assist: 5 Gait Assistive Device: FWW Pt remains at a SBA level for safety reasons and risk for falls. Stair Training Pt declined performing stairs this date. Exercises Supine Ex: Bridging, Ankle pumps, Quad Set, Glut sets, Heel Slides, Short Arc Quads, Straight leg raise, Hip abd/add Supine Reps: 15 (To increase LE strength for improved safety with gait and transfers. ) Standing: Hip Abduction, Hamstring curls, Heel/toe raises, Marching, Mini squats Standing Reps: 15 (to facilitate LE strength for functional gait and transfers without assist or supervision) Assessment Current Status: Fair Progress Pt progressing with skilled intervention but recommend supervision due to LE weakness and risk of falls. Pt does need increased encouragement to participate but does so. Pt's bed mobility is mod indep to indep. She is increasing her functional gait distance as well. PT Short Term Goals Short Term Goals Time Frame: Jul 26, 2016 Transfers (B,C,W/C) (FIM): 4 (met 08/01/16) Gait (FIM): 4 (met 08/01/16) Distance (FIM): 3=150 ft Gait Assistive Device: FWW Wheelchair Distance: 80' Stairs (FIM): 2 # of Steps: 4 Stairs Level of Assist: 4 PT 3D Animator Goals 3D Animator Goals PT [facility] Goals Time Frame: Aug 09, 2016 Transfers (B,C,W/C) (FIM): 6 Sit to Lying (QC): 6 (met) Lying-Sitting on Side/Bed(QC): 6 (met) Sit to Stand (QC): 6 Rollin (met) Roll Left to Right (QC): 6 (met) Chair/Mmb-po-Jnsyr Xfer(QC): 6 Car Transfer (QC): 5 Does the Patient Walk: Yes Gait (FIM): 6 Gait distance (FIM): 3=150 ft Walk 10 feet (QC): 6 Walk 10ft-Uneven Surface(QC): 6 Walk 50ft with 2 Turns (QC): 6 Walk 150 ft (QC): 6 Gait Level of Assist: 6 Gait Assistive Device: FWW Stairs (FIM): 5 # of Steps: 8 1 Step (curb) (QC): 5 4 Steps (QC): 5 12 Steps (QC): 88 Stairs Level Of Assist: 5 Picking up an Object (QC): 5 PT Plan Problem List Problem List: Activity Tolerance, Functional Strength Treatment/Plan Treatment Plan: Continue Plan of Care Treatment Plan: Bed Mobility, Education, Functional Activity Tavares, Functional Strength, Group Therapy (socialization, education), Gait, Safety, Therapeutic Exercise, Transfers Treatment Duration: Aug 09, 2016 Visits Per Week: 10-15 Minutes/Day (M-F): 60-90 Minutes/Day (Sat/Marcano): prn Safety Risks/Education Patient Education: Transfer Techniques, Safety Issues Teaching Recipient: Patient Teaching Methods: Discussion Response to Teaching: Reinforcement Needed Time/GCodes Time In: 925 Time Out: 1015 Total Billed Treatment Time: 50 Total Billed Treatment visit EX 30 GT 20 DALIA PÉREZ PT Aug 01, 2016 10:23
--- NOTE | 2016-08-01 11:01 | PM & R (SOAP) Progress Note ---
Subjective Subjective/Events-last exam Patient was seen in her room this AM Discussed case with DR Winters Pain meds cut back to decrease somnolence May be partially due to depression, Objective Exam Last Set of Vital Signs Vital Signs Date Time Temp Pulse Resp B/P Pulse Ox O2 Delivery O2 Flow Rate FiO2 08/01/16 09:00 Trach Collar 6.00 08/01/16 08:12 96 28 08/01/16 05:26 97.8 85 18 113/73 Capillary Refill : I&O Intake and Output 08/01/16 00:00 Intake Total 2500 ml Balance 2500 ml Intake Oral 0 ml Tube Feeding 1200 ml Other 1300 ml # Voids 8 # Urine Diapers 2 General: Alert, Oriented X3, Cooperative, No Acute Distress HEENT: Atraumatic, PERRLA, EOMI, Mucous Memb Moist/Gananda Neck: Other (trach) Lungs: Clear to Auscultation Heart: Regular Rate Abdomen: Normal Bowel Sounds, Soft, No Tenderness, Other (Peg tube in place) Extremities: Other (trace edema) Neuro: Other (Weakness both lower legs left >rt) Results Lab Laboratory Tests 07/29/16 11:09: Glucometer 193H 07/29/16 15:58: Glucometer 295H 07/29/16 20:26: Glucometer 341H 07/30/16 04:50: Glucometer 139H 07/30/16 11:02: Glucometer 200H 07/30/16 16:03: Glucometer 340H 07/30/16 20:01: Glucometer 222H 07/31/16 04:44: Glucometer 94 07/31/16 11:07: Glucometer 239H 07/31/16 16:22: Glucometer 256H 07/31/16 21:09: Glucometer 201H 08/01/16 06:14: Glucometer 119H Assessment/Plan Assessment Comminuted left intertrochanteric fracture s/p repair OSH ortho S/P trach for pneumonia and ards-now capped S/P espohageal rupture and repair OSH-with hx of esophageal varices NPO status on tube feeds-MBS to be done with ST-done HX of substance abuse and etoh use DM meds adjusted with better control Plan Continue PT/OT/ST F/U with Lucy and check CXR-done Trial of capping [id number] RT F/U Appreciate Dr Thorpe notes and orders Metrology Engineer has made recs re tube feeds Discussed with RN last week Appreciate Dr Hidalgo notes and orders Trend Accuchecks and adjust meds as needed Appreciate MBS report and recs Monitor for any regurg with bolus tube feeds F/U with SW re what discharge options possible Next Team Conference later today 08/01/16-See report for full functional update and POC and ELOS Encouraged Patient to accept NH Placement at least on a temporary basis Adjust Pain meds -Antidepressant begun [place] [facility] consult rerquested RAHEEM SHAW MD Aug 01, 2016 11:01
--- NOTE | 2016-08-01 11:17 | Occupational Ther Daily Note ---
OT Current Status-Daily Note Subjective Pt alert, sitting with feet elevated in recliner. Pt had just finished up with PT, c/o pain in L LE and wanted to complete activities in chair. Mental Status/Objective Patient Orientation: Person, Place, Time, Situation Functional [place] Measure 0=Not Assessed/NA 4=Minimal Assistance 1=Total Assistance 5=Supervision or Setup 2=Maximal Assistance 6=Modified [place] 3=Moderate Assistance 7=Complete [place] ADL-Treatment Pt ambulated with SBA using FWW to bathroom, transferred to toilet with SBA using BSC. Pt completed toileting by self. Pt ambulated to sink with FWW and completed grooming. Then ambulated back to chair with SBA using FWW. Functional [place] Measure 0=Not Assessed/NA 4=Minimal Assistance 1=Total Assistance 5=Supervision or Setup 2=Maximal Assistance 6=Modified [place] 3=Moderate Assistance 7=Complete IndependenceIRFPAI Quality Coding Scale 6 Independent with activity with or without an assistive device 5 Patient requires set up or clean up by helper. Patient completes activity by themselves 4 Supervision or touching assist (CGA). [place] provide cues , steadying assist 3 The helper provides less than half the effort to complete the activity 2 The helper provides more than half the effort to complete the activity 1 Dependent. The helper does all the effort to complete an activity 7 Patient refused to complete or attempt activity 9 The patient did not perform the activity before the current illness or injury 88 Not attempted due to Medical conditions or safety concerns Grooming (FIM): 5 Toileting (FIM): 5 Transfers (B, C, W/C) (FIM): 5 Toilet/Commode Transfer (FIM): 5 Other Treatment Pt then completed UE tasks that promoted strength, activity tolerance and fine motor skills for daily functional tasks. Pt tolerated tasks well and did not required breaks. After therapy, pt sitting in w/c with feet elevated. Call light/phone in reach, all needs met in room. OT Short Term Goals Short Term Goals Time Frame: Jul 20, 2016 Lower Body Dressing(FIM): 5 Transfers (B,C,W/C) (FIM): 4 (met 08/01/16) Toilet/Commode Transfer(FIM): 4 Additional Short Term Goals: 2-Verbalize Understanding, 3-ImproveStrength/Tavares 1=Demonstrate adherence to instructed precautions during ADL tasks. 2=Patient will verbalize/demonstrate understanding of assistive devices/ modifications for ADL. 3=Patient will improve strength/tolerance for activity to enable patient to perform ADL's. OT Senior Web Applications Developer Goals [facility] Goals Time Frame: Aug 09, 2016 Eating (FIM): 5 Eating (QC): 5 Oral Hygiene (QC): 6 Grooming(FIM): 6 Bathing(FIM): 5 Shower/Bathe Self (QC): 5 Upper Body Dressing(FIM): 6 Upper Body Dressing (QC): 6 Lower Body Dressing(FIM): 6 Lower Body Dressing (QC): 6 On/Off Footwear (QC): 6 Toileting(FIM): 6 Toileting Hygiene (QC): 6 Toilet/Commode Transfer(FIM): 6 Toilet/Commode Transfer (QC): 6 Shower Transfer(FIM): 6 Comprehension(FIM): 6 Expression (FIM): 6 Social Interaction(FIM): 6 Problem Solving(FIM): 6 Memory(FIM): 6 Improve bilat UE strength to 5/5 to help with transfers and ADLs Additional Goals: 2-Verbalize Understanding, 3-ImproveStrength/Tavares 1=Demonstrate adherence to instructed precautions during ADL tasks. 2=Patient will verbalize/demonstrate understanding of assistive devices/ modifications for ADL. 3=Patient will improve strength/tolerance for activity to enable patient to perform ADL's. OT Education/Plan Problem List/Assessment Pt would benefit from skilled OT to increase her independence in basic self care to allow her to return to son's home and decrease caregiver bruden Discharge Recommendations Plan/Recommendations: Continue POC Treatment Plan/Plan of Care Patient would benefit from OT for education, treatment and training to promote independence in ADL's, mobility, safety and/or upper extremity function for ADL' s. Plan of Care: ADL Retraining, Caregiver Training, Functional Mobility, Group Exercise/Act as Ind (education, exercise, activity tolerance, functional activities, safety), UE Funct Exercise/Act, UE Neuromus Re-Ed/Coord Treatment Duration: Aug 09, 2016 Visits Per Week: 10-11 Minutes/Day (M-F): 75-90 Minutes/Day (Sat/Marcano): PRN Agreement: Yes Rehab Potential: Fair Time/GCodes Start Time: 10:15 Stop Time: 11:00 Total Time Billed (hr/min): 45 Billed Treatment Time 1 visit-FA 3 (45 min) DALIA ENGLE Aug 01, 2016 11:17
--- NOTE | 2016-08-01 15:03 | Therapy Group Daily Note ---
Therapy Daily Group Note Patient Education Topic Home Safety Exercises LE Seated Exercise, UE Exercise Other/Notes Pt ambulated to group therapy with CGA using FWW. OT/PT group consisted of introductions (name, first car and what happened to it), socialization, ARU description, UE/LE seated exercises, problem solving and critical thinking activity and alert systems that can be used for safety in the home. Pt actively participated in group. Pt contributed to discussions with other patients. Pt was able to gather information and make an informed answer to questions. Pt completed UE/LE exercises well and followed instructions. After therapy, pt sat in recliner with feet elevated and pillow under legs. Call light /phone in reach. All needs met in room. Start Time: 13:00 Stop Time: 14:15 Total Billed Treatment Time: 75 Total Billed Treatment 1-GRP DALIA ENGLE Aug 01, 2016 15:03
[2016-08-01 18:00] VITALS: BP 149/91
[2016-08-01] MEDS ORDERED: MILK OF MAGNESIA 400 MG/5 ML 30 ML UDC PO PRN (20:00)
[2016-08-01] MEDS ORDERED: BISACODYL 10 MG SUPP (DULCOLAX) PR PRN (20:00)
[2016-08-01] MEDS: SENNA W/DOCUSATE (SENOKOT S) TABLET PO SCH (21:09)
[2016-08-02 05:00] VITALS: BP 129/78
[2016-08-02] MEDS: RT-ALBUTEROL/IPRATROPIUM 3 ML (DUONEB) VIAL INH SCH ×4 (06:30→19:13)
[2016-08-02] MEDS: inSUlin (REGULAR) HUMAN 1 UNIT/0.01 ML (CHARGE PER UNIT) SC SCH ×4 (07:18→21:19)
--- NOTE | 2016-08-02 08:37 | Progress Note (SOAP) ---
Subjective Subjective/Events-last exam patient resting comfortably. Patient has no complaints. Patient has trach and PEG tube. Objective Exam Vital Signs Date Time Temp Pulse Resp B/P Pulse Ox O2 Delivery O2 Flow Rate FiO2 08/02/16 06:30 90 08/02/16 05:00 99.9 94 20 129/78 92 Room Air 08/01/16 20:40 Trach Collar 6.00 08/01/16 18:41 93 08/01/16 18:00 98.9 98 20 149/91 97 Room Air 08/01/16 15:25 93 08/01/16 11:23 98 08/01/16 09:00 Trach Collar 6.00 I & O 08/02/16 07:00 Intake Total 2050 ml Balance 2050 ml Capillary Refill : General Appearance: No Apparent Distress WD/WN HEENT: Normal ENT Inspection Neck: Full Range of Motion Respiratory: Chest Non Tender No Accessory Muscle Use No Respiratory Distress Cardiovascular: Regular Rate, Rhythm No Murmur Results Lab Laboratory Tests 08/01/16 11:07: Glucometer 269H 08/01/16 16:04: Glucometer 325H 08/01/16 20:52: Glucometer 220H 08/02/16 05:11: Glucometer 232H Assessment/Plan Assessment/Plan Assess & Plan/Chief Complaint hip fracture. Perforated esophageal ulcer . Hypertension diabetes. Previous suicide attempts. Depression. . 07/16/16. Hip fracture. Perforated esophageal ulcer. Hypertension. Diabetes. Previous suicide attempts. Depression. . 07/17/16. Hip fracture. Hypertension. Diabetes. Depression Hypertension. Diabetes.. Patient doing okay today. . 07/18/16. Hip fracture hypertension. Diabetes. Patient improving. . 07/19/16 hip fracture. Diabetes. Patient feel she is improving. Patient getting around with a walker. Sugars still elevated. More levimir. . 07/20/16. Sugars better. patient failed modified barium swallow study. Has disorder esophageal mobility. Hip fracture. Perforated esophageal ulcer. Hypertension.. . 07/23/16. Hip fracture. Perforated esophageal ulcer. Hypertension. Diabetes. Doing better. Previous suicide attempts.. . 07/24/16. Hip fracture area Perforated esophageal ulcer. Hypertension. Patient voices no complaints. . 07/25/16. Patient has no complaints. Patient tolerated this morning 07/26/16. Hip fracture. Perforated esophageal ulcer. Hypertension. Diabetes.. Patient lethargic.. . 12/09/16. Hip fracture. Perforated esophageal ulcer. Hypertension. Diabetes doing good. Patient had trach exchange today. . 13/12/16. Hip fracture. Perforated esophageal ulcer. Hypertension. Diabetes. Patient resting comfortably. Patient has no complaints today. . 07/31/16. Hip fracture. Perforated esophageal ulcer. Hypertension. Diabetes. Patient sleeping. To decrease the pain pills.. . area Hip fracture. Perforated esophageal ulcer. Hypertension. Diabetes. Patient at this moment doesn't want to go to an [facility]. . 08/02/16. Hip fracture. Perforated esophageal ulcer. Hypertension. Diabetes under control. History of depression Diagnosis/Problems: Clinical Quality Measures DVT/VTE Risk/Contraindication: Risk Factor Score Per Nursin RFS Level Per Nursing on Admit: 3=High RANDI RIBEIRO DO Aug 02, 2016 08:37
[2016-08-02] MEDS: NYSTATIN ORAL SUSP 5 ML UDC PO SCH ×4 (09:20→21:19)
[2016-08-02] MEDS: CARVEDILOL 12.5 MG (COREG) TABLET PO SCH ×2 (09:20→21:05)
[2016-08-02] MEDS: ASPIRIN E.C. 81 MG (ECOTRIN) TAB PO SCH (09:20)
[2016-08-02] MEDS: inSUlin DETERMIR 1 UNIT/0.01 ML (LEVEMIR) CHARGE PER UNIT SQ SCH ×2 (09:20→21:19)
[2016-08-02] MEDS: ENOXAPARIN 40 MG/0.4 ML (LOVENOX) SYR SC SCH (09:21)
[2016-08-02] MEDS: LORazepam 0.5 MG (ATIVAN) TABLET PEG PRN ×2 (09:21→21:05)
[2016-08-02] MEDS: SENNA W/DOCUSATE (SENOKOT S) TABLET PO SCH ×2 (09:21→21:00)
[2016-08-02] MEDS: HYDROcodone/APAP 7.5 MG/325 MG (LORTAB, LORCET PLUS) TABLET PO PRN ×2 (09:22→21:05)
--- NOTE | 2016-08-02 10:03 | Physical Therapy Daily Note ---
PT Daily Note-Current Subjective Throughout treatment pt has multiple requests to use the restroom. Pt reports after sitting on the toilet each time that "it was just air." Pain Numeric Pain Scale: 5-Moderate Pain Location: Left Location Body Site: Hip Pain Description: Ache Comment: paim meds given Mental Status Patient Orientation: Person, Place, Time, Situation Transfers Functional [place] Measure 0=Not Assessed/NA 4=Minimal Assistance 1=Total Assistance 5=Supervision or Setup 2=Maximal Assistance 6=Modified [place] 3=Moderate Assistance 7=Complete IndependenceIRFPAI Quality Coding Scale 6 Independent with activity with or without an assistive device 5 Patient requires set up or clean up by helper. Patient completes activity by themselves 4 Supervision or touching assist (CGA). [place] provide cues , steadying assist 3 The helper provides less than half the effort to complete the activity 2 The helper provides more than half the effort to complete the activity 1 Dependent. The helper does all the effort to complete an activity 7 Patient refused to complete or attempt activity 9 The patient did not perform the activity before the current illness or injury 88 Not attempted due to Medical conditions or safety concerns Transfers (B, C, W/C) (FIM): 5 Roll Left to Right (QC): 6 Supine to/from Sit: 6 Sit to/from Stand: 5 (SBA for safety due to decreased safety awareness) Sit to Lying (QC): 6 Sit to Stand (QC): 5 Chair/[place] Xfer(QC): 5 (SBA for safety) Bed to/from Chair: 5 Car Transfer (QC): 88 Pt able to move about in bed without assist but in standing needs SBA for safety concerns and fall risk Pt performed toilet transfer x 3 with SBA; SBA to pull pants up/down; SBA to stand at the sink to wash hands. Gait Training Does the Patient Walk?: Yes Gait (FIM): 5 Distance (FIM): 3=150 ft Distance: 150 ft x 6 reps Walk 10 feet (QC): 5 (in bathroom and room; SBA for safety) Walk 50 ft with 2 Turns(QC): 5 (in room and valle; sba for safety) Walk 150 ft (QC): 5 (SBA for safety) Walking 10ft/uneven surface-QC: 4 (CGA for safety ) Gait Assistive Device: FWW Pt tends to walk too fast and is not fully aware of obstacles and barriers they may present; decreased safety awareness lends to requiring sBA with gait. Wheelchair Training Does the Pt Use a Wheelchair?: No Stair Training Stair Training: Handrails/: 2 handrails Stairs (FIM): 2 #of Steps: 4 1 Step (curb) (QC): 4 (CGA) 4 Steps (QC): 4 (CGA and skilled cues for sequencing) 12 Steps (QC): 88 (unsafe to attempt; too many steps and strength not appropriate) Stairs: Pattern: Step to Balance Picking up an Object (QC): 4 (close CGA) Exercises Supine Ex: Ankle pumps, Quad Set, Glut sets, Heel Slides, Short Arc Quads, Straight leg raise, Hip abd/add Supine Reps: 15 Seated Therapy Exercises: Ankle pumps, Long arc quads, Hip flexion Seated Reps: 15 Leg exercises perfromed to increase strength for functional transfers and gait safety. Assessment Current Status: Good Progress Pt is making slight functional gains; tends to try to put off therapy with small requests throughout the treatment, but does participate. Pt's ability to handle herself in the restroom improving as well. PT Short Term Goals Short Term Goals Time Frame: Jul 26, 2016 Transfers (B,C,W/C) (FIM): 4 (met 08/01/16) Gait (FIM): 4 (met 08/01/16) Distance (FIM): 3=150 ft Gait Assistive Device: FWW Wheelchair Distance: 80' Stairs (FIM): 2 # of Steps: 4 Stairs Level of Assist: 4 PT [facility]itentiary Goals Driver Operator Goals PT [facility] Goals Time Frame: Aug 09, 2016 Transfers (B,C,W/C) (FIM): 6 Sit to Lying (QC): 6 (met) Lying-Sitting on Side/Bed(QC): 6 (met) Sit to Stand (QC): 6 Rollin Roll Left to Right (QC): 6 (met) Chair/Ywt-gn-Sxfuw Xfer(QC): 6 Car Transfer (QC): 5 Does the Patient Walk: Yes Gait (FIM): 6 Gait distance (FIM): 3=150 ft Walk 10 feet (QC): 6 Walk 10ft-Uneven Surface(QC): 6 Walk 50ft with 2 Turns (QC): 6 Walk 150 ft (QC): 6 Gait Level of Assist: 6 Gait Assistive Device: FWW Stairs (FIM): 5 # of Steps: 8 1 Step (curb) (QC): 5 4 Steps (QC): 5 12 Steps (QC): 88 Stairs Level Of Assist: 5 Picking up an Object (QC): 5 PT Plan Problem List Problem List: Activity Tolerance, Functional Strength, Safety Treatment/Plan Treatment Plan: Continue Plan of Care Treatment Plan: Bed Mobility, Education, Functional Activity Tavares, Functional Strength, Group Therapy (socialization, education), Gait, Safety, Therapeutic Exercise, Transfers Treatment Duration: Aug 09, 2016 Visits Per Week: 10-15 Minutes/Day (M-F): 60-90 Minutes/Day (Sat/Marcano): prn Safety Risks/Education Patient Education: Safety Issues Teaching Recipient: Patient Teaching Methods: Discussion Response to Teaching: Reinforcement Needed Time/GCodes Time In: 915 Time Out: 1000 Total Billed Treatment Time: 45 Total Billed Treatment visit FA 30 EX 15 DALIA PÉREZ PT Aug 02, 2016 10:03
--- NOTE | 2016-08-02 10:41 | Speech Therapy Daily Note ---
Speech Daily Progress Note Subjective The patient was sitting upright in recliner upon entrance. The patient agreed to participate in dysphagia therapy on this date. Objective - Prior to the onset of dysphagia exercises, the patient requested to be suctioned by clinician. The clinician suctioned the patient's tracheostomy site , as well as, cleaned the patient's tracheostomy. The patient reported increased comfort following care. - Dysphagia Exercises: The patient demonstrated fair to good accuracy with dysphagia exercises following direct modeling from the clinician. The patient continued to require moderate encouragement for continued participation and continued to defer Passy Mykel Speaking Valve and capping trials. The patient completed ten repetitions of each exercise. Assessment Assessment Current Status: Fair Progress Treatment Plan Continue Plan of Care Communication Comprehension: 5 Expression: 5 Social Cognition Social Interaction: 4 Problem Solvin Memory: 5 Speech Short Term Goals Short Term Goals Short Term Goals 1. The patient will tolerate trials of the least restrictive diet without signs/ symptoms of aspiration or laryngeal penetration. PROGRESSING 2. The patient will participate in a video swallow to definitely rule out aspiration. MET 3. The patient will demonstrate swallowing strategies, independently. PROGRESSING 4. The patient will demonstrate base of tongue, pharyngeal, and laryngeal elevation exercises with 80% accuracy and mild clinician cueing. PROGRESSING 5. The patient will demonstrate resonant voice techniques to aid in vocalizations with 80% accuracy and moderate clinician verbal cueing and direct modeling. NOT MET Time Frame-STG: Two Weeks Speech Curriculum And Instruction Director Goals Longterm Goals 1. The patient will tolerate the least restrictive diet without signs/symptoms of aspiration or laryngeal penetration. 2. The patient will demonstrate reduced laryngeal tension for increase use of audible voice. Time Frame: Eight Weeks Comprehension: 6 Expression: 6 Social Interaction: 6 Problem Solvin Memory: 6 Speech-Plan Treatment Plan Speech Therapy Treatment Plan: Continue Plan of Care Continue skilled dysphagia therapy to target increased laryngeal, pharyngeal, and base of tongue strength. Treatment Duration: Sep 07, 2016 # of days/week Four to five Visits Per Week: Four to Five Minutes/Day (M-F): 30 Rehab Potential: Fair Safety Risks/Education Teaching Recipient: Patient Teaching Methods: Demonstration, Handout Response to Teaching: Reinforcement Needed Education Topics Provided: Dysphagia Exercises Time Speech Therapy Time In: 08:45 Speech Therapy Time Out: 09:15 Total Billed Time: 30 Billed Treatment Time 1 ALEJANDRA AUNG FRAGA Aug 02, 2016 10:41
--- NOTE | 2016-08-02 12:50 | Occupational Ther Daily Note ---
OT Current Status-Daily Note Subjective Pt alert, sitting in recliner with feet elevated. Pt agreed to therapy. No c/ o pain. Mental Status/Objective Patient Orientation: Person, Place, Time, Situation Functional [place] Measure 0=Not Assessed/NA 4=Minimal Assistance 1=Total Assistance 5=Supervision or Setup 2=Maximal Assistance 6=Modified [place] 3=Moderate Assistance 7=Complete [place] Attachments: PEG Tube ADL-Treatment Functional [place] Measure 0=Not Assessed/NA 4=Minimal Assistance 1=Total Assistance 5=Supervision or Setup 2=Maximal Assistance 6=Modified [place] 3=Moderate Assistance 7=Complete IndependenceIRFPAI Quality Coding Scale 6 Independent with activity with or without an assistive device 5 Patient requires set up or clean up by helper. Patient completes activity by themselves 4 Supervision or touching assist (CGA). [place] provide cues , steadying assist 3 The helper provides less than half the effort to complete the activity 2 The helper provides more than half the effort to complete the activity 1 Dependent. The helper does all the effort to complete an activity 7 Patient refused to complete or attempt activity 9 The patient did not perform the activity before the current illness or injury 88 Not attempted due to Medical conditions or safety concerns Eating (FIM): 1 (peg tube feeding) Eating (QC): 1 (peg tube feeding) Grooming (FIM): 5 (Standing at sink using FWW, pt is able to complete grooming tasks with SBA.) Oral Hygiene (QC): 6 (No teeth, uses oral swab to cleanse mouth.) Toileting Hygiene (QC): 4 (Supervision when standing to manipulate clothing. Able to complete all other toileting by self.) Bathing (FIM): 5 (Using shower bench, hand held shower, grabbars and long handle sponge pt is able to complete bathing with supervision.) Bathing Location: L Arm, R Arm, L Upper Leg, R Upper Leg, L Lower Leg ( including foot), R Lower Leg (including foot), Chest, Abdomen, Buttocks, Perineal Area Shower/Bathe Self (QC): 4 (Using shower bench, hand held shower, grabbars and long handle sponge pt is able to complete bathing with supervision.) Upper Body (FIM): 5 (After set up, pt is able to complete upper body dressing.) Upper Body Dressing (QC): 5 (After set up, pt is able to complete upper body dressing.) Lower Body Dressing (FIM): 5 (After set up, pt is able to complete lower body dressing with supervision to stand and hike pants over hips.) Lower Body Dressing (QC): 4 (After set up, pt is able to complete lower body dressing with supervision to stand and hike pants over hips.) On/Off Footwear (QC): 5 (Able to don/doff footwear after set up.) Toileting (FIM): 5 (Supervision when standing to manipulate clothing. Able to complete all other toileting by self.) Transfers (B, C, W/C) (FIM): 5 (Using FWW, pt is able to complete with SBA.) Toilet/Commode Transfer (FIM): 5 (Using FWW, grabbars and BSC pt is able to complete with SBA.) Toilet Transfer (QC): 4 (Using FWW, grabbars and BSC pt is able to complete with SBA.) Shower Transfer(FIM): 5 (Using FWW, grabbars and shower bench pt is able to complete with SBA.) Other Treatment Pt then completed fine motor coordination tasks, reaching grasping and dynamic sitting for daily functional tasks. Pt was able to complete tasks though did c/ o pain with L LE and requested to stretch it during session. After therapy, pt sitting in recliner with feet up. Call light/phone in reach. All needs met in room. OT Short Term Goals Short Term Goals Time Frame: Jul 20, 2016 Lower Body Dressing(FIM): 5 (met-08/02/16) Transfers (B,C,W/C) (FIM): 4 (met 08/01/16) Toilet/Commode Transfer(FIM): 4 (met-08/02/16) Additional Short Term Goals: 2-Verbalize Understanding, 3-ImproveStrength/Tavares 1=Demonstrate adherence to instructed precautions during ADL tasks. 2=Patient will verbalize/demonstrate understanding of assistive devices/ modifications for ADL. 3=Patient will improve strength/tolerance for activity to enable patient to perform ADL's. OT Informatics Physician Goals Informatics Physician Goals Time Frame: Aug 09, 2016 Eating (FIM): 5 (not met) Eating (QC): 5 (not met) Groomin (not met) Oral Hygiene (QC): 6 (not met) Bathing(FIM): 5 (met-08/02/16) Shower/Bathe Self (QC): 5 (not met) Upper Body Dressing(FIM): 6 (not met) Upper Body Dressing (QC): 6 (not met) Lower Body Dressing(FIM): 6 (not met) Lower Body Dressing (QC): 6 (not met) On/Off Footwear (QC): 6 (not met) Toileting(FIM): 6 (not met) Toileting Hygiene (QC): 6 (not met) Toilet/Commode Transfer(FIM): 6 (not met) Toilet/Commode Transfer (QC): 6 (not met) Shower Transfer(FIM): 6 (not met) Comprehension(FIM): 6 Expression (FIM): 6 Social Interaction(FIM): 6 Problem Solving(FIM): 6 Memory(FIM): 6 Improve bilat UE strength to 5/5 to help with transfers and ADLs Additional Goals: 2-Verbalize Understanding, 3-ImproveStrength/Tavares 1=Demonstrate adherence to instructed precautions during ADL tasks. 2=Patient will verbalize/demonstrate understanding of assistive devices/ modifications for ADL. 3=Patient will improve strength/tolerance for activity to enable patient to perform ADL's. OT Education/Plan Problem List/Assessment Pt would benefit from skilled OT to increase her independence in basic self care to allow her to return to son's home and decrease caregiver bruden Discharge Recommendations Plan/Recommendations: Continue POC Treatment Plan/Plan of Care Patient would benefit from OT for education, treatment and training to promote independence in ADL's, mobility, safety and/or upper extremity function for ADL' s. Plan of Care: ADL Retraining, Caregiver Training, Functional Mobility, Group Exercise/Act as Ind (education, exercise, activity tolerance, functional activities, safety), UE Funct Exercise/Act, UE Neuromus Re-Ed/Coord Treatment Duration: Aug 09, 2016 Visits Per Week: 10-11 Minutes/Day (M-F): 75-90 Minutes/Day (Sat/[place]): PRN Agreement: Yes Rehab Potential: Fair Time/GCodes Start Time: 10:15 Stop Time: 11:45 Total Time Billed (hr/min): 90 Billed Treatment Time 1 visit-ADL 4 (60 min) EX 2 (30 min) DALIA ENGLE Aug 02, 2016 12:50
--- NOTE | 2016-08-02 13:33 | PM & R (SOAP) Progress Note ---
Subjective Subjective/Events-last exam Patient was seen in her room this AM.Patient Modified Independent for transfers Patient tolerating Trach being Capped Pulm following SW working on possible discharge tomorrow Objective Exam Last Set of Vital Signs Vital Signs Date Time Temp Pulse Resp B/P Pulse Ox O2 Delivery O2 Flow Rate FiO2 08/02/16 09:02 Trach Collar 6.00 08/02/16 06:30 90 08/02/16 05:00 99.9 94 20 129/78 08/01/16 08:12 28 Capillary Refill : I&O Intake and Output 08/02/16 00:00 Intake Total 2000 ml Balance 2000 ml Intake Oral 0 ml Tube Feeding 1200 ml Other 800 ml # Voids 12 # Urine Diapers 2 General: Alert, Oriented X3, Cooperative, No Acute Distress HEENT: Atraumatic, PERRLA, EOMI, Mucous Memb Moist/[place]: Other (trach) Lungs: Clear to Auscultation Heart: Regular Rate Abdomen: Normal Bowel Sounds, Soft, No Tenderness, Other (Peg tube in place) Extremities: Other (trace edema) Neuro: Other (Weakness both lower legs left >rt) Results Lab Laboratory Tests 07/30/16 16:03: Glucometer 340H 07/30/16 20:01: Glucometer 222H 07/31/16 04:44: Glucometer 94 07/31/16 11:07: Glucometer 239H 07/31/16 16:22: Glucometer 256H 07/31/16 21:09: Glucometer 201H 08/01/16 06:14: Glucometer 119H 08/01/16 11:07: Glucometer 269H 08/01/16 16:04: Glucometer 325H 08/01/16 20:52: Glucometer 220H 08/02/16 05:11: Glucometer 232H 08/02/16 11:06: Glucometer 246H Assessment/Plan Assessment Comminuted left intertrochanteric fracture s/p repair OSH ortho S/P trach for pneumonia and ards-now capped S/P espohageal rupture and repair OSH-with hx of esophageal varices NPO status on tube feeds-MBS to be done with ST-done HX of substance abuse and etoh use=Patient decline Psych consult DM meds adjusted with better control Depression on med Plan Continue PT/OT/ST F/U with Lucy and check CXR-done Trial of capping [id number] RT F/U Appreciate Dr Thorpe notes and orders Mold Insert Changer has made recs re tube feeds Discussed with RN last week Appreciate Dr Hidalgo notes and orders Trend Accuchecks and adjust meds as needed Appreciate MBS report and recs Monitor for any regurg with bolus tube feeds F/U with SW re what discharge options possib Encouraged Patient to accept NH Placement at least on a temporary basis Adjust Pain meds -Antidepressant begun [facility] consult rerquested-done patient declined consult Team Conference held yesterday-see report for full functional update and POC SW working on possible discharge to a NH tomorrow-Will f/u with her RAHEEM SHAW MD Aug 02, 2016 13:33
--- NOTE | 2016-08-02 13:37 | Physical Therapy Daily Note ---
PT Daily Note-Current Subjective Pt agrees to participate but during therapy, anxious to be finished. Transfers Functional [place] Measure 0=Not Assessed/NA 4=Minimal Assistance 1=Total Assistance 5=Supervision or Setup 2=Maximal Assistance 6=Modified [place] 3=Moderate Assistance 7=Complete IndependenceIRFPAI Quality Coding Scale 6 Independent with activity with or without an assistive device 5 Patient requires set up or clean up by helper. Patient completes activity by themselves 4 Supervision or touching assist (CGA). [place] provide cues , steadying assist 3 The helper provides less than half the effort to complete the activity 2 The helper provides more than half the effort to complete the activity 1 Dependent. The helper does all the effort to complete an activity 7 Patient refused to complete or attempt activity 9 The patient did not perform the activity before the current illness or injury 88 Not attempted due to Medical conditions or safety concerns Pt is SBA with sit to stand all attempts (x6) with FWW. Pt able to transfer on/ off Nu Step with SBA as well. Gait Training Pt ambulated x 150 ft, 130 ft and 175 ft wtih FWW with SBA. Pt tends to walk too fast and is quick to try to sit down. Requires cues to slow down and transfer with caution for safety reasons. Exercises NuStep Minutes: 15 (To facilitate LE strength for improved safety with gait and transfers. ) Assessment Current Status: Good Progress Progressing PT Short Term Goals Short Term Goals Time Frame: Jul 26, 2016 Transfers (B,C,W/C) (FIM): 4 (met 08/01/16) Gait (FIM): 4 (met 08/01/16) Distance (FIM): 3=150 ft Gait Assistive Device: FWW Wheelchair Distance: 80' Stairs (FIM): 2 # of Steps: 4 Stairs Level of Assist: 4 PT Shactor Helper Goals Shactor Helper Goals PT Shactor Helper Goals Time Frame: Aug 09, 2016 Transfers (B,C,W/C) (FIM): 6 Sit to Lying (QC): 6 (met) Lying-Sitting on Side/Bed(QC): 6 (met) Sit to Stand (QC): 6 Rollin Roll Left to Right (QC): 6 (met) Chair/[id number] Xfer(QC): 6 Car Transfer (QC): 5 Does the Patient Walk: Yes Gait (FIM): 6 Gait distance (FIM): 3=150 ft Walk 10 feet (QC): 6 Walk 10ft-Uneven Surface(QC): 6 Walk 50ft with 2 Turns (QC): 6 Walk 150 ft (QC): 6 Gait Level of Assist: 6 Gait Assistive Device: FWW Stairs (FIM): 5 # of Steps: 8 1 Step (curb) (QC): 5 4 Steps (QC): 5 12 Steps (QC): 88 Stairs Level Of Assist: 5 Picking up an Object (QC): 5 PT Plan Problem List Problem List: Activity Tolerance, Functional Strength Treatment/Plan Treatment Plan: Continue Plan of Care Treatment Plan: Bed Mobility, Education, Functional Activity Tavares, Functional Strength, Group Therapy (socialization, education), Gait, Safety, Therapeutic Exercise, Transfers Treatment Duration: Aug 09, 2016 Visits Per Week: 10-15 Minutes/Day (M-F): 60-90 Minutes/Day (Sat/[place]): prn Time/GCodes Time In: 1300 Time Out: 1331 Total Billed Treatment Time: 31 Total Billed Treatment visit EX 15 GT 16 DALIA PÉREZ PT Aug 02, 2016 13:37
[2016-08-02 18:24] VITALS: BP 124/80
[2016-08-03 04:41] VITALS: BP 125/80
[2016-08-03] MEDS: inSUlin (REGULAR) HUMAN 1 UNIT/0.01 ML (CHARGE PER UNIT) SC SCH ×4 (06:00→21:11)
[2016-08-03] MEDS: RT-ALBUTEROL/IPRATROPIUM 3 ML (DUONEB) VIAL INH SCH ×4 (07:06→19:40)
--- NOTE | 2016-08-03 08:36 | Progress Note (SOAP) ---
Subjective Subjective/Events-last exam patient has improved. Patient does things too quickly. Patient sitting up in chair this morning and alert Objective Exam Vital Signs Date Time Temp Pulse Resp B/P Pulse Ox O2 Delivery O2 Flow Rate FiO2 08/03/16 07:06 6.00 28 08/03/16 04:41 98.3 69 18 125/80 99 Room Air 08/03/16 02:46 6.00 28 08/02/16 20:20 Trach Collar 6.00 08/02/16 19:13 90 08/02/16 18:24 97.8 78 16 124/80 95 Room Air 08/02/16 15:05 92 08/02/16 09:02 Trach Collar 6.00 I & O 08/03/16 07:00 Intake Total 2075 ml Balance 2075 ml Capillary Refill : General Appearance: No Apparent Distress WD/WN Results Lab Laboratory Tests 08/02/16 11:06: Glucometer 246H 08/02/16 16:00: Glucometer 220H 08/02/16 21:13: Glucometer 392H 08/03/16 06:32: Glucometer 123H Assessment/Plan Assessment/Plan Assess & Plan/Chief Complaint hip fracture. Perforated esophageal ulcer . Hypertension diabetes. Previous suicide attempts. Depression. . 07/16/16. Hip fracture. Perforated esophageal ulcer. Hypertension. Diabetes. Previous suicide attempts. Depression. . 07/17/16. Hip fracture. Hypertension. Diabetes. Depression Hypertension. Diabetes.. Patient doing okay today. . 07/18/16. Hip fracture hypertension. Diabetes. Patient improving. . 07/19/16 hip fracture. Diabetes. Patient feel she is improving. Patient getting around with a walker. Sugars still elevated. More levimir. . 07/20/16. Sugars better. patient failed modified barium swallow study. Has disorder esophageal mobility. Hip fracture. Perforated esophageal ulcer. Hypertension.. . 07/23/16. Hip fracture. Perforated esophageal ulcer. Hypertension. Diabetes. Doing better. Previous suicide attempts.. . 07/24/16. Hip fracture area Perforated esophageal ulcer. Hypertension. Patient voices no complaints. . 07/25/16. Patient has no complaints. Patient tolerated this morning 07/26/16. Hip fracture. Perforated esophageal ulcer. Hypertension. Diabetes.. Patient lethargic.. . 12/09/16. Hip fracture. Perforated esophageal ulcer. Hypertension. Diabetes doing good. Patient had trach exchange today. . 13/12/16. Hip fracture. Perforated esophageal ulcer. Hypertension. Diabetes. Patient resting comfortably. Patient has no complaints today. . 07/31/16. Hip fracture. Perforated esophageal ulcer. Hypertension. Diabetes. Patient sleeping. To decrease the pain pills.. . area Hip fracture. Perforated esophageal ulcer. Hypertension. Diabetes. Patient at this moment doesn't want to go to an [facility]. . 08/02/16. Hip fracture. Perforated esophageal ulcer. Hypertension. Diabetes under control. History of depression. . 14/04/17. Hip fracture. Perforated esophageal ulcer. Hypertension. Diabetes. Patient seems positive today Diagnosis/Problems: Clinical Quality Measures DVT/VTE Risk/Contraindication: Risk Factor Score Per Nursin RFS Level Per Nursing on Admit: 3=High RANDI RIBEIRO DO Aug 03, 2016 08:36
[2016-08-03] MEDS: ENOXAPARIN 40 MG/0.4 ML (LOVENOX) SYR SC SCH (08:43)
[2016-08-03] MEDS: ASPIRIN E.C. 81 MG (ECOTRIN) TAB PO SCH (08:44)
[2016-08-03] MEDS: CARVEDILOL 12.5 MG (COREG) TABLET PO SCH ×2 (08:44→20:14)
[2016-08-03] MEDS: LORazepam 0.5 MG (ATIVAN) TABLET PEG PRN ×2 (08:44→20:14)
[2016-08-03] MEDS: NYSTATIN ORAL SUSP 5 ML UDC PO SCH ×4 (08:44→20:13)
[2016-08-03] MEDS: HYDROcodone/APAP 7.5 MG/325 MG (LORTAB, LORCET PLUS) TABLET PO PRN ×3 (08:44→20:14)
[2016-08-03] MEDS: inSUlin DETERMIR 1 UNIT/0.01 ML (LEVEMIR) CHARGE PER UNIT SQ SCH ×2 (08:45→20:14)
[2016-08-03] MEDS: SENNA W/DOCUSATE (SENOKOT S) TABLET PO SCH ×2 (08:45→20:14)
--- NOTE | 2016-08-03 08:45 | PM & R (SOAP) Progress Note ---
Subjective Subjective/Events-last exam Patient was seen in her room this AM Patient min assist for UB dressing Mod assist for Lower Body dressing.Trach Collor with humidified Air in place Continues with tube feede Dependent for tube feeds Objective Exam Last Set of Vital Signs Vital Signs Date Time Temp Pulse Resp B/P Pulse Ox O2 Delivery O2 Flow Rate FiO2 08/03/16 07:06 6.00 28 08/03/16 04:41 98.3 69 18 125/80 99 Room Air Capillary Refill : I&O Intake and Output 08/03/16 00:00 Intake Total 2100 ml Balance 2100 ml Intake Oral 0 ml Tube Feeding 1200 ml Other 900 ml # Voids 8 # Bowel Movements 2 General: Alert, Oriented X3, Cooperative, No Acute Distress HEENT: Atraumatic, PERRLA, EOMI, Mucous Memb Moist/[place] Neck: Other (trach) Lungs: Clear to Auscultation Heart: Regular Rate Abdomen: Normal Bowel Sounds, Soft, No Tenderness, Other (Peg tube in place) Extremities: Other (trace edema) Neuro: Other (Weakness both lower legs left >rt) Results Lab Laboratory Tests 07/31/16 11:07: Glucometer 239H 07/31/16 16:22: Glucometer 256H 07/31/16 21:09: Glucometer 201H 08/01/16 06:14: Glucometer 119H 08/01/16 11:07: Glucometer 269H 08/01/16 16:04: Glucometer 325H 08/01/16 20:52: Glucometer 220H 08/02/16 05:11: Glucometer 232H 08/02/16 11:06: Glucometer 246H 08/02/16 16:00: Glucometer 220H 08/02/16 21:13: Glucometer 392H 08/03/16 06:32: Glucometer 123H Assessment/Plan Assessment Comminuted left intertrochanteric fracture s/p repair OSH ortho S/P trach for pneumonia and ards-now capped S/P espohageal rupture and repair OSH-with hx of esophageal varices NPO status on tube feeds-MBS to be done with ST-done HX of substance abuse and etoh use=Patient decline Psych consult DM meds adjusted with better control Depression on med Plan Continue PT/OT/ST F/U with Lucy and check CXR-done Trial of capping [id number] RT F/U Appreciate Dr Thorpe notes and orders Assembly Associate has made recs re tube feeds Discussed with RN last week Appreciate Dr Hidalgo notes and orders Trend Accuchecks and adjust meds as needed Appreciate MBS report and recs Monitor for any regurg with bolus tube feeds F/U with SW re what discharge options possib Encouraged Patient to accept NH Placement at least on a temporary basis Adjust Pain meds -Antidepressant begun [facility] consult rerquested-done patient declined consult Team Conference held 08/01/16-see report for full functional update and POC SW working on possible discharge to a -Will f/u with her RAHEEM SHAW MD Aug 03, 2016 08:45
--- NOTE | 2016-08-03 08:52 | Occupational Ther Daily Note ---
OT Current Status-Daily Note Subjective Pt sleeping in bed, woke to name then rolled over and closed eyes. OT went to other side of bed and continued to talk to pt. Pt noticed that her bed was wet (pt incontinent) and decided to get up. Pt agreed to therapy. Mental Status/Objective Patient Orientation: Person, Place, Time, Situation Functional [place] Measure 0=Not Assessed/NA 4=Minimal Assistance 1=Total Assistance 5=Supervision or Setup 2=Maximal Assistance 6=Modified [place] 3=Moderate Assistance 7=Complete [place] Attachments: PEG Tube ADL-Treatment Pt is able to go from supine to sitting EOB with mod I. Pt is very quick to complete each task and requires cues to slow down and remember safety. Pt able to doff briefs by self then dress self after set up with SBA to stand and hike pants over hips. Close SBA with toilet transfer, toileting mod I. Pt ambulated back to recliner and was able to place pillows behind head and maneuver self to reclining position then set up from reclining to reach items on bedside table in front of her. Pt combed hair by self and was able to use oral swabs to cleanse mouth. Functional [place] Measure 0=Not Assessed/NA 4=Minimal Assistance 1=Total Assistance 5=Supervision or Setup 2=Maximal Assistance 6=Modified [place] 3=Moderate Assistance 7=Complete IndependenceIRFPAI Quality Coding Scale 6 Independent with activity with or without an assistive device 5 Patient requires set up or clean up by helper. Patient completes activity by themselves 4 Supervision or touching assist (CGA). [place] provide cues , steadying assist 3 The helper provides less than half the effort to complete the activity 2 The helper provides more than half the effort to complete the activity 1 Dependent. The helper does all the effort to complete an activity 7 Patient refused to complete or attempt activity 9 The patient did not perform the activity before the current illness or injury 88 Not attempted due to Medical conditions or safety concerns Upper Body (FIM): 5 Lower Body Dressing (FIM): 5 Toileting (FIM): 6 Transfers (B, C, W/C) (FIM): 5 Toilet/Commode Transfer (FIM): 5 Pt was able to complete UE light resistance theraband exercises with 1 cue to remember exercise, 1 set 10 reps. After therapy, pt reclining in chair with call light/phone in reach. Nrsg notified that pt wanted suctioned. All needs met in room. OT Short Term Goals Short Term Goals Time Frame: Jul 20, 2016 Lower Body Dressing(FIM): 5 (met-08/02/16) Transfers (B,C,W/C) (FIM): 4 (met 08/01/16) Toilet/Commode Transfer(FIM): 4 (met-08/02/16) Additional Short Term Goals: 2-Verbalize Understanding, 3-ImproveStrength/[place]ava[place] 1=Demonstrate adherence to instructed precautions during ADL tasks. 2=Patient will verbalize/demonstrate understanding of assistive devices/ modifications for ADL. 3=Patient will improve strength/tolerance for activity to enable patient to perform ADL's. OT Mineral Wool Insulation Supervisor Goals [place] Insulation Supervisor Goals Time Frame: Aug 09, 2016 Eating (FIM): 5 (not met) Eating (QC): 5 (not met) Groomin (not met) Oral Hygiene (QC): 6 (not met) Bathing(FIM): 5 (met-08/02/16) Shower/Bathe Self (QC): 5 (not met) Upper Body Dressing(FIM): 6 (not met) Upper Body Dressing (QC): 6 (not met) Lower Body Dressing(FIM): 6 (not met) Lower Body Dressing (QC): 6 (not met) On/Off Footwear (QC): 6 (not met) Toileting(FIM): 6 (not met) Toileting Hygiene (QC): 6 (not met) Toilet/Commode Transfer(FIM): 6 (not met) Toilet/Commode Transfer (QC): 6 (not met) Shower Transfer(FIM): 6 (not met) Comprehension(FIM): 6 Expression (FIM): 6 Social Interaction(FIM): 6 Problem Solving(FIM): 6 Memory(FIM): 6 Improve bilat UE strength to 5/5 to help with transfers and ADLs Additional Goals: 2-Verbalize Understanding, 3-ImproveStrength/[place] 1=Demonstrate adherence to instructed precautions during ADL tasks. 2=Patient will verbalize/demonstrate understanding of assistive devices/ modifications for ADL. 3=Patient will improve strength/tolerance for activity to enable patient to perform ADL's. OT Education/Plan Problem List/Assessment Pt would benefit from skilled OT to increase her independence in basic self care to allow her to return to son's home and decrease caregiver bruden Discharge Recommendations Plan/Recommendations: Continue POC Treatment Plan/Plan of Care Patient would benefit from OT for education, treatment and training to promote independence in ADL's, mobility, safety and/or upper extremity function for ADL' s. Plan of Care: ADL Retraining, Caregiver Training, Functional Mobility, Group Exercise/Act as Ind (education, exercise, activity tolerance, functional activities, safety), UE Funct Exercise/Act, UE Neuromus Re-Ed/Coord Treatment Duration: Aug 09, 2016 Visits Per Week: 10-11 Minutes/Day (M-F): 75-90 Minutes/Day (Sat/[place]): PRN Agreement: Yes Rehab Potential: Fair Time/GCodes Start Time: 08:00 Stop Time: 08:45 Total Time Billed (hr/min): 30 Billed Treatment Time 1 visit-ADL 2 (35 min) EX 1 (10 min) DALIA ENGLE Aug 03, 2016 08:52
--- NOTE | 2016-08-03 10:03 | Physical Therapy Daily Note ---
PT Daily Note-Current Subjective Agreeable to PT. Reports she feels she might be getting a chest cold. Transfers Functional [place] Measure 0=Not Assessed/NA 4=Minimal Assistance 1=Total Assistance 5=Supervision or Setup 2=Maximal Assistance 6=Modified [place] 3=Moderate Assistance 7=Complete IndependenceIRFPAI Quality Coding Scale 6 Independent with activity with or without an assistive device 5 Patient requires set up or clean up by helper. Patient completes activity by themselves 4 Supervision or touching assist (CGA). [place] provide cues , steadying assist 3 The helper provides less than half the effort to complete the activity 2 The helper provides more than half the effort to complete the activity 1 Dependent. The helper does all the effort to complete an activity 7 Patient refused to complete or attempt activity 9 The patient did not perform the activity before the current illness or injury 88 Not attempted due to Medical conditions or safety concerns Transfers (B, C, W/C) (FIM): 5 Pt is SBA with all functional transfers for safety purposes. Pt scores a 5 on all transfers. Gait Training Does the Patient Walk?: Yes Gait (FIM): 5 Distance (FIM): 3=150 ft Distance: 150 ft x 5 reps Gait Assistive Device: FWW Pt able to ambulate with SBA with FWW in room, bathroom and in the halls; able to make multiple turns and manage in tight spaces in her room. No noted LOB episodes, but supervision required for safety. Exercises Supine Ex: Bridging, Ankle pumps, Quad Set, Glut sets, Heel Slides, Short Arc Quads, Straight leg raise, Hip abd/add Supine Reps: 15 (LE strength for improved safety with transfers) Standing: Hip Abduction, Hamstring curls, Heel/toe raises, Marching, Mini squats Standing Reps: 15 (LE strength for funcitonal transfers and gait to progress to mod indep level) Assessment Current Status: Good Progress Pt progressing. Strength seems to be improving. Pt always anxious to be finished with therapy so she can rest. PT Short Term Goals Short Term Goals Time Frame: Jul 26, 2016 Transfers (B,C,W/C) (FIM): 4 (met 08/01/16) Gait (FIM): 4 (met 08/01/16) Distance (FIM): 3=150 ft Gait Assistive Device: FWW Wheelchair Distance: 80' Stairs (FIM): 2 # of Steps: 4 Stairs Level of Assist: 4 PT Instrument Repair Specialist Goals Instrument Repair Specialist Goals PT Instrument Repair Specialist Goals Time Frame: Aug 09, 2016 Transfers (B,C,W/C) (FIM): 6 Sit to Lying (QC): 6 (met) Lying-Sitting on Side/Bed(QC): 6 (met) Sit to Stand (QC): 6 Rollin Roll Left to Right (QC): 6 (met) Chair/Owa-yr-Mlsjx Xfer(QC): 6 Car Transfer (QC): 5 Does the Patient Walk: Yes Gait (FIM): 6 Gait distance (FIM): 3=150 ft Walk 10 feet (QC): 6 Walk 10ft-Uneven Surface(QC): 6 Walk 50ft with 2 Turns (QC): 6 Walk 150 ft (QC): 6 Gait Level of Assist: 6 Gait Assistive Device: FWW Stairs (FIM): 5 # of Steps: 8 1 Step (curb) (QC): 5 4 Steps (QC): 5 12 Steps (QC): 88 Stairs Level Of Assist: 5 Picking up an Object (QC): 5 PT Plan Problem List Problem List: Activity Tolerance, Functional Strength Treatment/Plan Treatment Plan: Continue Plan of Care Treatment Plan: Bed Mobility, Education, Functional Activity Tavares, Functional Strength, Group Therapy (socialization, education), Gait, Safety, Therapeutic Exercise, Transfers Treatment Duration: Aug 09, 2016 Visits Per Week: 10-15 Minutes/Day (M-F): 60-90 Minutes/Day (Sat/Marcano): prn Time/GCodes Time In: 915 Time Out: 1000 Total Billed Treatment Time: 45 Total Billed Treatment visit EX 23 GT 22 DALIA PÉREZ PT Aug 03, 2016 10:03
--- NOTE | 2016-08-03 10:57 | Speech Therapy Daily Note ---
Speech Daily Progress Note Subjective The patient was sitting upright in recliner upon entrance. The patient agreed to participate in dysphagia therapy on this date. Objective - Prior to the onset of dysphagia exercises, the patient requested to be suctioned by clinician. The clinician suctioned the patient's tracheostomy site , as well as, cleaned the patient's tracheostomy. The patient reported increased comfort following care. - Dysphagia Exercises: The patient demonstrated fair to good accuracy with dysphagia exercises following direct modeling from the clinician. The patient continued to require moderate encouragement for continued participation. The patient did wear Passy Mykel Valve for treatment session and continued to report comfort and adequate breathing. Assessment Assessment Current Status: Fair Progress Treatment Plan Continue Plan of Care Communication Comprehension: 5 Expression: 5 Social Cognition Social Interaction: 4 Problem Solvin Memory: 4 Speech Short Term Goals Short Term Goals Short Term Goals 1. The patient will tolerate trials of the least restrictive diet without signs/ symptoms of aspiration or laryngeal penetration. PROGRESSING 2. The patient will participate in a video swallow to definitely rule out aspiration. MET 3. The patient will demonstrate swallowing strategies, independently. PROGRESSING 4. The patient will demonstrate base of tongue, pharyngeal, and laryngeal elevation exercises with 80% accuracy and mild clinician cueing. PROGRESSING 5. The patient will demonstrate resonant voice techniques to aid in vocalizations with 80% accuracy and moderate clinician verbal cueing and direct modeling. NOT MET Time Frame-STG: Two Weeks Speech Fpc Goals Fpc Goals 1. The patient will tolerate the least restrictive diet without signs/symptoms of aspiration or laryngeal penetration. 2. The patient will demonstrate reduced laryngeal tension for increase use of audible voice. Time Frame: Eight Weeks Comprehension: 6 Expression: 6 Social Interaction: 6 Problem Solvin Memory: 6 Speech-Plan Treatment Plan Speech Therapy Treatment Plan: Continue Plan of Care Continue skilled dysphagia therapy for improved laryngeal, pharyngeal, and base of tongue musculature. Treatment Duration: Sep 07, 2016 # of days/week Four to Five Visits Per Week: Four to Five Minutes/Day (M-F): 30 Rehab Potential: Fair Safety Risks/Education Teaching Recipient: Patient Teaching Methods: Demonstration, Handout Response to Teaching: Return Demonstration, Reinforcement Needed Education Topics Provided: Dysphagia Exercises Time Speech Therapy Time In: 08:45 Speech Therapy Time Out: 09:15 Total Billed Time: 30 Billed Treatment Time ALEJANDRA Hernandez AUNG FRAGA Aug 03, 2016 10:57
[2016-08-03] MEDS ORDERED: CITA20TA7 PEG (12:28)
[2016-08-03] MEDS ORDERED: INSU100V5 SQ (12:28)
[2016-08-03] MEDS ORDERED: INSU100V3 SC (12:28)
[2016-08-03] MEDS ORDERED: IPRA3AMP INH ×2 (12:28)
[2016-08-03] MEDS ORDERED: MAGN400O7 PO (12:28)
[2016-08-03] MEDS ORDERED: BISA10SU12 PR (12:28)
[2016-08-03] MEDS ORDERED: HYDR-3816 PO (12:28)
--- NOTE | 2016-08-03 13:40 | Physical Therapy Daily Note ---
PT Daily Note-Current Subjective Patient in recliner pre tx, agrees to PT. States she has pain of 7/10 in her legs and chest, would like to decrease activity/resistance this afternoon because of pain. Nurse notified of pain. Appearance Patient in recliner post tx with nurse call, phone, tray, all needs met. Mental Status Patient Orientation: Person, Place, Situation Attachments: PEG Tube Transfers Functional [place] Measure 0=Not Assessed/NA 4=Minimal Assistance 1=Total Assistance 5=Supervision or Setup 2=Maximal Assistance 6=Modified [place] 3=Moderate Assistance 7=Complete IndependenceIRFPAI Quality Coding Scale 6 Independent with activity with or without an assistive device 5 Patient requires set up or clean up by helper. Patient completes activity by themselves 4 Supervision or touching assist (CGA). [place] provide cues , steadying assist 3 The helper provides less than half the effort to complete the activity 2 The helper provides more than half the effort to complete the activity 1 Dependent. The helper does all the effort to complete an activity 7 Patient refused to complete or attempt activity 9 The patient did not perform the activity before the current illness or injury 88 Not attempted due to Medical conditions or safety concerns Transfers (B, C, W/C) (FIM): 4 Sit to/from Stand: 4 Patient moves a little too fast and is impulsive and does not keep track of attachments. Gait Training Gait (FIM): 4 Distance: 150'x2 Gait Level of Assist: 4 Gait Persons Needed: 1 Gait Assistive Device: FWW left knee hyperextends, impulsive, poor safety awareness Exercises NuStep Minutes: 10 NuStep Workload: 3 Treatments transfers, ambulation, functional strengthening, patient was also toileted once Assessment Current Status: Fair Progress patient kemi well, her ambulation seemed a little stronger, more steady than last time I saw her PT Short Term Goals Short Term Goals Time Frame: Jul 26, 2016 Transfers (B,C,W/C) (FIM): 4 (met 08/01/16) Gait (FIM): 4 (met 08/01/16) Distance (FIM): 3=150 ft Gait Assistive Device: FWW Wheelchair Distance: 80' Stairs (FIM): 2 # of Steps: 4 Stairs Level of Assist: 4 PT School Year Nanny Goals School Year Nanny Goals PT School Year Nanny Goals Time Frame: Aug 09, 2016 Transfers (B,C,W/C) (FIM): 6 Sit to Lying (QC): 6 (met) Lying-Sitting on Side/Bed(QC): 6 (met) Sit to Stand (QC): 6 Rollin Roll Left to Right (QC): 6 (met) Chair/Tof-ow-Apxqh Xfer(QC): 6 Car Transfer (QC): 5 Does the Patient Walk: Yes Gait (FIM): 6 Gait distance (FIM): 3=150 ft Walk 10 feet (QC): 6 Walk 10ft-Uneven Surface(QC): 6 Walk 50ft with 2 Turns (QC): 6 Walk 150 ft (QC): 6 Gait Level of Assist: 6 Gait Assistive Device: FWW Stairs (FIM): 5 # of Steps: 8 1 Step (curb) (QC): 5 4 Steps (QC): 5 12 Steps (QC): 88 Stairs Level Of Assist: 5 Picking up an Object (QC): 5 PT Plan Problem List Problem List: Activity Tolerance, Functional Strength, Safety, Balance, Gait, Transfer, Bed Mobility Treatment/Plan Treatment Plan: Continue Plan of Care Treatment Plan: Bed Mobility, Education, Functional Activity Tavares, Functional Strength, Group Therapy (socialization, education), Gait, Safety, Therapeutic Exercise, Transfers Treatment Duration: Aug 09, 2016 Visits Per Week: 10-15 Minutes/Day (M-F): 60-90 Minutes/Day (Sat/Marcano): prn Safety Risks/Education Patient Education: Gait Training, Transfer Techniques, Safety Issues Teaching Recipient: Patient Teaching Methods: Demonstration, Discussion Response to Teaching: Reinforcement Needed Time/GCodes Time In: 1305 Time Out: 1335 Total Billed Treatment Time: 30 Total Billed Treatment 1 visit EX 10 min GT 20 min JOSEE SPARKS PT Aug 03, 2016 13:40
[2016-08-03 18:33] VITALS: BP 132/84
[2016-08-04 05:00] VITALS: BP 118/74
[2016-08-04] MEDS: inSUlin (REGULAR) HUMAN 1 UNIT/0.01 ML (CHARGE PER UNIT) SC SCH ×4 (05:49→21:26)
[2016-08-04] MEDS: RT-ALBUTEROL/IPRATROPIUM 3 ML (DUONEB) VIAL INH SCH ×4 (07:00→19:36)
[2016-08-04] MEDS: CARVEDILOL 12.5 MG (COREG) TABLET PO SCH ×2 (09:00→20:33)
[2016-08-04] MEDS: SENNA W/DOCUSATE (SENOKOT S) TABLET PO SCH ×2 (09:00→20:33)
[2016-08-04] MEDS: NYSTATIN ORAL SUSP 5 ML UDC PO SCH ×4 (09:00→20:33)
[2016-08-04] MEDS: ASPIRIN E.C. 81 MG (ECOTRIN) TAB PO SCH (09:00)
[2016-08-04] MEDS: inSUlin DETERMIR 1 UNIT/0.01 ML (LEVEMIR) CHARGE PER UNIT SQ SCH ×2 (09:01→20:33)
[2016-08-04] MEDS: ENOXAPARIN 40 MG/0.4 ML (LOVENOX) SYR SC SCH (09:01)
[2016-08-04] MEDS: HYDROcodone/APAP 7.5 MG/325 MG (LORTAB, LORCET PLUS) TABLET PO PRN ×3 (11:09→20:40)
[2016-08-04 18:00] VITALS: BP 137/83
[2016-08-04] MEDS: CYCLOBENZAPRINE 10 MG (FLEXERIL) TAB PO PRN (20:33)
[2016-08-04] MEDS: LORazepam 0.5 MG (ATIVAN) TABLET PEG PRN (20:33)
[2016-08-05] MEDS: inSUlin (REGULAR) HUMAN 1 UNIT/0.01 ML (CHARGE PER UNIT) SC SCH ×4 (05:07→20:13)
[2016-08-05 05:09] VITALS: BP 97/60
[2016-08-05] MEDS: RT-ALBUTEROL/IPRATROPIUM 3 ML (DUONEB) VIAL INH SCH ×4 (08:28→18:55)
[2016-08-05] MEDS: ASPIRIN E.C. 81 MG (ECOTRIN) TAB PO SCH (09:43)
[2016-08-05] MEDS: SENNA W/DOCUSATE (SENOKOT S) TABLET PO SCH ×2 (09:43→20:15)
[2016-08-05] MEDS: CARVEDILOL 12.5 MG (COREG) TABLET PO SCH ×2 (09:44→20:12)
[2016-08-05] MEDS: NYSTATIN ORAL SUSP 5 ML UDC PO SCH ×4 (09:44→20:12)
[2016-08-05] MEDS: inSUlin DETERMIR 1 UNIT/0.01 ML (LEVEMIR) CHARGE PER UNIT SQ SCH ×2 (09:44→20:13)
[2016-08-05] MEDS: ENOXAPARIN 40 MG/0.4 ML (LOVENOX) SYR SC SCH (09:44)
[2016-08-05] MEDS: HYDROcodone/APAP 7.5 MG/325 MG (LORTAB, LORCET PLUS) TABLET PO PRN ×3 (12:38→22:31)
[2016-08-05 17:35] VITALS: BP 124/67
[2016-08-05] MEDS: CYCLOBENZAPRINE 10 MG (FLEXERIL) TAB PO PRN (20:12)
[2016-08-05] MEDS: LORazepam 0.5 MG (ATIVAN) TABLET PEG PRN (20:12)
[2016-08-06 05:37] VITALS: BP 104/62
[2016-08-06] MEDS: inSUlin (REGULAR) HUMAN 1 UNIT/0.01 ML (CHARGE PER UNIT) SC SCH ×2 (05:37→11:00)
[2016-08-06] MEDS: RT-ALBUTEROL/IPRATROPIUM 3 ML (DUONEB) VIAL INH SCH (06:45)
--- NOTE | 2016-08-06 08:42 | Pulmonary Progress Note ---
Subjective Subjective/Events-last exam No complications noted currently. Exam Exam Vital Signs Date Time Temp Pulse Resp B/P Pulse Ox O2 Delivery O2 Flow Rate FiO2 08/06/16 06:45 6.00 28 08/06/16 05:37 98.0 81 18 104/62 99 Trach Collar 6.00 08/06/16 03:38 6.00 28 08/05/16 21:00 Trach Collar 6.00 08/05/16 18:55 98 6.00 28 08/05/16 17:35 96.6 80 18 124/67 99 Trach Collar 6.00 08/05/16 15:18 94 6.00 28 08/05/16 11:20 88 08/05/16 09:00 Trach Collar 6.00 I & O 08/06/16 07:00 Intake Total 2100 ml Balance 2100 ml General Appearance: No Apparent Distress WD/WN HEENT: Normal ENT Inspection Neck: Full Range of Motion Respiratory: Chest Non Tender No Accessory Muscle Use No Respiratory Distress Cardiovascular: Regular Rate, Rhythm No Murmur Gastrointestinal: normal bowel sounds non tender soft Neurologic/Psychiatric: Alert Oriented x3 Skin: Normal Color Warm/Dry Lymphatic: No Adenopathy Assessment/Plan Assessment/Plan Tracheostomy s/p ARDS monitor Dysphagia - high risk for aspiration -Pt failed barium swallow. She is high risk for aspiration. will change to uncuffed fenestrated tracheostomy tube. RT has ordered tube. Clinical Quality Measures DVT/VTE Risk/Contraindication: Risk Factor Score Per Nursin RFS Level Per Nursing on Admit: 3=High AUDELIA JUSTICE DO Aug 06, 2016 08:42
--- NOTE | 2016-08-06 08:43 | Occupational Ther Daily Note ---
OT Current Status-Daily Note Subjective Pt sleeping in bed, woke easily to name. Pt agreed to therapy. No c/o pain at this time. Mental Status/Objective Patient Orientation: Person, Place, Time, Situation Functional [place] Measure 0=Not Assessed/NA 4=Minimal Assistance 1=Total Assistance 5=Supervision or Setup 2=Maximal Assistance 6=Modified [place] 3=Moderate Assistance 7=Complete [place] Attachments: PEG Tube ADL-Treatment Functional [place] Measure 0=Not Assessed/NA 4=Minimal Assistance 1=Total Assistance 5=Supervision or Setup 2=Maximal Assistance 6=Modified [place] 3=Moderate Assistance 7=Complete IndependenceIRFPAI Quality Coding Scale 6 Independent with activity with or without an assistive device 5 Patient requires set up or clean up by helper. Patient completes activity by themselves 4 Supervision or touching assist (CGA). [place] provide cues , steadying assist 3 The helper provides less than half the effort to complete the activity 2 The helper provides more than half the effort to complete the activity 1 Dependent. The helper does all the effort to complete an activity 7 Patient refused to complete or attempt activity 9 The patient did not perform the activity before the current illness or injury 88 Not attempted due to Medical conditions or safety concerns Grooming (FIM): 6 (No teeth, pt cleanses mouth with oral swabs. Completes grooming by self in sitting.) Oral Hygiene (QC): 6 Toileting Hygiene (QC): 6 (Using BSC, grabbars and FWW pt is able to complete own toileting skills.) Bathing (FIM): 5 (Using grabbars, shower bench and hand held shower pt is able to complete with supervision.) Shower/Bathe Self (QC): 4 (Using grabbars, shower bench and hand held shower pt is able to complete with supervision.) Upper Body (FIM): 5 (After set up, pt is able complete upper body dressing.) Upper Body Dressing (QC): 5 (After set up, pt is able complete upper body dressing.) Lower Body Dressing (FIM): 4 (Pt is inconsistent with donning L sock by self. After setup, pt requires SBA for lower body dressing when standing to hike pants over hips.) Lower Body Dressing (QC): 3 (Pt is inconsistent with donning L sock by self. After setup, pt requires SBA for lower body dressing when standing to hike pants over hips.) On/Off Footwear (QC): 3 (Pt is inconsistent with donning L sock by self. ) Toileting (FIM): 5 (SBA using FWW, grabbars and BSC for toileting.) Transfers (B, C, W/C) (FIM): 5 (SBA using FWW, for transfers. Pt moves quickly and can lose balance unexpectedly.) Toilet/Commode Transfer (FIM): 5 (SBA using FWW, grabbars and BSC for transfer. ) Toilet Transfer (QC): 4 (SBA using FWW, grabbars and BSC for transfer.) Shower Transfer(FIM): 5 (SBA using FWW, grabbars and shower bench for transfer. ) Pt gives up easily when tasks are hard and will ask for help to complete. Pt needs to slow down during ADLs and transfers for safety. Pt inconsistent with donning/doffing L sock, will ask for it to be put on for her. Pt unmotivated during therapies and needs encouragement. After therapy, pt lying in bed with call light/phone in reach. All needs met in room. OT Short Term Goals Short Term Goals Time Frame: Jul 20, 2016 Lower Body Dressing(FIM): 5 (met-08/02/16) Transfers (B,C,W/C) (FIM): 4 (met 08/01/16) Toilet/Commode Transfer(FIM): 4 (met-08/02/16) Additional Short Term Goals: 2-Verbalize Understanding, 3-ImproveStrength/Tavares 1=Demonstrate adherence to instructed precautions during ADL tasks. 2=Patient will verbalize/demonstrate understanding of assistive devices/ modifications for ADL. 3=Patient will improve strength/tolerance for activity to enable patient to perform ADL's. OT Fpc Goals Fpc Goals Time Frame: Aug 09, 2016 Eating (FIM): 5 (not met) Eating (QC): 5 (not met) Groomin (not met) Oral Hygiene (QC): 6 (not met) Bathing(FIM): 5 (met-08/02/16) Shower/Bathe Self (QC): 5 (not met) Upper Body Dressing(FIM): 6 (not met) Upper Body Dressing (QC): 6 (not met) Lower Body Dressing(FIM): 6 (not met) Lower Body Dressing (QC): 6 (not met) On/Off Footwear (QC): 6 (not met) Toileting(FIM): 6 (not met) Toileting Hygiene (QC): 6 (not met) Toilet/Commode Transfer(FIM): 6 (not met) Toilet/Commode Transfer (QC): 6 (not met) Shower Transfer(FIM): 6 (not met) Comprehension(FIM): 6 Expression (FIM): 6 Social Interaction(FIM): 6 Problem Solving(FIM): 6 Memory(FIM): 6 Improve bilat UE strength to 5/5 to help with transfers and ADLs Additional Goals: 2-Verbalize Understanding, 3-ImproveStrength/Tava[place] 1=Demonstrate adherence to instructed precautions during ADL tasks. 2=Patient will verbalize/demonstrate understanding of assistive devices/ modifications for ADL. 3=Patient will improve strength/tolerance for activity to enable patient to perform ADL's. OT Education/Plan Problem List/Assessment Pt would benefit from skilled OT to increase her independence in basic self care to allow her to return to son's home and decrease caregiver bruden Discharge Recommendations Plan/Recommendations: Continue POC Treatment Plan/Plan of Care Patient would benefit from OT for education, treatment and training to promote independence in ADL's, mobility, safety and/or upper extremity function for ADL' s. Plan of Care: ADL Retraining, Caregiver Training, Functional Mobility, Group Exercise/Act as Ind (education, exercise, activity tolerance, functional activities, safety), UE Funct Exercise/Act, UE Neuromus Re-Ed/Coord Treatment Duration: Aug 09, 2016 Visits Per Week: 10-11 Minutes/Day (M-F): 75-90 Minutes/Day (Sat/Marcano): PRN Agreement: Yes Rehab Potential: Fair Time/GCodes Start Time: 08:00 Stop Time: 08:45 Total Time Billed (hr/min): 45 Billed Treatment Time 1 visit-ADL 3 (45 min) DALIA ENGLE Aug 06, 2016 08:43
--- NOTE | 2016-08-06 08:53 | Progress Note (SOAP) ---
Subjective Subjective/Events-last exam patient to be discharged today. Hip fracture. PEG tube. Trach. ` Patient is awake and alert this morning Objective Exam Vital Signs Date Time Temp Pulse Resp B/P Pulse Ox O2 Delivery O2 Flow Rate FiO2 08/06/16 06:45 6.00 28 08/06/16 05:37 98.0 81 18 104/62 99 Trach Collar 6.00 08/06/16 03:38 6.00 28 08/05/16 21:00 Trach Collar 6.00 08/05/16 18:55 98 6.00 28 08/05/16 17:35 96.6 80 18 124/67 99 Trach Collar 6.00 08/05/16 15:18 94 6.00 28 08/05/16 11:20 88 08/05/16 09:00 Trach Collar 6.00 I & O 08/06/16 07:00 Intake Total 2100 ml Balance 2100 ml Capillary Refill : General Appearance: No Apparent Distress WD/WN HEENT: Normal ENT Inspection Neck: Normal Inspection Respiratory: Chest Non Tender No Accessory Muscle Use No Respiratory Distress Cardiovascular: Regular Rate, Rhythm Gastrointestinal: non tender soft Results Lab Laboratory Tests 08/05/16 11:37: Glucometer 248H 08/05/16 16:19: Glucometer 314H 08/05/16 20:04: Glucometer 275H 08/06/16 05:23: Glucometer 122H Assessment/Plan Assessment/Plan Assess & Plan/Chief Complaint hip fracture. Perforated esophageal ulcer . Hypertension diabetes. Previous suicide attempts. Depression. . 07/16/16. Hip fracture. Perforated esophageal ulcer. Hypertension. Diabetes. Previous suicide attempts. Depression. . 07/17/16. Hip fracture. Hypertension. Diabetes. Depression Hypertension. Diabetes.. Patient doing okay today. . 07/18/16. Hip fracture hypertension. Diabetes. Patient improving. . 07/19/16 hip fracture. Diabetes. Patient feel she is improving. Patient getting around with a walker. Sugars still elevated. More levimir. . 07/20/16. Sugars better. patient failed modified barium swallow study. Has disorder esophageal mobility. Hip fracture. Perforated esophageal ulcer. Hypertension.. . 07/23/16. Hip fracture. Perforated esophageal ulcer. Hypertension. Diabetes. Doing better. Previous suicide attempts.. . 07/24/16. Hip fracture area Perforated esophageal ulcer. Hypertension. Patient voices no complaints. . 07/25/16. Patient has no complaints. Patient tolerated this morning 07/26/16. Hip fracture. Perforated esophageal ulcer. Hypertension. Diabetes.. Patient lethargic.. . 12/09/16. Hip fracture. Perforated esophageal ulcer. Hypertension. Diabetes doing good. Patient had trach exchange today. . 13/12/16. Hip fracture. Perforated esophageal ulcer. Hypertension. Diabetes. Patient resting comfortably. Patient has no complaints today. . 07/31/16. Hip fracture. Perforated esophageal ulcer. Hypertension. Diabetes. Patient sleeping. To decrease the pain pills.. . area Hip fracture. Perforated esophageal ulcer. Hypertension. Diabetes. Patient at this moment doesn't want to go to an [facility]. . 08/02/16. Hip fracture. Perforated esophageal ulcer. Hypertension. Diabetes under control. History of depression. . 14/04/17. Hip fracture. Perforated esophageal ulcer. Hypertension. Diabetes. Patient seems positive today. . 08/06/16. Hip fracture. Perforated esophageal ulcer. Hypertension. Diabetes. Patient to be discharged today Diagnosis/Problems: Clinical Quality Measures DVT/VTE Risk/Contraindication: Risk Factor Score Per Nursin RFS Level Per Nursing on Admit: 3=High RANDI RIBEIRO DO Aug 06, 2016 08:53
[2016-08-06] MEDS: ENOXAPARIN 40 MG/0.4 ML (LOVENOX) SYR SC SCH (10:00)
[2016-08-06] MEDS: CARVEDILOL 12.5 MG (COREG) TABLET PO SCH (10:01)
[2016-08-06] MEDS: NYSTATIN ORAL SUSP 5 ML UDC PO SCH ×2 (10:01→14:03)
[2016-08-06] MEDS: SENNA W/DOCUSATE (SENOKOT S) TABLET PO SCH (10:01)
[2016-08-06] MEDS: LORazepam 0.5 MG (ATIVAN) TABLET PEG PRN (10:01)
[2016-08-06] MEDS: inSUlin DETERMIR 1 UNIT/0.01 ML (LEVEMIR) CHARGE PER UNIT SQ SCH (10:01)
[2016-08-06] MEDS: HYDROcodone/APAP 7.5 MG/325 MG (LORTAB, LORCET PLUS) TABLET PO PRN (10:01)
[2016-08-06] MEDS: ASPIRIN E.C. 81 MG (ECOTRIN) TAB PO SCH (10:01)
--- NOTE | 2016-08-06 13:40 | Therapy Team Discharge Summary ---
Therapy Discharge Summary Discharge Recommendations Date of Discharge Therapy D/C Recommendations: Home w/ Family Support, Occupational Therapy Home Care, Scheduled Assistance Speech-Language Pathology The patient was admitted to [facility] following a hip fracture and esophageal perforation. The patient arrived with a PEG tube and tracheostomy tube. Throughout the patient's stay, skilled speech therapy focused on dysphagia interventions to strengthen laryngeal, pharyngeal and base of tongue musculature. The patient participated in a video swallow, which demonstrated aspiration of honey-thick liquid, therefore, the patient remained NPO. The patient's therapy was influenced by reduced participation and motivation for improvement. The patient did not meet swallowing goals initially placed, however, did demonstrate mild improvement with independence of dysphagia exercises. Skilled speech therapy is recommended post discharge. PT File Keeper Goals File Keeper Goals PT File Keeper Goals Time Frame: Aug 09, 2016 Transfers (B,C,W/C) (FIM): 6 Roll Left to Right (QC): 6 (met) Sit to Lying (QC): 6 (met) Lying-Sitting on Side/Bed(QC): 6 (met) Sit to Stand (QC): 6 Chair/Lbc-bv-Vwagy Xfer(QC): 6 Car Transfer (QC): 5 Does the Patient Walk: Yes Gait (FIM): 6 Gait distance (FIM): 3=150 ft Walk 10 feet (QC): 6 Walk 10ft-Uneven Surface(QC): 6 Walk 50ft with 2 Turns (QC): 6 Walk 150 ft (QC): 6 Gait Level of Assist: 6 Gait Assistive Device: FWW Stairs (FIM): 5 # of Steps: 8 1 Step (curb) (QC): 5 4 Steps (QC): 5 12 Steps (QC): 88 Stairs Level Of Assist: 5 Picking up an Object (QC): 5 OT Half-Way Goals Half-Way Goals Time Frame: Aug 09, 2016 Eating (FIM): 5 (not met) Eating (QC): 5 (not met) Oral Hygiene (QC): 6 (not met) Grooming(FIM): 6 (not met) Bathing(FIM): 5 (met-08/02/16) Shower/Bathe Self (QC): 5 (not met) Upper Body Dressing(FIM): 6 (not met) Upper Body Dressing (QC): 6 (not met) Lower Body Dressing(FIM): 6 (not met) Lower Body Dressing (QC): 6 (not met) On/Off Footwear (QC): 6 (not met) Toileting(FIM): 6 (not met) Toileting Hygiene (QC): 6 (not met) Toilet/Commode Transfer(FIM): 6 (not met) Toilet/Commode Transfer (QC): 6 (not met) Shower Transfer(FIM): 6 (not met) Comprehension(FIM): 6 Expression (FIM): 6 Social Interaction(FIM): 6 Problem Solving(FIM): 6 Memory(FIM): 6 Improve bilat UE strength to 5/5 to help with transfers and ADLs Additional Goals: 2-Verbalize Understanding, 3-ImproveStrength/Tavares 1=Demonstrate adherence to instructed precautions during ADL tasks. 2=Patient will verbalize/demonstrate understanding of assistive devices/ modifications for ADL. 3=Patient will improve strength/tolerance for activity to enable patient to perform ADL's. Speech Half-Way Goals File Keeper Goals 1. The patient will tolerate the least restrictive diet without signs/symptoms of aspiration or laryngeal penetration. 2. The patient will demonstrate reduced laryngeal tension for increase use of audible voice. Time Frame: Eight Weeks Comprehension: 6 (NOT MET) Expression: 6 (MET) Social Interaction: 6 (NOT MET) Problem Solvin (NOT MET) Memory: 6 (NOT MET) AUNG FRAGA Aug 06, 2016 13:40
--- NOTE | 2016-08-06 13:59 | Therapy Team Discharge Summary ---
Therapy Discharge Summary Discharge Recommendations Date of Discharge August 06, 2016 Therapy D/C Recommendations: Home w/ Family Support, Occupational Therapy Home Care, Long-Term (TCU/NH) Occupational Therapy Pt was seen for skilled OT after ARDS, ARF and L hip fx with repair. On admission she needed mod assist with transfers, lower body dressing, toileting, and toilet transfers, setup/supervision with grooming, bathing, upper body dressing and was NPO for eating (has PEG tube and she can't manage feedings). By discharge she was mod I with grooming, setup for bathing, upper body dressing , toileting, toilet and shower transfers and NPO for eating. She used FWW, shower bench, grab bars, hand held shower. Pt was impulsive, which limited her independence due to decreased safety. See tx plan for goals met. DC to skilled unit. Recommend continued OT PT Group Home Goals Group Home Goals PT Telecom Assistant Goals Time Frame: Aug 09, 2016 Transfers (B,C,W/C) (FIM): 6 Roll Left to Right (QC): 6 (met) Sit to Lying (QC): 6 (met) Lying-Sitting on Side/Bed(QC): 6 (met) Sit to Stand (QC): 6 Chair/Pkk-ej-Gaotz Xfer(QC): 6 Car Transfer (QC): 5 Does the Patient Walk: Yes Gait (FIM): 6 Gait distance (FIM): 3=150 ft Walk 10 feet (QC): 6 Walk 10ft-Uneven Surface(QC): 6 Walk 50ft with 2 Turns (QC): 6 Walk 150 ft (QC): 6 Gait Level of Assist: 6 Gait Assistive Device: FWW Stairs (FIM): 5 # of Steps: 8 1 Step (curb) (QC): 5 4 Steps (QC): 5 12 Steps (QC): 88 Stairs Level Of Assist: 5 Picking up an Object (QC): 5 OT Telecom Assistant Goals Telecom Assistant Goals Time Frame: Aug 09, 2016 Eating (FIM): 5 (not met) Eating (QC): 5 (not met) Oral Hygiene (QC): 6 (not met) Grooming(FIM): 6 (not met) Bathing(FIM): 5 (met-08/02/16) Shower/Bathe Self (QC): 5 (not met) Upper Body Dressing(FIM): 6 (not met) Upper Body Dressing (QC): 6 (not met) Lower Body Dressing(FIM): 6 (not met) Lower Body Dressing (QC): 6 (not met) On/Off Footwear (QC): 6 (not met) Toileting(FIM): 6 (not met) Toileting Hygiene (QC): 6 (not met) Toilet/Commode Transfer(FIM): 6 (not met) Toilet/Commode Transfer (QC): 6 (not met) Shower Transfer(FIM): 6 (not met) Comprehension(FIM): 6 (NOT MET) Expression (FIM): 6 (MET) Social Interaction(FIM): 6 (NOT MET) Problem Solving(FIM): 6 (NOT MET) Memory(FIM): 6 (NOT MET) Improve bilat UE strength to 5/5 to help with transfers and ADLs Additional Goals: 2-Verbalize Understanding, 3-ImproveStrength/Tavares 1=Demonstrate adherence to instructed precautions during ADL tasks. 2=Patient will verbalize/demonstrate understanding of assistive devices/ modifications for ADL. 3=Patient will improve strength/tolerance for activity to enable patient to perform ADL's. Speech Group Home Goals Telecom Assistant Goals 1. The patient will tolerate the least restrictive diet without signs/symptoms of aspiration or laryngeal penetration. 2. The patient will demonstrate reduced laryngeal tension for increase use of audible voice. Time Frame: Eight Weeks Comprehension: 6 (NOT MET) Expression: 6 (MET) Social Interaction: 6 (NOT MET) Problem Solvin (NOT MET) Memory: 6 (NOT MET) WARD PARISI OT Aug 06, 2016 13:59
--- NOTE | 2016-08-06 14:13 | Physical Therapy Daily Note ---
PT Daily Note-Current Subjective Pt reports she is discharging today to "across the street" Transfers Functional [place] Measure 0=Not Assessed/NA 4=Minimal Assistance 1=Total Assistance 5=Supervision or Setup 2=Maximal Assistance 6=Modified [place] 3=Moderate Assistance 7=Complete IndependenceIRFPAI Quality Coding Scale 6 Independent with activity with or without an assistive device 5 Patient requires set up or clean up by helper. Patient completes activity by themselves 4 Supervision or touching assist (CGA). [place] provide cues , steadying assist 3 The helper provides less than half the effort to complete the activity 2 The helper provides more than half the effort to complete the activity 1 Dependent. The helper does all the effort to complete an activity 7 Patient refused to complete or attempt activity 9 The patient did not perform the activity before the current illness or injury 88 Not attempted due to Medical conditions or safety concerns Transfers (B, C, W/C) (FIM): 6 Scootin Rollin Roll Left to Right (QC): 6 Supine to/from Sit: 6 Sit to/from Stand: 6 Sit to Lying (QC): 6 Sit to Stand (QC): 6 Chair/Hua-ds-Phcxj Xfer(QC): 5 (Supervision) Car Transfer (QC): 88 (wheelchair van used. ) Pt is mod indep with transfer, she becomes SBA once she begins to ambulate; SPT to the wheelchair does not affect FIM as she does not use a wheelchair for primary mobility. Weight Bearing Weight Bearing Restriction: Weight Bearing/Tolerated Gait Training Does the Patient Walk?: Yes Gait (FIM): 5 Distance: 150 ft x 2 Walk 10 feet (QC): 5 (in room ) Walk 50 ft with 2 Turns(QC): 5 (in room and to the restroom) Walk 150 ft (QC): 5 Walking 10ft/uneven surface-QC: 5 Gait Level of Assist: 5 Gait Persons Needed: 1 Gait Assistive Device: FWW Pt remains at SBA level for safety. No LOB noted this date but feel it is in her best interest to be supervised with ambulation due to LE weakness persisting. Wheelchair Training Does the Pt Use a Wheelchair?: No Stair Training Stair Training: Handrails/: 2 handrails Stairs (FIM): 2 #of Steps: 4 1 Step (curb) (QC): 4 (CGA) 4 Steps (QC): 4 (CGA) 12 Steps (QC): 88 (Too difficult to do more than 4 steps; fall risk ) Balance Picking up an Object (QC): 88 (unsafe; fall risk) Assessment Current Status: Good Progress Pt has made functional gains and has improved greatly since evaluation. She would benefit from continued therapy services post discharge to get her to a mod indep level of ambulation and continue to progress LE strength. PT Short Term Goals Short Term Goals Time Frame: Jul 26, 2016 Transfers (B,C,W/C) (FIM): 4 (met 08/01/16) Gait (FIM): 4 (met 08/01/16) Distance (FIM): 3=150 ft Gait Assistive Device: FWW Wheelchair Distance: 80' Stairs (FIM): 2 # of Steps: 4 Stairs Level of Assist: 4 PT Economic Developer Goals Economic Developer Goals PT Economic Developer Goals Time Frame: Aug 09, 2016 Transfers (B,C,W/C) (FIM): 6 (met 08/06/16) Sit to Lying (QC): 6 (met) Lying-Sitting on Side/Bed(QC): 6 (met) Sit to Stand (QC): 6 Rollin Roll Left to Right (QC): 6 (met) Chair/Unc-wi-Ahzik Xfer(QC): 6 Car Transfer (QC): 5 Does the Patient Walk: Yes Gait (FIM): 6 (unmet; remains at a 5) Gait distance (FIM): 3=150 ft Walk 10 feet (QC): 6 Walk 10ft-Uneven Surface(QC): 6 Walk 50ft with 2 Turns (QC): 6 Walk 150 ft (QC): 6 Gait Level of Assist: 6 Gait Assistive Device: FWW Stairs (FIM): 5 (unmet; remains at a 2) # of Steps: 8 1 Step (curb) (QC): 5 4 Steps (QC): 5 12 Steps (QC): 88 Stairs Level Of Assist: 5 Picking up an Object (QC): 5 PT Plan Treatment/Plan Treatment Plan: Discontinue PT Treatment Plan: Bed Mobility, Education, Functional Activity Tavares, Functional Strength, Group Therapy (socialization, education), Gait, Safety, Therapeutic Exercise, Transfers Treatment Duration: Aug 09, 2016 Visits Per Week: 10-15 Minutes/Day (M-F): 60-90 Minutes/Day (Sat/Marcano): prn Discharge Recommendations Therapy D/C Recommendations: Alf (TCU/NH) Time/GCodes Time In: 1210 Time Out: 1233 Total Billed Treatment Time: 23 Total Billed Treatment visit FA 23 DALIA PÉREZ PT Aug 06, 2016 14:13
--- NOTE | 2016-08-06 17:57 | PM & R (SOAP) Progress Note ---
Subjective Subjective/Events-last exam Patient discharged to [facility] today Will have f/u with physician there. Objective Exam Last Set of Vital Signs Vital Signs Date Time Temp Pulse Resp B/P Pulse Ox O2 Delivery O2 Flow Rate FiO2 08/06/16 09:00 Trach Collar 6.00 08/06/16 06:45 28 08/06/16 05:37 98.0 81 18 104/62 99 Capillary Refill : I&O Intake and Output 08/06/16 00:00 Intake Total 2250 ml Balance 2250 ml Tube Feeding 1100 ml Other 1150 ml # Voids 5 # Urine Diapers 6 General: Alert, Oriented X3, Cooperative, No Acute Distress HEENT: Atraumatic, PERRLA, EOMI, Mucous Memb Moist/[place] Neck: Other (trach) Lungs: Clear to Auscultation Heart: Regular Rate Abdomen: Normal Bowel Sounds, Soft, No Tenderness, Other (Peg tube in place) Extremities: Other (trace edema) Neuro: Other (Weakness both lower legs left >rt) Results Lab Laboratory Tests 08/03/16 20:31: Glucometer 322H 08/03/16 22:12: Glucometer 310H 08/04/16 05:19: Glucometer 136H 08/04/16 11:18: Glucometer 238H 08/04/16 16:12: Glucometer 315H 08/04/16 21:16: Glucometer 358H 08/05/16 00:19: Glucometer 314H 08/05/16 05:05: Glucometer 112H 08/05/16 11:37: Glucometer 248H 08/05/16 16:19: Glucometer 314H 08/05/16 20:04: Glucometer 275H 08/06/16 05:23: Glucometer 122H 08/06/16 11:29: Glucometer 176H Assessment/Plan Assessment Comminuted left intertrochanteric fracture s/p repair OSH ortho S/P trach for pneumonia and ards-now capped S/P espohageal rupture and repair OSH-with hx of esophageal varices NPO status on tube feeds-MBS to be done with ST-done HX of substance abuse and etoh use=Patient decline Psych consult DM meds adjusted with better control Depression on med Plan Patient discharged to local [facility] today F/U with Physician there and with PT/OT/ST See orders RAHEEM SHAW MD Aug 06, 2016 17:57
--- NOTE | 2016-08-07 12:44 | Occupational Ther Daily Note ---
OT Current Status-Daily Note Subjective Late note for 08/03/16 therapy session. Pt alert, sitting in recliner. Pt agree to therapy. No c/o pain at this time. Mental Status/Objective Patient Orientation: Person, Place, Time, Situation Functional [place] Measure 0=Not Assessed/NA 4=Minimal Assistance 1=Total Assistance 5=Supervision or Setup 2=Maximal Assistance 6=Modified [place] 3=Moderate Assistance 7=Complete [place] ADL-Treatment Functional [place] Measure 0=Not Assessed/NA 4=Minimal Assistance 1=Total Assistance 5=Supervision or Setup 2=Maximal Assistance 6=Modified [place] 3=Moderate Assistance 7=Complete IndependenceIRFPAI Quality Coding Scale 6 Independent with activity with or without an assistive device 5 Patient requires set up or clean up by helper. Patient completes activity by themselves 4 Supervision or touching assist (CGA). [place] provide cues , steadying assist 3 The helper provides less than half the effort to complete the activity 2 The helper provides more than half the effort to complete the activity 1 Dependent. The helper does all the effort to complete an activity 7 Patient refused to complete or attempt activity 9 The patient did not perform the activity before the current illness or injury 88 Not attempted due to Medical conditions or safety concerns Other Treatment Pt ambulated into bathroom to complete toileting transfer and toileting with SBA. Then ambulated out of room to [facility] area to complete UE gross and fine motor exercises. With 1# wt attached to pt's wrists, pt was able to complete AROM against gravity while reaching, grasping and releasing objects in designated area. Pt was able to sustain bicep curl with 1# wt against gravity for 1-2 min then extend UE. Pt demonstrated good ability with fine motor skills for dexterity and coordination that promotes skills for daily functional tasks. After therapy, pt sitting in recliner with call light/phone in reach. All needs met in room. OT Short Term Goals Short Term Goals Time Frame: Jul 20, 2016 Lower Body Dressing(FIM): 5 (met-08/02/16) Transfers (B,C,W/C) (FIM): 4 (met 08/01/16) Toilet/Commode Transfer(FIM): 4 (met-08/02/16) Additional Short Term Goals: 2-Verbalize Understanding, 3-ImproveStrength/Tavares 1=Demonstrate adherence to instructed precautions during ADL tasks. 2=Patient will verbalize/demonstrate understanding of assistive devices/ modifications for ADL. 3=Patient will improve strength/tolerance for activity to enable patient to perform ADL's. OT Halfway Goals Bobbin Presser Goals Time Frame: Aug 09, 2016 Eating (FIM): 5 (not met) Eating (QC): 5 (not met) Groomin (not met) Oral Hygiene (QC): 6 (not met) Bathing(FIM): 5 (met-08/02/16) Shower/Bathe Self (QC): 5 (not met) Upper Body Dressing(FIM): 6 (not met) Upper Body Dressing (QC): 6 (not met) Lower Body Dressing(FIM): 6 (not met) Lower Body Dressing (QC): 6 (not met) On/Off Footwear (QC): 6 (not met) Toileting(FIM): 6 (not met) Toileting Hygiene (QC): 6 (not met) Toilet/Commode Transfer(FIM): 6 (not met) Toilet/Commode Transfer (QC): 6 (not met) Shower Transfer(FIM): 6 (not met) Comprehension(FIM): 6 (NOT MET) Expression (FIM): 6 (MET) Social Interaction(FIM): 6 (NOT MET) Problem Solving(FIM): 6 (NOT MET) Memory(FIM): 6 (NOT MET) Improve bilat UE strength to 5/5 to help with transfers and ADLs Additional Goals: 2-Verbalize Understanding, 3-ImproveStrength/Tavares 1=Demonstrate adherence to instructed precautions during ADL tasks. 2=Patient will verbalize/demonstrate understanding of assistive devices/ modifications for ADL. 3=Patient will improve strength/tolerance for activity to enable patient to perform ADL's. OT Education/Plan Problem List/Assessment Pt would benefit from skilled OT to increase her independence in basic self care to allow her to return to son's home and decrease caregiver bruden Discharge Recommendations Plan/Recommendations: Continue POC Treatment Plan/Plan of Care Patient would benefit from OT for education, treatment and training to promote independence in ADL's, mobility, safety and/or upper extremity function for ADL' s. Plan of Care: ADL Retraining, Caregiver Training, Functional Mobility, Group Exercise/Act as Ind (education, exercise, activity tolerance, functional activities, safety), UE Funct Exercise/Act, UE Neuromus Re-Ed/Coord Treatment Duration: Aug 09, 2016 Visits Per Week: 10-11 Minutes/Day (M-F): 75-90 Minutes/Day (Sat/Marcano): PRN Agreement: Yes Rehab Potential: Fair Time/GCodes Start Time: 11:30 Stop Time: 12:00 Total Time Billed (hr/min): 30 Billed Treatment Time 1 visit-EX 2 (30 min) DALIA ENGLE Aug 07, 2016 12:44
--- NOTE | 2016-08-07 14:56 | Physical Therapy Daily Note ---
PT Daily Note-Current Subjective This note is a late entry for treatment rendered 08/04/16. pt in bed, very sleepy upon therapist arrival. Pt agreed to therapy after some discussion as to the importance of exercise in achieving her her goals. Transfers Functional [place] Measure 0=Not Assessed/NA 4=Minimal Assistance 1=Total Assistance 5=Supervision or Setup 2=Maximal Assistance 6=Modified [place] 3=Moderate Assistance 7=Complete IndependenceIRFPAI Quality Coding Scale 6 Independent with activity with or without an assistive device 5 Patient requires set up or clean up by helper. Patient completes activity by themselves 4 Supervision or touching assist (CGA). [place] provide cues , steadying assist 3 The helper provides less than half the effort to complete the activity 2 The helper provides more than half the effort to complete the activity 1 Dependent. The helper does all the effort to complete an activity 7 Patient refused to complete or attempt activity 9 The patient did not perform the activity before the current illness or injury 88 Not attempted due to Medical conditions or safety concerns Transfers (B, C, W/C) (FIM): 4 Scootin Rollin Roll Left to Right (QC): 5 Supine to/from Sit: 6 Sit to/from Stand: 5 Sit to Lying (QC): 5 Sit to Stand (QC): 5 Chair/Gsx-xx-Lelzb Xfer(QC): 4 Bed to/from Chair: 4 Pt impulsive during transfers. Supervision is warranted to ensure safety. Gait Training Does the Patient Walk?: Yes Gait (FIM): 4 Distance (FIM): 3=150 ft Distance: 200 Walk 10 feet (QC): 5 Walk 50 ft with 2 Turns(QC): 5 Walk 150 ft (QC): 5 Walking 10ft/uneven surface-QC: 5 Gait Level of Assist: 4 Gait Persons Needed: 1 Gait Assistive Device: FWW Pt had one loss of balance episode when in the room. She was walking toward the bed and became distracted by a discussion with the nurse. Min physical assist was required to correct balance and prevent a fall. Stair Training Stair Training: Handrails/: 2 handrails Stairs (FIM): 2 #of Steps: 5 1 Step (curb) (QC): 4 Level of Assist: 4 Pt had one loss of balance when descending the stairs. She caugjht her toe on a step and required minimal assist to recover balance. Assessment Pt is gaining strength but continues to have safety issues due to lack of LE strength and impulsive nature. She will benefit from safety education and continued functional training. PT Short Term Goals Short Term Goals Time Frame: Jul 26, 2016 Transfers (B,C,W/C) (FIM): 4 (met 08/01/16) Gait (FIM): 4 (met 08/01/16) Distance (FIM): 3=150 ft Gait Assistive Device: FWW Wheelchair Distance: 80' Stairs (FIM): 2 # of Steps: 4 Stairs Level of Assist: 4 PT Correction Goals Correction Goals PT Client Experience Administrator Goals Time Frame: Aug 09, 2016 Transfers (B,C,W/C) (FIM): 6 (met 08/06/16) Sit to Lying (QC): 6 (met) Lying-Sitting on Side/Bed(QC): 6 (met) Sit to Stand (QC): 6 Rollin Roll Left to Right (QC): 6 (met) Chair/Why-ax-Rrvgu Xfer(QC): 6 Car Transfer (QC): 5 Does the Patient Walk: Yes Gait (FIM): 6 (unmet; remains at a 5) Gait distance (FIM): 3=150 ft Walk 10 feet (QC): 6 Walk 10ft-Uneven Surface(QC): 6 Walk 50ft with 2 Turns (QC): 6 Walk 150 ft (QC): 6 Gait Level of Assist: 6 Gait Assistive Device: FWW Stairs (FIM): 5 (unmet; remains at a 2) # of Steps: 8 1 Step (curb) (QC): 5 4 Steps (QC): 5 12 Steps (QC): 88 Stairs Level Of Assist: 5 Picking up an Object (QC): 5 PT Plan Treatment/Plan Treatment Plan: Continue Plan of Care Treatment Plan: Bed Mobility, Education, Functional Activity Tavares, Functional Strength, Group Therapy (socialization, education), Gait, Safety, Therapeutic Exercise, Transfers Treatment Duration: Aug 09, 2016 Visits Per Week: 10-15 Minutes/Day (M-F): 60-90 Minutes/Day (Sat/Marcano): prn Time/GCodes Time In: 1110 Time Out: 1135 Total Billed Treatment Time: 20 Total Billed Treatment visit, gait 20 min ALEXANDER MARTÍNEZ PT Aug 07, 2016 14:56
--- NOTE | 2016-08-07 15:33 | Therapy Team Discharge Summary ---
Therapy Discharge Summary Discharge Recommendations Date of Discharge Aug 06, 2016 at 16:39 Therapy D/C Recommendations: Long Term (TCU/NH) Physical Therapy Patient came to rehab for left hip fracture, ARDS, ARF. Upon admission patient performed bed mobility with mod to max assist, transfers with max assist, only able to take a few sidesteps with mod to max assist, and was not able to perform stairs or propel a wheelchair. Patient has been performing bed mobility and transfer training, balance and endurance training, functional strengthening, stair training, gait training, education. Patient has made fair progress but has not met any of her chcf goals except for her bed mobility. Now, patient performs bed mobility with mod I, transfers with SBA, ambulates 150' with a rolling walker with SBA (including 10' over an uneven surface like carpet and 50' with at least 2 turns of 90 degrees, and can go up and down 4 steps using 2 handrails with CGA. Patient has been discharged from this facility and will be discharged from PT at this time. PT Ripening Room Hand Goals Custodial Goals PT Custodial Goals Time Frame: Aug 09, 2016 Transfers (B,C,W/C) (FIM): 6 (met 08/06/16) Roll Left to Right (QC): 6 (met) Sit to Lying (QC): 6 (met) Lying-Sitting on Side/Bed(QC): 6 (met) Sit to Stand (QC): 6 Chair/Kho-ek-Tldti Xfer(QC): 6 Car Transfer (QC): 5 Does the Patient Walk: Yes Gait (FIM): 6 (unmet; remains at a 5) Gait distance (FIM): 3=150 ft Walk 10 feet (QC): 6 Walk 10ft-Uneven Surface(QC): 6 Walk 50ft with 2 Turns (QC): 6 Walk 150 ft (QC): 6 Gait Level of Assist: 6 Gait Assistive Device: FWW Stairs (FIM): 5 (unmet; remains at a 2) # of Steps: 8 1 Step (curb) (QC): 5 4 Steps (QC): 5 12 Steps (QC): 88 Stairs Level Of Assist: 5 Picking up an Object (QC): 5 OT Custodial Goals Custodial Goals Time Frame: Aug 09, 2016 Eating (FIM): 5 (not met) Eating (QC): 5 (not met) Oral Hygiene (QC): 6 (not met) Grooming(FIM): 6 (not met) Bathing(FIM): 5 (met-08/02/16) Shower/Bathe Self (QC): 5 (not met) Upper Body Dressing(FIM): 6 (not met) Upper Body Dressing (QC): 6 (not met) Lower Body Dressing(FIM): 6 (not met) Lower Body Dressing (QC): 6 (not met) On/Off Footwear (QC): 6 (not met) Toileting(FIM): 6 (not met) Toileting Hygiene (QC): 6 (not met) Toilet/Commode Transfer(FIM): 6 (not met) Toilet/Commode Transfer (QC): 6 (not met) Shower Transfer(FIM): 6 (not met) Comprehension(FIM): 6 (NOT MET) Expression (FIM): 6 (MET) Social Interaction(FIM): 6 (NOT MET) Problem Solving(FIM): 6 (NOT MET) Memory(FIM): 6 (NOT MET) Improve bilat UE strength to 5/5 to help with transfers and ADLs Additional Goals: 2-Verbalize Understanding, 3-ImproveStrength/Tavares 1=Demonstrate adherence to instructed precautions during ADL tasks. 2=Patient will verbalize/demonstrate understanding of assistive devices/ modifications for ADL. 3=Patient will improve strength/tolerance for activity to enable patient to perform ADL's. Speech Custodial Goals Custodial Goals 1. The patient will tolerate the least restrictive diet without signs/symptoms of aspiration or laryngeal penetration. 2. The patient will demonstrate reduced laryngeal tension for increase use of audible voice. Time Frame: Eight Weeks Comprehension: 6 (NOT MET) Expression: 6 (MET) Social Interaction: 6 (NOT MET) Problem Solvin (NOT MET) Memory: 6 (NOT MET) JOSEE SPARKS PT Aug 07, 2016 15:33
--- NOTE | 2016-08-08 08:44 | Behavioral Health Consult ---
Consult- Consult CPT Code: 33344 Psychodiagnostic Examination Date of Service: 07/31/16 Start Time: 1405 Stop Time: 1455 Chief Complaint: long hospitalization Referral: Samantha Jin is a 40-year-old, , female referred by Dr. Youngblood for a clinical diagnostic assessment. Information for this evaluation was gathered from self-report, clinical observation, and available medical records. Presenting Problem: The presenting clinical problem is long hospitalization. Duration of the current problem was reported as approximately 3 months. The primary clinical theme and problem discussed during the appointment was complicated hospitalization for esophageal perforation associated with sepsis. According to records, Samantha was hospitalized to [facility] in [place] for the current occurrence which began on 04/25/2016. During her rehabilitation at that facility she fell during physical therapy and sustained a left hip fracture with IM nailing. She was transferred to [facility] inpatient rehabilitation unit on 07/12/16. Samantha has had slow progress with therapy and it is believed that her emotions may be impacting her treatment. In addition to her medical problems, her while visiting her. She apparently could not attend the because she was on ventilation following respiratory failure. According to records, Samantha has history of prior psychiatric treatment, drug and alcohol use, and possible suicidal ideation. Shaista family is only minimally involved and there is question about discharge planning. Samantha was very guarded with this provider regarding her emotions and discharge plans. During the interview, she stated that she had planned on leaving today and was only working out a ride with her son. She stated that she wants to go outside and is tired of being hospitalized. We talked about the irrational nature of her plans, especially given that she was still on a trach and PEG feeding. She has been noncompliant with managing her sugar levels which is important given her diabetes since childhood. A consultation with social organization professor revealed that Samantha seems to have given up hope and has been much more depressed. Samantha reported that prior to hospitalization she was prescribed Celexa 40 mg and Xanax 0.5 mg twice a day. She denied currently feeling any more depressed than usual, but also stated that she didnt want to talk about her spouse or any other emotions. She stated that she has been perimenopausal and feels that she has hot flashes as a result of this. She denied feeling hopeless and stated I have a life to live. There was no report or evidence of paranoid ideation, obsessions, compulsions, hallucinations, delusions, decreased need for sleep, pressured speech, hyperactivity, anger, or social withdrawal. Observations/Mental Status: Samantha was seen at [facility] and was alone. Overall appearance was disheveled and she appeared much older than her stated age. Samantha appeared to be a poor historian secondary to guardedness. Observed gait and gross motor movements indicated no clinically significant difficulties. In regards to pain, no problems were reported during the interview , she is prescribed Lortab for pain. Shaista general approach to the evaluation lacked interest and motivation. She refused to talk about some issues and asked this provider to leave prior to the completion of the interview. Orientation was intact for person, place, time, and situation. Samantha evidenced fair understanding of the reason for the appointment. Shaista in-session behavior lacked interest and motivation. The predominant mood was anxious with congruent affect. Immediate attention and concentration was grossly intact. Memory functioning appeared to be intact. Level of intellectual functioning compared to same age peers was unable to be adequately assessed. Thought processes were found to be generally logical, coherent and goal directed. Thought content was marked by anxieties. Psychomotor retardation was observed. Tone of voice was soft. Expressive speech was marked by vague, unelaborated responses. Eye contact was fair. Insight was poor. Overall, style of interacting during the appointment was appropriate and motivated. Current/Previous Mental Health Treatment: Past psychiatric history was reported as medication management of depression and anxiety. Samantha also reported that she was hospitalized for suicidal ideation following the of her grandmother. She stated that she was very close to her grandmother and this was a difficult time for her. She denied actually acting out on the suicidal feelings at the time. History of self or other harm was denied. Current destructive behavior patterns: none indicated or reported. Samantha did not discuss history of physical, sexual, or emotional abuse. Disturbance in sleep patterns were indicated as unremarkable. Family psychiatric history was not assessed. Medical History: Medical conditions were reported as childhood onset insulin- dependent diabetes, hyperlipidemia and hypertension. Surgical history was reported as cyst removal. Developmental history was not assessed. Sensory motor problems were not assessed. Samantha did not report history of brain injury or seizure disorder. Current medications: celexa 40 mg, ativan 0.5 mg Q4 hr. Drug allergies: no known drug allergies. Current physician is unknown. Relevant family medical history was not reported. Recreational Drug Usage: Substance abuse history was reported in records as alcohol and polysubstance abuse. But this information was not obtained during this providers interview. Family history of alcohol or drug abuse was reported as unknown. Educational and Vocational Histories: Current level of formal education is unknown. History of learning problems: not assessed. School-based remedial education services: not assessed. In-school behavior problems: not assessed. Current vocational status: unemployed. Vocational history or other skills: Unknown. Legal History: Legal history is unknown. Family and Social Histories: Samantha currently lives with her 19-year-old son in [place]. As noted, her spouse of 25 years during her hospitalization. She stated that they have been since she was 15 years old. Samantha was unable to recite the date of his , but according to staff it was approximately one week before her admission to [facility]. The patient reported that she was raised in [place] and her mother and sister also live in the area. She has a 22-year-old son who lives in [place]. She was reportedly raised by her grandparents. She did not talk about other social activities or support. Ability to care for oneself: uses a walker and gait belt for ambulation , feeding via PEG tube. Hobbies and recreational activities were not reported. However, she expressed interest in being outside. Summary of Assessment Information/Prognosis: Samantha is a 40-year-old female with history of depression and anxiety. She is experiencing significant exacerbation of her symptoms following a complicated hospitalization and of her spouse. On presentation, she appears somewhat calm, but when talking about emotional topics, she becomes anxious, shuts down, and states that she is experiencing hot flashes. The patient denies any history of panic disorder, but it is possible that she could be experiencing panic attacks during this time and is just unable to discuss her symptoms. She has very poor insight and appears to have a desire to discharge from the hospital despite having adequate follow-up care. The priority at this time should be improving her physical state. It is recommended that staff avoid discussing the of her spouse or other emotional topics as this appears to lead to her shutting down. It is recommended that she be referred to a therapist who can help her process this as she is discharged. It may be worth exploring placing her back on Xanax 0.5 mg twice a day as this was a medication for her prior to admission. This may allow better management of the anxiety so that she can participate in rehabilitation. It is also recommended that she be allowed to engage in physical therapy by walking outside as she expresses feeling somewhat bound in the hospital. Regarding the question of giving up, Samantha denies suicidal ideation or prior suicidal acts and indicates that her family is a motivator. Following current assessment, presenting problem and symptoms appear consistent with a preliminary diagnosis of F33.1 Major Depressive Disorder, moderate, recurrent. Current emotional symptoms are of moderate intensity. Overall, prognosis is estimated to be guarded. Diagnostic Impressions (ICD-10): F33.1 Major Depressive Disorder, moderate, recurrent R/O Panic Disorder R/O Substance Abuse DIAZ ANGULO PHD Aug 08, 2016 08:44
--- NOTE | 2016-09-19 12:34 | DISCHARGE SUMMARY ---
DATE OF ADMISSION: 07/12/2016 DATE OF DISCHARGE: 08/06/2016 HISTORY OF PRESENT ILLNESS: The patient is a 40-year-old female, recent who lives in [place], [place] who was admitted to an outside hospital in [place] due to esophageal perforation associated with sepsis with various procedures. She is currently n.p.o. and on tube feeds and has a trach. Tracheostomy was done on 05/22/2015 for ongoing treatment of ARDS. The patient was progressing with therapies, until she fell on the 09 of July and sustained a left hip fracture at outside facility. She is status post IM nailing with orthopedics. Prior to this illness, which began in April 2016, it is reported that the patient lives with her adult children but was independent for ADLs, mobility skills. Her spouse apparently during her illness while hospitalized at outside hospital in [place]. The plan is for her to go home with her daughter. The patient was followed by hospitalist service, GI, orthopedics and general surgery at outside hospital. She currently requires assistance for ADLs and mobility skills. She is dependent for tube feeds, quite debilitated. Communication is impaired due to trach. H\T\H on 07/11 was 9.2/30.3, platelet count 227,000, WBC count 7.3, albumin 2.9, calcium 8.8. She was treated for pneumonia as well with empyema while at the outside hospital. She was followed by infectious disease as well and orthopedics. PAST MEDICAL HISTORY: 1. Diabetes mellitus. 2. Upper GI bleed. 3. Polydrug abuse including methamphetamine. 4. Hyperlipidemia. 5. Depression. 6. Prior suicide attempt. 7. Cyst removal. She is on Lovenox subcutaneous for DVT prophylaxis as well as insulin Levemir and sliding scale insulin regimen and lorazepam p.r.n. for anxiety. MEDICAL COURSE: The patient was followed by Dr. Youngblood and Dr. Winters while on rehab unit. She was counseled by Dr. Rose, psychology services. She was followed by speech therapy with a modified barium swallow revealing aspiration with liquids and solids and she remains n.p.o. she continues on tube feeds. She was followed by Dr. Ayala pulmonology and she was changed to uncuffed fenestrated tracheostomy. Respiratory therapy assisted with this. O2 sats were monitored. She was afebrile during her stay. Blood pressure on 08/06 was 104/62, respirations 18, pulse 81, OT, O2 sat 99% with trach collar flowing. CBC on 07/20 showed improvement of hemoglobin at 10.7 from 9.8 on 07/13. WBC count 8.5. Hematocrit 33, platelet count 472,000. Accu-Cheks from 211 to 08/06 varied between 122 and 314. Chemistry on 07/26 revealed normal electrolytes, BUN creatinine was low at 0.58, normal liver function tests, normal calcium. Glucose was 94. Chest x-ray on 07/13 revealed mild pulmonary vascular congestion right perihilar subsegmental atelectasis. The patient was followed with Dr. Ayala, respiratory treatments provided Her hemoglobin A1c on 07/13 was 6.0 REHABILITATION COURSE: She was by PT, OT, speech. OT notes upon admission, she needed mod assist for transfers, lower body dressing, toileting, and toilet transfers. Set up to supervision with grooming, bathing, upper body dressing, was n.p.o. for eating. She has PEG tube independent for tube feedings. By discharge she was modified independent with grooming. Set up for bathing, upper body dressing, toileting, and toilet and shower transfers and n.p.o. for eating. She used a front wheel walker, shower bench, grab bars, hand-held shower. She was somewhat impulsive at times which limited her independence due to decreased safety. PT notes upon admission, the patient performed bed mobility. Mod to max assist transfers. Max assist only able to take a few steps with mod to max assist and was not able to perform stairs or propel a wheelchair. Upon discharge she is modified independent with bed mobility, standby assist for transfers. Standby assist for ambulation 150 feet with a wheeled walker and could go up and down 4 steps using 2 handrails with contact guard. Speech therapy notes that the patient arrived with a PEG tube and tracheostomy tube and had some difficulty with communication and was n.p.o. Throughout the patient's stay, skilled speech therapy focused on dysphagia intervention and strength and laryngeal pharyngeal on base of tongue musculature. The patient participated in a video swallow which demonstrated aspiration of honey thick liquids. Therefore the patient remained n.p.o. the patient's therapy was influenced by reduced participation motivation for improvement and thus did not meet all swallowing goals. However, the patient did demonstrate mild improvement with independence supervised exercises, and communication improved with adjustment of change out of trach. The patient still required some assistance and would have been difficult for family to provide. All of this due to insurance issues and their own capabilities. clearing tub worker assisted patient with placement at a local custodial with follow-up orders for therapy there. DISCHARGE INSTRUCTIONS: She is discharged to local alf facility. Continue with tube feeds and n.p.o. status, PT, OT, speech therapy to eval and treat. Follow-up with custodial physician. DISCHARGE MEDICATIONS: 1. Dulcolax 10 mg per rectum daily p.r.n. constipation. 2. Citalopram 40 mg per PEG daily. 3. Lortab 7.5/325, 1 tablet per PEG 4 hours p.r.n. moderate pain. 4. Levemir insulin 22 units subcutaneous b.i.d. 5. Humalog R insulin subcutaneous q.i.d. before meals and at bedtime. 6. Albuterol DuoNeb treatments q.2 hours p.r.n. shortness of breath and q.i.d. 7. Milk of magnesia/30 mL per PEG daily p.r.n. constipation. 8. ASA 81 mg per PEG daily. 9. Coreg 12.5 mg per PEG b.i.d. The patient completed a course of nystatin. Her incision site was healing well at the hip DISCHARGE DIAGNOSES: 1. Rehabilitation ambulatory dysfunction secondary to fall with left comminuted intratrochanteric hip fracture, status post nailing, outside facility, improving. 2. Esophageal ulcer perforation. 3. Esophageal varices. 4. Sepsis, treated. 5. Pneumonia, treated. 6. Empyema treated. 7. ARDS, treated. 8. Status post tracheostomy. 9. Diabetes mellitus, controlled on medication. 10. Anxiety, controlled with medication. 11. Tobaccoism, currently abstaining. 12. Depression, on medications. 13. Meth abuse abstaining. 14. Hypertension, controlled with medication. 15. Dysphagia with n.p.o. status, status post PEG tube placement at an outside facility on tube feeds 16. Postoperative anemia, improving. 17. Hypoalbuminemia, serum albumin 2.9 on 07/13 improved to 3.5, 07/26 CONDITION AT DISCHARGE: Improved and stable. PROGNOSIS: Rehab prognosis appears good for continued improvement with general mobility and ADLs communication skills. Hopefully her swallow we will continue to improve Job ID: [id number] Dictated Date: 09/18/2016 15:31:47 Environmental Engineering Professor Date: 09/19/2016 12:08:37/buddy
== END 2016-08-06 16:39 | DRG 560 ==
LOC: EDSEX 15:14
PROVIDERS: ADMIT Physical Medicine & Rehabilitation; ATTEND Physical Medicine & Rehabilitation
DX: S72.142D Displaced intertrochanteric fracture of left femur, subsequent encounter for closed fracture with routine healing (principal); Z93.0 Tracheostomy status; I85.00 Esophageal varices without bleeding; E11.9 Type 2 diabetes mellitus without complications; F41.9 Anxiety disorder, unspecified; F17.210 Nicotine dependence, cigarettes, uncomplicated; F32.9 Major depressive disorder, single episode, unspecified; F15.10 Other stimulant abuse, uncomplicated; I10 Essential (primary) hypertension; R13.10 Dysphagia, unspecified; W19.XXXD Unspecified fall, subsequent encounter
CPT/HCPCS: 36415; 71020; 74230; 80048; 80053; 82962; 83036; 85025; 94640; 94760; 94799

== ENCOUNTER → 2016-08-22 | Outpatient (CLI) | payer MEDICAID ==
[~2016-08-22] MED LIST: ASPI-983 PO; BARIUM SUSPENSION 60% (LIQUID EZ PAQUE) 240 ML DOSE PO ONE; BISA10SU12 PR; CARV12.53 PO; CITA20TA7 PEG; CYCL10TA9 PO; DIATRIZOATE MEGLUM/SODIUM 37% 120 ML (GASTROGRAFIN) PO ONE; HYDR-3816 PO; INSU100V SQ; INSU100V3 SC; INSU100V5 SQ; INSU100V6 SQ; IPRA3AMP INH; MAGN400O7 PO; NYST1000 PO
--- OUTSIDE RECORDS SUMMARY | 2016-08-22 09:38 | XMS REPORT | Continuity of Care Document ---
Author Author [facility] Organization [facility] Address Unknown Phone Unavailable Care Team Providers Care Restrike Hammer Operator Name Role Phone Self, Referral PCP Unavailable Source Comments Some departments are not documenting in the electronic medical record. If you do not see the information that you expected, contact Release of Information in the Health Information Management department at [phone] for further assistance in locating additional records.[facility] Active Allergies and Adverse Reactions Not on File Current Medications Not on file Active Problems Not on file Social History Tobacco Use Types Packs/Day Years Used Date Never Assessed Plan of Care Health Maintenance Due Date Last Done Comments Physical (Comprehensive) 1980 Exam Pertussis Vaccine 1984 Tetanus Vaccine 1990 Cervical Cancer Screening 1994 Influenza Vaccine 02/23/2016 Results from Last 3 Months Not on file
--- NOTE | 2016-08-22 14:47 | Diagnostic Imaging Report ---
Barium swallow. INDICATION: History of esophageal perforation. Fluoroscopy time utilized is 1 minute and 12 seconds. TECHNIQUE: The patient ingested orally Gastrografin which was not tolerated due to bad taste and then thin barium was given. The patient could not tolerate standing position due to her condition and was performed in a 45? supine position. Railcar Foreman image demonstrates a tracheostomy tube in place. The esophagus is opacified with long-segment irregular stricture from the mid to the distal esophagus and retraction of the gastroesophageal junction superiorly. This is perhaps related to a lye stricture. Correlate with patient's history. This is longer than expected for typical malignant stricture. There is no complete obstruction, although the lumen distally within this stricture is severely narrowed. The caliber of the distal aspect of the stricture is 6 mm, and the narrowest portion is about 3 cm in length. No evidence of contrast extravasation into the mediastinum. There is suggestion of a gastrostomy tube in place. IMPRESSION: Long irregular stricture in the distal esophagus with severe narrowing of the lumen in the distal 3 cm of the stricture. Correlate with patient's history and endoscopy exams. This is presumably related to a lye stricture etiology although malignancy is not ruled out. Dictated by: Dictated on workstation # [id number]
== END ==
LOC: RAD 09:34
PROVIDERS: ATTEND Thoracic Surgery (Cardiothoracic Vascular Surgery)
DX: K22.2 Esophageal obstruction (principal)
CPT/HCPCS: 74220

== ENCOUNTER → 2016-08-31 | Outpatient (CLI) | payer MEDICAID ==
[~2016-08-31] MED LIST changes: -BARIUM SUSPENSION 60% (LIQUID EZ PAQUE) 240 ML DOSE PO ONE; -DIATRIZOATE MEGLUM/SODIUM 37% 120 ML (GASTROGRAFIN) PO ONE
--- OUTSIDE RECORDS SUMMARY | 2016-08-31 10:14 | XMS REPORT | Continuity of Care Document ---
Author Author [facility] Organization [facility] Address Unknown Phone Unavailable Care Team Providers Care Machine Stapler Name Role Phone Self, Referral PCP Unavailable Source Comments Some departments are not documenting in the electronic medical record. If you do not see the information that you expected, contact Release of Information in the Health Information Management department at [phone] for further assistance in locating additional records.[facility] Active Allergies and Adverse Reactions Not on [...]
--- NOTE | 2016-08-31 16:33 | Diagnostic Imaging Report ---
INDICATION: Chest pain with dyspnea. DISCUSSION: Two views of the chest were obtained, comparison 07/13/2016. Improved aeration of the bilateral lungs as compared to prior exam. No focal consolidation, pleural fluid, or pneumothorax. Tracheostomy appliance is stable. Stable normal heart size. No osseous abnormality. IMPRESSION: 1. Negative chest. Dictated by: Dictated on workstation # [id number]
== END ==
LOC: RAD 10:09
PROVIDERS: ATTEND Family Medicine
DX: J98.8 Other specified respiratory disorders (principal)
CPT/HCPCS: 71020

== ENCOUNTER → 2016-09-21 | Outpatient (CLI) | payer MEDICAID ==
--- NOTE | 2016-09-21 11:50 | Diagnostic Imaging Report ---
EXAMINATION: Modified barium swallow. Indication: Dysphagia Different consistencies of fluid and food was given mixed with barium and swallowing was visualized under fluoroscopy. FLUOROSCOPY TIME: 2 minutes and 9 seconds FINDINGS: There is aspiration seen with thin and thick liquids. IMPRESSION: Aspiration seen. Please refer to speech therapist's report for additional details . Dictated by: Dictated on workstation # [id number]
== END ==
LOC: RAD 10:44
PROVIDERS: ATTEND Family Medicine
DX: R13.10 Dysphagia, unspecified (principal)
CPT/HCPCS: 74230

== ENCOUNTER → 2016-10-31 | Outpatient (CLI) | payer MEDICAID ==
--- NOTE | 2016-10-31 18:13 | Diagnostic Imaging Report ---
INDICATION: Pain after fall. EXAMINATION: Two views were obtained. FINDINGS: The proximal right femur is intact. The hips are unremarkable. There appears to be a mildly comminuted fracture involving the medial aspect of the right obturator ring. IMPRESSION: 1. Mildly comminuted fracture of the medial aspect of the right obturator ring. 2. The right hip is intact. Dictated by: Dictated on workstation # [id number]
--- NOTE | 2016-10-31 18:17 | Diagnostic Imaging Report ---
INDICATION: Fall. Right hip pain. COMPARISON: None. FINDINGS: Frontal view of the pelvis is obtained. There is some cortical irregularity to the medial aspect of the superior pubic ramus on the right, concerning for a nondisplaced subtle fracture. No additional fracture, malalignment, or osseous destructive process is seen. Hip joint spaces appear preserved and the femoral heads appears smooth and round. There are postoperative changes from an old internally fixed proximal left femoral fracture which feels well healed without evidence of complication. IMPRESSION: Suspect a subtle nondisplaced fracture through the medial aspect of the right superior pubic ramus. No additional acute abnormality is suspected. Paged Dr. Winters at 6:16 p.m. 10/31/2016/cb Dictated by: Dictated on workstation # [id number]
--- NOTE | 2016-10-31 18:21 | Diagnostic Imaging Report ---
INDICATION: Pain. FINDINGS: There has been previous open reduction and internal fixation of the left hip fracture with intramedullary karen and compression screws. There is cortical irregularity in the right obturator ring suspect for nondisplaced fracture. IMPRESSION: Findings suspect for nondisplaced fracture of the right obturator ring. Intact left femur. Dictated by: Dictated on workstation # [id number]
--- NOTE | 2016-11-01 10:33 | Physician Query-Final Dx ---
ELTON GRECO 11/01/16 1032: Clinic Account Progress/Dx Physician Query: Please give diagnosis Date of Service October 31, 2016 at 17:09 RANDI RIBEIRO DO 11/02/16 0647: Clinic Account Progress/Dx DIAGNOSIS: Diagnosis Fall with hip and pelvic pain ELTON GRECO November 01, 2016 10:32 RANDI RIBEIRO DO November 02, 2016 06:47
== END ==
LOC: RAD 17:09
PROVIDERS: ATTEND Family Medicine
DX: S79.911A Unspecified injury of right hip, initial encounter (principal); S79.912A Unspecified injury of left hip, initial encounter; S39.93XA Unspecified injury of pelvis, initial encounter; W19.XXXA Unspecified fall, initial encounter; Y99.8 Other external cause status
CPT/HCPCS: 72170; 73502

== ENCOUNTER 2016-12-16 06:13 | Emergency (ER) | payer MEDICAID ==
[~2016-12-16] VITALS: Ht 162.6 cm; Wt 72.6 kg
--- NOTE | 2016-12-16 07:38 | ED GI ---
General Chief Complaint: Catheter/Drain/Tube Problems Stated Complaint: TUBE DISPLACEMENT Nursing Triage Note: PULLED OUT FEEDING TUBE. LOW BLOOD GLUCOSE Sepsis Screen: No Definite Risk Source of Information: Patient, EMS Exam Limitations: No Limitations History of Present Illness Time Seen By Provider: 06:20 Initial Comments This 41 year old woman presents to the emergency room with hypoglycemia. She has chronic dysphasia and uses a PEG tube. This morning she actually removed her PEG tube and has become hypoglycemic. EMS established an IV and gave D50. Fingerstick blood sugar at the [facility] was in the 40s. Blood sugar is now 222. Patient is alert and conversational. The tube had been sutured in. Patient now has some bleeding at the insertion site. Allergies and Home Medications Allergies Coded Allergies: Sulfa (Sulfonamide Antibiotics) (Verified Allergy, Mild, Rash, 07/12/16) Home Medications Aspirin 81 Mg Tablet.dr, 81 MG PO DAILY, (Reported) Bisacodyl 10 Mg Supp.rect, 10 MG RI DAILY PRN for CONSTIPATION, #30 Prescribed by: RAHEEM SHAW on 08/03/16 1228 Carvedilol 12.5 Mg Tablet, 12.5 MG PO BID, (Reported) Citalopram Hydrobromide 20 Mg Tablet, 40 MG PEG DAILY, #30 Prescribed by: RAHEEM SHAW on 08/03/16 1228 Hydrocodone/Acetaminophen 1 Each Tablet, 1 EA PO Q4H PRN for MODERATE PAIN, #60 Prescribed by: RAHEEM SHWA on 08/03/16 1228 Insulin Determir 1,000 Units/10 Ml Soln, 22 UNIT SQ BID, #1 Prescribed by: RAHEEM SHAW on 08/03/16 1228 Insulin Regular, Human 1,000 Units/10 Ml Soln, 0 UNIT SC ACHS, #1 Prescribed by: RAHEEM SHAW on 08/03/16 1228 Ipratropium/Albuterol Sulfate 3 Ml Ampul.neb, 3 ML INH RTQ2H PRN for sob, #1 Prescribed by: RAHEEM SHAW on 08/03/16 1228 Ipratropium/Albuterol Sulfate 3 Ml Ampul.neb, 3 ML INH RTQID, #1 Prescribed by: RAHEEM SHAW on 08/03/16 1228 Magnesium Hydroxide 400 Mg/5 Ml Oral.susp, 30 ML PO DAILY PRN for CONSTIPATION, #1 Prescribed by: RAHEEM SHAW on 08/03/16 1228 Review of Systems Constitutional: see HPI EENTM: No Symptoms Reported Respiratory: No Symptoms Reported Cardiovascular: No Symptoms Reported Gastrointestinal: See HPI Genitourinary: No Symptoms Reported Musculoskeletal: no symptoms reported Skin: see HPI Psychiatric/Neurological: See HPI Endocrine: See HPI Past Sbgyjik-Soxtxj-Qsxdob Hx Patient Social History Alcohol Use: Denies Use Recreational Drug Use: Yes (history of methamphetamine use) Drug of Choice: polydrug abuse, meth Smoking Status: Former Smoker Type Used: Cigarettes 2nd Hand Smoke Exposure: No Recent Foreign Travel: No Contact w/Someone Who Travel: No Recent Infectious Disease Expo: No Recent Hopitalizations: Yes Immunizations Up To Date Tetanus Booster (TDap): Unknown Date of Influenza Vaccine: Jun 24, 2016 Seasonal Allergies Seasonal Allergies: No Surgeries HX Surgeries: Yes Surgeries: Abdominal (PEG tube), Tracheostomy Respiratory Hx Respiratory Disorders: Yes Respiratory Disorders: Pneumonia Cardiovascular Hx Cardiac Disorders: Yes Cardiac Disorders: High Cholesterol, Hypertension Neurological Hx Neurological Disorders: Yes (Dysphagia) Reproductive System : No Genitourinary Hx Genitourinary Disorders: Yes Genitourinary Disorders: Renal Failure, UTI-Chronic Gastrointestinal Hx Gastrointestinal Disorders: Yes Gastrointestinal Disorders: Gastrointestinal Bleed (upper), Esophageal Varices Musculoskeletal Musculoskeletal Disorders: Fractures Endocrine Hx Endocrine Disorders: Yes Endocrine Disorders: Diabetes, Insulin dep HEENT HX ENT Disorders: Yes (Dysphagia and dysarthria from tracheostomy) Hearing Impairment: Denies Cancer Hx Cancer: No Psychosocial Hx Psychiatric Problems: Yes Behavioral Health Disorders: Anxiety, Suicide Attempts, Depression Blood Transfusions Adverse Reaction to a Blood Tr: No Physical Exam Vital Signs VS - Last 72 Hours, by Label 12/16/16 12/16/16 06:20 08:24 Temp 97.6 Pulse 67 67 Resp 18 18 B/P (MAP) 113/49 Pulse Ox 95 97 O2 Delivery Room Air Room Air Capillary Refill : Less Than 3 Seconds General Appearance: WD/WN, no apparent distress HEENT: PERRL/EOMI, normal ENT inspection Respiratory: lungs clear, normal breath sounds, no respiratory distress, no accessory muscle use Cardiovascular: regular rate, rhythm, no edema, no murmur Gastrointestinal: normal bowel sounds, non tender, soft, other (G-tube insertion site with mild blood oozing) Extremities: normal inspection, no pedal edema Neurologic/Psychiatric: no motor/sensory deficits, alert, normal mood/affect, oriented x 3, other (Chronic deficits as above) Skin: normal color, warm/dry, other (See above) Progress/Results/Core Measures Results/Orders Lab Results Laboratory Tests Test 12/16/16 06:19 Range/Units Glucometer 222 H 70-110 MG/DL My Orders Orders - SUJIT WHITAKER MD Accucheck Stat ONCE (12/16/16 06:15) Vital Signs/I&O Vital Sign - Last 12Hours 12/16/16 12/16/16 06:20 08:24 Temp 97.6 Pulse 67 67 Resp 18 18 B/P (MAP) 113/49 Pulse Ox 95 97 O2 Delivery Room Air Room Air Blood Pressure Mean: 70 Point of Care Testing Finger Stick Blood Glucose: 222 Blood Glucose Action Taken: ERP NOTIFIED Progress Note : Progress Note Betadine was applied to the insertion site. The prior G-tube was an adapted when he Nigerien Merida catheter. A 20 Nigerien G-tube was attempted but would not pass. The 18 Nigerien Merida was able to pass. After the tract was found with the Merida catheter, and the 20 Nigerien G-tube was again attempted. We could not get this to pass. The 18 Nigerien Merida was then placed. Stomach contents were aspirated and tube was flushed with normal saline and capped. Bleeding ceased after replacement of the tube. Patient complained of no pain and tolerated the procedure well. Departure Impression Impression: Primary Impression: Feeding tube dysfunction Qualified Codes: T85.598A - Other mechanical complication of other gastrointestinal prosthetic devices, implants and grafts, initial encounter Additional Impression: Hypoglycemia Disposition: 01 HOME, SELF-CARE Condition: Improved Departure-Patient Inst. Decision time for Depature: 07:10 Referrals: RANDI RIBEIRO DO (PCP/Family) Primary Care Physician Patient Instructions: HYPOGLYCEMIA Add. Discharge Instructions: Check blood sugar on arrival to the [facility]. Monitor blood sugars closely throughout the day. You may resume G-tube feedings. Follow-up with a surgeon as soon as possible for evaluation of the G-tube site. Flush G-tube catheter with at least 20 ML water or each feeding. Monitor insertion site for signs of infection. All discharge instructions reviewed with patient and/or family. Voiced understanding. Copy Copies To 1: RANDI RIBEIRO JOSHUA T MD Dec 16, 2016 07:38
[2016-12-16 08:24] VITALS: BP 113/49
--- OUTSIDE RECORDS SUMMARY | 2016-12-17 18:15 | XMS REPORT | Continuity of Care Document ---
Author Author [facility] Organization [facility] Address Unknown Phone Unavailable Care Team Providers Care Superintendent System Operation Name Role Phone Self, Referral PCP Unavailable Source Comments Some departments are not documenting in the electronic medical record. If you do not see the information that you expected, contact Release of Information in the Health Information Management department at [phone] for further assistance in locating additional records.[facility] Active Allergies and Adverse Reactions Not on File Current Medications Not on file Active Problems Not on file Social History Tobacco Use Types Packs/Day Years Used Date Never Assessed Plan of Care Health Maintenance Due Date Last Done Comments Physical (Comprehensive) 1980 Exam Pertussis Vaccine 1984 Tetanus Vaccine 1990 Cervical Cancer Screening 1994 Breast Cancer Screening 2013 Influenza Vaccine 02/22/2017 Results from Last 3 Months Not on file
== END 2016-12-16 08:25 | disposition home or self-care (01) ==
LOC: EDUNIT# 06:13 → ER 06:15
DX: T85.598A Other mechanical complication of other gastrointestinal prosthetic devices, implants and grafts, initial encounter (principal); E11.649 Type 2 diabetes mellitus with hypoglycemia without coma; I10 Essential (primary) hypertension; Z79.4 Long term (current) use of insulin; Z79.82 Long term (current) use of aspirin; Z79.899 Other long term (current) drug therapy; Z87.891 Personal history of nicotine dependence
CPT/HCPCS: 82962; 99283

== ENCOUNTER 2016-12-27 10:22 | Outpatient (RCR) | payer MEDICAID ==
[~2016-12-27 10:22] MED LIST changes: +CARV12.53 PEG; -CARV12.53 PO
[2017-01-14] MEDS ORDERED: ALPR0.254 PEG (10:42)
[2017-01-14] MEDS ORDERED: INSU100I29 SQ (10:42)
[2017-01-14] MEDS ORDERED: NITR-65 PO (10:42)
[2017-01-14] MEDS ORDERED: GUAI600T43 PEG (10:42)
[2017-01-14] MEDS ORDERED: GUAI237L82 PO (10:42)
[2017-01-14] MEDS ORDERED: HYDR-3816 PEG (10:42)
[2017-01-14] MEDS ORDERED: PANT40TA2 PEG (10:42)
[2017-01-14] MEDS ORDERED: POLY119P5 PEG (10:42)
[2017-01-14] MEDS ORDERED: INSU100V3 SQ (10:42)
[2017-01-14] MEDS ORDERED: ACET-93 PO (10:42)
== END 2017-01-29 14:00 | disposition home or self-care (01) ==
PROVIDERS: ATTEND Family Medicine
DX: R13.10 Dysphagia, unspecified (principal)

== ENCOUNTER → 2017-01-11 | Outpatient (CLI) | payer MEDICAID ==
[~2017-01-11] MED LIST changes: +ACET-93 PO; +ALPR0.254 PEG; +GUAI237L82 PO; +GUAI600T43 PEG; +HYDR-3816 PEG; +INSU100I29 SQ; +INSU100V3 SQ; +NITR-65 PO; +PANT40TA2 PEG; +POLY119P5 PEG
== END ==
LOC: PREOP 05:44
PROVIDERS: ATTEND Surgery
DX: Z01.818 Encounter for other preprocedural examination (principal); R13.10 Dysphagia, unspecified

== ENCOUNTER → 2017-01-14 | Day surgery (SDC) | payer MEDICAID ==
[~2017-01-14] VITALS: Ht 157.5 cm; Wt 53.5 kg
[~2017-01-14] MED LIST changes: +HURRICAINE EXT TUBE (BENZOCAINE) ONE; +HURRICAINE EXT TUBE (BENZOCAINE) XX PRN; +MIDAZOLAM 2 MG/2 ML (VERSED) VIAL IVP PRN; +MIDAZOLAM 2 MG/2 ML (VERSED) VIAL ONE; +NS IV 500 ML 500 ML IV ONE; +NS IV 500 ML 500 ML IV PRN; +fentaNYL INJECTION 100 MCG/2 ML AMP IVP PRN; +fentaNYL INJECTION 100 MCG/2 ML AMP ONE
[2017-01-14 10:49] VITALS: BP 126/70
--- NOTE | 2017-01-14 11:39 | Conscious Sedation/ASA ---
Conscious Sedation Pre-Proced Time Reviewed: 11:39 ASA Class: 3 Airway Mallampati Classification: ([place] appropriate class) I. II. III, IV Lungs Heart ASA score ASA 1: a normal healthy patient ASA 2: a patient with a mild systemic disease (mid diabetes, controlled hypertension, obesity ASA 3: a patient with a severe systemic disease that limits activity (angina , COPD, prior Myocardial infarction) ASA 4: a patient with an incapacitating disease that is a constant threat to life (CHF, renal failure) ASA 5: a moribund patient not expected to survive 24 hrs. (ruptured aneurysm) ASA 6: a declared brain patient whose organs are being harvested. For emergent operations, add the letter E after the classification Grade 2 Sedation Plan: Discussed options with patient/fam Note The patient is an appropriate candidate to undergo the planned procedure, sedation, and anesthesia. The patient immediately re-assessed prior to indication. THEO PERALES MD Jan 14, 2017 11:39 am
--- NOTE | 2017-01-14 11:39 | History & Physicial ---
History of Present Illness History of Present Illness Reason for visit/HPI to undergo an upper endoscopy to evaluate dysphagia. History of aspiration in the past Date of Admission Date Seen by Provider: Jan 14, 2017 Time Seen by Provider: 11:37 I consulted on this patient on 01/14/17 11:35 Attending Physician Theo Perales MD Admitting Physician Israel Winters DO Consult Allergies and Home Medications Allergies Coded Allergies: Sulfa (Sulfonamide Antibiotics) (Verified Allergy, Mild, Rash, 07/12/16) Home Medications Acetaminophen 500 Mg Tablet, 1,000 MG PO Q4H PRN for pain/fever, (Reported) Alprazolam 0.25 Mg Tablet, 0.25 MG PEG BID PRN for ANXIETY, (Reported) Carvedilol 12.5 Mg Tablet, 12.5 MG PEG BID, (Reported) Guaifenesin 600 Mg Tab.er.12h, 600 MG PEG BID, (Reported) Guaifenesin/Dextromethorphan 237 Ml Liquid, 10 ML PO Q4H PRN for COUGH, ( Reported) Hydrocodone/Acetaminophen 1 Each Tablet, 1 EACH PEG Q12H PRN for PAIN-MILD TO MODERATE, (Reported) Insulin Detemir 100 Unit/1 Ml Insuln.pen, 16 UNIT SQ BID, (Reported) Insulin Regular, Human 1,000 Units/10 Ml Soln, 4 UNITS SQ QIDACHS, (Reported) Insulin Regular, Human 1,000 Units/10 Ml Soln, 0 SQ QIDACHS, (Reported) sliding scale Nitrofurantoin Monohyd/M-Cryst 100 Mg Capsule, 100 MG PO BID, (Reported) Pantoprazole Sodium 40 Mg Tablet.dr, 40 MG PEG DAILY, (Reported) Polyethylene Glycol 3350 119 Gm Powder, 17 GM PEG DAILY PRN for CONSTIPATION- 1ST LINE, (Reported) Past Tvrhoab-Haryda-Nmgbop Hx Patient Social History Employed/Student: retired Alcohol Use: Denies Use Recreational Drug Use: No Drug of Choice: polydrug abuse, meth Smoking Status: Current Everyday Smoker Type Used: Cigarettes 2nd Hand Smoke Exposure: No Recent Foreign Travel: No Contact w/other who traveled: No Recent Hopitalizations: Yes Recent Infectious Disease Expo: No Immunizations Up To Date Tetanus Booster (TDap): Unknown Date of Influenza Vaccine: Jun 24, 2016 Seasonal Allergies Seasonal Allergies: No Surgeries HX Surgeries: Yes (ovarian cyst removed with ovary, L hip fx, peg tube) Surgeries: Abdominal, Tracheostomy Respiratory Hx Respiratory Disorders: Yes (hx of collapsed lung ) Cardiovascular Hx Cardiovascular Disorders: Yes Cardiac Disorders: High Cholesterol, Hypertension Neurological Hx Neurological Disorders: Yes Neurological Disorders: Seizure Disorder Reproductive System Hx Reproductive Disorders: No Genitourinary Hx Genitourinary Disorders: Yes Genitourinary Disorders: Renal Failure, UTI-Chronic Gastrointestinal Hx Gastrointestinal Disorders: Yes (peg tube) Gastrointestinal Disorders: Gastroesophageal Reflux, Gastrointestinal Bleed, Esophageal Varices Musculoskeletal Hx Musculoskeletal Disorders: Yes (Lt hip fx) Musculoskeletal Disorders: Fractures Endocrine Hx Endocrine Disorders: Yes Endocrine Disorders: Diabetes, Insulin dep HEENT HX ENT Disorders: Yes (Dysphagia and dysarthria from tracheostomy) Hearing Impairment: Denies Cancer Hx Cancer: No Psychosocial Hx Psychiatric Problems: Yes Behavioral Health Disorders: Anxiety, Suicide Attempts, Depression Integumentary HX Skin/Integumentary Disorder: Yes (red heels, coccyx) Blood Transfusions Hx Blood Disorders: No Adverse Reaction to a Blood Tr: No Constitutional: malaise EENTM: no symptoms reported Respiratory: cough Cardiovascular: no symptoms reported Gastrointestinal: dysphagia Genitourinary: no symptoms reported Physical Exam Vital Signs Vital Sign - Last 12Hours 01/14/17 10:49 Temp 97.8 Pulse 75 Resp 16 B/P (MAP) 126/70 Pulse Ox 94 O2 Delivery Room Air Capillary Refill : General Appearance: No Apparent Distress HEENT: Normal ENT Inspection Neck: Normal Inspection Respiratory: Lungs Clear Cardiovascular: Regular Rate, Rhythm Gastrointestinal: Non Tender, Soft Comments PEG tube in place Assessment/Plan Assessment and Plan lady with intermittent dysphagia. Esophageal motility versus stricture. Upper endoscopy first. Problems: THEO PERALES MD Jan 14, 2017 11:39 am
[2017-01-14] MEDS: fentaNYL INJECTION 100 MCG/2 ML AMP IVP PRN ×2 (12:00→12:02)
[2017-01-14] MEDS: MIDAZOLAM 2 MG/2 ML (VERSED) VIAL IVP PRN ×2 (12:03→12:10)
--- NOTE | 2017-01-14 12:25 | Endo Procedure Record ---
Endo Procedure Report Date of Procedure Jan 14, 2017 Surgeon (s) THEO PERALES MD Post Procedure/Op Diagnosis tight stricture of the mid esophagus Procedure Performed upper endoscopy with balloon dilatation of esophageal stricture Description of Procedure Anesthesia Type: Conscious Sedation Specimen(s) collected/removed none Description of the Procedure Indication for procedure: Thiss lady, a resident at a local rehabilitation center, has been found to have an esophageal stricture. She is currently being fed using a PEG tube.an upper endoscopy with an intent to perform balloon dilatation was arranged. Informed consent was obtained after reviewing the procedure in detail Description of procedure: She was placed in left lateral decubitus position and her vital signs were monitored. Conscious sedation was achieved using Versed and fentanyl. The flexible gastroscope was introduced down the esophagus, where a very tight stricture was encountered at 28 cm from the incised the teeth. The scope could not be advanced further. I was able to dilate to 9 mm using aa balloon, but this would require further dilatations. Obviously, the risk of iatrogenic perforation is high and she would be referred to a higher level facility She tolerated the procedure reasonably well and was taken to the nursing area in a stable condition Impression: Tight mid esophageal stricture. Partial dilatation completed. Copies To: RANDI RIBEIRO XAVIER M MD Jan 14, 2017 12:25 pm
--- NOTE | 2017-01-14 12:31 | Discharge Inst-Simple/Standard ---
Discharge Inst-Standard Discharge Medications New, Converted or Re-Newed RX: Other Patient Instructions/Follow Up Plan of Care/Instructions/FU: my office will arrange further procedurewith Dr. Sanket Cruz and contact the facility Activity as Tolerated: Yes Discharge Diet: Liquid Diet THEO PERALES MD Jan 14, 2017 12:31 pm
[2017-01-14 12:45] VITALS: BP 117/75
[2017-01-14 13:15] VITALS: BP 122/74
[2017-01-14 13:20] VITALS: BP 122/74
== END | disposition home or self-care (01) ==
LOC: ENDO 09:42
PROVIDERS: ATTEND Surgery
DX: K22.2 Esophageal obstruction (principal); F17.210 Nicotine dependence, cigarettes, uncomplicated; E78.00 Pure hypercholesterolemia, unspecified; I10 Essential (primary) hypertension; G40.909 Epilepsy, unspecified, not intractable, without status epilepticus; K21.9 Gastro-esophageal reflux disease without esophagitis; F41.9 Anxiety disorder, unspecified; F32.9 Major depressive disorder, single episode, unspecified; Z79.899 Other long term (current) drug therapy
CPT/HCPCS: 82962

== ENCOUNTER 2017-05-07 18:01 | Inpatient (IN) | payer MEDICAID ==
[~2017-05-07] VITALS: Ht 157.5 cm; Wt 55.1 kg
[2017-05-07] VITALS (9 sets, daily range): BP systolic 103–142; BP diastolic 62–85
[~2017-05-07 18:01] MED LIST changes: -HURRICAINE EXT TUBE (BENZOCAINE) ONE; -HURRICAINE EXT TUBE (BENZOCAINE) XX PRN; -MIDAZOLAM 2 MG/2 ML (VERSED) VIAL IVP PRN; -MIDAZOLAM 2 MG/2 ML (VERSED) VIAL ONE; -NS IV 500 ML 500 ML IV ONE; -NS IV 500 ML 500 ML IV PRN; -fentaNYL INJECTION 100 MCG/2 ML AMP IVP PRN; -fentaNYL INJECTION 100 MCG/2 ML AMP ONE
[2017-05-07] MEDS ORDERED: RX-ALBUTEROL NEB 2.5 MG/3 ML PACK #5 IH ONE (18:03)
[2017-05-07] MEDS ORDERED: RT-ALBUTEROL/IPRATROPIUM 3 ML (DUONEB) VIAL ONE (18:03)
[2017-05-07] MEDS ORDERED: RT-ALBUTEROL SULF 2.5 MG/3 ML PRE-MIX VIAL INH STA (18:09)
[2017-05-07] MEDS ORDERED: RT-ALBUTEROL/IPRATROPIUM 3 ML (DUONEB) VIAL INH ONE (18:15)
[2017-05-07] MEDS ORDERED: NS IV 500 ML 500 ML IV ONE (18:21)
[2017-05-07] MEDS ORDERED: NS IV 1000 ML 1,000 ML IV ONE ×2 (18:21→20:03)
[2017-05-07] MEDS ORDERED: PIPERACILLIN SODIUM/TAZOBACTAM 4.5 GM in NS (IVPB) 100 ML IV ONE (18:30)
--- NOTE | 2017-05-07 18:30 | ED Syncope ---
General Chief Complaint: Neurological Problems Stated Complaint: SYNCOPE Source of Information: Patient, EMS, Care Home Records Exam Limitations: Other (PATRICIA MURGUIA) History of Present Illness Time Seen by Provider: 17:55 Initial Comments Patient presents to ER by EMS from [facility]. Staff reports the patient was out smoking a cigarette when she passed out in her wheelchair. She can ambulate with a walker but also uses a wheelchair. She has a history of a tracheostomy secondary to a spontaneous pneumothorax. The tracheostomy is long since healed. Fire reported to EMS that her sats were 70% so put her on a nonrebreather and her blood sugar was 80 but EMS checked her blood sugar twice and both times were 37. They gave her an amp of D50 and her blood sugar was 120 [address] route. The patient complains of mild shortness of breath and productive cough. She has not able to give a very good history however. Patient states that she slumped in her wheelchair and did not hit her head when she fell but she did lose consciousness and does not member everything. She has no pain in her head, bleeding, blurred vision, ear pain, tinnitus, chipped, fractured or painful dentition. (PATRICIA MURGUIA) Allergies and Home Medications Allergies Coded Allergies: Sulfa (Sulfonamide Antibiotics) (Verified Allergy, Mild, Rash, 07/12/16) Home Medications Acetaminophen 500 Mg Tablet, 1,000 MG PO Q4H PRN for pain/fever, (Reported) Alprazolam 0.25 Mg Tablet, 0.25 MG PEG BID PRN for ANXIETY, (Reported) Carvedilol 12.5 Mg Tablet, 12.5 MG PEG BID, (Reported) Guaifenesin 600 Mg Tab.er.12h, 600 MG PEG BID, (Reported) Guaifenesin/Dextromethorphan 237 Ml Liquid, 10 ML PO Q4H PRN for COUGH, ( Reported) Hydrocodone/Acetaminophen 1 Each Tablet, 1 EACH PEG Q12H PRN for PAIN-MILD TO MODERATE, (Reported) Insulin Detemir 100 Unit/1 Ml Insuln.pen, 16 UNIT SQ BID, (Reported) Insulin Regular, Human 1,000 Units/10 Ml Soln, 4 UNITS SQ QIDACHS, (Reported) Insulin Regular, Human 1,000 Units/10 Ml Soln, 0 SQ QIDACHS, (Reported) sliding scale Nitrofurantoin Monohyd/M-Cryst 100 Mg Capsule, 100 MG PO BID, (Reported) Pantoprazole Sodium 40 Mg Tablet.dr, 40 MG PEG DAILY, (Reported) Polyethylene Glycol 3350 119 Gm Powder, 17 GM PEG DAILY PRN for CONSTIPATION- 1ST LINE, (Reported) Constitutional: see HPI (Patient's poor historian and gives a very incomplete review of systems.), No chills, No diaphoresis, No fever, No malaise EENTM: No ear discharge, No hearing loss Respiratory: cough, phlegm, No short of breath, No wheezing Cardiovascular: No chest pain, No Hx of Intervention, No palpitations, syncope , No vascular heart diseas Gastrointestinal: No abdominal pain, No constipation, No diarrhea, No nausea, No vomiting Genitourinary: No discharge, No dysuria, incontinence : No Musculoskeletal: No back pain, No joint pain Skin: No pruritus, No rash (PATRICIA MURGUIA) Past Ptybhrd-Qgndra-Fpgntq Hx Patient Social History Alcohol Use: Denies Use Recreational Drug Use: No Drug of Choice: polydrug abuse, meth Smoking Status: Current Everyday Smoker Type Used: Cigarettes 2nd Hand Smoke Exposure: No Recent Hopitalizations: Yes (PATRICIA MURGUIA) Immunizations Up To Date Tetanus Booster (TDap): Unknown Date of Influenza Vaccine: Jun 24, 2016 (PATRICIA MURGUIA) Seasonal Allergies Seasonal Allergies: No (PATRICIA MURGUIA) Surgeries History of Surgeries: Yes (ovarian cyst removed with ovary, L hip fx, peg tube) Surgeries: Abdominal, Tracheostomy (PATRICIA MURGUIA) Respiratory History of Respiratory Disorde: Yes (hx of collapsed lung ) Respiratory Disorders: Pneumonia (PATRICIA MURGUIA) Cardiovascular History of Cardiac Disorders: Yes Cardiac Disorders: High Cholesterol, Hypertension (PATRICIA UMRGUIA) Neurological History of Neurological Disord: Yes Neurological Disorders: Seizure Disorder (PATRICIA MURGUIA) Reproductive System Hx Reproductive Disorders: No (PATRICIA MURGUIA) Genitourinary History of Genitourinary Disor: Yes (Yeast in urine, UTI, inct) Genitourinary Disorders: Renal Failure, UTI-Chronic (PATRICIA MURGUIA) Gastrointestinal History of Gastrointestinal Di: Yes (peg tube) Gastrointestinal Disorders: Gastroesophageal Reflux, Gastrointestinal Bleed, Esophageal Varices (PATRICIA MURGUIA) Musculoskeletal History of Musculoskeletal Dis: Yes (Lt hip fx) Musculoskeletal Disorders: Fractures (PATRICIA MURGUIA) Endocrine History of Endocrine Disorders: Yes Endocrine Disorders: Diabetes, Insulin dep (PATRICIA MURGUIA) HEENT History of HEENT Disorders: No Hearing Impairment: Denies (PATRICIA MURGUIA) Cancer History of Cancer: No (PATRICIA MURGUIA) Psychosocial History of Psychiatric Problem: Yes Behavioral Health Disorders: Anxiety, Suicide Attempts, Depression (PATRICIA MURGUIA) Integumentary History of Skin or Integumenta: Yes (red heels, coccyx) (PATRICIA MURGUIA) Blood Transfusions History of Blood Disorders: No Adverse Reaction to a Blood Tr: No (PATRICIA MURGUIA) Physical Exam Vital Signs Vital Sign - Last 12Hours (GARRISON HANKS MD) Vital Signs Capillary Refill : (PATRICIA MURGUIA) General Appearance: WD/WN, Mild Distress HEENT: PERRL/EOMI, TMs Normal, Normal ENT Inspection, Pharynx Normal, Other ( No hematoma, facial tenderness, oropharynx looks normal.) Neck: Full Range of Motion, Normal Inspection, Non Tender, Supple Cardiovascular: Regular Rate, Rhythm, No Edema, No JVD, Normal Peripheral Pulses Respiratory: Chest Non Tender, No Accessory Muscle Use, Crackles (Bilateral bases especially right), Decreased Breath Sounds, Respiratory Distress (Mild to moderate), No Wheezing Gastrointestinal: Normal Bowel Sounds, Non Tender, Soft Extremities: Normal Capillary Refill, Normal Inspection, No Pedal Edema Neurologic/Psychiatric: Alert, Oriented x3 Cranial Nerves: Normal Hearing, Normal Speech, PERRL Motor/Sensory: No Motor Deficit, No Sensory Deficit Skin: Normal Color, Warm/Dry (PATRICIA MURGUIA) Focused Exam Evaluation Lactate Level Laboratory Tests 05/07/17 18:13: Lactic Acid Level 0.67 (GARRISON HANKS MD) Lactic Acid Level Laboratory Tests Test 05/07/17 18:13 Lactic Acid Level 0.67 MMOL/L (0.50-2.00) (GARRISON HANKS MD) Lumen: triple Central Line Procedure: betadine prep, sterile drapes applied Position: internal jugular (R) Anesthesia: Lidocaine Volume Anesthetic (ccs): 3 Complications: none Post Position: sutured, good blood return, position confirmed w/ CXR Progress Placed a central line to the right IJ with the assistance of Radha Jung APRN. Placed via ultrasound guidance. Good flash and return. Sutured in place. 2 sticks, no complications. Tolerated procedure well. Post procedure x-ray ordered. (GARRISON HANKS MD) Progress/Results/Core Measures Results/Orders Lab Results Laboratory Tests Test 05/07/17 18:13 05/07/17 18:29 05/07/17 18:45 05/07/17 19:18 Range/Units White Blood Count 7.8 4.3-11.0 10^3/uL Red Blood Count 4.00 L 4.35-5.85 10^6/uL Hemoglobin 11.2 L 11.5-16.0 G/DL Hematocrit 36 35-52 % Mean Corpuscular Volume 90 80-99 FL Mean Corpuscular Hemoglobin 28 25-34 PG Mean Corpuscular Hemoglobin Concent 31 L 32-36 G/DL Red Cell Distribution Width 15.5 H 10.0-14.5 % Platelet Count 528 H 130-400 10^3/uL Mean Platelet Volume 10.1 7.4-10.4 FL Neutrophils (%) (Auto) 69 42-75 % Lymphocytes (%) (Auto) 22 12-44 % Monocytes (%) (Auto) 6 0-12 % Eosinophils (%) (Auto) 3 0-10 % Basophils (%) (Auto) 0 0-10 % Neutrophils # (Auto) 5.4 1.8-7.8 X 10^3 Lymphocytes # (Auto) 1.7 1.0-4.0 X 10^3 Monocytes # (Auto) 0.5 0.0-1.0 X 10^3 Eosinophils # (Auto) 0.2 0.0-0.3 10^3/uL Basophils # (Auto) 0.0 0.0-0.1 10^3/uL Prothrombin Time 14.0 12.2-14.7 SEC INR Comment 1.1 0.8-1.4 Activated Partial Thromboplast Time 30 24-35 SEC Sodium Level 139 135-145 MMOL/L Potassium Level 3.7 3.6-5.0 MMOL/L Chloride Level 100 98-107 MMOL/L Carbon Dioxide Level 30 21-32 MMOL/L Anion Gap 9 5-14 MMOL/L Blood Urea Nitrogen 14 7-18 MG/DL Creatinine 0.58 L 0.60-1.30 MG/DL Estimat Glomerular Filtration Rate > 60 BUN/Creatinine Ratio 24 Glucose Level 262 H 70-105 MG/DL Lactic Acid Level 0.67 0.50-2.00 MMOL/L Calcium Level 8.6 8.5-10.1 MG/DL Magnesium Level 1.6 L 1.8-2.4 MG/DL Total Bilirubin 0.2 0.1-1.0 MG/DL Aspartate Amino Transf (AST/SGOT) 12 5-34 U/L Alanine Aminotransferase (ALT/SGPT) 9 0-55 U/L Alkaline Phosphatase 121 40-136 U/L Troponin I < 0.30 <0.30 NG/ML Total Protein 7.2 6.4-8.2 GM/DL Albumin 3.0 L 3.2-4.5 GM/DL Glucometer 168 H 70-110 MG/DL Blood Gas Puncture Site LEFT BRACHIAL Blood Gas Patient Temperature 96.5 Arterial Blood pH 7.42 7.37-7.43 Arterial Blood Partial Pressure CO2 48 H 35-45 MMHG Arterial Blood Partial Pressure O2 57 L 79-93 MMHG Arterial Blood HCO3 31 H 23-27 MMOL/L Arterial Blood Total CO2 32.5 H 21.0-31.0 MMOL/L Arterial Blood Oxygen Saturation 91 L 94-100 % Arterial Blood Base Excess 6.3 H -2.5-2.5 MMOL/L Elie Test NA Blood Gas Ventilator Setting NO Blood Gas Inspired Oxygen 10L Urine Color YELLOW Urine Clarity VERY CLOUDY H Urine pH 6 5-9 Urine Specific [place] 1.020 1.016-1.022 Urine Protein 2+ H NEGATIVE Urine Glucose (UA) 1+ H NEGATIVE Urine Ketones NEGATIVE NEGATIVE Urine Nitrite NEGATIVE NEGATIVE Urine Bilirubin NEGATIVE NEGATIVE Urine Urobilinogen 1 NORMAL MG/DL Urine Leukocyte Esterase 3+ H NEGATIVE Urine RBC (Auto) 3+ H NEGATIVE Urine RBC 5-10 H /HPF Urine WBC 10-25 H /HPF Urine Squamous Epithelial Cells .50 /HPF Urine Crystals NONE /LPF Urine Bacteria LARGE H /HPF Urine Casts NONE /LPF Urine Mucus NEGATIVE /LPF Urine Yeast LARGE H /HPF Urine Culture Indicated YES (GARRISON HANKS MD) My Orders Orders - GARRISON HANKS MD Albuterol Pre-Mix Nebs (Rt) (Proventil P (05/07/17 18:09) Albuterol/Ipra Inhalation Soln (Duoneb I (05/07/17 18:15) Svn Sm Volume Nebulizer Rt-Rfs (05/07/17 18:09) Svn Sm Volume Nebulizer Rt-Rfs (05/07/17 18:09) (GARRISON HANKS MD) Medications Given in ED Current Medications Medications Dose Ordered Sig/Juana Route Start Time Stop Time Status Last Admin Dose Admin Piperacillin Sod/ Tazobactam Sod 4.5 gm/Sodium Chloride 100 ml @ 200 mls/hr ONCE ONCE IV 05/07/17 18:30 05/07/17 18:59 DC 05/07/17 19:25 200 MLS/HR Sodium Chloride 500 ml @ 0 mls/hr Q0M ONCE IV 05/07/17 18:21 05/07/17 18:24 DC 05/07/17 18:50 500 MLS/HR Sodium Chloride 1,000 ml @ 0 mls/hr Q0M ONCE IV 05/07/17 18:21 05/07/17 18:24 DC 05/07/17 18:42 1,000 MLS/HR (GARRISON HANKS MD) Vital Signs/I&O Vital Sign - Last 12Hours 05/07/17 05/07/17 05/07/17 18:01 18:01 19:01 Temp 95.6 Pulse 74 70 Resp 18 18 B/P (MAP) 74/42 103/62 Pulse Ox 80 94 O2 Delivery Non Rebreather OxyMask OxyMask O2 Flow Rate 10.00 8.00 (GARRISON HANKS MD) Progress Note : Time: 18:57 Progress Note Blood sugar is 168 in the ER however her blood pressure is reading in the upper 70s systolic over 50s diastolic and she has a temperature of 95.9. Patient is not clinically presenting in as much distress as her vital signs are relaying. Her sats were in the mid 70s to mid 80s on the nonrebreather so we gave her 5 mg of albuterol and a DuoNeb treatment and her saturations on the oxygen mask have improved now mid 90s. She has coughed up copious amounts of mucopurulent sputum. She has coarse lung sounds most consistent with septic shock secondary to a pneumonia and possible COPD. We will start her on Zosyn obtain blood and urine cultures inserted a [place] catheter and a central line at the bedside. We will also aggressively rehydrate her with fluids we have initiated 1500 (30 ml/ kg @ 110#) and will start another liter normal saline. Given her age of 41 and the fact she did not fall out of her wheelchair or seem to hit her head by the patient or EMS history we will just observe her and hold off scanning her head until we get her blood pressure better. (PATRICIA MURGUIA) ECG Initial ECG Impression Date: May 07, 2017 Initial ECG Impression Time: 18:14 Initial ECG Rate: 74 Initial ECG Rhythm: Normal Sinus Initial ECG Intervals: Normal Initial ECG Impression: Normal, Nonspecific Changes Initial ECG Comparisson: No Previous ECG Available Comment No T-wave elevation or depression. (PATRICIA MURGUIA) Diagnostic Imaging Diagonstic Imaging: Xray Plain Films/CT/US/NM/MRI: chest Comments NAME: AUNG DANIEL [facility] REC#: [id number] PHYSICIAN: PATRICIA MURGUIA MD CC: SALLY MAHARAJ; PATRICIA MURGUIA Page 1 of 1 RADIOLOGY REPORT VIA [facility]. [place], [place] CC: SALLY MAHARAJ; PATRICIA MURGUIA Page 1 of 1 RADIOLOGY REPORT NAME: AUNG DANIEL [facility] REC#: [id number] PT STATUS: REG ER : 1975 PHYSICIAN: PATRICIA MURGUIA MD ADMIT DATE: 05/07/17/ER Signed Date of Exam: 05/07/17 CHEST 1 VIEW, AP/PA ONLY INDICATION: Shortness of breath, wheezing. COMPARISON: 08/31/2016. FINDINGS: Single view of the chest demonstrates cardiac enlargement with central vascular congestion. Questionable asymmetric developing infiltrate is seen in the right base. No pneumothorax is identified. Osseous structures are normal. The tracheostomy is no longer seen. IMPRESSION: 1. Cardiac enlargement with central vascular congestion. 2. Questionable developing infiltrate in the right lung base. Follow-up recommended. 3. Not mentioned above esophageal stent in the distal esophagus and stomach. Dictated by: Dictated on workstation # [id number] Dict: 05/07/171847 Trans: 05/07/171855 Interpreted by: SALLY MAHARAJ Electronically signed by: SALLY MAHARAJ 05/07/171855 Diagonstic Imaging: Xray Plain Films/CT/US/NM/MRI: chest Comments NAME: AUNG DANIEL [facility] REC#: [id number] PT STATUS: REG ER : 1975 PHYSICIAN: RADHA JUNG APRN ADMIT DATE: 05/07/17/ER Draft Date of Exam:05/07/17 CHEST 1 VIEW, AP/PA ONLY INDICATION: Line placement. TECHNIQUE: Single view chest 7:57 p.m. CORRELATION STUDY: 05/07/2017. FINDINGS: Since the prior imaging, a right-sided central line has been placed via the neck. Tip projects over the proximal right atrium. A stent like device is in the expected location of the esophagus extending into the stomach. Heart size, mediastinum and vasculature are generally stable. Scattered patchy pulmonary parenchymal densities, right greater than left, are present. IMPRESSION: 1. Right IJ central line has been placed with tip projected over the proximal right atrium. No pneumothorax. 2. Scattered pulmonary parenchymal densities are generally stable. Heart size and vasculature are also stable. Dictated on workstation # [id number] Dict: 05/07/172012 Trans: 05/07/172016 [facility] [id number] Interpreted by: LUIGI LAWS DO Electronically signed by: Reviewed: Reviewed by Me (PATRICIA MURGUIA) Departure Communication (Admissions) Time/Spoke to Admitting Phy: 20:10 Communication Discussed case imaging lab findings and he is okay with Zosyn and vancomycin. (PATRICIA MURGUIA) Impression Impression: Primary Impression: Pneumonia Qualified Codes: J18.1 - Lobar pneumonia, unspecified organism Additional Impressions: Septic shock Episode of syncope Qualified Codes: R55 - Syncope and collapse UTI (urinary tract infection) Qualified Codes: N30.00 - Acute cystitis without hematuria Disposition: ADMITTED INPATIENT Condition: Stable Admissions Decision to Admit Reason: Admit from ER (General) Decision to Admit/Date: May 07, 2017 Time/Decision to Admit Time: 19:06 (PATRICIA MURGUIA) Departure-Patient Inst. Referrals: RANDI RIBEIRO DO (PCP) Primary Care Physician Copy Copies To 1: RANDI RIBEIRO TITUS J May 07, 2017 18:30 GARRISON HANKS MD May 07, 2017 19:50
[2017-05-07 18:51] LABS: BASOPHILS % (AUTO) 0 % (0-10); EOSINOPHILS # (AUTO) 0.2 10^3/uL (0.0-0.3); EOSINOPHILS % (AUTO) 3 % (0-10); LYMPHOCYTES # (AUTO) 1.7 X 10^3 (1.0-4.0); LYMPHOCYTES % (AUTO) 22 % (12-44); MEAN CORPUSCULAR HEMOGLOBIN 28 PG (25-34); MEAN CORPUSCULAR HGB CONC 31 G/DL (32-36); MEAN CORPUSCULAR VOLUME 90 FL (80-99); MEAN PLATELET VOLUME 10.1 FL (7.4-10.4); MONOCYTES # (AUTO) 0.5 X 10^3 (0.0-1.0); MONOCYTES % (AUTO) 6 % (0-12); NEUTROPHILS # (AUTO) 5.4 X 10^3 (1.8-7.8); NEUTROPHILS % (AUTO) 69 % (42-75); PLATELET COUNT 528 10^3/uL (130-400); RED CELL DISTRIBUTION WIDTH 15.5 % (10.0-14.5); WHITE BLOOD COUNT 7.8 10^3/uL (4.3-11.0)
--- NOTE | 2017-05-07 18:54 | Diagnostic Imaging Report ---
INDICATION: Shortness of breath, wheezing. COMPARISON: 08/31/2016. FINDINGS: Single view of the chest demonstrates cardiac enlargement with central vascular congestion. Questionable asymmetric developing infiltrate is seen in the right base. No pneumothorax is identified. Osseous structures are normal. The tracheostomy is no longer seen. IMPRESSION: 1. Cardiac enlargement with central vascular congestion. 2. Questionable developing infiltrate in the right lung base. Follow-up recommended. 3. Not mentioned above esophageal stent in the distal esophagus and stomach. Dictated by: Dictated on workstation # [id number]
[2017-05-07 18:59] LABS: ABG BASE EXCESS 6.3 MMOL/L (-2.5-2.5); ABG HCO3 31 MMOL/L (23-27); ABG OXYGEN SATURATION 91 % (94-100); ABG PCO2 48 MMHG (35-45); ABG PH 7.42 (7.37-7.43); ABG PO2 57 MMHG (79-93); ABG TCO2 32.5 MMOL/L (21.0-31.0)
[2017-05-07 19:00] LABS: PATIENT TEMP 96.5
[2017-05-07 19:08] LABS: INR 1.1 (0.8-1.4)
[2017-05-07 19:19] LABS: ALANINE AMINOTRANSFERASE 9 U/L (0-55); ANION GAP 9 MMOL/L (5-14); ASPARTATE AMINO TRANSFERASE 12 U/L (5-34); BILIRUBIN,TOTAL 0.2 MG/DL (0.1-1.0); BLOOD UREA NITROGEN 14 MG/DL (7-18); BUN/CREATININE RATIO 24; CALCIUM 8.6 MG/DL (8.5-10.1); CARBON DIOXIDE 30 MMOL/L (21-32); CHLORIDE 100 MMOL/L (98-107); CREATININE SERUM 0.58 MG/DL (0.60-1.30); GFR ESTIMATED > 60; GLUCOSE 262 MG/DL (70-105); MAGNESIUM 1.6 MG/DL (1.8-2.4); POTASSIUM 3.7 MMOL/L (3.6-5.0); SODIUM 139 MMOL/L (135-145); TOTAL PROTEIN 7.2 GM/DL (6.4-8.2)
[2017-05-07 19:25] LABS: TROPONIN I < 0.30 NG/ML (<0.30)
[2017-05-07 19:26] LABS: BILIRUBIN,URINE NEGATIVE (NEGATIVE); KETONES,URINE NEGATIVE (NEGATIVE); LEUKOCYTE ESTERASE ,URINE 3+ (NEGATIVE); NITRITE,URINE NEGATIVE (NEGATIVE); PH,URINE 6 (5-9); PROTEIN,URINE 2+ (NEGATIVE); UROBILINOGEN,URINE 1 MG/DL (NORMAL)
[2017-05-07 19:34] LABS: YEAST,URINE LARGE /HPF
[2017-05-07] MEDS ORDERED: MAGNESIUM OXIDE (MAG-OX)400 MG TAB PO ONE (19:45)
[2017-05-07] MEDS ORDERED: NS IV 1000 ML 1,000 ML IV SCH (20:15)
--- OUTSIDE RECORDS SUMMARY | 2017-05-07 20:16 | XMS REPORT | Clinical Summary ---
Author Author [facility] Organization [facility] Address Unknown Phone Unavailable Care Team Providers Care Trackman Name Role Phone PCP Unavailable Source Comments Some departments are not documenting in the electronic medical record. If you do not see the information that you expected, contact Release of Information in the Health Information Management department at [phone] for further assistance in locating additional records.[facility] Allergies Not on File Current Medications Not on file Active Problems Not on file Social History Tobacco Use Types Packs/Day Years Used Date Never Assessed Sex Assigned at Date Recorded Not on file Last Filed Vital Signs Not on file Plan of Treatment Health Maintenance Due Date Last Done Comments PHYSICAL (COMPREHENSIVE) 1980 EXAM PERTUSSIS VACCINE 1984 TETANUS VACCINE 1990 CERVICAL CANCER SCREENING 10/29/2003 BREAST CANCER SCREENING 2013 INFLUENZA VACCINE 01/22/2017 Results Not on filefrom Last 3 Months
--- NOTE | 2017-05-07 20:17 | Diagnostic Imaging Report ---
INDICATION: Line placement. TECHNIQUE: Single view chest 7:57 p.m. CORRELATION STUDY: 05/07/2017. FINDINGS: Since the prior imaging, a right-sided central line has been placed via the neck. Tip projects over the proximal right atrium. A stent like device is in the expected location of the esophagus extending into the stomach. Heart size, mediastinum and vasculature are generally stable. Scattered patchy pulmonary parenchymal densities, right greater than left, are present. IMPRESSION: 1. Right IJ central line has been placed with tip projected over the proximal right atrium. No pneumothorax. 2. Scattered pulmonary parenchymal densities are generally stable. Heart size and vasculature are also stable. Dictated by: Dictated on workstation # [id number]
[2017-05-07] MEDS ORDERED: ONDANSETRON 4 MG/2 ML (SDV) Z0FRAN IV PRN (21:30)
[2017-05-07] MEDS ORDERED: VASOPRESSIN INJECTION 20 UNIT in NS (IVPB) 50 ML IV SCH (21:45)
[2017-05-07] MEDS ORDERED: CATHETER FLUSH 10 ML SYR IV PRN (21:45)
[2017-05-07] MEDS ORDERED: NOREPINEPHRINE 4 MG in D5W IV SOLUTION (EXCEL) 250 ML IV SCH (21:45)
[2017-05-07] MEDS: NS IV 1000 ML 1,000 ML IV SCH ×2 (22:20→22:23)
[2017-05-07] MEDS: CATHETER FLUSH 10 ML SYR IV SCH (22:20)
[2017-05-07] MEDS ORDERED: RT-ALBUTEROL/IPRATROPIUM 3 ML (DUONEB) VIAL INH PRN (22:45)
--- OUTSIDE RECORDS SUMMARY | 2017-05-07 23:00 | XMS REPORT | Clinical Summary ---
Author Author [facility] Organization [facility] Address Unknown Phone Unavailable Care Team Providers Care Guest Services Ambassador Name Role Phone PCP Unavailable Source Comments Some departments are not documenting in the electronic medical record. If you do not see the information that you expected, contact Release of Information in the Health Information Management department at [phone] for further assistance in locating additional records.[facility] Allergies Not on File Current Medications [...]
[2017-05-07] MEDS ORDERED: ALPRAZolam 0.25 MG (XANAX) TAB PO ONE (23:30)
[2017-05-07] MEDS: HYDROcodone/APAP 7.5 MG/325 MG (LORTAB, LORCET PLUS) TABLET PO PRN (23:35)
[2017-05-08] VITALS (25 sets, daily range): BP systolic 94–134; BP diastolic 52–70
[2017-05-08] MEDS: NS IV 1000 ML 1,000 ML IV SCH ×4 (00:32→19:00)
[2017-05-08] MEDS: PIPERACILLIN/TAZOBACTAM 4.5 GM/NS100 ML IVPB IV SCH ×6 (00:49→15:54)
[2017-05-08] MEDS: RT-ALBUTEROL/IPRATROPIUM 3 ML (DUONEB) VIAL INH SCH ×6 (02:00→23:03)
[2017-05-08 05:04] LABS: BASOPHILS % (AUTO) 0 % (0-10); EOSINOPHILS % (AUTO) 0 % (0-10); LYMPHOCYTES # (AUTO) 1.4 X 10^3 (1.0-4.0); LYMPHOCYTES % (AUTO) 6 % (12-44); MEAN CORPUSCULAR HEMOGLOBIN 28 PG (25-34); MEAN CORPUSCULAR HGB CONC 31 G/DL (32-36); MEAN CORPUSCULAR VOLUME 91 FL (80-99); MEAN PLATELET VOLUME 10.5 FL (7.4-10.4); MONOCYTES # (AUTO) 0.7 X 10^3 (0.0-1.0); MONOCYTES % (AUTO) 3 % (0-12); NEUTROPHILS # (AUTO) 23.1 X 10^3 (1.8-7.8); NEUTROPHILS % (AUTO) 91 % (42-75); PLATELET COUNT 491 10^3/uL (130-400); RED BLOOD COUNT 3.63 10^6/uL (4.35-5.85); RED CELL DISTRIBUTION WIDTH 15.7 % (10.0-14.5); WHITE BLOOD COUNT 25.3 10^3/uL (4.3-11.0)
[2017-05-08 05:25] LABS: ANISOCYTOSIS SLIGHT; BAND NEUTROPHILS 16 %; BASOPHILS % (MANUAL) 0 %; EOSINOPHILS % (MANUAL) 0 %; HYPOCHROMASIA MODERATE; LYMPHOCYTES % (MANUAL) 2 %; NEUTROPHILS % (MANUAL) 78 %; REACTIVE LYMPHOCYTES 2 %
[2017-05-08 05:32] LABS: ALANINE AMINOTRANSFERASE 8 U/L (0-55); ALBUMIN 2.4 GM/DL (3.2-4.5); ANION GAP 9 MMOL/L (5-14); ASPARTATE AMINO TRANSFERASE 11 U/L (5-34); BILIRUBIN,TOTAL 0.3 MG/DL (0.1-1.0); BLOOD UREA NITROGEN 7 MG/DL (7-18); BUN/CREATININE RATIO 13; CALCIUM 7.7 MG/DL (8.5-10.1); CARBON DIOXIDE 23 MMOL/L (21-32); CHLORIDE 109 MMOL/L (98-107); CREATININE SERUM 0.52 MG/DL (0.60-1.30); GFR ESTIMATED > 60; GLUCOSE 229 MG/DL (70-105); MAGNESIUM 1.4 MG/DL (1.8-2.4); PHOSPHORUS 2.6 MG/DL (2.3-4.7); POTASSIUM 3.8 MMOL/L (3.6-5.0); SODIUM 141 MMOL/L (135-145); TOTAL PROTEIN 5.2 GM/DL (6.4-8.2)
[2017-05-08] MEDS: KCL 20 MEQ TAB (K-DUR) PO SCH (06:02)
[2017-05-08] MEDS: MAGNESIUM 1 GM/100 ML IVPB 100 ML IV SCH ×3 (06:02→07:00)
[2017-05-08] MEDS: CATHETER FLUSH 10 ML SYR IV SCH ×3 (06:03→22:16)
[2017-05-08] MEDS: POTASSIUM CL 10MEQ/50ML IVPB 50 ML IV SCH (06:03)
[2017-05-08] MEDS: inSUlin (REGULAR) HUMAN 1 UNIT/0.01 ML (CHARGE PER UNIT) SC SCH ×4 (06:03→21:13)
--- NOTE | 2017-05-08 07:00 | Pulmonary Consultation ---
History of Present Illness History of Present Illness Date of Consultation 05/08/17 06:53 Time Seen by Provider: 06:53 Date of Admission History of Present Illness 41yo with hx of pneumonia, PTX and tracheostomy presented via EMS from [facility]EDS AT [facility] presented after being found unresponsive. Upon EMS arrival she was found to have BS of 30 and was given an amp of D50. Pt did respond to D50. She was also found to have severe sepsis with shock. She was give aggressive IVF resuscitation and hypotension did improve. Sp02 was also 70% upon EMS arrival. Pt has had copious amounts of thick yellow/green sputum production. I am consulted for ICU management. Allergies and Home Medications Allergies Coded Allergies: Sulfa (Sulfonamide Antibiotics) (Verified Allergy, Mild, Rash, 07/12/16) Home Medications Acetaminophen 500 Mg Tablet, 1,000 MG PO Q4H PRN for pain/fever, (Reported) Alprazolam 0.25 Mg Tablet, 0.25 MG PEG BID PRN for ANXIETY, (Reported) Carvedilol 12.5 Mg Tablet, 12.5 MG PEG BID, (Reported) Guaifenesin 600 Mg Tab.er.12h, 600 MG PEG BID, (Reported) Guaifenesin/Dextromethorphan 237 Ml Liquid, 10 ML PO Q4H PRN for COUGH, ( Reported) Hydrocodone/Acetaminophen 1 Each Tablet, 1 EACH PEG Q12H PRN for PAIN-MILD TO MODERATE, (Reported) Insulin Detemir 100 Unit/1 Ml Insuln.pen, 16 UNIT SQ BID, (Reported) Insulin Regular, Human 1,000 Units/10 Ml Soln, 4 UNITS SQ QIDACHS, (Reported) Insulin Regular, Human 1,000 Units/10 Ml Soln, 0 SQ QIDACHS, (Reported) sliding scale Nitrofurantoin Monohyd/M-Cryst 100 Mg Capsule, 100 MG PO BID, (Reported) Pantoprazole Sodium 40 Mg Tablet.dr, 40 MG PEG DAILY, (Reported) Polyethylene Glycol 3350 119 Gm Powder, 17 GM PEG DAILY PRN for CONSTIPATION- 1ST LINE, (Reported) Past Wbhoabi-Nmmoda-Yoycim Hx Patient Social History Alcohol Use: Denies Use Recreational Drug Use: No Drug of Choice: polydrug abuse, meth Smoking Status: Current Everyday Smoker Type Used: Cigarettes 2nd Hand Smoke Exposure: No Recent Foreign Travel: No Contact w/Someone Who Travel: No Recent Infectious Disease Expo: No Recent Hopitalizations: Yes Immunizations Up To Date Tetanus Booster (TDap): Unknown Date of Pneumonia Vaccine: Aug 06, 2016 Date of Influenza Vaccine: Jun 24, 2016 Seasonal Allergies Seasonal Allergies: No Surgeries History of Surgeries: Yes (ovarian cyst removed with ovary, L hip fx, peg tube) Surgeries: Abdominal, Tracheostomy Respiratory History of Respiratory Disorde: Yes (hx of collapsed lung ) Respiratory Disorders: Pneumonia Cardiovascular History of Cardiac Disorders: Yes Cardiac Disorders: High Cholesterol, Hypertension Neurological History of Neurological Disord: Yes Neurological Disorders: Seizure Disorder Reproductive System Hx Reproductive Disorders: No Genitourinary History of Genitourinary Disor: Yes (Yeast in urine, UTI, inct) Gastrointestinal History of Gastrointestinal Di: Yes (peg tube) Gastrointestinal Disorders: Gastroesophageal Reflux, Gastrointestinal Bleed, Esophageal Varices Musculoskeletal History of Musculoskeletal Dis: Yes (Lt hip fx) Musculoskeletal Disorders: Fractures Endocrine History of Endocrine Disorders: Yes Endocrine Disorders: Diabetes, Insulin dep HEENT History of HEENT Disorders: No Hearing Impairment: Denies Cancer History of Cancer: No Psychosocial History of Psychiatric Problem: Yes Behavioral Health Disorders: Anxiety, Suicide Attempts, Depression Integumentary History of Skin or Integumenta: Yes (red heels, coccyx) Blood Transfusions History of Blood Disorders: No Adverse Reaction to a Blood Tr: No Family Medical History Family Medial History: Hypertension 19 FATHER Review of Systems Time Seen by Provider: 07:06 Constitutional: Fever, Chills, Sweats, Weakness, Malaise, No: Other Eyes: No: Pain, Vision change, Conjunctivae inflammation, Eyelid inflammation, Other, Redness ENT: No: Ear pain, Ear discharge, Nose pain, Nose discharge, Nose congestion, Mouth pain, Mouth swelling, Throat pain, Throat swelling, Other Respiratory: Cough, Shortness of breath, SOB with excertion, Wheezing, Sputum, No: Hemoptysis Cardiovascular: Orthopnea, Paroxysmal Noc. Dyspnea, Lt Headedness Gastrointestinal: No: Nausea, Vomiting, Abdominal Pain, Diarrhea, Constipation , Melena, Hematochezia, Other Neurological: Weakness, Incoordination, Confusion, No: Seizures Exam Exam Vital Signs Date Time Temp Pulse Resp B/P (MAP) Pulse Ox O2 Delivery O2 Flow Rate FiO2 05/08/17 06:00 90 20 114/59 98 Vapotherm 60.00 15.00 05/08/17 05:00 92 16 110/60 97 Vapotherm 60.00 15.00 05/08/17 04:50 98.0 Vapotherm 60.00 15.00 05/08/17 04:00 90 16 110/59 98 Vapotherm 60.00 15.00 05/08/17 04:00 95 Vapotherm 15.00 80 05/08/17 03:00 86 15 105/60 98 Vapotherm 60.00 15.00 05/08/17 02:34 Vapotherm 60.00 15.00 05/08/17 02:31 100 Vapotherm 15.00 80 05/08/17 02:00 89 16 105/61 100 Vapotherm 80.00 15.00 05/08/17 01:00 97 05/08/17 01:00 97 13 123/64 97 Vapotherm 80.00 15.00 05/08/17 00:50 99.6 Vapotherm 80.00 15.00 05/08/17 00:00 95 Vapotherm 15.00 80 05/08/17 00:00 86 20 134/68 100 Vapotherm 80.00 15.00 05/07/17 23:00 84 24 142/80 95 Vapotherm 80.00 15.00 05/07/17 22:45 75 21 115/64 100 Vapotherm 80.00 15.00 05/07/17 22:30 93 21 122/65 99 Vapotherm 80.00 15.00 05/07/17 22:15 72 20 121/78 98 Vapotherm 80.00 15.00 05/07/17 22:01 Vapotherm 15.00 80 05/07/17 22:00 70 17 124/85 98 Vapotherm 80.00 15.00 05/07/17 21:45 Vapotherm 80.00 15.00 05/07/17 21:45 71 19 124/70 91 Vapotherm 80.00 15.00 05/07/17 21:35 70 96 05/07/17 21:30 79 16 126/69 92 OxyMask 10.00 05/07/17 21:27 78 05/07/17 21:17 96.9 OxyMask 10.00 05/07/17 21:10 97.5 71 15 95 OxyMask 10.00 05/07/17 21:10 97.5 71 15 112/71 95 OxyMask 10.00 05/07/17 20:45 97.6 69 16 104/64 95 OxyMask 10.00 05/07/17 20:30 97.5 70 16 101/56 95 OxyMask 10.00 05/07/17 20:15 97.5 67 16 90/55 95 OxyMask 10.00 05/07/17 20:00 97.6 78 16 80/54 95 OxyMask 10.00 05/07/17 19:45 97.6 77 17 101/55 94 OxyMask 10.00 05/07/17 19:30 97.7 72 14 114/58 94 OxyMask 10.00 05/07/17 19:10 97.6 69 17 98/60 95 OxyMask 10.00 05/07/17 19:01 70 18 103/62 94 OxyMask 05/07/17 18:01 OxyMask 8.00 05/07/17 18:01 95.6 74 18 74/42 80 Non Rebreather 10.00 General Appearance: WD/WN, Mild Distress HEENT: PERRL/EOMI, TMs Normal, Normal ENT Inspection, Pharynx Normal, Other ( No hematoma, facial tenderness, oropharynx looks normal.) Neck: Full Range of Motion, Normal Inspection, Non Tender, Supple Respiratory: Chest Non Tender, No Accessory Muscle Use, Crackles (Bilateral bases especially right), Decreased Breath Sounds, Respiratory Distress (Mild to moderate), No Wheezing Cardiovascular: Regular Rate, Rhythm, No Edema, No JVD, Normal Peripheral Pulses Capillary Refill: Less Than 3 Seconds Extremity: Normal Capillary Refill, Normal Inspection, No Pedal Edema Neurologic/Psychiatric: Alert, Oriented x3 Skin: Normal Color, Warm/Dry Results Lab Laboratory Tests 05/07/17 18:13 05/08/17 04:30 Assessment/Plan Assessment/Plan Pneumonia HCAP with acute respiratory failure -Vanco, and Zosyn -Miranda cultures pending -SVNs -Oxygen -BiPAP PRN r/o aspiration pneumonia -consult speech therapy Severe sepsis secondary to pneumonia and UTI -IVF -Abx Hypotension- resolved with aggressive IVF -Continue NS Hypoglycemia -monitor Hx of tracheostomy with respiratory failure secondary to spontaneous PTX and pneumonia Atelectasis Hypomagnesium -replace 255 Clinical Quality Measures DVT/VTE Risk/Contraindication: Risk Factor Score Per Nursin RFS Level Per Nursing on Admit: 4+=Very High AUDELIA JUSTICE DO May 08, 2017 07:00
[2017-05-08] MEDS ORDERED: FAMOTIDINE 20 MG (PEPCID) TABLET PO PRN (07:15)
--- NOTE | 2017-05-08 07:31 | History & Physicial ---
History of Present Illness History of Present Illness Reason for visit/HPI patient in a resident of a correction. Patient came from [facility]. Patient smoking and passed out in a wheelchair. Pulse ox was in the 70s. EMS called Patient got blood sugar 372 and given D 50 percent. Blood pressure in emergency room 70/50. Temperature 95.9. Patient had septic shock. UTI. Pneumonia and acute respiratory failure. Probable aspiration pneumonia. Hypotension. Hypoglycemia. Hypoglycemia. Patient admitted to ICU Date of Admission May 07, 2017 at 20:15 Time Seen by Provider: 07:25 I consulted on this patient on 05/08/17 07:26 Attending Physician Israel Ribeiro DO Admitting Physician Israel Ribeiro DO Consult Allergies and Home Medications Allergies Coded Allergies: Sulfa (Sulfonamide Antibiotics) (Verified Allergy, Mild, Rash, 07/12/16) Home Medications Acetaminophen 500 Mg Tablet, 1,000 MG PO Q4H PRN for pain/fever, (Reported) Alprazolam 0.25 Mg Tablet, 0.25 MG PEG BID PRN for ANXIETY, (Reported) Carvedilol 12.5 Mg Tablet, 12.5 MG PEG BID, (Reported) Guaifenesin 600 Mg Tab.er.12h, 600 MG PEG BID, (Reported) Guaifenesin/Dextromethorphan 237 Ml Liquid, 10 ML PO Q4H PRN for COUGH, ( Reported) Hydrocodone/Acetaminophen 1 Each Tablet, 1 EACH PEG Q12H PRN for PAIN-MILD TO MODERATE, (Reported) Insulin Detemir 100 Unit/1 Ml Insuln.pen, 16 UNIT SQ BID, (Reported) Insulin Regular, Human 1,000 Units/10 Ml Soln, 4 UNITS SQ QIDACHS, (Reported) Insulin Regular, Human 1,000 Units/10 Ml Soln, 0 SQ QIDACHS, (Reported) sliding scale Nitrofurantoin Monohyd/M-Cryst 100 Mg Capsule, 100 MG PO BID, (Reported) Pantoprazole Sodium 40 Mg Tablet.dr, 40 MG PEG DAILY, (Reported) Polyethylene Glycol 3350 119 Gm Powder, 17 GM PEG DAILY PRN for CONSTIPATION- 1ST LINE, (Reported) Past Cdwxrej-Ksxuei-Istutt Hx Patient Social History Employed/Student: unemployed Alcohol Use: Denies Use Recreational Drug Use: No Drug of Choice: polydrug abuse, meth Smoking Status: Current Everyday Smoker Type Used: Cigarettes 2nd Hand Smoke Exposure: No Physical Abuse Screen: No Sexual Abuse: No Recent Foreign Travel: No Contact w/other who traveled: No Recent Hopitalizations: Yes Recent Infectious Disease Expo: No Immunizations Up To Date Tetanus Booster (TDap): Unknown Date of Pneumonia Vaccine: Aug 06, 2016 Date of Influenza Vaccine: Jun 24, 2016 Seasonal Allergies Seasonal Allergies: No Surgeries Yes (ovarian cyst removed with ovary, L hip fx, peg tube) Abdominal, Tracheostomy Respiratory Yes (hx of collapsed lung ) Pneumonia Cardiovascular Yes High Cholesterol, Hypertension Neurological Yes Seizure Disorder Reproductive System Hx Reproductive Disorders: No Genitourinary Yes (Yeast in urine, UTI, inct) Gastrointestinal Yes (peg tube) Gastroesophageal Reflux, Gastrointestinal Bleed, Esophageal Varices Musculoskeletal Yes (Lt hip fx) Fractures Endocrine History of Endocrine Disorders: Yes Endocrine Disorders: Diabetes, Insulin dep HEENT History of HEENT Disorders: No Hearing Impairment: Denies Cancer No Psychosocial History of Psychiatric Problem: Yes Behavioral Health Disorders: Anxiety, Suicide Attempts, Depression Integumentary History of Skin or Integumenta: Yes (red heels, coccyx) Blood Transfusions History of Blood Disorders: No Adverse Reaction to a Blood Tr: No Family Medical History Family Hx: Hypertension 19 FATHER Constitutional: weakness, other (syncope, hypotension, PEG tube) EENTM: no symptoms reported Respiratory: short of breath Cardiovascular: syncope Gastrointestinal: no symptoms reported, other (PEG tube) Genitourinary: no symptoms reported Physical Exam Vital Signs Vital Sign - Last 12Hours 05/07/17 22:01 FiO2 80 Capillary Refill : Less Than 3 Seconds General Appearance: No Apparent Distress, WD/WN Eyes: Bilateral Eye Normal Inspection HEENT: Normal ENT Inspection Neck: Full Range of Motion, Non Tender Respiratory: Decreased Breath Sounds, Other (congestion) Cardiovascular: Regular Rate, Rhythm, No Murmur Gastrointestinal: Non Tender, Soft, Other (2) Assessment/Plan Assessment and Plan pneumonia. UTI. Septic shock. Hypoglycemia. Hypotension. Syncope. Hypomagnesemia. Leukocytosis but did received Solu-Medrol Problems: Clinical Quality Measures DVT/VTE Risk/Contraindication: Risk Factor Score Per Nursin RFS Level Per Nursing on Admit: 4+=Very High ISRAEL RIBEIRO DO May 08, 2017 07:31
[2017-05-08] MEDS ORDERED: NS IV 1000 ML 1,500 ML IV PRN (08:15)
--- NOTE | 2017-05-08 08:27 | Speech Therapy Progress Note ---
Therapy Progress Note Bedside Swallowing Evaluation Consult received for this patient. Due to the patient's extensive past medical history of aspiration (severe, documented on two past video swallow evaluations), a modified barium swallow is recommended. This information was shared with the RN, who agreed to place the consult for the modified barium swallow. Once orders are received, the clinician will schedule the assessment as soon as possible. AUNG FRAGA May 08, 2017 08:27
[2017-05-08] MEDS ORDERED: VANCOMYCIN 1250 MG/NS 250 ML IVPB IV SCH ×2 (08:30)
[2017-05-08] MEDS: ENOXAPARIN 40 MG/0.4 ML (LOVENOX) SYR SC SCH (08:41)
--- NOTE | 2017-05-08 09:05 | Diagnostic Imaging Report ---
INDICATION: Followup pneumonia. COMPARISON: 05/07/2017. FINDINGS: Single frontal radiographic view of the chest was obtained and demonstrates interval progression of alveolar opacities within the bilateral mid and lower lung leyva. There is no large effusion or pneumothorax. Cardiac silhouette and pulmonary vasculature within normal limits. Indwelling esophageal stent is noted. Right internal jugular central venous catheter tip terminates in the low SVC. Bony structures show no gross acute abnormalities. IMPRESSION: 1. Interval progression of patchy and confluent alveolar infiltrates within the bilateral mid and lower lung leyva concerning for pneumonia. Continued followup is recommended. Dictated by: Dictated on workstation # [id number]
[2017-05-08] MEDS ORDERED: VANCOMYCIN 1 GM/NS 250 ML IVPB IV SCH ×2 (09:30)
--- NOTE | 2017-05-08 10:28 | Speech Therapy Progress Note ---
Therapy Progress Note The patient is scheduled for a modified barium swallow on 05/09/2017 at 9:45am. The RN will be notified by this clinician. AUNG FRAGA May 08, 2017 10:28
[2017-05-08] MEDS ORDERED: INFLUENZA TRIvalent 2017-2018 0.5 ML/45 MCG SYR IM ONE (10:45)
[2017-05-08] MEDS ORDERED: PANT40SU PEG (13:45)
[2017-05-08] MEDS ORDERED: LOVA10TA PEG (13:45)
[2017-05-08] MEDS ORDERED: CITA10SO PEG (13:45)
[2017-05-08] MEDS ORDERED: CARV6.252 PEG (13:45)
[2017-05-08] MEDS ORDERED: ASPI-983 PEG (13:45)
[2017-05-08] MEDS ORDERED: DOCU100T2 PEG (13:45)
[2017-05-08] MEDS ORDERED: GUAI-367 PEG (13:45)
[2017-05-08] MEDS ORDERED: GLUC1KIT IM (13:45)
[2017-05-08] MEDS: ALPRAZolam 0.25 MG (XANAX) TAB PO PRN (21:11)
[2017-05-08] MEDS: VANCOMYCIN 1 GM/NS 250 ML IVPB IV SCH ×2 (21:11)
[2017-05-08] MEDS: HYDROcodone/APAP 7.5 MG/325 MG (LORTAB, LORCET PLUS) TABLET PO PRN (21:11)
[2017-05-09] VITALS (19 sets, daily range): BP systolic 94–139; BP diastolic 57–73
[2017-05-09] MEDS: PIPERACILLIN/TAZOBACTAM 4.5 GM/NS100 ML IVPB IV SCH ×6 (01:31→16:55)
[2017-05-09] MEDS: NS IV 1000 ML 1,000 ML IV SCH ×4 (02:18→16:58)
[2017-05-09] MEDS: RT-ALBUTEROL/IPRATROPIUM 3 ML (DUONEB) VIAL INH SCH ×5 (03:06→19:00)
[2017-05-09 05:14] LABS: BASOPHILS % (AUTO) 0 % (0-10); EOSINOPHILS # (AUTO) 0.1 10^3/uL (0.0-0.3); EOSINOPHILS % (AUTO) 0 % (0-10); LYMPHOCYTES # (AUTO) 1.3 X 10^3 (1.0-4.0); LYMPHOCYTES % (AUTO) 5 % (12-44); MEAN CORPUSCULAR HEMOGLOBIN 28 PG (25-34); MEAN CORPUSCULAR HGB CONC 31 G/DL (32-36); MEAN CORPUSCULAR VOLUME 90 FL (80-99); MEAN PLATELET VOLUME 9.7 FL (7.4-10.4); MONOCYTES # (AUTO) 0.9 X 10^3 (0.0-1.0); MONOCYTES % (AUTO) 4 % (0-12); NEUTROPHILS % (AUTO) 91 % (42-75); PLATELET COUNT 453 10^3/uL (130-400); RED CELL DISTRIBUTION WIDTH 15.6 % (10.0-14.5); WHITE BLOOD COUNT 24.3 10^3/uL (4.3-11.0)
[2017-05-09 05:53] LABS: ALANINE AMINOTRANSFERASE 8 U/L (0-55); ALBUMIN 2.4 GM/DL (3.2-4.5); ANION GAP 12 MMOL/L (5-14); ASPARTATE AMINO TRANSFERASE 11 U/L (5-34); BILIRUBIN,TOTAL 0.4 MG/DL (0.1-1.0); BLOOD UREA NITROGEN 5 MG/DL (7-18); BUN/CREATININE RATIO 9; CALCIUM 8.2 MG/DL (8.5-10.1); CARBON DIOXIDE 20 MMOL/L (21-32); CHLORIDE 104 MMOL/L (98-107); CREATININE SERUM 0.53 MG/DL (0.60-1.30); GFR ESTIMATED > 60; GLUCOSE 241 MG/DL (70-105); MAGNESIUM 1.3 MG/DL (1.8-2.4); PHOSPHORUS 1.5 MG/DL (2.3-4.7); POTASSIUM 3.9 MMOL/L (3.6-5.0); SODIUM 136 MMOL/L (135-145); TOTAL PROTEIN 5.9 GM/DL (6.4-8.2)
[2017-05-09] MEDS: MAGNESIUM 1 GM/100 ML IVPB 100 ML IV SCH ×5 (06:13→08:37)
[2017-05-09] MEDS: POTASSIUM CL 10MEQ/50ML IVPB 50 ML IV SCH (06:13)
[2017-05-09] MEDS: KCL 20 MEQ TAB (K-DUR) PO SCH (06:14)
--- NOTE | 2017-05-09 06:29 | Pulmonary Progress Note ---
Subjective Time Seen by Provider: 06:36 Subjective/Events-last exam Pt is doing better. No complications noted. Pt has been refusing breathing treatments. Exam Exam Vital Signs Date Time Temp Pulse Resp B/P (MAP) Pulse Ox O2 Delivery O2 Flow Rate FiO2 05/09/17 04:22 97 Vapotherm 15.00 40 05/09/17 04:19 98.1 116 20 138/70 96 Vapotherm 40.00 15.00 05/09/17 04:00 107 21 138/70 98 Vapotherm 40.00 15.00 05/09/17 03:07 99 Vapotherm 15.00 40 05/09/17 03:00 101 20 127/63 98 Vapotherm 40.00 15.00 05/09/17 02:00 97 21 130/66 91 Vapotherm 40.00 15.00 05/09/17 01:00 81 05/09/17 01:00 82 18 117/69 99 Vapotherm 40.00 15.00 05/09/17 00:00 95.9 77 12 125/71 99 Vapotherm 40.00 15.00 05/09/17 00:00 97 Vapotherm 15.00 40 05/08/17 23:03 99 Vapotherm 15.00 40 05/08/17 23:00 78 15 120/67 96 Vapotherm 40.00 15.00 05/08/17 22:00 79 14 117/70 99 Vapotherm 40.00 15.00 05/08/17 21:00 84 35 102/52 98 Vapotherm 40.00 15.00 05/08/17 20:00 87 22 117/66 97 Vapotherm 40.00 15.00 05/08/17 19:35 97 Vapotherm 15.00 40 05/08/17 19:35 98.8 84 20 104/64 97 Vapotherm 40.00 15.00 05/08/17 19:00 89 15 102/64 97 Vapotherm 60.00 15.00 05/08/17 19:00 88 05/08/17 18:29 99 Vapotherm 15.00 40 05/08/17 18:00 80 13 95/59 97 Vapotherm 60.00 15.00 05/08/17 17:00 80 15 101/61 96 Vapotherm 60.00 15.00 05/08/17 16:00 78 17 116/62 93 Vapotherm 60.00 15.00 05/08/17 15:27 95 Vapotherm 15.00 40 05/08/17 15:00 88 20 106/59 96 Vapotherm 60.00 15.00 05/08/17 14:00 81 17 118/61 96 Vapotherm 60.00 15.00 05/08/17 13:00 80 16 118/61 95 Vapotherm 60.00 15.00 05/08/17 13:00 80 05/08/17 12:00 79 15 103/56 97 Vapotherm 60.00 15.00 05/08/17 11:54 95 Vapotherm 15.00 40 05/08/17 11:00 88 18 108/57 96 Vapotherm 60.00 15.00 05/08/17 10:00 92 13 94/52 94 Vapotherm 60.00 15.00 05/08/17 09:00 93 25 96/57 94 Vapotherm 60.00 15.00 05/08/17 08:24 87 05/08/17 08:00 90 14 94/58 96 Vapotherm 60.00 15.00 05/08/17 08:00 95 Vapotherm 15.00 40 05/08/17 07:18 95 Vapotherm 15.00 40 05/08/17 07:00 87 20 111/52 97 Vapotherm 60.00 15.00 General Appearance: No Apparent Distress, WD/WN HEENT: Normal ENT Inspection Neck: Full Range of Motion, Non Tender Respiratory: Decreased Breath Sounds, Other (congestion) Cardiovascular: Regular Rate, Rhythm, No Murmur Capillary Refill: Less Than 3 Seconds Extremity: Normal Capillary Refill, Normal Inspection, No Pedal Edema Neurologic/Psychiatric: Alert, Oriented x3 Skin: Normal Color, Warm/Dry Results Lab Laboratory Tests 05/07/17 18:13 05/08/17 04:30 05/09/17 05:05 Assessment/Plan Assessment/Plan Pneumonia HCAP with acute respiratory failure -Vanco, and Zosyn -Add Diflucan -Miranda cultures pending -SVNs change to QID secondary to patient refusing treatments during the night. -Oxygen -BiPAP PRN r/o aspiration pneumonia -consult speech therapy Severe sepsis secondary to pneumonia and UTI - improving -IVF -Abx Hx of tracheostomy with respiratory failure secondary to spontaneous PTX and pneumonia Atelectasis Hypomagnesium -replace 233 Pt is doing better will transfer to 4th floor. Clinical Quality Measures DVT/VTE Risk/Contraindication: Risk Factor Score Per Nursin RFS Level Per Nursing on Admit: 4+=Very High ADUELIA JUSTICE DO May 09, 2017 06:28
[2017-05-09] MEDS: ENOXAPARIN 40 MG/0.4 ML (LOVENOX) SYR SC SCH (06:32)
[2017-05-09] MEDS: inSUlin (REGULAR) HUMAN 1 UNIT/0.01 ML (CHARGE PER UNIT) SC SCH ×4 (06:33→21:30)
[2017-05-09] MEDS: CATHETER FLUSH 10 ML SYR IV SCH ×3 (06:33→21:03)
[2017-05-09] MEDS ORDERED: FLUCONAZOLE 200 MG/100 ML 100 ML IV NR (06:48)
[2017-05-09] MEDS ORDERED: SODIUM PHOSPHATE INJ 30 MM in NS (IVPB) 250 ML IV NR (06:50)
--- NOTE | 2017-05-09 07:46 | Progress Note (SOAP) ---
Subjective Time Seen by Provider: 07:40 Subjective/Events-last exam patient feeling better today and breathing better. Chest x-ray yesterday looked worse with pneumonia. Patient has history of noncompliance. Patient refused breathing treatments yesterday's but will take it today. Patient has history of severe aspiration. Patient to have modified barium study today. Leukocytosis. Sputum culture and urine shows yeast. Sepsis due to pneumonia and UTI. Objective Exam Vital Signs Date Time Temp Pulse Resp B/P (MAP) Pulse Ox O2 Delivery O2 Flow Rate FiO2 05/09/17 06:33 Nasal Cannula 5.00 05/09/17 06:31 Nasal Cannula 5.00 05/09/17 06:22 97 Vapotherm 15.00 40 05/09/17 06:00 108 16 129/71 97 Vapotherm 40.00 15.00 05/09/17 05:00 111 20 139/71 96 Vapotherm 40.00 15.00 05/09/17 04:22 97 Vapotherm 15.00 40 05/09/17 04:19 98.1 116 20 138/70 96 Vapotherm 40.00 15.00 05/09/17 04:00 107 21 138/70 98 Vapotherm 40.00 15.00 05/09/17 03:07 99 Vapotherm 15.00 40 05/09/17 03:00 101 20 127/63 98 Vapotherm 40.00 15.00 05/09/17 02:00 97 21 130/66 91 Vapotherm 40.00 15.00 05/09/17 01:00 81 05/09/17 01:00 82 18 117/69 99 Vapotherm 40.00 15.00 05/09/17 00:00 95.9 77 12 125/71 99 Vapotherm 40.00 15.00 05/09/17 00:00 97 Vapotherm 15.00 40 05/08/17 23:03 99 Vapotherm 15.00 40 05/08/17 23:00 78 15 120/67 96 Vapotherm 40.00 15.00 05/08/17 22:00 79 14 117/70 99 Vapotherm 40.00 15.00 05/08/17 21:00 84 35 102/52 98 Vapotherm 40.00 15.00 05/08/17 20:00 87 22 117/66 97 Vapotherm 40.00 15.00 05/08/17 19:35 97 Vapotherm 15.00 40 05/08/17 19:35 98.8 84 20 104/64 97 Vapotherm 40.00 15.00 05/08/17 19:00 89 15 102/64 97 Vapotherm 60.00 15.00 05/08/17 19:00 88 05/08/17 18:29 99 Vapotherm 15.00 40 05/08/17 18:00 80 13 95/59 97 Vapotherm 60.00 15.00 05/08/17 17:00 80 15 101/61 96 Vapotherm 60.00 15.00 05/08/17 16:00 78 17 116/62 93 Vapotherm 60.00 15.00 05/08/17 15:27 95 Vapotherm 15.00 40 05/08/17 15:00 88 20 106/59 96 Vapotherm 60.00 15.00 05/08/17 14:00 81 17 118/61 96 Vapotherm 60.00 15.00 05/08/17 13:00 80 16 118/61 95 Vapotherm 60.00 15.00 05/08/17 13:00 80 05/08/17 12:00 79 15 103/56 97 Vapotherm 60.00 15.00 05/08/17 11:54 95 Vapotherm 15.00 40 05/08/17 11:00 88 18 108/57 96 Vapotherm 60.00 15.00 05/08/17 10:00 92 13 94/52 94 Vapotherm 60.00 15.00 05/08/17 09:00 93 25 96/57 94 Vapotherm 60.00 15.00 05/08/17 08:24 87 05/08/17 08:00 90 14 94/58 96 Vapotherm 60.00 15.00 05/08/17 08:00 95 Vapotherm 15.00 40 Capillary Refill : Less Than 3 Seconds General Appearance: No Apparent Distress, Anxious HEENT: Normal ENT Inspection Neck: Normal Inspection Respiratory: Normal Breath Sounds, No Accessory Muscle Use, No Respiratory Distress Cardiovascular: Regular Rate, Rhythm, No Murmur Gastrointestinal: non tender, other (has PEG tube) Results Lab Laboratory Tests 05/08/17 11:15: Glucometer 184H 05/08/17 15:40: Glucometer 204H 05/08/17 21:12: Glucometer 99 05/09/17 05:05: White Blood Count 24.3H, Red Blood Count 3.60L, Hemoglobin 10.1L, Hematocrit 33L , Mean Corpuscular Volume 90, Mean Corpuscular Hemoglobin 28, Mean Corpuscular Hemoglobin Concent 31L, Red Cell Distribution Width 15.6H, Platelet Count 453H, Mean Platelet Volume 9.7, Neutrophils (%) (Auto) 91H, Lymphocytes (%) (Auto) 5L , Monocytes (%) (Auto) 4, Eosinophils (%) (Auto) 0, Basophils (%) (Auto) 0, Neutrophils # (Auto) 22.0H, Lymphocytes # (Auto) 1.3, Monocytes # (Auto) 0.9, Eosinophils # (Auto) 0.1, Basophils # (Auto) 0.0, Sodium Level 136, Potassium Level 3.9, Chloride Level 104, Carbon Dioxide Level 20L, Anion Gap 12, Blood Urea Nitrogen 5L, Creatinine 0.53L, Estimat Glomerular Filtration Rate > 60, BUN /Creatinine Ratio 9, Glucose Level 241H, Calcium Level 8.2L, Phosphorus Level 1.5L, Magnesium Level 1.3L, Total Bilirubin 0.4, Aspartate Amino Transf (AST/ SGOT) 11, Alanine Aminotransferase (ALT/SGPT) 8, Alkaline Phosphatase 111, B- Type Natriuretic Peptide 155.6H, Total Protein 5.9L, Albumin 2.4L Microbiology 05/07/17 Blood Culture - Preliminary, Resulted No growth 05/07/17 MRSA Screen - Final, Complete MRSA not isolated 05/07/17 Urine Culture - Preliminary, Resulted Yeast Species See Comments Assessment/Plan Assessment/Plan Assess & Plan/Chief Complaint sepsis. Pneumonia. UTI. Hypoglycemia. History of aspiration. PEG tube. Diabetes. Noncompliance history Clinical Quality Measures DVT/VTE Risk/Contraindication: Risk Factor Score Per Nursin RFS Level Per Nursing on Admit: 4+=Very High RANDI RIBEIRO DO May 09, 2017 07:46
[2017-05-09] MEDS: VANCOMYCIN 1 GM/NS 250 ML IVPB IV SCH ×4 (08:35→20:58)
--- NOTE | 2017-05-09 09:21 | Diagnostic Imaging Report ---
INDICATION: Septic shock and urinary tract infection. COMPARISON: 05/08/2017 FINDINGS: Single view of the chest demonstrates persistent but slightly decreased bilateral pulmonary infiltrates. Trace effusions are present. Heart remains mildly enlarged. There is no pneumothorax. Right IJ catheter is present. IMPRESSION: Slight interval decrease in the bilateral pulmonary infiltrates. Stable trace effusions. Dictated by: Dictated on workstation # [id number]
--- NOTE | 2017-05-09 11:09 | ST Mod Barium Swallow ---
Speech Evaluation-General Medical Diagnosis Right Lobe Pneumonia Onset Date: May 06, 2017 Therapy Diagnosis Therapy Diagnosis: Severe Esophageal Dysphagia Precautions Precautions: Aspiration Precautions/Isolations: Fall Prevention, Standard Precautions Referral Referring Physician: Dr. Israel Winters Reason for Referral: Evaluation/Treatment Modified Barium Swallow Evaluation Medical History Pertinent Medical History: DM, Fractures, Smoking The patient is well known to this department following several past modified barium swallow evaluations. Following the most recent swallow evaluation in December 2016, speech pathology recommended the patient remain NPO with trials of puree consistencies. The patient has a PEG tube in place and a past medical history significant for esophageal perforation. Speech Mod Barium Swallow Prior Level of Function Per patient, she has consumed a "soft" diet at the "care home" and thin liquids. The patient stated "I drink juice, pop, water, whatever I want." The patient denied coughing and choking with any consistency she currently consumes. CXR: 05/09/2017: Slight interval decrease in the bilateral pulmonary infiltrates. Oral Motor Skills Dentition Comments: Edentulous. Lingual Protrusion: Normal Lingual ROM: Normal Lingual Strength: Normal Velum: Normal Volitional Dry Swallow: Yes Voluntary Cough: Yes Can Clear Throat Volitionally: Yes Textures-Lateral View Lateral View Food Presentation: [place] Liquid via Spoon, Honey Liquid via Spoon Oral Phase Labial Closure: No Impairment (WFL) Bolus Formation Pooling L/R: No Impairment (WFL) Bolus Formation Placement: No Impairment (WFL) A/P Lingual Propulsion: No Impairment (WFL) Lingual Movement: No Impairment (WFL) The patient displays mild lingual coating of residual material following the swallow with honey-thick and nectar-thick liquids tested. Oral Phase Residue: No Impairment (WFL) Pharyngeal Phase Swallow Response: Moderate Impairment (Pharyngeal swallow onset was not initiated until bolus material reached the pyriform sinuses.) Base of Tongue: Minimal Impairment Epiglottic Movement: Moderate Impairment (Partial inversion was noted of the epiglottis which appeared secondary to moderately reduced hyolaryngeal excursion and severely reduced laryngeal elevation.) Laryngeal Elevation: Severe Impairment Vallecular Residue: Mild Pharyngeal Wall Residue: Mild Piriform Sinus Residue: Severe Laryngeal Penetration: Moderate (Moderate laryngeal penetration occurred with nectar-thick liquids during the swallow. The penetrated material cleared the laryngeal vestibul upon completion of the swallow.) Aspiration Observations: None Other Pharyngeal Observations: No aspiration was noted with any consistency tested. Deep laryngeal penetration occurred with nectar-thick liquid during the swallow. Once material cleared the UES, the material remained at the location of the distal esophagus. Retrograde flow was noted, with material returning to the pyriform sinuses and penetrating the laryngeal vestibule. The patient continuously expectorated material returned to the pyriform sinuses. Limited to none of the material provided cleared the distal esophagus. The retrograde flow places the patient at an extremely high risk for aspiration following the swallow. Esophageal Phase Peristalsis: Severe A/P Esophageal Propulsion Time: Greater Than 5 Seconds Abnormal Other Esophageal Observations: Enter Comments (See pharyngeal observations from above.) Performed-A/P View Not Applicable/Performed Summary/Impressions Oral Phase Impression: Mild Impairment While the patient displays mild to moderate pharyngeal phase dysphagia, the patient's aspiration risk is secondary to her severe esophageal dysphagia. Limited to no bolus material cleared the distal esophageal region. The material demonstrated retrograde flow, returning to the pyriform sinuses and penetrating the laryngeal vestibule. Following this observation, the Radiology ceased the evaluation. The Radiologist recommends the patient remain NPO with total nutrition, hydration, and medication received via PEG tube. Additionally, the radiologist recommends referral to the patient's GI physician for further management. Speech-Plan Treatment Plan Speech Therapy Treatment Plan: Discontinue ST As the patient's largest deficit and highest risk for aspiration is at the esophageal region, the speech pathologist with defer treatment options to the patient's GI physician. Following treatment by GI, if appropriate, please reconsult speech pathology. Frequency: 1 time per week (Evaluation, only.) Estimated Hrs Per Day: Other (Evaluation, only.) Rehab Potential: Poor Safety Risks/Education Teaching Recipient: Patient Teaching Methods: Discussion Response to Teaching: Verbalize Understanding, Reinforcement Needed Education Topics Provided: NPO Recommendation, Results, Recommendations (to note, the patient has a history of noncompliance with NPO recommendation). Time Speech Therapy Time In: 10:45 Speech Therapy Time Out: 11:05 Total Billed Time: 20 Billed Treatment Time 1, AUNG GRULLON May 09, 2017 11:09
--- NOTE | 2017-05-09 13:31 | Diagnostic Imaging Report ---
EXAMINATION: Modified barium swallow. Indication: Dysphagia Different consistencies of fluid and food was given mixed with barium and swallowing was visualized under fluoroscopy. FLUOROSCOPY TIME: One minute and 34 seconds FINDINGS: No aspiration seen. However the patient couldn't tolerate even minimal amount of oral intake. Imaging of the upper esophagus demonstrates accumulation of barium in the upper esophagus with suggestion of a severe stricture, about 5-6 cm in length in the upper to mid esophagus.. 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 The patient is not able to tolerate even small oral intake at this time. Please refer to speech therapist's report for additional details . The findings were discussed with Dr. Caba at time of dictation. Dictated by: Dictated on workstation # [id number]
[2017-05-09] MEDS ORDERED: TROUGH ORDER-PHARMACY XX NR (19:30)
[2017-05-10 00:25] VITALS: BP 128/74
[2017-05-10] MEDS: PIPERACILLIN/TAZOBACTAM 4.5 GM/NS100 ML IVPB IV SCH ×6 (00:34→16:14)
[2017-05-10 04:08] VITALS: BP 122/69
[2017-05-10 04:48] LABS: BASOPHILS % (AUTO) 0 % (0-10); EOSINOPHILS # (AUTO) 0.3 10^3/uL (0.0-0.3); EOSINOPHILS % (AUTO) 2 % (0-10); LYMPHOCYTES # (AUTO) 1.8 X 10^3 (1.0-4.0); LYMPHOCYTES % (AUTO) 13 % (12-44); MEAN CORPUSCULAR HEMOGLOBIN 28 PG (25-34); MEAN CORPUSCULAR HGB CONC 31 G/DL (32-36); MEAN CORPUSCULAR VOLUME 91 FL (80-99); MEAN PLATELET VOLUME 9.8 FL (7.4-10.4); MONOCYTES # (AUTO) 0.7 X 10^3 (0.0-1.0); MONOCYTES % (AUTO) 5 % (0-12); NEUTROPHILS # (AUTO) 10.7 X 10^3 (1.8-7.8); NEUTROPHILS % (AUTO) 79 % (42-75); PLATELET COUNT 412 10^3/uL (130-400); RED BLOOD COUNT 3.36 10^6/uL (4.35-5.85); RED CELL DISTRIBUTION WIDTH 15.5 % (10.0-14.5); WHITE BLOOD COUNT 13.4 10^3/uL (4.3-11.0)
[2017-05-10 05:08] LABS: ALANINE AMINOTRANSFERASE 9 U/L (0-55); ALBUMIN 2.3 GM/DL (3.2-4.5); ANION GAP 11 MMOL/L (5-14); ASPARTATE AMINO TRANSFERASE 7 U/L (5-34); BILIRUBIN,TOTAL 0.4 MG/DL (0.1-1.0); BLOOD UREA NITROGEN 4 MG/DL (7-18); BUN/CREATININE RATIO 9; CALCIUM 8.2 MG/DL (8.5-10.1); CARBON DIOXIDE 21 MMOL/L (21-32); CHLORIDE 107 MMOL/L (98-107); CREATININE SERUM 0.46 MG/DL (0.60-1.30); GFR ESTIMATED > 60; GLUCOSE 180 MG/DL (70-105); MAGNESIUM 1.6 MG/DL (1.8-2.4); PHOSPHORUS 2.4 MG/DL (2.3-4.7); POTASSIUM 3.4 MMOL/L (3.6-5.0); SODIUM 139 MMOL/L (135-145); TOTAL PROTEIN 5.6 GM/DL (6.4-8.2)
[2017-05-10] MEDS: CATHETER FLUSH 10 ML SYR IV SCH ×3 (05:36→21:16)
[2017-05-10] MEDS: NS IV 1000 ML 1,000 ML IV SCH ×4 (06:03→19:35)
[2017-05-10] MEDS: inSUlin (REGULAR) HUMAN 1 UNIT/0.01 ML (CHARGE PER UNIT) SC SCH ×4 (06:04→21:13)
[2017-05-10] MEDS: ENOXAPARIN 40 MG/0.4 ML (LOVENOX) SYR SC SCH (06:04)
[2017-05-10] MEDS: RT-ALBUTEROL/IPRATROPIUM 3 ML (DUONEB) VIAL INH SCH ×4 (06:50→19:00)
[2017-05-10] MEDS ORDERED: POTASSIUM CL 10MEQ/50ML IVPB 50 ML IV NR (07:00)
--- NOTE | 2017-05-10 07:03 | Progress Note (SOAP) ---
Subjective Time Seen by Provider: 06:45 Objective Exam Vital Signs Date Time Temp Pulse Resp B/P (MAP) Pulse Ox O2 Delivery O2 Flow Rate FiO2 05/10/17 06:53 94 28 05/10/17 06:51 97 Nasal Cannula 2.00 05/10/17 04:08 98.0 80 18 122/69 98 Nasal Cannula 3.00 05/10/17 00:25 97.7 72 18 128/74 99 Nasal Cannula 3.00 05/09/17 20:22 97.0 80 16 122/68 96 Nasal Cannula 3.00 05/09/17 20:00 Vapotherm 3.00 05/09/17 16:08 96.7 70 18 94/64 98 Nasal Cannula 3.00 05/09/17 14:01 97 Nasal Cannula 3.00 05/09/17 14:00 97.9 72 20 96/65 96 Nasal Cannula 3.00 05/09/17 13:00 100/57 05/09/17 12:00 96 Vapotherm 3.00 05/09/17 12:00 102/59 05/09/17 11:43 98.6 67 24 104/58 98 Nasal Cannula 3.00 05/09/17 11:00 104/58 05/09/17 10:00 75 17 112/65 100 Nasal Cannula 3.00 05/09/17 09:00 86 30 104/62 99 Nasal Cannula 3.00 05/09/17 08:12 98 05/09/17 08:00 92 22 104/67 98 Nasal Cannula 3.00 05/09/17 08:00 91 20 111/73 96 Nasal Cannula 3.00 05/09/17 08:00 94 Vapotherm 3.00 05/09/17 07:00 84 05/09/17 07:00 95 17 114/69 97 Nasal Cannula 3.00 05/09/17 07:00 98.2 96 16 123/69 Nasal Cannula 5.00 Capillary Refill : Less Than 3 Seconds General Appearance: No Apparent Distress, WD/WN Respiratory: No Accessory Muscle Use, No Respiratory Distress, Other ( congestion and chest, spitting up phlegm) Cardiovascular: Regular Rate, Rhythm Gastrointestinal: non tender, soft Results Lab Laboratory Tests 05/10/17 04:30 Laboratory Tests 05/09/17 11:16: Glucometer 181H 05/09/17 16:12: Glucometer 112H 05/09/17 20:55: Glucometer 185H 05/09/17 21:05: Vancomycin Level Trough 7.1L 05/10/17 04:30: White Blood Count 13.4H, Red Blood Count 3.36L, Hemoglobin 9.4L, Hematocrit 31L , Mean Corpuscular Volume 91, Mean Corpuscular Hemoglobin 28, Mean Corpuscular Hemoglobin Concent 31L, Red Cell Distribution Width 15.5H, Platelet Count 412H, Mean Platelet Volume 9.8, Neutrophils (%) (Auto) 79H, Lymphocytes (%) (Auto) 13 , Monocytes (%) (Auto) 5, Eosinophils (%) (Auto) 2, Basophils (%) (Auto) 0, Neutrophils # (Auto) 10.7H, Lymphocytes # (Auto) 1.8, Monocytes # (Auto) 0.7, Eosinophils # (Auto) 0.3, Basophils # (Auto) 0.0, Sodium Level 139, Potassium Level 3.4L, Chloride Level 107, Carbon Dioxide Level 21, Anion Gap 11, Blood Urea Nitrogen 4L, Creatinine 0.46L, Estimat Glomerular Filtration Rate > 60, BUN /Creatinine Ratio 9, Glucose Level 180H, Calcium Level 8.2L, Phosphorus Level 2.4, Magnesium Level 1.6L, Total Bilirubin 0.4, Aspartate Amino Transf (AST/SGOT ) 7, Alanine Aminotransferase (ALT/SGPT) 9, Alkaline Phosphatase 95, Total Protein 5.6L, Albumin 2.3L 05/10/17 05:05: Glucometer 183H Microbiology 05/07/17 Blood Culture - Preliminary, Resulted No growth 05/07/17 MRSA Screen - Final, Complete MRSA not isolated 05/07/17 Urine Culture - Final, Complete Presumptive Meli Glabrata Probable Actinomyces Assessment/Plan Assessment/Plan Assess & Plan/Chief Complaint sepsis. Pneumonia. UTI. Hypoglycemia. History of aspiration. PEG tube. Diabetes. Noncompliance history. . 07/10/16. Pneumonia due to aspiration. UTI. septic shock. Hypoglycemia. Diabetes. patient had modified barium swallow. Patient failed the test Patient has severe esophageal stricture Radiologist read it as severe stricture in the upper and midesophagus. Patient told she cannot eat or drink Patient has history of noncomplian Clinical Quality Measures DVT/VTE Risk/Contraindication: Risk Factor Score Per Nursin RFS Level Per Nursing on Admit: 4+=Very High RANDI RIBEIRO DO May 10, 2017 07:03
--- NOTE | 2017-05-10 07:10 | Pulmonary Progress Note ---
Subjective Time Seen by Provider: 07:09 Subjective/Events-last exam Pt is doing better she failed barium swallow. Exam Exam Vital Signs Date Time Temp Pulse Resp B/P (MAP) Pulse Ox O2 Delivery O2 Flow Rate FiO2 05/10/17 06:53 94 28 05/10/17 06:51 97 Nasal Cannula 2.00 05/10/17 04:08 98.0 80 18 122/69 98 Nasal Cannula 3.00 05/10/17 00:25 97.7 72 18 128/74 99 Nasal Cannula 3.00 05/09/17 20:22 97.0 80 16 122/68 96 Nasal Cannula 3.00 05/09/17 20:00 Vapotherm 3.00 05/09/17 16:08 96.7 70 18 94/64 98 Nasal Cannula 3.00 05/09/17 14:01 97 Nasal Cannula 3.00 05/09/17 14:00 97.9 72 20 96/65 96 Nasal Cannula 3.00 05/09/17 13:00 100/57 05/09/17 12:00 96 Vapotherm 3.00 05/09/17 12:00 102/59 05/09/17 11:43 98.6 67 24 104/58 98 Nasal Cannula 3.00 05/09/17 11:00 104/58 05/09/17 10:00 75 17 112/65 100 Nasal Cannula 3.00 05/09/17 09:00 86 30 104/62 99 Nasal Cannula 3.00 05/09/17 08:12 98 05/09/17 08:00 92 22 104/67 98 Nasal Cannula 3.00 05/09/17 08:00 91 20 111/73 96 Nasal Cannula 3.00 05/09/17 08:00 94 Vapotherm 3.00 General Appearance: No Apparent Distress, WD/WN HEENT: Normal ENT Inspection Neck: Normal Inspection Respiratory: No Accessory Muscle Use, No Respiratory Distress, Other ( congestion and chest, spitting up phlegm) Cardiovascular: Regular Rate, Rhythm Capillary Refill: Less Than 3 Seconds Gastrointestinal: non tender, soft Extremity: Normal Capillary Refill, Normal Inspection, No Pedal Edema Neurologic/Psychiatric: Alert, Oriented x3 Skin: Normal Color, Warm/Dry Results Lab Laboratory Tests 05/09/17 05:05 05/10/17 04:30 Assessment/Plan Assessment/Plan Pneumonia HCAP with acute respiratory failure -Vanco, and Zosyn -Add Diflucan -SVNs change to QID secondary to patient refusing treatments during the night. -Oxygen -BiPAP PRN Aspiration pneumonia secondary to severe esophagea stricture -Pt is NPO she does already have a PEG tube UTI - improving -IVF -Abx Hx of tracheostomy with respiratory failure secondary to spontaneous PTX and pneumonia Atelectasis Hypomagnesium -replace 232 Clinical Quality Measures DVT/VTE Risk/Contraindication: Risk Factor Score Per Nursin RFS Level Per Nursing on Admit: 4+=Very High AUDELIA JUSTICE DO May 10, 2017 07:10
--- NOTE | 2017-05-10 07:10 | Diagnostic Imaging Report ---
INDICATION: Hypoglycemia, shock. Portable chest 5:11 AM.? Right jugular central line tip projects over the SVC at the cavoatrial junction. There is an esophageal stent that crosses the GE junction. There are some hazy alveolar infiltrates in the periphery of the lower lungs. These have not appreciably changed from the previous day. IMPRESSION: Stable chest with some peripheral alveolar infiltrates in both lower lungs. Dictated by: Dictated on workstation # [id number]
[2017-05-10 08:00] VITALS: BP 124/72
[2017-05-10] MEDS: FLUCONAZOLE 100 MG/50 ML 50 ML IV SCH (08:33)
[2017-05-10] MEDS: HYDROcodone/APAP 7.5 MG/325 MG (LORTAB, LORCET PLUS) TABLET PO PRN ×2 (09:26→20:01)
[2017-05-10] MEDS: ALPRAZolam 0.25 MG (XANAX) TAB PO PRN ×2 (09:26→20:00)
[2017-05-10 12:00] VITALS: BP 129/72
[2017-05-10 16:00] VITALS: BP 137/73
[2017-05-10] MEDS: ACETAMINOPHEN 500 MG TAB (TYLENOL) PO PRN (16:08)
[2017-05-11] VITALS: BP 146/82
[2017-05-11] MEDS: PIPERACILLIN/TAZOBACTAM 4.5 GM/NS100 ML IVPB IV SCH ×6 (00:11→17:03)
[2017-05-11 05:40] LABS: BASOPHILS % (AUTO) 0 % (0-10); EOSINOPHILS # (AUTO) 0.3 10^3/uL (0.0-0.3); EOSINOPHILS % (AUTO) 3 % (0-10); LYMPHOCYTES # (AUTO) 1.8 X 10^3 (1.0-4.0); LYMPHOCYTES % (AUTO) 14 % (12-44); MEAN CORPUSCULAR HEMOGLOBIN 28 PG (25-34); MEAN CORPUSCULAR HGB CONC 31 G/DL (32-36); MEAN CORPUSCULAR VOLUME 91 FL (80-99); MEAN PLATELET VOLUME 9.6 FL (7.4-10.4); MONOCYTES # (AUTO) 0.5 X 10^3 (0.0-1.0); MONOCYTES % (AUTO) 4 % (0-12); NEUTROPHILS # (AUTO) 10.1 X 10^3 (1.8-7.8); NEUTROPHILS % (AUTO) 79 % (42-75); PLATELET COUNT 434 10^3/uL (130-400); RED BLOOD COUNT 3.39 10^6/uL (4.35-5.85); RED CELL DISTRIBUTION WIDTH 15.2 % (10.0-14.5); WHITE BLOOD COUNT 12.8 10^3/uL (4.3-11.0)
[2017-05-11 06:01] LABS: ALANINE AMINOTRANSFERASE 7 U/L (0-55); ALBUMIN 2.4 GM/DL (3.2-4.5); ANION GAP 10 MMOL/L (5-14); ASPARTATE AMINO TRANSFERASE 6 U/L (5-34); BILIRUBIN,TOTAL 0.2 MG/DL (0.1-1.0); BLOOD UREA NITROGEN 7 MG/DL (7-18); BUN/CREATININE RATIO 13; CALCIUM 8.2 MG/DL (8.5-10.1); CARBON DIOXIDE 25 MMOL/L (21-32); CHLORIDE 102 MMOL/L (98-107); CREATININE SERUM 0.55 MG/DL (0.60-1.30); GFR ESTIMATED > 60; GLUCOSE 313 MG/DL (70-105); MAGNESIUM 1.3 MG/DL (1.8-2.4); PHOSPHORUS 1.5 MG/DL (2.3-4.7); SODIUM 137 MMOL/L (135-145); TOTAL PROTEIN 5.9 GM/DL (6.4-8.2)
[2017-05-11] MEDS: CATHETER FLUSH 10 ML SYR IV SCH ×3 (06:12→21:24)
[2017-05-11] MEDS: ENOXAPARIN 40 MG/0.4 ML (LOVENOX) SYR SC SCH (06:12)
[2017-05-11] MEDS: inSUlin (REGULAR) HUMAN 1 UNIT/0.01 ML (CHARGE PER UNIT) SC SCH ×4 (06:15→21:13)
[2017-05-11] MEDS: RT-ALBUTEROL/IPRATROPIUM 3 ML (DUONEB) VIAL INH SCH ×4 (07:06→19:00)
[2017-05-11 08:00] VITALS: BP 106/70
[2017-05-11] MEDS: ALPRAZolam 0.25 MG (XANAX) TAB PO PRN ×2 (08:19→21:24)
[2017-05-11] MEDS: HYDROcodone/APAP 7.5 MG/325 MG (LORTAB, LORCET PLUS) TABLET PO PRN ×2 (08:20→21:24)
[2017-05-11] MEDS: NS IV 1000 ML 1,000 ML IV SCH (08:30)
--- NOTE | 2017-05-11 08:54 | Diagnostic Imaging Report ---
INDICATION: Pneumonia, UTI, sepsis, hypoglycemia. Comparison made with prior examination from 05/10/2017. FINDINGS: There is cardiomegaly. There is venous congestion. There are bibasal infiltrates left greater than right. There is no pneumothorax The mediastinum is unremarkable. There is a right internal jugular central venous catheter in place. IMPRESSION: Bibasal infiltrates left greater than right. Cardiomegaly and mild central pulmonary venous congestion. Dictated by: Dictated on workstation # [id number]
[2017-05-11] MEDS: FLUCONAZOLE 100 MG/50 ML 50 ML IV SCH (09:55)
--- NOTE | 2017-05-11 11:52 | Progress Note-Hospitalist ---
Standard Progress Note Progress Notes/Assess & Plan Date Seen 05/11/17 Time Seen by Provider: 11:47 Assess & Plan/Chief Complaint The patient is a 41-year-old white female patient of Dr. Gaitan. She is a current resident at [facility]. She is from [facility]. She apparently suffered an event which she says began with a collapsed lung and then caused her to have a prolonged period on a ventilator including tracheostomy. She is hoping to have improved enough to go home soon. At her admission she was apparently in a wheelchair at the facility smoking a cigarette and passed out. This proved to be secondary to hypoglycemia. She was brought to the emergency room and found to have in addition to the hypoglycemia a urinary tract infection and a white count of 25,300. She was rated as septic shock. She is improved rather remarkably and is alert and oriented at my visit. Physical exam: She answers questions quickly. Her speech seems somewhat slurred. Lungs show distant breath sounds and shallow respirations. She is very thin. CV is regular. Abdomen is scaphoid. There is a feeding tube in the left epigastrium. Impression: 1.decreased mental status secondary to hypoglycemia. 2.urine and sputum growing Meli species. 3.diabetes mellitus 4.granulocytosis. 5.recent past history of pneumothorax and pulmonary failure with prolonged period of time on the ventilator. Plan: It is noted that the peak white count was 25,300. Most recent is 12,800. Will continue fluids and antibiotics as at present. Labs Laboratory Tests 05/10/17 04:30 05/11/17 05:30 MYKEL POLANCO MD May 11, 2017 11:52
[2017-05-11] MEDS: ACETAMINOPHEN 500 MG TAB (TYLENOL) PO PRN (14:00)
[2017-05-11 16:38] VITALS: BP 119/67
[2017-05-12] VITALS: BP_SYST 111; BP_SYST 127; BP_DIAS 61; BP_DIAS 70; BP_DIAS 78
[2017-05-12] MEDS: PIPERACILLIN/TAZOBACTAM 4.5 GM/NS100 ML IVPB IV SCH ×6 (00:15→17:23)
[2017-05-12 04:00] VITALS: BP 90/55
[2017-05-12] MEDS: CATHETER FLUSH 10 ML SYR IV SCH ×3 (06:30→21:27)
[2017-05-12] MEDS: ENOXAPARIN 40 MG/0.4 ML (LOVENOX) SYR SC SCH (06:33)
[2017-05-12] MEDS: inSUlin (REGULAR) HUMAN 1 UNIT/0.01 ML (CHARGE PER UNIT) SC SCH ×4 (06:33→21:27)
[2017-05-12 06:50] LABS: BASOPHILS % (AUTO) 0 % (0-10); EOSINOPHILS # (AUTO) 0.3 10^3/uL (0.0-0.3); EOSINOPHILS % (AUTO) 3 % (0-10); LYMPHOCYTES # (AUTO) 1.6 X 10^3 (1.0-4.0); LYMPHOCYTES % (AUTO) 19 % (12-44); MEAN CORPUSCULAR HEMOGLOBIN 28 PG (25-34); MEAN CORPUSCULAR HGB CONC 31 G/DL (32-36); MEAN CORPUSCULAR VOLUME 89 FL (80-99); MEAN PLATELET VOLUME 9.7 FL (7.4-10.4); MONOCYTES # (AUTO) 0.6 X 10^3 (0.0-1.0); MONOCYTES % (AUTO) 7 % (0-12); NEUTROPHILS % (AUTO) 71 % (42-75); PLATELET COUNT 442 10^3/uL (130-400); RED BLOOD COUNT 3.58 10^6/uL (4.35-5.85); RED CELL DISTRIBUTION WIDTH 15.1 % (10.0-14.5); WHITE BLOOD COUNT 8.5 10^3/uL (4.3-11.0)
[2017-05-12] MEDS: RT-ALBUTEROL/IPRATROPIUM 3 ML (DUONEB) VIAL INH SCH ×4 (07:00→19:00)
[2017-05-12 07:14] LABS: ALANINE AMINOTRANSFERASE 10 U/L (0-55); ALBUMIN 2.5 GM/DL (3.2-4.5); ANION GAP 14 MMOL/L (5-14); ASPARTATE AMINO TRANSFERASE 12 U/L (5-34); BILIRUBIN,TOTAL 0.3 MG/DL (0.1-1.0); BLOOD UREA NITROGEN 3 MG/DL (7-18); BUN/CREATININE RATIO 6; CALCIUM 8.3 MG/DL (8.5-10.1); CARBON DIOXIDE 26 MMOL/L (21-32); CHLORIDE 102 MMOL/L (98-107); CREATININE SERUM 0.47 MG/DL (0.60-1.30); GFR ESTIMATED > 60; GLUCOSE 238 MG/DL (70-105); MAGNESIUM 1.4 MG/DL (1.8-2.4); PHOSPHORUS 2.3 MG/DL (2.3-4.7); POTASSIUM 3.9 MMOL/L (3.6-5.0); SODIUM 142 MMOL/L (135-145); TOTAL PROTEIN 6.1 GM/DL (6.4-8.2)
[2017-05-12 07:53] VITALS: BP 121/81
[2017-05-12] MEDS: FLUCONAZOLE 100 MG/50 ML 50 ML IV SCH (09:43)
[2017-05-12] MEDS: NS IV 1000 ML 1,000 ML IV SCH (09:44)
--- NOTE | 2017-05-12 09:49 | Diagnostic Imaging Report ---
INDICATION: Sepsis. COMPARISON: 05/11/2017 FINDINGS: Upright frontal view of the chest is obtained. Right IJ line is unchanged. Heart size and pulmonary vasculature appear stable. There is no pneumothorax. There are persistent bilateral basilar infiltrates which appear minimally worse on the right and minimally improved on the left when compared to the prior study. The upper lungs remain fairly clear. Large esophageal stent is unchanged. IMPRESSION: Persistent bilateral alveolar infiltrates minimally worse on the right, minimally improvement on the left compared to the prior study. Mild cardiomegaly with central venous congestion appears stable. Dictated by: Dictated on workstation # [id number]
[2017-05-12 16:37] VITALS: BP 138/74
[2017-05-13] VITALS: BP 132/75
[2017-05-13] MEDS: PIPERACILLIN/TAZOBACTAM 4.5 GM/NS100 ML IVPB IV SCH ×6 (00:19→16:47)
[2017-05-13] MEDS: NS IV 1000 ML 1,000 ML IV SCH (05:51)
[2017-05-13] MEDS: inSUlin (REGULAR) HUMAN 1 UNIT/0.01 ML (CHARGE PER UNIT) SC SCH ×4 (05:51→21:23)
[2017-05-13 06:07] LABS: BASOPHILS % (AUTO) 0 % (0-10); EOSINOPHILS # (AUTO) 0.2 10^3/uL (0.0-0.3); EOSINOPHILS % (AUTO) 3 % (0-10); LYMPHOCYTES # (AUTO) 1.8 X 10^3 (1.0-4.0); LYMPHOCYTES % (AUTO) 34 % (12-44); MEAN CORPUSCULAR HEMOGLOBIN 28 PG (25-34); MEAN CORPUSCULAR HGB CONC 31 G/DL (32-36); MEAN CORPUSCULAR VOLUME 90 FL (80-99); MEAN PLATELET VOLUME 9.8 FL (7.4-10.4); MONOCYTES # (AUTO) 0.5 X 10^3 (0.0-1.0); MONOCYTES % (AUTO) 9 % (0-12); NEUTROPHILS # (AUTO) 2.8 X 10^3 (1.8-7.8); NEUTROPHILS % (AUTO) 54 % (42-75); PLATELET COUNT 448 10^3/uL (130-400); RED BLOOD COUNT 3.42 10^6/uL (4.35-5.85); RED CELL DISTRIBUTION WIDTH 15.5 % (10.0-14.5); WHITE BLOOD COUNT 5.2 10^3/uL (4.3-11.0)
[2017-05-13 06:19] LABS: ALANINE AMINOTRANSFERASE 7 U/L (0-55); ALBUMIN 2.4 GM/DL (3.2-4.5); ANION GAP 16 MMOL/L (5-14); ASPARTATE AMINO TRANSFERASE 9 U/L (5-34); BILIRUBIN,TOTAL 0.3 MG/DL (0.1-1.0); BLOOD UREA NITROGEN 5 MG/DL (7-18); BUN/CREATININE RATIO 9; CALCIUM 8.7 MG/DL (8.5-10.1); CARBON DIOXIDE 24 MMOL/L (21-32); CHLORIDE 102 MMOL/L (98-107); CREATININE SERUM 0.53 MG/DL (0.60-1.30); GFR ESTIMATED > 60; GLUCOSE 217 MG/DL (70-105); MAGNESIUM 1.4 MG/DL (1.8-2.4); PHOSPHORUS 2.7 MG/DL (2.3-4.7); POTASSIUM 3.7 MMOL/L (3.6-5.0); SODIUM 142 MMOL/L (135-145)
[2017-05-13] MEDS: ENOXAPARIN 40 MG/0.4 ML (LOVENOX) SYR SC SCH (06:33)
--- NOTE | 2017-05-13 06:36 | Pulmonary Progress Note ---
Exam Exam Vital Signs Date Time Temp Pulse Resp B/P (MAP) Pulse Ox O2 Delivery O2 Flow Rate FiO2 05/13/17 00:00 97.0 66 12 132/75 97 Nasal Cannula 2.00 05/12/17 20:15 Nasal Cannula 2.00 05/12/17 19:03 Nasal Cannula 2.00 05/12/17 16:37 97.9 83 18 138/74 94 Nasal Cannula 2.00 05/12/17 10:38 Nasal Cannula 2.00 05/12/17 09:00 Nasal Cannula 2.00 05/12/17 07:53 99.4 83 16 121/81 95 Nasal Cannula 2.00 General Appearance: No Apparent Distress, WD/WN HEENT: Normal ENT Inspection Neck: Normal Inspection Respiratory: No Accessory Muscle Use, No Respiratory Distress, Other ( congestion and chest, spitting up phlegm) Cardiovascular: Regular Rate, Rhythm Capillary Refill: Less Than 3 Seconds Gastrointestinal: non tender, soft Extremity: Normal Capillary Refill, Normal Inspection, No Pedal Edema Neurologic/Psychiatric: Alert, Oriented x3 Skin: Normal Color, Warm/Dry Results Lab Laboratory Tests 05/12/17 06:30 05/13/17 05:45 Assessment/Plan Assessment/Plan Pneumonia HCAP with acute respiratory failure -Zosyn -SVNs change to QID secondary to patient refusing treatments during the night. -Oxygen -BiPAP PRN Aspiration pneumonia secondary to severe esophagea stricture -Pt is NPO she does already have a PEG tube UTI - improving -IVF -Abx Hx of tracheostomy with respiratory failure secondary to spontaneous PTX and pneumonia Atelectasis Hypomagnesium -replace 232 Clinical Quality Measures DVT/VTE Risk/Contraindication: Risk Factor Score Per Nursin RFS Level Per Nursing on Admit: 4+=Very High AUDELIA JUSTICE DO May 13, 2017 06:36
--- NOTE | 2017-05-13 07:13 | Diagnostic Imaging Report ---
INDICATION: Pneumonia. COMPARISON: 05/12/2017. FINDINGS: Single frontal radiographic view of the chest was obtained and demonstrates stable cardiac silhouette and pulmonary vasculature. Right internal jugular central venous catheter is again identified with tip in the low SVC. Lungs continue to show patchy alveolar opacities within the bilateral lower lung leyva. Overall, aeration is stable compared to prior exam. Indwelling esophageal stent is noted. There is no large effusion or pneumothorax. Bony structures show no gross acute abnormalities. IMPRESSION: Stable exam of the chest showing patchy alveolar opacities within both lower lung leyva concerning for pneumonia. Continued followup is recommended. Dictated by: Dictated on workstation # [id number]
[2017-05-13] MEDS: CATHETER FLUSH 10 ML SYR IV SCH ×3 (07:35→21:29)
--- NOTE | 2017-05-13 07:47 | Progress Note (SOAP) ---
Subjective Time Seen by Provider: 07:40 Subjective/Events-last exam patient refuses Jevity through PEG tube. Patient refuses breathing treatments. Patient breathing much better. Patient get psych consult and delinquency prevention social worker involved. Patient noncompliant and does things her way Objective Exam Vital Signs Date Time Temp Pulse Resp B/P (MAP) Pulse Ox O2 Delivery O2 Flow Rate FiO2 05/13/17 00:00 97.0 66 12 132/75 97 Nasal Cannula 2.00 05/12/17 20:15 Nasal Cannula 2.00 05/12/17 19:03 Nasal Cannula 2.00 05/12/17 16:37 97.9 83 18 138/74 94 Nasal Cannula 2.00 05/12/17 10:38 Nasal Cannula 2.00 05/12/17 09:00 Nasal Cannula 2.00 05/12/17 07:53 99.4 83 16 121/81 95 Nasal Cannula 2.00 Capillary Refill : Less Than 3 SecondsLess Than 3 Seconds General Appearance: No Apparent Distress, WD/WN HEENT: Normal ENT Inspection Neck: Full Range of Motion, Normal Inspection Respiratory: Wheezing Cardiovascular: Regular Rate, Rhythm, No Murmur Gastrointestinal: non tender, soft Results Lab Laboratory Tests 05/13/17 05:45 Laboratory Tests 05/12/17 11:11: Glucometer 131H 05/12/17 16:15: Glucometer 149H 05/12/17 20:56: Glucometer 231H 05/13/17 05:20: Glucometer 196H 05/13/17 05:45: White Blood Count 5.2, Red Blood Count 3.42L, Hemoglobin 9.4L, Hematocrit 31L, Mean Corpuscular Volume 90, Mean Corpuscular Hemoglobin 28, Mean Corpuscular Hemoglobin Concent 31L, Red Cell Distribution Width 15.5H, Platelet Count 448H, Mean Platelet Volume 9.8, Neutrophils (%) (Auto) 54, Lymphocytes (%) (Auto) 34, Monocytes (%) (Auto) 9, Eosinophils (%) (Auto) 3, Basophils (%) (Auto) 0, Neutrophils # (Auto) 2.8, Lymphocytes # (Auto) 1.8, Monocytes # (Auto) 0.5, Eosinophils # (Auto) 0.2, Basophils # (Auto) 0.0, Sodium Level 142, Potassium Level 3.7, Chloride Level 102, Carbon Dioxide Level 24, Anion Gap 16H, Blood Urea Nitrogen 5L, Creatinine 0.53L, Estimat Glomerular Filtration Rate > 60, BUN /Creatinine Ratio 9, Glucose Level 217H, Calcium Level 8.7, Phosphorus Level 2.7 , Magnesium Level 1.4L, Total Bilirubin 0.3, Aspartate Amino Transf (AST/SGOT) 9 , Alanine Aminotransferase (ALT/SGPT) 7, Alkaline Phosphatase 89, Total Protein 6.0L, Albumin 2.4L Microbiology 05/07/17 Blood Culture - Final, Complete No growth 05/07/17 MRSA Screen - Final, Complete MRSA not isolated 05/07/17 Urine Culture - Final, Complete Presumptive Meli Glabrata Probable Actinomyces Radiology NAME: AUNG DANIEL [facility] REC#: [id number] PT STATUS: ADM IN : 1975 PHYSICIAN: AUDELIA JUSTICE DO ADMIT DATE: 05/07/17 Draft Date of Exam:05/13/17 CHEST 1 VIEW, AP/PA ONLY INDICATION: Pneumonia. COMPARISON: 05/12/2017. FINDINGS: Single frontal radiographic view of the chest was obtained and demonstrates stable cardiac silhouette and pulmonary vasculature. Right internal jugular central venous catheter is again identified with tip in the low SVC. Lungs continue to show patchy alveolar opacities within the bilateral lower lung leyva. Overall, aeration is stable compared to prior exam. Indwelling esophageal stent is noted. There is no large effusion or pneumothorax. Bony structures show no gross acute abnormalities. IMPRESSION: Stable exam of the chest showing patchy alveolar opacities within both lower lung leyva concerning for pneumonia. Continued followup is recommended. Dictated on workstation # [id number] Dict: 05/13/1707 Trans: 05/13/17 0713 [facility] [id number] Interpreted by: POLY ORTIZ MD Electronically signed by: Assessment/Plan Assessment/Plan Assess & Plan/Chief Complaint sepsis. Pneumonia. UTI. Hypoglycemia. History of aspiration. PEG tube. Diabetes. Noncompliance history. . 07/10/16. Pneumonia due to aspiration. UTI. septic shock. Hypoglycemia. Diabetes. patient had modified barium swallow. Patient failed the test Patient has severe esophageal stricture Radiologist read it as severe stricture in the upper and midesophagus. Patient told she cannot eat or drink Patient has history of noncompliance. . 05/13/17. Patient refuses Jevity and breathing treatments. Explained to patient that she cannot take food orally. Aspiration pneumonia. UTI. Sepsis. Hypoglycemia. Diabetes. Clinical Quality Measures DVT/VTE Risk/Contraindication: Risk Factor Score Per Nursin RFS Level Per Nursing on Admit: 4+=Very High RANDI RIBEIRO DO May 13, 2017 07:47
[2017-05-13] MEDS: FLUCONAZOLE 100 MG/50 ML 50 ML IV SCH (07:56)
[2017-05-13 08:00] VITALS: BP 118/56
[2017-05-13] MEDS: RT-ALBUTEROL/IPRATROPIUM 3 ML (DUONEB) VIAL INH SCH ×4 (08:11→18:58)
[2017-05-13] MEDS: HYDROcodone/APAP 7.5 MG/325 MG (LORTAB, LORCET PLUS) TABLET PO PRN ×2 (09:49→22:10)
[2017-05-13 16:51] VITALS: BP 117/70
[2017-05-13] MEDS: ACETAMINOPHEN 500 MG TAB (TYLENOL) PO PRN (17:02)
[2017-05-13] MEDS: ALPRAZolam 0.25 MG (XANAX) TAB PO PRN (21:34)
[2017-05-14] MEDS: NS IV 1000 ML 1,000 ML IV SCH ×2 (00:30→08:55)
[2017-05-14] MEDS: PIPERACILLIN/TAZOBACTAM 4.5 GM/NS100 ML IVPB IV SCH ×4 (00:30→08:55)
[2017-05-14 00:35] VITALS: BP 124/63
[2017-05-14 04:56] LABS: BASOPHILS % (AUTO) 0 % (0-10); EOSINOPHILS # (AUTO) 0.2 10^3/uL (0.0-0.3); EOSINOPHILS % (AUTO) 3 % (0-10); LYMPHOCYTES # (AUTO) 1.9 X 10^3 (1.0-4.0); LYMPHOCYTES % (AUTO) 25 % (12-44); MEAN CORPUSCULAR HEMOGLOBIN 28 PG (25-34); MEAN CORPUSCULAR HGB CONC 31 G/DL (32-36); MEAN CORPUSCULAR VOLUME 90 FL (80-99); MEAN PLATELET VOLUME 9.4 FL (7.4-10.4); MONOCYTES # (AUTO) 0.4 X 10^3 (0.0-1.0); MONOCYTES % (AUTO) 5 % (0-12); NEUTROPHILS % (AUTO) 67 % (42-75); PLATELET COUNT 442 10^3/uL (130-400); RED BLOOD COUNT 3.56 10^6/uL (4.35-5.85); RED CELL DISTRIBUTION WIDTH 15.4 % (10.0-14.5); WHITE BLOOD COUNT 7.6 10^3/uL (4.3-11.0)
[2017-05-14 05:16] LABS: ALANINE AMINOTRANSFERASE 9 U/L (0-55); ALBUMIN 2.6 GM/DL (3.2-4.5); ANION GAP 13 MMOL/L (5-14); ASPARTATE AMINO TRANSFERASE 11 U/L (5-34); BILIRUBIN,TOTAL 0.2 MG/DL (0.1-1.0); BLOOD UREA NITROGEN 8 MG/DL (7-18); BUN/CREATININE RATIO 16; CALCIUM 8.7 MG/DL (8.5-10.1); CARBON DIOXIDE 28 MMOL/L (21-32); CHLORIDE 98 MMOL/L (98-107); CREATININE SERUM 0.51 MG/DL (0.60-1.30); GFR ESTIMATED > 60; GLUCOSE 242 MG/DL (70-105); MAGNESIUM 1.5 MG/DL (1.8-2.4); PHOSPHORUS 2.7 MG/DL (2.3-4.7); POTASSIUM 3.8 MMOL/L (3.6-5.0); SODIUM 139 MMOL/L (135-145); TOTAL PROTEIN 6.3 GM/DL (6.4-8.2)
[2017-05-14] MEDS: ENOXAPARIN 40 MG/0.4 ML (LOVENOX) SYR SC SCH (06:24)
[2017-05-14] MEDS: inSUlin (REGULAR) HUMAN 1 UNIT/0.01 ML (CHARGE PER UNIT) SC SCH ×2 (06:24→11:20)
[2017-05-14] MEDS: CATHETER FLUSH 10 ML SYR IV SCH (06:24)
[2017-05-14] MEDS: RT-ALBUTEROL/IPRATROPIUM 3 ML (DUONEB) VIAL INH SCH ×2 (07:00→10:07)
--- NOTE | 2017-05-14 07:55 | Progress Note (SOAP) ---
Subjective Time Seen by Provider: 07:50 Subjective/Events-last exam patient doing better today discharge back to the care home. Patient wants to go home with her children. Children know they can take care of her. Patient to be nothing by mouth. Patient to be fed through the PEG tube. Pneumonia with ARF. Aspiration pneumonia. Severe esophageal stricture. Diabetes. Atelectasis. Hypomagnesemia. environmental services tech involved for placement Objective Exam Vital Signs Date Time Temp Pulse Resp B/P (MAP) Pulse Ox O2 Delivery O2 Flow Rate FiO2 05/14/17 07:00 Nasal Cannula 2.00 05/14/17 00:35 97.0 74 20 124/63 96 Nasal Cannula 3.00 05/13/17 21:00 Nasal Cannula 2.00 05/13/17 18:59 93 Nasal Cannula 2.00 05/13/17 16:51 97.5 78 18 117/70 98 Nasal Cannula 2.00 05/13/17 08:00 96.7 65 18 118/56 94 Nasal Cannula 2.00 Capillary Refill : Less Than 3 SecondsLess Than 3 Seconds General Appearance: No Apparent Distress, WD/WN HEENT: Normal ENT Inspection Neck: Full Range of Motion, Normal Inspection Respiratory: Chest Non Tender, Normal Breath Sounds, No Accessory Muscle Use, No Respiratory Distress Cardiovascular: Regular Rate, Rhythm, No Murmur Gastrointestinal: soft Results Lab Laboratory Tests 05/14/17 04:45 Laboratory Tests 05/13/17 11:33: Glucometer 216H 05/13/17 16:53: Glucometer 199H 05/13/17 20:33: Glucometer 170H 05/14/17 04:45: White Blood Count 7.6, Red Blood Count 3.56L, Hemoglobin 9.8L, Hematocrit 32L, Mean Corpuscular Volume 90, Mean Corpuscular Hemoglobin 28, Mean Corpuscular Hemoglobin Concent 31L, Red Cell Distribution Width 15.4H, Platelet Count 442H, Mean Platelet Volume 9.4, Neutrophils (%) (Auto) 67, Lymphocytes (%) (Auto) 25, Monocytes (%) (Auto) 5, Eosinophils (%) (Auto) 3, Basophils (%) (Auto) 0, Neutrophils # (Auto) 5.0, Lymphocytes # (Auto) 1.9, Monocytes # (Auto) 0.4, Eosinophils # (Auto) 0.2, Basophils # (Auto) 0.0, Sodium Level 139, Potassium Level 3.8, Chloride Level 98, Carbon Dioxide Level 28, Anion Gap 13, Blood Urea Nitrogen 8, Creatinine 0.51L, Estimat Glomerular Filtration Rate > 60, BUN/ Creatinine Ratio 16, Glucose Level 242H, Calcium Level 8.7, Phosphorus Level 2.7 , Magnesium Level 1.5L, Total Bilirubin 0.2, Aspartate Amino Transf (AST/SGOT) 11, Alanine Aminotransferase (ALT/SGPT) 9, Alkaline Phosphatase 100, Total Protein 6.3L, Albumin 2.6L 05/14/17 05:23: Glucometer 252H Microbiology 05/07/17 Blood Culture - Final, Complete No growth 05/07/17 MRSA Screen - Final, Complete MRSA not isolated 05/07/17 Urine Culture - Final, Complete Presumptive Meli Glabrata Probable Actinomyces Assessment/Plan Assessment/Plan Assess & Plan/Chief Complaint sepsis. Pneumonia. UTI. Hypoglycemia. History of aspiration. PEG tube. Diabetes. Noncompliance history. . 07/10/16. Pneumonia due to aspiration. UTI. septic shock. Hypoglycemia. Diabetes. patient had modified barium swallow. Patient failed the test Patient has severe esophageal stricture Radiologist read it as severe stricture in the upper and midesophagus. Patient told she cannot eat or drink Patient has history of noncompliance. . 05/13/17. Patient refuses Jevity and breathing treatments. Explained to patient that she cannot take food orally. Aspiration pneumonia. UTI. Sepsis. Hypoglycemia. Diabetes.area . Patient to be discharged today. Patient to go back to care home. 05/14/17. Aspiration pneumonia. Sepsis. Hypoglycemia. Diabetes. Hypomagnesemia. Atelectasis. Severe esophageal stricture. 2 office in one week Clinical Quality Measures DVT/VTE Risk/Contraindication: Risk Factor Score Per Nursin RFS Level Per Nursing on Admit: 4+=Very High RANDI RIBEIRO DO May 14, 2017 07:55
[2017-05-14 08:00] VITALS: BP 139/62
--- NOTE | 2017-05-14 08:15 | Diagnostic Imaging Report ---
INDICATION: Pneumonia. Comparison made with prior examination 05/13/2017. FINDINGS: There is cardiomegaly and some mild venous congestion. There are patchy bibasilar atelectasis and/or pneumonitis. There is no pleural effusion or pneumothorax. Mediastinum is unremarkable. There is a right internal jugular central venous catheter which has its tip in the superior vena cava. IMPRESSION: Patchy bibasilar atelectasis and/or pneumonitis, left greater than right. Cardiomegaly and minimal central pulmonary venous congestion. Dictated by: Dictated on workstation # [id number]
[2017-05-14] MEDS: MAGNESIUM 1 GM/100 ML IVPB 100 ML IV SCH ×2 (08:57→09:38)
[2017-05-14] MEDS: FLUCONAZOLE 100 MG/50 ML 50 ML IV SCH (08:57)
[2017-05-14 09:27] LABS: BILIRUBIN,URINE NEGATIVE (NEGATIVE); KETONES,URINE 3+ (NEGATIVE); LEUKOCYTE ESTERASE ,URINE 3+ (NEGATIVE); NITRITE,URINE NEGATIVE (NEGATIVE); PH,URINE 7 (5-9); PROTEIN,URINE NEGATIVE (NEGATIVE); UROBILINOGEN,URINE NORMAL (NORMAL)
[2017-05-14 09:56] LABS: WBC,URINE >100 /HPF
[2017-05-14 09:57] LABS: SQUAMOUS EPITHELIAL CELL,UR >50 /HPF; YEAST,URINE LARGE /HPF
--- NOTE | 2017-05-15 08:20 | Discharge Summary ---
Diagnosis/Chief Complaint Date of Admission May 07, 2017 at 20:15 Date of Discharge May 14, 2017 at 12:33 Discharge Date: May 14, 2017 Discharge Time: 08:15 Admission Diagnosis Admission Diagnosis pneumonia. UTI. Septic shock. Hypoglycemia. Hypotension. Syncope. Hypomagnesemia. Leukocytosis but did received Solu-Medrol Discharge Diagnosis aspiration pneumonia. Leukocytosis. Anemia. Noncompliance. Diabetes. 2 infection with Meli. Hypoglycemia. Unresponsive. Sepsis. Hypotension. Hypomagnesemia. Severe esophageal dysphagia Reason Hospital Visit patient in a resident of a halfway. Patient came from [facility]. Patient smoking and passed out in a wheelchair. Pulse ox was in the 70s. EMS called Patient got blood sugar 372 and given D 50 percent. Blood pressure in emergency room 70/50. Temperature 95.9. Patient had septic shock. UTI. Pneumonia and acute respiratory failure. Probable aspiration pneumonia. Hypotension. Hypoglycemia. Hypoglycemia. Patient admitted to ICU Discharge Summary Procedures modified barium swallow was abnormal due to severe esophageal dysphagia Consultations pulmonology. Speech therapy Discharge Physical Examination Allergies: Coded Allergies: Sulfa (Sulfonamide Antibiotics) (Verified Allergy, Mild, Rash, 07/12/16) Vitals & I&Os Vital Signs Date Time Temp Pulse Resp B/P (MAP) Pulse Ox O2 Delivery O2 Flow Rate FiO2 05/14/17 12:33 05/14/17 09:07 Nasal Cannula 2.00 05/14/17 08:00 96.6 68 18 98 05/10/17 06:53 28 Hospital Course Labs (last 24 hrs) Laboratory Tests 05/07/17 18:13: White Blood Count 7.8, Red Blood Count 4.00L, Hemoglobin 11.2L, Hematocrit 36, Mean Corpuscular Volume 90, Mean Corpuscular Hemoglobin 28, Mean Corpuscular Hemoglobin Concent 31L, Red Cell Distribution Width 15.5H, Platelet Count 528H, Mean Platelet Volume 10.1, Neutrophils (%) (Auto) 69, Lymphocytes (%) (Auto) 22 , Monocytes (%) (Auto) 6, Eosinophils (%) (Auto) 3, Basophils (%) (Auto) 0, Neutrophils # (Auto) 5.4, Lymphocytes # (Auto) 1.7, Monocytes # (Auto) 0.5, Eosinophils # (Auto) 0.2, Basophils # (Auto) 0.0, Prothrombin Time 14.0, INR Comment 1.1, Activated Partial Thromboplast Time 30, Sodium Level 139, Potassium Level 3.7, Chloride Level 100, Carbon Dioxide Level 30, Anion Gap 9, Blood Urea Nitrogen 14, Creatinine 0.58L, Estimat Glomerular Filtration Rate > 60, BUN/Creatinine Ratio 24, Glucose Level 262H, Lactic Acid Level 0.67, Calcium Level 8.6, Magnesium Level 1.6L, Total Bilirubin 0.2, Aspartate Amino Transf (AST/SGOT) 12, Alanine Aminotransferase (ALT/SGPT) 9, Alkaline Phosphatase 121, Troponin I < 0.30, Total Protein 7.2, Albumin 3.0L 05/07/17 18:29: Glucometer 168H 05/07/17 18:45: Blood Gas Puncture Site LEFT BRACHIAL, Blood Gas Patient Temperature 96.5, Arterial Blood pH 7.42, Arterial Blood Partial Pressure CO2 48H, Arterial Blood Partial Pressure O2 57L, Arterial Blood HCO3 31H, Arterial Blood Total CO2 32.5H , Arterial Blood Oxygen Saturation 91L, Arterial Blood Base Excess 6.3H, Elie Test NA, Blood Gas Ventilator Setting NO, Blood Gas Inspired Oxygen 10L 05/07/17 19:18: Urine Color YELLOW, Urine Clarity VERY CLOUDYH, Urine pH 6, Urine Specific Sheldon 1.020, Urine Protein 2+H, Urine Glucose (UA) 1+H, Urine Ketones NEGATIVE , Urine Nitrite NEGATIVE, Urine Bilirubin NEGATIVE, Urine Urobilinogen 1, Urine Leukocyte Esterase 3+H, Urine RBC (Auto) 3+H, Urine RBC 5-10H, Urine WBC 10-25H , Urine Squamous Epithelial Cells .50, Urine Crystals NONE, Urine Bacteria LARGEH, Urine Casts NONE, Urine Mucus NEGATIVE, Urine Yeast LARGEH, Urine Culture Indicated YES 05/08/17 04:30: White Blood Count 25.3H, Red Blood Count 3.63L, Hemoglobin 10.2L, Hematocrit 33L , Mean Corpuscular Volume 91, Mean Corpuscular Hemoglobin 28, Mean Corpuscular Hemoglobin Concent 31L, Red Cell Distribution Width 15.7H, Platelet Count 491H, Mean Platelet Volume 10.5H, Neutrophils (%) (Auto) 91H, Lymphocytes (%) (Auto) 6L, Monocytes (%) (Auto) 3, Eosinophils (%) (Auto) 0, Basophils (%) (Auto) 0, Neutrophils # (Auto) 23.1H, Lymphocytes # (Auto) 1.4, Monocytes # (Auto) 0.7, Eosinophils # (Auto) 0.0, Basophils # (Auto) 0.0, Neutrophils % (Manual) 78, Lymphocytes % (Manual) 2, Monocytes % (Manual) 2, Eosinophils % (Manual) 0, Basophils % (Manual) 0, Band Neutrophils 16, Reactive Lymphocytes 2, Hypochromasia MODERATE, Anisocytosis SLIGHT, Macrocytosis SLIGHT, Sodium Level 141, Potassium Level 3.8, Chloride Level 109H, Carbon Dioxide Level 23, Anion Gap 9, Blood Urea Nitrogen 7, Creatinine 0.52L, Estimat Glomerular Filtration Rate > 60, BUN/Creatinine Ratio 13, Glucose Level 229H, Lactic Acid Level 0.78, Calcium Level 7.7L, Phosphorus Level 2.6, Magnesium Level 1.4L, Total Bilirubin 0.3, Aspartate Amino Transf (AST/SGOT) 11, Alanine Aminotransferase (ALT/SGPT) 8 , Alkaline Phosphatase 94, Total Protein 5.2L, Albumin 2.4L 05/08/17 11:15: Glucometer 184H 05/08/17 15:40: Glucometer 204H 05/08/17 21:12: Glucometer 99 05/09/17 05:05: White Blood Count 24.3H, Red Blood Count 3.60L, Hemoglobin 10.1L, Hematocrit 33L , Mean Corpuscular Volume 90, Mean Corpuscular Hemoglobin 28, Mean Corpuscular Hemoglobin Concent 31L, Red Cell Distribution Width 15.6H, Platelet Count 453H, Mean Platelet Volume 9.7, Neutrophils (%) (Auto) 91H, Lymphocytes (%) (Auto) 5L , Monocytes (%) (Auto) 4, Eosinophils (%) (Auto) 0, Basophils (%) (Auto) 0, Neutrophils # (Auto) 22.0H, Lymphocytes # (Auto) 1.3, Monocytes # (Auto) 0.9, Eosinophils # (Auto) 0.1, Basophils # (Auto) 0.0, Sodium Level 136, Potassium Level 3.9, Chloride Level 104, Carbon Dioxide Level 20L, Anion Gap 12, Blood Urea Nitrogen 5L, Creatinine 0.53L, Estimat Glomerular Filtration Rate > 60, BUN /Creatinine Ratio 9, Glucose Level 241H, Calcium Level 8.2L, Phosphorus Level 1.5L, Magnesium Level 1.3L, Total Bilirubin 0.4, Aspartate Amino Transf (AST/ SGOT) 11, Alanine Aminotransferase (ALT/SGPT) 8, Alkaline Phosphatase 111, B- Type Natriuretic Peptide 155.6H, Total Protein 5.9L, Albumin 2.4L 05/09/17 11:16: Glucometer 181H 05/09/17 16:12: Glucometer 112H 05/09/17 20:55: Glucometer 185H 05/09/17 21:05: Vancomycin Level Trough 7.1L 05/10/17 04:30: White Blood Count 13.4H, Red Blood Count 3.36L, Hemoglobin 9.4L, Hematocrit 31L , Mean Corpuscular Volume 91, Mean Corpuscular Hemoglobin 28, Mean Corpuscular Hemoglobin Concent 31L, Red Cell Distribution Width 15.5H, Platelet Count 412H, Mean Platelet Volume 9.8, Neutrophils (%) (Auto) 79H, Lymphocytes (%) (Auto) 13 , Monocytes (%) (Auto) 5, Eosinophils (%) (Auto) 2, Basophils (%) (Auto) 0, Neutrophils # (Auto) 10.7H, Lymphocytes # (Auto) 1.8, Monocytes # (Auto) 0.7, Eosinophils # (Auto) 0.3, Basophils # (Auto) 0.0, Sodium Level 139, Potassium Level 3.4L, Chloride Level 107, Carbon Dioxide Level 21, Anion Gap 11, Blood Urea Nitrogen 4L, Creatinine 0.46L, Estimat Glomerular Filtration Rate > 60, BUN /Creatinine Ratio 9, Glucose Level 180H, Calcium Level 8.2L, Phosphorus Level 2.4, Magnesium Level 1.6L, Total Bilirubin 0.4, Aspartate Amino Transf (AST/SGOT ) 7, Alanine Aminotransferase (ALT/SGPT) 9, Alkaline Phosphatase 95, Total Protein 5.6L, Albumin 2.3L 05/10/17 05:05: Glucometer 183H 05/10/17 11:39: Glucometer 126H 05/10/17 16:08: Glucometer 185H 05/10/17 20:46: Glucometer 194H 05/11/17 05:30: White Blood Count 12.8H, Red Blood Count 3.39L, Hemoglobin 9.4L, Hematocrit 31L , Mean Corpuscular Volume 91, Mean Corpuscular Hemoglobin 28, Mean Corpuscular Hemoglobin Concent 31L, Red Cell Distribution Width 15.2H, Platelet Count 434H, Mean Platelet Volume 9.6, Neutrophils (%) (Auto) 79H, Lymphocytes (%) (Auto) 14 , Monocytes (%) (Auto) 4, Eosinophils (%) (Auto) 3, Basophils (%) (Auto) 0, Neutrophils # (Auto) 10.1H, Lymphocytes # (Auto) 1.8, Monocytes # (Auto) 0.5, Eosinophils # (Auto) 0.3, Basophils # (Auto) 0.0, Sodium Level 137, Potassium Level 4.0, Chloride Level 102, Carbon Dioxide Level 25, Anion Gap 10, Blood Urea Nitrogen 7, Creatinine 0.55L, Estimat Glomerular Filtration Rate > 60, BUN/ Creatinine Ratio 13, Glucose Level 313H, Calcium Level 8.2L, Phosphorus Level 1.5L, Magnesium Level 1.3L, Total Bilirubin 0.2, Aspartate Amino Transf (AST/ SGOT) 6, Alanine Aminotransferase (ALT/SGPT) 7, Alkaline Phosphatase 94, Total Protein 5.9L, Albumin 2.4L 05/11/17 11:06: Glucometer 169H 05/11/17 16:29: Glucometer 213H 05/11/17 21:09: Glucometer 124H 05/12/17 06:12: Glucometer 227H 05/12/17 06:30: White Blood Count 8.5, Red Blood Count 3.58L, Hemoglobin 9.9L, Hematocrit 32L, Mean Corpuscular Volume 89, Mean Corpuscular Hemoglobin 28, Mean Corpuscular Hemoglobin Concent 31L, Red Cell Distribution Width 15.1H, Platelet Count 442H, Mean Platelet Volume 9.7, Neutrophils (%) (Auto) 71, Lymphocytes (%) (Auto) 19, Monocytes (%) (Auto) 7, Eosinophils (%) (Auto) 3, Basophils (%) (Auto) 0, Neutrophils # (Auto) 6.0, Lymphocytes # (Auto) 1.6, Monocytes # (Auto) 0.6, Eosinophils # (Auto) 0.3, Basophils # (Auto) 0.0, Sodium Level 142, Potassium Level 3.9, Chloride Level 102, Carbon Dioxide Level 26, Anion Gap 14, Blood Urea Nitrogen 3L, Creatinine 0.47L, Estimat Glomerular Filtration Rate > 60, BUN /Creatinine Ratio 6, Glucose Level 238H, Calcium Level 8.3L, Phosphorus Level 2.3, Magnesium Level 1.4L, Total Bilirubin 0.3, Aspartate Amino Transf (AST/SGOT ) 12, Alanine Aminotransferase (ALT/SGPT) 10, Alkaline Phosphatase 106, Total Protein 6.1L, Albumin 2.5L 05/12/17 11:11: Glucometer 131H 05/12/17 16:15: Glucometer 149H 05/12/17 20:56: Glucometer 231H 05/13/17 05:20: Glucometer 196H 05/13/17 05:45: White Blood Count 5.2, Red Blood Count 3.42L, Hemoglobin 9.4L, Hematocrit 31L, Mean Corpuscular Volume 90, Mean Corpuscular Hemoglobin 28, Mean Corpuscular Hemoglobin Concent 31L, Red Cell Distribution Width 15.5H, Platelet Count 448H, Mean Platelet Volume 9.8, Neutrophils (%) (Auto) 54, Lymphocytes (%) (Auto) 34, Monocytes (%) (Auto) 9, Eosinophils (%) (Auto) 3, Basophils (%) (Auto) 0, Neutrophils # (Auto) 2.8, Lymphocytes # (Auto) 1.8, Monocytes # (Auto) 0.5, Eosinophils # (Auto) 0.2, Basophils # (Auto) 0.0, Sodium Level 142, Potassium Level 3.7, Chloride Level 102, Carbon Dioxide Level 24, Anion Gap 16H, Blood Urea Nitrogen 5L, Creatinine 0.53L, Estimat Glomerular Filtration Rate > 60, BUN /Creatinine Ratio 9, Glucose Level 217H, Calcium Level 8.7, Phosphorus Level 2.7 , Magnesium Level 1.4L, Total Bilirubin 0.3, Aspartate Amino Transf (AST/SGOT) 9 , Alanine Aminotransferase (ALT/SGPT) 7, Alkaline Phosphatase 89, Total Protein 6.0L, Albumin 2.4L 05/13/17 11:33: Glucometer 216H 05/13/17 16:53: Glucometer 199H 05/13/17 20:33: Glucometer 170H 05/14/17 04:45: White Blood Count 7.6, Red Blood Count 3.56L, Hemoglobin 9.8L, Hematocrit 32L, Mean Corpuscular Volume 90, Mean Corpuscular Hemoglobin 28, Mean Corpuscular Hemoglobin Concent 31L, Red Cell Distribution Width 15.4H, Platelet Count 442H, Mean Platelet Volume 9.4, Neutrophils (%) (Auto) 67, Lymphocytes (%) (Auto) 25, Monocytes (%) (Auto) 5, Eosinophils (%) (Auto) 3, Basophils (%) (Auto) 0, Neutrophils # (Auto) 5.0, Lymphocytes # (Auto) 1.9, Monocytes # (Auto) 0.4, Eosinophils # (Auto) 0.2, Basophils # (Auto) 0.0, Sodium Level 139, Potassium Level 3.8, Chloride Level 98, Carbon Dioxide Level 28, Anion Gap 13, Blood Urea Nitrogen 8, Creatinine 0.51L, Estimat Glomerular Filtration Rate > 60, BUN/ Creatinine Ratio 16, Glucose Level 242H, Calcium Level 8.7, Phosphorus Level 2.7 , Magnesium Level 1.5L, Total Bilirubin 0.2, Aspartate Amino Transf (AST/SGOT) 11, Alanine Aminotransferase (ALT/SGPT) 9, Alkaline Phosphatase 100, Total Protein 6.3L, Albumin 2.6L 05/14/17 05:23: Glucometer 252H 05/14/17 09:08: Urine Color YELLOW, Urine Clarity SLIGHTLY CLOUDY, Urine pH 7, Urine Specific Sheldon 1.015L, Urine Protein NEGATIVE, Urine Glucose (UA) 2+H, Urine Ketones 3+ H, Urine Nitrite NEGATIVE, Urine Bilirubin NEGATIVE, Urine Urobilinogen NORMAL, Urine Leukocyte Esterase 3+H, Urine RBC (Auto) 1+H, Urine RBC 2-5H, Urine WBC > 100H, Urine Squamous Epithelial Cells >50H, Urine Crystals NONE, Urine Bacteria TRACE, Urine Casts NONE, Urine Mucus NEGATIVE, Urine Yeast LARGEH, Urine Culture Indicated YES 05/14/17 11:00: Glucometer 211H Microbiology 05/07/17 Blood Culture - Final, Complete No growth 05/07/17 MRSA Screen - Final, Complete MRSA not isolated 05/14/17 Urine Culture - Preliminary, Resulted NO GROWTH Laboratory Tests 05/07/17 18:13 05/08/17 04:30 05/09/17 05:05 05/10/17 04:30 05/11/17 05:30 05/12/17 06:30 05/13/17 05:45 05/14/17 04:45 Pending Labs Microbiology Date/Time Source Procedure Growth Status 05/07/17 18:44 Peripheral Lt Ac Blood Culture - Final No growth Complete 05/07/17 18:13 Peripheral Right Wrist Blood Culture - Preliminary Propionibacterium Species Resulted 05/07/17 21:37 Nasal MRSA Screen - Final MRSA not isolated Complete 05/07/17 21:37 Sputum Expectorated Gram Stain - Final Complete 05/07/17 21:37 Sputum Culture - Final Presumptive Meli Glabrata Presumptive Meli Albicans Complete 05/14/17 09:08 Urine Voided Urine Urine Culture - Preliminary NO GROWTH Resulted 05/07/17 19:18 Urine Clean Catch Urine Culture - Final Presumptive Meli Glabrata Probable Actinomyces Complete Laboratory Tests 05/07/17 18:13: White Blood Count 7.8, Red Blood Count 4.00, Hemoglobin 11.2, Hematocrit 36, Mean Corpuscular Volume 90, Mean Corpuscular Hemoglobin 28, Mean Corpuscular Hemoglobin Concent 31, Red Cell Distribution Width 15.5, Platelet Count 528, Mean Platelet Volume 10.1, Neutrophils (%) (Auto) 69, Lymphocytes (%) (Auto) 22 , Monocytes (%) (Auto) 6, Eosinophils (%) (Auto) 3, Basophils (%) (Auto) 0, Neutrophils # (Auto) 5.4, Lymphocytes # (Auto) 1.7, Monocytes # (Auto) 0.5, Eosinophils # (Auto) 0.2, Basophils # (Auto) 0.0, Prothrombin Time 14.0, INR Comment 1.1, Activated Partial Thromboplast Time 30, Sodium Level 139, Potassium Level 3.7, Chloride Level 100, Carbon Dioxide Level 30, Anion Gap 9, Blood Urea Nitrogen 14, Creatinine 0.58, Estimat Glomerular Filtration Rate > 60 , BUN/Creatinine Ratio 24, Glucose Level 262, Lactic Acid Level 0.67, Calcium Level 8.6, Magnesium Level 1.6, Total Bilirubin 0.2, Aspartate Amino Transf (AST /SGOT) 12, Alanine Aminotransferase (ALT/SGPT) 9, Alkaline Phosphatase 121, Troponin I < 0.30, Total Protein 7.2, Albumin 3.0 05/07/17 18:29: Glucometer 168 05/07/17 18:45: Blood Gas Puncture Site LEFT BRACHIAL, Blood Gas Patient Temperature 96.5, Arterial Blood pH 7.42, Arterial Blood Partial Pressure CO2 48, Arterial Blood Partial Pressure O2 57, Arterial Blood HCO3 31, Arterial Blood Total CO2 32.5, Arterial Blood Oxygen Saturation 91, Arterial Blood Base Excess 6.3, Elie Test NA, Blood Gas Ventilator Setting NO, Blood Gas Inspired Oxygen 10L 05/07/17 19:18: Urine Color YELLOW, Urine Clarity VERY CLOUDY, Urine pH 6, Urine Specific Sheldon 1.020, Urine Protein 2+, Urine Glucose (UA) 1+, Urine Ketones NEGATIVE, Urine Nitrite NEGATIVE, Urine Bilirubin NEGATIVE, Urine Urobilinogen 1, Urine Leukocyte Esterase 3+, Urine RBC (Auto) 3+, Urine RBC 5-10, Urine WBC 10-25, Urine Squamous Epithelial Cells .50, Urine Crystals NONE, Urine Bacteria LARGE, Urine Casts NONE, Urine Mucus NEGATIVE, Urine Yeast LARGE, Urine Culture Indicated YES 05/08/17 04:30: White Blood Count 25.3, Red Blood Count 3.63, Hemoglobin 10.2, Hematocrit 33, Mean Corpuscular Volume 91, Mean Corpuscular Hemoglobin 28, Mean Corpuscular Hemoglobin Concent 31, Red Cell Distribution Width 15.7, Platelet Count 491, Mean Platelet Volume 10.5, Neutrophils (%) (Auto) 91, Lymphocytes (%) (Auto) 6, Monocytes (%) (Auto) 3, Eosinophils (%) (Auto) 0, Basophils (%) (Auto) 0, Neutrophils # (Auto) 23.1, Lymphocytes # (Auto) 1.4, Monocytes # (Auto) 0.7, Eosinophils # (Auto) 0.0, Basophils # (Auto) 0.0, Neutrophils % (Manual) 78, Lymphocytes % (Manual) 2, Monocytes % (Manual) 2, Eosinophils % (Manual) 0, Basophils % (Manual) 0, Band Neutrophils 16, Reactive Lymphocytes 2, Hypochromasia MODERATE, Anisocytosis SLIGHT, Macrocytosis SLIGHT, Sodium Level 141, Potassium Level 3.8, Chloride Level 109, Carbon Dioxide Level 23, Anion Gap 9, Blood Urea Nitrogen 7, Creatinine 0.52, Estimat Glomerular Filtration Rate > 60, BUN/Creatinine Ratio 13, Glucose Level 229, Lactic Acid Level 0.78, Calcium Level 7.7, Phosphorus Level 2.6, Magnesium Level 1.4, Total Bilirubin 0.3, Aspartate Amino Transf (AST/SGOT) 11, Alanine Aminotransferase (ALT/SGPT) 8 , Alkaline Phosphatase 94, Total Protein 5.2, Albumin 2.4 05/08/17 11:15: Glucometer 184 05/08/17 15:40: Glucometer 204 05/08/17 21:12: Glucometer 99 05/09/17 05:05: White Blood Count 24.3, Red Blood Count 3.60, Hemoglobin 10.1, Hematocrit 33, Mean Corpuscular Volume 90, Mean Corpuscular Hemoglobin 28, Mean Corpuscular Hemoglobin Concent 31, Red Cell Distribution Width 15.6, Platelet Count 453, Mean Platelet Volume 9.7, Neutrophils (%) (Auto) 91, Lymphocytes (%) (Auto) 5, Monocytes (%) (Auto) 4, Eosinophils (%) (Auto) 0, Basophils (%) (Auto) 0, Neutrophils # (Auto) 22.0, Lymphocytes # (Auto) 1.3, Monocytes # (Auto) 0.9, Eosinophils # (Auto) 0.1, Basophils # (Auto) 0.0, Sodium Level 136, Potassium Level 3.9, Chloride Level 104, Carbon Dioxide Level 20, Anion Gap 12, Blood Urea Nitrogen 5, Creatinine 0.53, Estimat Glomerular Filtration Rate > 60, BUN/ Creatinine Ratio 9, Glucose Level 241, Calcium Level 8.2, Phosphorus Level 1.5, Magnesium Level 1.3, Total Bilirubin 0.4, Aspartate Amino Transf (AST/SGOT) 11, Alanine Aminotransferase (ALT/SGPT) 8, Alkaline Phosphatase 111, B-Type Natriuretic Peptide 155.6, Total Protein 5.9, Albumin 2.4 05/09/17 11:16: Glucometer 181 05/09/17 16:12: Glucometer 112 05/09/17 20:55: Glucometer 185 05/09/17 21:05: Vancomycin Level Trough 7.1 05/10/17 04:30: White Blood Count 13.4, Red Blood Count 3.36, Hemoglobin 9.4, Hematocrit 31, Mean Corpuscular Volume 91, Mean Corpuscular Hemoglobin 28, Mean Corpuscular Hemoglobin Concent 31, Red Cell Distribution Width 15.5, Platelet Count 412, Mean Platelet Volume 9.8, Neutrophils (%) (Auto) 79, Lymphocytes (%) (Auto) 13, Monocytes (%) (Auto) 5, Eosinophils (%) (Auto) 2, Basophils (%) (Auto) 0, Neutrophils # (Auto) 10.7, Lymphocytes # (Auto) 1.8, Monocytes # (Auto) 0.7, Eosinophils # (Auto) 0.3, Basophils # (Auto) 0.0, Sodium Level 139, Potassium Level 3.4, Chloride Level 107, Carbon Dioxide Level 21, Anion Gap 11, Blood Urea Nitrogen 4, Creatinine 0.46, Estimat Glomerular Filtration Rate > 60, BUN/ Creatinine Ratio 9, Glucose Level 180, Calcium Level 8.2, Phosphorus Level 2.4, Magnesium Level 1.6, Total Bilirubin 0.4, Aspartate Amino Transf (AST/SGOT) 7, Alanine Aminotransferase (ALT/SGPT) 9, Alkaline Phosphatase 95, Total Protein 5.6, Albumin 2.3 05/10/17 05:05: Glucometer 183 05/10/17 11:39: Glucometer 126 05/10/17 16:08: Glucometer 185 05/10/17 20:46: Glucometer 194 05/11/17 05:30: White Blood Count 12.8, Red Blood Count 3.39, Hemoglobin 9.4, Hematocrit 31, Mean Corpuscular Volume 91, Mean Corpuscular Hemoglobin 28, Mean Corpuscular Hemoglobin Concent 31, Red Cell Distribution Width 15.2, Platelet Count 434, Mean Platelet Volume 9.6, Neutrophils (%) (Auto) 79, Lymphocytes (%) (Auto) 14, Monocytes (%) (Auto) 4, Eosinophils (%) (Auto) 3, Basophils (%) (Auto) 0, Neutrophils # (Auto) 10.1, Lymphocytes # (Auto) 1.8, Monocytes # (Auto) 0.5, Eosinophils # (Auto) 0.3, Basophils # (Auto) 0.0, Sodium Level 137, Potassium Level 4.0, Chloride Level 102, Carbon Dioxide Level 25, Anion Gap 10, Blood Urea Nitrogen 7, Creatinine 0.55, Estimat Glomerular Filtration Rate > 60, BUN/ Creatinine Ratio 13, Glucose Level 313, Calcium Level 8.2, Phosphorus Level 1.5 , Magnesium Level 1.3, Total Bilirubin 0.2, Aspartate Amino Transf (AST/SGOT) 6 , Alanine Aminotransferase (ALT/SGPT) 7, Alkaline Phosphatase 94, Total Protein 5.9, Albumin 2.4 05/11/17 11:06: Glucometer 169 05/11/17 16:29: Glucometer 213 05/11/17 21:09: Glucometer 124 05/12/17 06:12: Glucometer 227 05/12/17 06:30: White Blood Count 8.5, Red Blood Count 3.58, Hemoglobin 9.9, Hematocrit 32, Mean Corpuscular Volume 89, Mean Corpuscular Hemoglobin 28, Mean Corpuscular Hemoglobin Concent 31, Red Cell Distribution Width 15.1, Platelet Count 442, Mean Platelet Volume 9.7, Neutrophils (%) (Auto) 71, Lymphocytes (%) (Auto) 19, Monocytes (%) (Auto) 7, Eosinophils (%) (Auto) 3, Basophils (%) (Auto) 0, Neutrophils # (Auto) 6.0, Lymphocytes # (Auto) 1.6, Monocytes # (Auto) 0.6, Eosinophils # (Auto) 0.3, Basophils # (Auto) 0.0, Sodium Level 142, Potassium Level 3.9, Chloride Level 102, Carbon Dioxide Level 26, Anion Gap 14, Blood Urea Nitrogen 3, Creatinine 0.47, Estimat Glomerular Filtration Rate > 60, BUN/ Creatinine Ratio 6, Glucose Level 238, Calcium Level 8.3, Phosphorus Level 2.3, Magnesium Level 1.4, Total Bilirubin 0.3, Aspartate Amino Transf (AST/SGOT) 12, Alanine Aminotransferase (ALT/SGPT) 10, Alkaline Phosphatase 106, Total Protein 6.1, Albumin 2.5 05/12/17 11:11: Glucometer 131 05/12/17 16:15: Glucometer 149 05/12/17 20:56: Glucometer 231 05/13/17 05:20: Glucometer 196 05/13/17 05:45: White Blood Count 5.2, Red Blood Count 3.42, Hemoglobin 9.4, Hematocrit 31, Mean Corpuscular Volume 90, Mean Corpuscular Hemoglobin 28, Mean Corpuscular Hemoglobin Concent 31, Red Cell Distribution Width 15.5, Platelet Count 448, Mean Platelet Volume 9.8, Neutrophils (%) (Auto) 54, Lymphocytes (%) (Auto) 34, Monocytes (%) (Auto) 9, Eosinophils (%) (Auto) 3, Basophils (%) (Auto) 0, Neutrophils # (Auto) 2.8, Lymphocytes # (Auto) 1.8, Monocytes # (Auto) 0.5, Eosinophils # (Auto) 0.2, Basophils # (Auto) 0.0, Sodium Level 142, Potassium Level 3.7, Chloride Level 102, Carbon Dioxide Level 24, Anion Gap 16, Blood Urea Nitrogen 5, Creatinine 0.53, Estimat Glomerular Filtration Rate > 60, BUN/ Creatinine Ratio 9, Glucose Level 217, Calcium Level 8.7, Phosphorus Level 2.7, Magnesium Level 1.4, Total Bilirubin 0.3, Aspartate Amino Transf (AST/SGOT) 9, Alanine Aminotransferase (ALT/SGPT) 7, Alkaline Phosphatase 89, Total Protein 6.0, Albumin 2.4 05/13/17 11:33: Glucometer 216 05/13/17 16:53: Glucometer 199 05/13/17 20:33: Glucometer 170 05/14/17 04:45: White Blood Count 7.6, Red Blood Count 3.56, Hemoglobin 9.8, Hematocrit 32, Mean Corpuscular Volume 90, Mean Corpuscular Hemoglobin 28, Mean Corpuscular Hemoglobin Concent 31, Red Cell Distribution Width 15.4, Platelet Count 442, Mean Platelet Volume 9.4, Neutrophils (%) (Auto) 67, Lymphocytes (%) (Auto) 25, Monocytes (%) (Auto) 5, Eosinophils (%) (Auto) 3, Basophils (%) (Auto) 0, Neutrophils # (Auto) 5.0, Lymphocytes # (Auto) 1.9, Monocytes # (Auto) 0.4, Eosinophils # (Auto) 0.2, Basophils # (Auto) 0.0, Sodium Level 139, Potassium Level 3.8, Chloride Level 98, Carbon Dioxide Level 28, Anion Gap 13, Blood Urea Nitrogen 8, Creatinine 0.51, Estimat Glomerular Filtration Rate > 60, BUN/ Creatinine Ratio 16, Glucose Level 242, Calcium Level 8.7, Phosphorus Level 2.7 , Magnesium Level 1.5, Total Bilirubin 0.2, Aspartate Amino Transf (AST/SGOT) 11 , Alanine Aminotransferase (ALT/SGPT) 9, Alkaline Phosphatase 100, Total Protein 6.3, Albumin 2.6 05/14/17 05:23: Glucometer 252 05/14/17 09:08: Urine Color YELLOW, Urine Clarity SLIGHTLY CLOUDY, Urine pH 7, Urine Specific Sheldon 1.015, Urine Protein NEGATIVE, Urine Glucose (UA) 2+, Urine Ketones 3+, Urine Nitrite NEGATIVE, Urine Bilirubin NEGATIVE, Urine Urobilinogen NORMAL, Urine Leukocyte Esterase 3+, Urine RBC (Auto) 1+, Urine RBC 2-5, Urine WBC >100 , Urine Squamous Epithelial Cells >50, Urine Crystals NONE, Urine Bacteria TRACE , Urine Casts NONE, Urine Mucus NEGATIVE, Urine Yeast LARGE, Urine Culture Indicated YES 05/14/17 11:00: Glucometer 211 Radiology Reviewed MODIFIED BARIUM SWALLOW EXAMINATION: Modified barium swallow. Indication: Dysphagia Different consistencies of fluid and food was given mixed with barium and swallowing was visualized under fluoroscopy. FLUOROSCOPY TIME: One minute and 34 seconds FINDINGS: No aspiration seen. However the patient couldn't tolerate even minimal amount of oral intake. Imaging of the upper esophagus demonstrates accumulation of barium in the upper esophagus with suggestion of a severe stricture, about 5-6 cm in length in the upper to mid esophagus.. 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 The patient is not able to tolerate even small oral intake at this time. Please refer to speech therapist's report for additional details . The findings were discussed with Dr. Caba at time of dictation. Dictated by: Dictated on workstation # [id number] Discussion & Recommendations patient will be nothing by mouth. Patient to be evaluated by GI Discharge Home Medications: Active Scripts Active Reported Glucagon Emergency Kit (Glucagon,Human Recombinant) 1 Mg/Kit Soln 1 Mg IM UD PRN Mucinex Dm ER 600-30 mg Tablet (Guaifenesin/Dextromethorphan) 1 Each Tab.er.12h 1 Tab PEG BID Docusate Sodium 100 Mg Tablet 100 Mg PEG BID Carvedilol 6.25 Mg Tablet 6.25 Mg PEG BID HOLD FOR SYSTOLIC BP <100 OR PULSE <60 Protonix (Pantoprazole Sodium) 40 Mg Granpkt. 40 Mg PEG DAILY Lovastatin 10 Mg Tablet 10 Mg PEG HS Citalopram HBr (Citalopram Hydrobromide) 10 Mg/5 Ml Solution 20 Ml PEG DAILY Aspirin EC (Aspirin) 81 Mg Tablet. 81 Mg PEG DAILY Alprazolam 0.25 Mg Tablet 0.25 Mg PEG BID PRN Robitussin Cough-Chest Dm Liq (Guaifenesin/Dextromethorphan) 237 Ml Liquid 10 Ml PO Q4H PRN Miralax (Polyethylene Glycol 3350) 119 Gm Powder 17 Gm PEG DAILY PRN Humulin R (Insulin Regular, Human) 1,000 Units/10 Ml Soln SQ QID 60-200 =0 UNITS 201-250=3 UNITS 251-300=5 UNITS 301-350=7 UNITS 351-400=9 UNITS CALL MD IF OVER 400 Acetaminophen 500 Mg Tablet 500 Mg PO Q6H PRN Instructions to patient/family Please see electronic discharge instructions given to patient. Clinical Quality Measures DVT/VTE Risk/Contraindication: Risk Factor Score Per Nursin RFS Level Per Nursing on Admit: 4+=Very High RANDI RIBEIRO DO May 15, 2017 08:20
== END 2017-05-14 12:33 | DRG 871 ==
LOC: EDUNIT# 18:01 → ER 18:02 → ICU 20:15 → 4TH 05-09 13:45
PROVIDERS: ADMIT Family Medicine; ATTEND Family Medicine
PROC: 02H633Z Insertion of Infusion Device into Right Atrium, Percutaneous Approach (ICD-10-PCS; principal; 2017-05-07)
DX: A41.9 Sepsis, unspecified organism (principal); R65.21 Severe sepsis with septic shock; J18.9 Pneumonia, unspecified organism; N39.0 Urinary tract infection, site not specified; J96.00 Acute respiratory failure, unspecified whether with hypoxia or hypercapnia; J98.11 Atelectasis; J69.0 Pneumonitis due to inhalation of food and vomit; E83.42 Hypomagnesemia; K22.2 Esophageal obstruction; I95.9 Hypotension, unspecified; E11.649 Type 2 diabetes mellitus with hypoglycemia without coma; Z79.4 Long term (current) use of insulin; F41.9 Anxiety disorder, unspecified; F32.9 Major depressive disorder, single episode, unspecified; K21.9 Gastro-esophageal reflux disease without esophagitis; G40.909 Epilepsy, unspecified, not intractable, without status epilepticus; E78.00 Pure hypercholesterolemia, unspecified; I10 Essential (primary) hypertension; F17.210 Nicotine dependence, cigarettes, uncomplicated; R13.10 Dysphagia, unspecified; Z93.0 Tracheostomy status; Z91.19 Patient's noncompliance with other medical treatment and regimen; Z93.1 Gastrostomy status
CPT/HCPCS: 36415; 51702; 71010; 74230; 80053; 80202; 81000; 82805; 82962; 83605; 83735; 83880; 84100; 84484; 85007; 85025; 85027; 85610; 85730; 87040; 87070; 87081; 87088; 87205; 93005; 94640; 94664; 94760; 96361; 96365

== ENCOUNTER 2017-05-29 08:19 | Emergency (ER) | payer MEDICAID ==
[~2017-05-29] VITALS: Ht 152.4 cm; Wt 49.0 kg
[~2017-05-29 08:19] MED LIST changes: +ASPI-983 PEG; +CARV6.252 PEG; +CITA10SO PEG; +DOCU100T2 PEG; +GLUC1KIT IM; +GUAI-367 PEG; +LOVA10TA PEG; +PANT40SU PEG
--- OUTSIDE RECORDS SUMMARY | 2017-05-29 08:24 | XMS REPORT | Clinical Summary ---
Author Author [facility] Organization [facility] Address Unknown Phone Unavailable Care Team Providers Care Soda Dry House Operator Name Role Phone PCP Unavailable Source Comments Some departments are not documenting in the electronic medical record. If you do not see the information that you expected, contact Release of Information in the Health Information Management department at [phone] for further assistance in locating additional records.[facility] Allergies Not on File Current Medications Not [...]
--- NOTE | 2017-05-29 08:45 | ED General ---
General Chief Complaint: Catheter/Drain/Tube Problems Stated Complaint: PEG TUBE REPLACEMENT Source of Information: Patient Exam Limitations: No Limitations History of Present Illness Time Seen by Provider: 08:30 Initial Comments Here with report of feeding tube accidentally getting pulled out. Patient apparently has Merida catheter in place as a replacement for her previous feeding tube. She asked that was sat on the tube which pulled the tube out. Denies other injury or concerns. Timing/Duration: 1 Hour Severity: Mild Associated Systoms: No Fever/Chills, No Nausea/Vomiting Allergies and Home Medications Allergies Coded Allergies: Sulfa (Sulfonamide Antibiotics) (Verified Allergy, Mild, Rash, 07/12/16) Home Medications Acetaminophen 500 Mg Tablet, 500 MG PO Q6H PRN for MILD PAIN/FEVER, (Reported) Alprazolam 0.25 Mg Tablet, 0.25 MG PEG BID PRN for ANXIETY, (Reported) Aspirin 81 Mg Tablet.dr, 81 MG PEG DAILY, (Reported) Carvedilol 6.25 Mg Tablet, 6.25 MG PEG BID, (Reported) HOLD FOR SYSTOLIC BP <100 OR PULSE <60 Citalopram Hydrobromide 10 Mg/5 Ml Solution, 20 ML PEG DAILY, (Reported) Docusate Sodium 100 Mg Tablet, 100 MG PEG BID, (Reported) Glucagon,Human Recombinant 1 Mg/Kit Soln, 1 MG IM UD PRN for HYPOGLYCEMIA, ( Reported) Guaifenesin/Dextromethorphan 237 Ml Liquid, 10 ML PO Q4H PRN for COUGH, ( Reported) Guaifenesin/Dextromethorphan 1 Each Tab.er.12h, 1 TAB PEG BID, (Reported) Insulin Regular, Human 1,000 Units/10 Ml Soln, SQ QID, (Reported) 60-200 =0 UNITS 201-250=3 UNITS 251-300=5 UNITS 301-350=7 UNITS 351-400=9 UNITS CALL MD IF OVER 400 Lovastatin 10 Mg Tablet, 10 MG PEG HS, (Reported) Pantoprazole Sodium 40 Mg Granpkt.dr, 40 MG PEG DAILY, (Reported) Polyethylene Glycol 3350 119 Gm Powder, 17 GM PEG DAILY PRN for CONSTIPATION- 1ST LINE, (Reported) Constitutional: see HPI, No chills, No fever Respiratory: no symptoms reported Cardiovascular: no symptoms reported Gastrointestinal: see HPI, No abdominal pain, No nausea, No vomiting Genitourinary: no symptoms reported Skin: no symptoms reported Past Wsjnzhi-Rxmpsw-Zemkml Hx Patient Social History Alcohol Use: Denies Use Recreational Drug Use: No Drug of Choice: polydrug abuse, meth Smoking Status: Current Everyday Smoker Type Used: Cigarettes 2nd Hand Smoke Exposure: No Recent Foreign Travel: No Contact w/Someone Who Travel: No Recent Hopitalizations: Yes Immunizations Up To Date Tetanus Booster (TDap): Unknown Date of Pneumonia Vaccine: Aug 06, 2016 Date of Influenza Vaccine: Jun 24, 2016 Seasonal Allergies Seasonal Allergies: No Surgeries History of Surgeries: Yes (ovarian cyst removed with ovary, L hip fx, peg tube) Surgeries: Abdominal, Tracheostomy Respiratory History of Respiratory Disorde: Yes (hx of collapsed lung ) Respiratory Disorders: Pneumonia Cardiovascular History of Cardiac Disorders: Yes Cardiac Disorders: High Cholesterol, Hypertension Neurological History of Neurological Disord: Yes Neurological Disorders: Seizure Disorder Reproductive System Hx Reproductive Disorders: No Genitourinary History of Genitourinary Disor: Yes (Yeast in urine, UTI, inct) Gastrointestinal History of Gastrointestinal Di: Yes (peg tube) Gastrointestinal Disorders: Gastroesophageal Reflux, Gastrointestinal Bleed, Esophageal Varices Musculoskeletal History of Musculoskeletal Dis: Yes (Lt hip fx) Musculoskeletal Disorders: Fractures Endocrine History of Endocrine Disorders: Yes Endocrine Disorders: Diabetes, Insulin dep HEENT History of HEENT Disorders: No Hearing Impairment: Denies Cancer History of Cancer: No Psychosocial History of Psychiatric Problem: Yes Behavioral Health Disorders: Anxiety, Suicide Attempts, Depression Integumentary History of Skin or Integumenta: Yes (red heels, coccyx) Blood Transfusions History of Blood Disorders: No Adverse Reaction to a Blood Tr: No Family Medical History Family Medial History: Hypertension 19 FATHER Physical Exam Vital Signs Vital Sign - Last 12Hours 05/29/17 08:35 Temp 97.2 Pulse 84 Resp 18 B/P (MAP) 114/84 (94) Pulse Ox 92 Capillary Refill : General Appearance: No Apparent Distress, WD/WN Respiratory: Lungs Clear, Normal Breath Sounds, No Accessory Muscle Use Cardiovascular: Regular Rate, Rhythm, No Murmur Gastrointestinal: Non Tender, Soft Neurologic/Psychiatric: Alert, Oriented x3 Skin: Normal Color, Warm/Dry Progress/Results/Core Measures Suspected Sepsis SIRS Temperature: Pulse: Respiratory Rate: Blood Pressure / Mean: Results/Orders Vital Signs/I&O Vital Sign - Last 12Hours 05/29/17 08:35 Temp 97.2 Pulse 84 Resp 18 B/P (MAP) 114/84 (94) Pulse Ox 92 Capillary Refill : Progress Note : Progress Note Seen and evaluated. We will attempt to replace with actual PEG Tube we will use Merida catheter if unavailable. 0910: tube replaced with 18 Bulgarian PEG tube without difficulty. Covered with dressing. 8 mL of saline instilled. Discharged home with return precautions. Patient verbalize understanding instructions and agreement with plan. Departure Impression Impression: Primary Impression: PEG (percutaneous endoscopic gastrostomy) adjustment/replacement/removal Disposition: 01 HOME, SELF-CARE Condition: Improved Departure-Patient Inst. Decision time for Depature: 09:12 Referrals: RANDI RIBEIRO DO (PCP) Primary Care Physician Patient Instructions: How to Care for Your PEG Tube Add. Discharge Instructions: All discharge instructions reviewed with patient and/or family. Voiced understanding. Continue care of PEG tube is previously prescribed. Follow-up with your DrMelissa in a few days for recheck as needed. Return for other concerns as needed. GARRISON HANKS MD May 29, 2017 08:45
[2017-05-29 09:19] VITALS: BP 114/84
== END 2017-05-29 09:49 | disposition home or self-care (01) ==
LOC: EDUNIT# 08:19 → ER 08:20
DX: K94.23 Gastrostomy malfunction (principal); F15.10 Other stimulant abuse, uncomplicated; F19.10 Other psychoactive substance abuse, uncomplicated; E78.00 Pure hypercholesterolemia, unspecified; I10 Essential (primary) hypertension; G40.909 Epilepsy, unspecified, not intractable, without status epilepticus; E11.9 Type 2 diabetes mellitus without complications; K21.9 Gastro-esophageal reflux disease without esophagitis; F41.9 Anxiety disorder, unspecified; F32.9 Major depressive disorder, single episode, unspecified; F17.210 Nicotine dependence, cigarettes, uncomplicated; Z79.82 Long term (current) use of aspirin; Z91.5 Personal history of self-harm; Z87.19 Personal history of other diseases of the digestive system; Z87.440 Personal history of urinary (tract) infections; Z93.0 Tracheostomy status; Z79.4 Long term (current) use of insulin; Z87.01 Personal history of pneumonia (recurrent)
CPT/HCPCS: 43760

== ENCOUNTER 2017-07-04 12:24 | Emergency (ER) | payer MEDICAID ==
[~2017-07-04] VITALS: Ht 162.6 cm; Wt 47.2 kg
--- NOTE | 2017-07-04 15:12 | ED GI ---
General Chief Complaint: Catheter/Drain/Tube Problems Stated Complaint: PEG TUBE CAME LOOSE Nursing Triage Note: TO ED PER [facility] PATIENT REPORTS STAFF UNABLE TO FLUSH PEG TUBE. PATIENT ALSO CONCERN THAT SHE FEELS KNOT NEXT TO PEG TUBE. Sepsis Screen: No Definite Risk History of Present Illness Time Seen By Provider: 14:45 Initial Comments 41-year-old female Patient reports having trouble with her PEG tube. She used it this morning for a feeding and medication, after that it would not flush or irrigate. She denies any nausea, vomiting, diarrhea or abdominal pain. Timing/Duration: 1-3 Hours Location: Periumbilical Radiation: No Radiation Activities at Onset: None Associated Symptoms: Denies Symptoms Allergies and Home Medications Allergies Coded Allergies: Sulfa (Sulfonamide Antibiotics) (Verified Allergy, Mild, Rash, 07/12/16) Home Medications Acetaminophen 500 Mg Tablet, 500 MG PO Q6H PRN for MILD PAIN/FEVER, (Reported) Alprazolam 0.25 Mg Tablet, 0.25 MG PEG BID PRN for ANXIETY, (Reported) Aspirin 81 Mg Tablet., 81 MG PEG DAILY, (Reported) Carvedilol 6.25 Mg Tablet, 6.25 MG PEG BID, (Reported) HOLD FOR SYSTOLIC BP <100 OR PULSE <60 Citalopram Hydrobromide 10 Mg/5 Ml Solution, 20 ML PEG DAILY, (Reported) Docusate Sodium 100 Mg Tablet, 100 MG PEG BID, (Reported) Glucagon,Human Recombinant 1 Mg/Kit Soln, 1 MG IM UD PRN for HYPOGLYCEMIA, ( Reported) Guaifenesin/Dextromethorphan 237 Ml Liquid, 10 ML PO Q4H PRN for COUGH, ( Reported) Guaifenesin/Dextromethorphan 1 Each Tab.er.12h, 1 TAB PEG BID, (Reported) Insulin Regular, Human 1,000 Units/10 Ml Soln, SQ QID, (Reported) 60-200 =0 UNITS 201-250=3 UNITS 251-300=5 UNITS 301-350=7 UNITS 351-400=9 UNITS CALL MD IF OVER 400 Lovastatin 10 Mg Tablet, 10 MG PEG HS, (Reported) Pantoprazole Sodium 40 Mg Granpkt, 40 MG PEG DAILY, (Reported) Polyethylene Glycol 3350 119 Gm Powder, 17 GM PEG DAILY PRN for CONSTIPATION- 1ST LINE, (Reported) Review of Systems Constitutional: no symptoms reported, see HPI Gastrointestinal: See HPI, Other (malfunction of PEG tube) All Other Systems Reviewed Negative Unless Noted: Yes Past Tglxyoh-Vnvnlp-Xcrcva Hx Patient Social History Alcohol Use: Denies Use Recreational Drug Use: Yes (PAST) Drug of Choice: polydrug abuse, meth Smoking Status: Current Everyday Smoker Type Used: Cigarettes 2nd Hand Smoke Exposure: No Recent Foreign Travel: No Contact w/Someone Who Travel: No Recent Infectious Disease Expo: No Recent Hopitalizations: No Immunizations Up To Date Tetanus Booster (TDap): Unknown Date of Pneumonia Vaccine: Aug 06, 2016 Date of Influenza Vaccine: Jun 24, 2016 Seasonal Allergies Seasonal Allergies: No Surgeries History of Surgeries: Yes (ovarian cyst removed with ovary, L hip fx, peg tube) Surgeries: Abdominal, Tracheostomy Respiratory History of Respiratory Disorde: Yes (hx of collapsed lung ) Respiratory Disorders: Pneumonia Cardiovascular History of Cardiac Disorders: Yes Cardiac Disorders: High Cholesterol, Hypertension Neurological History of Neurological Disord: Yes Neurological Disorders: Seizure Disorder Reproductive System Hx Reproductive Disorders: No Genitourinary History of Genitourinary Disor: Yes (Yeast in urine, UTI, inct) Gastrointestinal History of Gastrointestinal Di: Yes (peg tube) Gastrointestinal Disorders: Gastroesophageal Reflux, Gastrointestinal Bleed, Esophageal Varices Musculoskeletal History of Musculoskeletal Dis: Yes (Lt hip fx) Musculoskeletal Disorders: Fractures Endocrine History of Endocrine Disorders: Yes Endocrine Disorders: Diabetes, Insulin dep HEENT History of HEENT Disorders: No Hearing Impairment: Denies Cancer History of Cancer: No Psychosocial History of Psychiatric Problem: Yes Behavioral Health Disorders: Anxiety, Suicide Attempts, Depression Integumentary History of Skin or Integumenta: Yes (red heels, coccyx) Blood Transfusions History of Blood Disorders: No Adverse Reaction to a Blood Tr: No Reviewed Nursing Assessment Reviewed/Agree w Nursing PMH: Yes Family Medical History Family Medial History: Hypertension 19 FATHER Physical Exam Vital Signs VS - Last 72 Hours, by Label 07/04/17 07/04/17 14:27 15:45 Temp 97.1 97.1 Pulse 100 100 Resp 18 18 B/P (MAP) 107/67 (80) Pulse Ox 98 98 Capillary Refill : Less Than 3 Seconds General Appearance: WD/WN, no apparent distress HEENT: PERRL/EOMI, normal ENT inspection, TMs normal, pharynx normal Respiratory: chest non-tender, lungs clear Cardiovascular: normal peripheral pulses, regular rate, rhythm Gastrointestinal: normal bowel sounds, non tender, soft Neurologic/Psychiatric: no motor/sensory deficits, alert, normal mood/affect Progress/Results/Core Measures Results/Orders Vital Signs/I&O Vital Sign - Last 12Hours 07/04/17 07/04/17 14:27 15:45 Temp 97.1 97.1 Pulse 100 100 Resp 18 18 B/P (MAP) 107/67 (80) Pulse Ox 98 98 Blood Pressure Mean: 80 Progress Note : Time: 14:45 Progress Note Initial evaluation, attempted to aspirate and irrigate the PEG tube with no success. Discussed with patient replacing the tube. She agreed with this plan. Discussed patient with Dr. Lanier, concurred with plan of care to change tube. 1500 Peg tube balloon deflated and removed. Tube replaced with 20 Rwandan PEG tube without difficulty, using sterile technique and prepping skin with Hibiclens. Covered with sterile dressing. 8 mL of saline instilled. Patient tolerated procedure well, no complications experience. Explained importance of flushing thoroughly after medications or tube feedings. Discharged home with return precautions. Patient verbalize understanding instructions and agreement with plan. Departure Impression Impression: Primary Impression: PEG tube malfunction Additional Impression: PEG (percutaneous endoscopic gastrostomy) adjustment/replacement/removal Disposition: 01 HOME, SELF-CARE Condition: Improved Departure-Patient Inst. Decision time for Depature: 15:10 Referrals: RANDI RIBEIRO DO (PCP) Primary Care Physician Patient Instructions: Enteral Feeding, Percutaneous Endoscopic Gastrostomy (DC) Add. Discharge Instructions: Flush tube thoroughly after medications and feedings. Follow-up with primary care provider if symptoms are not improving. Return to emergency department for new problems or concerns. All discharge instructions reviewed with patient and/or family. Voiced understanding. Copy Copies To 1: RANDI RIBEIRO AMY ARNP Jul 04, 2017 15:12
[2017-07-04 15:45] VITALS: BP 107/67
--- OUTSIDE RECORDS SUMMARY | 2017-07-04 21:28 | XMS REPORT | Clinical Summary ---
Author Author [facility] Organization [facility] Address Unknown Phone Unavailable Care Team Providers Care Web Assistant Name Role Phone PCP Unavailable Source Comments Some departments are not documenting in the electronic medical record. If you do not see the information that you expected, contact Release of Information in the Health Information Management department at [phone] for further assistance in locating additional records.[facility] Allergies Not on File Current [...]
== END 2017-07-04 16:14 | disposition home or self-care (01) ==
LOC: EDUNIT# 12:24 → ER 12:25
DX: K94.22 Gastrostomy infection (principal); E78.00 Pure hypercholesterolemia, unspecified; I10 Essential (primary) hypertension; G40.909 Epilepsy, unspecified, not intractable, without status epilepticus; E11.9 Type 2 diabetes mellitus without complications; K21.9 Gastro-esophageal reflux disease without esophagitis; F41.9 Anxiety disorder, unspecified; F32.9 Major depressive disorder, single episode, unspecified; F19.10 Other psychoactive substance abuse, uncomplicated; F15.10 Other stimulant abuse, uncomplicated; F17.210 Nicotine dependence, cigarettes, uncomplicated; Z93.0 Tracheostomy status; Z87.448 Personal history of other diseases of urinary system; Z91.5 Personal history of self-harm; Z87.01 Personal history of pneumonia (recurrent); Z79.82 Long term (current) use of aspirin; Z79.4 Long term (current) use of insulin
CPT/HCPCS: 43760

== ENCOUNTER 2017-07-23 13:49 | Emergency (ER) | payer MEDICAID ==
[~2017-07-23] VITALS: Ht 162.6 cm; Wt 47.4 kg
[~2017-07-23 13:49] MED LIST changes: +HYDR-34 PEG; +HYDR-34 PO; -HYDR-3816 PEG; -HYDR-3816 PO
--- OUTSIDE RECORDS SUMMARY | 2017-07-23 13:53 | XMS REPORT | Clinical Summary ---
Author Author [facility] Organization [facility] Address Unknown Phone Unavailable Care Team Providers Care Platform Stapler Name Role Phone Self, Referral PCP Unavailable Source Comments Some departments are not documenting in the electronic medical record. If you do not see the information that you expected, contact Release of Information in the Health Information Management department at [phone] for further assistance in locating additional records.[facility] Allergies Not on File Current Medications Not [...]
[2017-07-23] MEDS: fentaNYL INJECTION 100 MCG/2 ML AMP ONE ×3 (14:42→14:45)
[2017-07-23] MEDS ORDERED: fentaNYL INJECTION 100 MCG/2 ML AMP IM ONE (14:45)
--- NOTE | 2017-07-23 14:54 | ED GI ---
General Chief Complaint: Catheter/Drain/Tube Problems Stated Complaint: G-TUBE SITE PULLED Nursing Triage Note: TO ROOM PER [facility]. PATIENT REPORTS PEG TUBE IS COMING OUT. Sepsis Screen: No Definite Risk Source of Information: Patient Exam Limitations: No Limitations History of Present Illness Date Seen by Provider: Jul 23, 2017 Time Seen by Provider: 14:50 Initial Comments To ER from custodial with reports of PEG tube coming out. This particular PEG tube was replaced on July 04. She does have some pain around the site. She states that she cannot recall the last time she actually used this PEG tube as she is able to eat and drink without needing. Timing/Duration: 1-2 Days Severity/Quality: Moderate Activities at Onset: None Allergies and Home Medications Allergies Coded Allergies: Sulfa (Sulfonamide Antibiotics) (Verified Allergy, Mild, Rash, 07/12/16) Home Medications Acetaminophen 500 Mg Tablet, 500 MG PO Q6H PRN for MILD PAIN/FEVER, (Reported) Alprazolam 0.25 Mg Tablet, 0.25 MG PEG BID PRN for ANXIETY, (Reported) Aspirin 81 Mg Tablet., 81 MG PEG DAILY, (Reported) Carvedilol 6.25 Mg Tablet, 6.25 MG PEG BID, (Reported) HOLD FOR SYSTOLIC BP <100 OR PULSE <60 Citalopram Hydrobromide 10 Mg/5 Ml Solution, 20 ML PEG DAILY, (Reported) Docusate Sodium 100 Mg Tablet, 100 MG PEG BID, (Reported) Glucagon,Human Recombinant 1 Mg/Kit Soln, 1 MG IM UD PRN for HYPOGLYCEMIA, ( Reported) Guaifenesin/Dextromethorphan 237 Ml Liquid, 10 ML PO Q4H PRN for COUGH, ( Reported) Guaifenesin/Dextromethorphan 1 Each Tab.er.12h, 1 TAB PEG BID, (Reported) Insulin Regular, Human 1,000 Units/10 Ml Soln, SQ QID, (Reported) 60-200 =0 UNITS 201-250=3 UNITS 251-300=5 UNITS 301-350=7 UNITS 351-400=9 UNITS CALL MD IF OVER 400 Lovastatin 10 Mg Tablet, 10 MG PEG HS, (Reported) Pantoprazole Sodium 40 Mg Granpkt., 40 MG PEG DAILY, (Reported) Polyethylene Glycol 3350 119 Gm Powder, 17 GM PEG DAILY PRN for CONSTIPATION- 1ST LINE, (Reported) Review of Systems Constitutional: see HPI EENTM: No Symptoms Reported Respiratory: No Symptoms Reported Cardiovascular: No Symptoms Reported Gastrointestinal: See HPI Genitourinary: No Symptoms Reported Musculoskeletal: no symptoms reported Skin: no symptoms reported Psychiatric/Neurological: No Symptoms Reported Endocrine: No Symptoms Reported Past Ukwhimu-Qfuhby-Rjaesd Hx Patient Social History Alcohol Use: Denies Use Recreational Drug Use: No Drug of Choice: polydrug abuse, meth Type Used: Cigarettes 2nd Hand Smoke Exposure: No Recent Foreign Travel: No Contact w/Someone Who Travel: No Recent Infectious Disease Expo: No Recent Hopitalizations: No Immunizations Up To Date Tetanus Booster (TDap): Unknown Date of Pneumonia Vaccine: Aug 06, 2016 Date of Influenza Vaccine: Jun 24, 2016 Seasonal Allergies Seasonal Allergies: No Surgeries History of Surgeries: Yes (ovarian cyst removed with ovary, L hip fx, peg tube) Surgeries: Abdominal, Tracheostomy Respiratory History of Respiratory Disorde: Yes (hx of collapsed lung ) Respiratory Disorders: Pneumonia Cardiovascular History of Cardiac Disorders: Yes Cardiac Disorders: High Cholesterol, Hypertension Neurological History of Neurological Disord: Yes Neurological Disorders: Seizure Disorder Reproductive System Hx Reproductive Disorders: No Genitourinary History of Genitourinary Disor: Yes (Yeast in urine, UTI, inct) Gastrointestinal History of Gastrointestinal Di: Yes (peg tube) Gastrointestinal Disorders: Gastroesophageal Reflux, Gastrointestinal Bleed, Esophageal Varices Musculoskeletal History of Musculoskeletal Dis: Yes (Lt hip fx) Musculoskeletal Disorders: Fractures Endocrine History of Endocrine Disorders: Yes Endocrine Disorders: Diabetes, Insulin dep HEENT History of HEENT Disorders: No Hearing Impairment: Denies Cancer History of Cancer: No Psychosocial History of Psychiatric Problem: Yes Behavioral Health Disorders: Anxiety, Suicide Attempts, Depression Integumentary History of Skin or Integumenta: Yes (red heels, coccyx) Blood Transfusions History of Blood Disorders: No Adverse Reaction to a Blood Tr: No Family Medical History Family Medial History: Hypertension 19 FATHER Physical Exam Vital Signs VS - Last 72 Hours, by Label 07/23/17 14:34 Temp 98.0 Pulse 92 Resp 18 B/P (MAP) 103/80 (88) Capillary Refill : Less Than 3 Seconds General Appearance: WD/WN, no apparent distress HEENT: PERRL/EOMI, normal ENT inspection Neck: non-tender, full range of motion Respiratory: no respiratory distress, no accessory muscle use Cardiovascular: regular rate, rhythm, no murmur Gastrointestinal: normal bowel sounds, soft, other (balloon of the PEG tube was within the soft tissues of the abdominal wall. I was unable to advance this deeper to find that tracked into the stomach. Dr. Cunha was presents to consult with him and he was able to replace this. We will double check with the PEG tube check) Extremities: normal range of motion, non-tender Neurologic/Psychiatric: alert, normal mood/affect, oriented x 3 Skin: normal color, warm/dry Progress/Results/Core Measures Results/Orders My Orders Orders - RADHA REID APRN Fentanyl Injection (Sublimaze Injection (07/23/17 14:45) Peg Tube Check (07/23/17 14:47) Consult Physician (07/23/17 14:47) Medications Given in ED Current Medications Medications Dose Ordered Sig/Juana Route Start Time Stop Time Status Last Admin Dose Admin Fentanyl Citrate 50 mcg ONCE ONCE IM 07/23/17 14:45 07/23/17 14:46 DC 07/23/17 14:45 50 MCG Vital Signs/I&O Vital Sign - Last 12Hours 07/23/17 14:34 Temp 98.0 Pulse 92 Resp 18 B/P (MAP) 103/80 (88) Blood Pressure Mean: 88 Departure Communication (Admissions) Progress Notes Dr. Cunha was able to replace the PEG tube with a 16 Bahamian Merida catheter Impression Impression: Primary Impression: encounter for PEG tube replacement Disposition: 01 HOME, SELF-CARE Condition: Stable Departure-Patient Inst. Decision time for Depature: 14:53 Referrals: RANDI RIBEIRO DO (PCP/Family) Primary Care Physician Patient Instructions: How to Care for Your PEG Tube Add. Discharge Instructions: 1. Call your surgeon for follow-up 2. All discharge instructions reviewed with patient and/or family. Voiced understanding. RADHA REID APRN Jul 23, 2017 14:54
[2017-07-23] MEDS ORDERED: DIATRIZOATE MEGLUM/SODIUM 37% 120 ML (GASTROGRAFIN) NG ONE (15:15)
--- NOTE | 2017-07-23 15:23 | Diagnostic Imaging Report ---
INDICATION: Pain and burning in the patient's PEG tube region. TECHNIQUE: 30 cc of Gastrografin and 30 cc of water was injected into the patient's PEG tube and imaging over the abdomen was performed. FINDINGS: Contrast is identified in the fundus of the stomach. No extravasation is seen. The patient has two stents located in the distal esophagus and stomach. The bowel gas pattern is nonobstructed. IMPRESSION: Satisfactory PEG tube location. Dictated by: Dictated on workstation # [id number]
[2017-07-23 15:30] VITALS: BP 103/80
--- NOTE | 2017-07-23 17:37 | Consultation ---
History of Present Illness History of Present Illness Patient Consulted On(yamile/time) 07/23/17 14:28 Date Seen by Provider: Jul 23, 2017 Time Seen by Provider: 14:28 History of Present Illness Seen and evaluated in ER. Consult requested by Franco Jung for gastrostomy tube dislodged Patient is a 41 year old female who had gastrostomy tube replaced to a button Jun. Patient last couple days has been having pain at site of gastrostomy. Patient states that she had a collapsed lung on the left and had to have stents placed in the distal esophagus. She had gastrostomy tube placed for feeding, but recently has not had to use it due to her ability to eat and drink normally. Patient with moderate pain at site of gastrostomy tube, left upper quadrant. No radiation of pain. Sharp pain. Nothing making it better and nothing worse. Patient with no other complaints. Denies n/v fever sweats chills shortness of breath or chest pain. Allergies and Home Medications Allergies Coded Allergies: Sulfa (Sulfonamide Antibiotics) (Verified Allergy, Mild, Rash, 07/12/16) Home Medications Acetaminophen 500 Mg Tablet, 500 MG PO Q6H PRN for MILD PAIN/FEVER, (Reported) Alprazolam 0.25 Mg Tablet, 0.25 MG PEG BID PRN for ANXIETY, (Reported) Aspirin 81 Mg Tablet.dr, 81 MG PEG DAILY, (Reported) Carvedilol 6.25 Mg Tablet, 6.25 MG PEG BID, (Reported) HOLD FOR SYSTOLIC BP <100 OR PULSE <60 Citalopram Hydrobromide 10 Mg/5 Ml Solution, 20 ML PEG DAILY, (Reported) Docusate Sodium 100 Mg Tablet, 100 MG PEG BID, (Reported) Glucagon,Human Recombinant 1 Mg/Kit Soln, 1 MG IM UD PRN for HYPOGLYCEMIA, ( Reported) Guaifenesin/Dextromethorphan 237 Ml Liquid, 10 ML PO Q4H PRN for COUGH, ( Reported) Guaifenesin/Dextromethorphan 1 Each Tab.er.12h, 1 TAB PEG BID, (Reported) Insulin Regular, Human 1,000 Units/10 Ml Soln, SQ QID, (Reported) 60-200 =0 UNITS 201-250=3 UNITS 251-300=5 UNITS 301-350=7 UNITS 351-400=9 UNITS CALL MD IF OVER 400 Lovastatin 10 Mg Tablet, 10 MG PEG HS, (Reported) Pantoprazole Sodium 40 Mg , 40 MG PEG DAILY, (Reported) Polyethylene Glycol 3350 119 Gm Powder, 17 GM PEG DAILY PRN for CONSTIPATION- 1ST LINE, (Reported) Past Fmxktdy-Frkdit-Idorgf Hx Patient Social History Alcohol Use: Denies Use Recreational Drug Use: No Drug of Choice: polydrug abuse, meth Type Used: Cigarettes 2nd Hand Smoke Exposure: No Recent Foreign Travel: No Contact w/Someone Who Travel: No Recent Infectious Disease Expo: No Recent Hopitalizations: No Immunizations Up To Date Tetanus Booster (TDap): Unknown Date of Pneumonia Vaccine: Aug 06, 2016 Date of Influenza Vaccine: Jun 24, 2016 Seasonal Allergies Seasonal Allergies: No Surgeries History of Surgeries: Yes (ovarian cyst removed with ovary, L hip fx, peg tube) Surgeries: Abdominal, Tracheostomy Respiratory History of Respiratory Disorde: Yes (hx of collapsed lung ) Respiratory Disorders: Pneumonia Cardiovascular History of Cardiac Disorders: Yes Cardiac Disorders: High Cholesterol, Hypertension Neurological History of Neurological Disord: Yes Neurological Disorders: Seizure Disorder Reproductive System Hx Reproductive Disorders: No Genitourinary History of Genitourinary Disor: Yes (Yeast in urine, UTI, inct) Gastrointestinal History of Gastrointestinal Di: Yes (peg tube) Gastrointestinal Disorders: Gastroesophageal Reflux, Gastrointestinal Bleed, Esophageal Varices Musculoskeletal History of Musculoskeletal Dis: Yes (Lt hip fx) Musculoskeletal Disorders: Fractures Endocrine History of Endocrine Disorders: Yes Endocrine Disorders: Diabetes, Insulin dep HEENT History of HEENT Disorders: No Hearing Impairment: Denies Cancer History of Cancer: No Psychosocial History of Psychiatric Problem: Yes Behavioral Health Disorders: Anxiety, Suicide Attempts, Depression Integumentary History of Skin or Integumenta: Yes (red heels, coccyx) Blood Transfusions History of Blood Disorders: No Adverse Reaction to a Blood Tr: No Family Medical History Significant Family History: No Pertinent Family Hx Family Medial History: Hypertension 19 FATHER Review of Systems-General Constitutional: no symptoms reported EENTM: no symptoms reported Respiratory: no symptoms reported Cardiovascular: no symptoms reported Gastrointestinal: see HPI Genitourinary: no symptoms reported Musculoskeletal: no symptoms reported Skin: no symptoms reported Psychiatric/Neurological: No Symptoms Reported Physical Exam-General Problems Physical Exam Vital Signs Vital Sign - Last 12Hours 07/23/17 07/23/17 14:34 15:30 Temp 98.0 Pulse 92 Resp 18 B/P (MAP) 103/80 (88) Pulse Ox 98 Capillary Refill : Less Than 3 Seconds General Appearance: no apparent distress HEENT: PERRL/EOMI Neck: supple Respiratory: no respiratory distress, no accessory muscle use Cardiovascular: regular rate, rhythm Gastrointestinal: soft, tenderness (slight tenderness at gastrostomy site, no erythema or signs of infection.) Rectal: deferred Back: no CVA tenderness Extremities: non-tender Neurologic/Psychiatric: alert, normal mood/affect, oriented x 3 Skin: warm/dry Lymphatic: no adenopathy Assessment/Plan Assessment/Plan Assessment/Plan dislodged gastrostomy tube abdominal pain left upper quadrant patient with button gastrostomy tube which was dislodged. pain at location appears that the tube probably migrated to subcutaneous tissue. I discussed replacing the tube which she understands risks and benefits. Franco Jung has tried to replace the button gastrostomy tube and was not successful. I tried to use the button gastrostomy tube to replace but track feels to be too long. I think the balloon was in the subcutaneous space. I then used a Merida catheter to advance through the tract, I got minimal resistance when doing so. I then inflated the balloon. Patient tolerated replacement without any difficulty. Patient to be sent for Gastrografin study to evaluate for placement. Tube check demonstrated tube in place. Okay to mo home. EMMA SIMENTAL DO Jul 23, 2017 17:37
== END 2017-07-23 15:30 | disposition home or self-care (01) ==
LOC: EDUNIT# 13:49 → ER 13:50
DX: K94.23 Gastrostomy malfunction (principal); E78.00 Pure hypercholesterolemia, unspecified; I10 Essential (primary) hypertension; G43.909 Migraine, unspecified, not intractable, without status migrainosus; E11.9 Type 2 diabetes mellitus without complications; K21.9 Gastro-esophageal reflux disease without esophagitis; F19.10 Other psychoactive substance abuse, uncomplicated; F15.10 Other stimulant abuse, uncomplicated; Z79.82 Long term (current) use of aspirin; Z87.01 Personal history of pneumonia (recurrent); Z93.0 Tracheostomy status; Z87.19 Personal history of other diseases of the digestive system; Z87.440 Personal history of urinary (tract) infections; Z79.4 Long term (current) use of insulin
CPT/HCPCS: 49465; 96372; 99284

== ENCOUNTER 2017-07-23 22:18 | Emergency (ER) | payer MEDICAID ==
[~2017-07-23] VITALS: Ht 162.6 cm; Wt 47.4 kg
--- OUTSIDE RECORDS SUMMARY | 2017-07-23 22:23 | XMS REPORT | Clinical Summary ---
Author Author [facility] Organization [facility] Address Unknown Phone Unavailable Care Team Providers Care Office Machinery Or Equipment Installer Name Role Phone Self, Referral PCP Unavailable Source Comments Some departments are not documenting in the electronic medical record. If you do not see the information that you expected, contact Release of Information in the Health Information Management department at [phone] for further assistance in locating additional records.[facility] Allergies Not on File Current Medications [...]
[2017-07-23 22:25] VITALS: BP 123/76
--- NOTE | 2017-07-23 22:29 | ED GI ---
General Chief Complaint: Catheter/Drain/Tube Problems Stated Complaint: PEG TUBE OUT Nursing Triage Note: PT PULLED FEEDING TUBE OUT. Sepsis Screen: No Definite Risk Source of Information: Patient Exam Limitations: No Limitations History of Present Illness Date Seen by Provider: Jul 23, 2017 Time Seen by Provider: 22:27 Initial Comments Patient was in ER earlier today to have her PEG tube replaced. This was done using a Merida catheter by Dr. Cunha. She does not actually use the PEG tube that she is able to swallow eat and drink.. Tonight this came out. Timing/Duration: 1/2 Hour Severity/Quality: Moderate Radiation: No Radiation Activities at Onset: None Allergies and Home Medications Allergies Coded Allergies: Sulfa (Sulfonamide Antibiotics) (Verified Allergy, Mild, Rash, 07/12/16) Home Medications Acetaminophen 500 Mg Tablet, 500 MG PO Q6H PRN for MILD PAIN/FEVER, (Reported) Alprazolam 0.25 Mg Tablet, 0.25 MG PEG BID PRN for ANXIETY, (Reported) Aspirin 81 Mg Tablet., 81 MG PEG DAILY, (Reported) Carvedilol 6.25 Mg Tablet, 6.25 MG PEG BID, (Reported) HOLD FOR SYSTOLIC BP <100 OR PULSE <60 Citalopram Hydrobromide 10 Mg/5 Ml Solution, 20 ML PEG DAILY, (Reported) Docusate Sodium 100 Mg Tablet, 100 MG PEG BID, (Reported) Glucagon,Human Recombinant 1 Mg/Kit Soln, 1 MG IM UD PRN for HYPOGLYCEMIA, ( Reported) Guaifenesin/Dextromethorphan 237 Ml Liquid, 10 ML PO Q4H PRN for COUGH, ( Reported) Guaifenesin/Dextromethorphan 1 Each Tab.er.12h, 1 TAB PEG BID, (Reported) Insulin Regular, Human 1,000 Units/10 Ml Soln, SQ QID, (Reported) 60-200 =0 UNITS 201-250=3 UNITS 251-300=5 UNITS 301-350=7 UNITS 351-400=9 UNITS CALL MD IF OVER 400 Lovastatin 10 Mg Tablet, 10 MG PEG HS, (Reported) Pantoprazole Sodium 40 Mg Granpdionisio., 40 MG PEG DAILY, (Reported) Polyethylene Glycol 3350 119 Gm Powder, 17 GM PEG DAILY PRN for CONSTIPATION- 1ST LINE, (Reported) Review of Systems Constitutional: see HPI EENTM: No Symptoms Reported Respiratory: No Symptoms Reported Cardiovascular: No Symptoms Reported Gastrointestinal: See HPI, Abdominal Pain Genitourinary: No Symptoms Reported Musculoskeletal: no symptoms reported Skin: no symptoms reported Psychiatric/Neurological: No Symptoms Reported Endocrine: No Symptoms Reported Hematologic/Lymphatic: No Symptoms Reported Past Btpjztq-Litzxf-Okypps Hx Patient Social History Alcohol Use: Denies Use Recreational Drug Use: No Drug of Choice: polydrug abuse, meth Type Used: Cigarettes 2nd Hand Smoke Exposure: No Recent Foreign Travel: No Contact w/Someone Who Travel: No Recent Infectious Disease Expo: No Recent Hopitalizations: No Immunizations Up To Date Tetanus Booster (TDap): Unknown Date of Pneumonia Vaccine: Aug 06, 2016 Date of Influenza Vaccine: Jun 24, 2016 Seasonal Allergies Seasonal Allergies: No Surgeries History of Surgeries: Yes (ovarian cyst removed with ovary, L hip fx, peg tube) Surgeries: Abdominal, Tracheostomy Respiratory History of Respiratory Disorde: Yes (hx of collapsed lung ) Respiratory Disorders: Pneumonia Cardiovascular History of Cardiac Disorders: Yes Cardiac Disorders: High Cholesterol, Hypertension Neurological History of Neurological Disord: Yes Neurological Disorders: Seizure Disorder Reproductive System : No Hx Reproductive Disorders: No Genitourinary History of Genitourinary Disor: Yes (Yeast in urine, UTI, inct) Gastrointestinal History of Gastrointestinal Di: Yes (peg tube) Gastrointestinal Disorders: Gastroesophageal Reflux, Gastrointestinal Bleed, Esophageal Varices Musculoskeletal History of Musculoskeletal Dis: Yes (Lt hip fx) Musculoskeletal Disorders: Fractures Endocrine History of Endocrine Disorders: Yes Endocrine Disorders: Diabetes, Insulin dep HEENT History of HEENT Disorders: No Hearing Impairment: Denies Cancer History of Cancer: No Psychosocial History of Psychiatric Problem: Yes Behavioral Health Disorders: Anxiety, Suicide Attempts, Depression Integumentary History of Skin or Integumenta: Yes (red heels, coccyx) Blood Transfusions History of Blood Disorders: No Adverse Reaction to a Blood Tr: No Family Medical History Significant Family History: No Pertinent Family Hx Family Medial History: Hypertension 19 FATHER Physical Exam Vital Signs VS - Last 72 Hours, by Label 07/23/17 22:20 Temp 97.8 Pulse 103 Resp 12 B/P (MAP) 123/76 (92) Pulse Ox 93 O2 Delivery Room Air Capillary Refill : Less Than 3 Seconds General Appearance: WD/WN, no apparent distress HEENT: PERRL/EOMI, normal ENT inspection Neck: non-tender, full range of motion Respiratory: no respiratory distress, no accessory muscle use Cardiovascular: regular rate, rhythm, no murmur Gastrointestinal: normal bowel sounds, non tender Neurologic/Psychiatric: alert, normal mood/affect, oriented x 3 Skin: normal color, warm/dry Exam Comments I was able to very easily inserted a larger 22 [place] Merida catheter with a 30 cc syringe filled the balloon with 20 cc of sterile saline. Progress/Results/Core Measures Results/Orders Vital Signs/I&O Vital Sign - Last 12Hours 07/23/17 22:20 Temp 97.8 Pulse 103 Resp 12 B/P (MAP) 123/76 (92) Pulse Ox 93 O2 Delivery Room Air Blood Pressure Mean: 92 Departure Impression Impression: Primary Impression: PEG tube malfunction Disposition: 03 XFER SNF Condition: Improved Departure-Patient Inst. Decision time for Depature: 22:29 Referrals: RANDI RIBEIRO DO (PCP) Primary Care Physician Patient Instructions: How to Care for Your PEG Tube RADHA REID APRN Jul 23, 2017 22:29
== END 2017-07-23 22:25 ==
LOC: EDUNIT# 22:18 → ER 22:19
DX: K94.23 Gastrostomy malfunction (principal); E78.00 Pure hypercholesterolemia, unspecified; I10 Essential (primary) hypertension; G40.909 Epilepsy, unspecified, not intractable, without status epilepticus; K21.9 Gastro-esophageal reflux disease without esophagitis; E11.9 Type 2 diabetes mellitus without complications; F41.9 Anxiety disorder, unspecified; F32.9 Major depressive disorder, single episode, unspecified; F19.10 Other psychoactive substance abuse, uncomplicated; F15.10 Other stimulant abuse, uncomplicated; Z93.0 Tracheostomy status; Z87.448 Personal history of other diseases of urinary system; Z91.5 Personal history of self-harm; Z87.01 Personal history of pneumonia (recurrent); Z87.19 Personal history of other diseases of the digestive system; Z79.82 Long term (current) use of aspirin; Z88.2 Allergy status to sulfonamides; Z79.4 Long term (current) use of insulin
CPT/HCPCS: 99283

== ENCOUNTER 2017-07-25 12:04 | Emergency (ER) | payer MEDICAID ==
[~2017-07-25] VITALS: Ht 157.5 cm; Wt 51.7 kg
--- OUTSIDE RECORDS SUMMARY | 2017-07-25 12:09 | XMS REPORT | Clinical Summary ---
Author Author [facility] Organization [facility] Address Unknown Phone Unavailable Care Team Providers Care Retail Center Receptionist Name Role Phone Self, Referral PCP Unavailable Source Comments Some departments are not documenting in the electronic medical record. If you do not see the information that you expected, contact Release of Information in the Health Information Management department at [phone] for further assistance in locating additional records.[facility] Allergies Not on File Current Medications Not [...]
[2017-07-25 12:18] VITALS: BP 94/75
--- NOTE | 2017-07-25 12:18 | ED GI ---
General Chief Complaint: Catheter/Drain/Tube Problems Stated Complaint: PULLED OUT PEG TUBE Source of Information: Patient Exam Limitations: No Limitations History of Present Illness Date Seen by Provider: Jul 25, 2017 Time Seen by Provider: 12:15 Initial Comments To ER after having pulled out her PEG tube accidentally just prior to arrival. This will be the third time in 3 days. Timing/Duration: 1-2 Days Severity/Quality: Moderate Allergies and Home Medications Allergies Coded Allergies: Sulfa (Sulfonamide Antibiotics) (Verified Allergy, Mild, Rash, 07/12/16) Home Medications Acetaminophen 500 Mg Tablet, 500 MG PO Q6H PRN for MILD PAIN/FEVER, (Reported) Alprazolam 0.25 Mg Tablet, 0.25 MG PEG BID PRN for ANXIETY, (Reported) Aspirin 81 Mg Tablet.dr, 81 MG PEG DAILY, (Reported) Carvedilol 6.25 Mg Tablet, 6.25 MG PEG BID, (Reported) HOLD FOR SYSTOLIC BP <100 OR PULSE <60 Citalopram Hydrobromide 10 Mg/5 Ml Solution, 20 ML PEG DAILY, (Reported) Docusate Sodium 100 Mg Tablet, 100 MG PEG BID, (Reported) Glucagon,Human Recombinant 1 Mg/Kit Soln, 1 MG IM UD PRN for HYPOGLYCEMIA, ( Reported) Guaifenesin/Dextromethorphan 237 Ml Liquid, 10 ML PO Q4H PRN for COUGH, ( Reported) Guaifenesin/Dextromethorphan 1 Each Tab.er.12h, 1 TAB PEG BID, (Reported) Insulin Regular, Human 1,000 Units/10 Ml Soln, SQ QID, (Reported) 60-200 =0 UNITS 201-250=3 UNITS 251-300=5 UNITS 301-350=7 UNITS 351-400=9 UNITS CALL MD IF OVER 400 Lovastatin 10 Mg Tablet, 10 MG PEG HS, (Reported) Pantoprazole Sodium 40 Mg Granpkt.dr, 40 MG PEG DAILY, (Reported) Polyethylene Glycol 3350 119 Gm Powder, 17 GM PEG DAILY PRN for CONSTIPATION- 1ST LINE, (Reported) Review of Systems Constitutional: see HPI EENTM: No Symptoms Reported Respiratory: No Symptoms Reported Cardiovascular: No Symptoms Reported Genitourinary: No Symptoms Reported Musculoskeletal: no symptoms reported Skin: no symptoms reported Psychiatric/Neurological: No Symptoms Reported Endocrine: No Symptoms Reported Past Wktsrqs-Gdugbh-Whnolz Hx Patient Social History Drug of Choice: polydrug abuse, meth Type Used: Cigarettes 2nd Hand Smoke Exposure: No Recent Foreign Travel: No Contact w/Someone Who Travel: No Recent Hopitalizations: No Physical Abuse: No Sexual Abuse: No Immunizations Up To Date Tetanus Booster (TDap): Unknown Date of Pneumonia Vaccine: Aug 06, 2016 Date of Influenza Vaccine: Jun 24, 2016 Seasonal Allergies Seasonal Allergies: No Surgeries History of Surgeries: Yes (ovarian cyst removed with ovary, L hip fx, peg tube) Surgeries: Abdominal, Tracheostomy Respiratory History of Respiratory Disorde: Yes (hx of collapsed lung ) Respiratory Disorders: Pneumonia Cardiovascular History of Cardiac Disorders: Yes Cardiac Disorders: High Cholesterol, Hypertension Neurological History of Neurological Disord: Yes Neurological Disorders: Seizure Disorder Reproductive System Hx Reproductive Disorders: No Genitourinary History of Genitourinary Disor: Yes (Yeast in urine, UTI, inct) Gastrointestinal History of Gastrointestinal Di: Yes (peg tube) Gastrointestinal Disorders: Gastroesophageal Reflux, Gastrointestinal Bleed, Esophageal Varices Musculoskeletal History of Musculoskeletal Dis: Yes (Lt hip fx) Musculoskeletal Disorders: Fractures Endocrine History of Endocrine Disorders: Yes Endocrine Disorders: Diabetes, Insulin dep HEENT History of HEENT Disorders: No Hearing Impairment: Denies Cancer History of Cancer: No Psychosocial History of Psychiatric Problem: Yes Behavioral Health Disorders: Anxiety, Suicide Attempts, Depression Suicide Risk Score: 0 Integumentary History of Skin or Integumenta: Yes (red heels, coccyx) Blood Transfusions History of Blood Disorders: No Adverse Reaction to a Blood Tr: No Family Medical History Significant Family History: No Pertinent Family Hx Family Medial History: Hypertension 19 FATHER Physical Exam Vital Signs VS - Last 72 Hours, by Label 07/25/17 07/25/17 12:05 12:18 Temp 97.5 97.5 Pulse 90 90 Resp 24 24 B/P (MAP) 94/75 (81) Pulse Ox 94 94 O2 Delivery Room Air Capillary Refill : General Appearance: WD/WN, no apparent distress HEENT: normal ENT inspection Respiratory: normal breath sounds, no respiratory distress, no accessory muscle use Cardiovascular: regular rate, rhythm, no murmur Gastrointestinal: normal bowel sounds, non tender, soft Extremities: normal range of motion, non-tender Neurologic/Psychiatric: alert, normal mood/affect, oriented x 3 Skin: normal color, warm/dry Exam Comments 24 Japanese PEG tube easily replaced. Inflated the balloon with 6 mL of saline Progress/Results/Core Measures Results/Orders Vital Signs/I&O Vital Sign - Last 12Hours 07/25/17 07/25/17 12:05 12:18 Temp 97.5 97.5 Pulse 90 90 Resp 24 24 B/P (MAP) 94/75 (81) Pulse Ox 94 94 O2 Delivery Room Air Departure Impression Impression: Primary Impression: PEG tube malfunction Disposition: HOME, SELF-CARE Condition: Stable Departure-Patient Inst. Decision time for Depature: 12:20 Referrals: RANDI RIBEIRO DO (PCP/Family) Primary Care Physician Patient Instructions: How to Care for Your PEG Tube Add. Discharge Instructions: All discharge instructions reviewed with patient and/or family. Voiced understanding. RADHA REID APRN Jul 25, 2017 12:18
== END 2017-07-25 12:22 | disposition home or self-care (01) ==
LOC: EDUNIT# 12:04 → ER 12:06
DX: K94.23 Gastrostomy malfunction (principal); F41.9 Anxiety disorder, unspecified; F32.9 Major depressive disorder, single episode, unspecified; E11.9 Type 2 diabetes mellitus without complications; K21.9 Gastro-esophageal reflux disease without esophagitis; E78.00 Pure hypercholesterolemia, unspecified; I10 Essential (primary) hypertension; F15.90 Other stimulant use, unspecified, uncomplicated; Z79.82 Long term (current) use of aspirin; Z87.440 Personal history of urinary (tract) infections; Z87.81 Personal history of (healed) traumatic fracture; Z91.5 Personal history of self-harm; Z87.09 Personal history of other diseases of the respiratory system; Z87.42 Personal history of other diseases of the female genital tract; Z79.4 Long term (current) use of insulin
CPT/HCPCS: 99281

== ENCOUNTER → 2017-08-14 | Outpatient (CLI) | payer MEDICAID ==
--- NOTE | 2017-08-14 15:50 | Diagnostic Imaging Report ---
INDICATION: Pneumonia. Cough. Congestion. COMPARISON: 05/14/2017. FINDINGS: Frontal and lateral radiographic views of the chest were obtained incher normal cardiac silhouette and pulmonary vasculature. Since the previous exam, there has been interval placement of a second stent within the mid esophagus. No unexpected radiopaque foreign bodies are identified. Lungs are clear and show no focal consolidations, large effusions, or pneumothoraces. Bony structures show no gross acute abnormalities. IMPRESSION: 1. No acute cardiopulmonary process. 2. Interval placement of a second more proximal esophageal stent. Dictated by: Dictated on workstation # [id number]
== END ==
LOC: RAD 15:08
PROVIDERS: ATTEND Family Medicine
DX: J18.9 Pneumonia, unspecified organism (principal); Z96.89 Presence of other specified functional implants
CPT/HCPCS: 71046

== ENCOUNTER → 2017-08-28 | Outpatient (CLI) | payer MEDICAID ==
--- NOTE | 2017-08-28 11:25 | Diagnostic Imaging Report ---
INDICATION: Cold. COMPARISON: 08/14/2017. FINDINGS: Two views of the chest are obtained. Heart size is normal. The pulmonary vessels appear unremarkable. There is no pneumothorax, mediastinal widening or pleural fluid. There is a long double esophageal stent which is unchanged in appearance. The osseous structures appear unremarkable. IMPRESSION: No acute cardiopulmonary abnormalities demonstrated. No significant interval change from the prior study. Dictated by: Dictated on workstation # [id number]
== END ==
LOC: RAD 10:43
PROVIDERS: ATTEND Family Medicine
DX: J18.9 Pneumonia, unspecified organism (principal)
CPT/HCPCS: 71046

== ENCOUNTER 2017-08-30 01:23 | Observation (INO) | payer MEDICAID ==
[~2017-08-30] VITALS: Ht 157.5 cm; Wt 51.9 kg
[~2017-08-30 01:23] MED LIST changes: -ALPR0.254 PEG; +ALPR0.254 PO; -ASPI-983 PEG; -DOCU100T2 PEG; +DOCU100T2 PO; -GUAI-367 PEG; +GUAI-367 PO; -LOVA10TA PEG; +LOVA10TA PO; -POLY119P5 PEG; +POLY119P5 PO
[2017-08-30] MEDS ORDERED: LACTATED RINGERS 1,000 ML IV ONE ×2 (01:42→05:19)
[2017-08-30] MEDS ORDERED: cefTRIAXone INJECTION 1,000 MG in NS (IVPB) 100 ML IV STA (01:42)
[2017-08-30] MEDS ORDERED: RT-ALBUTEROL/IPRATROPIUM 3 ML (DUONEB) VIAL INH ONE (01:45)
--- NOTE | 2017-08-30 01:51 | ED Respiratory ---
General Chief Complaint: Respiratory Problems Stated Complaint: RESPIRATORY ISSUES Nursing Triage Note: brought in by [facility] for low blood suger, respiratory difficulty. Source: patient, EMS Exam Limitations: no limitations History of Present Illness Date Seen by Provider: Aug 30, 2017 Time Seen by Provider: 01:25 Initial Comments Patient presents to the ER by EMS with a chief complaint that she was asleep in her bed and nursing woke her up because a routine check her blood sugars showed her sugar to be 35. EMS reports when they got there she was alert, awake and oriented 3 but her blood sugar was 25 by their Accu-Chek. They gave her an amp of sugar. She is insulin-dependent diabetic. She says her blood sugars have not been too high or too low recently. However for the last week she says she's felt malaise, productive cough and a little short of air. Yesterday she had blood drawn and a chest x-ray shot as well as was started on azithromycin by her primary care physician but she has not heard the results of any of this workup yet. She does not think she's had any fevers or chills. She has had no nausea, vomiting, diarrhea, rash. Patient says she still smokes cigarettes but she is not sure how much. Allergies and Home Medications Allergies Coded Allergies: Sulfa (Sulfonamide Antibiotics) (Verified Allergy, Mild, Rash, 07/12/16) Home Medications Acetaminophen 500 Mg Tablet, 500 MG PO Q6H PRN for MILD PAIN/FEVER, (Reported) Alprazolam 0.25 Mg Tablet, 0.25 MG PEG BID PRN for ANXIETY, (Reported) Aspirin 81 Mg Tablet.dr, 81 MG PEG DAILY, (Reported) Carvedilol 6.25 Mg Tablet, 6.25 MG PEG BID, (Reported) HOLD FOR SYSTOLIC BP <100 OR PULSE <60 Citalopram Hydrobromide 10 Mg/5 Ml Solution, 20 ML PEG DAILY, (Reported) Docusate Sodium 100 Mg Tablet, 100 MG PEG BID, (Reported) Glucagon,Human Recombinant 1 Mg/Kit Soln, 1 MG IM UD PRN for HYPOGLYCEMIA, ( Reported) Guaifenesin/Dextromethorphan 237 Ml Liquid, 10 ML PO Q4H PRN for COUGH, ( Reported) Guaifenesin/Dextromethorphan 1 Each Tab.er.12h, 1 TAB PEG BID, (Reported) Insulin Regular, Human 1,000 Units/10 Ml Soln, SQ QID, (Reported) 60-200 =0 UNITS 201-250=3 UNITS 251-300=5 UNITS 301-350=7 UNITS 351-400=9 UNITS CALL MD IF OVER 400 Lovastatin 10 Mg Tablet, 10 MG PEG HS, (Reported) Pantoprazole Sodium 40 Mg Granpkt.dr, 40 MG PEG DAILY, (Reported) Polyethylene Glycol 3350 119 Gm Powder, 17 GM PEG DAILY PRN for CONSTIPATION- 1ST LINE, (Reported) Patient Home Medication List Home Medication List Reviewed: Yes Constitutional: No chills, No fever, malaise EENTM: No ear discharge, No ear pain, No eye pain Respiratory: see HPI, cough, short of breath Cardiovascular: No chest pain, No edema, No syncope Gastrointestinal: No abdominal pain, No constipation, No diarrhea, No nausea Genitourinary: No discharge, No dysuria Musculoskeletal: No back pain, No joint pain Skin: No pruritus, No rash Psychiatric/Neurological: Denies Headache, Denies Numbness Past Ubcmzfn-Utoimi-Fomupj Hx Patient Social History Alcohol Use: Denies Use Recreational Drug Use: No Drug of Choice: polydrug abuse, meth Smoking Status: Current Everyday Smoker Type Used: Cigarettes 2nd Hand Smoke Exposure: No Recent Foreign Travel: No Contact w/Someone Who Travel: No Recent Infectious Disease Expo: No Recent Hopitalizations: Yes Immunizations Up To Date Tetanus Booster (TDap): Unknown Date of Pneumonia Vaccine: Aug 06, 2016 Date of Influenza Vaccine: Jun 24, 2016 Seasonal Allergies Seasonal Allergies: No Surgeries History of Surgeries: Yes (ovarian cyst removed with ovary, L hip fx, peg tube) Surgeries: Abdominal, Tracheostomy Respiratory History of Respiratory Disorde: Yes (hx of collapsed lung ) Respiratory Disorders: Pneumonia Cardiovascular History of Cardiac Disorders: Yes Cardiac Disorders: High Cholesterol, Hypertension Neurological History of Neurological Disord: Yes Neurological Disorders: Seizure Disorder Reproductive System : No Hx Reproductive Disorders: No Genitourinary History of Genitourinary Disor: Yes (Yeast in urine, UTI, inct) Gastrointestinal History of Gastrointestinal Di: Yes (peg tube) Gastrointestinal Disorders: Gastroesophageal Reflux, Gastrointestinal Bleed, Esophageal Varices Musculoskeletal History of Musculoskeletal Dis: Yes (Lt hip fx) Musculoskeletal Disorders: Fractures Endocrine History of Endocrine Disorders: Yes Endocrine Disorders: Diabetes, Insulin dep HEENT History of HEENT Disorders: No Hearing Impairment: Denies Cancer History of Cancer: No Psychosocial History of Psychiatric Problem: Yes Behavioral Health Disorders: Anxiety, Suicide Attempts, Depression Integumentary History of Skin or Integumenta: Yes (red heels, coccyx) Blood Transfusions History of Blood Disorders: No Adverse Reaction to a Blood Tr: No Family Medical History Significant Family History: No Pertinent Family Hx Family Medial History: Hypertension 19 FATHER Physical Exam Vital Signs Vital Signs - First Documented 08/30/17 08/30/17 01:26 01:40 Temp 96.7 Pulse 84 Resp 18 B/P (MAP) 127/91 (103) Pulse Ox 93 O2 Delivery Room Air O2 Flow Rate 2.00 Capillary Refill : Less Than 3 Seconds General Appearance: WD/WN, no apparent distress Eyes: Bilateral Eye Normal Inspection, Bilateral Eye PERRL, Bilateral Eye EOMI HEENT: PERRL/EOMI, normal ENT inspection, TMs normal, pharynx normal ( oropharynx is only mildly dry) Neck: non-tender, normal inspection Respiratory: chest non-tender, no respiratory distress, no accessory muscle use , rales, rhonchi (bilaterally) Cardiovascular: normal peripheral pulses, regular rate, rhythm, no edema Gastrointestinal: normal bowel sounds, non tender, soft Extremities: no pedal edema, no calf tenderness, normal capillary refill Neurologic/Psychiatric: alert, normal mood/affect, oriented x 3 Skin: normal color, warm/dry Focused Exam Evaluation Lactate Level Laboratory Tests 08/30/17 01:35: Lactic Acid Level 0.92 Lactic Acid Level Laboratory Tests Test 08/30/17 01:35 Lactic Acid Level 0.92 MMOL/L (0.50-2.00) Progress/Results/Core Measures Suspected Sepsis Recent Fever Within 48 Hours: No Infection Criteria Present: Documented Infection New/Unexplained Altered Menta: No Sepsis Screen: No Definite Risk Sepsis Diagnosis: SIRS Temperature:96.7 Pulse: 84 Respiratory Rate: 18 Laboratory Tests 08/30/17 01:35: White Blood Count 8.5 Blood Pressure 127 /91 Mean: 103 Laboratory Tests 08/30/17 01:35: Lactic Acid Level 0.92 Laboratory Tests 08/30/17 01:35: Creatinine 0.60, INR Comment 1.0, Platelet Count 353, Total Bilirubin 0.2 Results/Orders Lab Results Laboratory Tests Test 08/30/17 01:32 08/30/17 01:35 Range/Units Glucometer 303 H 70-110 MG/DL White Blood Count 8.5 4.3-11.0 10^3/uL Red Blood Count 3.92 L 4.35-5.85 10^6/uL Hemoglobin 10.4 L 11.5-16.0 G/DL Hematocrit 34 L 35-52 % Mean Corpuscular Volume 86 80-99 FL Mean Corpuscular Hemoglobin 27 25-34 PG Mean Corpuscular Hemoglobin Concent 31 L 32-36 G/DL Red Cell Distribution Width 15.9 H 10.0-14.5 % Platelet Count 353 130-400 10^3/uL Mean Platelet Volume 10.0 7.4-10.4 FL Neutrophils (%) (Auto) 58 42-75 % Lymphocytes (%) (Auto) 27 12-44 % Monocytes (%) (Auto) 12 0-12 % Eosinophils (%) (Auto) 3 0-10 % Basophils (%) (Auto) 0 0-10 % Neutrophils # (Auto) 4.9 1.8-7.8 X 10^3 Lymphocytes # (Auto) 2.3 1.0-4.0 X 10^3 Monocytes # (Auto) 1.1 H 0.0-1.0 X 10^3 Eosinophils # (Auto) 0.2 0.0-0.3 10^3/uL Basophils # (Auto) 0.0 0.0-0.1 10^3/uL Prothrombin Time 13.4 12.2-14.7 SEC INR Comment 1.0 0.8-1.4 Activated Partial Thromboplast Time 32 24-35 SEC Sodium Level 138 135-145 MMOL/L Potassium Level 3.6 3.6-5.0 MMOL/L Chloride Level 102 98-107 MMOL/L Carbon Dioxide Level 28 21-32 MMOL/L Anion Gap 8 5-14 MMOL/L Blood Urea Nitrogen 17 7-18 MG/DL Creatinine 0.60 0.60-1.30 MG/DL Estimat Glomerular Filtration Rate > 60 BUN/Creatinine Ratio 28 Glucose Level 237 H 70-105 MG/DL Lactic Acid Level 0.92 0.50-2.00 MMOL/L Calcium Level 8.7 8.5-10.1 MG/DL Total Bilirubin 0.2 0.1-1.0 MG/DL Aspartate Amino Transf (AST/SGOT) 12 5-34 U/L Alanine Aminotransferase (ALT/SGPT) 9 0-55 U/L Alkaline Phosphatase 123 40-136 U/L B-Type Natriuretic Peptide < 10.0 <100.0 PG/ML Total Protein 6.9 6.4-8.2 GM/DL Albumin 3.2 3.2-4.5 GM/DL Micro Results Microbiology 08/30/17 Influenza Types A,B Antigen (ROMANA) - Final, Complete My Orders Orders - PATRICIA MURGUIA Cbc With Automated Diff (08/30/17:42) Comprehensive Metabolic Panel (08/30/17:42) Lactic Acid Analyzer (08/30/17:42) Blood Culture (08/30/17:42) Sputum Culture (08/30/17:42) Ua Culture If Indicated (08/30/17:42) Protime With Inr (08/30/17:42) Partial Thromboplastin Time (08/30/17:42) O2 (08/30/17:42) Saline Lock/Iv-Start (08/30/17:42) Saline Lock/Iv-Start (08/30/17 01:42) Vital Signs Adult Sepsis Patie Q1H (08/30/17:42) Ceftriaxone Injection (Rocephin Injectio (08/30/17:42) Remove Rings In Anticipation O (08/30/17:42) Influenza A And B Antigens (08/30/17 01:42) Saline Lock/Iv-Start (08/30/17:42) Lactated Ringers (Lr 1000 Ml Iv Solution (08/30/17:42) BNP (08/30/17 01:42) Chest Pa/Lat (2 View) (08/30/17:42) Albuterol/Ipra Inhalation Soln (Duoneb I (08/30/17 01:45) Svn Sm Volume Nebulizer Rt-Rfs (08/30/17 01:42) Accucheck Stat ONCE (08/30/17 01:42) Accucheck Stat ONCE (08/30/17 03:55) Medications Given in ED Current Medications Medications Dose Ordered Sig/Juana Route Start Time Stop Time Status Last Admin Dose Admin Albuterol/ Ipratropium 3 ml ONCE ONCE INH 08/30/17 01:45 08/30/17 01:46 DC 08/30/17 02:13 3 ML Lactated Ringer's 1,000 ml @ 0 mls/hr Q0M ONCE IV 08/30/17 01:42 08/30/17 01:46 DC 08/30/17 01:57 0 MLS/HR Vital Signs/I&O Vital Sign - Last 12Hours 08/30/17 08/30/17 08/30/17 01:26 01:40 02:14 Temp 96.7 Pulse 84 Resp 18 B/P (MAP) 127/91 (103) Pulse Ox 93 96 99 O2 Delivery Room Air Nasal Cannula Nasal Cannula O2 Flow Rate 2.00 1.00 Capillary Refill : Less Than 3 Seconds Blood Pressure Mean: 103 Progress Note #1: Time: 01:49 Progress Note Patient is not tachycardic and her sats are okay. However her blood sugars are low, she's now corrected to 303 after an amp of glucose was administered on route. Patient is not in any acute distress however her lungs are probably rhonchus from across the room. She is on azithromycin 1 day and may need dual coverage. We'll get a chest x-ray and lab work. Progress Note #2: Time: 03:53 Progress Note BNP and white blood cells are not elevated. Her anemia is stable and actually improved from her last draw. Chest x-ray is stable from last time no evidence of infiltrate. Most likely she has bronchitis and azithromycin is a very appropriate choice and we'll let her continue that outpatient. Her blood sugar has gone back down to 49 so she is still lucid and sober any give her some orange juice and speak to her doctor about doing an observation to manage her hypoglycemia. Diagnostic Imaging Diagonstic Imaging: Xray Plain Films/CT/US/NM/MRI: chest (2v) Comments No acute cardiopulmonary processes noted. Double esophageal stent noted in place. Unchanged since 2 days ago x-ray 08/28/17. Reviewed: Reviewed by Me Departure Communication (Admissions) Time/Spoke to Admitting Phy: 04:[address] Ribeiro agrees to take care of the patient. Impression Impression: Primary Impression: Bronchitis Additional Impression: Hypoglycemia Disposition: ADMITTED INPATIENT Condition: Stable Admissions Decision to Admit Reason: Admit from ER (General) Decision to Admit/Date: Aug 30, 2017 Time/Decision to Admit Time: 04:10 Departure-Patient Inst. Referrals: RANDI RIBEIRO DO (PCP/Family) Primary Care Physician Copy Copies To 1: RANDI RIBEIRO TITUS J Aug 30, 2017 01:51
[2017-08-30 01:52] LABS: BASOPHILS % (AUTO) 0 % (0-10); EOSINOPHILS # (AUTO) 0.2 10^3/uL (0.0-0.3); EOSINOPHILS % (AUTO) 3 % (0-10); HEMATOCRIT 34 % (35-52); HEMOGLOBIN 10.4 G/DL (11.5-16.0); LYMPHOCYTES # (AUTO) 2.3 X 10^3 (1.0-4.0); LYMPHOCYTES % (AUTO) 27 % (12-44); MEAN CORPUSCULAR HEMOGLOBIN 27 PG (25-34); MEAN CORPUSCULAR HGB CONC 31 G/DL (32-36); MEAN CORPUSCULAR VOLUME 86 FL (80-99); MONOCYTES # (AUTO) 1.1 X 10^3 (0.0-1.0); MONOCYTES % (AUTO) 12 % (0-12); NEUTROPHILS # (AUTO) 4.9 X 10^3 (1.8-7.8); NEUTROPHILS % (AUTO) 58 % (42-75); PLATELET COUNT 353 10^3/uL (130-400); RED BLOOD COUNT 3.92 10^6/uL (4.35-5.85); RED CELL DISTRIBUTION WIDTH 15.9 % (10.0-14.5); WHITE BLOOD COUNT 8.5 10^3/uL (4.3-11.0)
[2017-08-30 01:59] LABS: PROTHROMBIN TIME PATIENT 13.4 SEC (12.2-14.7)
[2017-08-30 02:11] LABS: ALANINE AMINOTRANSFERASE 9 U/L (0-55); ALBUMIN 3.2 GM/DL (3.2-4.5); ALKALINE PHOSPHATASE 123 U/L (40-136); BILIRUBIN,TOTAL 0.2 MG/DL (0.1-1.0); BUN/CREATININE RATIO 28; CALCIUM 8.7 MG/DL (8.5-10.1); CARBON DIOXIDE 28 MMOL/L (21-32); CHLORIDE 102 MMOL/L (98-107); GFR ESTIMATED > 60; GLUCOSE 237 MG/DL (70-105); POTASSIUM 3.6 MMOL/L (3.6-5.0); SODIUM 138 MMOL/L (135-145); TOTAL PROTEIN 6.9 GM/DL (6.4-8.2)
[2017-08-30] MEDS ORDERED: AZIT250T12 (05:04)
[2017-08-30] MEDS ORDERED: INSU100I29 SC (05:04)
[2017-08-30 05:30] VITALS: BP 103/56
[2017-08-30] MEDS ORDERED: ONDANSETRON 4 MG/2 ML (SDV) Z0FRAN IV PRN (06:30)
[2017-08-30] MEDS ORDERED: ACETAMINOPHEN 500 MG TAB (TYLENOL) PO PRN (06:30)
[2017-08-30 07:12] VITALS: BP 103/56
[2017-08-30] MEDS ORDERED: RT-ALBUTEROL/IPRATROPIUM 3 ML (DUONEB) VIAL INH PRN (07:30)
--- NOTE | 2017-08-30 07:37 | Diagnostic Imaging Report ---
EXAMINATION: CHEST (PA AND LATERAL) CLINICAL INDICATION: 41-year-old female, respiratory distress. COMPARISON: 08/28/2017. FINDINGS: There is a stent overlying the mid chest at the expected location of the esophagus and proximal stomach. Heart size and mediastinal contours are unchanged. There is no identified pneumothorax. There is no pleural effusion. There is subtle reticulonodular opacities in the left midlung which are not seen on the comparison exam. No additional interval focal consolidation is appreciated radiographically. IMPRESSION: 1. Subtle reticulonodular opacities in the left midlung which are not seen previously and potentially could relate to early infiltrate. 2. Redemonstrated stent material. Dictated by: Dictated on workstation # [id number]
--- NOTE | 2017-08-30 08:04 | History & Physicial ---
History of Present Illness History of Present Illness Reason for visit/HPI Patient resident of a senior care. Patient had respiratory difficulty. Patient has been on Zithromax. Patient's blood sugar 25 and 35. Patient chest x-ray shows early pneumonia. Patient sounds congested. Patient previously had a trach. Patient and known diabetic. Date of Admission Aug 30, 2017 at 04:10 Time Seen by Provider: 08:00 I consulted on this patient on 08/30/17 08:00 Attending Physician Israel Ribeiro DO Admitting Physician Israel Ribeiro DO Consult Allergies and Home Medications Allergies Coded Allergies: Sulfa (Sulfonamide Antibiotics) (Verified Allergy, Mild, Rash, 07/12/16) Home Medications Acetaminophen 500 Mg Tablet, 500 MG PO Q6H PRN for MILD PAIN/FEVER, (Reported) Alprazolam 0.25 Mg Tablet, 0.25 MG PEG BID PRN for ANXIETY, (Reported) Aspirin 81 Mg Tablet., 81 MG PEG DAILY, (Reported) Carvedilol 6.25 Mg Tablet, 6.25 MG PEG BID, (Reported) HOLD FOR SYSTOLIC BP <100 OR PULSE <60 Citalopram Hydrobromide 10 Mg/5 Ml Solution, 20 ML PEG DAILY, (Reported) Docusate Sodium 100 Mg Tablet, 100 MG PEG BID, (Reported) Glucagon,Human Recombinant 1 Mg/Kit Soln, 1 MG IM UD PRN for HYPOGLYCEMIA, ( Reported) Guaifenesin/Dextromethorphan 237 Ml Liquid, 10 ML PO Q4H PRN for COUGH, ( Reported) Guaifenesin/Dextromethorphan 1 Each Tab.er.12h, 1 TAB PEG BID, (Reported) Insulin Regular, Human 1,000 Units/10 Ml Soln, SQ QID, (Reported) 60-200 =0 UNITS 201-250=3 UNITS 251-300=5 UNITS 301-350=7 UNITS 351-400=9 UNITS CALL MD IF OVER 400 Lovastatin 10 Mg Tablet, 10 MG PEG HS, (Reported) Pantoprazole Sodium 40 Mg Granpkt., 40 MG PEG DAILY, (Reported) Polyethylene Glycol 3350 119 Gm Powder, 17 GM PEG DAILY PRN for CONSTIPATION- 1ST LINE, (Reported) Patient Home Medication List Home Medication List Reviewed: No Past Mppeinb-Tcmjmx-Cbgpgb Hx Patient Social History Employed/Student: unemployed Alcohol Use: Denies Use Recreational Drug Use: No Drug of Choice: polydrug abuse, meth Smoking Status: Current Everyday Smoker Type Used: Cigarettes 2nd Hand Smoke Exposure: No Physical Abuse Screen: No Sexual Abuse: No Recent Foreign Travel: No Contact w/other who traveled: No Recent Hopitalizations: Yes Recent Infectious Disease Expo: No Immunizations Up To Date Tetanus Booster (TDap): Unknown Date of Pneumonia Vaccine: Aug 06, 2016 Date of Influenza Vaccine: Jun 24, 2016 Seasonal Allergies Seasonal Allergies: No Surgeries Yes (ovarian cyst removed with ovary, L hip fx, peg tube) Abdominal, Tracheostomy Respiratory Yes (hx of collapsed lung ) Pneumonia Cardiovascular Yes High Cholesterol, Hypertension Neurological Yes Seizure Disorder Reproductive System : No Hx Reproductive Disorders: No Genitourinary Yes (Yeast in urine, UTI, inct) Gastrointestinal Yes (peg tube) Gastroesophageal Reflux, Gastrointestinal Bleed, Esophageal Varices Musculoskeletal Yes (Lt hip fx) Fractures Endocrine History of Endocrine Disorders: Yes Endocrine Disorders: Diabetes, Insulin dep HEENT History of HEENT Disorders: No Hearing Impairment: Denies Cancer No Psychosocial History of Psychiatric Problem: Yes Behavioral Health Disorders: Anxiety, Suicide Attempts, Depression Integumentary History of Skin or Integumenta: Yes (red heels, coccyx) Blood Transfusions History of Blood Disorders: No Adverse Reaction to a Blood Tr: No Family Medical History Significant Family History: No Pertinent Family Hx Family Hx: Hypertension 19 FATHER Constitutional: weakness EENTM: no symptoms reported Respiratory: short of breath, other (Congestion) Cardiovascular: no symptoms reported Gastrointestinal: no symptoms reported Genitourinary: no symptoms reported Physical Exam Vital Signs Vital Signs - First Documented 08/30/17 08/30/17 08/30/17 01:26 01:40 07:12 Temp 96.7 Pulse 84 Resp 18 B/P (MAP) 127/91 (103) Pulse Ox 93 O2 Delivery Room Air O2 Flow Rate 2.00 FiO2 2 Capillary Refill : Less Than 3 Seconds General Appearance: No Apparent Distress, Thin Eyes: Bilateral Eye Normal Inspection HEENT: Normal ENT Inspection Neck: Normal Inspection Respiratory: No Accessory Muscle Use, No Respiratory Distress, Crackles, Rhonci Cardiovascular: Regular Rate, Rhythm, No Murmur Gastrointestinal: Non Tender, Soft Assessment/Plan Assessment and Plan Hypoglycemia. Diabetes. Pneumonia. Respiratory difficulty Problems: Admission Diagnosis Admission Status: Observation Clinical Quality Measures DVT/VTE Risk/Contraindication: Risk Factor Score Per Nursin RFS Level Per Nursing on Admit: 4+=Very High ISRAEL RIBEIRO DO Aug 30, 2017 08:04
[2017-08-30 08:30] VITALS: BP 114/58
[2017-08-30] MEDS: ENOXAPARIN 40 MG/0.4 ML (LOVENOX) SYR SC SCH (08:49)
[2017-08-30] MEDS: AZITHROMYCIN 250 MG TAB (ZITHROMAX) PO SCH (08:49)
[2017-08-30] MEDS: cefTRIAXone INJECTION 1,000 MG in NS (IVPB) 100 ML IV SCH (08:49)
[2017-08-30] MEDS ORDERED: AZIT250T12 PO (08:50)
[2017-08-30] MEDS ORDERED: CITA20TA7 PO (08:50)
[2017-08-30] MEDS ORDERED: CARV3.122 PO (08:50)
[2017-08-30] MEDS ORDERED: ALBU2.5V4 NEB (08:50)
[2017-08-30] MEDS ORDERED: GUAI5SYR PO (08:50)
[2017-08-30] MEDS ORDERED: PANT40TA3 PO (08:50)
[2017-08-30] MEDS: RT-ALBUTEROL/IPRATROPIUM 3 ML (DUONEB) VIAL INH SCH ×4 (11:48→21:50)
[2017-08-30] MEDS: inSUlin (REGULAR) HUMAN 1 UNIT/0.01 ML (CHARGE PER UNIT) SC SCH ×3 (12:01→21:09)
[2017-08-30 12:29] VITALS: BP 132/65
[2017-08-30] MEDS: LACTATED RINGERS 1,000 ML IV SCH ×2 (13:26→16:38)
[2017-08-30 16:00] VITALS: BP 130/82
[2017-08-30 20:00] VITALS: BP 129/59
[2017-08-30] MEDS: IBUPROFEN TABLET 200 MG TAB PO PRN (21:08)
[2017-08-31] MEDS: LACTATED RINGERS 1,000 ML IV SCH ×3 (01:09→08:53)
[2017-08-31 01:21] VITALS: BP 152/76
[2017-08-31] MEDS: RT-ALBUTEROL/IPRATROPIUM 3 ML (DUONEB) VIAL INH SCH ×6 (02:00→21:38)
[2017-08-31 03:39] VITALS: BP 142/68
[2017-08-31] MEDS: IBUPROFEN TABLET 200 MG TAB PO PRN ×3 (03:51→18:11)
[2017-08-31 04:19] LABS: BASOPHILS % (AUTO) 0 % (0-10); EOSINOPHILS # (AUTO) 0.3 10^3/uL (0.0-0.3); EOSINOPHILS % (AUTO) 3 % (0-10); HEMATOCRIT 32 % (35-52); HEMOGLOBIN 9.8 G/DL (11.5-16.0); LYMPHOCYTES # (AUTO) 2.1 X 10^3 (1.0-4.0); LYMPHOCYTES % (AUTO) 27 % (12-44); MEAN CORPUSCULAR HEMOGLOBIN 26 PG (25-34); MEAN CORPUSCULAR HGB CONC 31 G/DL (32-36); MEAN CORPUSCULAR VOLUME 86 FL (80-99); MEAN PLATELET VOLUME 10.1 FL (7.4-10.4); MONOCYTES # (AUTO) 0.9 X 10^3 (0.0-1.0); MONOCYTES % (AUTO) 11 % (0-12); NEUTROPHILS # (AUTO) 4.6 X 10^3 (1.8-7.8); NEUTROPHILS % (AUTO) 58 % (42-75); PLATELET COUNT 300 10^3/uL (130-400); RED BLOOD COUNT 3.72 10^6/uL (4.35-5.85); RED CELL DISTRIBUTION WIDTH 15.6 % (10.0-14.5); WHITE BLOOD COUNT 7.9 10^3/uL (4.3-11.0)
[2017-08-31 04:41] LABS: ALANINE AMINOTRANSFERASE 9 U/L (0-55); ALBUMIN 2.9 GM/DL (3.2-4.5); ALKALINE PHOSPHATASE 109 U/L (40-136); BILIRUBIN,TOTAL 0.1 MG/DL (0.1-1.0); BUN/CREATININE RATIO 22; CALCIUM 8.6 MG/DL (8.5-10.1); CARBON DIOXIDE 28 MMOL/L (21-32); CHLORIDE 102 MMOL/L (98-107); CREATININE SERUM 0.55 MG/DL (0.60-1.30); GFR ESTIMATED > 60; GLUCOSE 179 MG/DL (70-105); POTASSIUM 4.4 MMOL/L (3.6-5.0); SODIUM 137 MMOL/L (135-145); TOTAL PROTEIN 6.4 GM/DL (6.4-8.2)
[2017-08-31] MEDS: inSUlin (REGULAR) HUMAN 1 UNIT/0.01 ML (CHARGE PER UNIT) SC SCH ×4 (06:33→22:03)
[2017-08-31 08:00] VITALS: BP 114/66
[2017-08-31] MEDS: ENOXAPARIN 40 MG/0.4 ML (LOVENOX) SYR SC SCH (08:54)
[2017-08-31] MEDS: cefTRIAXone INJECTION 1,000 MG in NS (IVPB) 100 ML IV SCH (08:54)
[2017-08-31] MEDS: AZITHROMYCIN 250 MG TAB (ZITHROMAX) PO SCH (08:54)
--- NOTE | 2017-08-31 09:38 | Diagnostic Imaging Report ---
INDICATION: Shortness of breath, wheezing, and cough. Comparison made with prior examination from 08/30/2017. FINDINGS: Heart size is normal. There is some minimal venous congestion. There are patchy bilateral perihilar infiltrates. There is no pleural effusion or pneumothorax. There is a stent graft in the thoracic and upper abdominal aorta. IMPRESSION: Patchy bilateral perihilar infiltrates with some questionable mild central pulmonary venous congestion. Dictated by: Dictated on workstation # [id number]
[2017-08-31 12:00] VITALS: BP 148/74
[2017-08-31] MEDS ORDERED: NON-FORMULARY MEDICATION 1 EA EA (Polyethylene Glycol 3350 (Miralax) 17 GM) PO PRN (13:00)
[2017-08-31] MEDS ORDERED: ACETAMINOPHEN 500 MG TAB (TYLENOL) PO PRN (13:00)
[2017-08-31] MEDS ORDERED: RT-ALBUTEROL SULF 2.5 MG/3 ML PRE-MIX VIAL IH SCH (13:00)
[2017-08-31] MEDS ORDERED: FUROSEMIDE 40 MG/4 ML INJ (LASIX) IVP NR (13:00)
--- NOTE | 2017-08-31 13:00 | Progress Note-Hospitalist ---
Subjective HPI/CC On Admission Date Seen by Provider: Aug 31, 2017 Time Seen by Provider: 11:45 Subjective/Events-last exam Patient complains of being more short of breath. Hasn't had her medications restarted yet. Chest x-ray shows increased bilateral infiltrates possible fluid overload although her BNP was normal when I checked it today. She is eating well blood sugars are running in the 200s. Review of Systems Pulmonary: Dyspnea Objective Exam Vital Signs Vital Signs Date Time Temp Pulse Resp B/P (MAP) Pulse Ox O2 Delivery O2 Flow Rate FiO2 08/30/17 01:26 96.7 84 18 127/91 (103) 93 Room Air 08/30/17 01:40 2.00 08/30/17 07:12 2 Capillary Refill : Less Than 3 SecondsLess Than 3 Seconds General Appearance: Chronically ill Neck: Supple Respiratory: Crackles, Rales, Rhonci Cardiovascular: Regular Rate, Rhythm, No Gallop Gastrointestinal: Normal Bowel Sounds, Non Tender, Soft Extremity: Normal Inspection, No Calf Tenderness, No Pedal Edema Neurologic/Psychiatric: Alert, Oriented x3, No Motor/Sensory Deficits Results/Procedures Lab Laboratory Tests 08/31/17 03:47 Assessment/Plan Assessment and Plan Assess & Plan/Chief Complaint 1. Pneumonia- on Rocephin and Zithromax 2. COPD 3. Possible fluid overload we'll give Lasix once and Hep-Lock IV fluids 4. Anemia 5. Tobaccoism non-curtailed 6. Type II diabetes out of control secondary to holding her insulin will restart cautiously 7. History of anxiety and depression restarted on her medications Time spent with patient (mins): 15 ROSETTE BAH MD Aug 31, 2017 13:00
[2017-08-31] MEDS ORDERED: POLYETHYLENE GLYCOL 17 GM (MIRALAX) PACK PO PRN (13:15)
--- OUTSIDE RECORDS SUMMARY | 2017-08-31 15:51 | XMS REPORT | Clinical Summary ---
Author Author [facility] Organization [facility] Address Unknown Phone Unavailable Care Team Providers Care Grapple Skidder Operator Name Role Phone Self, Referral PCP Unavailable Source Comments Some departments are not documenting in the electronic medical record. If you do not see the information that you expected, contact Release of Information in the Health Information Management department at [phone] for further assistance in locating additional records.[facility] Allergies Not on File Current Medications Not on file Active Problems Not on file Social History Tobacco Use Types Packs/Day Years Used Date Never Assessed Sex Assigned at Date Recorded Not on file Last Filed Vital Signs Not on file Plan of Treatment Health Maintenance Due Date Last Done Comments PHYSICAL (COMPREHENSIVE) 1980 EXAM PERTUSSIS VACCINE 1984 HIV SCREENING 1988 TETANUS VACCINE 1990 CERVICAL CANCER SCREENING 10/29/2003 BREAST CANCER SCREENING 2013 INFLUENZA VACCINE 03/24/2018 Results Not on filefrom Last 3 Months
[2017-08-31 16:00] VITALS: BP 120/61
[2017-08-31] MEDS ORDERED: NON-FORMULARY MEDICATION 1 EA EA (Docusate Sodium 100 MG) PO SCH (21:00)
[2017-08-31] MEDS ORDERED: NON-FORMULARY MEDICATION 1 EA EA (Lovastatin 10 MG) PO SCH (21:00)
[2017-08-31] MEDS ORDERED: NON-FORMULARY MEDICATION 1 EA EA (Insulin Detemir (Levemir Flextouch) 18 UNITS) SC SCH (21:00)
[2017-08-31 21:59] VITALS: BP 137/71
[2017-08-31] MEDS: DOCUSATE SODIUM 100 MG (COLACE) CAP PO SCH (22:01)
[2017-08-31] MEDS: ALPRAZolam 0.25 MG (XANAX) TAB PO SCH (22:01)
[2017-08-31] MEDS: CARVEDILOL 3.125 MG (COREG) TABLET PO SCH (22:02)
[2017-08-31] MEDS: SIMvastatin 10 MG (ZOCOR) TAB PO SCH (22:02)
[2017-08-31] MEDS: inSUlin DETERMIR 1 UNIT/0.01 ML (LEVEMIR) CHARGE PER UNIT SQ SCH (22:04)
[2017-09-01] VITALS: BP 128/75
[2017-09-01] MEDS: RT-ALBUTEROL/IPRATROPIUM 3 ML (DUONEB) VIAL INH SCH ×6 (01:30→22:05)
--- OUTSIDE RECORDS SUMMARY | 2017-09-01 03:33 | XMS REPORT | Clinical Summary ---
Author Author [facility] Organization [facility] Address Unknown Phone Unavailable Care Team Providers Care Ski Binding Fitter And Repairer Name Role Phone Self, Referral PCP Unavailable Source Comments Some departments are not documenting in the electronic medical record. If you do not see the information that you expected, contact Release of Information in the Health Information Management department at [phone] for further assistance in locating additional records.[facility] Allergies Not on File Current Medications [...]
[2017-09-01 04:45] VITALS: BP 118/62
[2017-09-01] MEDS: IBUPROFEN TABLET 200 MG TAB PO PRN (05:22)
[2017-09-01 05:52] LABS: HEMOGLOBIN 10.4 G/DL (11.5-16.0); MEAN PLATELET VOLUME 10.5 FL (7.4-10.4); RED BLOOD COUNT 3.99 10^6/uL (4.35-5.85); RED CELL DISTRIBUTION WIDTH 15.3 % (10.0-14.5); WHITE BLOOD COUNT 6.6 10^3/uL (4.3-11.0)
[2017-09-01 06:21] LABS: ALANINE AMINOTRANSFERASE 12 U/L (0-55); ALBUMIN 3.2 GM/DL (3.2-4.5); ALKALINE PHOSPHATASE 113 U/L (40-136); BILIRUBIN,TOTAL 0.1 MG/DL (0.1-1.0); BUN/CREATININE RATIO 19; CALCIUM 9.3 MG/DL (8.5-10.1); CARBON DIOXIDE 30 MMOL/L (21-32); CHLORIDE 102 MMOL/L (98-107); CREATININE SERUM 0.54 MG/DL (0.60-1.30); GFR ESTIMATED > 60; GLUCOSE 108 MG/DL (70-105); POTASSIUM 3.9 MMOL/L (3.6-5.0); SODIUM 139 MMOL/L (135-145)
[2017-09-01] MEDS: inSUlin (REGULAR) HUMAN 1 UNIT/0.01 ML (CHARGE PER UNIT) SC SCH ×4 (06:33→21:35)
[2017-09-01] MEDS: PANTOPRAZOLE 40 MG (PROTONIX) TAB PO SCH (06:33)
[2017-09-01 08:25] VITALS: BP 132/76
[2017-09-01] MEDS: inSUlin DETERMIR 1 UNIT/0.01 ML (LEVEMIR) CHARGE PER UNIT SQ SCH ×2 (08:25→21:35)
[2017-09-01] MEDS: ENOXAPARIN 40 MG/0.4 ML (LOVENOX) SYR SC SCH (08:25)
[2017-09-01] MEDS: cefTRIAXone INJECTION 1,000 MG in NS (IVPB) 100 ML IV SCH (08:25)
[2017-09-01] MEDS: ASPIRIN E.C. 81 MG (ECOTRIN) TAB PO SCH (08:26)
[2017-09-01] MEDS: DOCUSATE SODIUM 100 MG (COLACE) CAP PO SCH ×2 (08:26→21:34)
[2017-09-01] MEDS: ALPRAZolam 0.25 MG (XANAX) TAB PO SCH ×2 (08:26→21:35)
[2017-09-01] MEDS: AZITHROMYCIN 250 MG TAB (ZITHROMAX) PO SCH (08:26)
[2017-09-01] MEDS: CARVEDILOL 3.125 MG (COREG) TABLET PO SCH ×2 (08:26→21:34)
[2017-09-01 12:00] VITALS: BP 123/80
--- NOTE | 2017-09-01 12:09 | Progress Note-Hospitalist ---
Subjective HPI/CC On Admission Date Seen by Provider: Sep 01, 2017 Time Seen by Provider: 11:00 Subjective/Events-last exam Patient complains of being exhausted and not having slept last night. She wants to be left alone.. She continues to have a coarse cough. Review of Systems Pulmonary: Cough Neurological: Weakness, Other (Fatigue) Objective Exam Vital Signs Vital Signs Date Time Temp Pulse Resp B/P (MAP) Pulse Ox O2 Delivery O2 Flow Rate FiO2 08/30/17 01:26 96.7 84 18 127/91 (103) 93 Room Air 08/30/17 01:40 2.00 08/30/17 07:12 2 Capillary Refill : Less Than 3 SecondsLess Than 3 Seconds General Appearance: Chronically ill HEENT: Other (Dentulous) Neck: Supple Respiratory: Rales, Rhonci, Wheezing Cardiovascular: Regular Rate, Rhythm, No Gallop, Other (Heart sounds obscured by rhonchi) Gastrointestinal: No Organomegaly, Non Tender, Soft Rectal: Deferred Neurologic/Psychiatric: Alert Results/Procedures Lab Laboratory Tests 09/01/17 04:51 Assessment/Plan Assessment and Plan Assess & Plan/Chief Complaint 1. Pneumonia- on Rocephin and Zithromax-sounds worse today will recheck a chest x-ray 2. COPD 3. Possible fluid overload we'll give Lasix daily now and Hep-Lock IV fluids 4. Anemia - 5. Tobaccoism non-curtailed 6. Type II diabetes out of control secondary to holding her insulin will restart cautiously-she was loaded again this morning so we'll decrease the twice a day dose 7. History of anxiety and depression restarted on her medications Time spent with patient (mins): 20 ROSETTE BAH MD Sep 01, 2017 12:09 pm
[2017-09-01] MEDS ORDERED: KCL 20 MEQ TAB (K-DUR) PO NR (12:15)
[2017-09-01] MEDS ORDERED: FUROSEMIDE 40 MG (LASIX) TAB PO NR (12:15)
--- NOTE | 2017-09-01 14:09 | Diagnostic Imaging Report ---
EXAM: CHEST PA/LAT (2 VIEW) INDICATION: Cough. Congestion. COMPARISON: Chest radiograph 08/31/2017. FINDINGS: Esophageal stent in stable position. Normal heart size and pulmonary vascularity. No focal pulmonary opacity, pleural effusion or pneumothorax. No acute osseous findings. IMPRESSION: No acute cardiopulmonary findings. Dictated by: Dictated on workstation # [id number]
[2017-09-01 16:00] VITALS: BP_SYST 133; BP_SYST 84; BP_DIAS 80; BP_DIAS 84
[2017-09-01 20:00] VITALS: BP 129/76
[2017-09-01] MEDS: SIMvastatin 10 MG (ZOCOR) TAB PO SCH (21:35)
[2017-09-02 00:07] VITALS: BP 120/60
[2017-09-02] MEDS: RT-ALBUTEROL/IPRATROPIUM 3 ML (DUONEB) VIAL INH SCH ×6 (02:00→22:21)
[2017-09-02 03:18] VITALS: BP 113/63
[2017-09-02 05:57] LABS: MEAN PLATELET VOLUME 9.9 FL (7.4-10.4); RED BLOOD COUNT 4.56 10^6/uL (4.35-5.85); RED CELL DISTRIBUTION WIDTH 15.5 % (10.0-14.5); WHITE BLOOD COUNT 6.5 10^3/uL (4.3-11.0)
[2017-09-02 06:27] LABS: ALANINE AMINOTRANSFERASE 12 U/L (0-55); ALBUMIN 3.2 GM/DL (3.2-4.5); ALKALINE PHOSPHATASE 111 U/L (40-136); BILIRUBIN,TOTAL 0.2 MG/DL (0.1-1.0); BUN/CREATININE RATIO 25; CALCIUM 8.9 MG/DL (8.5-10.1); CARBON DIOXIDE 30 MMOL/L (21-32); CHLORIDE 101 MMOL/L (98-107); CREATININE SERUM 0.51 MG/DL (0.60-1.30); GFR ESTIMATED > 60; GLUCOSE 71 MG/DL (70-105); POTASSIUM 4.3 MMOL/L (3.6-5.0); SODIUM 140 MMOL/L (135-145); TOTAL PROTEIN 7.1 GM/DL (6.4-8.2)
[2017-09-02] MEDS: inSUlin (REGULAR) HUMAN 1 UNIT/0.01 ML (CHARGE PER UNIT) SC SCH ×4 (06:33→21:22)
[2017-09-02] MEDS: PANTOPRAZOLE 40 MG (PROTONIX) TAB PO SCH (06:42)
--- NOTE | 2017-09-02 07:45 | Progress Note (SOAP) ---
Subjective Time Seen by Provider: 07:45 Subjective/Events-last exam patient complaining of being congested. Chest x-ray yesterday looked better. Patient is congested Objective Exam Vital Signs Date Time Temp Pulse Resp B/P (MAP) Pulse Ox O2 Delivery O2 Flow Rate FiO2 09/02/17 03:18 96.6 82 18 113/63 (80) 93 Nasal Cannula 1.00 09/02/17 00:07 98.1 83 20 120/60 (80) 93 Nasal Cannula 1.00 09/01/17 21:00 Nasal Cannula 1.00 09/01/17 20:00 96.7 96 20 129/76 (93) 93 Nasal Cannula 1.00 09/01/17 16:00 96.3 93 16 133/84 (100) 93 Nasal Cannula 1.00 09/01/17 14:59 Room Air 09/01/17 12:00 96.0 80 20 123/80 (94) 97 Nasal Cannula 1.00 09/01/17 08:57 Nasal Cannula 1.00 09/01/17 08:25 97.0 75 18 132/76 (94) 96 Nasal Cannula 1.00 I & O 09/02/17 07:00 Intake Total 1810 ml Output Total 4 ml Balance 1806 ml Capillary Refill : Less Than 3 SecondsLess Than 3 Seconds General Appearance: No Apparent Distress, Thin HEENT: Normal ENT Inspection Neck: Full Range of Motion Respiratory: Decreased Breath Sounds, Other (congestion) Cardiovascular: Regular Rate, Rhythm, No Murmur Gastrointestinal: non tender, soft Results Lab Laboratory Tests 09/01/17 10:44: Glucometer 283H 09/01/17 16:04: Glucometer 303H 09/01/17 20:48: Glucometer 213H 09/02/17 05:48: White Blood Count 6.5, Red Blood Count 4.56, Hemoglobin 12.0, Hematocrit 39, Mean Corpuscular Volume 84, Mean Corpuscular Hemoglobin 26, Mean Corpuscular Hemoglobin Concent 31L, Red Cell Distribution Width 15.5H, Platelet Count 183, Mean Platelet Volume 9.9, Sodium Level 140, Potassium Level 4.3, Chloride Level 101, Carbon Dioxide Level 30, Anion Gap 9, Blood Urea Nitrogen 13, Creatinine 0.51L, Estimat Glomerular Filtration Rate > 60, BUN/Creatinine Ratio 25, Glucose Level 71, Calcium Level 8.9, Total Bilirubin 0.2, Aspartate Amino Transf (AST/SGOT) 14, Alanine Aminotransferase (ALT/SGPT) 12, Alkaline Phosphatase 111, B-Type Natriuretic Peptide 12.4, Total Protein 7.1, Albumin 3.2 Microbiology 08/30/17 Blood Culture - Preliminary, Resulted No growth 08/30/17 Influenza Types A,B Antigen (ROMANA) - Final, Complete Assessment/Plan Assessment/Plan Assess & Plan/Chief Complaint pneumonia. COPD. Anemia. Clinically patient not improving Chest x-ray shows better Clinical Quality Measures Admission Status Admission Dx Hypoglycemia. Diabetes. Pneumonia. Respiratory difficulty DVT/VTE Risk/Contraindication: Risk Factor Score Per Nursin RFS Level Per Nursing on Admit: 4+=Very High RANDI RIBEIRO DO Sep 02, 2017 07:44
[2017-09-02 08:00] VITALS: BP 113/61
[2017-09-02] MEDS: ENOXAPARIN 40 MG/0.4 ML (LOVENOX) SYR SC SCH (08:22)
[2017-09-02] MEDS: cefTRIAXone INJECTION 1,000 MG in NS (IVPB) 100 ML IV SCH (08:22)
[2017-09-02] MEDS: DOCUSATE SODIUM 100 MG (COLACE) CAP PO SCH ×2 (08:22→21:23)
[2017-09-02] MEDS: ALPRAZolam 0.25 MG (XANAX) TAB PO SCH ×2 (08:22→21:23)
[2017-09-02] MEDS: CARVEDILOL 3.125 MG (COREG) TABLET PO SCH ×2 (08:22→21:23)
[2017-09-02] MEDS: ASPIRIN E.C. 81 MG (ECOTRIN) TAB PO SCH (08:22)
[2017-09-02] MEDS: AZITHROMYCIN 250 MG TAB (ZITHROMAX) PO SCH (08:22)
[2017-09-02] MEDS: inSUlin DETERMIR 1 UNIT/0.01 ML (LEVEMIR) CHARGE PER UNIT SQ SCH ×2 (08:23→21:22)
[2017-09-02 12:00] VITALS: BP 96/59
--- NOTE | 2017-09-02 15:05 | Diagnostic Imaging Report ---
INDICATION: Chest pain. COMPARISON: 09/01/2017. FINDINGS: Frontal and lateral views of the chest demonstrate esophageal stents in place. The heart is minimally enlarged but stable. The lungs are clear. There is no pneumothorax. The osseous structures are age-appropriate. IMPRESSION: Negative stable chest. Dictated by: Dictated on workstation # [id number]
[2017-09-02 15:43] VITALS: BP 96/59
[2017-09-02 16:12] VITALS: BP 103/61
[2017-09-02] MEDS: SIMvastatin 10 MG (ZOCOR) TAB PO SCH (21:23)
[2017-09-02] MEDS: IBUPROFEN TABLET 200 MG TAB PO PRN (21:28)
[2017-09-03] VITALS: BP 120/66
[2017-09-03] MEDS: RT-ALBUTEROL/IPRATROPIUM 3 ML (DUONEB) VIAL INH SCH ×4 (04:23→15:38)
[2017-09-03] MEDS: inSUlin (REGULAR) HUMAN 1 UNIT/0.01 ML (CHARGE PER UNIT) SC SCH ×3 (05:13→16:51)
[2017-09-03] MEDS: PANTOPRAZOLE 40 MG (PROTONIX) TAB PO SCH (06:05)
[2017-09-03 06:30] LABS: HEMOGLOBIN 10.8 G/DL (11.5-16.0); MEAN PLATELET VOLUME 9.8 FL (7.4-10.4); RED BLOOD COUNT 4.08 10^6/uL (4.35-5.85); RED CELL DISTRIBUTION WIDTH 15.4 % (10.0-14.5); WHITE BLOOD COUNT 7.3 10^3/uL (4.3-11.0)
[2017-09-03 06:44] LABS: BUN/CREATININE RATIO 37; CALCIUM 9.3 MG/DL (8.5-10.1); CARBON DIOXIDE 31 MMOL/L (21-32); CHLORIDE 101 MMOL/L (98-107); CREATININE SERUM 0.54 MG/DL (0.60-1.30); GFR ESTIMATED > 60; GLUCOSE 103 MG/DL (70-105); POTASSIUM 4.2 MMOL/L (3.6-5.0); SODIUM 138 MMOL/L (135-145)
[2017-09-03 08:00] VITALS: BP 123/59
[2017-09-03] MEDS: DOCUSATE SODIUM 100 MG (COLACE) CAP PO SCH (08:14)
[2017-09-03] MEDS: CARVEDILOL 3.125 MG (COREG) TABLET PO SCH (08:14)
[2017-09-03] MEDS: ALPRAZolam 0.25 MG (XANAX) TAB PO SCH (08:14)
[2017-09-03] MEDS: ENOXAPARIN 40 MG/0.4 ML (LOVENOX) SYR SC SCH (08:14)
[2017-09-03] MEDS: ASPIRIN E.C. 81 MG (ECOTRIN) TAB PO SCH (08:14)
[2017-09-03] MEDS: cefTRIAXone INJECTION 1,000 MG in NS (IVPB) 100 ML IV SCH (08:15)
[2017-09-03] MEDS: inSUlin DETERMIR 1 UNIT/0.01 ML (LEVEMIR) CHARGE PER UNIT SQ SCH (08:15)
--- NOTE | 2017-09-03 09:40 | Discharge Summary ---
Diagnosis/Chief Complaint Date of Admission Aug 30, 2017 at 05:15 Date of Discharge Discharge Summary Discharge Physical Examination Allergies: Coded Allergies: Sulfa (Sulfonamide Antibiotics) (Verified Allergy, Mild, Rash, 07/12/16) Vitals & I&Os Vital Signs Date Time Temp Pulse Resp B/P (MAP) Pulse Ox O2 Delivery O2 Flow Rate FiO2 09/03/17 08:00 96.4 82 22 123/59 (80) 94 Room Air 09/02/17 21:00 1.00 09/02/17 15:43 28 Hospital Course Pending Labs Laboratory Tests 09/03/17 05:11: Glucometer 103 09/03/17 05:50: White Blood Count 7.3, Red Blood Count 4.08, Hemoglobin 10.8, Hematocrit 35, Mean Corpuscular Volume 85, Mean Corpuscular Hemoglobin 27, Mean Corpuscular Hemoglobin Concent 31, Red Cell Distribution Width 15.4, Platelet Count 342, Mean Platelet Volume 9.8, Sodium Level 138, Potassium Level 4.2, Chloride Level 101, Carbon Dioxide Level 31, Anion Gap 6, Blood Urea Nitrogen 20, Creatinine 0.54, Estimat Glomerular Filtration Rate > 60, BUN/Creatinine Ratio 37, Glucose Level 103, Calcium Level 9.3 Discharge Instructions to patient/family Please see electronic discharge instructions given to patient. Discharge Medications Reviewed and agree with Discharge Medication list on patient's Discharge Instruction sheet Clinical Quality Measures DVT/VTE Risk/Contraindication: Risk Factor Score Per Nursin RFS Level Per Nursing on Admit: 4+=Very High ANAMIKA JENNINGS MD Sep 03, 2017 09:40
[2017-09-03] MEDS ORDERED: CEFD300C3 PO (09:42)
[2017-09-03] MEDS ORDERED: ALBU90AE IH (09:42)
--- NOTE | 2017-09-03 09:43 | Discharge Inst-Skilled Nursing ---
Discharge Inst-Skilled NF Patient Instructions Patient Problems: pneumonia Consult/Follow Up/Orders Skilled NF Admit to: [facility], [place] and Rehab Certification (SNF) I certify that SNF services are required to be given on an inpatient basis because of the above named patient's need for jail care on a continuing basis for the conditions(s) for which he/she was receiving inpatient hospital services prior to his/her transfer to the SNF. Group Home Facility Order: Nursing Services, Physical Therapy-Evaluate & Treat, Speech Language-Evaluate & Treat Discharge Diet: Regular Diet Daily Activity as Tolerated: Yes New & Resume Previous Orders Anamika Nolasco Sep 03, 2017 09:42 ANAMIKA NOLASCO MD Sep 03, 2017 09:43
--- NOTE | 2017-09-03 09:58 | Diagnostic Imaging Report ---
EXAMINATION: PA and lateral chest obtained at 7:46AM. INDICATION: Cough The heart size is within normal limits and stable compared to 09/02/17. The aortic stent graft seen on the prior study is again evident and unchanged in position. The lungs are generally clear. In the interval since the prior study however minimal fluid has developed in each lung base. The mediastinum is not widened. The osseous structures are intact. IMPRESSION: A small amount of fluid has developed in each lung base. The overall appearance of the chest is otherwise stable. Dictated by: Dictated on workstation # [id number]
== END 2017-09-03 17:35 ==
LOC: EDUNIT# 01:23 → ER 01:24 → 4TH 04:10 → UNDOADMOB 04:10 → 4TH 05:15
PROVIDERS: ADMIT Family Medicine; ATTEND Family Medicine
DX: J18.9 Pneumonia, unspecified organism (principal); J44.9 Chronic obstructive pulmonary disease, unspecified; D64.9 Anemia, unspecified; E11.649 Type 2 diabetes mellitus with hypoglycemia without coma; Z88.2 Allergy status to sulfonamides; F41.9 Anxiety disorder, unspecified; F32.9 Major depressive disorder, single episode, unspecified; Z79.4 Long term (current) use of insulin; E78.00 Pure hypercholesterolemia, unspecified; I10 Essential (primary) hypertension; F17.210 Nicotine dependence, cigarettes, uncomplicated
CPT/HCPCS: 36415; 71046; 80048; 80053; 82962; 83605; 83880; 85025; 85027; 85610; 85730; 87040; 87804; 93306; 94640; 94664; 94760; 96361; 96365

== ENCOUNTER 2017-09-23 10:32 | Emergency (ER) | payer MEDICAID ==
[~2017-09-23] VITALS: Ht 157.5 cm; Wt 54.4 kg
[~2017-09-23 10:32] MED LIST changes: +ALBU2.5V4 NEB; +ALBU90AE IH; +AZIT250T12; +AZIT250T12 PO; +CARV3.122 PO; +CEFD300C3 PO; +CITA20TA7 PO; +GUAI5SYR PO; +INSU100I29 SC; +PANT40TA3 PO
--- NOTE | 2017-09-23 10:56 | ED GI ---
General Chief Complaint: Catheter/Drain/Tube Problems Stated Complaint: REPLACE G TUBE Nursing Triage Note: PT TO ROOM 6 PER W/C PT FROM [place], PT HAS LOST G-TUBE THIS AM. Sepsis Screen: No Definite Risk Source of Information: Patient Exam Limitations: No Limitations History of Present Illness Date Seen by Provider: Sep 23, 2017 Time Seen by Provider: 10:55 Initial Comments To ER from [facility] with reports of having had G-tube fall out last night Timing/Duration: 12-24 Hours Severity/Quality: Moderate Radiation: No Radiation Activities at Onset: None Allergies and Home Medications Allergies Coded Allergies: Sulfa (Sulfonamide Antibiotics) (Verified Allergy, Mild, Rash, 07/12/16) Home Medications Acetaminophen 500 Mg Tablet, 500 MG PO Q6H PRN for MILD PAIN/FEVER, (Reported) Albuterol Sulfate 2.5 Mg/3 Ml Vial.neb, 2.5 MG NEB TID, (Reported) START DATE 08-28-17 END DATE 09-07-17 Albuterol Sulfate 90 Mcg Aer.pow.ba, 2 PUFF IH TID Prescribed by: ANAMIKA JENNINGS on 09/03/17 0942 Alprazolam 0.25 Mg Tablet, 0.25 MG PO BID, (Reported) Aspirin 81 Mg Tablet.dr, 81 MG PO DAILY, (Reported) Carvedilol 3.125 Mg Tablet, 3.125 MG PO BID, (Reported) HOLD FOR SBP <100 OR PULSE <60 Cefdinir 300 Mg Capsule, 300 MG PO BID Prescribed by: ANAMIKA JENNINGS on 09/03/17941 Citalopram Hydrobromide 20 Mg Tablet, 20 MG PO DAILY, (Reported) Docusate Sodium 100 Mg Tablet, 100 MG PO BID, (Reported) Glucagon,Human Recombinant 1 Mg/Kit Soln, 1 MG IM UD PRN for HYPOGLYCEMIA, ( Reported) Guaifenesin/Dextromethorphan 1 Each Tab.er.12h, 1 TAB PO BID, (Reported) Guaifenesin/Dextromethorphan 5 Ml Syrup, 10 ML PO Q4H PRN for COUGH, (Reported) Insulin Detemir 100 Unit/1 Ml Insuln.pen, 18 UNITS SC BID, (Reported) Insulin Regular, Human 1,000 Units/10 Ml Soln, SQ QID, (Reported) 60-200 =0 UNITS 201-250=3 UNITS 251-300=5 UNITS 301-350=7 UNITS 351-400=9 UNITS CALL MD IF OVER 400 Lovastatin 10 Mg Tablet, 10 MG PO HS, (Reported) Pantoprazole Sodium 40 Mg Tablet.dr, 40 MG PO DAILY, (Reported) Polyethylene Glycol 3350 119 Gm Powder, 17 GM PO DAILY PRN for CONSTIPATION-2ND LINE, (Reported) Patient Home Medication List Home Medication List Reviewed: Yes Review of Systems Constitutional: see HPI EENTM: No Symptoms Reported Respiratory: No Symptoms Reported Cardiovascular: No Symptoms Reported Gastrointestinal: See HPI Genitourinary: No Symptoms Reported Musculoskeletal: no symptoms reported Skin: no symptoms reported Psychiatric/Neurological: No Symptoms Reported Endocrine: No Symptoms Reported Hematologic/Lymphatic: No Symptoms Reported Past [employer] Hx Patient Social History Alcohol Use: Denies Use Recreational Drug Use: No (HX) Drug of Choice: polydrug abuse, meth Smoking Status: Current Everyday Smoker Type Used: Cigarettes 2nd Hand Smoke Exposure: No Recent Foreign Travel: No Contact w/Someone Who Travel: No Recent Infectious Disease Expo: No Recent Hopitalizations: No Physical Abuse: No Sexual Abuse: No Immunizations Up To Date Tetanus Booster (TDap): Unknown Date of Pneumonia Vaccine: Aug 06, 2016 Date of Influenza Vaccine: Jun 24, 2016 Seasonal Allergies Seasonal Allergies: No Surgeries History of Surgeries: Yes (ovarian cyst removed with ovary, L hip fx, peg tube) Surgeries: Abdominal, Tracheostomy Respiratory History of Respiratory Disorde: Yes (hx of collapsed lung ) Respiratory Disorders: Pneumonia Cardiovascular History of Cardiac Disorders: Yes Cardiac Disorders: High Cholesterol, Hypertension Neurological History of Neurological Disord: Yes Neurological Disorders: Seizure Disorder Reproductive System Hx Reproductive Disorders: No Genitourinary History of Genitourinary Disor: Yes (Yeast in urine, UTI, inct) Gastrointestinal History of Gastrointestinal Di: Yes (peg tube) Gastrointestinal Disorders: Gastroesophageal Reflux, Gastrointestinal Bleed, Esophageal Varices Musculoskeletal History of Musculoskeletal Dis: Yes (Lt hip fx) Musculoskeletal Disorders: Fractures Endocrine History of Endocrine Disorders: Yes Endocrine Disorders: Diabetes, Insulin dep HEENT History of HEENT Disorders: No Hearing Impairment: Denies Cancer History of Cancer: No Psychosocial History of Psychiatric Problem: Yes Behavioral Health Disorders: Anxiety, Suicide Attempts, Depression Suicide Risk Score: 0 Integumentary History of Skin or Integumenta: Yes (red heels, coccyx) Blood Transfusions History of Blood Disorders: No Adverse Reaction to a Blood Tr: No Family Medical History Significant Family History: No Pertinent Family Hx Family Medial History: Hypertension 19 FATHER Physical Exam Vital Signs VS - Last 72 Hours, by Label 09/23/17 09/23/17 10:40 11:55 Temp 97.9 97.9 Pulse 85 85 Resp 16 16 B/P (MAP) 124/78 (93) 124/78 (93) Pulse Ox 96 96 Capillary Refill : Less Than 3 Seconds General Appearance: WD/WN, no apparent distress HEENT: PERRL/EOMI, normal ENT inspection Neck: non-tender, full range of motion Respiratory: no respiratory distress, no accessory muscle use Cardiovascular: regular rate, rhythm Gastrointestinal: normal bowel sounds, soft, tenderness (there was tenderness around the stoma which is narrowed and will require dilation prior to reinserting PEG tube.) Extremities: normal range of motion, non-tender Neurologic/Psychiatric: alert, normal mood/affect, oriented x 3 Skin: normal color, warm/dry Progress/Results/Core Measures Results/Orders My Orders Orders - RADHA REID APRN Lidocaine 2% Viscous 15 Ml (Xylocaine Vi (09/23/17 11:00) Peg Tube Check (09/23/17 10:56) Fentanyl Injection (Sublimaze Injection (09/23/17 11:00) Diatrizoate Meglum/Sodium 37% (Gastrogra (09/23/17 11:30) Im/Sub-Q Injection Non-Ab Ed (09/23/17 ) Vital Signs/I&O Vital Sign - Last 12Hours 09/23/17 09/23/17 10:40 11:55 Temp 97.9 97.9 Pulse 85 85 Resp 16 16 B/P (MAP) 124/78 (93) 124/78 (93) Pulse Ox 96 96 Blood Pressure Mean: 93 Departure Communication (Admissions) Progress Notes 1114-Stoma was dilated back open using dilators from surgery, a 22french PEG tube was replaced. Formerly had a 24fr in place but this came out last night. Will do PEG tube check x-ray and if OK then DC to home. Impression Impression: Primary Impression: Encounter for PEG tube Replacement Disposition: HOME, SELF-CARE Condition: Stable Departure-Patient Inst. Decision time for Depature: 11:15 Referrals: RANDI RIBEIRO DO (PCP/Family) Primary Care Physician Patient Instructions: How to Care for Your PEG Tube Add. Discharge Instructions: All discharge instructions reviewed with patient and/or family. Voiced understanding. RADHA REID PROCEDURES ANALYST Sep 23, 2017 10:56
[2017-09-23] MEDS ORDERED: LIDOCAINE 2% VISCOUS 15 ML UDC PO ONE (11:00)
[2017-09-23] MEDS ORDERED: fentaNYL INJECTION 100 MCG/2 ML AMP IM ONE (11:00)
[2017-09-23] MEDS ORDERED: DIATRIZOATE MEGLUM/SODIUM 37% 120 ML (GASTROGRAFIN) NG ONE (11:30)
--- NOTE | 2017-09-23 11:49 | Diagnostic Imaging Report ---
INDICATION: Evaluate tube placement. FINDINGS: 30 cc of Gastrografin was injected into the patient's PEG tube. Contrast all appears to be contained within the stomach. There is no extravasation of contrast. IMPRESSION: PEG tube appears to be in satisfactory position. Dictated by: Dictated on workstation # [id number]
[2017-09-23 11:55] VITALS: BP 124/78
== END 2017-09-23 11:55 | disposition home or self-care (01) ==
LOC: EDUNIT# 10:32 → ER 10:33
DX: K94.29 Other complications of gastrostomy (principal); E78.00 Pure hypercholesterolemia, unspecified; I10 Essential (primary) hypertension; G40.909 Epilepsy, unspecified, not intractable, without status epilepticus; K21.9 Gastro-esophageal reflux disease without esophagitis; F15.90 Other stimulant use, unspecified, uncomplicated; E11.9 Type 2 diabetes mellitus without complications; F41.9 Anxiety disorder, unspecified; F32.9 Major depressive disorder, single episode, unspecified; Z91.5 Personal history of self-harm; Z87.81 Personal history of (healed) traumatic fracture; F17.210 Nicotine dependence, cigarettes, uncomplicated; Z90.89 Acquired absence of other organs; Z87.42 Personal history of other diseases of the female genital tract; Z87.01 Personal history of pneumonia (recurrent); Z79.82 Long term (current) use of aspirin; Z79.4 Long term (current) use of insulin; Z88.2 Allergy status to sulfonamides
CPT/HCPCS: 49465; 96372

== ENCOUNTER 2017-09-26 06:05 | Emergency (ER) | payer MEDICAID ==
[~2017-09-26] VITALS: Ht 157.5 cm; Wt 49.9 kg
--- NOTE | 2017-09-26 06:15 | ED General ---
General Stated Complaint: FEEDING TUBE OUT Source of Information: Patient Exam Limitations: No Limitations History of Present Illness Date Seen by Provider: Sep 26, 2017 Time Seen by Provider: 06:03 Initial Comments Here by EMS with report of feeding tube falling out. She states that she must of rolled over on it last night and accidentally pulled it out. She found her tube on the bed this morning. Denies other concerns. Timing/Duration: 1/2 Hour Severity: Mild Associated Systoms: No Nausea/Vomiting, No Shortness of Air, No Weakness Allergies and Home Medications Allergies Coded Allergies: Sulfa (Sulfonamide Antibiotics) (Verified Allergy, Mild, Rash, 07/12/16) Home Medications Acetaminophen 500 Mg Tablet, 500 MG PO Q6H PRN for MILD PAIN/FEVER, (Reported) Albuterol Sulfate 2.5 Mg/3 Ml Vial.neb, 2.5 MG NEB TID, (Reported) START DATE 08-28-17 END DATE 09-07-17 Albuterol Sulfate 90 Mcg Aer.pow.ba, 2 PUFF IH TID Prescribed by: ANAMIKA JENNINGS on 09/03/17 0942 Alprazolam 0.25 Mg Tablet, 0.25 MG PO BID, (Reported) Aspirin 81 Mg Tablet.dr, 81 MG PO DAILY, (Reported) Carvedilol 3.125 Mg Tablet, 3.125 MG PO BID, (Reported) HOLD FOR SBP <100 OR PULSE <60 Cefdinir 300 Mg Capsule, 300 MG PO BID Prescribed by: ANAMIKA JENNINGS on 09/03/17 0942 Citalopram Hydrobromide 20 Mg Tablet, 20 MG PO DAILY, (Reported) Docusate Sodium 100 Mg Tablet, 100 MG PO BID, (Reported) Glucagon,Human Recombinant 1 Mg/Kit Soln, 1 MG IM UD PRN for HYPOGLYCEMIA, ( Reported) Guaifenesin/Dextromethorphan 1 Each Tab.er.12h, 1 TAB PO BID, (Reported) Guaifenesin/Dextromethorphan 5 Ml Syrup, 10 ML PO Q4H PRN for COUGH, (Reported) Insulin Detemir 100 Unit/1 Ml Insuln.pen, 18 UNITS SC BID, (Reported) Insulin Regular, Human 1,000 Units/10 Ml Soln, SQ QID, (Reported) 60-200 =0 UNITS 201-250=3 UNITS 251-300=5 UNITS 301-350=7 UNITS 351-400=9 UNITS CALL MD IF OVER 400 Lovastatin 10 Mg Tablet, 10 MG PO HS, (Reported) Pantoprazole Sodium 40 Mg Tablet.dr, 40 MG PO DAILY, (Reported) Polyethylene Glycol 3350 119 Gm Powder, 17 GM PO DAILY PRN for CONSTIPATION-2ND LINE, (Reported) Patient Home Medication List Home Medication List Reviewed: Yes Constitutional: see HPI, No chills, No fever Respiratory: no symptoms reported Cardiovascular: no symptoms reported Gastrointestinal: see HPI, No abdominal pain, No nausea, No vomiting Musculoskeletal: no symptoms reported Skin: no symptoms reported Past Ucqnpti-Pvapqc-Ornepq Hx Patient Social History Alcohol Use: Denies Use Recreational Drug Use: No Drug of Choice: polydrug abuse, meth Smoking Status: Current Everyday Smoker Type Used: Cigarettes 2nd Hand Smoke Exposure: No Recent Foreign Travel: No Contact w/Someone Who Travel: No Recent Hopitalizations: No Immunizations Up To Date Tetanus Booster (TDap): Unknown Date of Pneumonia Vaccine: Aug 06, 2016 Date of Influenza Vaccine: Jun 24, 2016 Seasonal Allergies Seasonal Allergies: No Surgeries History of Surgeries: Yes (ovarian cyst removed with ovary, L hip fx, peg tube) Surgeries: Abdominal, Tracheostomy Respiratory History of Respiratory Disorde: Yes (hx of collapsed lung ) Respiratory Disorders: Pneumonia Cardiovascular History of Cardiac Disorders: Yes Cardiac Disorders: High Cholesterol, Hypertension Neurological History of Neurological Disord: Yes Neurological Disorders: Seizure Disorder Reproductive System Hx Reproductive Disorders: No Genitourinary History of Genitourinary Disor: Yes (Yeast in urine, UTI, inct) Gastrointestinal History of Gastrointestinal Di: Yes (peg tube) Gastrointestinal Disorders: Gastroesophageal Reflux, Gastrointestinal Bleed, Esophageal Varices Musculoskeletal History of Musculoskeletal Dis: Yes (Lt hip fx) Musculoskeletal Disorders: Fractures Endocrine History of Endocrine Disorders: Yes Endocrine Disorders: Diabetes, Insulin dep HEENT History of HEENT Disorders: No Hearing Impairment: Denies Cancer History of Cancer: No Psychosocial History of Psychiatric Problem: Yes Behavioral Health Disorders: Anxiety, Suicide Attempts, Depression Integumentary History of Skin or Integumenta: Yes (red heels, coccyx) Blood Transfusions History of Blood Disorders: No Adverse Reaction to a Blood Tr: No Reviewed Nursing Assessment Reviewed/Agree w Nursing PMH: Yes Family Medical History Significant Family History: No Pertinent Family Hx Family Medial History: Hypertension 19 FATHER Physical Exam Vital Signs Capillary Refill : General Appearance: No Apparent Distress, WD/WN Respiratory: Lungs Clear, Normal Breath Sounds Cardiovascular: Regular Rate, Rhythm, No Murmur Gastrointestinal: Normal Bowel Sounds, Non Tender, Soft, Other (feeding tube displaced from the left upper abdomen. Stoma clean without any significant findings of infection.) Neurologic/Psychiatric: Alert, Oriented x3 Skin: Normal Color, Warm/Dry Progress/Results/Core Measures Suspected Sepsis SIRS Temperature: Pulse: Respiratory Rate: Blood Pressure / Mean: Results/Orders Vital Signs/I&O Capillary Refill : Progress Note : Progress Note Seen and evaluated. Feeding tube placement done with 22 Ethiopian feeding tube with balloon filled with 10 mL of sterile water. Gastric contents noted in tube. Tube secured and dressed. Discharged back to shelter with return precautions. Patient verbalize understanding instructions and agreement with plan. Departure Impression Impression: Primary Impression: PEG tube malfunction Additional Impression: Encounter for feeding tube placement Disposition: 01 HOME, SELF-CARE Condition: Improved Departure-Patient Inst. Decision time for Depature: 06:14 Referrals: RANDI RIBEIRO DO (PCP/Family) Primary Care Physician Patient Instructions: How to Care for Your PEG Tube Add. Discharge Instructions: Continue to secure tube and provide local wound care as previously indicated. Tube may be used. Follow-up with your doctor as needed. Return for worse pain , fever, vomiting, weakness, breathing problems or other concerns as needed. GARRISON HANKS MD Sep 26, 2017 06:15
[2017-09-26 06:17] VITALS: BP 0/0
== END 2017-09-26 06:18 | disposition home or self-care (01) ==
LOC: EDUNIT# 06:05 → ER 06:06
DX: K94.23 Gastrostomy malfunction (principal); E78.00 Pure hypercholesterolemia, unspecified; I10 Essential (primary) hypertension; K21.9 Gastro-esophageal reflux disease without esophagitis; G40.909 Epilepsy, unspecified, not intractable, without status epilepticus; E11.9 Type 2 diabetes mellitus without complications; F41.9 Anxiety disorder, unspecified; F32.9 Major depressive disorder, single episode, unspecified; F17.210 Nicotine dependence, cigarettes, uncomplicated; Z87.448 Personal history of other diseases of urinary system; Z91.5 Personal history of self-harm; Z87.01 Personal history of pneumonia (recurrent); Z93.0 Tracheostomy status; Z87.19 Personal history of other diseases of the digestive system; Z87.440 Personal history of urinary (tract) infections; Z88.2 Allergy status to sulfonamides; Z79.51 Long term (current) use of inhaled steroids; Z79.82 Long term (current) use of aspirin; Z79.4 Long term (current) use of insulin
CPT/HCPCS: 43760

== ENCOUNTER 2017-10-20 10:07 | Emergency (ER) | payer MEDICAID ==
[~2017-10-20] VITALS: Ht 157.5 cm; Wt 51.3 kg
[~2017-10-20 10:07] MED LIST changes: -CITA20TA7 PEG; -CITA20TA7 PO; +CITA20TA9 PEG; +CITA20TA9 PO
--- OUTSIDE RECORDS SUMMARY | 2017-10-20 10:12 | XMS REPORT | Clinical Summary ---
Author Author [facility] Organization [facility] Address Unknown Phone Unavailable Care Team Providers Care Book Shelver Name Role Phone Self, Referral PCP Unavailable Source Comments Some departments are not documenting in the electronic medical record. If you do not see the information that you expected, contact Release of Information in the Health Information Management department at [phone] for further assistance in locating additional records.[facility] Allergies Not on File Current Medications [...]
--- NOTE | 2017-10-20 10:25 | ED General ---
General Chief Complaint: Catheter/Drain/Tube Problems Stated Complaint: TUBE FELL OUT Source of Information: Patient Exam Limitations: No Limitations History of Present Illness Date Seen by Provider: Oct 20, 2017 Time Seen by Provider: 10:21 Initial Comments The patient is a 41-year-old white female sent by ambulance from [facility]. This is her eighth visit this year for a dislodged PEG tube. She states this came out while being fed about one half hour prior to arrival. The nursing staff there also stated she seemed to have a rattle and relative hypoxia. The patient states that she is to have an esophageal stent placed in [place] on October 25. She believes this will solve the rattling problem and aid her in the ability to take food stuff by mouth Timing/Duration: 1/2 Hour Allergies and Home Medications Allergies Coded Allergies: Sulfa (Sulfonamide Antibiotics) (Verified Allergy, Mild, Rash, 07/12/16) Home Medications Acetaminophen 500 Mg Tablet, 500 MG PO Q6H PRN for MILD PAIN/FEVER, (Reported) Albuterol Sulfate 2.5 Mg/3 Ml Vial.neb, 2.5 MG NEB TID, (Reported) START DATE 08-28-17 END DATE 09-07-17 Albuterol Sulfate 90 Mcg Aer.pow.ba, 2 PUFF IH TID Prescribed by: ANAMIKA JENNINGS on 09/03/17 0942 Alprazolam 0.25 Mg Tablet, 0.25 MG PO BID, (Reported) Aspirin 81 Mg Tablet.dr, 81 MG PO DAILY, (Reported) Carvedilol 3.125 Mg Tablet, 3.125 MG PO BID, (Reported) HOLD FOR SBP <100 OR PULSE <60 Citalopram Hydrobromide 20 Mg Tablet, 20 MG PO DAILY, (Reported) Docusate Sodium 100 Mg Tablet, 100 MG PO BID, (Reported) Glucagon,Human Recombinant 1 Mg/Kit Soln, 1 MG IM UD PRN for HYPOGLYCEMIA, ( Reported) Guaifenesin/Dextromethorphan 1 Each Tab.er.12h, 1 TAB PO BID, (Reported) Guaifenesin/Dextromethorphan 5 Ml Syrup, 10 ML PO Q4H PRN for COUGH, (Reported) Insulin Detemir 100 Unit/1 Ml Insuln.pen, 18 UNITS SC BID, (Reported) Insulin Regular, Human 1,000 Units/10 Ml Soln, SQ QID, (Reported) 60-200 =0 UNITS 201-250=3 UNITS 251-300=5 UNITS 301-350=7 UNITS 351-400=9 UNITS CALL MD IF OVER 400 Lovastatin 10 Mg Tablet, 10 MG PO HS, (Reported) Pantoprazole Sodium 40 Mg Tablet.dr, 40 MG PO DAILY, (Reported) Polyethylene Glycol 3350 119 Gm Powder, 17 GM PO DAILY PRN for CONSTIPATION-2ND LINE, (Reported) Patient Home Medication List Home Medication List Reviewed: Yes Review of Systems Constitutional: see HPI EENTM: no symptoms reported Respiratory: other (cough and rattle) Cardiovascular: no symptoms reported Gastrointestinal: see HPI Musculoskeletal: no symptoms reported Skin: no symptoms reported Psychiatric/Neurological: No Symptoms Reported Hematologic/Lymphatic: No Symptoms Reported Immunological/Allergic: no symptoms reported Past Vrzmwvb-Ysihaj-Wyhmpn Hx Patient Social History Alcohol Use: Denies Use Recreational Drug Use: No Drug of Choice: polydrug abuse, meth Smoking Status: Current Everyday Smoker Type Used: Cigarettes 2nd Hand Smoke Exposure: No Recent Hopitalizations: No Immunizations Up To Date Tetanus Booster (TDap): Unknown Date of Pneumonia Vaccine: Aug 06, 2016 Date of Influenza Vaccine: Jun 24, 2016 Seasonal Allergies Seasonal Allergies: No Past Medical History Surgeries: Yes (ovarian cyst removed with ovary, L hip fx, peg tube) Abdominal, Tracheostomy Respiratory: Yes (hx of collapsed lung ) Pneumonia Cardiac: Yes High Cholesterol, Hypertension Neurological: Yes Seizure Disorder Reproductive Disorders: No Genitourinary: Yes (Yeast in urine, UTI, inct) Gastrointestinal: Yes (peg tube) Gastroesophageal Reflux, Gastrointestinal Bleed, Esophageal Varices Musculoskeletal: Yes (Lt hip fx) Fractures Endocrine: Yes Diabetes, Insulin dep HEENT: No Hearing Impairment: Denies Cancer: No Psychosocial: Yes Anxiety, Suicide Attempts, Depression Integumentary: Yes (red heels, coccyx) Blood Disorders: No Adverse Reaction/Blood Tranf: No Family Medical History Hypertension 19 FATHER No Pertinent Family Hx Physical Exam Vital Signs Vital Signs - First Documented 10/20/17 10/20/17 10:10 10:35 Temp 97.1 Pulse 78 Resp 18 B/P (MAP) 99/70 (80) Pulse Ox 100 O2 Delivery Room Air Capillary Refill : General Appearance: Mild Distress, Other (bubbling sound from throat) Eyes: Bilateral Eye Normal Inspection HEENT: Normal ENT Inspection Neck: Full Range of Motion, Normal Inspection, Non Tender, Supple, Carotid Bruit Respiratory: Other (bubbling sound) Cardiovascular: Regular Rate, Rhythm, No Edema, No Gallop, No JVD, No Murmur, Normal Peripheral Pulses Gastrointestinal: Normal Bowel Sounds, No Organomegaly, No Pulsatile Mass, Non Tender, Soft Extremity: Normal Capillary Refill Neurologic/Psychiatric: Alert Skin: Normal Color, Warm/Dry Progress/Results/Core Measures Suspected Sepsis SIRS Temperature: Pulse: Respiratory Rate: Laboratory Tests 10/20/17 10:20: White Blood Count 9.5 Blood Pressure / Mean: Laboratory Tests 10/20/17 10:20: Platelet Count 376 Results/Orders Lab Results Laboratory Tests Test 10/20/17 10:20 Range/Units White Blood Count 9.5 4.3-11.0 10^3/uL Red Blood Count 4.54 4.35-5.85 10^6/uL Hemoglobin 11.3 L 11.5-16.0 G/DL Hematocrit 37 35-52 % Mean Corpuscular Volume 82 80-99 FL Mean Corpuscular Hemoglobin 25 25-34 PG Mean Corpuscular Hemoglobin Concent 31 L 32-36 G/DL Red Cell Distribution Width 16.1 H 10.0-14.5 % Platelet Count 376 130-400 10^3/uL Mean Platelet Volume 10.8 H 7.4-10.4 FL Neutrophils (%) (Auto) 74 42-75 % Lymphocytes (%) (Auto) 15 12-44 % Monocytes (%) (Auto) 7 0-12 % Eosinophils (%) (Auto) 3 0-10 % Basophils (%) (Auto) 0 0-10 % Neutrophils # (Auto) 7.0 1.8-7.8 X 10^3 Lymphocytes # (Auto) 1.4 1.0-4.0 X 10^3 Monocytes # (Auto) 0.6 0.0-1.0 X 10^3 Eosinophils # (Auto) 0.3 0.0-0.3 10^3/uL Basophils # (Auto) 0.0 0.0-0.1 10^3/uL My Orders Orders - MYKEL POLANCO MD Cbc With Automated Diff (10/20/17 10:20) Chest 1 View, Ap/Pa Only (10/20/17 10:20) Vital Signs/I&O 10/20/17 10/20/17 10:10 10:35 Temp 97.1 Pulse 78 71 Resp 18 18 B/P (MAP) 99/70 (80) 110/70 (83) Pulse Ox 100 92 O2 Delivery Room Air Capillary Refill : Departure Communication (Admissions) A PEG tube with lubricant was easily replaced. 10 mL of liquid were instilled in the balloon Impression Primary Impression: Encounter for feeding tube placement Disposition: HOME, SELF-CARE Condition: Stable/Unchanged Departure-Patient Inst. Decision time for Depature: 11:33 Referrals: RANDI RIBEIRO DO (PCP/Family) Primary Care Physician Add. Discharge Instructions: All discharge instructions reviewed with patient and/or family. Voiced understanding. Resume usual routine and feedings. Keep appointment in [place] on October 25 for planned stenting of esophagus MYKEL POLANCO MD Oct 20, 2017 10:25
[2017-10-20 10:35] VITALS: BP 110/70
--- NOTE | 2017-10-20 10:51 | Diagnostic Imaging Report ---
EXAMINATION: Chest radiograph, portable AP view. DATE: 10/20/2017 at 1043 hours. INDICATION: 41-year-old female, low oxygen saturations. COMPARISON: 09/03/2017. FINDINGS: Stable overall appearance of the cardiomediastinal silhouette. There is no identified pneumothorax. There is no large pleural effusion. There are predominantly interstitial opacities with mid and lower lung zone predominance which are changed since comparison exam. There is a stent projecting over the expected location of the esophagus. IMPRESSION: 1. New mid and lower lung zone predominant interstitial opacities. Differential considerations would include pulmonary interstitial edema and atypical infection. Dictated by: Dictated on workstation # [id number]
[2017-10-20 11:02] LABS: BASOPHILS % (AUTO) 0 % (0-10); EOSINOPHILS # (AUTO) 0.3 10^3/uL (0.0-0.3); EOSINOPHILS % (AUTO) 3 % (0-10); HEMATOCRIT 37 % (35-52); HEMOGLOBIN 11.3 G/DL (11.5-16.0); LYMPHOCYTES # (AUTO) 1.4 X 10^3 (1.0-4.0); LYMPHOCYTES % (AUTO) 15 % (12-44); MEAN CORPUSCULAR HEMOGLOBIN 25 PG (25-34); MEAN CORPUSCULAR HGB CONC 31 G/DL (32-36); MEAN CORPUSCULAR VOLUME 82 FL (80-99); MEAN PLATELET VOLUME 10.8 FL (7.4-10.4); MONOCYTES # (AUTO) 0.6 X 10^3 (0.0-1.0); MONOCYTES % (AUTO) 7 % (0-12); NEUTROPHILS % (AUTO) 74 % (42-75); PLATELET COUNT 376 10^3/uL (130-400); RED BLOOD COUNT 4.54 10^6/uL (4.35-5.85); RED CELL DISTRIBUTION WIDTH 16.1 % (10.0-14.5); WHITE BLOOD COUNT 9.5 10^3/uL (4.3-11.0)
== END 2017-10-20 12:07 | disposition home or self-care (01) ==
LOC: EDUNIT# 10:07 → ER 10:08
DX: T85.528A Displacement of other gastrointestinal prosthetic devices, implants and grafts, initial encounter (principal); E78.00 Pure hypercholesterolemia, unspecified; I10 Essential (primary) hypertension; G40.909 Epilepsy, unspecified, not intractable, without status epilepticus; K21.9 Gastro-esophageal reflux disease without esophagitis; F41.9 Anxiety disorder, unspecified; F32.9 Major depressive disorder, single episode, unspecified; F17.210 Nicotine dependence, cigarettes, uncomplicated; Z87.81 Personal history of (healed) traumatic fracture; Z87.19 Personal history of other diseases of the digestive system; Z79.82 Long term (current) use of aspirin; Z79.4 Long term (current) use of insulin; Z88.2 Allergy status to sulfonamides; Z91.5 Personal history of self-harm
CPT/HCPCS: 36415; 43760; 71045; 85025

== ENCOUNTER 2017-11-14 22:10 | Observation (INO) | payer MEDICAID ==
[~2017-11-14] VITALS: Ht 157.5 cm; Wt 48.6 kg
--- OUTSIDE RECORDS SUMMARY | 2017-11-14 22:15 | XMS REPORT | Clinical Summary ---
Author Author [facility] Organization [facility] Address Unknown Phone Unavailable Care Team Providers Care Automation Clerk Name Role Phone Self, Referral PCP Unavailable Source Comments Some departments are not documenting in the electronic medical record. If you do not see the information that you expected, contact Release of Information in the Health Information Management department at [phone] for further assistance in locating additional records.[facility] Allergies Not on File Current Medications Not [...]
--- NOTE | 2017-11-14 22:20 | ED GI ---
General Stated Complaint: FEEDING TUBE OUT Source of Information: Patient Exam Limitations: No Limitations History of Present Illness Date Seen by Provider: November 14, 2017 Time Seen by Provider: 22:20 Initial Comments PEG tube fell out 30 minutes ago. No complaints. Timing/Duration: 1-2 Days Radiation: No Radiation Associated Symptoms: Denies Symptoms Allergies and Home Medications Allergies Coded Allergies: Sulfa (Sulfonamide Antibiotics) (Verified Allergy, Mild, Rash, 07/12/16) Home Medications Acetaminophen 500 Mg Tablet, 500 MG PO Q6H PRN for MILD PAIN/FEVER, (Reported) Albuterol Sulfate 2.5 Mg/3 Ml Vial.neb, 2.5 MG NEB TID, (Reported) START DATE 08-28-17 END DATE 09-07-17 Albuterol Sulfate 90 Mcg Aer.pow.ba, 2 PUFF IH TID Prescribed by: ANAMIKA JENNINGS on 09/03/17 0942 Alprazolam 0.25 Mg Tablet, 0.25 MG PO BID, (Reported) Aspirin 81 Mg Tablet.dr, 81 MG PO DAILY, (Reported) Carvedilol 3.125 Mg Tablet, 3.125 MG PO BID, (Reported) HOLD FOR SBP <100 OR PULSE <60 Citalopram Hydrobromide 20 Mg Tablet, 20 MG PO DAILY, (Reported) Docusate Sodium 100 Mg Tablet, 100 MG PO BID, (Reported) Glucagon,Human Recombinant 1 Mg/Kit Soln, 1 MG IM UD PRN for HYPOGLYCEMIA, ( Reported) Guaifenesin/Dextromethorphan 1 Each Tab.er.12h, 1 TAB PO BID, (Reported) Guaifenesin/Dextromethorphan 5 Ml Syrup, 10 ML PO Q4H PRN for COUGH, (Reported) Insulin Detemir 100 Unit/1 Ml Insuln.pen, 18 UNITS SC BID, (Reported) Insulin Regular, Human 1,000 Units/10 Ml Soln, SQ QID, (Reported) 60-200 =0 UNITS 201-250=3 UNITS 251-300=5 UNITS 301-350=7 UNITS 351-400=9 UNITS CALL MD IF OVER 400 Lovastatin 10 Mg Tablet, 10 MG PO HS, (Reported) Pantoprazole Sodium 40 Mg Tablet.dr, 40 MG PO DAILY, (Reported) Polyethylene Glycol 3350 119 Gm Powder, 17 GM PO DAILY PRN for CONSTIPATION-2ND LINE, (Reported) Patient Home Medication List Home Medication List Reviewed: Yes (she smokes on) Review of Systems Constitutional: see HPI EENTM: No Symptoms Reported Respiratory: See HPI, Cough (chronic and unchanged); Denies Shortness of Air Cardiovascular: See HPI; Denies Chest Pain, Denies Irregular Heart Rate Genitourinary: No Symptoms Reported Musculoskeletal: no symptoms reported Skin: no symptoms reported Psychiatric/Neurological: No Symptoms Reported Endocrine: No Symptoms Reported Past Snnwrnl-Vcsucq-Onxzxa Hx Patient Social History Drug of Choice: polydrug abuse, meth Type Used: Cigarettes 2nd Hand Smoke Exposure: No Recent Foreign Travel: No Contact w/Someone Who Travel: No Recent Hopitalizations: No Immunizations Up To Date Tetanus Booster (TDap): Unknown Date of Pneumonia Vaccine: Aug 06, 2016 Date of Influenza Vaccine: Jun 24, 2016 Seasonal Allergies Seasonal Allergies: No Past Medical History Surgeries: Yes (ovarian cyst removed with ovary, L hip fx, peg tube) Abdominal, Tracheostomy Respiratory: Yes (hx of collapsed lung ) Pneumonia Cardiac: Yes High Cholesterol, Hypertension Neurological: Yes Seizure Disorder Reproductive Disorders: No Genitourinary: Yes (Yeast in urine, UTI, inct) Gastrointestinal: Yes (peg tube) Gastroesophageal Reflux, Gastrointestinal Bleed, Esophageal Varices Musculoskeletal: Yes (Lt hip fx) Fractures Endocrine: Yes Diabetes, Insulin dep HEENT: No Hearing Impairment: Denies Cancer: No Psychosocial: Yes Anxiety, Suicide Attempts, Depression Integumentary: Yes (red heels, coccyx) Blood Disorders: No Adverse Reaction/Blood Tranf: No Family Medical History Hypertension 19 FATHER No Pertinent Family Hx Physical Exam Vital Signs Vital Signs - First Documented 11/14/17 22:12 Temp 97.5 Pulse 93 Resp 22 B/P (MAP) 118/80 (93) Pulse Ox 83 O2 Delivery Room Air Capillary Refill : General Appearance: WD/WN, no apparent distress, thin, other (chronically ill and appears much older than stated age but alert and oriented) HEENT: PERRL/EOMI, normal ENT inspection, other (tracheostomy scar in the anterior neck) Neck: non-tender, full range of motion Respiratory: decreased breath sounds, rhonchi (throughout improves with coughing but does not go away.) Cardiovascular: regular rate, rhythm, no murmur Gastrointestinal: normal bowel sounds, non tender, soft, other (PEG tube is absent. Stoma remains patent. 24 [place] PEG tube replaced easilyat the bedside with aspiration of yellowish material using syringe.) Extremities: normal range of motion, non-tender Neurologic/Psychiatric: alert, normal mood/affect, oriented x 3 Skin: normal color, warm/dry Exam Comments oon arrival her oxygen saturation 79% with good waveform. Increase is 96% with 5 L. She denies feeling shortness of breath. She does have horrible sounding cough with rhonchi but she states this is no different than it ever is. Focused Exam Lactate Level 11/14/17 22:28: Lactic Acid Level 0.69 Lactic Acid Level Laboratory Tests Test 11/14/17 22:28 Lactic Acid Level 0.69 MMOL/L (0.50-2.00) Progress/Results/Core Measures Results/Orders Lab Results Laboratory Tests Test 11/14/17 22:28 Range/Units White Blood Count 10.8 4.3-11.0 10^3/uL Red Blood Count 4.93 4.35-5.85 10^6/uL Hemoglobin 11.9 11.5-16.0 G/DL Hematocrit 40 35-52 % Mean Corpuscular Volume 80 80-99 FL Mean Corpuscular Hemoglobin 24 L 25-34 PG Mean Corpuscular Hemoglobin Concent 30 L 32-36 G/DL Red Cell Distribution Width 17.2 H 10.0-14.5 % Platelet Count 389 130-400 10^3/uL Mean Platelet Volume 10.6 H 7.4-10.4 FL Neutrophils (%) (Auto) 70 42-75 % Lymphocytes (%) (Auto) 20 12-44 % Monocytes (%) (Auto) 8 0-12 % Eosinophils (%) (Auto) 2 0-10 % Basophils (%) (Auto) 0 0-10 % Neutrophils # (Auto) 7.6 1.8-7.8 X 10^3 Lymphocytes # (Auto) 2.1 1.0-4.0 X 10^3 Monocytes # (Auto) 0.9 0.0-1.0 X 10^3 Eosinophils # (Auto) 0.3 0.0-0.3 10^3/uL Basophils # (Auto) 0.0 0.0-0.1 10^3/uL Prothrombin Time 13.8 12.2-14.7 SEC INR Comment 1.1 0.8-1.4 Sodium Level 139 135-145 MMOL/L Potassium Level 4.1 3.6-5.0 MMOL/L Chloride Level 100 98-107 MMOL/L Carbon Dioxide Level 28 21-32 MMOL/L Anion Gap 11 5-14 MMOL/L Blood Urea Nitrogen 17 7-18 MG/DL Creatinine 0.66 0.60-1.30 MG/DL Estimat Glomerular Filtration Rate > 60 BUN/Creatinine Ratio 26 Glucose Level 216 H 70-105 MG/DL Lactic Acid Level 0.69 0.50-2.00 MMOL/L Calcium Level 9.9 8.5-10.1 MG/DL Total Bilirubin 0.4 0.1-1.0 MG/DL Aspartate Amino Transf (AST/SGOT) 16 5-34 U/L Alanine Aminotransferase (ALT/SGPT) 13 0-55 U/L Alkaline Phosphatase 102 40-136 U/L B-Type Natriuretic Peptide < 10.0 <100.0 PG/ML Total Protein 8.3 H 6.4-8.2 GM/DL Albumin 3.6 3.2-4.5 GM/DL My Orders Orders - RADHA REID TEACHING MANAGER Chest 1 View, Ap/Pa Only (11/14/17 22:20) Cbc With Automated Diff (11/14/17 22:20) Comprehensive Metabolic Panel (11/14/17 22:20) Blood Culture (11/14/17 22:32) Lactic Acid Analyzer (11/14/17 22:32) Protime With Inr (11/14/17 22:32) BNP (11/14/17 22:36) Albuterol/Ipra Inhalation Soln (Duoneb I (11/14/17 23:15) Svn Small Volume Nebulizer (11/14/17 23:02) Medications Given in ED Current Medications Medications Dose Ordered Sig/Juana Route Start Time Stop Time Status Last Admin Dose Admin Albuterol/ Ipratropium 3 ml ONCE ONCE INH 11/14/17 23:15 11/14/17 23:16 DC 11/14/17 23:13 3 ML Vital Signs/I&O 11/14/17 22:12 Temp 97.5 Pulse 93 Resp 22 B/P (MAP) 118/80 (93) Pulse Ox 83 O2 Delivery Room Air Departure Communication (Admissions) Time/Spoke to Admitting Phy: 23:21 I turned her oxygen off from4 L briefly. Her oxygen saturation quickly dropped from 96% on 4 L to 86%. Supplemental oxygen then restarted notified Dr. Dr. Ribeiro of these findings. I do not see any infiltrate on chest x-ray shows a normal CBC without a left shift, normal lactic acid, no tachycardia, no hypotension, no fevers. This is most likely mucous plugging of her airways. Impression Primary Impression: PEG tube malfunction Additional Impressions: Hypoxia Mucus plugging of bronchi Disposition: ADMITTED INPATIENT Condition: Stable Admissions Decision to Admit Reason: Admit from ER (General) Decision to Admit/Date: November 14, 2017 Time/Decision to Admit Time: 23:25 Departure-Patient Inst. Referrals: RANDI RIBEIRO DO (PCP/Family) Primary Care Physician RADHA REID APRN November 14, 2017 22:20
[2017-11-14 22:41] LABS: BASOPHILS % (AUTO) 0 % (0-10); EOSINOPHILS # (AUTO) 0.3 10^3/uL (0.0-0.3); EOSINOPHILS % (AUTO) 2 % (0-10); HEMATOCRIT 40 % (35-52); HEMOGLOBIN 11.9 G/DL (11.5-16.0); LYMPHOCYTES # (AUTO) 2.1 X 10^3 (1.0-4.0); LYMPHOCYTES % (AUTO) 20 % (12-44); MEAN CORPUSCULAR HEMOGLOBIN 24 PG (25-34); MEAN CORPUSCULAR HGB CONC 30 G/DL (32-36); MEAN CORPUSCULAR VOLUME 80 FL (80-99); MEAN PLATELET VOLUME 10.6 FL (7.4-10.4); MONOCYTES # (AUTO) 0.9 X 10^3 (0.0-1.0); MONOCYTES % (AUTO) 8 % (0-12); NEUTROPHILS # (AUTO) 7.6 X 10^3 (1.8-7.8); NEUTROPHILS % (AUTO) 70 % (42-75); PLATELET COUNT 389 10^3/uL (130-400); RED BLOOD COUNT 4.93 10^6/uL (4.35-5.85); RED CELL DISTRIBUTION WIDTH 17.2 % (10.0-14.5); WHITE BLOOD COUNT 10.8 10^3/uL (4.3-11.0)
[2017-11-14 22:51] LABS: INR 1.1 (0.8-1.4); PROTHROMBIN TIME PATIENT 13.8 SEC (12.2-14.7)
[2017-11-14 23:01] LABS: ALANINE AMINOTRANSFERASE 13 U/L (0-55); ALBUMIN 3.6 GM/DL (3.2-4.5); ALKALINE PHOSPHATASE 102 U/L (40-136); BILIRUBIN,TOTAL 0.4 MG/DL (0.1-1.0); BUN/CREATININE RATIO 26; CALCIUM 9.9 MG/DL (8.5-10.1); CARBON DIOXIDE 28 MMOL/L (21-32); CHLORIDE 100 MMOL/L (98-107); CREATININE SERUM 0.66 MG/DL (0.60-1.30); GFR ESTIMATED > 60; GLUCOSE 216 MG/DL (70-105); POTASSIUM 4.1 MMOL/L (3.6-5.0); SODIUM 139 MMOL/L (135-145); TOTAL PROTEIN 8.3 GM/DL (6.4-8.2)
[2017-11-14] MEDS ORDERED: RT-ALBUTEROL/IPRATROPIUM 3 ML (DUONEB) VIAL INH ONE (23:15)
[2017-11-15] MEDS ORDERED: CATHETER FLUSH 10 ML SYR IV PRN (02:30)
[2017-11-15] MEDS: NS IV 1000 ML 1,000 ML IV SCH ×2 (02:45→16:15)
[2017-11-15] MEDS ORDERED: RT-ALBUTEROL/IPRATROPIUM 3 ML (DUONEB) VIAL INH PRN (02:45)
[2017-11-15] MEDS: cefTRIAXone 1 GM/NS 50 ML IVPB IV SCH ×2 (02:46)
[2017-11-15 04:49] VITALS: BP 106/67
[2017-11-15] MEDS: CATHETER FLUSH 10 ML SYR IV SCH ×3 (05:40→22:00)
--- NOTE | 2017-11-15 06:11 | Diagnostic Imaging Report ---
INDICATION: Shortness of air. COMPARISON: 10/20/2017 FINDINGS: Single frontal view of the chest demonstrates normal heart size and pulmonary vascularity. The lungs are well aerated and clear. No large pleural effusion or pneumothorax is seen. The visualized osseous structures show no acute abnormalities. Indwelling esophageal stent is noted and is in stable position. IMPRESSION: 1. No acute cardiopulmonary process. Dictated by: Dictated on workstation # [id number]
[2017-11-15] MEDS: inSUlin ASPART (NovoLOG) 1 UNIT/0.01 ML (CHARGE PER UNIT) SC SCH ×4 (06:16→23:50)
[2017-11-15 06:44] LABS: BASOPHILS % (AUTO) 0 % (0-10); EOSINOPHILS # (AUTO) 0.4 10^3/uL (0.0-0.3); EOSINOPHILS % (AUTO) 4 % (0-10); HEMATOCRIT 37 % (35-52); LYMPHOCYTES # (AUTO) 2.5 X 10^3 (1.0-4.0); LYMPHOCYTES % (AUTO) 24 % (12-44); MEAN CORPUSCULAR HEMOGLOBIN 24 PG (25-34); MEAN CORPUSCULAR HGB CONC 30 G/DL (32-36); MEAN CORPUSCULAR VOLUME 81 FL (80-99); MEAN PLATELET VOLUME 10.8 FL (7.4-10.4); MONOCYTES # (AUTO) 0.9 X 10^3 (0.0-1.0); MONOCYTES % (AUTO) 8 % (0-12); NEUTROPHILS # (AUTO) 6.7 X 10^3 (1.8-7.8); NEUTROPHILS % (AUTO) 64 % (42-75); PLATELET COUNT 358 10^3/uL (130-400); RED BLOOD COUNT 4.53 10^6/uL (4.35-5.85); RED CELL DISTRIBUTION WIDTH 17.2 % (10.0-14.5); WHITE BLOOD COUNT 10.5 10^3/uL (4.3-11.0)
[2017-11-15] MEDS: RT-ALBUTEROL/IPRATROPIUM 3 ML (DUONEB) VIAL INH SCH ×4 (07:01→21:40)
--- NOTE | 2017-11-15 07:07 | Diagnostic Imaging Report ---
EXAMINATION: Chest radiograph, portable AP view. DATE: November 15, 2017 at 0646 hours. INDICATION: 42-year-old female, shortness of breath. COMPARISON: November 14, 2017. FINDINGS: There is a stent graft projecting over the expected location of the esophagus extending into the upper abdomen. Stable overall appearance of the cardiomediastinal silhouette. There is no identified pneumothorax. There is no large pleural effusion. There is no identified focal airspace consolidation. IMPRESSION: 1. No identified interval acute cardiopulmonary abnormality. Dictated by: Dictated on workstation # [id number]
[2017-11-15 07:16] LABS: ALANINE AMINOTRANSFERASE 13 U/L (0-55); ALBUMIN 3.2 GM/DL (3.2-4.5); ALKALINE PHOSPHATASE 89 U/L (40-136); BILIRUBIN,TOTAL 0.2 MG/DL (0.1-1.0); BUN/CREATININE RATIO 33; CALCIUM 9.4 MG/DL (8.5-10.1); CARBON DIOXIDE 30 MMOL/L (21-32); CHLORIDE 102 MMOL/L (98-107); CREATININE SERUM 0.54 MG/DL (0.60-1.30); GFR ESTIMATED > 60; POTASSIUM 3.7 MMOL/L (3.6-5.0); SODIUM 142 MMOL/L (135-145); TOTAL PROTEIN 7.5 GM/DL (6.4-8.2)
[2017-11-15 07:49] LABS: GLUCOSE 58 MG/DL (70-105)
[2017-11-15 08:00] VITALS: BP 104/65
--- NOTE | 2017-11-15 08:04 | Pulmonary Consultation ---
History of Present Illness History of Present Illness Date of Consultation 11/15/17 08:02 Time Seen by Provider: 08:02 Date of Admission History of Present Illness 42yo patient admitted secondary to malfunctioning PEG tube. She was found to be hypoxic in the ED. She was placed on oxygen and admitted to 4th floor. I am consulted for pulmonary management. Allergies and Home Medications Allergies Coded Allergies: Sulfa (Sulfonamide Antibiotics) (Verified Allergy, Mild, Rash, 07/12/16) Home Medications Acetaminophen 500 Mg Tablet, 500 MG PO Q6H PRN for PAIN-MILD OR TEMPATURE, ( Reported) Albuterol Sulfate 1 Puff Puff, 2 PUFF IH TID, (Reported) 1 PUFF = 90 MCG Alprazolam 0.25 Mg Tablet, 0.25 MG PO BID, (Reported) Aspirin 81 Mg Tablet.dr, 81 MG PO DAILY, (Reported) Carvedilol 3.125 Mg Tablet, 3.125 MG PO BID, (Reported) HOLD FOR SBP <100 OR PULSE <60 Cefdinir 300 Mg Capsule, 300 MG PO BID Prescribed by: SUNDAR LERMA on 11/17/17 1234 Citalopram Hydrobromide 20 Mg Tablet, 20 MG PO DAILY, (Reported) Docusate Sodium 100 Mg Tablet, 100 MG PO BID, (Reported) Glucagon,Human Recombinant 1 Mg/Kit Soln, 1 MG IM UD PRN for HYPOGLYCEMIA, ( Reported) Guaifenesin/Dextromethorphan 1 Each Tab.er.12h, 1 TAB PO BID, (Reported) Guaifenesin/Dextromethorphan 5 Ml Syrup, 10 ML PO Q4H PRN for COUGH, (Reported) Guaifenesin/Dextromethorphan 180 Ml Liquid, 20 ML PO BID, (Reported) Insulin Detemir 100 Unit/1 Ml Insuln.pen, 18 UNITS SC BID, (Reported) Insulin Regular, Human 1,000 Units/10 Ml Soln, SQ QID, (Reported) 60-200 =0 UNITS 201-250=3 UNITS 251-300=5 UNITS 301-350=7 UNITS 351-400=9 UNITS CALL MD IF OVER 400 Lovastatin 10 Mg Tablet, 10 MG PO HS, (Reported) Pantoprazole Sodium 40 Mg Tablet.dr, 40 MG PO BID, (Reported) Prednisone 10 Mg Tab.ds.pk, 10 MG PO DAILY Take 6 tabs(60mg)daily,decrease by 1 tab(10MG)daily. Prescribed by: SUNDAR LERMA on 11/17/17 1234 Sucralfate 1 Gm/10 Ml Oral.susp, 10 ML PO ACHS, (Reported) Past Zkjugzk-Zwdzsa-Izbhcn Hx Patient Social History Alcohol Use: Denies Use Recreational Drug Use: No Drug of Choice: polydrug abuse, meth Smoking Status: Current Everyday Smoker Type Used: Cigarettes 2nd Hand Smoke Exposure: No Recent Foreign Travel: No Contact w/Someone Who Travel: No Recent Infectious Disease Expo: No Recent Hopitalizations: No Immunizations Up To Date Tetanus Booster (TDap): Unknown Date of Pneumonia Vaccine: Aug 06, 2016 Date of Influenza Vaccine: Jun 24, 2016 Seasonal Allergies Seasonal Allergies: No Past Medical History Surgeries: Yes (ovarian cyst removed with ovary, L hip fx, peg tube) Abdominal, Tracheostomy Respiratory: Yes (hx of collapsed lung ) Pneumonia Cardiac: Yes High Cholesterol, Hypertension Neurological: Yes Seizure Disorder Reproductive Disorders: No Genitourinary: Yes (Yeast in urine, UTI, inct) Gastrointestinal: Yes (peg tube) Gastroesophageal Reflux, Gastrointestinal Bleed, Esophageal Varices Musculoskeletal: Yes (Lt hip fx) Fractures Endocrine: Yes Diabetes, Insulin dep HEENT: No Hearing Impairment: Denies Cancer: No Psychosocial: Yes Anxiety, Suicide Attempts, Depression Integumentary: Yes (red heels, coccyx) Blood Disorders: No Adverse Reaction/Blood Tranf: No Family Medical History Hypertension 19 FATHER No Pertinent Family Hx Review of Systems Time Seen by Provider: 13:20 Exam Exam Vital Signs Date Time Temp Pulse Resp B/P (MAP) Pulse Ox O2 Delivery O2 Flow Rate FiO2 11/15/17 07:00 95 Nasal Cannula 2.00 11/15/17 04:49 97.6 76 17 106/67 (80) 95 Nasal Cannula 2.00 11/15/17 02:30 65 93 28 11/15/17 02:30 93 2.00 11/15/17 00:02 95 Nasal Cannula 2.00 11/14/17 23:54 98.4 95 22 105/71 96 Nasal Cannula 4.00 11/14/17 22:12 97.5 93 22 118/80 (93) 83 Room Air I & O 11/15/17 07:00 Intake Total 240 ml Output Total 0 ml Balance 240 ml General Appearance: No Apparent Distress, Anxious HEENT: Normal ENT Inspection, Pharynx Normal Neck: Full Range of Motion, Normal Inspection, Non Tender, Supple Respiratory: Chest Non Tender, No Accessory Muscle Use, No Respiratory Distress , Decreased Breath Sounds Cardiovascular: Regular Rate, Rhythm, No Edema, No Gallop, No Murmur Capillary Refill: Less Than 3 Seconds Gastrointestinal: normal bowel sounds, non tender, soft, other (PEG tube is absent. Stoma remains patent. 24 [place] PEG tube replaced easilyat the bedside with aspiration of yellowish material using syringe.) Extremity: Normal Capillary Refill, Normal Inspection, Non Tender Neurologic/Psychiatric: Alert Skin: Normal Color Lymphatic: No Adenopathy Results Lab Laboratory Tests 11/14/17 22:28 11/15/17 06:05 Assessment/Plan Assessment/Plan Acute respiratory distress secondary to hypoxia and mucous plugging -Solumedrol, SVNs, -Oxygen -montior Peg tube dysfunction Esophageal stenosis with stent placement Tobacco use -education Illicit drug use AUDELIA JUSTICE DO November 15, 2017 08:04
--- NOTE | 2017-11-15 08:20 | History & Physicial ---
History of Present Illness History of Present Illness Reason for visit/HPI Patient came to the emergency room due to PEG tube falling out. Patient found to be hypoxic. Patient probably has mucous plugs. Patient admitted Date of Admission November 14, 2017 at 22:54 Time Seen by Provider: 08:15 I consulted on this patient on 11/15/17 08:16 Attending Physician Israel Ribeiro DO Admitting Physician Israel Ribeiro DO Consult Allergies and Home Medications Allergies Coded Allergies: Sulfa (Sulfonamide Antibiotics) (Verified Allergy, Mild, Rash, 07/12/16) Home Medications Acetaminophen 500 Mg Tablet, 500 MG PO Q6H PRN for MILD PAIN/FEVER, (Reported) Albuterol Sulfate 2.5 Mg/3 Ml Vial.neb, 2.5 MG NEB TID, (Reported) START DATE 08-28-17 END DATE 09-07-17 Albuterol Sulfate 90 Mcg Aer.pow.ba, 2 PUFF IH TID Prescribed by: ANAMIKA JENNINGS on 09/03/17 0942 Alprazolam 0.25 Mg Tablet, 0.25 MG PO BID, (Reported) Aspirin 81 Mg Tablet.dr, 81 MG PO DAILY, (Reported) Carvedilol 3.125 Mg Tablet, 3.125 MG PO BID, (Reported) HOLD FOR SBP <100 OR PULSE <60 Citalopram Hydrobromide 20 Mg Tablet, 20 MG PO DAILY, (Reported) Docusate Sodium 100 Mg Tablet, 100 MG PO BID, (Reported) Glucagon,Human Recombinant 1 Mg/Kit Soln, 1 MG IM UD PRN for HYPOGLYCEMIA, ( Reported) Guaifenesin/Dextromethorphan 1 Each Tab.er.12h, 1 TAB PO BID, (Reported) Guaifenesin/Dextromethorphan 5 Ml Syrup, 10 ML PO Q4H PRN for COUGH, (Reported) Insulin Detemir 100 Unit/1 Ml Insuln.pen, 18 UNITS SC BID, (Reported) Insulin Regular, Human 1,000 Units/10 Ml Soln, SQ QID, (Reported) 60-200 =0 UNITS 201-250=3 UNITS 251-300=5 UNITS 301-350=7 UNITS 351-400=9 UNITS CALL MD IF OVER 400 Lovastatin 10 Mg Tablet, 10 MG PO HS, (Reported) Pantoprazole Sodium 40 Mg Tablet.dr, 40 MG PO DAILY, (Reported) Polyethylene Glycol 3350 119 Gm Powder, 17 GM PO DAILY PRN for CONSTIPATION-2ND LINE, (Reported) Patient Home Medication List Home Medication List Reviewed: No Past Qhgklhn-Kiwvei-Dhxeok Hx Patient Social History Employed/Student: unemployed Alcohol Use: Denies Use Recreational Drug Use: No Drug of Choice: polydrug abuse, meth Smoking Status: Current Everyday Smoker Type Used: Cigarettes 2nd Hand Smoke Exposure: No Recent Foreign Travel: No Contact w/other who traveled: No Recent Hopitalizations: No Recent Infectious Disease Expo: No Immunizations Up To Date Tetanus Booster (TDap): Unknown Date of Pneumonia Vaccine: Aug 06, 2016 Date of Influenza Vaccine: Jun 24, 2016 Seasonal Allergies Seasonal Allergies: No Surgeries Yes (ovarian cyst removed with ovary, L hip fx, peg tube) Abdominal, Tracheostomy Respiratory Yes (hx of collapsed lung ) Pneumonia Cardiovascular Yes High Cholesterol, Hypertension Neurological Yes Seizure Disorder Reproductive System Hx Reproductive Disorders: No Genitourinary Yes (Yeast in urine, UTI, inct) Gastrointestinal Yes (peg tube) Gastroesophageal Reflux, Gastrointestinal Bleed, Esophageal Varices Musculoskeletal Yes (Lt hip fx) Fractures Endocrine History of Endocrine Disorders: Yes Endocrine Disorders: Diabetes, Insulin dep HEENT History of HEENT Disorders: No Hearing Impairment: Denies Cancer No Psychosocial History of Psychiatric Problem: Yes Behavioral Health Disorders: Anxiety, Suicide Attempts, Depression Integumentary History of Skin or Integumenta: Yes (red heels, coccyx) Blood Transfusions History of Blood Disorders: No Adverse Reaction to a Blood Tr: No Family Medical History Significant Family History: No Pertinent Family Hx Family Hx: Hypertension 19 FATHER Constitutional: no symptoms reported EENTM: no symptoms reported Respiratory: wheezing, other (Hypoxic) Cardiovascular: no symptoms reported Gastrointestinal: no symptoms reported Genitourinary: no symptoms reported Physical Exam Vital Signs Vital Signs - First Documented 11/14/17 11/14/17 11/15/17 22:12 23:54 02:30 Temp 97.5 Pulse 93 Resp 22 B/P (MAP) 118/80 (93) Pulse Ox 83 O2 Delivery Room Air O2 Flow Rate 4.00 FiO2 28 Capillary Refill : Less Than 3 Seconds General Appearance: WD/WN, Thin, Other (Has PEG tube) Eyes: Bilateral Eye Normal Inspection HEENT: Normal ENT Inspection Neck: Full Range of Motion, Normal Inspection Respiratory: No Accessory Muscle Use, No Respiratory Distress, Other (Is oxygen hypoxia) Cardiovascular: Regular Rate, Rhythm, No Murmur Gastrointestinal: Other (PEG tube) Assessment/Plan Assessment and Plan Hypoxic. PEG tube feeding. Diabetes. Esophageal stenosis Admission Diagnosis Admission Status: Observation Clinical Quality Measures DVT/VTE Risk/Contraindication: Risk Factor Score Per Nursin RFS Level Per Nursing on Admit: 4+=Very High ISRAEL RIBEIRO DO November 15, 2017 08:20
[2017-11-15] MEDS: NICOTINE 14 MG (NICODERM) PATCH TD SCH (08:44)
[2017-11-15] MEDS ORDERED: methylPREDNISolone 125 MG (Solu-MEDROL) VIAL IV SCH (09:00)
[2017-11-15] MEDS ORDERED: GUAI177L6 PO (10:34)
[2017-11-15] MEDS ORDERED: SUCR1ORA5 PO (10:34)
[2017-11-15] MEDS ORDERED: RT-ALBUINH IH (10:34)
[2017-11-15] MEDS: ENOXAPARIN 40 MG/0.4 ML (LOVENOX) SYR SC SCH (10:40)
[2017-11-15] MEDS: guaiFENesin (MUCINEX) 600 MG TAB PO SCH ×2 (10:40→23:50)
[2017-11-15 12:00] VITALS: BP 96/64
[2017-11-15] MEDS ORDERED: NON-FORMULARY MEDICATION 1 EA EA (Acetaminophen 500 MG) PO PRN (12:00)
[2017-11-15] MEDS ORDERED: NON-FORMULARY MEDICATION 1 EA EA (Guaifenesin/Dextromethorphan (Guaifenesin Dm Syrup) 10 M PO PRN (12:00)
[2017-11-15] MEDS ORDERED: GLUCAGON EMERGENCY 1 MG/KIT IM PRN (12:00)
[2017-11-15] MEDS: methylPREDNISolone 40 MG/ML (Solu-MEDROL) VIAL IV SCH ×3 (12:15→23:50)
[2017-11-15] MEDS ORDERED: guaiFENesin/DM (ROBITUSSIN DM) 10 ML UDC PO PRN (12:30)
[2017-11-15] MEDS ORDERED: RT-ALBUTEROL SULF 2.5 MG/3 ML PRE-MIX VIAL INH SCH (14:00)
[2017-11-15 15:35] VITALS: BP 115/70
[2017-11-15] MEDS ORDERED: SUCRALFATE PO SCH (16:00)
[2017-11-15] MEDS: SUCRALFATE 1 GM (CARAFATE) TAB PO SCH ×2 (16:15→23:50)
[2017-11-15 19:50] VITALS: BP 132/78
[2017-11-15] MEDS ORDERED: GUAIFENESIN PO SCH (21:00)
[2017-11-15] MEDS ORDERED: NON-FORMULARY MEDICATION 1 EA EA (Carvedilol 3.125 MG) PO SCH (21:00)
[2017-11-15] MEDS ORDERED: NON-FORMULARY MEDICATION 1 EA EA (Guaifenesin/Dextromethorphan (Mucinex Dm ER 600-30 mg Ta PO SCH (21:00)
[2017-11-15] MEDS ORDERED: NON-FORMULARY MEDICATION 1 EA EA (Insulin Detemir (Levemir Flextouch) 18 UNITS) SC SCH (21:00)
[2017-11-15] MEDS ORDERED: NON-FORMULARY MEDICATION 1 EA EA (Lovastatin 10 MG) PO SCH (21:00)
[2017-11-15] MEDS ORDERED: DEXTROMETHORPHAN PO SCH (21:00)
[2017-11-15] MEDS ORDERED: [UNRECOGNIZED DRUG - OTHER] PO SCH (21:00)
[2017-11-15] MEDS: inSUlin DETERMIR 1 UNIT/0.01 ML (LEVEMIR) CHARGE PER UNIT SQ SCH (23:49)
[2017-11-15] MEDS: PANTOPRAZOLE 40 MG (PROTONIX) TAB PO SCH (23:50)
[2017-11-15] MEDS: CARVEDILOL 3.125 MG (COREG) TABLET PO SCH (23:50)
[2017-11-15] MEDS: SIMvastatin 10 MG (ZOCOR) TAB PO SCH (23:51)
[2017-11-15] MEDS: ALPRAZolam 0.25 MG (XANAX) TAB PO SCH (23:51)
[2017-11-16 00:55] VITALS: BP 139/79
[2017-11-16] MEDS: cefTRIAXone 1 GM/NS 50 ML IVPB IV SCH ×2 (03:41)
[2017-11-16 04:08] VITALS: BP 112/68
[2017-11-16] MEDS: RT-ALBUTEROL/IPRATROPIUM 3 ML (DUONEB) VIAL INH SCH ×6 (04:47→22:53)
[2017-11-16 05:46] LABS: HEMOGLOBIN 10.5 G/DL (11.5-16.0); MEAN PLATELET VOLUME 11.3 FL (7.4-10.4); RED BLOOD COUNT 4.35 10^6/uL (4.35-5.85); RED CELL DISTRIBUTION WIDTH 16.7 % (10.0-14.5); WHITE BLOOD COUNT 11.9 10^3/uL (4.3-11.0)
[2017-11-16] MEDS: CATHETER FLUSH 10 ML SYR IV SCH ×3 (06:30→22:00)
[2017-11-16 06:42] LABS: BUN/CREATININE RATIO 25; CALCIUM 9.2 MG/DL (8.5-10.1); CARBON DIOXIDE 22 MMOL/L (21-32); CHLORIDE 105 MMOL/L (98-107); CREATININE SERUM 0.57 MG/DL (0.60-1.30); GFR ESTIMATED > 60; GLUCOSE 305 MG/DL (70-105); POTASSIUM 4.4 MMOL/L (3.6-5.0); SODIUM 140 MMOL/L (135-145)
[2017-11-16] MEDS: SUCRALFATE 1 GM (CARAFATE) TAB PO SCH ×4 (06:42→22:47)
[2017-11-16] MEDS: PANTOPRAZOLE 40 MG (PROTONIX) TAB PO SCH ×2 (06:42→22:47)
[2017-11-16] MEDS: methylPREDNISolone 40 MG/ML (Solu-MEDROL) VIAL IV SCH ×3 (06:42→18:25)
[2017-11-16] MEDS: NS IV 1000 ML 1,000 ML IV SCH ×3 (06:42→21:09)
[2017-11-16] MEDS: inSUlin ASPART (NovoLOG) 1 UNIT/0.01 ML (CHARGE PER UNIT) SC SCH ×4 (06:47→22:49)
[2017-11-16 08:00] VITALS: BP 122/62
[2017-11-16] MEDS: ALPRAZolam 0.25 MG (XANAX) TAB PO SCH ×2 (09:19→22:47)
[2017-11-16] MEDS: guaiFENesin (MUCINEX) 600 MG TAB PO SCH ×2 (09:20→22:48)
[2017-11-16] MEDS: CARVEDILOL 3.125 MG (COREG) TABLET PO SCH ×2 (09:20→22:48)
[2017-11-16] MEDS: ASPIRIN 81 MG CHEW (CHILDREN'S ASA) PO SCH (09:20)
[2017-11-16] MEDS: ACETAMINOPHEN 500 MG TAB (TYLENOL) PO PRN ×2 (09:20→18:25)
[2017-11-16] MEDS: inSUlin DETERMIR 1 UNIT/0.01 ML (LEVEMIR) CHARGE PER UNIT SQ SCH (09:21)
[2017-11-16] MEDS: NICOTINE 14 MG (NICODERM) PATCH TD SCH (09:21)
[2017-11-16] MEDS: ENOXAPARIN 40 MG/0.4 ML (LOVENOX) SYR SC SCH (11:20)
[2017-11-16] MEDS ORDERED: inSUlin DETERMIR 1 UNIT/0.01 ML (LEVEMIR) CHARGE PER UNIT SQ NR (13:50)
--- NOTE | 2017-11-16 13:53 | Progress Note-Hospitalist ---
Subjective HPI/CC On Admission Date Seen by Provider: November 16, 2017 Time Seen by Provider: 10:45 Subjective/Events-last exam Review consultation report and history and physical by primary care provider Patient reports she is feeling better Patient nothing by mouth due to aspiration Patient one Centany done explained why we can't give her anything to eat to swallow and aspirated into her lungs Bowels are moving Denies any pain Reviewed meds and will increase insulin to long acting to accommodate for 300 blood sugars that are consistent Review of Systems General: Fatigue, Malaise HEENT: Dysphasia Pulmonary: Cough Focused Exam Lactate Level 11/14/17 22:28: Lactic Acid Level 0.69 Objective Exam Vital Signs Vital Signs Date Time Temp Pulse Resp B/P (MAP) Pulse Ox O2 Delivery O2 Flow Rate FiO2 11/16/17 11:17 92 Nasal Cannula 2.00 11/16/17 08:00 97.1 65 20 122/62 (82) 11/15/17 02:30 28 Capillary Refill : Less Than 3 Seconds General Appearance: No Apparent Distress, WD/WN, Chronically ill Neck: Full Range of Motion Respiratory: Lungs Clear, Normal Breath Sounds, Decreased Breath Sounds Cardiovascular: Regular Rate, Rhythm, No Edema Neurologic/Psychiatric: Alert, Oriented x3, No Motor/Sensory Deficits, Normal Mood/Affect Results/Procedures Lab Laboratory Tests 11/16/17 05:04 Patient resulted labs reviewed. Assessment/Plan Assessment and Plan Assess & Plan/Chief Complaint Assessment: Acute hypoxia likely due to mucous plugging PEG tube dysfunction Esophageal stenosis with stent placement Smoker Illicit drug abuse Plan: Maintain Rocephin IV steroids Abdomen long-acting insulin Home meds NPO Diagnosis/Problems Diagnosis/Problems (1) Hypoxia Status: Acute (2) Mucus plugging of bronchi Status: Acute (3) Smoker Status: Chronic (4) Hyperglycemia Status: Acute (5) Drug abuse Status: Chronic (6) PEG tube malfunction Status: Acute (7) Aspiration into lower respiratory tract Status: Acute Qualifiers: Encounter type: initial encounter Qualified Codes: T17.800A - Unspecified foreign body in other parts of respiratory tract causing asphyxiation, initial encounter Clinical Quality Measures DVT/VTE Risk/Contraindication: Risk Factor Score Per Nursin RFS Level Per Nursing on Admit: 4+=Very High SUNDAR LERMA DO November 16, 2017 13:53
[2017-11-16 15:50] VITALS: BP 126/70
[2017-11-16] MEDS ORDERED: inSUlin DETERMIR 1 UNIT/0.01 ML (LEVEMIR) CHARGE PER UNIT SQ SCH (21:00)
[2017-11-16] MEDS: SIMvastatin 10 MG (ZOCOR) TAB PO SCH (22:48)
[2017-11-17] MEDS: methylPREDNISolone 40 MG/ML (Solu-MEDROL) VIAL IV SCH ×3 (00:14→11:36)
[2017-11-17 00:20] VITALS: BP 105/68
[2017-11-17] MEDS: RT-ALBUTEROL/IPRATROPIUM 3 ML (DUONEB) VIAL INH SCH ×4 (02:29→14:35)
[2017-11-17] MEDS: cefTRIAXone 1 GM/NS 50 ML IVPB IV SCH ×2 (02:44)
[2017-11-17] MEDS: SUCRALFATE 1 GM (CARAFATE) TAB PO SCH ×3 (06:55→16:00)
[2017-11-17] MEDS: PANTOPRAZOLE 40 MG (PROTONIX) TAB PO SCH (06:55)
[2017-11-17] MEDS: ACETAMINOPHEN 500 MG TAB (TYLENOL) PO PRN (06:55)
[2017-11-17] MEDS: CATHETER FLUSH 10 ML SYR IV SCH ×2 (06:55→11:36)
[2017-11-17] MEDS: inSUlin ASPART (NovoLOG) 1 UNIT/0.01 ML (CHARGE PER UNIT) SC SCH ×3 (06:56→16:25)
[2017-11-17 07:03] LABS: BASOPHILS % (AUTO) 0 % (0-10); EOSINOPHILS % (AUTO) 0 % (0-10); HEMATOCRIT 35 % (35-52); HEMOGLOBIN 10.8 G/DL (11.5-16.0); LYMPHOCYTES # (AUTO) 1.1 X 10^3 (1.0-4.0); LYMPHOCYTES % (AUTO) 8 % (12-44); MEAN CORPUSCULAR HEMOGLOBIN 25 PG (25-34); MEAN CORPUSCULAR HGB CONC 31 G/DL (32-36); MEAN CORPUSCULAR VOLUME 80 FL (80-99); MEAN PLATELET VOLUME 11.1 FL (7.4-10.4); MONOCYTES # (AUTO) 0.5 X 10^3 (0.0-1.0); MONOCYTES % (AUTO) 4 % (0-12); NEUTROPHILS # (AUTO) 13.3 X 10^3 (1.8-7.8); NEUTROPHILS % (AUTO) 89 % (42-75); PLATELET COUNT 336 10^3/uL (130-400); RED BLOOD COUNT 4.33 10^6/uL (4.35-5.85); RED CELL DISTRIBUTION WIDTH 16.5 % (10.0-14.5); WHITE BLOOD COUNT 14.9 10^3/uL (4.3-11.0)
[2017-11-17 07:26] LABS: ALANINE AMINOTRANSFERASE 11 U/L (0-55); ALKALINE PHOSPHATASE 87 U/L (40-136); BILIRUBIN,TOTAL 0.2 MG/DL (0.1-1.0); BUN/CREATININE RATIO 29; CARBON DIOXIDE 27 MMOL/L (21-32); CHLORIDE 106 MMOL/L (98-107); CREATININE SERUM 0.55 MG/DL (0.60-1.30); GFR ESTIMATED > 60; GLUCOSE 268 MG/DL (70-105); POTASSIUM 4.2 MMOL/L (3.6-5.0); SODIUM 139 MMOL/L (135-145); TOTAL PROTEIN 6.7 GM/DL (6.4-8.2)
[2017-11-17 07:57] LABS: BAND NEUTROPHILS 2 %; BASOPHILS % (MANUAL) 0 %; EOSINOPHILS % (MANUAL) 0 %; LYMPHOCYTES % (MANUAL) 7 %; MONOCYTES % (MANUAL) 2 %; NEUTROPHILS % (MANUAL) 89 %; RBC MORPH NORMAL
[2017-11-17 08:00] VITALS: BP 157/75
[2017-11-17] MEDS: guaiFENesin (MUCINEX) 600 MG TAB PO SCH (09:38)
[2017-11-17] MEDS: ASPIRIN 81 MG CHEW (CHILDREN'S ASA) PO SCH (09:38)
[2017-11-17] MEDS: ALPRAZolam 0.25 MG (XANAX) TAB PO SCH (09:38)
[2017-11-17] MEDS: CARVEDILOL 3.125 MG (COREG) TABLET PO SCH (09:38)
[2017-11-17] MEDS: NICOTINE 14 MG (NICODERM) PATCH TD SCH (09:39)
[2017-11-17] MEDS: ENOXAPARIN 40 MG/0.4 ML (LOVENOX) SYR SC SCH (09:39)
[2017-11-17] MEDS: NS IV 1000 ML 1,000 ML IV SCH (11:36)
[2017-11-17] MEDS ORDERED: PRED10TA22 PO (12:34)
[2017-11-17] MEDS ORDERED: CEFD300C3 PO (12:34)
--- NOTE | 2017-11-17 12:36 | Discharge Summary-Hospitalist ---
Diagnosis/Chief Complaint Date of Admission November 14, 2017 at 22:54 Date of Discharge Discharge Date: November 17, 2017 Discharge Diagnosis (1) Hypoxia Status: Resolved (2) Mucus plugging of bronchi Status: Resolved (3) Smoker Status: Chronic (4) Hyperglycemia Status: Acute (5) Drug abuse Status: Chronic (6) PEG tube malfunction Status: Resolved (7) Aspiration into lower respiratory tract Status: Chronic Discharge Summary Discharge Physical Exam Allergies: Coded Allergies: Sulfa (Sulfonamide Antibiotics) (Verified Allergy, Mild, Rash, 07/12/16) Vitals & I&Os Vital Signs Date Time Temp Pulse Resp B/P (MAP) Pulse Ox O2 Delivery O2 Flow Rate FiO2 11/17/17 10:56 94 Nasal Cannula 2.00 11/17/17 10:10 97.2 11/17/17 08:00 59 20 157/75 (102) 11/15/17 02:30 28 General Appearance: Alert, Oriented X3, Cooperative Respiratory: Clear to Auscultation, Normal Air Movement Cardiovascular: Regular Rate, Normal S1, Normal S2 Hospital Course Hospital course: Patient had a standard hospital course she was admitted after PEG tube malfunction in the ER regressed to hypoxia and Dr. Ayala was consulted and assessed mucous plugging so she was placed on IV steroids and Rocephin antibiotics and patient overall improved rapidly she was maintained on nebulized treatments and oxygen supplementation during her hospital stay and she will have close follow-up at the senior care but she was deemed stable for discharge and she agreed to that and considering she most the time refused nebulizer treatments and medications that we were giving her she was ready for discharge. Labs (last 24 hrs) Laboratory Tests 11/16/17 15:53: Glucometer 287H 11/16/17 20:52: Glucometer 255H 11/17/17 05:29: Glucometer 282H 11/17/17 06:25: White Blood Count 14.9H, Red Blood Count 4.33L, Hemoglobin 10.8L, Hematocrit 35 , Mean Corpuscular Volume 80, Mean Corpuscular Hemoglobin 25, Mean Corpuscular Hemoglobin Concent 31L, Red Cell Distribution Width 16.5H, Platelet Count 336, Mean Platelet Volume 11.1H, Neutrophils (%) (Auto) 89H, Lymphocytes (%) (Auto) 8L, Monocytes (%) (Auto) 4, Eosinophils (%) (Auto) 0, Basophils (%) (Auto) 0, Neutrophils # (Auto) 13.3H, Lymphocytes # (Auto) 1.1, Monocytes # (Auto) 0.5, Eosinophils # (Auto) 0.0, Basophils # (Auto) 0.0, Neutrophils % (Manual) 89, Lymphocytes % (Manual) 7, Monocytes % (Manual) 2, Eosinophils % (Manual) 0, Basophils % (Manual) 0, Band Neutrophils 2, Blood Morphology Comment NORMAL, Sodium Level 139, Potassium Level 4.2, Chloride Level 106, Carbon Dioxide Level 27, Anion Gap 6, Blood Urea Nitrogen 16, Creatinine 0.55L, Estimat Glomerular Filtration Rate > 60, BUN/Creatinine Ratio 29, Glucose Level 268H, Calcium Level 9.0, Total Bilirubin 0.2, Aspartate Amino Transf (AST/SGOT) 8, Alanine Aminotransferase (ALT/SGPT) 11, Alkaline Phosphatase 87, Total Protein 6.7, Albumin 3.0L 11/17/17 11:05: Glucometer 241H Microbiology 11/14/17 Blood Culture - Preliminary, Resulted No growth Patient resulted labs reviewed. Pending Labs Laboratory Tests 11/17/17 11:05: Glucometer 241 Discussion & Recommendations Discharge Planning: <30 minutes discharge planning Discharge Home Medications: Active Scripts Active Prednisone 10 Mg Tab.ds.pk 10 Mg PO DAILY Take 6 tabs(60mg)daily,decrease by 1 tab(10MG)daily. Cefdinir 300 Mg Capsule 300 Mg PO BID Reported Ventolin Hfa (Albuterol Sulfate) 1 Puff Puff 2 Puff IH TID 1 PUFF = 90 MCG Mucinex Fast-Max Dm Max Liquid (Guaifenesin/Dextromethorphan) 180 Ml Liquid 20 Ml PO BID Carafate (Sucralfate) 1 Gm/10 Ml Oral.susp 10 Ml PO ACHS Citalopram HBr (Citalopram Hydrobromide) 20 Mg Tablet 20 Mg PO DAILY Carvedilol 3.125 Mg Tablet 3.125 Mg PO BID HOLD FOR SBP <100 OR PULSE <60 Pantoprazole Sodium 40 Mg Tablet.dr 40 Mg PO BID Guaifenesin Dm Syrup (Guaifenesin/Dextromethorphan) 5 Ml Syrup 10 Ml PO Q4H PRN Levemir Flextouch (Insulin Detemir) 100 Unit/1 Ml Insuln.pen 18 Units SC BID Glucagon Emergency Kit (Glucagon,Human Recombinant) 1 Mg/Kit Soln 1 Mg IM UD PRN Mucinex Dm ER 600-30 mg Tablet (Guaifenesin/Dextromethorphan) 1 Each Tab.er.12h 1 Tab PO BID Docusate Sodium 100 Mg Tablet 100 Mg PO BID Lovastatin 10 Mg Tablet 10 Mg PO HS Aspirin EC (Aspirin) 81 Mg Tablet.dr 81 Mg PO DAILY Alprazolam 0.25 Mg Tablet 0.25 Mg PO BID Humulin R (Insulin Regular, Human) 1,000 Units/10 Ml Soln SQ QID 60-200 =0 UNITS 201-250=3 UNITS 251-300=5 UNITS 301-350=7 UNITS 351-400=9 UNITS CALL MD IF OVER 400 Acetaminophen 500 Mg Tablet 500 Mg PO Q6H PRN Instructions to patient/family Please see electronic discharge instructions given to patient. Clinical Quality Measures DVT/VTE Risk/Contraindication: Risk Factor Score Per Nursin RFS Level Per Nursing on Admit: 4+=Very High Problem Qualifiers (1) Aspiration into lower respiratory tract: Encounter type: initial encounter Qualified Codes: T17.800A - Unspecified foreign body in other parts of respiratory tract causing asphyxiation, initial encounter SUNDAR LERMA DO November 17, 2017 12:36
[2017-11-17 16:48] VITALS: BP 157/75
== END 2017-11-17 12:35 ==
LOC: EDUNIT# 22:10 → ER 22:11 → 4TH 22:12 → UNDOADMOB 22:54 → 4TH 22:54 → UNDOADMOB 11-15 00:02 → UNDODISOB 11-17 16:56
PROVIDERS: ADMIT Family Medicine; ATTEND Family Medicine
DX: T17.800A Unspecified foreign body in other parts of respiratory tract causing asphyxiation, initial encounter (principal); Z93.1 Gastrostomy status; F17.210 Nicotine dependence, cigarettes, uncomplicated; R73.9 Hyperglycemia, unspecified; F19.10 Other psychoactive substance abuse, uncomplicated; Z79.4 Long term (current) use of insulin; Z79.899 Other long term (current) drug therapy; I10 Essential (primary) hypertension; E78.00 Pure hypercholesterolemia, unspecified; F41.9 Anxiety disorder, unspecified; F32.9 Major depressive disorder, single episode, unspecified
CPT/HCPCS: 36415; 71045; 80048; 80053; 82962; 83605; 83880; 85007; 85025; 85027; 85610; 87040; 94640; 94760; G0378

== ENCOUNTER 2017-11-19 10:15 | Emergency (ER) | payer MEDICAID ==
[~2017-11-19] VITALS: Ht 157.5 cm; Wt 48.6 kg
[~2017-11-19 10:15] MED LIST changes: +GUAI177L6 PO; +PRED10TA22 PO; +RT-ALBUINH IH; +SUCR1ORA5 PO
--- OUTSIDE RECORDS SUMMARY | 2017-11-19 10:20 | XMS REPORT | Clinical Summary ---
Author Author [facility] Organization [facility] Address Unknown Phone Unavailable Care Team Providers Care Continuity Manager Name Role Phone Self, Referral PCP Unavailable Source Comments Some departments are not documenting in the electronic medical record. If you do not see the information that you expected, contact Release of Information in the Health Information Management department at [phone] for further assistance in locating additional records.[facility] Allergies Not on File Current Medications [...]
--- NOTE | 2017-11-19 10:40 | ED GI ---
General Stated Complaint: PEG TUBE LEAKING Source of Information: Patient Exam Limitations: No Limitations History of Present Illness Date Seen by Provider: November 19, 2017 Time Seen by Provider: 10:20 Initial Comments This 42-year-old woman presents to the emergency room from the sn[facility] with snf staff. She complains of leaking of PEG tube feeds around the insertion of her PEG tube. She is not having any pain, irritation, or purulent drainage. Symptoms were first noticed this morning. Allergies and Home Medications Allergies Coded Allergies: Sulfa (Sulfonamide Antibiotics) (Verified Allergy, Mild, Rash, 07/12/16) Home Medications Acetaminophen 500 Mg Tablet, 500 MG PO Q6H PRN for PAIN-MILD OR TEMPATURE, ( Reported) Albuterol Sulfate 1 Puff Puff, 2 PUFF IH TID, (Reported) 1 PUFF = 90 MCG Alprazolam 0.25 Mg Tablet, 0.25 MG PO BID, (Reported) Aspirin 81 Mg Tablet.dr, 81 MG PO DAILY, (Reported) Carvedilol 3.125 Mg Tablet, 3.125 MG PO BID, (Reported) HOLD FOR SBP <100 OR PULSE <60 Cefdinir 300 Mg Capsule, 300 MG PO BID Prescribed by: SUNDAR LERMA on 11/17/17 1234 Citalopram Hydrobromide 20 Mg Tablet, 20 MG PO DAILY, (Reported) Docusate Sodium 100 Mg Tablet, 100 MG PO BID, (Reported) Glucagon,Human Recombinant 1 Mg/Kit Soln, 1 MG IM UD PRN for HYPOGLYCEMIA, ( Reported) Guaifenesin/Dextromethorphan 1 Each Tab.er.12h, 1 TAB PO BID, (Reported) Guaifenesin/Dextromethorphan 5 Ml Syrup, 10 ML PO Q4H PRN for COUGH, (Reported) Guaifenesin/Dextromethorphan 180 Ml Liquid, 20 ML PO BID, (Reported) Insulin Detemir 100 Unit/1 Ml Insuln.pen, 18 UNITS SC BID, (Reported) Insulin Regular, Human 1,000 Units/10 Ml Soln, SQ QID, (Reported) 60-200 =0 UNITS 201-250=3 UNITS 251-300=5 UNITS 301-350=7 UNITS 351-400=9 UNITS CALL MD IF OVER 400 Lovastatin 10 Mg Tablet, 10 MG PO HS, (Reported) Pantoprazole Sodium 40 Mg Tablet.dr, 40 MG PO BID, (Reported) Prednisone 10 Mg Tab.ds.pk, 10 MG PO DAILY Take 6 tabs(60mg)daily,decrease by 1 tab(10MG)daily. Prescribed by: SUNDAR LERMA on 11/17/17 1234 Sucralfate 1 Gm/10 Ml Oral.susp, 10 ML PO ACHS, (Reported) Patient Home Medication List Home Medication List Reviewed: Yes Review of Systems Constitutional: no symptoms reported EENTM: No Symptoms Reported Respiratory: No Symptoms Reported Cardiovascular: No Symptoms Reported Gastrointestinal: See HPI Genitourinary: No Symptoms Reported Musculoskeletal: no symptoms reported Skin: no symptoms reported Psychiatric/Neurological: No Symptoms Reported Past Wvobura-Kkrnmt-Wbycvo Hx Past Med/Social Hx: Reviewed and Corrections made Patient Social History Drug of Choice: polydrug abuse, meth Type Used: Cigarettes 2nd Hand Smoke Exposure: No Recent Foreign Travel: No Contact w/Someone Who Travel: No Recent Hopitalizations: No Immunizations Up To Date Tetanus Booster (TDap): Unknown Date of Pneumonia Vaccine: Aug 06, 2016 Date of Influenza Vaccine: Jun 24, 2016 Seasonal Allergies Seasonal Allergies: No Past Medical History Surgeries: Yes (ovarian cyst removed with ovary, L hip fx, peg tube, tracheostomy placement and removal) Abdominal, Tracheostomy Respiratory: Yes (hx of collapsed lung ) Pneumonia Cardiac: Yes High Cholesterol, Hypertension Neurological: Yes Seizure Disorder : No Reproductive Disorders: No Genitourinary: Yes (Yeast in urine, UTI, inct) Gastrointestinal: Yes (peg tube) Gastroesophageal Reflux, Gastrointestinal Bleed, Esophageal Varices Musculoskeletal: Yes (Lt hip fx) Fractures Endocrine: Yes Diabetes, Insulin dep HEENT: No Hearing Impairment: Denies Cancer: No Psychosocial: Yes Anxiety, Suicide Attempts, Depression Integumentary: Yes (red heels, coccyx) Blood Disorders: No Adverse Reaction/Blood Tranf: No Family Medical History Reviewed Nursing Family Hx Hypertension 19 FATHER No Pertinent Family Hx Physical Exam Vital Signs Vital Signs - First Documented 11/19/17 10:20 Temp 97.2 Pulse 81 Resp 20 B/P (MAP) 96/61 (73) Pulse Ox 94 Capillary Refill : General Appearance: WD/WN, no apparent distress Respiratory: normal breath sounds, no respiratory distress Gastrointestinal: normal bowel sounds, non tender, soft, other (firmness in the central abdomen from chronic scarring, stated as unchanged by patient. PEG tube is in place without any inflammation or purulent drainage. There is scant amount of drainage of stomach contents around the base of the PEG tube.) Neurologic/Psychiatric: alert, normal mood/affect, oriented x 3 Skin: normal color, warm/dry Progress/Results/Core Measures Results/Orders Vital Signs/I&O 11/19/17 11/19/17 10:20 10:42 Temp 97.2 97.2 Pulse 81 81 Resp 20 20 B/P (MAP) 96/61 (73) 96/61 (73) Pulse Ox 94 94 Progress Progress Note : Progress Note PEG tube was flushed and found to be functioning well. There was minimal drainage around the PEG tube site with flushing. The bulb of the PEG tube was checked. Approximately 6 mL of saline was withdrawn from the bulb and reinjected. Another 0.5 mL of saline was injected until it felt tight. The hub on the PEG tube was also tightened to between 4.5 and 5 cm on the PEG tube markings. PEG tube was again flushed and no leaking was noted after these adjustments were made. Departure Impression Primary Impression: PEG tube malfunction Disposition: HOME, SELF-CARE Condition: Improved Departure-Patient Inst. Decision time for Depature: 10:37 Referrals: RANDI RIBEIRO DO (PCP/Family) Primary Care Physician Patient Instructions: How to Care for Your PEG Tube Add. Discharge Instructions: Monitor your PEG tube for further leaking. If it continues to leak, you may try doing smaller feeds more often. Also check the external hub. It may need to be tightened toward the skin. If you have continued problems despite these measures, please see your primary care provider or a general surgeon. Return to care if you have worsening symptoms that require reassessment. Copy Copies To 1: RANDI RIBEIRO JOSHUA T MD November 19, 2017 10:40
[2017-11-19 10:42] VITALS: BP 96/61
== END 2017-11-19 10:45 | disposition home or self-care (01) ==
LOC: EDUNIT# 10:15 → ER 10:16
DX: K94.23 Gastrostomy malfunction (principal); E78.00 Pure hypercholesterolemia, unspecified; I10 Essential (primary) hypertension; G40.909 Epilepsy, unspecified, not intractable, without status epilepticus; K21.9 Gastro-esophageal reflux disease without esophagitis; F41.9 Anxiety disorder, unspecified; F32.9 Major depressive disorder, single episode, unspecified; Z91.5 Personal history of self-harm; Z87.19 Personal history of other diseases of the digestive system; Z90.722 Acquired absence of ovaries, bilateral; Z87.81 Personal history of (healed) traumatic fracture; Z87.01 Personal history of pneumonia (recurrent); Z79.52 Long term (current) use of systemic steroids; Z79.82 Long term (current) use of aspirin; Z79.4 Long term (current) use of insulin; Z87.2 Personal history of diseases of the skin and subcutaneous tissue; Z88.2 Allergy status to sulfonamides
CPT/HCPCS: 99283